=== PATIENT | male | born 1965 | race Caucasian/White ===

== ENCOUNTER → 2017-12-19 16:34 | Outpatient (CLI) | payer BC, SELFPAY ==
[2017-12-19 16:49] LABS: Basophils # 0.1 K/mm3 (0-0.2); Eosinophils # 0.4 K/mm3 (0.0-0.4); Eosinophils % 4.1 % (0.1-12.0); Hematocrit 41.9 % (42.0-52.0); Hemoglobin 13.5 g/dL (14.1-18.0); Lymphocytes # 2.3 K/mm3 (0.7-4.5); Lymphocytes % 23.7 K/mm3 (10-50); Mean Corpuscular HGB Conc 32.2 g/dL (31.8-35.4); Mean Corpuscular Hemoglobin 27.2 pg (27.0-31.2); Mean Corpuscular Volume 84.4 fl (80-94); Mean Platelet Volume 6.7 fl (7.4-10.4); Monocytes # 0.6 K/mm3 (0.1-1.0); Monocytes % 5.7 % (1.7-9.3); Neutrophils # 6.5 K/mm3 (1.8-7.8); Neutrophils % 65.4 % (37.0-80.0); Platelet Count 437 K/mm3 (142-424); Red Blood Count 4.97 M/mm3 (4.60-6.20); White Blood Count 9.9 K/mm3 (4.8-10.8)
[2017-12-19 20:22] LABS: Anion Gap 12.6 mEq/L (5-15); Blood Urea Nitrogen 21 mg/dL (7-18); Calcium 9.3 mg/dL (8.5-10.1); Carbon Dioxide 27 mmol/L (21.0-32.0); Chloride 104 mmol/L (98-107); Creatinine,Serum 1.24 mg/dL (0.70-1.30); Estimated Glomerular Filt Rate 61 ml/min (>60); GFR (African American) 74 ML/MIN (>60); Glucose 84 mg/dL (74-106); Potassium 4.6 mmoL/L (3.5-5.1); Sodium 139 mmol/L (136-145)
== END ==
PROVIDERS: Visit Provider Otolaryngology
DX: Z01.818 Encounter for other preprocedural examination (principal); K13.21 Leukoplakia of oral mucosa, including tongue
CPT/HCPCS: 36415; 80048; 85025

== ENCOUNTER → 2017-12-28 09:26 | Outpatient (CLI) | payer BC, SELFPAY ==
--- NOTE | 2017-12-28 09:38 | XR_ITS ---
XR chest 2V HISTORY: Smoker, hypertension, cough, chest pain ITS.REASON: HTN, SMOKER ORDERING PHYSICIAN: Prashant Andrade MD PATIENT AGE: 52 years COMPARISON: 04/02/2011 FINDINGS: Unremarkable cardiovascular structures. Hyperinflation with attenuation of the peripheral pulmonary vessels consistent with COPD. No lobar consolidation or collapse. Slight increased density is present over both seventh ribs anteriorly probably related to soft tissue attenuation. IMPRESSION: COPD, no change with no acute finding
== END ==
PROVIDERS: PCP Orthopaedic Surgery Orthopaedic Trauma; Visit Provider Otolaryngology
DX: Z01.818 Encounter for other preprocedural examination (principal); K13.21 Leukoplakia of oral mucosa, including tongue
CPT/HCPCS: 71046

== ENCOUNTER → 2018-01-18 13:20 | Outpatient (CLI) | payer BC, SELFPAY ==
[2018-01-18 14:55] VITALS: PULSE 70; PULSE 78
== END ==
PROVIDERS: Family Provider Family Medicine; PCP Family Medicine; Visit Provider Internal Medicine
DX: J44.9 Chronic obstructive pulmonary disease, unspecified (principal); I51.7 Cardiomegaly; Q67.6 Pectus excavatum; R06.02 Shortness of breath; I25.118 Atherosclerotic heart disease of native coronary artery with other forms of angina pectoris; Z72.0 Tobacco use
CPT/HCPCS: 93306; 94060; 94640

== ENCOUNTER → 2018-11-17 10:00 | Outpatient (CLI) | payer BC, SELFPAY ==
--- NOTE | 2018-11-17 10:24 | US_ITS ---
US Kidney CLINICAL INDICATION: ITS.REASON: RENAL INSUFFICIENCY ORDERING PHYSICIAN: Dorota Patton MD PATIENT AGE: 53 years Comparison: None FINDINGS: Kidneys are normal size shape and position. No hydronephrosis. No renal mass or perinephric fluid. IMPRESSION: Negative bilateral renal ultrasound
== END ==
PROVIDERS: PCP Family Medicine; Visit Provider Family Medicine
DX: N28.9 Disorder of kidney and ureter, unspecified (principal)
CPT/HCPCS: 76770

== ENCOUNTER → 2019-02-06 16:36 | Outpatient (CLI) | payer BC, SELFPAY ==
[2019-02-06 16:49] LABS: Basophils % 0.3 % (0.1-2.0); Eosinophils # 0.5 K/mm3 (0.0-0.4); Eosinophils % 3.5 % (0.1-12.0); Hematocrit 40.4 % (42.0-52.0); Hemoglobin 12.6 g/dL (14.1-18.0); Lymphocytes # 2.2 K/mm3 (0.7-4.5); Mean Corpuscular HGB Conc 31.1 g/dL (31.8-35.4); Mean Corpuscular Hemoglobin 26.4 pg (27.0-31.2); Mean Corpuscular Volume 84.9 fl (80-94); Mean Platelet Volume 7.3 fl (7.4-10.4); Monocytes # 0.6 K/mm3 (0.1-1.0); Monocytes % 3.6 % (1.7-9.3); Neutrophils # 12.1 K/mm3 (1.8-7.8); Neutrophils % 78.6 % (37.0-80.0); Platelet Count 573 K/mm3 (142-424); Red Blood Count 4.76 M/mm3 (4.60-6.20); Red Cell Distribution Width 14.8 % (11.5-17.5); White Blood Count 15.4 K/mm3 (4.8-10.8)
[2019-02-06 17:02] LABS: MANUAL DIFFERENTIAL MANUAL DIFFERENTIAL (MANUAL DIFF)
[2019-02-06 20:09] LABS: Eosinophils % 4 % (0-3); Lymphocytes % 13 % (10-50); Monocytes % 5 % (2-9); Neutrophils % 78 % (42-76); Platelet Estimate Slight Increase; RBC Morphology Normal; Total Cells Counted 100
== END ==
PROVIDERS: Visit Provider Family Medicine
DX: D72.825 Bandemia (principal)
CPT/HCPCS: 36415; 85007; 85025

== ENCOUNTER → 2019-12-10 11:02 | Outpatient (CLI) | payer BC, SELFPAY ==
--- NOTE | 2019-12-10 11:12 | FL_ITS ---
PROCEDURE: FL UPPER GI W AIR CLINICAL INDICATION: GERD W/ESOPHAGITIS Patients states any hot food bothers him, since last 3-4 months. COMPARISON: No exams were available for comparison TECHNIQUE: Multiple digital fluoroscopic and spot images were obtained following oral ingestion of effervescent crystals and thick/thin liquid barium contrast. FLUOROSCOPY TIME : 1.47 fluoro time. FINDINGS: There is normal swallowing mechanism and esophageal peristalsis demonstrated. The esophagus appears in normal course and caliber and is well distended on double contrast views. The mucosal pattern is unremarkable. The gastroesophageal junction is normally positioned. No gastroesophageal reflux was detected. The stomach is normal in course with normal mucosal pattern. No evidence of gastric ulceration or other deformity is seen. The duodenal bulb, duodenal loop and upper jejunum are normal. IMPRESSION: Normal upper GI. Dictated by: Jocy Ventura 12/10/2019 12:36 Electronically signed by Jocy Ventura in [place] 12/10/2019 12:36
== END ==
PROVIDERS: PCP Family Medicine; Visit Provider Family Medicine
DX: K21.0 Gastro-esophageal reflux disease with esophagitis (principal)
CPT/HCPCS: 74246

== ENCOUNTER → 2020-12-16 06:57 | Outpatient (CLI) | payer BC, SELFPAY ==
--- NOTE | 2020-12-16 | CA_ITS ---
APPROVED REPORT Exam: Exercise Treadmill Technologist: dori vera, Ht: 5 ft 8 in Wt: 167 lbs BSA: 1.89 m2 HR: 60 bpm BP: 171/73 mmHg Indications: CP Medical History Medications: Asa,,,,, Lipitor,,,,, Diclofenac,,,,, TriaMt/HCTZ,,,,, AmlodiNPINE,,,,, Allergies: NKA Cardiac Risk Factors: HTN, Hyperlipidemia, FHX of CAD, Smoking Stress Test Details Test: Mc HR Resting HR: 68 bpm Max Heart Rate (APMHR): 163.320562 bpm Max HR Achieved: 123 bpm Target HR (85% APMHR): 138.580097 bpm % of APMHR: 75.46 Recovery HR: 111 bpm BP Resting BP: 171.0/73.0 mmHg Max BP: 182.0/70.0 mmHg Recovery BP: 182.0/70.0 mmHg ECG Resting ECG: NSR, ST-T abns inferiorly & laterally Clinical Exercise duration: 8:45 min Highest Stage Achieved: Stage 3: 3.4 mph at 14% grade. Exercise capacity: 10.1 METs Stress ECG Conclusion Patient had increasing chest pain during exercise with SOA. Rare PAC and PVC. 1-2mm of horizontal and downsloping ST depression inferiorly. 1-1.5mm horizontal ST depression anterolaterally. EKG changes positive for ischemia with specificity due to baseline abns. Images reported separately. Test Summary REST . . . . . . . Standing REST . . . . . . . Sitting REST 05:28 0.0 0.0 68 . 171/ 73 . . Stage 1 01:00 10.0 1.7 94 . . . . Stage 1 02:00 10.0 1.7 99 . . . . Stage 1 03:00 10.0 1.7 96 . 158/ 70 . . Stage 2 01:00 12.0 2.5 103 . . . . Stage 2 02:00 12.0 2.5 109 . . . . Stage 2 03:00 12.0 2.5 108 . 178/ 74 . . Stage 3 01:00 14.0 3.4 111 . . . . Stage 3 . . . . . . . Myoview Injected Stage 3 02:00 14.0 3.4 117 . . . . Stage 3 02:45 14.0 3.4 123 . . . Stop exercise at 08:45 RECOVERY 01:00 0.0 0.0 99 . . . . RECOVERY 02:00 0.0 0.0 90 . 182/ 70 . . RECOVERY 03:00 0.0 0.0 83 . 182/ 70 . . RECOVERY 04:00 0.0 0.0 72 . 181/ 76 . . RECOVERY 05:00 0.0 0.0 90 . 181/ 76 . . RECOVERY 06:00 0.0 0.0 78 . 181/ 76 . . RECOVERY 06:52 0.0 0.0 82 . 180/ 60 . . Electronically signed by : Kaushik Leon, 12/16/2020 21:11:06
--- NOTE | 2020-12-16 07:03 | NM_ITS ---
APPROVED REPORT Exam: Nuclear Stress Test Indication: Chest pain, SOB, HTN, Tobacco use, Family history Patient Location: Outpatient Stress Tech: Bessy Nassar [place] Tech:Kaylynn Mancia, ARRT, RT (R)(N) Ht: 5 ft 8 in Wt: 167 lbs HR: 60 bpm BP: 171/73 mmHg BSA: 1.89 m2 BMI: 25.3 History: Chest pain, SOB, HTN, Tobacco use, Family history Procedure: Patient exercised on Mc protocol 8:45 minutes and sec, resting heart rate 60 bpm, resting blood pressure 171/73 mmHg, with exercise maximum heart rate achived was 123 bpm which is 75 % of the maximum predicted heart rate and blood pressure was 182/70 mmHg. Test was stopped due to SOA and chest pain. Patient denied any complaint of chest pain. Patient has Good exercise capacity, achieved 10.1 METs of workload on treadmill, the blood pressure response to exercise was Abnormal. Electrocardiogram Resting electrocardiogram shows sinus rhythm nonspecific ST-T changes, with exercise there is 1.[address] segment depression noted from the baseline EKG. The EKG portion of the exercise Myoview is positive for ischemia. Cardiac Stress and Resting SPECT Images: Cardiac Stress and Resting SPECT images were obtained using technetium 99m Myoview 32.3 mCi stress and 10.06 mCi at rest. Gated SPECT for analysis of segmental wall motion and calculation of the ejection fraction also done, prone images were also obtained. Cardiac stress and resting SPECT images show reversible ischemia involving a moderate to large sized area of anterolateral wall, computer derived ejection fraction is 52% with moderate anterolateral wall hypokinesis, there is transient ischemic dilatation of the left ventricle seen, raising the concerns for presence of multivessel coronary artery disease. Conclusion: 1. The EKG portion of the exercise Myoview is positive for ischemia, patient has good exercise capacity achieved 10.1 METs of workload on treadmill, the blood pressure response to exercise was abnormal, test was stopped due to chest discomfort. 2. Scintigraphic evidence of reversible ischemia involving the anterolateral wall as described above, there is transient ischemic dilatation of the left ventricle seen, raising the concerns for presence of multivessel coronary artery disease. Computer derived ejection fraction is 52% with segmental wall motion abnormality described above, right ventricle is mildly enlarged with normal contractility. 3. Abnormal exercise Myoview study. Electronically signed by : Kaushik Leon, 12/16/2020 21:20:19
--- NOTE | 2020-12-16 08:11 | US_ITS ---
PROCEDURE: US ABDOMEN LIMITED CLINICAL INDICATION: EPIGASTRIC PAIN COMPARISON: US RUQ US RUQ-(ABD LTD)1ORGAN/QUAD/FU from 06/07/2016 FINDINGS: PANCREAS: Unremarkable. No obvious mass or abnormal fluid collection. No ductal dilatation LIVER: No focal liver lesions demonstrated. Homogeneous echogenicity. No intrahepatic biliary ductal dilatation evident. There is appropriate direction of blood flow within a non dilated portal vein RIGHT KIDNEY: Unremarkable. Normal size and echogenicity. No hydronephrosis GALLBLADDER: No shadowing stones are apparent. There is a small polyp along the anterior wall the gallbladder at approximately 3 mm. Gallbladder wall is upper normal from 3-4 mm. IMPRESSION: Small gallbladder polyp with gallbladder wall thickness upper normal at 3 to 4 mm. No shadowing stones or biliary dilatation. Dictated by: Marquis Ham MD 12/16/2020 15:25 Marquis Ham MD in [place] 12/16/2020 15:25
--- NOTE | 2020-12-16 08:33 | HMH.ITSHM ---
Current Home Medications as stated by this patient Arjun Melton or auto claim representative. []LEVOCETIRIZINE CETIRIZINE MONTELUKAST FAMOTIDINE LISINOPRIL METOPROLOL ESOMEPRAZOLE
== END ==
PROVIDERS: PCP Family Medicine; Visit Provider Family Medicine
DX: R07.9 Chest pain, unspecified (principal); R10.13 Epigastric pain
CPT/HCPCS: 76705; 78452; 93017; A9502

== ENCOUNTER → 2021-05-26 14:09 | Outpatient (CLI) | payer BC, SELFPAY ==
--- NOTE | 2021-05-26 14:17 | XR_ITS ---
FINAL REPORT CLINICAL HISTORY: COVID TESTING..cough..fever..sob FINDINGS: SINGLE VIEW CHEST. The heart is normal in size. The mediastinum is unremarkable. The lungs are clear. There is no pneumothorax. IMPRESSION: No acute process. Reviewed, Interpreted and Dictated by Saroj Putnam III, MD Transcribed by Lilo Stover Authenticated by Saroj Putnam III, MD on 05/26/2021 03:44:24 PM [facility]
[2021-05-26 14:33] LABS: Basophils # 0.1 K/mm3 (0-0.2); Basophils % 1.6 % (0.1-2.0); Eosinophils # 0.1 K/mm3 (0.0-0.4); Eosinophils % 1.2 % (0.1-12.0); Hematocrit 35.8 % (42.0-52.0); Hemoglobin 11.3 g/dL (14.1-18.0); Lymphocytes # 1.1 K/mm3 (0.7-4.5); Lymphocytes % 18.8 % (10-50); Mean Corpuscular HGB Conc 31.6 g/dL (31.8-35.4); Mean Corpuscular Hemoglobin 25.7 pg (27.0-31.2); Mean Corpuscular Volume 81.3 fl (80-94); Mean Platelet Volume 7.9 fl (7.4-10.4); Monocytes # 0.8 K/mm3 (0.1-1.0); Monocytes % 13.3 % (1.7-9.3); Neutrophils # 3.8 K/mm3 (1.8-7.8); Neutrophils % 65.1 % (37.0-80.0); Platelet Count 438 K/mm3 (142-424); Red Cell Distribution Width 16.9 % (11.5-17.5); White Blood Count 5.9 K/mm3 (4.8-10.8)
== END ==
PROVIDERS: PCP Family Medicine; Visit Provider Nurse Practitioner
DX: U07.1 COVID-19 (principal)
CPT/HCPCS: 36415; 71045; 85025; C9803; U0003; U0005

== ENCOUNTER 2023-01-14 15:10 | Outpatient (CLI) | payer BC, SELFPAY ==
[2023-01-14 15:18] VITALS: BP 194/90; PULSE 70; RESP 16; TEMP 36.7
[2023-01-14 16:45] VITALS: BP 188/82; PULSE 79; RESP 16
[2023-01-14 16:50] VITALS: BP 188/82; PULSE 79; RESP 18; O2SAT 98
== END 2023-01-14 16:50 | disposition home or self-care (01) ==
LOC: INF 15:11
PROVIDERS: PCP Family Medicine; Visit Provider Physician Assistant
DX: E86.0 Dehydration (principal); K52.9 Noninfective gastroenteritis and colitis, unspecified
CPT/HCPCS: 96360; J2405

== ENCOUNTER → 2023-01-14 15:25 | Outpatient (CLI) | payer BC, SELFPAY ==
[2023-01-14 16:54] LABS: Alanine Aminotransferase 19 U/L (12-78); Albumin Level 3.9 g/dl (3.5-5.0); Albumin/Globulin Ratio 1.3 (1.1-1.8); Alkaline Phosphatase 85 U/L (38-126); Amylase 99 U/L (30-110); Anion Gap 15.9 mEq/L (5-15); Aspartate Amino Transferase 24 U/L (17-59); Bilirubin,Total 0.2 mg/dl (0.2-1.3); Blood Urea Nitrogen 16 mg/dl (9-20); Calcium 9.3 mg/dl (8.4-10.2); Carbon Dioxide 33 mmol/L (22.0-30.0); Chloride 92 mmol/L (98-107); Estimated Glomerular Filt Rate 52 ml/min (>60); GFR (African American) 63 ML/MIN (>60); Glucose 105 mg/dl (74-100); Lipase 119 U/L (23-300); Potassium 3.9 mmoL/L (3.5-5.1); Sodium 137 mmol/L (136-145); Total Protein,Serum 6.9 g/dl (6.3-8.2)
== END ==
PROVIDERS: PCP Physician Assistant; Visit Provider Physician Assistant
DX: K52.9 Noninfective gastroenteritis and colitis, unspecified (principal)
CPT/HCPCS: 80053; 82150; 83690

== ENCOUNTER 2023-06-09 08:54 | Outpatient (RCR) | payer BC, SELFPAY | END 2023-09-07 14:00 | disposition home or self-care (01) | LOC: PT 08:54 | PROVIDERS: Visit Provider Internal Medicine Cardiovascular Disease | DX: I25.10 Atherosclerotic heart disease of native coronary artery without angina pectoris (principal); Z95.5 Presence of coronary angioplasty implant and graft | CPT/HCPCS: 93798 ==

== ENCOUNTER 2023-06-30 14:55 | Inpatient (IN) | payer BC, SELFPAY ==
--- NOTE | 2023-06-30 15:05 | EXP.CARD.CON ---
History of Present Illness History of Present Illness Consult date: 06/30/23 Consult reason: chest pain Chief complaint: chest pain History of present illness: This is a 57-year-old white male with past medical history of coronary artery disease with recent stenting to mid to distal circumflex with crossing of OM in May 2023, remaining mild plaque in mid LAD and mild to moderate disease in RCA, uncontrolled hypertension, hyperlipidemia, former tobacco user and chronic kidney disease presented to cardiology clinic today for a second opinion regarding chest pain. Patient reports he had a left heart cath in May by Dr. Dorsey at [facility] resulting in stenting to mid to distal circumflex. Patient reports he has had continued chest pain since then both with activity and at rest. Patient followed up with Dr. Romero and was prescribed Ranexa without relief of symptoms. Patient decided to get a second opinion from [facility] cardiology today. Patient describes progressive and worsening midsternal chest pain without radiation worse with activity and present at rest most days. Of note patient's systolic blood pressure was 140 in the office. Patient had an echo in May 2023 at [facility] which showed a normal ejection fraction and no significant valve disease. Due to patient experiencing continued progressive and worsening chest pain while on 3 antianginals patient will be admitted for unstable angina and will undergo left heart catheterization for further evaluation. Office EKG shows sinus rhythm with ST-T depression in the inferior and lateral leads with T wave inversion noted. Labs are pending. [facility] Disclaimer: The information contained in this section may have been updated after the patient was seen, as this information can be updated by other users. Medical History COPD (chronic obstructive pulmonary disease) Fatigue SMOOTH (obstructive sleep apnea) Pectus excavatum Right atrial enlargement Social History Smoking Status: Current every day smoker tobacco type: cigarettes packs per day: 1 second hand exposure: Yes alcohol intake: current substance use type: denies use current occupational status: employed Travel in the last 8 weeks: None household members: significant other housing: house current occupation: [employer] current occupational exposures/hazards: No caffeine: No Review of Systems Review of Systems Review of systems:: pertinent systems reviewed and negative unless documented below *Cardiovascular Cardiovascular: Reports chest pain Exam Constitutional Constitutional: no acute distress *Routine Respiratory Exam Respiratory: Present CTA bilaterally and symmetric chest movement *Routine Cardiovascular Exam Cardiovascular: Present RRR, Normal S1 and Normal S2 *Routine Abdominal Exam Abdominal: Present soft and normoactive bowel sounds; Absent tenderness *Routine Extremities Exam Extremities: Present full ROM and normal capillary refill; Absent edema *Routine Skin Exam Skin: Present intact, dry and warm Detailed Neck Exam: Thyroids Thyroid: Absent bruit Meds Home Medications and Allergies Home Medications Medication Instructions Recorded Confirmed Type aspirin 81 mg tablet,delayed 81 mg PO DAILY Heart Health 12/28/17 06/30/23 History release clopidogrel 75 mg tablet 75 mg PO DAILY Platelet Inhibitor 01/02/21 06/30/23 History metoprolol succinate 50 mg 50 mg PO DAILY High Blood Pressure 01/02/21 06/30/23 History tablet,extended release 24 hr atorvastatin 80 mg tablet 80 mg PO HS Cholesterol 06/30/23 06/30/23 History cholecalciferol (vitamin D3) 50 50 mcg PO DAILY Supplement 06/30/23 06/30/23 History mcg (2,000 unit) capsule ferrous sulfate 325 mg (65 mg 325 mg PO DAILY 06/30/23 06/30/23 History iron) tablet,delayed release isosorbide mononitrate 30 mg 30 mg PO DAILY High Blood Pressure 06/30/23 06/30/23 History tablet,extended release 24 hr lisinopril 10 mg tablet 10 mg PO DAILY High Blood Pressure 06/30/23 06/30/23 History nitroglycerin 0.4 mg sublingual 0.4 mg sublingual Q5MINP PRN Chest 06/30/23 06/30/23 History tablet Pain omeprazole 40 mg capsule,delayed 40 mg PO DAILY Acid Reflux 06/30/23 06/30/23 History release pramipexole 0.125 mg tablet 0.125 mg PO DAILY 06/30/23 06/30/23 History ranolazine 500 mg tablet,extended 500 mg PO BID Angina 06/30/23 06/30/23 History release,12 hr New Prescriptions to Start Prescriptions: Allergies Allergy/AdvReac Type Severity Reaction Status Date / Time No Known Allergies Allergy Verified 06/30/23 13:18 Assessment and Plan *Assessment and plan (1) HLD (hyperlipidemia): Status: Chronic Qualifiers: Hyperlipidemia type: other hyperlipidemia Qualified Code(s): E78.4 - Other hyperlipidemia Category: Medical Code(s): E78.5 - Hyperlipidemia, unspecified (2) CAD (coronary artery disease): Status: Chronic Qualifiers: Associated angina: with other forms of angina Coronary Disease-Associated Artery/Lesion type: false pass artery [place] vs. transplanted heart: false pass heart Qualified Code(s): I25.118 - Atherosclerotic heart disease of false pass coronary artery with other forms of angina pectoris Category: Medical Code(s): I25.10 - Atherosclerotic heart disease of false pass coronary artery without angina pectoris (3) HHD (hypertensive heart disease): Status: Chronic Qualifiers: Heart failure presence: without heart failure Qualified Code(s): I11.9 - Hypertensive heart disease without heart failure Category: Medical Code(s): I11.9 - Hypertensive heart disease without heart failure (4) COPD (chronic obstructive pulmonary disease): Status: Chronic Qualifiers: COPD type: emphysema Emphysema type: other Qualified Code(s): J43.8 - Other emphysema Category: Medical Code(s): J44.9 - Chronic obstructive pulmonary disease, unspecified (5) SMOOTH (obstructive sleep apnea): Status: Chronic Category: Medical Code(s): G47.33 - Obstructive sleep apnea (adult) (pediatric) (6) Tobacco user: Status: Chronic Category: Social Hx Code(s): Z72.0 - Tobacco use Plan Unstable angina CCS 3 CAD -Echo06/03/2023: Normal LV size and function, no significant valve disease. Aortic root 3.7 cm. Will repeat limited echo. -[facility] 06/06/2023: Dr. Khalil, 3.0 x 28 mm Synergy MART to mid to distal circumflex with crossing of OM but with REED-3 flow. Remaining mild plaque in mid LAD. Mild to moderate disease of RCA noted. -Recurrent angina despite 3 antianginal medications and DAPT therapy with aspirin and Plavix (intolerant of Brilinta) -EKG today is NSR with ST-T wave depression in the inferior and lateral leads with T wave inversion -Plan for [facility] tomorrow. Discussed risk versus benefits with patient he is agreeable, continue dapt with aspirin and plavix, BB and statin -Dose of Ranexa increased to 1000 mg p.o. twice daily -Nitropaste applied -Heparin drip started HTN -continue metoprolol 50 mg daily. Increase lisinopril to 20mg daily HLD -LDL goal < 55, LDL is pending, on atorvastatin 80mg daily Tobacco use -smoking cessation 12 weeks ago CKD -stage II with creatinine 1.5 and GFR 50 06/30/2023: Will proceed with left heart catheterization tomorrow to further evaluate coronary artery disease. Patient is agreeable to plan. Cardiac meds: Aspirin 81 mg p.o. daily Atorvastatin 80 mg p.o. daily Plavix 75 mg p.o. daily Isosorbide mononitrate 30 mg p.o. daily Lisinopril 20 mg daily Metoprolol succinate 50 mg p.o. daily Omeprazole 40 mg p.o. daily Ranexa 1000 mg p.o. twice daily
[2023-06-30 15:11] VITALS: O2SAT 98
--- NOTE | 2023-06-30 15:19 | CA_ITS ---
APPROVED REPORT EXAM: Limited 2D Echocardiogram Final Inspection Supervisor: Jyoti East RT(R) Ht: 5 ft 8 in Wt: 143lbs BSA: 1.77 BP: 148/70 mmHg Indications: angina, COPD, smoker, recent heart cath and recent echo (06/03/23) at outside facility with stent placed. fatigue post cath. HTN, hyperlipidemia, SMOOTH, CAD. Ordered as limited echo for EF assessment. 2D Dimensions LVEF (Borges's) 63.20 % M: 52 - 72 LV Volume 94.40 mL M: 62 - 150 LV Volume Index 53.853095 mL/m2 M: 34 - 74 EF AP4 63.50 % EF AP2 62.7 % EF BP 63.2 % GL Strain -16.9 % M-Mode Dimensions RVDd 2.73 cm (0.9-2.6) LVDd 4.95 cm (3.5-5.7) LVDs 3.98 cm (3.5-5.7) IVSd 0.75 cm (0.6-1.1) PWd 0.79 cm (0.6-1.1) EF (Teich) 50.10% FS 19.60% EDV (Teich) 115.50 mL ESV (Teich) 69.20 mL LV Diastology E Decel Time 230 (160-240 msec) E/A Ratio 1.1 Mitral Valve MV E Max Regulo. 83.0 (40-130 cm/s) MV A Velocity 77.0 (40-130 cm/s) E/A Ratio 1.08 MV PHT 67.0 ms Other Information Study Quality: Fair Conclusion This is a limited TTE to evaluate for LVEF. Limited windows were obtained. The left ventricle is normal in size. There is normal LV wall thickness. There are no regional wall motion abnormalities noted. LVEF is 60%. The right ventricle is normal in size and function. There is no pericardial effusion present. Electronically signed by : Alivia Hall MD 07/02/2023 19:18:19
[2023-06-30 15:20] VITALS: BP 144/86; PULSE 65; RESP 18; TEMP 36.8; O2SAT 98; BMI 23.1
--- NOTE | 2023-06-30 15:30 | P.CONPHA_ITS ---
[facility] Pharmacy Heparin Dosing Demographic Data Admission date:: 06/30/23 Date: 06/30/23 Time: 15:31 Allergies Allergy/AdvReac Type Severity Reaction Status Date / Time No Known Allergies Allergy Verified 06/30/23 15:57 Height: 1.73 m Weight: 69.4 kg Indication Medication therapy:: Heparin Current Active Problems (Updated 07/01/23 @ 09:06 by ISAÍAS Jacobo) Tobacco user (Chronic) Chronic renal insufficiency, stage II (mild) (Acute) Chest pain (Acute) History of coronary artery stent placement (Acute) CAD (coronary artery disease) (Chronic) HHD (hypertensive heart disease) (Chronic) HLD (hyperlipidemia) (Chronic) Fatigue (Chronic) SMOOTH (obstructive sleep apnea) (Chronic) COPD (chronic obstructive pulmonary disease) (Chronic) CVA?: No Bleeding problem?: No Kidney disease?: No GA?: No Desired PTT range:: 50-75 seconds Monitoring Dose Monitor 1: Date: 06/30/23 Time: 15:35 PTT Result:: 27.8 Infusion Rate:: 850 UNITS/HR Comment:: 4,000 UNIT BOLUS Dose Monitor 2: Date: 06/30/23 Time: 22:30 PTT Result:: 128.4 Infusion Rate:: DECREASE RATE TO 650 UNITS/HR Dose Monitor 3: Date: 07/01/23 Time: 05:00 PTT Result:: 100.5 Infusion Rate:: DECREASE RATE TO 450 UNITS/HR Dose Monitor 4: Date: 07/01/23 Time: 12:00 Comment:: PATIENT WAS TAKEN TO DIRECTOR OF SOFTWARE DEVELOPMENT AND HEPARIN DRIP WAS STOPPED Core Measures Is INR > or = 2 at discharge?: No Most Recent Labs:: N/A Were Heparin and Warfarin started on the same day?: No If not, why?: HEPARIN DRIP STOPPED AFTER CATH
--- NOTE | 2023-06-30 15:33 | HMH.PHAINT1 ---
Pharmacy Intervention Comments: MEDICATION RECONCILIATION COMPLETED ON PATIENT USING EXTERNAL FILL HISTORY FROM PHARMACY AND LIST FROM CARDIOLOGY OFFICE. -ROSITA VASQUEZ, [place]
[2023-06-30 15:43] LABS: Basophils # 0.1 K/mm3 (0-0.2); Basophils % 0.6 % (0.1-2.0); Eosinophils # 0.6 K/mm3 (0.0-0.4); Eosinophils % 7.2 % (0.1-12.0); Hematocrit 35.1 % (42.0-52.0); Hemoglobin 11.3 g/dL (14.1-18.0); Lymphocytes # 2.1 K/mm3 (0.7-4.5); Mean Corpuscular HGB Conc 32.2 g/dL (31.8-35.4); Mean Corpuscular Hemoglobin 25.3 pg (27.0-31.2); Mean Corpuscular Volume 78.6 fl (80-94); Mean Platelet Volume 7.7 fl (7.4-10.4); Monocytes # 0.4 K/mm3 (0.1-1.0); Monocytes % 5.3 % (1.7-9.3); Neutrophils # 4.6 K/mm3 (1.8-7.8); Platelet Count 538 K/mm3 (142-424); Red Blood Count 4.47 M/mm3 (4.60-6.20); Red Cell Distribution Width 16.4 % (11.5-17.5); White Blood Count 7.7 K/mm3 (4.8-10.8)
[2023-06-30 15:58] LABS: Alanine Aminotransferase 15 U/L (12-78); Albumin Level 4.3 g/dl (3.5-5.0); Albumin/Globulin Ratio 1.5 (1.1-1.8); Alkaline Phosphatase 59 U/L (38-126); Anion Gap 13.3 mEq/L (5-15); Aspartate Amino Transferase 23 U/L (17-59); Bilirubin,Total 0.2 mg/dl (0.2-1.3); Blood Urea Nitrogen 10 mg/dl (9-20); Calcium 9.2 mg/dl (8.4-10.2); Carbon Dioxide 29 mmol/L (22.0-30.0); Chloride 102 mmol/L (98-107); Chol/HDL Ratio 4.1 (1-3.5); Cholesterol 151 mg/dl (140-200); Creatinine Clearance Estimated 49 mL/min (50-200); Estimated Glomerular Filt Rate 44 ml/min (>60); GFR (African American) 54 ML/MIN (>60); Globulin 2.8 g/dL (1.3-3.2); Glucose 99 mg/dl (74-100); HDL Cholesterol 37 mg/dl (40-60); Potassium 4.3 mmoL/L (3.5-5.1); Sodium 140 mmol/L (136-145); Total Protein,Serum 7.1 g/dl (6.3-8.2); Triglycerides 227 mg/dl (30-150); VLDL Cholesterol 45 mg/dL (0-40)
[2023-06-30 16:00] VITALS: PULSE 60
[2023-06-30 16:02] LABS: PTT Heparin (inpatient only) 27.8 Seconds (23.6-34.0)
[2023-06-30 16:09] LABS: Direct LDL Cholesterol 73.51 mg/dL (100-129)
--- NOTE | 2023-06-30 16:17 | PC.NURSE ---
Called pharmacy and it's okay to start heparin gtt.
[2023-06-30] MEDS: HEPARIN SODIUM 5,000 UNIT/ML VIAL 4000 UNIT IV (16:26)
[2023-06-30] MEDS: NITROGLYCERIN 1 GM OINTMENT TD (16:26)
[2023-06-30] MEDS: PANTOPRAZOLE 40MG TABLET 40 MG PO (16:26)
[2023-06-30 16:27] LABS: Troponin I < 0.01 ng/ml (0.00-0.034)
[2023-06-30] MEDS: HEPARIN SODIUM,PORCINE/D5W 500 ML 17 UNIT IV (16:51)
[2023-06-30 19:26] LABS: Hemoglobin A1C 5.5 % (4.0-6.0)
[2023-06-30 20:00] VITALS: BP 146/74; PULSE 71; RESP 18; TEMP 36.6; O2SAT 99
[2023-06-30 20:13] VITALS: PULSE 70
[2023-06-30] MEDS: RANOLAZINE 500MG ER TABLET 1000 MG PO (21:32)
[2023-06-30] MEDS: ATORVASTATIN 40MG TABLET 80 MG PO (21:32)
[2023-06-30 23:05] LABS: PTT Heparin (inpatient only) 128.4 Seconds (23.6-34.0)
[2023-06-30] MEDS: HEPARIN SODIUM,PORCINE/D5W 500 ML 13 UNIT IV (23:12)
[2023-07-01] VITALS (24 sets, daily range): BP systolic 104–157; BP diastolic 48–90; PULSE 52–81; RESP 12–20; TEMP 36.4–36.8; O2SAT 94–100; BMI 22.7
[2023-07-01] MEDS: NITROGLYCERIN 1 GM OINTMENT TD ×3 (00:07→22:35)
--- NOTE | 2023-07-01 05:27 | PC.NURSE ---
Patient has had a good night. Patient chest pain has been well controlled. Patient has not complained of chest pain. Patient remains on the heprain drip. Patient has been NPO since midnight. No other issues noted
[2023-07-01 05:46] LABS: PTT Heparin (inpatient only) 100.5 Seconds (23.6-34.0)
[2023-07-01] MEDS: HEPARIN SODIUM,PORCINE/D5W 500 ML 9 UNIT IV (06:00)
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
--- NOTE | 2023-07-01 08:24 | EXP.HP ---
History of Present Illness *Admission Date: 06/30/23 *Reason for visit:: chest pain *History of present illness: This is a 57-year-old white male with past medical history of coronary artery disease with recent stenting to mid to distal circumflex with crossing of OM in May 2023, remaining mild plaque in mid LAD and mild to moderate disease in RCA, uncontrolled hypertension, hyperlipidemia, former tobacco user and chronic kidney disease presented to cardiology clinic today for a second opinion regarding chest pain. Patient reports he had a left heart cath in May by Dr. Dorsey at [facility] resulting in stenting to mid to distal circumflex. Patient reports he has had continued chest pain since then both with activity and at rest. Patient followed up with Dr. Romero and was prescribed Ranexa without relief of symptoms. Patient decided to get a second opinion from [facility] cardiology today. Patient describes progressive and worsening midsternal chest pain without radiation worse with activity and present at rest most days. Of note patient's systolic blood pressure was 140 in the office. Patient had an echo in May 2023 at [facility] which showed a normal ejection fraction and no significant valve disease. Due to patient experiencing continued progressive and worsening chest pain while on 3 antianginals patient will be admitted for unstable angina and will undergo left heart catheterization for further evaluation. Office EKG shows sinus rhythm with ST-T depression in the inferior and lateral leads with T wave inversion noted. Labs are pending. (above as per cardiology) Patient states he had horrible chest pain yesterday. It has eased some today. [facility] Disclaimer: The information contained in this section may have been updated after the patient was seen, as this information can be updated by other users. Medical History CAD (coronary artery disease) Chronic renal insufficiency, stage II (mild) COPD (chronic obstructive pulmonary disease) Fatigue Metatarsal fracture SMOOTH (obstructive sleep apnea) Pectus excavatum Right atrial enlargement Tobacco user Surgical History (Updated 07/01/23 @ 09:05 by ISAÍAS Jacobo) H/O shoulder surgery History of coronary artery stent placement History of neck surgery Hx of knee surgery Family History Family history of myocardial infarction Father Social History (Updated 06/30/23 @ 16:12 by Polina Velázquez RN) Smoking Status: Former smoker tobacco type: cigarettes packs per day: 1 second hand exposure: Yes alcohol intake: current substance use type: denies use current occupational status: employed Travel in the last 8 weeks: None household members: significant other housing: house current occupation: [employer] current occupational exposures/hazards: No caffeine: No Review of Systems Constitutional Constitutional: Reports fatigue, Denies fever(s), Denies headache(s) and Reports weakness Eyes Eyes: Denies blurry vision and Denies diplopia ENT Ears, Nose, Mouth, and Throat: Denies dizziness, Denies headache(s) and Denies sore throat *Cardiovascular Cardiovascular: Reports chest pain with activity and Reports dyspnea *Respiratory Respiratory: Denies cough, Reports dyspnea and Denies wheezing *Gastrointestinal Gastrointestinal: Denies abdominal pain, Denies loose stools, Denies nausea and Denies vomiting *Genitourinary Genitourinary: Denies difficulty urinating and Denies dysuria *Musculoskeletal Musculoskeletal: Denies arthralgias *Neurologic Neurologic: Denies dizziness, Denies headache(s) and Reports weakness Endocrine Endocrine: Reports fatigue Allergic/Immunologic Allergic/Immunologic: Denies wheezing Meds Home Medications and Allergies Home Medications Medication Instructions Recorded Confirmed Type aspirin 81 mg tablet,delayed 81 mg PO DAILY Heart Health 12/28/17 06/30/23 History release clopidogrel 75 mg tablet 75 mg PO DAILY Platelet Inhibitor 01/02/21 06/30/23 History metoprolol succinate 50 mg 50 mg PO DAILY High Blood Pressure 01/02/21 06/30/23 History tablet,extended release 24 hr atorvastatin 80 mg tablet 80 mg PO HS Cholesterol 06/30/23 06/30/23 History cholecalciferol (vitamin D3) 50 50 mcg PO DAILY Supplement 06/30/23 06/30/23 History mcg (2,000 unit) capsule ferrous sulfate 325 mg (65 mg 325 mg PO DAILY 06/30/23 06/30/23 History iron) tablet,delayed release isosorbide mononitrate 30 mg 30 mg PO DAILY High Blood Pressure 06/30/23 06/30/23 History tablet,extended release 24 hr lisinopril 10 mg tablet 10 mg PO DAILY High Blood Pressure 06/30/23 06/30/23 History nitroglycerin 0.4 mg sublingual 0.4 mg sublingual Q5MINP PRN Chest 06/30/23 06/30/23 History tablet Pain omeprazole 40 mg capsule,delayed 40 mg PO DAILY Acid Reflux 06/30/23 06/30/23 History release pramipexole 0.125 mg tablet 0.125 mg PO DAILY 06/30/23 06/30/23 History ranolazine 500 mg tablet,extended 500 mg PO BID Angina 06/30/23 06/30/23 History release,12 hr New Prescriptions to Start Prescriptions: Allergies Allergy/AdvReac Type Severity Reaction Status Date / Time No Known Allergies Allergy Verified 06/30/23 15:57 Exam Data for Last 24 hours Vital signs and Labs for Last 24 Hours: Temp Pulse Resp BP Pulse Ox O2 Del Method 98.3 F 60 20 104/48 L 95 Room Air 07/01/23 04:02 07/01/23 04:30 07/01/23 04:02 07/01/23 04:02 07/01/23 04:02 07/01/23 08:14 Laboratory Results - last 24 hr 06/30/23 15:35: WBC 7.7, RBC 4.47 L, Hgb 11.3 L, Hct 35.1 L, MCV 78.6 L, MCH 25.3 L, MCHC 32.2, RDW 16.4, Plt Count 538 H, MPV 7.7, Neut % (Auto) 60.0, Lymph % (Auto) 27.0, [place] % (Auto) 5.3, Eos % (Auto) 7.2, Baso % (Auto) 0.6, Neut # (Auto) 4.6, Lymph # (Auto) 2.1, [place] # (Auto) 0.4, Eos # (Auto) 0.6 H, Baso # (Auto) 0.1, APTT 27.8, Sodium 140, Potassium 4.3, Chloride 102, Carbon Dioxide 29, Anion Gap 13.3, BUN 10, Creatinine 1.60 H, Estimated Creat Clear 49, Estimated GFR 44 L, Est GFR ( Amer) 54 L, Glucose 99, Hemoglobin A1c 5.5, Calcium 9.2, Total Bilirubin 0.2, AST 23, ALT 15, Alkaline Phosphatase 59, Troponin I < 0.01, Total Protein 7.1, Albumin 4.3, Globulin 2.8, Albumin/Globulin Ratio 1.5, Triglycerides 227 H, Cholesterol 151, LDL Cholesterol Direct 73.51 L, VLDL Cholesterol 45 H, HDL Cholesterol 37 L, Cholesterol/HDL Ratio 4.1 H 06/30/23 22:24: APTT 128.4 H* 07/01/23 05:10: APTT 100.5 H* I & O for Last 24 hours: Intake & Output 06/28/23 06/29/23 06/30/23 07/01/23 11:59 11:59 11:59 11:59 Intake Total 335 / 335 Balance 335 / 335 Weight 150 lb 4.8 oz Constitutional Constitutional: no acute distress *Routine HEENT Exam Head: Present normocephalic and atraumatic Eye: Present EOMI and PERRL ENT: Present mucous membranes moist *Routine Neck Exam Neck: Present supple and full ROM *Routine Respiratory Exam Respiratory: Present CTA bilaterally *Routine Cardiovascular Exam Cardiovascular: Present RRR *Routine Abdominal Exam Abdominal: Present soft and normoactive bowel sounds; Absent tenderness *Routine Rectal Exam Rectal:: deferred *Routine Genitalia Exam Genitalia:: deferred *Routine Extremities Exam Extremities: Absent cyanosis, clubbing or edema *Routine Skin Exam Skin: Present intact; Absent erythema *Routine Neurological Exam Neurological: Present alert and oriented X3 Assessment and Plan *Assessment and plan (1) Chest pain: Status: Acute Category: Medical Code(s): R07.9 - Chest pain, unspecified (2) CAD (coronary artery disease): Status: Chronic Qualifiers: Associated angina: with other forms of angina Coronary Disease-Associated Artery/Lesion type: [place] artery [place] vs. transplanted heart: [place] heart Qualified Code(s): I25.118 - Atherosclerotic heart disease of [place] coronary artery with other forms of angina pectoris Category: Medical Code(s): I25.10 - Atherosclerotic heart disease of [place] coronary artery without angina pectoris (3) HLD (hyperlipidemia): Status: Chronic Qualifiers: Hyperlipidemia type: other hyperlipidemia Qualified Code(s): E78.4 - Other hyperlipidemia Category: Medical Code(s): E78.5 - Hyperlipidemia, unspecified (4) HHD (hypertensive heart disease): Status: Chronic Qualifiers: Heart failure presence: without heart failure Qualified Code(s): I11.9 - Hypertensive heart disease without heart failure Category: Medical Code(s): I11.9 - Hypertensive heart disease without heart failure (5) COPD (chronic obstructive pulmonary disease): Status: Chronic Qualifiers: COPD type: emphysema Emphysema type: other Qualified Code(s): J43.8 - Other emphysema Category: Medical Code(s): J44.9 - Chronic obstructive pulmonary disease, unspecified (6) SMOOTH (obstructive sleep apnea): Status: Chronic Category: Medical Code(s): G47.33 - Obstructive sleep apnea (adult) (pediatric) (7) Tobacco user: Status: Chronic Category: Social Hx Code(s): Z72.0 - Tobacco use (8) History of coronary artery stent placement: Status: Acute Category: Surgical Code(s): Z95.5 - Presence of coronary angioplasty implant and graft (9) Fatigue: Status: Chronic Qualifiers: Fatigue type: chronic, unspecified Qualified Code(s): R53.82 - Chronic fatigue, unspecified Category: Medical Code(s): R53.83 - Other fatigue (10) Chronic renal insufficiency, stage II (mild): Status: Acute Category: Medical Code(s): N18.2 - Chronic kidney disease, stage 2 (mild) Plan Cardiology is going to proceed with a left heart cath this am. Will have to monitor renal function closely. Dr. Mcgee entry - Saw patient, agree with above note.
[2023-07-01] MEDS: ASPIRIN EC 81MG TABLET 81 MG PO (08:26)
[2023-07-01] MEDS: CHOLECALCIFEROL 1,000 UNITS (25MCG) TABLET 50 MCG PO (08:26)
[2023-07-01] MEDS: LISINOPRIL 20MG TABLET 20 MG PO (08:26)
[2023-07-01] MEDS: CLOPIDOGREL 75MG TAB 75 MG PO (08:26)
[2023-07-01] MEDS: ISOSORBIDE MONO 30MG TAB.ER.24H 30 MG PO (08:26)
[2023-07-01] MEDS: PRAMIPEXOLE 0.125MG TABLET 0.125 MG PO (08:26)
[2023-07-01] MEDS: FERROUS SULFATE 325MG TABLET 325 MG PO (08:26)
[2023-07-01] MEDS: RANOLAZINE 500MG ER TABLET 1000 MG PO ×2 (08:27→20:14)
--- NOTE | 2023-07-01 11:07 | EXP.CARD.PN ---
Subjective Subjective Date: 07/01/23 Time: 08:30 Interval history: Doing well this morning, denies chest pain or shortness of breath. Awaiting left heart catheterization. Morning labs reviewed. Exam Data for Last 24 hours Vital signs and Labs for Last 24 Hours: Temp Pulse Resp BP Pulse Ox O2 Del Method 97.8 F 54 L 16 124/70 99 Room Air 07/01/23 08:00 07/01/23 08:00 07/01/23 08:00 07/01/23 08:00 07/01/23 08:00 07/01/23 08:14 Laboratory Results - last 24 hr 06/30/23 15:35: WBC 7.7, RBC 4.47 L, Hgb 11.3 L, Hct 35.1 L, MCV 78.6 L, MCH 25.3 L, MCHC 32.2, RDW 16.4, Plt Count 538 H, MPV 7.7, Neut % (Auto) 60.0, Lymph % (Auto) 27.0, [place] % (Auto) 5.3, Eos % (Auto) 7.2, Baso % (Auto) 0.6, Neut # (Auto) 4.6, Lymph # (Auto) 2.1, [place] # (Auto) 0.4, Eos # (Auto) 0.6 H, Baso # (Auto) 0.1, APTT 27.8, Sodium 140, Potassium 4.3, Chloride 102, Carbon Dioxide 29, Anion Gap 13.3, BUN 10, Creatinine 1.60 H, Estimated Creat Clear 49, Estimated GFR 44 L, Est GFR ( Amer) 54 L, Glucose 99, Hemoglobin A1c 5.5, Calcium 9.2, Total Bilirubin 0.2, AST 23, ALT 15, Alkaline Phosphatase 59, Troponin I < 0.01, Total Protein 7.1, Albumin 4.3, Globulin 2.8, Albumin/Globulin Ratio 1.5, Triglycerides 227 H, Cholesterol 151, LDL Cholesterol Direct 73.51 L, VLDL Cholesterol 45 H, HDL Cholesterol 37 L, Cholesterol/HDL Ratio 4.1 H 06/30/23 22:24: APTT 128.4 H* 07/01/23 05:10: APTT 100.5 H* I & O for Last 24 hours: Intake & Output 06/28/23 06/29/23 06/30/23 07/01/23 23:59 23:59 23:59 23:59 Intake Total 335 / 335 0 / 0 Balance 335 / 335 0 / 0 Weight 153 lb 0.013 oz 150 lb 4.8 oz Constitutional Constitutional: no acute distress *Routine Respiratory Exam Respiratory: Present CTA bilaterally and symmetric chest movement *Routine Cardiovascular Exam Cardiovascular: Present RRR, Normal S1 and Normal S2 *Routine Abdominal Exam Abdominal: Present soft and normoactive bowel sounds; Absent tenderness *Routine Extremities Exam Extremities: Present full ROM and normal capillary refill; Absent edema *Routine Skin Exam Skin: Present intact, dry and warm Detailed Neck Exam: Thyroids Thyroid: Absent bruit Progress Note: A&P Assessment and plan (1) Chest pain: Status: Acute (2) CAD (coronary artery disease): Status: Chronic (3) HLD (hyperlipidemia): Status: Chronic (4) HHD (hypertensive heart disease): Status: Chronic (5) COPD (chronic obstructive pulmonary disease): Status: Chronic (6) SMOOTH (obstructive sleep apnea): Status: Chronic (7) Tobacco user: Status: Chronic (8) History of coronary artery stent placement: Status: Acute (9) Fatigue: Status: Chronic (10) Chronic renal insufficiency, stage II (mild): Status: Acute Assessment and Plan Assessment and Plan for All Diagnoses:: Unstable angina CCS 3 CAD -Echo06/03/2023: Normal LV size and function, no significant valve disease. Aortic root 3.7 cm. Limited echo pending. -[facility] 06/06/2023: Dr. Khalil, 3.0 x 28 mm Synergy MART to mid to distal circumflex with crossing of OM but with REED-3 flow. Remaining mild plaque in mid LAD. Mild to moderate disease of RCA noted. -Recurrent angina despite 3 antianginal medications and DAPT therapy with aspirin and Plavix (intolerant of Brilinta) -EKG today is NSR with ST-T wave depression in the inferior and lateral leads with T wave inversion -Dose of Ranexa increased to 1000 mg p.o. twice daily -Nitropaste applied -Heparin drip started -Plan for [facility] today. Discussed risk versus benefits with patient he is agreeable, continue dapt with aspirin and plavix, BB and statin HTN -continue metoprolol 50 mg daily. Increase lisinopril to 20mg daily HLD -LDL goal < 55, LDL is pending, on atorvastatin 80mg daily Tobacco use -smoking cessation 12 weeks ago CKD -stage II with creatinine 1.5 and GFR 50 07/01/2023 update: Awaiting left heart catheterization for unstable angina.
[2023-07-01] MEDS: diphenhydrAMINE 50MG/ML VIAL 50 MG IV (11:24)
[2023-07-01] MEDS: NITROGLYCERIN 800MCG/8ML SYR (CATH LAB) 800 MCG IA (11:24)
[2023-07-01] MEDS: VERAPAMIL 2.5MG/ML 2ML VIAL 2.5 MG IV (11:24)
[2023-07-01] MEDS: HEPARIN 1,000 UNITS/500ML NS (CATH LAB) 3000 UNIT IV (11:25)
[2023-07-01] MEDS: LIDOCAINE 1% 10ML MDV 20 ML IJ (11:25)
[2023-07-01] MEDS: MIDAZOLAM HCL 1MG/1ML 5ML VIAL 1 MG IV (11:25)
[2023-07-01] MEDS: 0.9 % SODIUM CHLORIDE 500 ML 25 ML IV (11:25)
[2023-07-01] MEDS: FENTANYL 100MCG/2ML VIAL 50 MCG IV (12:03)
[2023-07-01] MEDS: HEPARIN 1,000 UNITS/ML 10ML VIAL (CATH LAB) 10000 UNIT IV (12:09)
[2023-07-01] MEDS: IOPAMIDOL-370 (76%);100ML BOTTLE 130 ML IV (13:03)
[2023-07-01 13:27] LABS: CATHL Activated Clotting Time 242 SEC (74-125)
[2023-07-01 13:28] LABS: CATHL Activated Clotting Time 260 SEC (74-125)
[2023-07-01] MEDS: D5W/0.45% NaCl w/20mEq KCL 1,000 ML 125 ML IV (17:33)
--- NOTE | 2023-07-01 18:17 | PC.NURSE ---
PT SITTING UP IN CHAIR WITH FAMILY. ALERT AND ORIENTED X4. EATING AND DRINKING WELL. CATH DRESSING SITES C/D/I. LUNG SOUNDS CLEAR. ABDOMEN SOFT AND TENDER. NORMAL BOWEL SOUNDS. VITAL SIGNS STABLE. AMBULATES TO THE BATHROOM. WILL CONTINUE TO MONITOR.
[2023-07-01] MEDS: ATORVASTATIN 40MG TABLET 80 MG PO (20:14)
[2023-07-02] VITALS: BP 102/51; PULSE 64; PULSE 67; RESP 16; TEMP 36.6; O2SAT 95
[2023-07-02] MEDS: D5W/0.45% NaCl w/20mEq KCL 1,000 ML 125 ML IV (02:35)
--- NOTE | 2023-07-02 03:30 | PC.NURSE ---
VITAL SIGNS STABLE. AWAKE AT THIS TIME WATCHING TV. DRESSINGS TO R RADIAL AND RIGHT GROIN C/D/I. NSR ON TELE. DENIES CP, SOA, DISCOMFORT.
[2023-07-02 04:00] VITALS: BP 112/52; PULSE 70; RESP 16; TEMP 36.4; O2SAT 98; BMI 22.8
[2023-07-02 07:05] LABS: Basophils % 0.3 % (0.1-2.0); Eosinophils # 0.4 K/mm3 (0.0-0.4); Eosinophils % 4.5 % (0.1-12.0); Hematocrit 31.6 % (42.0-52.0); Hemoglobin 10.2 g/dL (14.1-18.0); Lymphocytes # 1.6 K/mm3 (0.7-4.5); Lymphocytes % 18.6 % (10-50); Mean Corpuscular HGB Conc 32.4 g/dL (31.8-35.4); Mean Corpuscular Hemoglobin 25.8 pg (27.0-31.2); Mean Corpuscular Volume 79.4 fl (80-94); Mean Platelet Volume 8.3 fl (7.4-10.4); Monocytes # 0.5 K/mm3 (0.1-1.0); Monocytes % 5.6 % (1.7-9.3); Neutrophils # 6.1 K/mm3 (1.8-7.8); Neutrophils % 71.1 % (37.0-80.0); Platelet Count 468 K/mm3 (142-424); Red Blood Count 3.98 M/mm3 (4.60-6.20); Red Cell Distribution Width 16.7 % (11.5-17.5); White Blood Count 8.5 K/mm3 (4.8-10.8)
[2023-07-02 07:11] LABS: Chloride 103 mmol/L (98-107)
[2023-07-02 07:12] LABS: Potassium 4.5 mmoL/L (3.5-5.1); Sodium 134 mmol/L (136-145)
[2023-07-02 07:15] LABS: Anion Gap 5.5 mEq/L (5-15); Blood Urea Nitrogen 13 mg/dl (9-20); Calcium 8.4 mg/dl (8.4-10.2); Carbon Dioxide 30 mmol/L (22.0-30.0); Creatinine Clearance Estimated 45 mL/min (50-200); Estimated Glomerular Filt Rate 41 ml/min (>60); GFR (African American) 50 ML/MIN (>60); Glucose 122 mg/dl (74-100)
[2023-07-02 08:00] VITALS: BP 113/61; PULSE 64; PULSE 70; RESP 20; TEMP 36.7; O2SAT 97
[2023-07-02] MEDS: METOPROLOL SUCCINATE XL 50MG TABLET 50 MG PO (08:19)
[2023-07-02] MEDS: CLOPIDOGREL 75MG TAB 75 MG PO (08:19)
[2023-07-02] MEDS: ASPIRIN EC 81MG TABLET 81 MG PO (08:19)
[2023-07-02] MEDS: LISINOPRIL 20MG TABLET 20 MG PO (08:19)
[2023-07-02] MEDS: FERROUS SULFATE 325MG TABLET 325 MG PO (08:20)
[2023-07-02] MEDS: ISOSORBIDE MONO 30MG TAB.ER.24H 30 MG PO (08:20)
[2023-07-02] MEDS: PRAMIPEXOLE 0.125MG TABLET 0.125 MG PO (08:20)
[2023-07-02] MEDS: RANOLAZINE 500MG ER TABLET 1000 MG PO (08:20)
[2023-07-02] MEDS: CHOLECALCIFEROL 1,000 UNITS (25MCG) TABLET 50 MCG PO (08:21)
--- NOTE | 2023-07-02 08:41 | EXP.ACUTE.PN ---
Subjective *Date: 07/02/23 *Time: 08:41 Interval history: Patient feels well this morning, anxious to go home. Had multiple stents placed during left heart cath, including renal artery, see cath report. Medical Exam Vital signs and Labs for Last 24 Hours: Vital Signs Temp Pulse Pulse Resp BP Pulse Ox O2 Del Method 07/02/23 08:00 98.0 F 64 20 113/61 97 Room Air 07/02/23 06:34 Room Air 07/02/23 04:00 97.6 F 70 16 112/52 L 98 Room Air 07/02/23 04:59 Room Air 07/02/23 04:00 70 07/02/23 03:00 Room Air 07/02/23 01:00 Room Air 07/02/23 00:00 67 07/02/23 00:00 97.8 F 64 16 102/51 L 95 Room Air 07/01/23 23:00 Room Air 07/01/23 21:00 Room Air 07/01/23 20:00 97 Room Air 07/01/23 20:00 63 07/01/23 20:00 97.7 F 62 16 131/66 97 Room Air 07/01/23 19:30 97.8 F 66 18 129/62 96 Room Air 07/01/23 18:40 Room Air 07/01/23 18:30 72 19 112/80 99 Room Air 07/01/23 17:30 69 19 108/59 L 99 Room Air 07/01/23 17:25 98.1 F 81 18 130/70 94 L Room Air 07/01/23 16:00 55 L 07/01/23 17:00 Room Air 07/01/23 16:30 60 18 123/76 98 Room Air 07/01/23 15:30 53 L 16 144/79 H 99 Room Air 07/01/23 14:46 Room Air 07/01/23 15:00 54 L 16 152/74 H 99 Room Air 07/01/23 14:30 54 L 18 138/89 100 Room Air 07/01/23 14:00 52 L 18 132/78 98 Room Air 07/01/23 13:00 Room Air 07/01/23 13:30 53 L 18 127/71 97 Room Air 07/01/23 13:15 55 L 16 131/71 97 Room Air 07/01/23 13:00 54 L 20 147/79 H 98 Room Air 07/01/23 12:45 97.7 F 62 16 148/86 H 99 Room Air 07/01/23 12:25 57 L 18 140/83 100 07/01/23 12:30 56 L 19 148/80 H 98 Room Air 07/01/23 12:20 61 18 148/85 H 100 07/01/23 12:22 60 07/01/23 12:15 61 12 157/90 H 100 Room Air 07/01/23 11:00 Room Air Intake and Output 07/01/23 07/02/23 07/02/23 23:59 07:59 15:59 Intake Total 360 / 1386 1026 / 1401 375 / 1401 Output Total 700 / 700 0 / 0 Balance -340 / 686 1026 / 1401 375 / 1401 Intake: Intake, Oral Amount 360 / 600 240 / 615 375 / 615 Intake, Total IV Amount 786 / 786 D5W/0.45% NaCl w/20mEq KCL 1, 786 / 786 000 ml @ 125 mls/hr IV .Q8H [facility] Rx#:[id number] Output: Output, Urine Amount 700 / 700 0 / 0 Other: Number of Voids 1 Number of Unmeasured Voids 1 1 Weight 150 lb 14.4 oz Patient Weight 07/02/23 23:59 Weight 150 lb 14.4 oz Laboratory Results - last 24 hr 07/01/23 12:13: Activated Clotting Time 260 H* 07/01/23 12:45: Activated Clotting Time 242 H* 07/02/23 06:45: WBC 8.5, RBC 3.98 L, Hgb 10.2 L, Hct 31.6 L, MCV 79.4 L, MCH 25.8 L, MCHC 32.4, RDW 16.7, Plt Count 468 H, MPV 8.3, Neut % (Auto) 71.1, Lymph % (Auto) 18.6, [place] % (Auto) 5.6, Eos % (Auto) 4.5, Baso % (Auto) 0.3, Neut # (Auto) 6.1, Lymph # (Auto) 1.6, [place] # (Auto) 0.5, Eos # (Auto) 0.4, Baso # (Auto) 0.0, Sodium 134 L, Potassium 4.5, Chloride 103, Carbon Dioxide 30, Anion Gap 5.5, BUN 13 D, Creatinine 1.70 H, Estimated Creat Clear 45, Estimated GFR 41 L, Est GFR ( Amer) 50 L, Glucose 122 H, Calcium 8.4 I & O for Labs for Last 24 Hours: Intake & Output 06/29/23 06/30/23 07/01/23 07/02/23 23:59 23:59 23:59 23:59 Intake Total 335 / 335 360 / 1386 1401 / 1401 Output Total 700 / 700 0 / 0 Balance 335 / 335 -340 / 686 1401 / 1401 Weight 153 lb 0.013 oz 150 lb 4.8 oz 150 lb 14.4 oz Constitutional: Present no acute distress Respiratory: Present normal respiratory effort Cardiac: Present Reg Rate and Rhythm GI: Present normal bowel sounds; Absent tenderness Extremities: Present normal inspection and full ROM Skin: Present intact; Absent erythema Neuro: Present Grossly Intact and moves all extremities Assessment and Plan *Assessment and plan (1) Chest pain: Status: Acute Category: Medical Code(s): R07.9 - Chest pain, unspecified (2) CAD (coronary artery disease): Status: Chronic Qualifiers: Coronary Disease-Associated Artery/Lesion type: [place] artery [place] vs. transplanted heart: [place] heart Associated angina: with other forms of angina Qualified Code(s): I25.118 - Atherosclerotic heart disease of [place] coronary artery with other forms of angina pectoris Category: Medical Code(s): I25.10 - Atherosclerotic heart disease of [place] coronary artery without angina pectoris (3) HLD (hyperlipidemia): Status: Chronic Qualifiers: Hyperlipidemia type: other hyperlipidemia Qualified Code(s): E78.4 - Other hyperlipidemia Category: Medical Code(s): E78.5 - Hyperlipidemia, unspecified (4) HHD (hypertensive heart disease): Status: Chronic Qualifiers: Heart failure presence: without heart failure Qualified Code(s): I11.9 - Hypertensive heart disease without heart failure Category: Medical Code(s): I11.9 - Hypertensive heart disease without heart failure (5) COPD (chronic obstructive pulmonary disease): Status: Chronic Qualifiers: COPD type: emphysema Emphysema type: other Qualified Code(s): J43.8 - Other emphysema Category: Medical Code(s): J44.9 - Chronic obstructive pulmonary disease, unspecified (6) SMOOTH (obstructive sleep apnea): Status: Chronic Category: Medical Code(s): G47.33 - Obstructive sleep apnea (adult) (pediatric) (7) Tobacco user: Status: Chronic Category: Social Hx Code(s): Z72.0 - Tobacco use (8) History of coronary artery stent placement: Status: Acute Category: Surgical Code(s): Z95.5 - Presence of coronary angioplasty implant and graft (9) Fatigue: Status: Chronic Qualifiers: Fatigue type: chronic, unspecified Qualified Code(s): R53.82 - Chronic fatigue, unspecified Category: Medical Code(s): R53.83 - Other fatigue (10) Stage 3a chronic kidney disease (CKD): Status: Acute Category: Medical Code(s): N18.31 - Chronic kidney disease, stage 3a (11) MARICEL (acute kidney injury): Status: Acute Category: Medical Code(s): N17.9 - Acute kidney failure, unspecified (12) Renal artery stenosis: Status: Acute Category: Medical Code(s): I70.1 - Atherosclerosis of renal artery (13) HTN (hypertension): Status: Acute Category: Medical Code(s): I10 - Essential (primary) hypertension (14) Anemia: Status: Acute Category: Medical Code(s): D64.9 - Anemia, unspecified Plan OK for discharge home today, plan to recheck labs in the next 2 weeks. Office f/u with cardiology and Dr. Patton.
--- NOTE | 2023-07-03 23:14 | EXP.DC.SUM ---
General Admission date:: 06/30/23 Discharge date: 07/02/23 HPI HPI HPI: This is a 57-year-old white male with past medical history of coronary artery disease with recent stenting to mid to distal circumflex with crossing of OM in May 2023, remaining mild plaque in mid LAD and mild to moderate disease in RCA, uncontrolled hypertension, hyperlipidemia, former tobacco user and chronic kidney disease presented to cardiology clinic today for a second opinion regarding chest pain. Patient reports he had a left heart cath in May by Dr. Dorsey at [facility] resulting in stenting to mid to distal circumflex. Patient reports he has had continued chest pain since then both with activity and at rest. Patient followed up with Dr. Romero and was prescribed Ranexa without relief of symptoms. Patient decided to get a second opinion from [facility] cardiology today. Patient describes progressive and worsening midsternal chest pain without radiation worse with activity and present at rest most days. Of note patient's systolic blood pressure was 140 in the office. Patient had an echo in May 2023 at [facility] which showed a normal ejection fraction and no significant valve disease. Due to patient experiencing continued progressive and worsening chest pain while on 3 antianginals patient will be admitted for unstable angina and will undergo left heart catheterization for further evaluation. Office EKG shows sinus rhythm with ST-T depression in the inferior and lateral leads with T wave inversion noted. Labs are pending. (above as per cardiology) Patient states he had horrible chest pain yesterday. It has eased some today. Hospital Course Hospital Course Hospital Course: The patient was admitted and cardiology was going to proceed with a left heart cath the next morning. His dose of Ranexa was increased to 1000 mg twice a day and Nitropaste was applied. A heparin drip was also started. The patient had severe to critical two-vessel coronary artery disease involving the circumflex artery and right coronary artery. 1 stent was placed. There was successful angioplasty of a jailed first obtuse marginal artery. There was successful reconstruction of the proximal mid and distal dominant right coronary severe disease with 2 stents. The patient had a normal ejection fraction and normal left ventricular and systolic pressure. There was also critical left renal artery stenosis and a stent was placed in the left renal artery. The patient was kept overnight for copious IV fluids. He was to be continued on dual antiplatelet therapy. His creatinine was 1.7 on 07/02/2023 and he was stable to be discharged home. Repeat labs will be rechecked in 2 weeks and he will follow-up with both cardiology and Dr. Patton. Exam Data for Last 24 hours Vital signs and Labs for Last 24 Hours: Temp Pulse Resp BP Pulse Ox O2 Del Method 98.0 F 64 20 113/61 97 Room Air 07/02/23 08:00 07/02/23 08:00 07/02/23 08:00 07/02/23 08:00 07/02/23 08:00 07/02/23 09:00 I & O for Last 24 hours: Intake & Output 07/01/23 07/02/23 07/03/23 07/04/23 11:59 11:59 11:59 11:59 Intake Total 335 / 335 1761 / 1761 Output Total 700 / 700 Balance 335 / 335 1061 / 1061 Weight 150 lb 4.8 oz 150 lb 14.4 oz Narrative: Constitutional Constitutional: no acute distress *Routine HEENT Exam Head: Present normocephalic and atraumatic Eye: Present EOMI and PERRL ENT: Present mucous membranes moist *Routine Neck Exam Neck: Present supple and full ROM *Routine Respiratory Exam Respiratory: Present CTA bilaterally *Routine Cardiovascular Exam Cardiovascular: Present RRR *Routine Abdominal Exam Abdominal: Present soft and normoactive bowel sounds; Absent tenderness *Routine Rectal Exam Rectal:: deferred *Routine Genitalia Exam Genitalia:: deferred *Routine Extremities Exam Extremities: Absent cyanosis, clubbing or edema *Routine Skin Exam Skin: Present intact; Absent erythema *Routine Neurological Exam Neurological: Present alert and oriented X3 DS: Diagnosis Discharge Diagnosis (1) Chest pain: Status: Acute Code(s): R07.9 - Chest pain, unspecified (2) CAD (coronary artery disease): Status: Chronic Code(s): I25.10 - Atherosclerotic heart disease of [place] coronary artery without angina pectoris Qualifiers: Coronary Disease-Associated Artery/Lesion type: [place] artery [place] vs. transplanted heart: [place] heart Associated angina: with other forms of angina Qualified Code(s): I25.118 - Atherosclerotic heart disease of [place] coronary artery with other forms of angina pectoris (3) HLD (hyperlipidemia): Status: Chronic Code(s): E78.5 - Hyperlipidemia, unspecified Qualifiers: Hyperlipidemia type: other hyperlipidemia Qualified Code(s): E78.4 - Other hyperlipidemia (4) HHD (hypertensive heart disease): Status: Chronic Code(s): I11.9 - Hypertensive heart disease without heart failure Qualifiers: Heart failure presence: without heart failure Qualified Code(s): I11.9 - Hypertensive heart disease without heart failure (5) COPD (chronic obstructive pulmonary disease): Status: Chronic Code(s): J44.9 - Chronic obstructive pulmonary disease, unspecified Qualifiers: COPD type: emphysema Emphysema type: other Qualified Code(s): J43.8 - Other emphysema (6) SMOOTH (obstructive sleep apnea): Status: Chronic Code(s): G47.33 - Obstructive sleep apnea (adult) (pediatric) (7) Tobacco user: Status: Chronic Code(s): Z72.0 - Tobacco use (8) History of coronary artery stent placement: Status: Acute Code(s): Z95.5 - Presence of coronary angioplasty implant and graft (9) Fatigue: Status: Chronic Code(s): R53.83 - Other fatigue Qualifiers: Fatigue type: chronic, unspecified Qualified Code(s): R53.82 - Chronic fatigue, unspecified (10) Stage 3a chronic kidney disease (CKD): Status: Acute Code(s): N18.31 - Chronic kidney disease, stage 3a (11) MARICEL (acute kidney injury): Status: Acute Code(s): N17.9 - Acute kidney failure, unspecified (12) Renal artery stenosis: Status: Acute Code(s): I70.1 - Atherosclerosis of renal artery (13) HTN (hypertension): Status: Acute Code(s): I10 - Essential (primary) hypertension (14) Anemia: Status: Acute Code(s): D64.9 - Anemia, unspecified Meds Home Medications and Allergies Home Medications Medication Instructions Recorded Confirmed Type aspirin 81 mg tablet,delayed 81 mg PO DAILY Heart Health 12/28/17 06/30/23 History release clopidogrel 75 mg tablet 75 mg PO DAILY Platelet Inhibitor 01/02/21 06/30/23 History metoprolol succinate 50 mg 50 mg PO DAILY High Blood Pressure 01/02/21 06/30/23 History tablet,extended release 24 hr atorvastatin 80 mg tablet 80 mg PO HS Cholesterol 06/30/23 06/30/23 History cholecalciferol (vitamin D3) 50 50 mcg PO DAILY Supplement 06/30/23 06/30/23 History mcg (2,000 unit) capsule ferrous sulfate 325 mg (65 mg 325 mg PO DAILY 06/30/23 06/30/23 History iron) tablet,delayed release isosorbide mononitrate 30 mg 30 mg PO DAILY High Blood Pressure 06/30/23 06/30/23 History tablet,extended release 24 hr lisinopril 10 mg tablet 10 mg PO DAILY High Blood Pressure 06/30/23 06/30/23 History nitroglycerin 0.4 mg sublingual 0.4 mg sublingual Q5MINP PRN Chest 06/30/23 06/30/23 History tablet Pain omeprazole 40 mg capsule,delayed 40 mg PO DAILY Acid Reflux 06/30/23 06/30/23 History release pramipexole 0.125 mg tablet 0.125 mg PO DAILY 06/30/23 06/30/23 History ranolazine 500 mg tablet,extended 500 mg PO BID Angina 06/30/23 06/30/23 History release,12 hr New Prescriptions to Start Prescriptions: Allergies Allergy/AdvReac Type Severity Reaction Status Date / Time No Known Allergies Allergy Verified 06/30/23 15:57 Discharge Plan Disposition Patient Disposition: Home, Self-Care Condition: Fair Discharge Order Discharge Orders: Discharge Order (Routine); Ordered 07/02/23 Ordered By: Shawn Mcgee Follow up Plan Follow up with: Dorota Patton MD [Staff Physician] - 07/14/23 1:15 pm Александр Barillas MD [Staff Physician] - 07/07/23 1:45 pm Prescriptions/Medication Reconciliation: Continued clopidogrel 75 mg tablet 75 mg PO DAILY metoprolol succinate 50 mg tablet extended release 24 hr 50 mg PO DAILY atorvastatin 80 mg tablet 80 mg PO HS isosorbide mononitrate 30 mg tablet extended release 24 hr 30 mg PO DAILY omeprazole 40 mg capsule,delayed release(DR/EC) 40 mg PO DAILY Patient Comments: TAKE 1 CAPSULE BY MOUTH 30 MINUTES BEFORE MORNING MEAL ONCE DAILY lisinopril 10 mg tablet 10 mg PO DAILY Patient Comments: TAKE 1 TABLET BY MOUTH ONCE DAILY pramipexole 0.125 mg tablet 0.125 mg PO DAILY ferrous sulfate 325 mg (65 mg iron) tablet,delayed release (DR/EC) 325 mg PO DAILY Patient Comments: TAKE 1 TABLET BY MOUTH ONCE DAILY FOR 90 DAYS ranolazine 500 mg tablet extended release 12 hr 500 mg PO BID Patient Comments: TAKE 1 TABLET BY MOUTH TWICE DAILY cholecalciferol (vitamin D3) 50 mcg (2,000 unit) capsule 50 mcg PO DAILY aspirin 81 MG tablet,delayed release (DR/EC) 81 mg PO DAILY nitroglycerin 0.4 mg tablet, sublingual 0.4 mg sublingual Q5MINP PRN (Reason: Chest Pain) Other Ambulatory Orders: Basic Metabolic Panel (Routine) Timeframe: 20230707 Facility: [facility] - Location: Laboratory Ordered By: Александр Barillas Complete Blood Count Auto Diff (Routine) Timeframe: [id number] Facility: [facility] - Location: Laboratory Ordered By: Александр Barillas Problem Reconciliation Problems Reviewed?: Yes Patient Discharge Instructions ACTIVITY: Limited activity DIET: continue same diet Patient Instructions: Cardiac Catheterization Providers Primary Care Provider: Afshin Ann Admit Provider: Александр Barillas Attending Provider: Shawn Mcgee
== END 2023-07-02 10:21 | disposition home or self-care (01) | DRG 322 ==
PROVIDERS: Nurse Practitioner; Physician Assistant; Admitting Provider Internal Medicine; PCP Internal Medicine Adolescent Medicine; Visit Provider Family Medicine
PROC: 027136Z Dilation of Coronary Artery, Two Arteries with Three Drug-eluting Intraluminal Devices, Percutaneous Approach (ICD-10-PCS; principal; 2023-07-01 11:00)
DX: I25.110 Atherosclerotic heart disease of native coronary artery with unstable angina pectoris (principal); N17.9 Acute kidney failure, unspecified; Z95.5 Presence of coronary angioplasty implant and graft; E78.5 Hyperlipidemia, unspecified; G47.33 Obstructive sleep apnea (adult) (pediatric); Z87.891 Personal history of nicotine dependence; J43.9 Emphysema, unspecified; N18.31 Chronic kidney disease, stage 3a; I50.9 Heart failure, unspecified; I12.9 Hypertensive chronic kidney disease with stage 1 through stage 4 chronic kidney disease, or unspecified chronic kidney disease; D63.1 Anemia in chronic kidney disease
CPT/HCPCS: 36415; 80048; 80053; 80061; 83036; 84484; 85025; 85347; 85730; 92921; 92928; 92978; 92979; 93308; 93458; 99152; 99153; C1725; C1760; C1769; C1874; C1876; C1887; C1894; C9600; J1644; Q9967

== ENCOUNTER 2023-07-06 11:54 | Outpatient (CLI) | payer BC, SELFPAY ==
[2023-07-06 12:23] LABS: Basophils # 0.1 K/mm3 (0-0.2); Basophils % 0.6 % (0.1-2.0); Eosinophils # 0.5 K/mm3 (0.0-0.4); Eosinophils % 5.8 % (0.1-12.0); Hemoglobin 11.1 g/dL (14.1-18.0); Lymphocytes # 1.9 K/mm3 (0.7-4.5); Lymphocytes % 24.4 % (10-50); Mean Corpuscular HGB Conc 30.9 g/dL (31.8-35.4); Mean Corpuscular Hemoglobin 25.3 pg (27.0-31.2); Mean Corpuscular Volume 81.8 fl (80-94); Mean Platelet Volume 8.2 fl (7.4-10.4); Monocytes # 0.5 K/mm3 (0.1-1.0); Monocytes % 5.7 % (1.7-9.3); Neutrophils % 63.6 % (37.0-80.0); Platelet Count 501 K/mm3 (142-424); Red Cell Distribution Width 16.3 % (11.5-17.5); White Blood Count 7.9 K/mm3 (4.8-10.8)
[2023-07-06 13:24] LABS: Chloride 99 mmol/L (98-107); Potassium 4.3 mmoL/L (3.5-5.1); Sodium 133 mmol/L (136-145)
[2023-07-06 13:27] LABS: Anion Gap 10.3 mEq/L (5-15); Blood Urea Nitrogen 16 mg/dl (9-20); Calcium 9.4 mg/dl (8.4-10.2); Carbon Dioxide 28 mmol/L (22.0-30.0); Estimated Glomerular Filt Rate 36 ml/min (>60); GFR (African American) 44 ML/MIN (>60); Glucose 97 mg/dl (74-100)
[2023-07-11 11:24] LABS: Anion Gap 12.5 mEq/L (5-15); Blood Urea Nitrogen 18 mg/dl (9-20); Calcium 9.5 mg/dl (8.4-10.2); Carbon Dioxide 27 mmol/L (22.0-30.0); Chloride 100 mmol/L (98-107); Estimated Glomerular Filt Rate 36 ml/min (>60); GFR (African American) 44 ML/MIN (>60); Glucose 99 mg/dl (74-100); Phosphorous 4.4 mg/dl (2.5-4.5); Potassium 4.5 mmoL/L (3.5-5.1); Sodium 135 mmol/L (136-145); Uric Acid 5.9 mg/dl (3.5-8.5)
[2023-07-11 11:41] LABS: 25-OH Vitamin D, Total 46.2 ng/mL (30-100)
== END 2023-07-06 23:59 ==
LOC: LAB 11:55
PROVIDERS: Internal Medicine; PCP Family Medicine; Visit Provider Internal Medicine
DX: Z95.5 Presence of coronary angioplasty implant and graft (principal)
CPT/HCPCS: 36415; 80048; 80069; 82306; 84550; 85025

== ENCOUNTER 2023-08-10 10:24 | Outpatient (CLI) | payer BC, SELFPAY ==
[2023-08-10 10:46] LABS: Basophils # 0.1 K/mm3 (0-0.2); Basophils % 1.7 % (0.1-2.0); Eosinophils # 0.6 K/mm3 (0.0-0.4); Eosinophils % 8.2 % (0.1-12.0); Hematocrit 36.1 % (42.0-52.0); Hemoglobin 11.1 g/dL (14.1-18.0); Lymphocytes # 1.6 K/mm3 (0.7-4.5); Lymphocytes % 23.9 % (10-50); Mean Corpuscular HGB Conc 30.9 g/dL (31.8-35.4); Mean Corpuscular Hemoglobin 25.7 pg (27.0-31.2); Mean Corpuscular Volume 83.3 fl (80-94); Mean Platelet Volume 7.9 fl (7.4-10.4); Monocytes # 0.5 K/mm3 (0.1-1.0); Monocytes % 7.4 % (1.7-9.3); Neutrophils % 58.9 % (37.0-80.0); Platelet Count 505 K/mm3 (142-424); Red Blood Count 4.33 M/mm3 (4.60-6.20); Red Cell Distribution Width 15.8 % (11.5-17.5); White Blood Count 6.8 K/mm3 (4.8-10.8)
[2023-08-10 11:05] LABS: Chloride 105 mmol/L (98-107); Potassium 4.2 mmoL/L (3.5-5.1); Sodium 139 mmol/L (136-145)
[2023-08-10 11:08] LABS: Alanine Aminotransferase 18 U/L (12-78); Albumin/Globulin Ratio 1.6 (1.1-1.8); Alkaline Phosphatase 58 U/L (38-126); Anion Gap 7.2 mEq/L (5-15); Aspartate Amino Transferase 27 U/L (17-59); Bilirubin,Total 0.3 mg/dl (0.2-1.3); Blood Urea Nitrogen 10 mg/dl (9-20); Calcium 9.3 mg/dl (8.4-10.2); Carbon Dioxide 31 mmol/L (22.0-30.0); Chol/HDL Ratio 3.4 (1-3.5); Cholesterol 120 mg/dl (140-200); Estimated Glomerular Filt Rate 48 ml/min (>60); GFR (African American) 58 ML/MIN (>60); Globulin 2.5 g/dL (1.3-3.2); Glucose 90 mg/dl (74-100); HDL Cholesterol 35 mg/dl (40-60); Total Protein,Serum 6.5 g/dl (6.3-8.2); Triglycerides 114 mg/dl (30-150); VLDL Cholesterol 23 mg/dL (0-40)
[2023-08-10 11:35] LABS: Troponin I < 0.01 ng/ml (0.00-0.034)
== END 2023-08-10 23:59 ==
LOC: LAB 10:24
PROVIDERS: PCP Physician Assistant; Visit Provider Physician Assistant
DX: I25.10 Atherosclerotic heart disease of native coronary artery without angina pectoris (principal); R07.9 Chest pain, unspecified; Z95.5 Presence of coronary angioplasty implant and graft; Z87.891 Personal history of nicotine dependence
CPT/HCPCS: 36415; 80053; 80061; 84484; 85025

== ENCOUNTER 2023-08-12 11:58 | Day surgery (SDC) | payer BC, SELFPAY ==
[2023-08-12] VITALS (17 sets, daily range): BP systolic 116–163; BP diastolic 69–88; PULSE 58–95; RESP 15–19; TEMP 36.6; O2SAT 98–100; BMI 23.4
--- NOTE | 2023-08-12 07:08 | IR_ITS ---
APPROVED REPORT Patient Location: Outpatient Multicultural Manager: SUKHDEV Dumont RT (R) PROCEDURES Left heart catheterization Left ventriculogram Selective coronary angiogram Bilateral selective renal angiogram INDICATION Known multivessel coronary disease, Renal insufficiency with history renal artery stenting Informed consent was obtained prior to the procedure. COMPLICATIONS NONE Estimated Blood Loss: LESS THAN 10 ML TECHNIQUE One percent lidocaine was used to anesthetize the right groin. The right femoral artery was accessed via the Seldinger technique. A 4-Bengali sheath was placed in the right femoral artery. The JL-4 and JR-4 catheter was also used to perform left heart catheterization left ventriculogram and selective coronary angiogram. The JR4 catheter used to perform bilateral selective renal angiography at the end of the procedure the patient was transferred to the post-op holding area in stable condition for arterial sheath removal.. ANGIOGRAPHIC RESULTS The left main artery Normal The left anterior descending artery He has mild proximal 10% luminal irregularities with mid vessel 10 to 20% luminal irregularities The circumflex artery Is nondominant and has stents in the proximal to mid segment which are widely patent free of in-stent restenosis with excellent proximal distal transitioning. There is a small 1 mm in diameter first obtuse marginal artery which is jailed within the stent with wide patency and REED-3 flow. The right coronary artery Is dominant and has a proximal 10 to 20% stenosis immediately proximal to a widely patent stent which extends from the proximal portion to the distal segment. Distally there is excellent transitioning. The 1 mm RV marginal was jailed within the stent however has REED-3 flow with wide patency and no angiographic obstruction The RODRIGUEZ ventriculogram reveals Normal 60% The left ventricular end-diastolic pressure Less than 10 mmHg Right renal artery widely patent Stent in the left renal artery has minimal in-stent restenosis with wide patency IMPRESSION Widely patent coronary arteries as described above with stent jailing which is not causing angiographic stenosis with both first obtuse marginal artery and RV marginal branches being widely patent with REED-3 flow Normal ejection fraction Normal left ventricular end-diastolic pressure Patent renal arteries as described above PLAN 1. Patient is almost certainly experiencing endothelial dysfunction and requires maximizing antianginal medications with absolute avoidance of all tobacco products 2. There is nothing which requires percutaneous revascularization at this time as all coronary arteries are widely patent with REED-3 flow Electronically signed by : Александр Barillas MD 08/12/2023 13:03:43
[2023-08-12] MEDS: HEPARIN 1,000 UNITS/500ML NS (CATH LAB) 3000 UNIT IV (12:40)
[2023-08-12] MEDS: LIDOCAINE 1% 10ML MDV 20 ML IJ (12:41)
[2023-08-12] MEDS: 0.9 % SODIUM CHLORIDE 500 ML 25 ML IV (12:41)
[2023-08-12] MEDS: diphenhydrAMINE 50MG/ML VIAL 50 MG IV (12:41)
[2023-08-12 12:45] LABS: Basophils # 0.1 K/mm3 (0-0.2); Basophils % 1.5 % (0.1-2.0); Chloride 104 mmol/L (98-107); Eosinophils # 0.6 K/mm3 (0.0-0.4); Eosinophils % 8.9 % (0.1-12.0); Hematocrit 37.3 % (42.0-52.0); Hemoglobin 11.6 g/dL (14.1-18.0); Lymphocytes # 1.9 K/mm3 (0.7-4.5); Lymphocytes % 27.9 % (10-50); Mean Corpuscular Hemoglobin 25.5 pg (27.0-31.2); Mean Platelet Volume 7.8 fl (7.4-10.4); Monocytes # 0.4 K/mm3 (0.1-1.0); Monocytes % 6.2 % (1.7-9.3); Neutrophils # 3.8 K/mm3 (1.8-7.8); Neutrophils % 55.5 % (37.0-80.0); Platelet Count 504 K/mm3 (142-424); Red Blood Count 4.55 M/mm3 (4.60-6.20); White Blood Count 6.8 K/mm3 (4.8-10.8)
[2023-08-12 12:46] LABS: Potassium 4.1 mmoL/L (3.5-5.1); Sodium 139 mmol/L (136-145)
[2023-08-12 12:48] LABS: Blood Urea Nitrogen 13 mg/dl (9-20); Creatinine Clearance Estimated 44 mL/min (50-200); Estimated Glomerular Filt Rate 39 ml/min (>60); GFR (African American) 47 ML/MIN (>60)
[2023-08-12 12:49] LABS: Anion Gap 9.1 mEq/L (5-15); Calcium 9.2 mg/dl (8.4-10.2); Carbon Dioxide 30 mmol/L (22.0-30.0); Glucose 101 mg/dl (74-100)
[2023-08-12] MEDS: MIDAZOLAM HCL 1MG/1ML 5ML VIAL 1 MG IV (12:52)
[2023-08-12] MEDS: FENTANYL 100MCG/2ML VIAL 25 MCG IV (12:52)
[2023-08-12] MEDS: IOPAMIDOL-370 (76%);100ML BOTTLE 50 ML IV (13:39)
== END 2023-08-12 16:17 | disposition home or self-care (01) ==
PROVIDERS: PCP Physician Assistant; Visit Provider Internal Medicine
DX: I70.1 Atherosclerosis of renal artery (principal); Z95.5 Presence of coronary angioplasty implant and graft; I25.110 Atherosclerotic heart disease of native coronary artery with unstable angina pectoris; I12.9 Hypertensive chronic kidney disease with stage 1 through stage 4 chronic kidney disease, or unspecified chronic kidney disease; R53.82 Chronic fatigue, unspecified; G47.33 Obstructive sleep apnea (adult) (pediatric); Q67.6 Pectus excavatum; N18.2 Chronic kidney disease, stage 2 (mild); Z79.899 Other long term (current) drug therapy; Z79.02 Long term (current) use of antithrombotics/antiplatelets; Z95.828 Presence of other vascular implants and grafts; Z87.891 Personal history of nicotine dependence; E78.5 Hyperlipidemia, unspecified
CPT/HCPCS: 36252; 80048; 85025; 93458; 99152; C1725; C1769; J1644; Q9967

== ENCOUNTER 2023-08-18 11:49 | Outpatient (CLI) | payer BC, SELFPAY ==
[2023-08-18 12:15] LABS: Basophils # 0.1 K/mm3 (0-0.2); Basophils % 0.9 % (0.1-2.0); Eosinophils # 0.7 K/mm3 (0.0-0.4); Eosinophils % 7.6 % (0.1-12.0); Hematocrit 34.4 % (42.0-52.0); Hemoglobin 10.7 g/dL (14.1-18.0); Lymphocytes # 1.5 K/mm3 (0.7-4.5); Lymphocytes % 16.8 % (10-50); Mean Corpuscular Volume 83.8 fl (80-94); Mean Platelet Volume 7.1 fl (7.4-10.4); Monocytes # 0.5 K/mm3 (0.1-1.0); Neutrophils % 68.7 % (37.0-80.0); Platelet Count 483 K/mm3 (142-424); Red Blood Count 4.11 M/mm3 (4.60-6.20); Red Cell Distribution Width 15.6 % (11.5-17.5); White Blood Count 8.8 K/mm3 (4.8-10.8)
[2023-08-18 13:01] LABS: Alanine Aminotransferase 15 U/L (12-78); Albumin Level 4.1 g/dl (3.5-5.0); Albumin/Globulin Ratio 1.6 (1.1-1.8); Alkaline Phosphatase 60 U/L (38-126); Anion Gap 10.3 mEq/L (5-15); Aspartate Amino Transferase 23 U/L (17-59); Bilirubin,Total 0.4 mg/dl (0.2-1.3); Blood Urea Nitrogen 15 mg/dl (9-20); Calcium 9.4 mg/dl (8.4-10.2); Carbon Dioxide 29 mmol/L (22.0-30.0); Chloride 100 mmol/L (98-107); Estimated Glomerular Filt Rate 39 ml/min (>60); GFR (African American) 47 ML/MIN (>60); Globulin 2.5 g/dL (1.3-3.2); Glucose 100 mg/dl (74-100); Potassium 4.3 mmoL/L (3.5-5.1); Sodium 135 mmol/L (136-145); Total Protein,Serum 6.6 g/dl (6.3-8.2)
[2023-08-18 13:19] LABS: 25-OH Vitamin D, Total 74.3 ng/mL (30-100)
[2023-08-18 13:50] LABS: Vitamin B12 388 pg/mL (239-931)
[2023-08-18 15:49] LABS: Iron 71 ug/dL (49-181)
== END 2023-08-18 23:59 ==
LOC: LAB 11:50
PROVIDERS: PCP Family Medicine; Visit Provider Physician Assistant
DX: E61.1 Iron deficiency (principal); E53.8 Deficiency of other specified B group vitamins; N18.31 Chronic kidney disease, stage 3a; E55.9 Vitamin D deficiency, unspecified
CPT/HCPCS: 36415; 80053; 82306; 82607; 82728; 83540; 85025

== ENCOUNTER 2024-01-09 15:12 | Outpatient (CLI) | payer BC, SELFPAY ==
[2024-01-09 15:42] LABS: Basophils # 0.1 K/mm3 (0-0.2); Basophils % 1.1 % (0.1-2.0); Eosinophils # 0.6 K/mm3 (0.0-0.4); Eosinophils % 6.8 % (0.1-12.0); Hematocrit 37.2 % (42.0-52.0); Hemoglobin 11.6 g/dL (14.1-18.0); Lymphocytes # 1.8 K/mm3 (0.7-4.5); Lymphocytes % 21.7 % (10-50); Mean Corpuscular HGB Conc 31.2 g/dL (31.8-35.4); Mean Corpuscular Hemoglobin 27.5 pg (27.0-31.2); Mean Corpuscular Volume 88.3 fl (80-94); Monocytes # 0.6 K/mm3 (0.1-1.0); Monocytes % 6.6 % (1.7-9.3); Neutrophils # 5.4 K/mm3 (1.8-7.8); Neutrophils % 63.8 % (37.0-80.0); Platelet Count 477 K/mm3 (142-424); Red Blood Count 4.21 M/mm3 (4.60-6.20); Red Cell Distribution Width 16.1 % (11.5-17.5); White Blood Count 8.5 K/mm3 (4.8-10.8)
[2024-01-09 16:04] LABS: Albumin Level 3.6 g/dl (3.5-5.0); Chloride 101 mmol/L (98-107); Sodium 133 mmol/L (136-145)
[2024-01-09 16:05] LABS: Potassium 3.8 mmoL/L (3.5-5.1)
[2024-01-09 16:07] LABS: Alanine Aminotransferase 9 U/L (12-78); Albumin/Globulin Ratio 1.4 (1.1-1.8); Alkaline Phosphatase 47 U/L (38-126); Anion Gap 6.8 mEq/L (5-15); Aspartate Amino Transferase 15 U/L (17-59); Bilirubin,Total 0.3 mg/dl (0.2-1.3); Blood Urea Nitrogen 17 mg/dl (9-20); Carbon Dioxide 29 mmol/L (22.0-30.0); Estimated Glomerular Filt Rate 31 ml/min (>60); GFR (African American) 37 ML/MIN (>60); Globulin 2.5 g/dL (1.3-3.2); Iron 37 ug/dL (49-181); Total Protein,Serum 6.1 g/dl (6.3-8.2)
[2024-01-09 16:08] LABS: Calcium 8.6 mg/dl (8.4-10.2); Glucose 77 mg/dl (74-100)
[2024-01-09 16:43] LABS: Ferritin 10.1 ng/ml (17.9-464)
== END 2024-01-09 23:59 | disposition home or self-care (01) ==
LOC: LAB 15:13
PROVIDERS: PCP Family Medicine; Visit Provider Physician Assistant
DX: E61.1 Iron deficiency (principal); I10 Essential (primary) hypertension
CPT/HCPCS: 36415; 80053; 82728; 83540; 85025

== ENCOUNTER 2024-01-26 16:07 | Outpatient (CLI) | payer BC, SELFPAY ==
[2024-01-26 16:57] LABS: Basophils # 0.1 K/mm3 (0-0.2); Basophils % 1.8 % (0.1-2.0); Eosinophils # 0.6 K/mm3 (0.0-0.4); Eosinophils % 9.7 % (0.1-12.0); Hematocrit 36.7 % (42.0-52.0); Hemoglobin 11.4 g/dL (14.1-18.0); Lymphocytes # 1.7 K/mm3 (0.7-4.5); Lymphocytes % 30.5 % (10-50); Mean Corpuscular Hemoglobin 27.4 pg (27.0-31.2); Mean Corpuscular Volume 88.4 fl (80-94); Mean Platelet Volume 8.4 fl (7.4-10.4); Monocytes # 0.5 K/mm3 (0.1-1.0); Monocytes % 8.2 % (1.7-9.3); Neutrophils # 2.8 K/mm3 (1.8-7.8); Neutrophils % 49.7 % (37.0-80.0); Platelet Count 469 K/mm3 (142-424); Red Blood Count 4.15 M/mm3 (4.60-6.20); Red Cell Distribution Width 15.2 % (11.5-17.5); White Blood Count 5.7 K/mm3 (4.8-10.8)
[2024-01-26 18:43] LABS: Folate 3.84 ng/mL; Vitamin B12 > 1000 pg/mL (239-931)
[2024-01-26 18:44] LABS: Iron 46 ug/dL (49-181)
[2024-01-26 18:53] LABS: Total Iron Binding Capacity 336 ug/dL (261-462)
[2024-01-26 19:20] LABS: Ferritin 10.5 ng/ml (17.9-464)
== END 2024-01-26 23:59 | disposition home or self-care (01) ==
LOC: LAB 16:10
PROVIDERS: PCP Family Medicine; Visit Provider Internal Medicine Medical Oncology
DX: D64.9 Anemia, unspecified (principal)
CPT/HCPCS: 36415; 82607; 82728; 82746; 83540; 83550; 85025

== ENCOUNTER 2024-02-06 15:10 | Outpatient (CLI) | payer BC, SELFPAY ==
[2024-02-06 15:35] VITALS: BP 135/79; PULSE 66; RESP 18; TEMP 36.7; O2SAT 99
[2024-02-06] MEDS: SODIUM CHLORIDE 0.9% 50ML BAG 50 ML IV (15:35)
[2024-02-06] MEDS: IRON SUCROSE COMPLEX 200 MG in 0.9 % SODIUM CHLORIDE 100 ML 220 MG IV (15:35)
[2024-02-06 16:11] VITALS: BP 129/84; PULSE 72; RESP 18; O2SAT 98
== END 2024-02-06 16:11 | disposition home or self-care (01) ==
LOC: INF 15:11
PROVIDERS: PCP Physician Assistant; Visit Provider Internal Medicine Medical Oncology
DX: D50.9 Iron deficiency anemia, unspecified (principal)
CPT/HCPCS: 96365; J1756

== ENCOUNTER 2024-02-13 15:20 | Outpatient (CLI) | payer BC, SELFPAY ==
[2024-02-13] MEDS: IRON SUCROSE COMPLEX 200 MG in 0.9 % SODIUM CHLORIDE 100 ML 220 MG IV (15:45)
[2024-02-13] MEDS: SODIUM CHLORIDE 0.9% 50ML BAG 50 ML IV (15:45)
[2024-02-13 15:46] VITALS: BP 134/72; PULSE 65; RESP 18; O2SAT 97
[2024-02-13 16:24] VITALS: BP 130/86; PULSE 74; RESP 18; O2SAT 97
== END 2024-02-13 16:24 | disposition home or self-care (01) ==
LOC: INF 15:21
PROVIDERS: PCP Family Medicine; Visit Provider Internal Medicine Medical Oncology
DX: D50.9 Iron deficiency anemia, unspecified (principal)
CPT/HCPCS: 96365; J1756

== ENCOUNTER 2024-02-20 15:07 | Outpatient (CLI) | payer BC, SELFPAY ==
[2024-02-20 15:20] VITALS: BP 138/73; PULSE 63; RESP 16; TEMP 36.7; O2SAT 99
[2024-02-20] MEDS: IRON SUCROSE COMPLEX 200 MG in 0.9 % SODIUM CHLORIDE 100 ML 220 MG IV (15:20)
[2024-02-20] MEDS: SODIUM CHLORIDE 0.9% 50ML BAG 50 ML IV (15:20)
[2024-02-20] MEDS: SODIUM CHLORIDE 0.9% 10ML FLUSH SYRINGE 10 ML IV (15:20)
[2024-02-20 16:00] VITALS: BP 134/69; PULSE 65; RESP 16; TEMP 36.7; O2SAT 100
== END 2024-02-20 16:00 | disposition home or self-care (01) ==
LOC: INF 15:08
PROVIDERS: PCP Family Medicine; Visit Provider Internal Medicine Medical Oncology
DX: D50.9 Iron deficiency anemia, unspecified (principal)
CPT/HCPCS: 96365; J1756

== ENCOUNTER 2024-02-27 15:27 | Outpatient (CLI) | payer BC, SELFPAY ==
[2024-02-27] MEDS: SODIUM CHLORIDE 0.9% 10ML FLUSH SYRINGE 10 ML IV (15:46)
[2024-02-27 15:47] VITALS: BP 142/68; PULSE 64; RESP 16; TEMP 36.6; O2SAT 99
[2024-02-27] MEDS: IRON SUCROSE COMPLEX 200 MG in 0.9 % SODIUM CHLORIDE 100 ML 220 MG IV (15:47)
[2024-02-27] MEDS: SODIUM CHLORIDE 0.9% 50ML BAG 50 ML IV (15:47)
[2024-02-27 16:22] VITALS: BP 158/64; PULSE 62; RESP 16; TEMP 36.6; O2SAT 99
== END 2024-02-27 16:25 | disposition home or self-care (01) ==
LOC: INF 15:28
PROVIDERS: PCP Family Medicine; Visit Provider Internal Medicine Medical Oncology
DX: D50.9 Iron deficiency anemia, unspecified (principal)
CPT/HCPCS: 96365; J1756

== ENCOUNTER 2024-03-05 15:12 | Outpatient (CLI) | payer BC, SELFPAY ==
[2024-03-05] MEDS: SODIUM CHLORIDE 0.9% 50ML BAG 50 ML IV (15:25)
[2024-03-05] MEDS: IRON SUCROSE COMPLEX 200 MG in 0.9 % SODIUM CHLORIDE 100 ML 220 MG IV (15:25)
[2024-03-05 15:59] VITALS: BP 141/72; PULSE 63; RESP 18; TEMP 37.1; O2SAT 97
[2024-03-05 16:02] VITALS: BP 148/78; PULSE 67; RESP 18; TEMP 37.1; O2SAT 99
== END 2024-03-05 16:02 | disposition home or self-care (01) ==
LOC: INF 15:13
PROVIDERS: PCP Family Medicine; Visit Provider Internal Medicine Medical Oncology
DX: D64.9 Anemia, unspecified (principal)
CPT/HCPCS: 96365; J1756

== ENCOUNTER 2024-03-24 15:04 | Emergency (ER) | payer BC, SELFPAY ==
[2024-03-24 16:05] VITALS: BP 178/77; PULSE 84; RESP 18; TEMP 36.7; O2SAT 98; BMI 20.8
--- NOTE | 2024-03-24 16:05 | PC.NURSE ---
LACERATION CLEANED WITH HIBICLENSE AND STERILE WATER AT THIS TIME
--- NOTE | 2024-03-24 18:00 | EXP.UTC ---
Discharge Plan Disposition Patient Disposition: Home, Self-Care Condition: Good Prescriptions Prescriptions: No Action metoprolol succinate 50 mg tablet extended release 24 hr 50 mg PO DAILY Patient Comments: TAKE 1 TABLET BY MOUTH ONCE DAILY clopidogrel 75 mg tablet 75 mg PO DAILY Patient Comments: TAKE 1 TABLET BY MOUTH ONCE DAILY FOR PLATELET INHIBITOR amlodipine 5 mg tablet 5 mg PO DAILY Patient Comments: TAKE 1 TABLET BY MOUTH ONCE DAILY aspirin 81 mg tablet,delayed release (DR/EC) 81 mg PO DAILY Patient Comments: TAKE 1 TABLET BY MOUTH ONCE DAILY pantoprazole 40 mg tablet,delayed release (DR/EC) 40 mg PO DAILY Patient Comments: TAKE 1 TABLET BY MOUTH ONCE DAILY pramipexole 0.125 mg tablet 0.125 mg PO DAILY Patient Comments: TAKE 1 TABLET BY MOUTH ONCE DAILY irbesartan 150 mg tablet 150 mg PO DAILY Patient Comments: TAKE 1 TABLET BY MOUTH ONCE DAILY metoclopramide HCl 10 mg tablet 10 mg PO DAILY Patient Comments: TAKE 1 TABLET BY MOUTH BEFORE MEAL(S) ADMINISTER 30 MINUTES BEFORE MEALS cholecalciferol (vitamin D3) 50 mcg (2,000 unit) capsule 50 mcg PO DAILY Patient Comments: TAKE 1 CAPSULE BY MOUTH ONCE DAILY Referrals Follow up/Referrals: Dorota Patton MD [Primary Care Provider] - See instructions Activity Restrictions/Add. Instructions Additional Instructions/Restrictions: keep area clean and dry. Sutures will need to come out in 12 days. Return to [facility] or go to PCP or removal. Keep site clean and covered. Clinical Impressions Clinical Impression: Laceration of finger of left hand without foreign body without damage to nail Instructions Patient Instructions: DI for Laceration Repair -- Complex Suture Print Language Print Language: Citizen Of [place] Discharge ED Provider: Polina Garcia [facility] [place] General Stated complaint: AO 03/24/24 Laceration right middle finger Mode of Arrival: Ambulatory Source of Information: Patient Limitations: No Limitations Time Seen by Provider: 03/24/24 16:59 Description of Symptoms (Recalled from Triage Doc. by RN): PATIENT C/O LACERATION TO KNUCKLE OF RIGHT MIDDLE FINGER. 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 PATIENT IS UP TO DATE ON TDAP HEENT Symptoms (Recalled from RN notes): No Resp Symptoms (Recalled from RN notes): No Skin Symptoms (Recalled from RN notes): Yes MS Symptoms (Recalled from RN notes): No Functional Status (Recalled from RN notes): WNL History of Present Illness Provider Complaint: PATIENT C/O LACERATION TO KNUCKLE OF RIGHT MIDDLE FINGER. 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 PATIENT IS UP TO DATE ON TDAP Related Data Home Medications ?Medication ?Instructions ?Recorded ?Confirmed amlodipine 5 mg tablet 5 mg PO DAILY 03/24/24 03/24/24 aspirin 81 mg tablet,delayed 81 mg PO DAILY 03/24/24 03/24/24 release cholecalciferol (vitamin D3) 50 50 mcg PO DAILY 03/24/24 03/24/24 mcg (2,000 unit) capsule clopidogrel 75 mg tablet 75 mg PO DAILY 03/24/24 03/24/24 irbesartan 150 mg tablet 150 mg PO DAILY 03/24/24 03/24/24 metoclopramide HCl 10 mg tablet 10 mg PO DAILY 03/24/24 03/24/24 metoprolol succinate 50 mg 50 mg PO DAILY 03/24/24 03/24/24 tablet,extended release 24 hr pantoprazole 40 mg tablet,delayed 40 mg PO DAILY 03/24/24 03/24/24 release pramipexole 0.125 mg tablet 0.125 mg PO DAILY 03/24/24 03/24/24 Allergies Allergy/AdvReac Type Severity Reaction Status Date / Time No Known Allergies Allergy Verified 02/20/24 16:57 Worker's Comp Is this a Worker's Comp case?: No [facility] Disclaimer: The information contained in this section may have been updated after the patient was seen, as this information can be updated by other users. Medical History HTN (hypertension) Renal artery stenosis Chronic renal insufficiency, stage II (mild) Metatarsal fracture Fatigue SMOOTH (obstructive sleep apnea) COPD (chronic obstructive pulmonary disease) Pectus excavatum Right atrial enlargement Tobacco user HLD (hyperlipidemia) CAD (coronary artery disease) Surgical History History of neck surgery History of coronary artery stent placement H/O shoulder surgery Hx of knee surgery Family History Father Family history of myocardial infarction Social History (Updated 03/05/24 @ 15:25 by Betsy Gutierres RN) Smoking Status: Former smoker tobacco type: cigarettes packs per day: 1 second hand exposure: Yes alcohol intake: current alcohol intake frequency: holidays/special occasions only substance use type: denies use current occupational status: employed Travel in the last 8 weeks: None household members: significant other housing: house current occupation: [employer] current occupational exposures/hazards: No caffeine: No ROS Obtained: Yes All systems reviewed & no additional complaints except as documented Constitutional Constitutional: Reports system reviewed and no additional complaints, except as documented Eyes Eyes: Reports system reviewed and no additional complaints, except as documented ENT Ears, Nose, Mouth, and Throat: Reports system reviewed and no additional complaints, except as documented Cardiovascular Cardiovascular: Reports system reviewed and no additional complaints, except as documented Respiratory Respiratory: Reports system reviewed and no additional complaints, except as documented Gastrointestinal Gastrointestingal: Reports system reviewed and no additional complaints, except as documented Genitourinary Male Genitourinary: Reports system reviewed and no additional complaints, except as documented Musculoskeletal Musculoskeletal: Reports system reviewed and no additional complaints, except as documented Integumentary/Breasts Skin/Breast: Reports system reviewed and no additional complaints, except as documented, Reports as per HPI and Reports other Comments: right middle finger laceration Neurologic Neurologic: Reports system reviewed and no additional complaints, except as documented Endocrine Endocrine: Reports system reviewed and no additional complaints, except as documented Hematologic/Lymphatic Henatologic/Lymphatic: Reports system reviewed and no additional complaints, except as documented Allergic/Immunologic Allergic/Immunologic: Reports system reviewed and no additional complaints, except as documented Physical Exam General General appearance: alert and in no apparent distress Head Head exam: atraumatic and normocephalic Eye Eye exam: Present normal appearance ENT ENT exam: Present normal exam and normal oropharynx Neck Neck exam: Present normal inspection Chest Chest inspection: Present normal inspection and symmetric chest wall rise Respiratory Respiratory exam: Present normal lung sounds bilaterally Cardiovascular Cardiovascular exam: Present regular rate and normal rhythm Abdominal Exam Abdominal exam: Present soft Expanded Upper Extremity Exam Right: Shoulder exam: Present normal inspection Arm exam: Present normal inspection Elbow exam: Present normal inspection Forearm/Wrist exam: Present normal inspection Hand exam: Present laceration Hand L/R back image: 1. laceration Vascular exam: Normal capillary refill Back Exam Back exam: Present normal inspection Neurological Exam Neurological exam: Present alert and oriented X3 Psychiatric Psychiatric exam: Present normal affect and normal mood Skin Skin exam: Present warm, dry and other (laceration to right middle finger) Lymphatic Lymphatic Findings: no adenopathy Medical Decision Making Medical Records Screening: Per USPSTF and CDC recommendations, given the prevalence of disease in our region, it is our hospital?s policy to screen for HIV and viral Hepatitis for all patients aged 18 and over and those with ongoing risk factors. Wagner Inquiry Pt receiving controlled substance: No Wagner was queried for this patient: No Vital Signs: 03/24/24 16:05 Temperature 98.0 F Temperature Source Oral Pulse Rate [Left Brachial] 84 Respiratory Rate 18 Blood Pressure [Left Arm] 178/77 H Blood Pressure Mean [Left Arm] 110 Blood Pressure Source [Left Arm] Automatic Cuff Blood Pressure Position [Left Arm] Sitting 02 Sat by Pulse Oximetry 98 Oxygen Delivery Method Room Air Procedures Laceration Laceration 1: Site: finger (middle) Side (If applicable): right Description: flap Depth: simple, single layer Local Anesthetic: lidocaine 2% Pre-repair: irrigated extensively Skin layer closed with: nylon Size (cm): 4-0 Number of sutures: 3 Technique: simple, interrupted
[2024-03-24 18:05] VITALS: BP 178/77; PULSE 84; RESP 18; TEMP 36.7; O2SAT 98
== END 2024-03-24 18:18 | disposition home or self-care (01) ==
PROVIDERS: Emergency Provider Nurse Practitioner Family; PCP Family Medicine
DX: S61.213A Laceration without foreign body of left middle finger without damage to nail, initial encounter (principal); W26.0XXA Contact with knife, initial encounter
CPT/HCPCS: 12001; 99214; G0382

== ENCOUNTER 2024-04-05 11:47 | Outpatient (CLI) | payer BC, SELFPAY ==
--- OUTSIDE RECORDS SUMMARY | 2024-04-05 11:53 | XMS_ITS | Encounter Summary ---
Author Organization [facility] Address [address] [place], [place] [id number] Phone [email or web address] Care Team Providers Care Rad Tech Name Role Phone Noah Wagner Primary Care Provider [phone] Reason for Visit * Reason Comments Immunization Encounter Details Date Type Department Care Team (Late st Contact Info) Description 12/11/2021 2:15 PM EDT Immunization [address] [place] [address] Arlene Pires, RN [address] [place] [address] Need for Tdap vaccination (Primary Dx) Social History Tobacco Use Types Packs/Day Years Used Date Smoking Tobacco: Every Day Smokeless Tobacco: Never Intimate Partner Violence Answer Date R ecorded Insults You Not on file 08/27/2020 Threatens You Not on file 08/27/2020 Screams at You Not on file 08/27/2020 Physically Hurt Not on file 08/27/2020 Intimate Partner Violence Score Not on file 08/27/2020 Depression Answer Date Recorded PHQ Total Score Not on file 05/02/2021 Stress Answer Date Recorded Stress in your Life 0 06/27/2020 Dealing with Stress Not on file 06/27/2020 Sex and Gender Information Value Date Recorded Sex Assigned at Not on file Legal Sex Male 9:26 AM CDT Gender Identity Not on file Sexual Orientation Not on file documented as of this encounter Last Filed Vital Signs Vital Sign Reading Time Taken Comments Blood Pressure 170/83 12/11/2021 2:18 PM EDT Pulse 74 12/11/2021 2:18 PM EDT Temperature 36.4 ??C (97.5 ??F) 12/11/2021 2:18 PM ED T Respiratory Rate 18 12/11/2021 2:18 PM EDT Oxygen Saturation - - Inhaled Oxygen Concentration - - Weight - - Height - - Body Mass Index - - documented in this encounter Progress Notes * Arlene Pires RN - 12/11/2021 2:15 PM EDT Arjun Melton is a 56 y.o. male who [facility] the [facility] for Tdap immunization(s) ordered by ABRAN Galeana. See Immunization activity for required documentation. Post-treatment monitoring done per protocol. Patient observed for adverse reactions for 15 minutes. Adverse reaction(s): None Vitals: 12/11/21 1418 BP: 170/83 Pulse: 74 Resp: 18 Temp: 97.5 ??F TM is on BP medications. Denies any CP, SOB or lightheaded/dizzy. TM reports that he has not taken his medication today. ICD-10-CM ICD-9-CM 1. Need for Tdap vaccination Z23 V06.1 Immunization History Administered Date(s) Administered ??? Tdap 12/11/2021 Arlene Pires RN documented in this encounter Plan of Treatment Not on file documented as of this encounter Visit Diagnoses Diagnosis Need for Tdap vaccination- Primary Need for prophylactic vaccination with combined [id number]-deyenfrhx (DTP) vaccine documented in this encounter Care Teams Rad Tech Relationship Specialty Start Date End Date Noah Wagner. [facility] [address] [place] [address] PCP - General Family Medicine 04/07/20 documented as of this encounter
--- OUTSIDE RECORDS SUMMARY | 2024-04-05 11:53 | XMS_ITS | Encounter Summary ---
Author Organization [facility] Address [address] [place], [place] [id number] Phone [email or web address] Care Team Providers Care Contract Specialist Name Role Phone Noah Wagner Primary Care Provider [phone] Encounter Details Date Type Department Care Team (Late st Contact Info) Description 09/20/[address] [place] [phone] Mary Dwyer RN [address] [place] [address] Social History Tobacco Use Types Packs/Day Years Used Date Smoking Tobacco: Every Day Smokeless Tobacco: Never Intimate Partner Violence Answer Date R ecorded Insults You Not on file 08/27/2020 Threatens You Not on file 08/27/2020 Screams at You Not on file 08/27/2020 Physically Hurt Not on file 08/27/2020 Intimate Partner Violence Score Not on file 08/27/2020 Depression Answer Date Recorded PHQ Total Score 0 09/15/2023 Stress Answer Date Recorded Stress in your Life 0 06/27/2020 Dealing with Stress Not on file 06/27/2020 Sex and Gender Information Value Date Recorded Sex Assigned at Not on file Legal Sex Male 9:26 AM CDT Gender Identity Not on file Sexual Orientation Not on file documented as of this encounter Miscellaneous Notes * Telephone Encounter - Mary Dwyer RN - 09/20/2023 3:25 PM EDT Returned call to wallpaper remover steam to other number [phone]. He has been notified of new work conditioning date d/t medical release date from PCP is 09/27. [facility] Sherman West APRN 10/10 11:30 am. Reviewed where to go for conditioning. Mary Dwyer RN documented in this encounter Plan of Treatment Not on file documented as of this encounter Visit Diagnoses Not on filedocumented in this encounter Care Teams Contract Specialist Relationship Specialty Start Date End Date Noah Wagner[address] [address] PCP - General Family Medicine 04/07/20 documented as of this encounter
--- OUTSIDE RECORDS SUMMARY | 2024-04-05 11:53 | XMS_ITS | Encounter Summary ---
Author Organization [facility] Address [address] [place], [place] [address] Phone [email or web address] [email or web address] Care Team Providers Care Cosmetician Apprentice Name Role Phone Noah Wagner Primary Care Provider [phone] Encounter Details Date Type Department Care Team (Late st Contact Info) Description 06/08/[address] [place] [phone] Mary Dwyer RN [address] [place] [address] Social History Tobacco Use Types [...] Telephone Encounter - Mary Dwyer RN - 06/08/2023 3:30 PM EST Return call from body team member. He was discharged yesterday from Hospital and has been placed on blood thinner and other new meds post stent. He will have a nephrology referral , cardiac rehab. He has release for 06/13/23 and will follow up with Cardiology in 1 month. He has an appt with his PCP in am, 09:30. Told him to call tomorrow after appt . He wanted to talk to Sherman West APRN with an update. Mary Dwyer RN Y POLISHER documented in this encounter Plan of Treatment Not on file documented as of this encounter Visit Diagnoses Not on filedocumented in this encounter Care Teams Cosmetician Apprentice Relationship Specialty Start Date End Date [place] [address] [facility] [place] [address] PCP - General Family Medicine 04/07/20 documented as of this encounter
--- OUTSIDE RECORDS SUMMARY | 2024-04-05 11:53 | XMS_ITS | Encounter Summary ---
Author Organization [facility] Address [address] [place], [place] [id number] Phone [email or web address] [email or web address] Care Team Providers Care Sap Basis Name Role Phone Noah Wagner Primary Care Provider [phone] Encounter Details Date Type Department Care Team (Late st Contact Info) Description 06/13/[address] [place] [phone] Mary Dwyer RN [address] [place] [address] Social History Tobacco Use Types [...] Telephone Encounter - Mary Dwyer RN - 06/13/2023 8:45 AM EST Reviewed with provide that TM called back on afternoon stating his PCP wants him to remainoff work a few weeks d/t healing in arm from heart cath and to start his rehab. He has new medications post stent placement from week prior. No more recurrent chest pain. He will follow up in a few weeks with PCP and review possible release to return to work. He will call to scheduled a RTW appt. Mary Dwyer RN N MERCERIZING MACHINE OPERATOR documented in this encounter Plan of Treatment Not on file documented as of this encounter Visit Diagnoses Not on filedocumented in this encounter Care Teams Sap Basis Relationship Specialty Start Date End Date Noah Wagner [facility] [address] [address] PCP - General Family Medicine 04/07/20 documented as of this encounter
--- OUTSIDE RECORDS SUMMARY | 2024-04-05 11:53 | XMS_ITS | Encounter Summary ---
Author Organization [facility] Address [address] [place], [place] [address] Phone CareEverywhereSuppor [email or web address] Care Team Providers Care Lab Nurse Name Role Phone Noah Wagner Primary Care Provider [phone] Encounter Details Date Type Department Care Team (Late st Contact Info) Description [address] [place] [phone] Mary Dwyer RN [address] [place] [address] Social History Tobacco Use Types [...] Telephone Encounter - Mary Dwyer RN - 2023 9:51 AM EDT Update from staffing on return to previous job location /CC: Yes please have him return to the same area.( Per Celestina Moore). Called TM d/t received notes from PA from [facility] and PCP. His release from PCP is for 09/28/23 and not 09/18. He states LF/STD has him off till 09/27 . He has been r/s to 09/27 , 9am with out onsite Work Conditioning office. Will review with provider. Mary Dwyer RN. documented in this encounter Plan of Treatment Not on file documented as of this encounter Visit Diagnoses Not on filedocumented in this encounter Care Teams Lab Nurse Relationship Specialty Start Date End Date oNah Wagner[address] [address] PCP - General Family Medicine 04/07/20 documented as of this encounter
--- OUTSIDE RECORDS SUMMARY | 2024-04-05 11:53 | XMS_ITS | Encounter Summary ---
Author Organization [facility] Address [address] [place], [place] [phone] Phone [email or web address] [email or web address] Care Team Providers Care Associate Theatre Professor Name Role Phone Noah Wagner Primary Care Provider [phone] Reason for Visit * Reason Comments Heart Issue Encounter Details Date Type Department Care Team (Latest Contact Info) Description 12/23/2023 11:30 AM EDT Clinical Support ALIRE[facility] [address] [place] [address] Charu West, GARCIA [address] [place] [address] Dizziness (Primary Dx) Social History Tobacco Use Types [...] Sign Reading Time Taken Comments Blood Pressure 178/80 12/23/2023 10:43 AM EDT Pulse 63 12/23/2023 10:43 AM EDT Temperature 36.4 ??C (97.5 ??F) 12/23/2023 10:43 AM E DT Respiratory Rate 18 12/23/2023 10:43 AM EDT Oxygen Saturation 100% 12/23/2023 10:43 AM EDT Inhaled Oxygen Concentration - - Weight - - Height - - Body Mass Index - - documented in this encounter Patient Instructions * Patient Instructions* Charu West NP - 12/23/2023 11:30 AM EDT TM not fit for duty. to transport to ER/specialist. F/u once released to RTW. TM has [place]on contact #'s. documented in this encounter Progress Notes * Charu West NP - 12/23/2023 11:00 AM EDT Subjective Arjun Melton is a 58 y.o. male. 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 Onset: Since waking Symptoms: Transported TM back to [facility] 1999 via [place] without stretcher. Notes: TM found seated in break area. TM states heartburn upon waking today. TM states after arriving to work he started feeling slightly off . TM states room wasn't spinning, I just couldn't focus . TM states no current CP or SOA. Elevated BP noted. Neuro check WNL. FSBG 100. TM states recent MIin May with stent placement, x4 in heart and x1 in kidney. Triage nurse: ASC RN This was an emergency call with a disruption in patient care and scheduled clinic appointments. History Reviewed: Tobacco Allergies Meds Problems Med Hx Surg Hx HPI As noted in CC. TM in per EMS/RN with c/o dizziness and feeling off since ~ 8A today. States he felt fine upon arrival to work when he had a sudden onset of symptoms. States he began to feel dizzy and like he couldn't focus. Had a 30 second span of hearing loss which has resolved. States he could see a co-worker moving her lips but he could not hear what she was saying. During this episode hehad no chest pain, palpitations, SOA, h/a, weakness, n/t, nausea or diaphoresis. States he sat downand rested for a bit and felt some better but the symptoms have not totally resolved. He did takea NTG SL and he felt some better after. No other meds taken. He continued with symptoms. GL checkedon him and due to ongoing symptoms EMS was dispatched. PMH: CAD (NSTEMI, stents x4), Stage 3 renal disease, SMOOTH, COPD, hyperlipidemia, smoker. Contacted to discuss treatment plan. TM specialist in [place]. Will contact office for plan.Plan to see specialist or ER if advised. Review of Systems Constitutional: Negative for diaphoresis. HENT: Positive for hearing loss. 30 second hx - now resolved. Eyes: Negative for visual disturbance. Respiratory: Negative for chest tightness and shortness of breath. Cardiovascular: Negative for chest pain and palpitations. Gastrointestinal: Negative for nausea and vomiting. Mild heartburn upon awakening. Not new. Awaiting diagnostics. Skin: Negative for pallor. Neurological: Positive for dizziness. Negative for facial asymmetry, speech difficulty, weakness, numbness and headaches. PHQ-9 Total Score: 0 (12/23/2023 10:45 AM) Objective Vitals: 12/23/23 1043 BP: (!) 178/80 Pulse: 63 Resp: 18 Temp: 97.5 ??F SpO2: 100% Orthostatic Vitals: 12/23/23 1118 12/23/23 1119 12/23/23 1120 Orthostatic BP: 166/69 176/86 168/84 Orthostatic Pulse: 63 62 67 Results for orders placed or performed in visit on 12/23/23 POCT glucose Result Value Ref Range Glucose, POC 100 (A) 65 - 99 mg/dL Glucose (Glucometer), POC IQC Yes, verified internal control performed correctly. Lot Number Expiration Date Physical Exam Vitals and nursing note reviewed. Constitutional: General: He is not in acute distress. Appearance: He is not diaphoretic. HEENT: TM's clear bilat, PERRL @ 4mm, + EOM's. Cardiovascular: Rate and Rhythm: Normal rate and regular rhythm. Pulses: Normal pulses. Heart sounds: Normal heart sounds. Pulmonary: Effort: Pulmonary effort is normal. Breath sounds: Normal breath sounds. Abdominal: Palpations: Abdomen is soft. Skin: General: Skin is warm and dry. Capillary Refill: Capillary refill takes less than 2 seconds. Neurological: General: No focal deficit present. Mental Status: He is alert. Gait: Gait normal. Cerebellar: intact CN's: intact Strength: = bilat UE/LE No drift, facial assymmetry Psychiatric: Mood and Affect: Mood normal. Assessment: ICD-10-CM ICD-9-CM 1. Dizziness R42 780.4 ECG 12 lead POCT glucose Orders Placed This Encounter Procedures POCT glucose ECG 12 lead SB @ 59, no acute changes/ectopy. Patient Instructions TM not fit for duty. to transport to ER/specialist. F/u once released to RTW. TM has Claude contact #'s. documented in this encounter Plan of Treatment Not on file documented as of this encounter Procedures Procedure Name Priority Date/Time Associated Diagnosis Comments ECG 12-LEAD Routine 12/27/2023 9:50 AM EDT Dizziness POCT GLUCOSE Routine 12/23/2023 10:49 AM EDT Dizziness documented in this encounter Results * ECG 12 lead (12/27/2023 9:50 AM EDT) Charu West NP ECG ORDERABLES Final Resul t * (ABNORMAL) POCT glucose (12/23/2023 10:49 AM EDT) Glucose, POC 100(A) 65 - 99 mg/dL Glucose (Glucometer), POC IQC Yes, verified internal control performed correctly. Lot Number Comment:ER1 Expiration Date Comment:ER1 Blood (Blood, Capillary) 12/23/2023 10:49 AM EDT Charu West NP POINT OF CARE TEST ORDERABL ES Final Result documented in this encounter Visit Diagnoses Diagnosis Dizziness- Primary Dizziness and giddiness documented in this encounter Care Teams Associate Theatre Professor Relationship Specialty Start Date End Date Noah Wagner [address] [address] PCP - General Family Medicine 04/07/20 documented as of this encounter
--- OUTSIDE RECORDS SUMMARY | 2024-04-05 11:53 | XMS_ITS | Clinical Summary ---
Author Organization [facility] Address [address] [place], [place] [id number] Phone [email or web address] [email or web address] Care Team Providers Care Blood Bank Technologist Name Role Phone Noah Wagner Primary Care Provider [phone] Allergies No known active allergies Medications desipramine (NOPRAMIN) 10 MG tablet 5 08/25/2018 Active pyridoxine (VITAMIN B-6) 100 MG tablet 5 08/24/2018 Activ e acetaminophen (TYLENOL) 325 MG tablet Take by mouth every 6 (six) hours if needed for mild pain. Active esomeprazole (NexIUM) [address] capsule 01/20/2020 Active metoprolol succinate XL (TOPROL-XL) 50 MG 24 hr tablet Take 50 mg by mouth 1 (one) time each day. 04/09/2020 Active EQ Aspirin Adult Low Dose 81 MG EC tablet 02/25/2021 Active cetirizine (ZyrTEC) 10 MG tablet Take 10 mg by mouth once daily as needed. 09/10/2020 Active clopidogrel (PLAVIX) 75 MG tablet 12/22/2020 Active dilTIAZem CD (CARDIZEM CD) 120 MG 24 hr capsule Take 120 mg by mouth 1 (one) time each day. 04/19/2023 Active ranolazine (RANEXA) 1000 MG 12 hr tablet 09/14/2023 Active atorvastatin (LIPITOR) 80 MG tablet 80 mg. 06/24/2023 Active ferrous sulfate 325 (65 Fe) MG EC tablet 09/14/2023 Active amLODIPine (NORVASC) 5 MG tablet Take 5 mg by mouth 1 (one) time each day. 08/10/2023 Active isosorbide mononitrate (IMDUR) 60 MG 24 hr tablet Take 60 mg by mouth 1 (one) time each day. 08/18/2023 Active isosorbide mononitrate (IMDUR) 30 MG 24 hr tablet Take 30 mg by mouth 1 (one) time each day in the morning. Active irbesartan (AVAPRO) 150 MG tablet 12/22/2023 Active Active Problems Problem Noted Date Diagnosed Date Need for Tdap vaccination 12/11/2021 Alteration in skin integrity in adult 12/11/2021 Encounter for hearing screening without abnormal findings 09/17/2021 Brachial neuritis 05/06/2015 Overview (10/12/2017): Pain in joint, shoulder region 04/18/2015 Overview (10/12/2017): Cervicalgia 04/18/2015 Overview (10/12/2017): Cervical spondylosis without myelopathy 04/18/20 15 Overview (10/12/2017): Other acquired hammer toe 07/01/2008 Overview (10/12/2017): Foreign body in cornea 02/27/2008 Overview (10/12/2017): Superficial injury of cornea 02/26/2008 Overview (10/12/2017): Injury, other and unspecified, finger 11/06/2007 Overview (10/12/2017): Other examination of ears and hearing 10/18/2007 Overview (10/12/2017): Other unspecified back disorder 04/14/2007 Overview (10/12/2017): Tobacco use disorder 04/12/2007 Overview (10/12/2017): Immunizations Name Administration Dates Next Due Tdap (ADACEL BOOSTRIX) ([id number]) 12/11/2021 Social History Tobacco Use Types Packs/Day Years Used Date Smoking Tobacco: Every Day Smokeless Tobacco: Never Tobacco Cessation:Ready to Q uit: Not Asked; Counseling Given: Not Answered Intimate Partner Violence Answer Date R ecorded Insults You Not on file 08/27/2020 Threatens You Not on file 08/27/2020 Screams at You Not on file 08/27/2020 Physically Hurt Not on file 08/27/2020 Intimate Partner Violence Score Not on file 08/27/2020 Depression Answer Date Recorded PHQ Total Score 0 09/15/2023 Stress Answer Date Recorded Stress in your Life Not on file 03/18/2024 Dealing with Stress 3 03/18/2024 Sex and Gender Information Value Date Recorded Sex Assigned at Not on file Legal Sex Male 9:26 AM CDT Gender Identity Not on file Sexual Orientation Not on file Last Filed Vital Signs Vital Sign Reading Time Taken Comments Blood Pressure 102/65 12/26/2023 5:50 AM EDT Pulse 63 12/26/2023 5:50 AM EDT Temperature 36.9 ??C (98.4 ??F) 12/26/2023 5:50 AM ED T Respiratory Rate 18 12/26/2023 5:50 AM EDT Oxygen Saturation 98% 12/26/2023 5:50 AM EDT Inhaled Oxygen Concentration - - Weight 68 kg (150 lb) 09/15/2023 9:43 AM EDT Height 172.7 cm (5' 8 ) 09/15/2023 9:43 AM EDT Body Mass Index 22.81 09/15/2023 9:43 AM EDT Plan of Treatment Health Maintenance Due Date Last Done Comments Dental Cleaning/Exam 1965 HIV Screening 1965 Hepatitis C Screening 1965 Annual Preventive Exam 09/18/1981 Hep B Infection Screening - Surface Antigen 09/18/1981 Colorectal Cancer Screening 09/18/1993 Covid-19 Immunization ( season) 2024 08/20/2020 Influenza Immunization (#1) 2024 10/0 10/2021, 02/25/2021, 03/04/2020, Additional history exists Tetanus (Tdap or Td) Immunization 12/12/2031 12/11/2021, 04/13/2021, 07/25/2019, Additional history exists Pneumococcal: Ped (0 to 5 Yrs) and At-Risk Member (6 to 64 Yrs) Completed 08/12/2022, 07/30/2016 Zoster Immunization Completed 11/01/2022, 3 HIB Immunization Aged Out No longer e ligible based on patient's age to complete this topic HPV Immunization Aged Out No longer e ligible based on patient's age to complete this topic Hepatitis A Immunization Aged Out No longer eligible based on patient's age to complete this topic Hepatitis B Immunization Aged Out No longer eligible based on patient's age to complete this topic Polio Immunization Aged Out No longer eligible based on patient's age to complete this topic Insurance OPT OUT NO COPAY NB Care Teams Blood Bank Technologist Relationship Specialty Start Date End Date [place] Wagner[place] [id number] PCP - General Family Medicine 04/07/20
--- OUTSIDE RECORDS SUMMARY | 2024-04-05 11:53 | XMS_ITS | Encounter Summary ---
Author Organization [facility] Address [address] [place], [place] [address] Phone [email or web address] Care Team Providers Care Automatic Spinning Lathe Setter Name Role Phone Noah Wagner Primary Care Provider [phone] Encounter Details Date Type Department Care Team (Late st Contact Info) Description 10/05/[address] [place] [address] Charu West, GARCIA [address] [place] [address] Social History Tobacco Use Types [...] encounter Miscellaneous Notes * Telephone Encounter - Charu West NP - 10/05/2023 5:42 AM EDT ----- Message from Mary Dwyer sent at 10/03/2023 1:19 PM EDT ----- Regarding: WH question :PRTW direct support staff member called asking about WH activities. He is confused b/c his follow up is after the Holiday next week and he has been told tomorrow is last day of WH per Hardening office. The order is for 1week per chart but I told him when I scheduled his appt I was thinking of ~ 2 weeks after start date of WH 09/27 ( date of MD release). 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 Itold him I would notify [facility] provider and review question. Mary Dwyer RN Call to TM # x2 with no answer/message left. No return call. Call to Bhupinder @ [facility] re: WH. Verbal order to extend WH x1 additional wk (originally 1 week only). Will f/u as scheduled on 10/10 @ 1130A. Bhupinder to notify TM while @ WH. documented in this encounter Plan of Treatment Not on file documented as of this encounter Visit Diagnoses Not on filedocumented in this encounter Care Teams Automatic Spinning Lathe Setter Relationship Specialty Start Date End Date Noah Wagner [place] [address] [place] [place] [address] PCP - General Family Medicine 04/07/20 documented as of this encounter
--- OUTSIDE RECORDS SUMMARY | 2024-04-05 11:53 | XMS_ITS | Encounter Summary ---
Author Organization [facility] Address [address] [place], [place] [address] Phone [email or web address] [email or web address] Care Team Providers Care Drain Cleaner Name Role Phone Noah Wagner Primary Care Provider [phone] Encounter Details Date Type Department Care Team (Late st Contact Info) Description 06/08/[address] [place] [address] Mary Dwyer RN [address] [place] [address] Social History Tobacco Use Types [...] Encounter - Mary Dwyer RN - 06/08/2023 12:35 PM EST Missed call from TM. Recent CP , stent per chart. Left message that if he has been release to call me or [facility] back about scheduling an appt. Mary Dwyer RN RESOURCE NURSE documented in this encounter Plan of Treatment Not on file documented as of this encounter Visit Diagnoses Not on filedocumented in this encounter Care Teams Drain Cleaner Relationship Specialty Start Date End Date Noah Wagner [facility] [address] [address] PCP - General Family Medicine 04/07/20 documented as of this encounter
--- OUTSIDE RECORDS SUMMARY | 2024-04-05 11:53 | XMS_ITS | Encounter Summary ---
Author Organization [facility] Address [address] [place], [place] [address] Phone [email or web address] [email or web address] Care Team Providers Care Water Project Manager Name Role Phone Noah Wagner Primary Care Provider [phone] Reason for Visit * Reason Comments Care Coordination Encounter Details Date Type Department Care Team (Latest Contact Info) Description 06/03/2023 8:30 AM EST Clinical Support [place] [address] [address] [place] [address] Charu West, GARCIA [address] [place] [address] Chest pain, unspecified type (Primary Dx); Hx of heart artery stent Social History Tobacco Use Types Packs/Day Years [...] Sign Reading Time Taken Comments Blood Pressure 151/86 06/03/2023 9:54 AM EST Pulse 87 06/03/2023 9:54 AM EST Temperature - - Respiratory Rate 18 06/03/2023 8:28 AM EST Oxygen Saturation 97% 06/03/2023 9:54 AM EST Inhaled Oxygen Concentration - - Weight - - Height - - Body Mass Index - - documented in this encounter Patient Instructions * Patient Instructions* Charu West NP - 06/03/2023 8:30 AM EST TM transported to [facility] per [facility]. notified per provider. F/u [facility] once released to RTW. RIALS COORDINATOR documented in this encounter Progress Notes * Charu West NP - 06/03/2023 8:30 AM EST Subjective Arjun Melton is a 57 y.o. male. 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 Onset: midnight last night Symptoms: chest pain radiating to left jaw, indigestion, vomit x1, and SOB Transported TM back to [facility] via [place] without stretcher. Notes: Upon arrival to scene, TM was sitting in break room area. TM reports that he has been havingchest pain since midnight last night. TM reports pain at worst is 8/10 and current is 4/10. TM reports that pain is on left side radiating up into jaw. TM reports that he vomited before work and had taken 8 to 9 tums maybe even more to try to get it to go away. Cardiac history with stent placement 5 years ago-TM reports that he had a second blockage that wasn't able to be stented yet due to 65%blockage. Reviewed allergies, daily medications, and medical/surgical history with TM-view chart for further details. Vitals obtained. 4 lead obtained. TM taken back to [facility] 1999 by this RN and EMT for further evaluation. TM assisted to ER bed 1. ECG 12 lead obtained. ALS dispatched. IV start time: 0830. Initiated IV access to antecubital left, condition patent and no redness without problems; 18 gauge IV on 1st attempt. Normal saline at KVO. 3 baby aspirin administered 0835. Nitro at 0845. TM reports almost immediate relief after nitro. Report gave to ALS per Charu West APRN, care transferred to [facility]. Triage nurse: SANDY ZunigaN, RN This was an emergency call with a disruption in patient care and scheduled clinic appointments. History Reviewed: Tobacco Allergies Meds Problems Med Hx Surg Hx HPI 57 yr old male in per EMS/RN with c/o mid-sternal chest pain with radiation to the left jaw and associated SOA, diaphoresis, nausea and vomiting. Denies any n/t or dizziness. Cardiac hx as noted above. Stopped smoking 7 wks ago. TM admits he has been having intermittent pain for ~ 1 yr but only occasional with exertion. One month ago while cutting a load of wood he had significant pain and took his last ntg which helped. For the past week he has been having intermittent pain that would go away.Last night (12A) he began having pain 8/10 @ rest. He did not have a ntg. The symptoms continued through the night ranging from a 4-8/10. He was going to call in to work but could not reach his GL sohe came in. 0830: IV #18 saline lock left AC per RN. 0835: Spoke to , aware of plan. Baby ASA x3 po. Pain 3/10. 0845: Pain up to 5/10. Ntg 1/150 SL. Near immediate relief of pain 0/10. Review of Systems Constitutional: Positive for diaphoresis. Respiratory: Positive for shortness of breath. Cardiovascular: Positive for chest pain. Negative for palpitations. Gastrointestinal: Positive for nausea and vomiting. Skin: Negative for pallor. Neurological: Negative for dizziness, numbness and headaches. Objective Vitals: 06/03/23 0828 06/03/23 0952 06/03/23 0953 06/03/23 0954 BP: 149/81 (!) 158/77 (!) 150/95 (!) 151/86 Pulse: 93 72 91 87 Resp: 18 SpO2: 99% 98% 98% 97% Physical Exam Vitals and nursing note reviewed. Constitutional: General: He is not in acute distress. Appearance: He is not diaphoretic. Cardiovascular: Rate and Rhythm: Normal rate and regular rhythm. Pulses: Normal pulses. Heart sounds: Normal heart sounds. Pulmonary: Effort: Pulmonary effort is normal. Breath sounds: Normal breath sounds. Abdominal: Palpations: Abdomen is soft. Skin: General: Skin is warm and dry. Capillary Refill: Capillary refill takes less than 2 seconds. Neurological: General: No focal deficit present. Mental Status: He is alert. Gait: Gait normal. Psychiatric: Mood and Affect: Mood normal. Assessment: ICD-10-CM ICD-9-CM 1. Chest pain, unspecified type R07.9 786.50 ECG 12 lead 2. Hx of heart artery stent Z95.5 V45.82 Orders Placed This Encounter Procedures ECG 12 lead SR, no acute changes/ectopy. Patient Instructions TM transported to [facility] per [facility]. notified per provider. F/u [facility] once released to RTW. RIALS COORDINATOR documented in this encounter Plan of Treatment Not on file documented as of this encounter Procedures Procedure Name Priority Date/Time Associated Diagnosis Comments ECG 12-LEAD Routine 06/03/2023 9:51 AM EST Chest pain, unspecified type documented in this encounter Results * ECG 12 lead (06/03/2023 9:51 AM EST) Impressions Charu West NP - 06/03/2023 9:51 AM EST SR, no acute changes/ectopy. Charu West NP ECG ORDERABLES Final Resul t documented in this encounter Visit Diagnoses Diagnosis Chest pain, unspecified type- Primary Hx of heart artery stent documented in this encounter Care Teams Water Project Manager Relationship Specialty Start Date End Date Noah Wagner E. [facility] [address] [address] PCP - General Family Medicine 04/07/20 documented as of this encounter
--- OUTSIDE RECORDS SUMMARY | 2024-04-05 11:53 | XMS_ITS | Encounter Summary ---
Author Organization [facility] Address [address] [place], [place] [address] Phone CareEverywhereSuppor [email or web address] Care Team Providers Care Lodge Officer Name Role Phone Noah Wagner Primary Care Provider [phone] Encounter Details Date Type Department Care Team (Latest Contact Info) Description 10/11/2023 11:30 AM EDT Office Visit [place] [address] [facility] [address] [place] [address] Charu West, PROVER [address] [place] [address] Encounter for other administrative examinations (Primary Dx); Hx of heart artery stent; History of stent insertion of renal artery; Chest pain, unspecified type Social History Tobacco Use Types Packs/Day Years [...] Sign Reading Time Taken Comments Blood Pressure 144/76 10/11/2023 11:27 AM EDT Pulse 61 10/11/2023 11:27 AM EDT Temperature - - Respiratory Rate 14 10/11/2023 11:27 AM EDT Oxygen Saturation - - Inhaled Oxygen Concentration - - Weight - - Height - - Body Mass Index - - documented in this encounter Patient Instructions * Patient Instructions* Charu West NP - 10/11/2023 11:30 AM EDT Complete WH this week. RTW, reintro / x 10 days. Cont HEP. Cont with care of specialist. TM to notify Claude of RTW date. F/u [facility] prn. documented in this encounter Progress Notes * Charu West NP - 10/11/2023 11:30 AM EDT Subjective Arjun Melton is a 57 y.o. male who presents for personal return to work. 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 Romero (previous ) Current Pillowcase Sewer : Dr. Barillas ( [facility]). RELEASE: 09/28/23- see chart. ([facility]) PMLOA. WCWH. Today is 7 th day of Work Conditioning /Hardening appts. He feels improvement with exercise and WC/WH activities. He feels improvement as well with ADLs. Reports no chest pain or SOA today. Less lethargic. Occasional dizziness . Next follow up is November with Darell. Triage nurse: Mary Dwyer RN HPI As noted in CC. TM doing ok with WH. Scheduled to complete this week. Does feel he has improved stamina. Not as fatigued and lethargic. No chest pain, palpitations or SOA. Had episode of dizziness felt to be due to BP med. Now taking at HS and has not had any further issues. To see specialist in November. History Reviewed: Tobacco Problems Med Hx Surg Hx Objective Visit Vitals BP (!) 144/76 (Patient Position: Sitting) Pulse 61 Resp 14 Smoking Status Every Day Review of Systems Constitutional: Positive for fatigue but improved. Respiratory: Negative for chest tightness and shortness of breath. Cardiovascular: Negative for chest pain or palpitations. Neurological: Negative for dizziness, weakness and numbness. PHQ-9 Total Score: 0 (09/15/2023 10:01 AM) Physical Exam Vitals and nursing note reviewed. Constitutional: General: He is not in acute distress. Appearance: He is not diaphoretic. Cardiovascular: Rate and Rhythm: Normal rate and regular rhythm. Pulses: Normal pulses. Heart sounds: Normal heart sounds. Pulmonary: Effort: Pulmonary effort is normal. Breath sounds: Normal breath sounds. Musculoskeletal: Right lower leg: No edema. Left lower leg: No edema. Skin: General: Skin is warm and dry. Capillary Refill: Capillary refill takes less than 2 seconds. Neurological: General: No focal deficit present. Mental Status: He is alert. Psychiatric: Mood and Affect: Mood normal. Behavior: Behavior normal. Assessment: ICD-10-CM ICD-9-CM 1. Encounter for other administrative examinations Z02.89 V68.89 2. Hx of heart artery stent Z95.5 V45.82 3. History of stent insertion of renal artery Z98.890 V45.89 4. Chest pain, unspecified type R07.9 786.50 No orders of the defined types were placed in this encounter. Patient Instructions Complete WH this week. RTW, reintro 6/ x 10 days. Cont HEP. Cont with care of specialist. TM to notify Claude of RTW date. F/u [facility] prn. documented in this encounter Plan of Treatment Not on file documented as of this encounter Visit Diagnoses Diagnosis Encounter for other administrative examinations- Primary Hx of heart artery stent History of stent insertion of renal artery Chest pain, unspecified type documented in this encounter Care Teams Lodge Officer Relationship Specialty Start Date End Date Noah Wagner E. [address] [address] PCP - General Family Medicine 04/07/20 documented as of this encounter
--- OUTSIDE RECORDS SUMMARY | 2024-04-05 11:53 | XMS_ITS | Encounter Summary ---
Author Organization [facility] Address [address] [place], [place] [address] Phone [email or web address] [email or web address] Care Team Providers Care Local Sales Associate Name Role Phone Noah Wagner Primary Care Provider [phone] Encounter Details Date Type Department Care Team (Late st Contact Info) Description 10/05/[address] [place] [phone] Mary Dwyer RN [address] [place] [address] Social History Tobacco Use Types [...] Telephone Encounter - Mary Dwyer RN - 10/05/2023 4:33 PM EDT airport operations crew member did get the message about WH extended and he will have tomorrow, Tuesday ( Holiday) andfollow up that day to discuss reintro. He has notified STD/LF. Mary Dwyer RN documented in this encounter Plan of Treatment Not on file documented as of this encounter Visit Diagnoses Not on filedocumented in this encounter Care Teams Local Sales Associate Relationship Specialty Start Date End Date Noah Wagner [address] [address] PCP - General Family Medicine 04/07/20 documented as of this encounter
--- OUTSIDE RECORDS SUMMARY | 2024-04-05 11:53 | XMS_ITS | Encounter Summary ---
Author Organization [facility] Address [address] [place], [place] [id number] Phone CareEverywhereSuppor [email or web address] Care Team Providers Care Workforce Consultant Name Role Phone Noah Wagner Primary Care Provider Encounter Details Date Type Department Care Team (Latest Contact Info) Description 09/15/2023 9:30 AM EDT Office Visit [facility] [facility] [address] [place] [address] Charu West, SHOE CASER [address] [place] [address] Encounter for other administrative examinations (Primary Dx); Hx of heart artery stent; History of stent insertion of renal artery Social History Tobacco Use Types Packs/Day Years [...] Sign Reading Time Taken Comments Blood Pressure 127/72 09/15/2023 9:43 AM EDT Pulse 61 09/15/2023 9:43 AM EDT Temperature 35.9 ??C (96.6 ??F) 09/15/2023 9:43 AM ED T Respiratory Rate - - Oxygen Saturation 99% 09/15/2023 9:43 AM EDT Inhaled Oxygen Concentration - - Weight 68 kg (150 lb) 09/15/2023 9:43 AM EDT Height 172.7 cm (5' 8 ) 09/15/2023 9:43 AM EDT Body Mass Index 22.81 09/15/2023 9:43 AM EDT documented in this encounter Patient Instructions * Patient Instructions* Charu West NP - 09/15/2023 9:30 AM EDT PCP had discussed release for 09/20 if reintro available. Discussion of RTW plan with TM. He will notify his specialist & PCP of WH x1 wk followed by reintro x2 wks. He will obtain a release to RTW from both providers. WH tentatively scheduled for September 20, pending releases. TM to remain in contact with S with plan to proceed. If above plan is followed will recheck TM @ end of for reintro. documented in this encounter Progress Notes * Charu West NP - 09/15/2023 9:30 AM EDT Subjective Arjun Melton is a 57 y.o. male who presents for personal return to work. 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 Romero (previous ) Current Furnace Tender : Dr. Barillas ( [facility]). RELEASE: Pending PMLOA. Off for continue CP and multiple stent placements, cardiac and renal. Reports initially cathwith one stent on Jun 03, at [place]. Repeated cath in Jun ~ 06/27/23 per new painting worker , Dr. Boogie ( at [facility]). 4 to heart and one to Kidney ( Left). Kidney Functional back to normal. Reports 3rd heart cath in mid July d/t continued CP , normal cath. He has been in cardiac rehab until 2 weeks ago, doing treadmill at home. Intermittent chest pain but not like before, has had less fatigue. Using medication , hoping to wean off some meds. No syncope while off work. Had stopped smoking 12 weeks prior to initial LDW, cath. Next follow up with Eran is in November. Triage nurse: Mary Dwyer RN. HPI As noted in CC. TM off work since 06/03. Emergent stent @ [facility]. Ongoing issues. 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 Also had Stage 3 renal disease. Had renal stent. Creatinine much improved. Here to discuss RTW. PCP and painting worker following TM. PCP communicating with Claude. TM states he has discussed RTW with her and she feels if he is allowed a reintro she will release him 09/20. Still has mild intermittent chest pain but feeling much better. Fatigue improving. No SOA or dizziness. No longer smoking. 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 History Reviewed: Allergies Meds Problems Med Hx Surg Hx Objective Visit Vitals BP 127/72 Pulse 61 Temp 96.6 ??F Ht 5' 8 Wt 150 lb SpO2 99% BMI 22.81 kg/m?? Smoking Status Every Day BSA 1.81 m?? Review of Systems Constitutional: Positive for fatigue. Respiratory: Negative for chest tightness and shortness of breath. Cardiovascular: Positive for chest pain. Negative for palpitations. Neurological: Negative for dizziness, weakness and [...] Hx of heart artery stent Z95.5 V45.82 ECG 12 lead Ambulatory referral to Work Conditioning/Hardening 3. History of stent insertion of renal artery Z98.890 V45.89 Ambulatory referral to Work Conditioning/Hardening Orders Placed This Encounter Procedures Ambulatory referral to Work Conditioning/Hardening ECG 12 lead SB, no acute changes or ectopy. Patient Instructions PCP had discussed release for 09/20 if reintro available. Discussion of RTW plan with TM. He will notify his specialist & PCP of WH x1 wk followed by reintro x2 wks. He will obtain a release to RTW from both providers. tentatively scheduled for September 20, pending releases. TM to remain in contact with S with plan to proceed. If above plan is followed will recheck TM @ end of for reintro. documented in this encounter Plan of Treatment Not on file documented as of this encounter Procedures Procedure Name Priority Date/Time Associated Diagnosis Comments ECG 12-LEAD Routine 09/15/2023 11:25 AM EDT Hx of heart artery stent documented in this encounter Results * ECG 12 lead (09/15/2023 11:25 AM EDT) Impressions Charu West NP - 09/15/2023 11:25 AM EDT SB, no acute changes or ectopy. us Charu West NP ECG ORDERABLES Final Resul t documented in this encounter Visit Diagnoses Diagnosis Encounter for other administrative examinations- Primary Hx of heart artery stent History of stent insertion of renal artery documented in this encounter Care Teams Workforce Consultant Relationship Specialty Start Date End Date [address] [address] PCP - General Family Medicine 04/07/20 documented as of this encounter
--- OUTSIDE RECORDS SUMMARY | 2024-04-05 11:53 | XMS_ITS | Encounter Summary ---
Author Organization [facility] Address [address] [place], [place] [address] Phone [email or web address] [email or web address] Care Team Providers Care Data Entry Operator Name Role Phone Noah Wagner Primary Care Provider [phone] Reason for Visit * Reason Comments Skin Issue L ring finger wound Encounter Details Date Type Department Care Team (Latest Contact Info) Description 12/11/2021 1:30 PM EDT Clinical Support [employer] Line Side Nursing Power Train [address] [place] [address] Lauren Macedo, RN [address] [place] [address] Alteration in comfort associated with pain (Primary Dx) Social History Tobacco Use Types [...] Time Taken Comments Blood Pressure 170/83 12/11/2021 1:30 PM EDT Pulse 73 12/11/2021 1:30 PM EDT Temperature 36.4 ??C (97.6 ??F) 12/11/2021 1:30 PM ED T Respiratory Rate 18 12/11/2021 1:30 PM EDT Oxygen Saturation 98% 12/11/2021 1:30 PM EDT Inhaled Oxygen Concentration - - Weight - - Height - - Body Mass Index - - documented in this encounter Progress Notes * Lauren Macedo RN - 12/11/2021 1:30 PM EDT Reason for wellness check request: injury to L ring finger. Skin alteration, skin peeled back at finger nail from injury History: Medications: TM states he takes lisinopril and metoprolol Allergies: reviewed Medical history: reviewed Assessment Patient is Alert and oriented. In no acute distress. Subjective: TM admits discomfort and dull ache. TM denies chest discomfort, dizziness, foreign body sensation, light headedness, loss of sensation,nausea, numbness, shortness of breath, tingling, vomiting and weakness. Objective: Vitals: 12/11/21 1330 BP: 170/83 Pulse: 73 Resp: 18 Temp: 97.6 ??F SpO2: 98% Care Provided: -Wound Care: -Visual inspection. -Cleansing/irrigation with hibiclens and normal saline. -Application of topical ANTON. - Dressing applied: telfa, koban wrap and 3 steri strips.. -Patient tolerated well. -Advised to seek medical or emergency care as needed. -Vitals check. TM taken to [address] for tetanus vaccination and for inspection by Alesha. Dressing and steri strips placed per Nan's orders and vaccination tolerated well. TM educated on dressing, steri strips, and vaccine. Discharge: -Provider consulted: Alesha and advised to cleanse, ice, place steristrips, telfa pad, and koban on L ring finger. -Patient verbalizes they feel able to perform their job duties at 100%. -Patient education: educated on keeping finger clean and dry and wrapping it in koban to keep protected. TM provided supplies to do at home -Follow up as needed. -Follow up Tuesday (12/14/2021) with Nurse Hernandez at [facility]. -[facility] referral to [facility]. -Advised to seek emergency medical attention if needed. Notes: TM tolerated well. -Lauren Macedo, RN documented in this encounter Plan of Treatment Not on file documented as of this encounter Visit Diagnoses Diagnosis Alteration in comfort associated with pain- Primary documented in this encounter Care Teams Data Entry Operator Relationship Specialty Start Date End Date Noah Wagner[address] [address] PCP - General Family Medicine 04/07/20 documented as of this encounter
--- OUTSIDE RECORDS SUMMARY | 2024-04-05 11:53 | XMS_ITS | Encounter Summary ---
Author Organization [facility] Address [address] [place], [place] [address] Phone CareEverywhereSuppor [email or web address] Care Team Providers Care Stone Operator Name Role Phone Noah Wagner Primary Care Provider [phone] Encounter Details Date Type Department Care Team (Late st Contact Info) Description 09/15/[address] [place] [address] Mary Dwyer RN [address] [place] [address] Social History Tobacco Use Types [...] Telephone Encounter - Mary Dwyer RN - 09/15/2023 2:50 PM EDT I spoke to RN at Dr. Barillas office and patient has already requested medical release. Their office will fax note to [facility] once obtained. I sent ISATU to PCP office earlier today for medical notes and release. Will follow up with TM on Tuesday and notify provider next week if releases obtained. Mary Dwyer RN documented in this encounter Plan of Treatment Not on file documented as of this encounter Visit Diagnoses Not on filedocumented in this encounter Care Teams Stone Operator Relationship Specialty Start Date End Date Noah Wagner [address] [address] PCP - General Family Medicine 04/07/20 documented as of this encounter
--- OUTSIDE RECORDS SUMMARY | 2024-04-05 11:54 | XMS_ITS | Encounter Summary ---
Author Organization [facility] Address [address] [place], [place] [address] Phone CareEverywhereSuppor [email or web address] Care Team Providers Care Endoscopy Technican Name Role Phone Unavailable Primary Care Provider Unavailabl e Reason for Visit * Reason Onset Date Comments Med Refill 09/21/2018 Encounter Details Date Type Department Care Team (Late st Contact Info) Description 09/21/[address] [place] [address] Mary Dwyer, RN [address] [place] [address] Social History Tobacco Use Types Packs/Day Years Used Date Smoking Tobacco: Every Day Smokeless Tobacco: Never Sex and Gender Information Value Date Recorded Sex Assigned at Not on file Legal Sex Male 9:26 AM CDT Gender Identity Not on file Sexual Orientation Not on file documented as of this encounter Miscellaneous Notes * Telephone Encounter - Mary Dwyer RN - 09/21/2018 11:23 AM EDT TM requesting refill on Tramadol. Last dose last week per TM. TM wants px filled at [facility]. I told him I would call him if we are not going to refill the px. Mary Dwyer RN documented in this encounter Plan of Treatment Not on file documented as of this encounter Visit Diagnoses Not on filedocumented in this encounter
--- OUTSIDE RECORDS SUMMARY | 2024-04-05 11:54 | XMS_ITS | Encounter Summary ---
Author Organization [facility] Address [address] [place], [place] [address] Phone CareEverywhereSuppor [email or web address] Care Team Providers Care Bilingual Inside Sales Representative Name Role Phone Unavailable Primary Care Provider Unavailabl e Encounter Details Date Type Department Care Team (Late st Contact Info) Description 09/21/[address] [place] [address] Mary Dwyer RN [address] [place] [address] Social History Tobacco Use Types Packs/Day Years Used Date Smoking Tobacco: Every Day Smokeless Tobacco: Never Sex and Gender Information Value Date Recorded Sex Assigned at Not on file Legal Sex Male 9:26 AM CDT Gender Identity Not on file Sexual Orientation Not on file documented as of this encounter Miscellaneous Notes * Telephone Encounter - Mary Dwyer RN - 09/21/2018 9:16 AM EDT left to see if Dr. Perales's office has scheduled an appt to review denial with PA for Specialist. TM was to have an TERESA this week. TM asked to call with an update. Mary Dwyer RN documented in this encounter Plan of Treatment Not on file documented as of this encounter Visit Diagnoses Not on filedocumented in this encounter
--- OUTSIDE RECORDS SUMMARY | 2024-04-05 11:54 | XMS_ITS | Encounter Summary ---
Author Organization [facility] Address [address] [place], [place] [address] Phone CareEverywhereSuppor [email or web address] Care Team Providers Care Executive Vice President And Chief Operating Officer Name Role Phone Unavailable Primary Care Provider Unavailabl e Reason for Visit * Reason Comments Incentive - Biometric Screening Bio Scre ening Encounter Details Date Type Department Care Team (Late st Contact Info) Description 10/17/2018 8:30 AM EDT Biometric [facility] [address] [place] [address] [address] [place] [address] Pepito Quiroz MD [address] [place] [address] Social History Tobacco Use Types [...] Sign Reading Time Taken Comments Blood Pressure 199/84 10/17/2018 9:58 AM EDT Pulse 80 10/17/2018 9:58 AM EDT Temperature - - Respiratory Rate - - Oxygen Saturation - - Inhaled Oxygen Concentration - - Weight 78.5 kg (173 lb) 10/17/2018 9:58 AM EDT Height 172.7 cm (5' 8 ) 10/17/2018 9:58 AM EDT Body Mass Index 26.3 10/17/2018 9:58 AM EDT documented in this encounter Nursing Notes * Luzma Burton MA - 10/17/2018 8:30 AM EDT Campaign Mass Entry Documentation Event Performed by: [facility] Staff Packaging Engineer Completed by: Luzma Burton MA Arjun Melton is a 53 y.o. male who participated in a Incentive-Biometric Screening (Bio Screening) held on 10/17/2018. Height: 5' 8 Weight: 173 lb BP: (!) 199/84 Heart Rate: 80 Waist Circumference: 38 in. Body Fat Mass: 26.3 Visit Results: Results for orders placed or performed in visit on 10/17/18 POCT CardioChek Lipid and Glucose Result Value Ref Range Cholesterol, POC 200 200 mg/dL HDL, POC 39 (A) 50 - 110 mg/dL Triglycerides, POC 457 (A) 150 mg/dL Glucose, POC 120 (A) 65 - 99 mg/dL Non HDL Cholesterol, POC 162 (A) 130 (kimmy) Total Cholesterol/HDL, POC 5.2 (A) 3.6 (kimmy) Cholestech Glucose POC IQC Yes, verified internal control performed correctly. Biometrics Results Reviewed By: [facility] Health Staff documented in this encounter Plan of Treatment Not on file documented as of this encounter Procedures Procedure Name Priority Date/Time Associated Diagnosis Comments POCT CARDIOCHEK LIPID AND GLUCOSE Routine 10/17/2018 documented in this encounter Results * (ABNORMAL) POCT CardioChek Lipid and Glucose (10/17/2018) Cholesterol, POC 200 <=200 mg/dL HDL, POC 39(A) 50 - 110 mg/dL Triglycerides, POC 457(A) <=150 mg/dL Glucose, POC 120(A) 65 - 99 mg/dL Non HDL Cholesterol, POC 162(A) <=130 (kimmy) Total Cholesterol/HD L, POC 5.2(A) <=3.6 (kimmy) Cholestech Lipid LDL IQC Yes, verified internal control performed correctly. Blood (Blood, Capillary) us Pepito Quiroz MD POINT OF CARE TEST ORDERABLE S Final Result documented in this encounter Visit Diagnoses Not on filedocumented in this encounter
--- OUTSIDE RECORDS SUMMARY | 2024-04-05 11:54 | XMS_ITS | Encounter Summary ---
Author Organization [facility] Address [address] [place] [phone] Phone CareEverywhereSuppor Care Team Providers Care Patternmaker Pressure Cast Name Role Phone Unavailable Primary Care Provider Unavailabl e Encounter Details Date Type Department Care Team (Late st Contact Info) Description 06/22/[address] [place] [address] Jyothi Dickerson RN [address] [place] [address] Social History Tobacco Use Types Packs/Day Years Used Date Smoking Tobacco: Every Day Smokeless Tobacco: Never Sex and Gender Information Value Date Recorded Sex Assigned at Not on file Legal Sex Male 9:26 AM CDT Gender Identity Not on file Sexual Orientation Not on file documented as of this encounter Progress Notes * Jyothi Dickerson RN - 06/22/2018 8:44 AM EST Note to file: TM GL indicated they believed he was exceeding his IRs. A line call was requested and asked a) confirm IRs not being exceeded, and 2) what coaching would be beneficial to TM. See line call report in Media attachment. TM is not exceeding IRs and no coaching recommendations as it appears TM is performing his process as he should. See attached line call report. cmck REPAIRER documented in this encounter Plan of Treatment Not on file documented as of this encounter Visit Diagnoses Not on filedocumented in this encounter
--- OUTSIDE RECORDS SUMMARY | 2024-04-05 11:54 | XMS_ITS | Encounter Summary ---
Author Organization [facility] Address [address] [place], [place] [address] Phone CareEverywhereSuppor [email or web address] Care Team Providers Care Sustainability Project Manager Name Role Phone Unavailable Primary Care Provider Unavailabl e Encounter Details Date Type Department Care Team (Late st Contact Info) Description 10/12/[address] [place] [phone] Mary Dwyer RN [address] [place] [address] Social History Tobacco Use Types Packs/Day Years Used Date Smoking Tobacco: Every Day Smokeless Tobacco: Never Sex and Gender Information Value Date Recorded Sex Assigned at Not on file Legal Sex Male 9:26 AM CDT Gender Identity Not on file Sexual Orientation Not on file documented as of this encounter Miscellaneous Notes * Telephone Encounter - Mary Dwyer RN - 10/12/2018 12:50 PM EDT Called in px per V>O.- DR. Murphy. Called to [facility]. Px: Tramadol 50 mg 1 PO Q HS prn for chronic neck pain. # 20 no RF. TM aware that [facility] called in px today. documented in this encounter Plan of Treatment Not on file documented as of this encounter Visit Diagnoses Not on filedocumented in this encounter
--- OUTSIDE RECORDS SUMMARY | 2024-04-05 11:54 | XMS_ITS | Encounter Summary ---
Author Organization [facility] Address [address] [place], [place] [address] Phone CareEverywhereSuppor [email or web address] Care Team Providers Care Automobile Service Writer Name Role Phone Noah Wagner Primary Care Provider [phone] Encounter Details Date Type Department Care Team (Late st Contact Info) Description 03/20/2021 Telephone [address] [place] [address] Alesha Alamo PA [address] [place] [address] Social History Tobacco Use Types Packs/Day Years Used Date Smoking Tobacco: Every Day Smokeless Tobacco: Never Intimate Partner Violence Answer Date R ecorded Insults You Not on file 08/27/2020 Threatens You Not on file 08/27/2020 Screams at You Not on file 08/27/2020 Physically Hurt Not on file 08/27/2020 Intimate Partner Violence Score Not on file 08/27/2020 Depression Answer Date Recorded PHQ-9 Total Score 0 04/28/2020 Stress Answer Date Recorded Stress in your Life 0 06/27/2020 Dealing with Stress Not on file 06/27/2020 Sex and Gender Information Value Date Recorded Sex Assigned at Not on file Legal Sex Male 9:26 AM CDT Gender Identity Not on file Sexual Orientation Not on file documented as of this encounter Miscellaneous Notes * Telephone Encounter - ISAÍAS Holloway - 03/20/2021 1:27 PM EDT Jyothi Dickerson call and requested order WH for TM (Arjun Melton) who will be going 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 Order generated and sent to [facility]. Alesha Alamo PA-C documented in this encounter Plan of Treatment Not on file documented as of this encounter Visit Diagnoses Diagnosis Physical deconditioning- Primary Muscular wasting and disuse atrophy, not elsewhere classified documented in this encounter Care Teams Automobile Service Writer Relationship Specialty Start Date End Date Noah Wagner [address] [address] PCP - General Family Medicine 04/07/20 documented as of this encounter
--- OUTSIDE RECORDS SUMMARY | 2024-04-05 11:54 | XMS_ITS | Encounter Summary ---
Author Organization [facility] Address [address] [place] [address] Phone CareEverywhereSuppor [email or web address] Care Team Providers Care Quality Compliance Coordinator Name Role Phone Unavailable Primary Care Provider Unavailabl e Encounter Details Date Type Department Care Team (Late st Contact Info) Description 09/21/[address] [place] [phone] Mary Dwyer RN [address] [place] [address] Social History Tobacco Use Types Packs/Day Years Used Date Smoking Tobacco: Every Day Smokeless Tobacco: Never Sex and Gender Information Value Date Recorded Sex Assigned at Not on file Legal Sex Male 9:26 AM CDT Gender Identity Not on file Sexual Orientation Not on file documented as of this encounter Miscellaneous Notes * Telephone Encounter - Mary Dwyer RN - 09/21/2018 11:19 AM EDT TM called with update. States he did have a VM from Dr. Perales's office instructing him that if he wants to see the PA he can but they do not have anything else to offer him at this time. Genex letter sent to Their office to review and spoke with [facility]'s special event assistant a few times. TM states he had an TERESA and no recommendations for surgery. No appeal or call from Jason 's office. TM has not been in PT. TM Reports 20-30 % improvement in shoulder with PT but neck pain the same. TM's phone call reviewed with Dr. Murphy and she recommends [facility] f/u 3 weeks. Scheduled for 10/12 and TM aware of apt . He will notify his GL. Mary Dwyer RN documented in this encounter Plan of Treatment Not on file documented as of this encounter Visit Diagnoses Not on filedocumented in this encounter
--- OUTSIDE RECORDS SUMMARY | 2024-04-05 11:54 | XMS_ITS | Encounter Summary ---
Author Organization [facility] Address [address] [place], [place] [id number] Phone CareEverywhereSuppor [email or web address] Care Team Providers Care Jewelry Setter Name Role Phone Noah Wagner Primary Care Provider [phone] Reason for Visit * Reason Comments Eye Exam Encounter Details Date Type Department Care Team (Late st Contact Info) Description 09/17/2020 4:30 PM EDT Office Visit [facility] [address] [place] [address] Librado Rodríguez, MELISSA [address] [place] [address] Myopia of both eyes (Primary Dx) Social History Tobacco Use Types [...] as of this encounter Progress Notes * Librado Rodríguez, MELISSA - 09/17/2020 4:30 PM EDT Subjective: Arjun Melton is a 54 y.o. male. Chief Complaint Eye Exam HPI Personal eye exam; Needs to update personal glasses; Prefers distance only (takes off to read); Might be interested in SV custom reading glasses too Last edited by Librado Rodríguez, OD on 09/17/2020 5:24 PM. (History) -eye fatigue after reading on phone for 10 to 15 minutes; Cannot read for long period of time ROS Negative for: Constitutional, Gastrointestinal, Neurological, Skin, Genitourinary, Musculoskeletal,HENT, Endocrine, Cardiovascular, Eyes, Respiratory, Psychiatric, Allergic/Imm, Heme/Lymph Last edited by Librado Rodríguez, OD on 09/17/2020 4:11 PM. (History) Visual Acuity Visual Acuity (Snellen - Linear) Right Left Dist sc 20/60 20/60 Dist cc 20/20 20/20 Near cc 20/30 20/30 Pupils Pupils Pupils Dark Light APD Right PERRL 6 2 None Left PERRL 6 2 None Extraocular Movement Extraocular Movement Right Left Full, Ortho Full, Ortho Confrontational Visual Pantoja Visual Pantoja Left Right Full Full Tonometry Tonometry (Non-contact air puff, 4:41 PM) Right Left Pressure 16 18 Color Color Right Left Ishihara 8/8 8/8 Wearing Rx Wearing Rx Sphere Cylinder [place] Right -1.75 -1.25 155 Left -1.25 -1.25 035 Keratometry Keratometry (Automated) K1 [place] K2 [place] Mires Right 42.50 151 43.75 061 Normal Left 43.00 030 44.25 120 Normal Manifest Refraction Manifest Refraction Sphere Cylinder [place] Dist VA Add Near VA Right -1.25 -1.00 155 20/20 +2.00 J1 Left -1.25 -1.50 035 20/20 +2.00 J1 Eyeglass Final Rx Eyeglass Final Rx Sphere Cylinder [place] Dist VA Right -1.25 -1.00 155 20/20 Left -1.25 -1.50 035 20/20 Type: SVL - distance Expiration Date: 09/18/2021 Eyeglass Final Rx #2 Sphere Cylinder [place] Dist VA Right +0.75 -1.00 155 20/20 Left +0.75 -1.50 035 20/20 Type: SVL - near Expiration Date: 09/18/2021 Dilation Dilation Declined DFE today Main Ophthalmology Exam External Exam Right Left External Normal Normal Slit Lamp Exam Right Left Lids/Lashes Normal Normal Conjunctiva/Sclera White and quiet White and quiet Cornea Clear Clear Anterior Chamber Deep and quiet Deep and quiet Iris Round and reactive Round and reactive Lens Clear Clear Vitreous Normal Normal Fundus Exam Right Left Disc Normal Normal C/D Ratio 0.3 0.3 Macula Flat and Intact Flat and Intact Vessels Normal Normal Arjun was seen today for eye exam. Diagnoses and all orders for this visit: Myopia of both eyes (Primary) - new glasses prescription - continue to wear distance glasses for driving - SV reading glasses Rx given RTC 1 year or sooner if vision changes Librado Rodríguez OD documented in this encounter Plan of Treatment Not on file documented as of this encounter Visit Diagnoses Diagnosis Myopia of both eyes- Primary documented in this encounter Care Teams Jewelry Setter Relationship Specialty Start Date End Date Noah Wagner [address] [place] [address] PCP - General Family Medicine 04/07/20 documented as of this encounter
--- OUTSIDE RECORDS SUMMARY | 2024-04-05 11:54 | XMS_ITS | Encounter Summary ---
Author Organization [facility] Address [address] [place], [place] [address] Phone CareEverywhereSuppor [email or web address] Care Team Providers Care Mathematics Lecturer Name Role Phone Unavailable Primary Care Provider Unavailabl e Encounter Details Date Type Department Care Team (Late st Contact Info) Description 09/05/[address] [place] [address] Erlinda Alejandro, SENIOR COMMUNICATIONS SPECIALIST [address] [place] [address] Social History Tobacco Use Types Packs/Day Years Used Date Smoking Tobacco: Every Day Smokeless Tobacco: Never Sex and Gender Information Value Date Recorded Sex Assigned at Not on file Legal Sex Male 9:26 AM CDT Gender Identity Not on file Sexual Orientation Not on file documented as of this encounter Miscellaneous Notes * Telephone Encounter - Erlinda Alejandro RN - 09/05/2018 9:22 AM EDT Called in refill for tramadol 50 mg 1 tab QD as needed for chronic pain. Dispense 20 tablets with no refills. Per Dr. Murphy to [facility] pharmacy in [facility]. Erlinda Alejandro RN documented in this encounter Plan of Treatment Not on file documented as of this encounter Visit Diagnoses Not on filedocumented in this encounter
--- OUTSIDE RECORDS SUMMARY | 2024-04-05 11:54 | XMS_ITS | Encounter Summary ---
Author Organization [facility] Address [address] [place] [phone] Phone CareEverywhereSuppor Care Team Providers Care Chemical Detection Expert Name Role Phone Unavailable Primary Care Provider Unavailabl e Encounter Details Date Type Department Care Team (Late st Contact Info) Description 07/31/[address] [place] [address] Mary Dwyer, RN [address] [place] [address] Social History Tobacco Use Types Packs/Day Years Used Date Smoking Tobacco: Every Day Smokeless Tobacco: Never Sex and Gender Information Value Date Recorded Sex Assigned at Not on file Legal Sex Male 9:26 AM CDT Gender Identity Not on file Sexual Orientation Not on file documented as of this encounter Miscellaneous Notes * Telephone Encounter - Mary Dwyer RN - 07/31/2018 2:52 PM EDT TM called stating he has not heard from approval on Epidural. TM has not f/u with Andria Hernandez. TM states you told him to call if he has not heard about approval. TM regular duty / Indef. Restrictions. TM offered to transfer to [facility] and he declined b/c he only has 5 minutes to call. TM told to call Andria Hernandez tomorrow and to let me know what she tells him or if she does not call him back. TM voiced understanding. TM does report increase in pain but not pain scale reviewed. Mary Dwyer RN documented in this encounter Plan of Treatment Not on file documented as of this encounter Visit Diagnoses Not on filedocumented in this encounter
--- OUTSIDE RECORDS SUMMARY | 2024-04-05 11:54 | XMS_ITS | Encounter Summary ---
Author Organization [facility] Address [address] [place] [address] Phone CareEverywhereSuppor [email or web address] Care Team Providers Care Fashion Editor Name Role Phone Unavailable Primary Care Provider Unavailabl e Encounter Details Date Type Department Care Team (Late st Contact Info) Description 09/12/[address] [place] [address] Mary Dwyer, FROYLAN [address] [place] [address] Social History Tobacco Use Types Packs/Day Years Used Date Smoking Tobacco: Every Day Smokeless Tobacco: Never Sex and Gender Information Value Date Recorded Sex Assigned at Not on file Legal Sex Male 9:26 AM CDT Gender Identity Not on file Sexual Orientation Not on file documented as of this encounter Miscellaneous Notes * Telephone Encounter - Mary Dwyer RN - 09/12/2018 5:53 AM EDT Call from TM yesterday, states he has an TERESA scheduled next Tuesday thru Worker Andria De La Paz.He heard from [facility] about getting into see the PA. I left an additional message with [facility]'s donor relations manager, Fior to call me but that TM would prefer to f/u with Dr. Perales. I did fax the Genex letter, pain scale to Diaz's office last week. I will review this information with Dr. Murphy this am to see if TM needs f/u after TERESA time frame. I told TM I would f/u with him this week. Mary Dwyer RN documented in this encounter Plan of Treatment Not on file documented as of this encounter Visit Diagnoses Not on filedocumented in this encounter
--- OUTSIDE RECORDS SUMMARY | 2024-04-05 11:54 | XMS_ITS | Encounter Summary ---
Author Organization [facility] Address [address] [place], [place] [address] Phone CareEverywhereSuppor [email or web address] Care Team Providers Care All Source Intelligence Name Role Phone Noah Wagner Primary Care Provider [phone] Encounter Details Date Type Department Care Team (Late st Contact Info) Description 04/13/2021 Telephone [facility] [address] [place] [address] Martha Zelaya, FROYLAN [address] [place] [address] Social History Tobacco Use Types [...] encounter Miscellaneous Notes * Telephone Encounter - Martha Zelaya RN - 04/13/2021 6:46 AM EST 04/13: TM notified of negative covid-19 results. TM reports continued congestion, RODRIGUEZ, runny nose and cough. TM reports is having trouble receiving calls from covid line. TM gave alternate phone number to try; [phone]. TM scheduled for 6 day post test per Bartolo METZ instructions. BARBARA RN RONMENTAL STUDIES DEPARTMENT CHAIR documented in this encounter Plan of Treatment Not on file documented as of this encounter Visit Diagnoses Not on filedocumented in this encounter Care Teams All Source Intelligence Relationship Specialty Start Date End Date Noah Wagner Formerly named [facility] [address] [address] PCP - General Family Medicine 04/07/20 documented as of this encounter
--- OUTSIDE RECORDS SUMMARY | 2024-04-05 11:54 | XMS_ITS | Encounter Summary ---
Author Organization [facility] Address [address] [place] [address] Phone CareEverywhereSuppor [email or web address] Care Team Providers Care Bulk Cooler Installer Name Role Phone Unavailable Primary Care Provider Unavailabl e Encounter Details Date Type Department Care Team (Late st Contact Info) Description 06/15/[address] [place] [address] Erlinda Alejandro, PUNCH PRESS OPERATOR HELPER [address] [place] [address] Social History Tobacco Use Types Packs/Day Years Used Date Smoking Tobacco: Every Day Smokeless Tobacco: Never Sex and Gender Information Value Date Recorded Sex Assigned at Not on file Legal Sex Male 9:26 AM CDT Gender Identity Not on file Sexual Orientation Not on file documented as of this encounter Miscellaneous Notes * Telephone Encounter - Erlinda Alejandro RN - 06/15/2018 12:39 PM EST TM called to ask about his RX. Called [facility] pharmacy, they state that no more than 7 can be dispensed as ordered d/t policy. Per Dr. Murphy changed order to BID disp. 14 with no refills. Spoke with pharmacist. Attempted to call TM to notify x 2 no success. Called Renea Nicole RN who is going to pass on the message. She will reinforce with TM that he cannot take the medication while working and that he can take BID on weekends, but only at bedtime while working. Erlinda Alejandro RN BATH MIXER documented in this encounter Plan of Treatment Not on file documented as of this encounter Visit Diagnoses Not on filedocumented in this encounter
--- OUTSIDE RECORDS SUMMARY | 2024-04-05 11:54 | XMS_ITS | Encounter Summary ---
Author Organization [facility] Address [address] [place] [address] Phone CareEverywhereSuppor [email or web address] Care Team Providers Care Data Assistant Name Role Phone Unavailable Primary Care Provider Unavailabl e Encounter Details Date Type Department Care Team (Late st Contact Info) Description 09/13/[address] [place] [address] Mary Dwyer RN [address] [place] [address] Social History Tobacco Use Types Packs/Day Years Used Date Smoking Tobacco: Every Day Smokeless Tobacco: Never Sex and Gender Information Value Date Recorded Sex Assigned at Not on file Legal Sex Male 9:26 AM CDT Gender Identity Not on file Sexual Orientation Not on file documented as of this encounter Miscellaneous Notes * Telephone Encounter - Mary Dwyer RN - 09/13/2018 8:17 AM EDT left with TM that I talked with Fela at Dr. Perlaes's office again yesterday. She was statingif TM wanted to proceed with personal insurance for injections he could do that. I did review that TM was doing PT/traction. I reviewed with Dr. Murphy and our office would like to have someone in Diaz's office review Genex denial letter. Office to review this informaiton with Diaz's PA and see if an apt can be scheduled. I left a VM on 's number listed this am to call me when here hears from office and if I hear from Fela I will let TM know. Pending TERESA next week. Mary Dwyer RN documented in this encounter Plan of Treatment Not on file documented as of this encounter Visit Diagnoses Not on filedocumented in this encounter
--- OUTSIDE RECORDS SUMMARY | 2024-04-05 11:54 | XMS_ITS | Encounter Summary ---
Author Organization [facility] Address [address] [place], [place] [id number] Phone CareEverywhereSuppor [email or web address] Care Team Providers Care Patient Accounts Clerk Name Role Phone Unavailable Primary Care Provider Unavailabl e Encounter Details Date Type Department Care Team (Late st Contact Info) Description 09/21/[address] [place] [address] Mary Dwyer, RN [address] [place] [address] Social History Tobacco Use Types Packs/Day Years Used Date Smoking Tobacco: Every Day Smokeless Tobacco: Never Sex and Gender Information Value Date Recorded Sex Assigned at Not on file Legal Sex Male 9:26 AM CDT Gender Identity Not on file Sexual Orientation Not on file documented as of this encounter Miscellaneous Notes * Telephone Encounter - Mary Dwyer RN - 09/21/2018 4:34 PM EDT Called in tramadol 50 mg 1 tablet PO q day prn for chronic pain. #[address] Murphy. Called to Qian villalba at [facility] . VM left with TM that I called it in and to address additional requests at f/u apt in a few weeks. Mary Dwyer RN documented in this encounter Plan of Treatment Not on file documented as of this encounter Visit Diagnoses Not on filedocumented in this encounter
--- OUTSIDE RECORDS SUMMARY | 2024-04-05 11:54 | XMS_ITS | Encounter Summary ---
Author Organization [facility] Address [address] [place], [place] [phone] Phone CareEverywhereSuppor [email or web address] Care Team Providers Care Lace Sewer Name Role Phone Unavailable Primary Care Provider Unavailabl e Encounter Details Date Type Department Care Team (Late st Contact Info) Description 07/18/[address] [place] [address] Erlinda Alejandro, HOOKER OFF [address] [place] [address] Social History Tobacco Use Types Packs/Day Years Used Date Smoking Tobacco: Every Day Smokeless Tobacco: Never Sex and Gender Information Value Date Recorded Sex Assigned at Not on file Legal Sex Male 9:26 AM CDT Gender Identity Not on file Sexual Orientation Not on file documented as of this encounter Miscellaneous Notes * Telephone Encounter - Erlinda Alejandro RN - 07/18/2018 9:07 AM EST Called in refill for tramadol 50 mg 1 tab QD as needed for chronic pain. Dispense 20 tablets with no refills. Per Dr. Murphy to [facility] pharmacy in [facility]. Erlinda Alejandro RN SCIENCE INSTRUCTOR documented in this encounter Plan of Treatment Not on file documented as of this encounter Visit Diagnoses Not on filedocumented in this encounter
--- OUTSIDE RECORDS SUMMARY | 2024-04-05 11:54 | XMS_ITS | Encounter Summary ---
Author Organization [facility] Address [address] [place], [place] [phone] Phone CareEverywhereSuppor [email or web address] Care Team Providers Care Calendering Supervisor Name Role Phone Noah Wagner Primary Care Provider [phone] Reason for Visit * Reason Comments Screening-Infectious Disease Encounter Details Date Type Department Care Team (Late st Contact Info) Description 04/07/2021 12:30 PM EST Telemedicine [facility] [address] [place] [address] Bartolo Marino PA [address] [place] [address] Exposure to severe acute respiratory syndrome coronavirus 2 (SARS-CoV-2) (Primary Dx); Cough; Shortness of breath; Fatigue, unspecified type; Sore throat; Nasal congestion; Nonintractable headache, unspecified chronicity pattern, unspecified headache type; Diarrhea, unspecified type Social History Tobacco Use Types [...] on file documented as of this encounter Patient Instructions * Patient Instructions* ISAÍAS Randhawa - 04/07/2021 12:30 PM EST No work while pending test results, if tested onsite clinic will call you when results received from lab, if tested offsite contact RN line as soon as your results are available, you will need a copyof results to send in. Stay well hydrated, use OTC medications for symptoms as needed. Follow all CDC and local guidelines. Self quarantine at home, while pending test act as though you are covid positive, only leaving home for emergency medical care, wear face covering if you must leave your home to seek care, notify care team that you are pending covid test. To ER as needed for worsening. ERMAN documented in this encounter Progress Notes * ISAÍAS Randhawa - 04/07/2021 12:30 PM EST TELEHEALTH VISIT: Today's visit was conducted via telehealth using audio only (telephone) due to cancellation of non-essential in person visits in response to the CoVid-19 pandemic. TM consented to the telehealth process at onset of visit by responding to the following statements: I understand that telehealth has certain limitations regarding diagnosis and treatment of medical conditions, and I consent to participate in a telehealth visit today. Response:yes I acknowledge that I can receive a copy of the [facility] Notice of Privacy Practices from the [employer] website ([email or web address]) and that my protected health information may only be shared as outlined in that Notice. Response:yes I understand that this Consent for Treatment is valid from today's date until: the provider-patientrelationship is terminated; a new healthcare senior human resources representative is appointed; or I revoke consent. Response: yes Are you currently in the state of [place]? yes Are you in a private space, or a space where you feel comfortable discussing your health care? yes Subjective: Arjun Melton is a 55 y.o. male. Chief Complaint: Chief Complaint Patient presents with ??? Screening-Infectious Disease History Reviewed: The following portions of the patient's chart were reviewed in this encounter and updated as appropriate: Provider screening after covid-19 testing. Exposure to covid-19 positive or presumptive (pending test) individual? Yes, describe: Jaron Lewis04/07/21 Have you tested positive for covid-19? No Received covid-19 vaccine? (if yes include meter/relay technician, date of doses) yes, 1st juan carlosa was in december Received flu vaccine this year? yes Most recent covidSHIELD onsite screening saliva test and result? 04/06/21 and negative Symptoms check below: Cough? Yes, describe: productive, comes and goes SOA or difficulty breathing? Yes Fever or chills? No Fatigue? Yes Body aches? No Sore throat? Yes Congestion or runny nose? Yes, congestion New loss of taste or smell? No Headache? Yes Nausea or vomiting? No Diarrhea? Yes Symptom onset? 04/06/21 Review of Systems See HPI Visit Vitals Smoking Status Current Every Day Smoker Objective: Physical Exam No exam due to telephone only visit. Assessment/Plan: Diagnoses and all orders for this visit: Exposure to severe acute respiratory syndrome coronavirus 2 (SARS-CoV-2) Cough Shortness of breath Fatigue, unspecified type Sore throat Nasal congestion Nonintractable headache, unspecified chronicity pattern, unspecified headache type Diarrhea, unspecified type TM has too many symptoms to be in DATP. Covid-19 test to be performed at [facility] by [facility] following provider telephone visit andscreening. Test to be sent to [facility] lab. If negative, TM will need 6 day post exposure test to be scheduled on 04/13/21. ERMAN documented in this encounter Plan of Treatment Not on file documented as of this encounter Visit Diagnoses Diagnosis Exposure to severe acute respiratory syndrome coronavirus 2 (SARS-CoV-2)- Primary Cough Shortness of breath Fatigue, unspecified type Sore throat Acute pharyngitis Nasal congestion Other diseases of nasal cavity and sinuses Nonintractable headache, unspecified chronicity pattern, unspecified headache type Diarrhea, unspecified type documented in this encounter Care Teams Calendering Supervisor Relationship Specialty Start Date End Date Noah Wagner [address] [place] [address] [facility] [id number] PCP - General Family Medicine 04/07/20 documented as of this encounter
--- OUTSIDE RECORDS SUMMARY | 2024-04-05 11:54 | XMS_ITS | Encounter Summary ---
Author Organization [facility] Address [address] [place], [place] [address] Phone CareEverywhereSuppor [email or web address] Care Team Providers Care Forester Silviculture Name Role Phone Unavailable Primary Care Provider Unavailabl e Encounter Details Date Type Department Care Team (Late st Contact Info) Description 09/07/[address] [place] [address] Mary Dwyer, RN [address] [place] [address] Social History Tobacco Use Types Packs/Day Years Used Date Smoking Tobacco: Every Day Smokeless Tobacco: Never Sex and Gender Information Value Date Recorded Sex Assigned at Not on file Legal Sex Male 9:26 AM CDT Gender Identity Not on file Sexual Orientation Not on file documented as of this encounter Miscellaneous Notes * Telephone Encounter - Mary Dwyer RN - 09/07/2018 3:01 PM EDT left with TM that I did fax the Genex Denial letter to Diaz's fleet assistant/air transportation provider yesterday. No call back today. Awaiting a call back about follow up apt. TM told if questions to call Diaz's office sooner. Mary Dwyer RN documented in this encounter Plan of Treatment Not on file documented as of this encounter Visit Diagnoses Not on filedocumented in this encounter
--- OUTSIDE RECORDS SUMMARY | 2024-04-05 11:54 | XMS_ITS | Encounter Summary ---
Author Organization [facility] Address [address] [place], [place] [address] Phone CareEverywhereSuppor [email or web address] Care Team Providers Care Fuselage Framer Name Role Phone Unavailable Primary Care Provider Unavailabl e Encounter Details Date Type Department Care Team (Late st Contact Info) Description 09/06/[address] [place] [address] Mary Dwyer, RN [address] [place] [address] Social History Tobacco Use Types Packs/Day Years Used Date Smoking Tobacco: Every Day Smokeless Tobacco: Never Sex and Gender Information Value Date Recorded Sex Assigned at Not on file Legal Sex Male 9:26 AM CDT Gender Identity Not on file Sexual Orientation Not on file documented as of this encounter Miscellaneous Notes * Telephone Encounter - Mary Dwyer RN - 09/06/2018 3:00 PM EDT Awaiting apt scheduling per Dr. Perales's office. Faxed Genex denial letter to Fior's attention at Diaz's office today. TM had GL email copy to our office. Dr. Murphy reviewed letter. left with Fior as well. Mary Dwyer rN documented in this encounter Plan of Treatment Not on file documented as of this encounter Visit Diagnoses Not on filedocumented in this encounter
--- OUTSIDE RECORDS SUMMARY | 2024-04-05 11:54 | XMS_ITS | Encounter Summary ---
Author Organization [facility] Address [address] [place], [place] [id number] Phone [email or web address] [email or web address] Care Team Providers Care Motor Runner Name Role Phone Noah Wagner Primary Care Provider [phone] Reason for Visit * Reason Comments Return to Work / Duty Encounter Details Date Type Department Care Team (Latest Contact Info) Description 03/09/2021 12:00 PM EDT Office Visit [place] [address] [facility] [address] [place] [address] Charu West, GARCIA [address] [place] [address] Encounter for other administrative examinations (Primary Dx); Hx of cardiac cath; Hx of heart artery stent Social History [...] Sign Reading Time Taken Comments Blood Pressure 128/82 03/09/2021 12:48 PM EDT Pulse 70 03/09/2021 12:48 PM EDT Temperature 36.4 ??C (97.5 ??F) 03/09/2021 12:48 PM E DT Respiratory Rate 18 03/09/2021 12:48 PM EDT Oxygen Saturation 99% 03/09/2021 12:48 PM EDT Inhaled Oxygen Concentration - - Weight - - Height - - Body Mass Index - - documented in this encounter Patient Instructions * Patient Instructions* Charu West NP - 03/09/2021 12:00 PM EDT RTW, released for 01/10 but in [facility] today with release. Cont care with specialist. TM to request copy of stent card as he did not receive one. F/u [facility] as needed. documented in this encounter Progress Notes * Charu West NP - 03/09/2021 12:00 PM EDT Subjective Arjun Melton is a 55 y.o. male who presents for personal return to work. WD ID: [id number] #: [id number] Employer: [employer] [place]: [id number] Description: PWT Shift: 1st Full-time GL and #: Gloria Maxwell LDW: 12/29/20 DOS: 12/30/20 PROCEDURE: Cardiac Stent SURGEON: Dr Hercules RELEASE: 01/11/21 Have you received the COVID-19 vaccination? Partially vaccinated next injection due: pending PMLOA. TM off work r/t cardiac stent. TM states he was having chest pain which prompted him to see [facility]. TM states stress test done there and results prompted him to be sent to [facility] for stent. TM states does not know where blockage was but states only one stent was placed via cath. TM states he was off work until 01/12/21 and has been working since. TM states he had some minor chest pain post stent which prompted an additional chemical stress test which was negative.TM states he was told likely GI. TM states no issues with working and denies further chest pain. TMstates he feels ready to continue working. Triage nurse: ASC RN HPI As noted in CC. TM doing well. No recent chest pain after the last stress gxt and addition of new med. 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 TM does not have a stent card states he was not provided oneafter his procedure. Denies any dizziness or shortness of air. Doing well at work. History Reviewed: Allergies Meds Problems Med Hx Surg Hx Objective Visit Vitals BP 128/82 Pulse 70 Temp 97.5 ??F Resp 18 SpO2 99% Smoking Status Current Every Day Smoker Review of Systems Constitutional: Negative. Respiratory: Negative for shortness of breath. Cardiovascular: Negative for chest pain. Neurological: Negative for dizziness, numbness and headaches. PHQ-9 Total Score: 0 (04/28/2020 8:22 AM) Physical Exam Vitals and nursing note reviewed. Constitutional: General: He is not in acute distress. Appearance: He is not diaphoretic. Cardiovascular: Rate and Rhythm: Normal rate and regular rhythm. Pulses: Normal pulses. Heart sounds: Normal heart sounds. Pulmonary: Effort: Pulmonary effort is normal. Breath sounds: Normal breath sounds. Skin: General: Skin is warm and dry. Capillary Refill: Capillary refill takes less than 2 seconds. Neurological: General: No focal deficit present. Mental Status: He is alert. Psychiatric: Mood and Affect: Mood normal. Assessment: ICD-10-CM ICD-9-CM 1. Encounter for other administrative examinations Z02.89 V68.89 2. Hx of cardiac cath Z98.890 V45.89 ECG 12 lead 3. Hx of heart artery stent Z95.5 V45.82 ECG 12 lead Orders Placed This Encounter Procedures ??? ECG 12 lead EKG - SR, no acute changes or ectopy. Patient Instructions RTW, released for 01/10 but in [facility] today with release. Cont care with specialist. TM to request copy of stent card as he did not receive one. F/u [facility] as needed. documented in this encounter Plan of Treatment Not on file documented as of this encounter Procedures Procedure Name Priority Date/Time Associated Diagnosis Comments ECG 12-LEAD Routine 03/09/2021 1:17 PM EDT Hx of cardiac cath Hx of heart artery stent documented in this encounter Results * ECG 12 lead (03/09/2021 1:17 PM EDT) Impressions Charu West, GARCIA - 03/09/2021 1:17 PM EDT SR, no acute changes or ectopy. us Charu West NP ECG ORDERABLES Final Resul t documented in this encounter Visit Diagnoses Diagnosis Encounter for other administrative examinations- Primary Hx of cardiac cath Hx of heart artery stent documented in this encounter Care Teams Motor Runner Relationship Specialty Start Date End Date Noah Wagner [address] [facility] [facility] [address] [place] [id number] PCP - General Family Medicine 04/07/20 documented as of this encounter
--- OUTSIDE RECORDS SUMMARY | 2024-04-05 11:54 | XMS_ITS | Encounter Summary ---
Author Organization [facility] Address [address] [place], [place] [address] Phone [email or web address] [email or web address] Care Team Providers Care Physiotherapy Aide Name Role Phone Noah Wagner Primary Care Provider Encounter Details Date Type Department Care Team (Late st Contact Info) Description 04/14/[address] [facility] [address] [place] [address] Martha Zelaya, FROYLAN [address] [place] [address] Social History Tobacco Use Types [...] Telephone Encounter - Martha Zelaya RN - 04/14/2021 11:00 AM EST Images from the original note were not included. Covid Screen Return To Work Arjun Melton Date of : 1965 6 digit Workday ID: [id number] Shift: 1st Shift Date of Call: 04/14/2021 Reason for test/leave status: TM had symptoms and TM had exposure TM result/release status: Negative test results If test results are negative and TM was off work for symptoms only: Due to your negative test result you are no longer eligible for GONZÁLEZ or paid administrative leave. If additional time is requiredoff work, you will need to speak with your herbicide service sales representative regarding coverage of that time. TM verbalized understanding and agreement of GONZÁLEZ Leave closure: Yes TM reports: Symptom free. Has TM had recent exposure to covid positive/presumptive positive? No Has the TM or any members of the household been told to Quarantine by Health Department? No Are there any pending covid tests or symptomatic family members within the household? No Has TM be fever free within the past 24 hours? Yes Disposition: -Nurse level return to work. -Per [facility] policy, GONZÁLEZ leave will end on 04/15 at 5am. Test Reason (Select all that apply): -No test required at this time. Notes: N/A Tm advised to call back with updates, changes or as needed. -Interviewer: Martha Zelaya 04/14/2021 ATOR STARTER documented in this encounter Plan of Treatment Not on file documented as of this encounter Visit Diagnoses Not on filedocumented in this encounter Care Teams Physiotherapy Aide Relationship Specialty Start Date End Date Noah Wagner[address] [address] PCP - General Family Medicine 04/07/20 documented as of this encounter
--- OUTSIDE RECORDS SUMMARY | 2024-04-05 11:54 | XMS_ITS | Encounter Summary ---
Author Organization [facility] Address [address] [place] [address] Phone [email or web address] [email or web address] Care Team Providers Care Refuge Worker Name Role Phone Noah Wagner Primary Care Provider [phone] Reason for Visit * Reason Onset Date Comments Screening-Infectious Disease 06/01/2021 Encounter Details Date Type Department Care Team (Late st Contact Info) Description [facility] [address] [facility] [address] [place] [address] Fior Mejía, FROYLAN Social History Tobacco Use Types Packs/Day Years [...] encounter Miscellaneous Notes * Telephone Encounter - Fior Mejaí RN - 06/01/2021 6:27 PM EST COVID-19 Initial Telephone Screening Documentation for Arjun Melton, date of : 1965, on 06/01/2021. 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 no Do you have any household members who work on site at [employer]? -No Type of mask worn by TM: Disposable Vaccine Status: Has TM been vaccinated?: Yes. TM is partially vaccinated. Information for Testing/contact tracing purposes: Date of : 1965 County of residence: [place] [address] Ethnicity: Race: White Social security number: [phone] 1. Is the TM on site at the time of the call: No. 2. Do you currently have, or have you had in the last 3 days any of the following symptoms? Significant: Shortness of breath Major: Fever greater than 100.4 Minor: Sore throat, Chills, Congestion, Runny nose, Headache, Nausea, Muscle pain/body aches and Fatigue Symptom Onset Date: 05/26/21 Reason for delayed reporting if applicable: TM talked to RN at [employer] and was given the instructions to test tomorrow to RTW. . Have you been seen by an outside provider for these symptoms?: Yes: 05/26/21 3. Have you ever tested positive for covid? -Yes. Date: 05/26/21 4. Last shield test: 05/04/21 5. In the last 14 days have you been in close contact (within 6 feet and for at least 15 minutes) with a confirmed or presumptive COVID-19 case ? This does not include asymptomatic individuals seeking testing. -No known exposure 6. In the last 14 days have you traveled outside of your country, state or province (other than foryour normal work commute and essential activities like travel to pharmacy, grocery shopping, doctor's office, to provide home care for others, etc.) requiring you to self-quarantine on your return asper your country, state or province travel restriction executive orders? - No 7. Do you have any underlying health conditions? - Yes: COPD, HTN Notes from call: TM became sx last week and was supposed to go in to work tomorrow to antigen test and RTW if neg. TM states he is SOA, fatigued, coughing, and has not been out of his house in a week. His is also covid pos. TMs dept is off tomorrow so he wasn't sure if he needed to take PTO ora day off without pay. TM is currently on steroids and abx. TM will continue his quar and NL will follow up with him 06/05. He is aware that if he is unable to RTW 06/06 he will transition to STD TM verbalized understanding and agreement of GONZÁLEZ Leave Expectations: Yes Disposition: -Per [facility] policy, GONZÁLEZ leave will end on 06/05/21 at 1159pm. -Tm advised to call back with updates, changes or as needed. Next step: Return to work appointment Next step date: 06/05/21 Anticipated RTW date: 06/06/21 -Interviewer: Fior Mejía, MSN, RN 06/01/2021 IGN LANGUAGE INSTRUCTOR IGN LANGUAGE INSTRUCTOR documented in this encounter Plan of Treatment Not on file documented as of this encounter Visit Diagnoses Not on filedocumented in this encounter Care Teams Refuge Worker Relationship Specialty Start Date End Date Noah Wagner [address] [place], [place] [phone] PCP - General Family Medicine 04/07/20 documented as of this encounter
--- OUTSIDE RECORDS SUMMARY | 2024-04-05 11:54 | XMS_ITS | Encounter Summary ---
Author Organization [facility] Address [address] [place], [place] [address] Phone [email or web address] [email or web address] Care Team Providers Care Mucking Machine Operator Name Role Phone Noah Wagner Primary Care Provider [phone] Encounter Details Date Type Department Care Team (Late st Contact Info) Description 04/08/2021 Telephone [facility] [address] [place] [address] Renea Kovacs, FROYLAN [address] [place] [address] Social History Tobacco Use Types [...] encounter Miscellaneous Notes * Telephone Encounter - Renea Kovacs RN - 04/08/2021 8:39 AM EST Attempted to call TM with negative test results, no answer, note from provider does state TM needs post exposure testing on 04/13/21. Left VM directing TM to call NL back at [phone]. Renea Kovacs, RN MBLER CRIMPER documented in this encounter Plan of Treatment Not on file documented as of this encounter Visit Diagnoses Not on filedocumented in this encounter Care Teams Mucking Machine Operator Relationship Specialty Start Date End Date Noah Wagner [address] [address] PCP - General Family Medicine 04/07/20 documented as of this encounter
--- OUTSIDE RECORDS SUMMARY | 2024-04-05 11:54 | XMS_ITS | Encounter Summary ---
Author Organization [facility] Address [address] [place] [address] Phone [email or web address] [email or web address] Care Team Providers Care First Helper Name Role Phone Bernard Noah Primary Care Provider [phone] Encounter Details Date Type Department Care Team (Late st Contact Info) Description 04/07/2021 Telephone [facility] [address] [place] [address] Ty Kovacs RN Social History Tobacco Use Types Packs/Day Years [...] encounter Miscellaneous Notes * Telephone Encounter - Ty Kovacs RN - 04/07/2021 9:48 AM EST COVID-19 Initial Telephone Screening Documentation for Arjun Melton, a 55 y.o. male on 04/07/2021. Arjun Melton Date of : 1965 6 digit Workday ID: [id number] Contact number: Is the TM on site at the time of the call: Yes. , TM called from their break room. 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 no Do you have any household members who work on site at [employer]? -No Type of mask worn by TM: Disposable Vaccine Status: Has TM been vaccinated?: Yes. TM is partially vaccinated. Type of vaccine: Moderna. Date of 1st dose of vaccination: December 2020 . Date of 2nd of vaccination: Pending . Information for Testing/contact tracing purposes: Date of : 1965 County of residence: [place] [id number] Ethnicity: Race: White Last 4 digits of social security #: [phone] E-mail address: Do not have one Symptom info: Do you currently have, or have you had in the last 3 days any of the following symptoms? Significant: None Major: None Minor: Headache and Nausea Symptom Onset Date: 04/06/21 Reason for delayed reporting if applicable: TM thought it was allergy related. Have you been seen by an outside provider for these symptoms?: No 1. Have you ever tested positive for covid? -No 2. Last shield test: 04/06/21 and it was negative 3. In the last 14 days have you been in close contact (within 6 feet and for at least 15 minutes) with a confirmed or presumptive COVID-19 case ? This does not include asymptomatic individuals seeking testing. -Work exposure: Name: Jaron Lewis Confirmed or suspected: Confirmed Last date of contact: 04/07/21 Was contact symptomatic at the time? Unsure When did contact develop symptoms? Unsure Date contact was tested: 04/06/21 Total duration of contact: 2 hours Proximity: within 2 feet Was caller wearing face covering? yes Was contact wearing face covering? ys Location: on the line 4. In the last 14 days have you traveled outside of your state or country? - No 5. Do you have any underlying health conditions? - Yes: HTN, Asthma, Allergies (outdoor) Notes from call: TM called to report he has had an exposure to someone who has tested positive for Covid. TM reports he spent on a couple of hours and was within 2 feet of him. TM verbalized understanding and agreement of GONZÁLEZ Leave Expectations: Yes Disposition: -TM scheduled for tele health with provider. -Covid-19 test pending from on site. -Administrative leave. -Advised TM to call the nurse line at [phone] as needed. -TM provided with the nurse line e-mail address and advised to send all appropriate documentation. -[employer] updated to match current status. -TM was sent standardized e-mail from the covid nurse line e-mail address detailing directions and info for all paperwork needed, upcoming testing, and appointments. -Tm advised to call back with updates, changes or as needed. Test reason from this call (Select all that apply): -TM is symptomatic and needs an initial test. -Interviewer: Ty Kovacs RN 04/07/2021, 9:48 AM ITY ENGINEER MEDICAL DEVICE documented in this encounter Plan of Treatment Not on file documented as of this encounter Visit Diagnoses Not on filedocumented in this encounter Care Teams First Helper Relationship Specialty Start Date End Date Noah Wagner [place] [address] [facility] [address] PCP - General Family Medicine 04/07/20 documented as of this encounter
--- OUTSIDE RECORDS SUMMARY | 2024-04-05 11:55 | XMS_ITS | Encounter Summary ---
Author Organization [facility] Address [address] [place] [address] Care Team Providers Care Commercial Loan Reviewer Name Role Phone Noah Wagner MD Primary Care Provider [phone] Reason for Referral * Diagnostic Imaging (Routine) - Closed Specialty Diagnoses / Procedures Referred By Contac t Referred To Contact Radiology Diagnoses Cervical spondylosis with radiculopathy Procedures MRI Cervical Spine Without Contrast Victoriano Perales MD [address] [place] [address] Phone: tel: fax: [facility] [address] [place] [address] Phone: tel: Referral ID Status Reason Start Date Expiration Date Visits Re quested Visits Authorized [id number] Closed 12/04/2019 12/03/2020 1 1 Encounter Details Date Type Department Care Team (Late st Contact Info) Description 12/04/2019 1:20 PM EDT Office Visit [facility]UROS[facility]ERY [address] [id number] Victoriano Perales MD [address] [place] [address] Cervical spondylosis with radiculopathy (Primary Dx); Tobacco abuse Social History Tobacco Use Types Packs/Day Years Used Date Smoking Tobacco: Every Day Cigarettes Smokeless Tobacco: Never Alcohol Use Standard Drinks/Week Comments Yes 0 (1 standard drink = 0.6 oz pur e alcohol) 1xweek Sex and Gender Information Value Date Recorded Sex Assigned at Not on file Legal Sex Male 1:03 PM EDT Gender Identity Not on file Sexual Orientation Not on file documented as of this encounter Last Filed Vital Signs Vital Sign Reading Time Taken Comments Blood Pressure - - Pulse - - Temperature 37 ??C (98.6 ??F) 12/04/2019 1:29 PM EDT Respiratory Rate 15 12/04/2019 1:29 PM EDT Oxygen Saturation - - Inhaled Oxygen Concentration - - Weight 74.4 kg (164 lb) 12/04/2019 1:29 PM EDT Height 172.7 cm (5' 8 ) 12/04/2019 1:29 PM EDT Body Mass Index 24.94 12/04/2019 1:29 PM EDT documented in this encounter Progress Notes * Victoriano Perales MD - 12/04/2019 1:20 PM EDT Patient: Arjun Melton : 1965 Primary Care Provider: Noah Wagner MD Requesting Provider: As above History Chief Complaint: Neck and bilateral shoulder pain. History of Present Illness: Mr. Melton is a 54-year-old gentleman who works at [employer] who is well-known to my service. On 05/22/2009 he underwent ACDF at C5-6. He did well but developed recurrent symptoms and on 09/08/15 he underwent ACDF at C4-5 with removal of old hardware. He was last seen in December of last year with complaints of neck pain extending into the right shoulder region. Those symptoms had begun after some work in May 2018. Symptoms were worse with head turning. Therapy and epidural injections were not helpful. I have recommended ACDF at C3-4 but that was not approved by Worker[employer]. His symptoms persist. He continues to work full-time. His surgery has now been approved as I understand it. He is smoking approximately 1 pack of tobacco daily which is less for him. Review of Systems Constitutional: Negative for activity change, appetite change, chills, diaphoresis, fatigue, fever and unexpected weight change. HENT: Negative for congestion, dental problem, drooling, ear discharge, ear pain, facial swelling, hearing loss, mouth sores, nosebleeds, postnasal drip, rhinorrhea, sinus pressure, sneezing, sore throat, tinnitus, trouble swallowing and voice change. Eyes: Negative for photophobia, pain, discharge, redness, itching and visual disturbance. Respiratory: Negative for apnea, cough, choking, chest tightness, shortness of breath, wheezing andstridor. Cardiovascular: Negative for chest pain, palpitations and leg swelling. Gastrointestinal: Positive for abdominal pain. Negative for abdominal distention, anal bleeding, blood in stool, constipation, diarrhea, nausea, rectal pain and vomiting. Endocrine: Negative for cold intolerance, heat intolerance, polydipsia, polyphagia and polyuria. Genitourinary: Negative for decreased urine volume, difficulty urinating, dysuria, enuresis, flank pain, frequency, genital sores, hematuria and urgency. Musculoskeletal: Positive for arthralgias and neck pain. Negative for back pain, gait problem, joint swelling, myalgias and neck stiffness. Skin: Negative for color change, pallor, rash and wound. Allergic/Immunologic: Negative for environmental allergies, food allergies and immunocompromised state. Neurological: Negative for dizziness, tremors, seizures, syncope, facial asymmetry, speech difficulty, weakness, light-headedness, numbness and headaches. Hematological: Negative for adenopathy. Does not bruise/bleed easily. Psychiatric/Behavioral: Negative for agitation, behavioral problems, confusion, decreased concentration, dysphoric mood, hallucinations, self-injury, sleep disturbance and suicidal ideas. The patientis not nervous/anxious and is not hyperactive. All other systems reviewed and are negative. The patient's past medical history, past surgical history, family history, and social history have been reviewed at length in the electronic medical record. Physical Exam: Temp 98.6 ??F (37 ??C) (Temporal) Resp 15 Ht 172.7 cm (68 ) Wt 74.4 kg (164 lb) BMI 24.94 kg/m?? CONSTITUTIONAL: Patient is well-nourished, pleasant and appears stated age. CV: Heart regular rate and rhythm without murmur, rub, or gallop. PULMONARY: Lungs are clear to ascultation. MUSCULOSKELETAL: Neck tenderness to palpation is not observed. ROM in neck is normal. Well-healed left cervical incision is noted. NEUROLOGICAL: Orientation, memory, attention span, language function, and cognition have been examined and are intact. Strength is intact in the upper and lower extremities to direct testing. Muscle tone is normal throughout. Station and gait are normal. Sensation is intact to light touch testing throughout. Deep tendon reflexes are 1+ and symmetrical. Juan Alberto's Sign is negative bilaterally. No clonus is elicited. Coordination is intact. Medical Decision Making Data Review: His MRI study from May 2018 demonstrates broad-based spurring at C3-4 with significant recess narrowing on each side. Changes related to prior surgeries identified at C4-6. Diagnosis: 1. Cervical spondylosis with radiculopathy. 2. Mechanical neck pain. 3. Tobacco abuse. Treatment Options: I am going to obtain a follow-up MRI of his neck. If things are as previously noted then we will push ahead with ACDF at see 3-4 with possible old hardware removal. I have once again discussed the merits of smoking cessation as it relates to a successful fusion. Diagnosis Plan 1. Cervical spondylosis with radiculopathy MRI Cervical Spine Without Contrast 2. Tobacco abuse Scribed for Victoriano Perales MD by Ana Maria Edwards CMA on 12/04/2019 14:09 I, Dr. Perales, personally performed the services described in the documentation, as scribed in my presence, and it is both accurate and complete. documented in this encounter Plan of Treatment Upcoming Encounters Date Type Department Care Team (Late st Contact Info) Description 04/10/2024 4:00 PM EST Appointment [facility] AT [address] [address] documented as of this encounter Results * MRI Cervical Spine Without Contrast (12/18/2019 10:32 AM EDT) Anatomical Region Laterality Modality Spine, C-spine N/A Magnetic Resonan ce 12/18/2019 10:4 1 AM EDT Impressions 12/18/2019 10:47 AM EDT Status post C4-C6 anterior fusion. Adjacent level cervical spondylosis is evident and most significant at C3-C4 where there is ocxe-cl-odrsxnee spinal canal and moderate to severe bilateral neural foraminal narrowing as above. This report was finalized on 12/18/2019 10:47 AM by Jeremi Hill. Narrative 12/18/2019 10:47 AM EDT EXAMINATION: MRI CERVICAL SPINE WO CONTRAST- INDICATION: Radiculopathy; M47.22-Other spondylosis with radiculopathy, cervical region Technique: Multiplanar multisequence MRI of the cervical spine without contrast COMPARISON: February 23, 2012 FINDINGS: Redemonstrated prior anterior fusion of C4-C6. Otherwise no focal areas of marrow signal abnormality. There is abnormal straightening and minimal reversal of the usual cervical lordosis about the fusion construct. No other significant listhesis. Craniocervical junction is normal. Minimal dens as well as degenerative changes. C2-C3 disc osteophyte complex with minimal bilateral neural foraminal narrowing. C3-C4 disc osteophyte complex and bilateral facet arthropathy with mild spinal canal and moderate to severe bilateral neural foraminal narrowing, somewhat greater on the left. C4-C5 postoperative appearance of patent spinal canal and bilateral neural foramina. C5-C6 postoperative appearance with patent spinal canal. Mild persistent neuroforaminal narrowing on the left. C6-C7 disc osteophyte complex and bilateral facet arthropathy without spinal canal narrowing. Jxhe-eo-khusttfz left and mild right neural foraminal narrowing. C7-T1 normal. The spinal cord is normal in caliber and signal throughout. Procedure Note Jeremi Hill MD - 12/18/2019 EXAMINATION: MRI CERVICAL SPINE WO CONTRAST- INDICATION: Radiculopathy; M47.22-Other spondylosis with radiculopathy, cervical region Technique: Multiplanar multisequence MRI of the cervical spine without contrast COMPARISON: February 23, 2012 FINDINGS: Redemonstrated prior anterior fusion of C4-C6. Otherwise no focal areas of marrow signal abnormality. There is abnormal straightening and minimal reversal of the usual cervical lordosis about the fusion construct. No other significant listhesis. Craniocervical junction is normal. Minimal dens as well as degenerative changes. C2-C3 disc osteophyte complex with minimal bilateral neural foraminal narrowing. C3-C4 disc osteophyte complex and bilateral facet arthropathy with mild spinal canal and moderate to severe bilateral neural foraminal narrowing, somewhat greater on the left. C4-C5 postoperative appearance of patent spinal canal and bilateral neural foramina. C5-C6 postoperative appearance with patent spinal canal. Mild persistent neuroforaminal narrowing on the left. C6-C7 disc osteophyte complex and bilateral facet arthropathy without spinal canal narrowing. Jvjx-mz-jyjgxcrh left and mild right neural foraminal narrowing. C7-T1 normal. The spinal cord is normal in caliber and signal throughout. IMPRESSION: Status post C4-C6 anterior fusion. Adjacent level cervical spondylosis is evident and most significant at C3-C4 where there is ojfs-mk-olwwzvox spinal canal and moderate to severe bilateral neural foraminal narrowing as above. This report was finalized on 12/18/2019 10:47 AM by Jeremi Hill. us Victoriano Perales MD IMG MRI ORDERABLES Final Resu lt documented in this encounter Visit Diagnoses Diagnosis Cervical spondylosis with radiculopathy- Primary Cervical spondylosis with myelopathy Tobacco abuse Tobacco use disorder Cervical spondylosis with radiculopathy Cervical spondylosis with myelopathy documented in this encounter Care Teams Commercial Loan Reviewer Relationship Specialty Start Date End Date Noah Wagner MD [address] [place] [address] PCP - General Family Medicine 11/05/15 documented as of this encounter
--- OUTSIDE RECORDS SUMMARY | 2024-04-05 11:55 | XMS_ITS | Clinical Summary ---
Author Organization [facility] Address [address] [place] [address] Care Team Providers Care Dramatic Reader Name Role Phone Noah Wagner MD Primary Care Provider [phone] Allergies No known active allergies Medications metoprolol succinate XL (TOPROL-XL) 50 MG 24 hr tablet Take 50 mg by mouth Daily. Active lisinopril (PRINIVIL,ZESTR IL) 10 MG tablet Take 10 mg by mouth Daily. 0 Active albuterol sulfate HFA 108 (90 Base) MCG/ACT inhaler 1 Active cetirizine (zyrTEC) 10 MG tablet Take 10 mg by mouth Daily. 1 Active famotidine (PEPCID) 20 MG tablet Take 20 mg by mouth Daily. 1 Active Trelegy Ellipta 100-62.5-25 MCG/INH inhaler Inhale 1 puff Daily. 1 Active triamcinolone (KENALOG) 0.1 % cream APPLY CREAM EXTERNALLY THREE TIMES DAILY 1 Active Active Problems Problem Noted Date Diagnosed Date Current every day smoker 08/24/2018 Tobacco abuse counseling 08/24/2018 Lateral recess stenosis of cervical spine 2018 Insomnia due to medical condition 08/24/2018 Cervical spondylosis without myelopathy 08/21/19 19 History of fusion of cervical spine 08/20/2018 Cervical spondylosis with radiculopathy 10/08/19 16 Displacement of cervical int ervertebral disc without myelopathy 10/08/2015 Family History Relation Name Status Comments Brother 1 Alive Brother 2 Alive Brother 3 Alive Daughter Alive Father Mother Alive Social History Tobacco Use Types Packs/Day Years Used Date Smoking Tobacco: Every Day Cigarettes Smokeless Tobacco: Never Alcohol Use Standard Drinks/Week Comments Yes 0 (1 standard drink = 0.6 oz pur e alcohol) 1xweek Abuse Screen Answer Date Recorded Unsafe at Home or Work/School Not on file Feels Threatened by Someone? Not on file 01/2023 Does Anyone Keep You from Co ntacting Others or Doint Things Outside the Home? Not on file 02/21/2023 Physical Sign of Abuse Present Not on file 1 Housing Stability Answer Date Recorded Current Living Arrangements Not on file 01/2023 Potentially Unsafe Housing Conditions Not on sejal e 02/21/2023 Family and Community Support Answer Rj e Recorded Help with Day-to-Day Activities Not on file 02/21/2023 Lonely or Isolated Not on file 02/21/2023 Employment Answer Date Recorded Do you want help finding or keeping work or a zay b? Not on file 02/21/2023 Disabilities Answer Date Recorded Concentrating, Remembering, or Making Decisions Difficulty Not on file 02/21/2023 Doing Errands Independently Difficulty Not on fi le 02/21/2023 Education Answer Date Recorded Help with school or training? Not on file Preferred Language Not on file 02/21/2023 Sex and Gender Information Value Date Recorded Sex Assigned at Not on file Legal Sex Male 1:03 PM EDT Gender Identity Not on file Sexual Orientation Not on file Last Filed Vital Signs Vital Sign Reading Time Taken Comments Blood Pressure 140/78 09/26/2020 1:28 PM EDT Pulse 74 12/31/2019 10:31 AM EDT Temperature 36.6 ??C (97.8 ??F) 09/26/2020 1:28 PM ED T Respiratory Rate 18 12/31/2019 1:00 PM EDT Oxygen Saturation 97% 12/31/2019 1:00 PM EDT Inhaled Oxygen Concentration - - Weight 75 kg (165 lb 6.4 oz) 09/26/2020 1:28 PM EDT Height 172.7 cm (5' 8 ) 09/26/2020 1:28 PM EDT Body Mass Index 25.15 09/26/2020 1:28 PM EDT Plan of Treatment Upcoming Encounters Date Type Department Care Team (Late st Contact Info) Description 04/10/2024 4:00 PM EST Appointment [facility] [place] [address] Health Maintenance Due Date Last Done Comments COLOGUARD 1965 COLON CANCER SCREENING 5 YEA R SIGMOIDOSCOPY 1965 COLONOSCOPY 1965 COLORECTAL CANCER SCREENING [address] COLONOGRAPHY 1965 FECAL OCCULT BLOOD TEST 1965 FIT Testing (1 year) 1965 Pneumococcal Vaccine 0-64 (1 of 2 - PCV) 09/18/1969 ZOSTER VACCINE (1 of 2) 09/18/2013 ANNUAL PHYSICAL 06/20/2018 HEPATITIS C SCREENING 06/20/2018 INFLUENZA VACCINE 12/15/2023 COVID-19 Vaccine (2 - season) 01/15/202411/2020 TDAP/TD VACCINES (3 - Td or Tdap) 07/24/2029 020, 07/30/2016 Medical Devices Implanted Type Area Cork Pressing Machine Operator Device Identifier Shelf Expiration Date Model / Serial / Lot Implant Implant Description:Fusion cervical Kt Seal Hemos Abs Floseal Matrx Fast/Prep 10ml - [id number] Implanted:Qty : 1 on 12/31/2019 by Victoriano Perales MD at [facility] Implant N/A: Spine Cervical [employer] [id number] / / Bone Lordotic Asr [id number] Fzd - [id number] - [id number] Implanted:Qty : 1 on 12/31/2019 by Victoriano Perales MD at [facility] Implant N/A: Spine Cervical [employer] A [employer] 07/23/2022 [id number] / [id number] / Scrw St Zevo 2thrd S/Tap 3.5x13mm - [id number] Implanted:Qty : 4 on 12/31/2019 by Victoriano Perales MD at [facility] Implant N/A: Spine Cervical [employer] [id number] / / Plt Acp Zevo 1lvl 17mm Ns - [id number] Implanted:Qty : 1 on 12/31/2019 by Victoriano Perales MD at [facility] Implant N/A: Spine Cervical [employer] [id number] / / Insurance WORKERS COMPENSATION Care Teams Dramatic Reader Relationship Specialty Start Date End Date Noah Wagner MD [address] [place] [address] PCP - General Family Medicine 11/05/15
--- OUTSIDE RECORDS SUMMARY | 2024-04-05 11:55 | XMS_ITS | Encounter Summary ---
Author Organization [facility] Address [address] [place] [id number] Care Team Providers Care Chargemaster Analyst Name Role Phone Noah Wagner MD Primary Care Provider Reason for Visit * Reason Onset Date Comments [facility] RECORDS 03/11/2020 Encounter Details Date Type Department Care Team (Late st Contact Info) Description 03/11/2020 Telephone [facility] NEUROSURGERY [address] [address] Victoriano Perales MD [address] [place] [address] [facility]ICAL RECORDS Social History Tobacco Use Types Packs/Day Years [...] encounter Miscellaneous Notes * Telephone Encounter - Jess Merida - 03/11/2020 2:23 PM EDT Faxed note as requested. Yady Merida * Telephone Encounter - Brittni Braga RegSched Rep - 03/11/2020 1:52 PM EDT ARABELLA WITH [employer] CALLED TO FOLLOW UP ON A MEDICAL RECORDS REQUEST THAT WAS SUBMITTED ON 03/07/20 FOR A WORK COMP CLAIM. SHE IS REQUESTING THE OFFICE NOTE FROM 03/04/[address] PERALES. PLEASE ADVISE. THE RECORDS CAN BE FAXED TO [phone] ARABELLA CAN BE REACHED AT: [phone] THANK YOU! documented in this encounter Plan of Treatment Upcoming Encounters Date Type Department Care Team (Late st Contact Info) Description 04/10/2024 4:00 PM EST Appointment [facility] [address] [place] [address] documented as of this encounter Visit Diagnoses Not on filedocumented in this encounter Care Teams Chargemaster Analyst Relationship Specialty Start Date End Date Noah Wagner MD [address] [place] [address] PCP - General Family Medicine 11/05/15 documented as of this encounter
--- OUTSIDE RECORDS SUMMARY | 2024-04-05 11:55 | XMS_ITS | Encounter Summary ---
Author Organization [facility] Address [address] [place] [address] Care Team Providers Care Auto Body Repair Estimator Name Role Phone Noah Wagner MD Primary Care Provider [phone] Encounter Details Date Type Department Care Team (Late st Contact Info) Description 05/21/2020 Documentation [facility] NEUROS[facility]GERY [address] [address] Ania Bliss PA-C [address] [place] [address] Social History Tobacco Use Types Packs/Day Years [...] as of this encounter Progress Notes * Azul Oh MA - 05/21/2020 2:43 PM EST Unable to call in Tramadol per Ania METZ as it has to be E-scribed. Ania METZ notified and asked that patient reach out to his PCP. Patient notified and verbalized understanding. documented in this encounter Plan of Treatment Upcoming Encounters Date Type Department Care Team (Late st Contact Info) Description 04/10/2024 4:00 PM EST Appointment [facility] [address] [place] [address] documented as of this encounter Visit Diagnoses Not on filedocumented in this encounter Care Teams Auto Body Repair Estimator Relationship Specialty Start Date End Date Noah Wagner MD [address] [place] [address] PCP - General Family Medicine 11/05/15 documented as of this encounter
--- OUTSIDE RECORDS SUMMARY | 2024-04-05 11:55 | XMS_ITS | Encounter Summary ---
Author Organization [facility] Address [address] [place] [id number] Care Team Providers Care Stretcher Helper Name Role Phone Noah Wagner MD Primary Care Provider [phone] Reason for Referral * Diagnostic Imaging (Routine) - Closed Specialty Diagnoses / Procedures Referred By Contac t Referred To Contact Radiology Diagnoses Hx of fusion of cervical spine Procedures XR spine cervical 2 or 3 vw Victoriano Perales MD [address] [place] [address] Phone: tel: fax: [facility] [address] [place] [address] Phone: tel: Referral ID Status Reason Start Date Expiration Date Visits Re quested Visits Authorized [id number] Closed 12/20/2018 12/20/2019 1 1 Reason for Visit * Diagnostic Imaging (Routine) - Closed Specialty Diagnoses / Procedures Referred By Contac t Referred To Contact Radiology Diagnoses Hx of fusion of cervical spine Procedures XR spine cervical 2 or 3 vw Victoriano Perales MD [address] [place] [address] Phone: tel: fax: [facility] [address] [place] [address] Phone: tel: Referral ID Status Reason Start Date Expiration Date Visits Re quested Visits Authorized [id number] Closed 12/20/2018 12/20/2019 1 1 Encounter Details Date Type Department Care Team (Late Contact Info) Description 12/20/2018 12:28 PM EDT - 12/20/2018 11:59 PM EDT Hospital Encounter [facility] [address] [place] [address] Victoriano Perales MD [address] [facility] [address] [place] [address] Hx of fusion of cervical spine Discharge Disposition: Home or Self Care Social History Tobacco Use Types Packs/Day Years [...] on file documented as of this encounter Medications at Time of Discharge acetaminophen (TYLENOL) 500 MG tablet Take one tablet by mouth four times a day as needed for mild to moderate breakthrough pain 120 tablet 5 08/24/2018 1 BYSTOLIC 10 MG tablet Take 10 mg by mouth Daily. 3 11/08/2018 0 vitamin B-12 (CYANOCOBALAMIN) 1000 MCG tablet Take 1,000 mcg by mouth Daily. 0 documented as of this encounter Plan of Treatment Upcoming Encounters Date Type Department Care Team (Late Contact Info) Description 04/10/2024 4:00 PM EST Appointment [facility] AT [address] [address] documented as of this encounter Procedures Procedure Name Priority Date/Time Associated Diagnosis Comments XR SPINE CERVICAL 2 OR 3 VW Routine 12/20/2018 12:37 PM EDT Hx of fusion of cervical spine documented in this encounter Results * XR Spine Cervical 2 or 3 View (12/20/2018 12:37 PM EDT) Anatomical Region Laterality Modality Spine, C-spine N/A Radiographic Irina ging 12/21/2018 12:5 6 PM EDT Impressions 12/21/2018 4:58 PM EDT Straightening identified of the normal lordosis of the cervical spine with no evidence of fracture or dislocation. Fusion identified of C4-C6. D: ??12/21/2018 E: ??12/21/2018 This report was finalized on 12/21/2018 4:[address] Kim Arteaga MD. Narrative 12/21/2018 4:58 PM EDT EXAMINATION: XR SPINE CERVICAL 2 OR 3 VW- 12/20/2018 INDICATION: f/u cervical fusion; Z98.1-Arthrodesis status COMPARISON: NONE FINDINGS: AP, lateral views of the cervical spine reveal anterior fusion identified of the C4, C5, and C6 levels. There is no evidence of fracture with straightening of the normal lordosis. The facets are well aligned. No prevertebral soft tissue swelling. The pedicles are intact. ?? Procedure Note Kim Arteaga MD - 12/21/2018 EXAMINATION: XR SPINE CERVICAL 2 OR 3 VW- 12/20/2018 INDICATION: f/u cervical fusion; Z98.1-Arthrodesis status COMPARISON: NONE FINDINGS: AP, lateral views of the cervical spine reveal anterior fusion identified of the C4, C5, and C6 levels. There is no evidence of fracture with straightening of the normal lordosis. The facets are well aligned. No prevertebral soft tissue swelling. The pedicles are intact. IMPRESSION: Straightening identified of the normal lordosis of the cervical spine with no evidence of fracture or dislocation. Fusion identified of C4-C6. E: 12/21/2018 This report was finalized on 12/21/2018 4:[address] Kim Arteaga MD. Victoriano Perales MD IMG DIAGNOSTIC IMAGING ORDERA BLES Final Result documented in this encounter Visit Diagnoses Diagnosis Hx of fusion of cervical spine documented in this encounter Care Teams Stretcher Helper Relationship Specialty Start Date End Date Noah Wagner MD [address] [place] [address] PCP - General Family Medicine 11/05/15 documented as of this encounter
--- OUTSIDE RECORDS SUMMARY | 2024-04-05 11:55 | XMS_ITS | Encounter Summary ---
Author Organization [facility] Address [address] [place] [address] Care Team Providers Care Gunstock Repairer Name Role Phone Noah Wagner MD Primary Care Provider [phone] Reason for Visit * Reason Onset Date Comments OVERMYER - PT ORDER 05/27/2020 Encounter Details Date Type Department Care Team (Late st Contact Info) Description 05/27/2020 Telephone [facility] [address] [address] Ania Bliss, [address] [place] [address] OVERMYER - PT ORDER Social History Tobacco Use Types Packs/Day Years [...] encounter Miscellaneous Notes * Telephone Encounter - Fritz No MA - 05/27/2020 11:21 AM EST PT order faxed. NK * Telephone Encounter - Brittni Braga RegSched Rep - 05/27/2020 10:48 AM EST Caller: EWA CUNHA Relationship: PARTNER Best call back number: [phone] What orders are you requesting (i.e. lab or imaging): PHYSICAL THERAPY In what timeframe would the patient need to come in: DORIAN, HIS LAST APPOINTMENT WITH PHYSICAL THERAPY IS THIS Tuesday Where will you receive your lab/imaging services: [facility] Additional notes: THE ORDER CAN BE FAXED TO [phone] documented in this encounter Plan of Treatment Upcoming Encounters Date Type Department Care Team (Late st Contact Info) Description 04/10/2024 4:00 PM EST Appointment [facility] [address] [place] [address] documented as of this encounter Visit Diagnoses Not on filedocumented in this encounter Care Teams Gunstock Repairer Relationship Specialty Start Date End Date Noah Wagner MD [address] [place] [address] PCP - General Family Medicine 11/05/15 documented as of this encounter
--- OUTSIDE RECORDS SUMMARY | 2024-04-05 11:55 | XMS_ITS | Encounter Summary ---
Author Organization [facility] Address [address] [place] [address] Care Team Providers Care Esl Tutor Name Role Phone Noah Wagner MD Primary Care Provider [phone] Reason for Referral * (Routine) - Closed Specialty Diagnoses / Procedures Referred By Renee t Referred To Contact Radiology Diagnoses S/P cervical spinal fusion Cervical spondylosis with radiculopathy Procedures XR Spine Cervical 2 View Ania Bliss PA-C Phone: tel: fax: Referral ID Status Reason Start Date Expiration Date Visits Re quested Visits Authorized [id number] Closed 05/21/2020 05/21/2021 1 1 Reason for Visit * Reason Comments Follow-up Encounter Details Date Type Department Care Team (Latest Contact Info) Description 05/21/2020 1:45 PM EST Office Visit [facility] [address] [address] Ania Bliss PA-C [address] [place] [address] S/P cervical spinal fusion (Primary Dx); Cervical spondylosis with radiculopathy; Hx of fusion of cervical spine; Tobacco abuse; BMI 25.0-25.9,adult Social History Tobacco Use Types Packs/Day Years [...] Pressure - - Pulse - - Temperature - - Respiratory Rate - - Oxygen Saturation - - Inhaled Oxygen Concentration - - Weight 74.8 kg (165 lb) 05/21/2020 1:46 PM EST Height 172.7 cm (5' 7.99 ) 05/21/2020 1:46 PM ES T Body Mass Index 25.09 05/21/2020 1:46 PM EST documented in this encounter Patient Instructions * Patient Instructions* Ania Bliss PA-C - 05/21/2020 1:45 PM EST Images from the original note were not included. Healthy Eating Following a healthy eating pattern may help you to achieve and maintain a healthy body weight, reduce the risk of chronic disease, and live a long and productive life. It is important to follow a healthy eating pattern at an appropriate calorie level for your body. Your nutritional needs should be met primarily through food by choosing a variety of nutrient-rich foods. What are tips for following this plan? Reading food labels ?? Read labels and choose the following: ? Reduced or low sodium. ? Juices with 100% fruit juice. ? Foods with low saturated fats and high polyunsaturated and monounsaturated fats. ? Foods with whole grains, such as whole wheat, cracked wheat, brown rice, and wild rice. ? Whole grains that are fortified with folic acid. This is recommended for women who are or who want to become . ?? Read labels and avoid the following: ? Foods with a lot of added sugars. These include foods that contain brown sugar, corn sweetener, corn syrup, dextrose, fructose, glucose, high-fructose corn syrup, honey, invert sugar, lactose, maltsyrup, maltose, molasses, raw sugar, sucrose, trehalose, or turbinado sugar. ?? Do not eat more than the following amounts of added sugar per day: ?? 6 teaspoons (25 g) for women. ?? 9 teaspoons (38 g) for men. ? Foods that contain processed or refined starches and grains. ? Refined grain products, such as white flour, degermed cornmeal, white bread, and white rice. Shopping ?? Choose nutrient-rich snacks, such as vegetables, whole fruits, and nuts. Avoid high-calorie and high-sugar snacks, such as potato chips, fruit snacks, and candy. ?? Use oil-based dressings and spreads on foods instead of solid fats such as butter, stick margarine, or cream cheese. ?? Limit pre-made sauces, mixes, and instant products such as flavored rice, instant noodles, andready-made pasta. ?? Try more plant-protein sources, such as tofu, tempeh, black beans, edamame, lentils, nuts, and seeds. ?? Explore eating plans such as the Mediterranean diet or vegetarian diet. Cooking ?? Use oil to saut?? or stir-pichardo foods instead of solid fats such as butter, stick margarine, or lard. ?? Try baking, boiling, grilling, or broiling instead of frying. ?? Remove the fatty part of meats before cooking. ?? Steam vegetables in water or broth. Meal planning ?? At meals, imagine dividing your plate into fourths: ? One-half of your plate is fruits and vegetables. ? One-fourth of your plate is whole grains. ? One-fourth of your plate is protein, especially lean meats, poultry, eggs, tofu, beans, or nuts. ?? Include low-fat dairy as part of your daily diet. Lifestyle ?? Choose healthy options in all settings, including home, work, school, restaurants, or stores. ?? Prepare your food safely: ? Wash your hands after handling raw meats. ? Keep food preparation surfaces clean by regularly washing with hot, soapy water. ? Keep raw meats separate from gfdgu-eg-rgc foods, such as fruits and vegetables. ? mangle roll operator, meat, poultry, and eggs to the recommended internal temperature. ? Store foods at safe temperatures. In general: ?? Keep cold foods at 40??F (4.4??C) or below. ?? Keep hot foods at 140??F (60??C) or above. ?? Keep your freezer at 0??F (-17.8??C) or below. ?? Foods are no longer safe to eat when they have been between the temperatures of 40??-140??F (4.4-60??C) for more than 2 hours. What foods should I eat? Fruits Aim to eat 2 cup-equivalents of fresh, canned (in natural juice), or frozen fruits each day. Examples of 1 cup-equivalent of fruit include 1 small apple, 8 large strawberries, 1 cup canned fruit, ?? cup dried fruit, or 1 cup 100% juice. Vegetables Aim to eat 2??-3 cup-equivalents of fresh and frozen vegetables each day, including different varieties and colors. Examples of 1 cup-equivalent of vegetables include 2 medium carrots, 2 cups raw, leafy greens, 1 cup chopped vegetable (raw or cooked), or 1 medium baked potato. Grains Aim to eat 6 ounce-equivalents of whole grains each day. Examples of 1 ounce- equivalent of grains include 1 slice of bread, 1 cup oihpq-ga-ycq cereal, 3 cups popcorn, or ?? cup cooked rice, pasta, orcereal. Meats and other proteins Aim to eat 5-6 ounce-equivalents of protein each day. Examples of 1 ounce- equivalent of protein include 1 egg, 1/2 cup nuts or seeds, or 1 tablespoon (16 g) peanut butter. A cut of meat or fish that is the size of a deck of cards is about 3-4 ounce-equivalents. ?? Of the protein you eat each week, try to have at least 8 ounces come from seafood. This includessalmon, trout, connolly, and anchovies. Dairy Aim to eat 3 cup-equivalents of fat-free or low-fat dairy each day. Examples of 1 cup-equivalent ofdairy include 1 cup (240 mL) milk, 8 ounces (250 g) yogurt, 1?? ounces (44 g) natural cheese, or 1 cup (240 mL) fortified soy milk. Fats and oils ?? Aim for about 5 teaspoons (21 g) per day. Choose monounsaturated fats, such as canola and olive oils, avocados, peanut butter, and most nuts, or polyunsaturated fats, such as sunflower, corn, and soybean oils, walnuts, pine nuts, sesame seeds, sunflower seeds, and flaxseed. Beverages ?? Aim for six 8-oz glasses of water per day. Limit coffee to three to five 8-oz cups per day. ?? Limit caffeinated beverages that have added calories, such as soda and energy drinks. ?? Limit alcohol intake to no more than 1 drink a day for non women and 2 drinks a day for men. One drink equals 12 oz of beer (355 mL), 5 oz of wine (148 mL), or 1?? oz of hard liquor (44 mL). Seasoning and other foods ?? Avoid adding excess amounts of salt to your foods. Try flavoring foods with herbs and spices instead of salt. ?? Avoid adding sugar to foods. ?? Try using oil-based dressings, sauces, and spreads instead of solid fats. This information is based on general [place] nutrition guidelines. For more information, visit [employer]. Exact amounts may vary based on your nutrition needs. Summary ?? A healthy eating plan may help you to maintain a healthy weight, reduce the risk of chronic diseases, and stay active throughout your life. ?? Plan your meals. Make sure you eat the right portions of a variety of nutrient-rich foods. ?? Try baking, boiling, grilling, or broiling instead of frying. ?? Choose healthy options in all settings, including home, work, school, restaurants, or stores. This information is not intended to replace advice given to you by your health care provider. Make sure you discuss any questions you have with your health care provider. Document Revised: 08/14/2018 Document Reviewed: 08/14/2018 [employer] Patient Education ?? 2020 [employer]. documented in this encounter Progress Notes * Ania Bliss PA-C - 05/21/2020 1:45 PM EST Patient: Arjun Melton : 1965 GENDER: male Primary Care Provider: Noah Wagner MD Requesting Provider: As above History Chief Complaint: neck and right shoulder pain History of Present Illness: Mr. Melton is a 54-year-old gentleman who works at [employer]. He is known to Dr. Perales's service for undergoing ACDF at C5-6 on 05/22/2009. He did well but developed recurrent symptoms. As such, he underwent ACDF at C4-5 with removal of old hardware on 09/08/2015. More recently, he presented with recurrent neck and right shoulder pain. Preoperative studies demonstrated significant spondylosis with nerve root compromise at C3-4. As such, patient presented for ACDF at C3-4 with removal of his old hardware on 12/31/2019. ?? Presently, Mr. Melton is 5 months postop. He notes an 85% improvement in his preoperative complaints overall. He has returned to work full-time, and admits to occasional right shoulder discomfort-that increases in severity with overuse. He started physical therapy, and has attended 4-5 sessions with improvement in his range of motion. His swallowing is better. He takes the occasional tramadol at night to help with sleeping. He has no other complaints at this time. Review of Systems Constitutional: Positive for fatigue. HENT: Negative. Eyes: Negative. Respiratory: Negative. Cardiovascular: Negative. Gastrointestinal: Negative. Endocrine: Negative. Genitourinary: Negative. Musculoskeletal: Positive for arthralgias, myalgias, neck pain and neck stiffness. Skin: Negative. Allergic/Immunologic: Negative. Neurological: Negative. Hematological: Negative. Psychiatric/Behavioral: Positive for sleep disturbance. Past Medical History: Diagnosis Date ??? Arthritis ??? COPD (chronic obstructive pulmonary disease) (CMS/HCC) mild ??? GERD (gastroesophageal reflux disease) ??? Hypertension ??? PONV (postoperative nausea and vomiting) ??? Scarlet fever ??? Wears partial dentures upper Past Surgical History: Procedure Laterality Date ??? ANTERIOR CERVICAL DISCECTOMY 05/22/2009 C5-6 (Diaz) ??? ANTERIOR CERVICAL DISCECTOMY 09/08/2015 C4-5 (Diaz) ??? ANTERIOR CERVICAL DISCECTOMY W/ FUSION N/A 12/31/2019 Procedure: HARDWARE REMOVAL C4-5 , CERVICAL DISCECTOMY ANTERIOR WITH FUSION C3- 4; Surgeon: Victoriano Perales MD; Location: [facility]; Service: Neurosurgery; Laterality: N/A; ??? COLONOSCOPY apprx 15 years ago ??? NECK SURGERY 05/16/2008 ??? SHOULDER SURGERY 05/16/2008 Right Current Outpatient Medications: ??? acetaminophen (TYLENOL) 500 MG tablet, Take one tablet by mouth four times a day as needed for mild to moderate breakthrough pain, Disp: 120 tablet, Rfl: 5 ??? esomeprazole (nexIUM) 40 MG capsule, Take 40 mg by mouth Every Morning Before Breakfast., Disp:, Rfl: ??? lisinopril (PRINIVIL,ZESTRIL) 10 MG tablet, Take 10 mg by mouth Daily., Disp: , Rfl: ??? metoprolol succinate XL (TOPROL-XL) 50 MG 24 hr tablet, Take 50 mg by mouth Daily., Disp: , Rfl: ??? triamterene-hydrochlorothiazide (MAXZIDE-25) 37.5-25 MG per tablet, Take 1 tablet by mouth Daily., Disp: , Rfl: No Known Allergies The patient's review of systems, past medical history, past surgical history, family history, and social history have been reviewed at length in the electronic medical record. Physical Exam: Ht 172.7 cm (67.99 ) Wt 74.8 kg (165 lb) BMI 25.09 kg/m?? CONSTITUTIONAL: - Patient is well-nourished - Pleasant and appears stated age. PSYCHIATRIC: - Normal mood and affect - Behavior is normal. - Thought content is normal HENT: Head: Normocephalic and Atraumatic. Eyes: - Pupils are equal, round, and reactive to light. - EOM are normal. CV: - Regular rate and rhythm on palpable radial pulse - No murmur appreciated PULMONARY: - Speaking in full sentences - No use of accessory muscles - Breathing is non-labored - No wheezing SKIN: - Clean, dry and intact - well healed surgical incision MUSCULOSKELETAL: - Neck/Back tenderness to palpation is not observed. - ROM in neck/back is normal. - Straight leg raise is negative - Oleg's sign is negative NEUROLOGICAL: - A&Ox3 - Attention span, language function, and cognition are intact. - Strength is intact in the upper and lower extremities to direct testing. - Muscle tone is normal throughout. - Station and gait are normal. - Sensation is intact to light touch testing throughout. - Deep tendon reflexes are 1+ and symmetrical. - Marrufo's Sign is negative bilaterally. - Coordination is intact. Patient's Body mass index is 25.09 kg/m??. BMI is above normal parameters. Recommendations include:educational material, exercise counseling and nutrition counseling. Medical Decision Making Data Review: 1. XRAY Cervical Spine (01/22/2020): Demonstrates postsurgical changes consistent with ACDF at C3-4.Construct is maintained in excellent alignment. There is no evidence of hardware failure or compromise. Solid fusion from C4-6 without instrumentation. Diagnosis/Treatment Options: 1. S/P cervical spinal fusion 2. Cervical spondylosis with radiculopathy 3. Hx of fusion of cervical spine 4. Tobacco abuse 5. BMI 25.0-25.9,adult - XR Spine Cervical 2 View Follow up: Mr. Melton is seen today in follow-up 5 months after undergoing an uncomplicated ACDF with allografting and plating at C3-4 with removal of old hardware on 12/31/2019. Patient continues to do well. His severe right shoulder pain has improved. He has returned to his regular activities without interf erence. Unfortunately he continues to smoke less than 1 pack/day. I again counseled on the importance of smoking cessation to ensure optimal fusion progression and surgical outcome. Patient verbalized understanding. He will continue to observe and will be seen back in the office in 4 months with a new x-ray of the cervical spine to assess for fusion progression. Ania Bliss PA-C 05/21/2020 14:16 EST documented in this encounter Plan of Treatment Upcoming Encounters Date Type Department Care Team (Late st Contact Info) Description 04/10/2024 4:00 PM EST Appointment [facility] AT [address] [address] documented as of this encounter Procedures Procedure Name Priority Date/Time Associated Diagnosis Comments XR SPINE CERVICAL 2 VW Routine 09/26/2020 1:00 PM EDT S/P cervical spinal fusion Cervical spondylosis with radiculopathy documented in this encounter Results * XR Spine Cervical 2 View (09/26/2020 1:00 PM EDT) Anatomical Region Laterality Modality Spine, C-spine N/A Radiographic Irina ging 09/26/2020 1:28 PM EDT Impressions 09/29/2020 5:10 PM EDT Stable alignment of C3-C4 ACDF hardware and cervical segments. D: ??09/26/2020 E: ??09/26/2020 This report was finalized on 09/29/2020 5:[address] Huang Avila. Narrative 09/29/2020 5:10 PM EDT EXAMINATION: XR SPINE CERVICAL 2 VW- 09/26/2020 INDICATION: History of cervical fusion; Z98.1-Arthrodesis status; M47.22-Other spondylosis with radiculopathy, cervical region COMPARISON: 01/22/2020 FINDINGS: AP and lateral views of the cervical spine reveal stable alignment of cervical segments and stable appearance of C3-C4 ACDF hardware without evidence of loosening or failure. No periprosthetic fracture or acute findings with degenerative changes throughout the lower cervical segments again noted. No abnormal prevertebral soft tissue swelling or abnormality in the lung apices. Procedure Note Huang Avila DO - 09/29/2020 EXAMINATION: XR SPINE CERVICAL 2 VW- 09/26/2020 INDICATION: History of cervical fusion; Z98.1-Arthrodesis status; M47.22-Other spondylosis with radiculopathy, cervical region COMPARISON: 01/22/2020 FINDINGS: AP and lateral views of the cervical spine reveal stable alignment of cervical segments and stable appearance of C3-C4 ACDF hardware without evidence of loosening or failure. No periprosthetic fracture or acute findings with degenerative changes throughout the lower cervical segments again noted. No abnormal prevertebral soft tissue swelling or abnormality in the lung apices. IMPRESSION: Stable alignment of C3-C4 ACDF hardware and cervical segments. E: 09/26/2020 This report was finalized on 09/29/2020 5:[address] Huang Avila. Ania Bliss PA-C IMG DIAGNOSTIC IMAGING ORD ERABLES Final Result documented in this encounter Visit Diagnoses Diagnosis S/P cervical spinal fusion- Primary Arthrodesis status Cervical spondylosis with radiculopathy Cervical spondylosis with myelopathy Hx of fusion of cervical spine Tobacco abuse Tobacco use disorder BMI 25.0-25.9,adult documented in this encounter Care Teams Esl Tutor Relationship Specialty Start Date End Date Noah Wagner MD [address] [place] [address] PCP - General Family Medicine 11/05/15 documented as of this encounter
--- OUTSIDE RECORDS SUMMARY | 2024-04-05 11:55 | XMS_ITS | Encounter Summary ---
Author Organization [facility] Address [address] [place] [address] Care Team Providers Care Mobile Mechanic Name Role Phone Noah Wagner MD Primary Care Provider [phone] Reason for Referral * Diagnostic Imaging (Routine) - Closed Specialty Diagnoses / Procedures Referred By [facility] Referred To Contact Radiology Diagnoses Cervical spondylosis with radiculopathy Procedures MRI Cervical Spine Without Contrast Victoriano Perales MD [address] [place] [address] Phone: tel: fax: [facility] MRI [address] [place] [address] Phone: tel: Referral ID Status Reason Start Date Expiration Date Visits Re quested Visits Authorized [id number] Closed 12/04/2019 12/03/2020 1 1 Reason for Visit * Diagnostic Imaging (Routine) - Closed Specialty Diagnoses / Procedures [facility] Referred To Contact Radiology Diagnoses Cervical spondylosis with radiculopathy Procedures MRI Cervical Spine Without Contrast Victoriano Perales MD [address] [place] [address] Phone: tel: fax: [facility] MRI [address] [place] [address] Phone: tel: Referral ID Status Reason Start Date Expiration Date Visits Re quested Visits Authorized [id number] Closed 12/04/2019 12/03/2020 1 1 Encounter Details Date Type Department Care Team (Late Contact Info) Description 12/18/2019 9:59 AM EDT - 12/18/2019 11:59 PM EDT Hospital Encounter [facility] MRI [address] [place] [address] Victoriano [facility]erales MD [address] [facility] [address] [place] [id number] Cervical spondylosis with radiculopathy Discharge Disposition: Home or Self Care Social [...] 4:00 PM EST Appointment [facility] CT AT [address] [address] documented as of this encounter Procedures Procedure Name Priority Date/Time Associated Diagnosis Comments MRI CERVICAL SPINE WO CONTRAST Routine 12/18/2019 10:32 AM EDT Cervical spondylosis with radiculopathy documented in this encounter Results * MRI Cervical Spine Without Contrast (12/18/2019 10:32 AM EDT) Anatomical Region Laterality Modality Spine, C-spine N/A Magnetic Resonan ce 12/18/2019 10:4 1 AM EDT Impressions 12/18/2019 10:47 AM EDT Status post C4-C6 anterior fusion. Adjacent level cervical spondylosis is evident and most significant at C3-C4 where there is uizr-jh-iuzaytkr spinal canal and moderate to severe bilateral [...] bilateral facet arthropathy without spinal canal narrowing. Stvp-sl-wizxzglk left and mild right neural foraminal narrowing. [...] bilateral facet arthropathy without spinal canal narrowing. Fkdo-gq-pfhldvdv left and mild right neural foraminal narrowing. C7-T1 normal. The spinal cord is normal in caliber and signal throughout. IMPRESSION: Status post C4-C6 anterior fusion. Adjacent level cervical spondylosis is evident and most significant at C3-C4 where there is gamf-du-qtnazxrc spinal canal and moderate to severe bilateral neural foraminal narrowing as above. This report was finalized on 12/18/2019 10:47 AM by Jeremi Hill. us Victoriano Perales MD IMG MRI ORDERABLES Final Resu lt documented in this encounter Visit Diagnoses Diagnosis Cervical spondylosis with radiculopathy Cervical spondylosis with myelopathy documented in this encounter Care Teams Mobile Mechanic Relationship Specialty Start Date End Date Noah Wagner MD [address] [place] [address] PCP - General Family Medicine 11/05/15 documented as of this encounter
--- OUTSIDE RECORDS SUMMARY | 2024-04-05 11:55 | XMS_ITS | Encounter Summary ---
Author Organization [facility] Address [address] [place] [id number] Care Team Providers Care Tester [employer] Name Role Phone Noah Wagner MD Primary Care Provider [phone] Reason for Referral * Surgical (Routine) - Closed Specialty Diagnoses / Procedures Referred By Renee meza Referred To Contact Diagnoses Cervical spondylosis with radiculopathy Procedures Case Request MO ARTHRODESIS ANT INTERBODY INC DISCECTOMY, CERVICAL BELOW C2 MO ALLOGRAFT FOR SPINE SURGERY ONLY STRUCTURAL MO ANTERIOR INSTRUMENTATION 2-3 VERTEBRAL SEGMENTS Victoriano Perales MD [address] [place] [address] Phone: tel: fax: [address] [address] Phone: tel: Referral ID Status Reason Start Date Expiration Date Visits Re quested Visits Authorized [id number] Closed 12/18/2019 12/17/2020 1 1 Encounter Details Date Type Department Care Team (Late st Contact Info) Description 12/18/2019 Prep for Surgery [facility] ORDERS ONLY [address] [place] [id number] Victoriano Perales MD [address] [place] [address] Cervical spondylosis with radiculopathy (Primary Dx) Social History Tobacco Use Types [...] on file documented as of this encounter H&P Notes * Victoriano Perales MD - 12/18/2019 12:02 PM EDT Patient: Arjun Melotn : 1965 ?? Primary Care Provider: Noah Wagner MD ?? Requesting Provider: As above ? History ?? Chief Complaint: Neck and bilateral shoulder pain. ?? History of Present Illness: Mr. Melton is a 54-year-old gentleman who works at [employer] who is well-known to my service. ??On 05/22/2009 he underwent ACDF at C5-6. ??He did well but developed recurrentsymptoms and on 09/08/15 he underwent ACDF at C4-5 with removal of old hardware. ??He was last seen in December of last year with complaints of neck pain extending into the right shoulder region. ??Those symptoms had??begun after some work in May 2018. ??Symptoms were worse with head turning. ??Therapy and epidural injections were not helpful. ??I have recommended ACDF at C3-4 but that was not approved by Worker's Compensation. ??His symptoms persist. ??He continues to work full-time. ??His surgery has now been approved as I understand it. ??He is now smoking less than 1 pack of tobacco daily. He reports no change in his usual symptoms. ?? Review of Systems Constitutional: Negative for activity [...] chest pain, palpitations and leg swelling. Gastrointestinal: Negative for abdominal distention, abdominal pain, anal bleeding, blood in stool,constipation, diarrhea, nausea, rectal pain and vomiting. Endocrine: Negative for cold intolerance, heat intolerance, polydipsia, polyphagia and polyuria. Genitourinary: Negative for decreased urine volume, difficulty urinating, dysuria, enuresis, flank pain, frequency, genital sores, hematuria and urgency. Musculoskeletal: Positive for myalgias. Negative for arthralgias, back pain, gait problem, joint swelling, neck pain and neck stiffness. Skin: Negative for color [...] All other systems reviewed and are negative. ? The patient's past medical history, past surgical history, family history, and social history have been reviewed at length in the electronic medical record. ?? Past Medical History: Diagnosis Date ??? Hypertension ??? Scarlet fever ??? Seizures ([facility]) Past Surgical History: Procedure Laterality Date ??? ANTERIOR CERVICAL DISCECTOMY 05/22/2009 C5-6 (Diaz) ??? ANTERIOR CERVICAL DISCECTOMY 09/08/2015 C4-5 ([facility]) ??? NECK SURGERY 05/16/2008 ??? SHOULDER SURGERY 05/16/2008 Right No family history on file. Social History Socioeconomic History ??? Marital status: Spouse name: Not on file ??? Number of children: Not on file ??? Years of education: Not on file ??? Highest education level: Not on file Tobacco Use ??? Smoking status: Current Every Day Smoker Packs/day: 1.00 Types: Cigarettes ??? Smokeless tobacco: Never Used Substance and Sexual Activity ??? Alcohol use: Yes Comment: 1xweek ??? Drug use: No No Known Allergies Current Outpatient Medications on File Prior to Visit Medication Sig Dispense Refill ??? acetaminophen (TYLENOL) 500 MG tablet Take one tablet by mouth four times a day as needed for mild to moderate breakthrough pain 120 tablet 5 ??? BYSTOLIC 10 MG tablet Take 10 mg by mouth Daily. 3 ??? vitamin B-12 (CYANOCOBALAMIN) 1000 MCG tablet Take 1,000 mcg by mouth Daily. No current facility-administered medications on file prior to visit. Physical Exam: Temp 97.3 ??F (36.3 ??C) (Infrared) Resp 15 Ht 172.7 cm (68 ) Wt 72.7 kg (160 lb 3.2 oz) BMI 24.36 kg/m?? MUSCULOSKELETAL: Neck tenderness to palpation is not observed. ROM in neck is normal. Well-healed left anterior cervical incision is noted. NEUROLOGICAL: Strength is intact in the upper and lower extremities to direct testing. Muscle tone is normal throughout. Station and gait are normal. Sensation is intact to light touch testing throughout. Deep tendon reflexes are 1+ and symmetrical. Juan Alberto's Sign is negative bilaterally. ?? Medical Decision Making ?? Data Review: His follow-up MRI demonstrates broad-based burring with bilateral recess narrowing at C3-4 above his prior construct at C4-5. ?? Plain films from last year demonstrate residual findings related to his prior Mystique plating at C5-6. Plate and screws are present at C4-5. I believe that his fusion is solid at C5-6 and probably so at C4-5. ?? Diagnosis: Cervical spondylosis with radiculopathy. ?? Treatment Options: I have recommended ACDF with allografting and plating C3-4. It may be necessary to remove the old hardware to accomplish this. The nature of the procedure as well as the potential risks, complications, limitations, and alternatives to the procedure were discussed at length with the patient and the patient has agreed to proceed with surgery. The goal of surgery is to improve his symptoms. It is unlikely to completely eradicate them. He will continue to work on decreasing his smoking. ? Diagnosis Plan 1. Cervical spondylosis with radiculopathy ? documented in this encounter Plan of Treatment Upcoming Encounters Date Type Department Care Team (Late st Contact Info) Description 04/10/2024 4:00 PM EST Appointment [facility] [address] [place] [id number] documented as of this encounter Visit Diagnoses Diagnosis Cervical spondylosis with radiculopathy- Primary Cervical spondylosis with myelopathy documented in this encounter Care Teams Tester [employer] Relationship Specialty Start Date End Date Noah Wagner MD [address] [place] [address] PCP - General Family Medicine 11/05/15 documented as of this encounter
--- OUTSIDE RECORDS SUMMARY | 2024-04-05 11:55 | XMS_ITS | Encounter Summary ---
Author Organization [facility] Address [address] [place] [address] Care Team Providers Care Security Coordinator Name Role Phone Noah Wagner MD Primary Care Provider [phone] Encounter Details Date Type Department Care Team (Late st Contact Info) Description 08/09/2018 Telephone [facility] PAIN MANAGEMENT [address] [phone] Jailene Agrawal RN Social History Tobacco Use Types Packs/Day Years Used Date Smoking Tobacco: Every Day Cigarettes Alcohol Use Standard Drinks/Week Comments Yes 0 (1 standard drink = 0.6 oz pur e alcohol) 1xweek Sex and Gender Information Value Date Recorded Sex Assigned at Not on file Legal Sex Male 1:03 PM EDT Gender Identity Not on file Sexual Orientation Not on file documented as of this encounter Miscellaneous Notes * Telephone Encounter - Jailene Agrawal RN - 08/09/2018 4:16 PM EDT [facility] Report #[id number] MRI Cervical Spine, 06/09/2018: There has been interval surgery. There is no anterior fusion at C4-C5. There is persistent fusion at C5-C6. There is a reversal of the normal lordotic curvature of the cervical spine. No discrete cord signal lesions are evident. There is sinus disease again noted, part icularly within the right maxillary sinus where there may be an air-fluid level present this is incompletely assessed on this study. Disc levels: C2-C3: There is a small disc osteophyte complex formation with moderate articular facet disease. There is mild to moderate narrowing of the foramen. This is similar to the prior study. C3-C4: There is a disc osteophyte complex formation asymmetrically worse on the left. There is effacement of the cord surface and moderate canal stenosis. The neural foramina are moderately narrowed on the right and moderate to severely narrowed on the left. This level is similar to the prior study. There is mildly worsening canal stenosis. C4-C5: There are hypertrophic endplate changes. There is moderate to severe left and moderate rightforaminal narrowing. There is mild canal narrowing. There has been interval surgery at this level. The canal stenosis is improved from the prior study. C5-C6: There are mild hypertrophic changes with abutment upon the ventral cord. There is moderate foraminal narrowing. This level is similar with mildly improved canal patency. C6-C7: There is a small disc osteophyte complex formation. There is mild to moderate left and mild right foraminal narrowing. There is mild canal narrowing. This level similar to the prior study. C7-T1: There is no significant canal or foraminal stenosis. documented in this encounter Plan of Treatment Upcoming Encounters Date Type Department Care Team (Late st Contact Info) Description 04/10/2024 4:00 PM EST Appointment [facility] AT [address] [phone] documented as of this encounter Visit Diagnoses Not on filedocumented in this encounter Care Teams Security Coordinator Relationship Specialty Start Date End Date Noah Wagner MD [address] [place] [address] PCP - General Family Medicine 11/05/15 documented as of this encounter
--- OUTSIDE RECORDS SUMMARY | 2024-04-05 11:55 | XMS_ITS | Encounter Summary ---
Author Organization [facility] Address [address] [place] [address] Care Team Providers Care Business Rules Analyst Name Role Phone Noah Wagner MD Primary Care Provider [phone] Reason for Referral * Physical Therapy (Routine) - Closed Specialty Diagnoses / Procedures Referred By Renee t Referred To Contact Physical Therapy Diagnoses Cervical spondylosis with radiculopathy Shakeel Diego PA-C [facility] [address] [facility] [address] [place] [address] Phone: tel: fax: Referral ID Status Reason Start Date Expiration Date V isits Requested Visits Authorized [id number] Closed Specialty Services Required 11/02/2018 11/02/2019 1 1 Encounter Details Date Type Department Care Team (Latest Contact Info) Description 11/02/2018 8:30 AM EDT Office Visit [facility]IN [facility] [address] [facility] [address] [place] [id number] Shakeel Diego PA-C Cervical spondylosis with radiculopathy (Primary Dx); Lateral recess stenosis of cervical spine; Displacement of cervical intervertebral disc without myelopathy; History of fusion of cervical spine Social History Tobacco Use Types Packs/Day Years [...] Sign Reading Time Taken Comments Blood Pressure 134/80 11/02/2018 8:31 AM EDT Pulse 73 11/02/2018 8:31 AM EDT Temperature 36.5 ??C (97.7 ??F) 11/02/2018 8:31 AM ED T Respiratory Rate - - Oxygen Saturation 98% 11/02/2018 8:31 AM EDT Inhaled Oxygen Concentration - - Weight 76.7 kg (169 lb) 11/02/2018 8:31 AM EDT Height 172.7 cm (5' 8 ) 11/02/2018 8:31 AM EDT Body Mass Index 25.7 11/02/2018 8:31 AM EDT documented in this encounter Progress Notes * Shakeel Diego PA-C - 11/02/2018 8:30 AM EDT Chief Complaint: Neck and left shoulder pain. History of Present Illness: Patient: Mr. Arjun Melton, 53 y.o. male, with a 5-month history of neck pain, which began after a work related incident. Patient was last seen by Dr. Gomez on 08/24/2018 for an initial evaluation. He returns today for re- evaluation and to discuss treatment. Pain description: constant pain with intermittent exacerbation, described as dull sensation. Radiation of pain: The neck pain radiates into the posterior aspect of the left shoulder. Pain intensity today: 5-6/10 Average pain intensity last week: 7/10 Pain intensity ranges from: 4/10 to 8/10 Aggravating factors: Pain increases with driving at work and turning his cervical spine Alleviating factors: Pain decreases with lying flat with a very thin pillow. Associated symptoms: Patient reports numbness and weakness in the left shoulder. Patient denies any new bladder or bowel problems. Patient denies difficulties with his balance or recent falls. Patient reports bilateral occipital headaches lasting 2 hours 2-3 x per week. Review of previous therapies and additional medical records: Arjun Melton has already failed the following measures, including: Conservative measures: oral analgesics, physical therapy, ice and TENs Interventional measures: None Surgical measures: ACDF C5-C6 on 05/22/[address] Perales. ACDF C4-C5 on 09/08/[address] Perales. Arjun Melton underwent neurosurgical consultation with Dr. Victoriano Perales on 07/14/2018, and was found to be a potential surgical candidate for ACDF at C3-C4. Arjun Melton presents with significant comorbidities including insomnia and nicotine addiction, hypertension, engaged in treatment. In terms of current analgesics, Arjun Melton takes: Diclofenac I have reviewed Wagner Report #[id number], consistent to medication reconciliation. Global Pain Scale 08-24 Pain 17 16 Feelings 11 6 Clinical outcomes 12 11 Activities 7 1 GPS Total: 47 34 Review of Diagnostic Studies: MRI Cervical Spine- 06/09/2018: There is anterior fusion at C4-C5. There is fusion at C5-C6. There is a reversal of the normal lordotic curvature of the cervical spine. No discrete cord signal lesions are evident. Disc levels: C2-C3: small disc osteophyte complex formation with moderate articular facet disease. Mild to moderate narrowing of the foramen. C3-C4: disc osteophyte complex formation asymmetrically worse on the left. There is effacement of the cord surface and moderate canal stenosis. The neural foramina are moderately narrowed on the right and moderate to severely narrowed on the left. There is mildly worsening canal stenosis. C4-C5: There are hypertrophic endplate changes. Moderate to severe left and moderate right foraminal narrowing. Mild canal narrowing. The canal stenosis is improved from the prior study. C5-C6: Mild hypertrophic changes with abutment upon the ventral cord. Moderate foraminal narrowing.This level is similar with mildly improved canal patency. C6-C7: Small disc osteophyte complex formation. Mild to moderate left and mild right foraminal narrowing. Mild canal narrowing. C7-T1: No significant canal or foraminal stenosis. 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 Chronic left mid-cervical radiculopathy Review of Systems Musculoskeletal: Positive for myalgias, neck pain and neck stiffness. Allergic/Immunologic: Positive for environmental allergies. Psychiatric/Behavioral: Positive for agitation. All other systems reviewed and are negative. Patient Active Problem List Diagnosis ??? Cervical spondylosis with radiculopathy ??? Displacement of cervical intervertebral disc without myelopathy ??? Cervical spondylosis without myelopathy ??? History of fusion of cervical spine ??? Current every day smoker ??? Tobacco abuse counseling ??? Lateral recess stenosis of cervical spine ??? Insomnia due to medical condition Past Medical History: Diagnosis Date ??? Hypertension ??? Scarlet fever ??? Seizures (CMS/HCC) Past Surgical History: Procedure Laterality Date ??? ANTERIOR CERVICAL DISCECTOMY 05/22/2009 C5-6 ([facility]) ??? ANTERIOR CERVICAL DISCECTOMY 09/08/2015 C4-5 (Diaz) ??? NECK SURGERY 05/16/2008 ??? SHOULDER SURGERY 05/16/2008 Right History reviewed. No pertinent family history. Social History Socioeconomic History ??? Marital status: Spouse name: Not on file ??? Number of children: Not on file ??? Years of education: Not on file ??? Highest education level: Not on file Tobacco Use ??? Smoking status: Current Every Day Smoker Packs/day: 1.00 Types: Cigarettes Substance and Sexual Activity ??? Alcohol use: Yes Comment: 1xweek ??? Drug use: No Current Outpatient Medications: ??? acetaminophen (TYLENOL) 500 MG tablet, Take one tablet by mouth four times a day as needed for mild to moderate breakthrough pain, Disp: 120 tablet, Rfl: 5 ??? desipramine (NOPRAMIN) 10 MG tablet, 1-2 TABLETS AT BEDTIME, Disp: 60 tablet, Rfl: 5 ??? diclofenac (FLECTOR) 1.3 % patch patch, Apply 1 patch topically to the appropriate area as directed 2 (Two) Times a Day., Disp: 60 patch, Rfl: 5 ??? Dietary Management Product (RHEUMATE) capsule, Take 1 capsule twice daily, Disp: 180 capsule, Rfl: 1 ??? nicotine (NICODERM CQ) 14 MG/24HR patch, use 14 mg patch daily for 2 weeks, then use 7 mg patchdaily for 2 weeks, then, discontinue, Disp: 14 patch, Rfl: 0 ??? nicotine (NICODERM CQ) 21 MG/24HR patch, 1 patch daily for 4 weeks, then use 14 mg patch daily for 2 weeks, then use 7 mg patch daily for 2 weeks, then, discontinue, Disp: 28 patch, Rfl: 0 ??? nicotine (NICODERM CQ) 7 MG/24HR patch, use 7 mg patch daily for 2 weeks, then, discontinue, Disp: 14 patch, Rfl: 0 ??? vitamin B-6 (PYRIDOXINE) 100 MG tablet, Take 1 tablet by mouth Daily., Disp: 30 tablet, Rfl: 5 No Known Allergies BP 134/80 (BP Location: Left arm, Patient Position: Sitting) Pulse 73 Temp 97.7 ??F (36.5 ??C) (Temporal) Ht 172.7 cm (68 ) Wt 76.7 kg (169 lb) SpO2 98% BMI 25.70 kg/m?? Physical Exam: Constitutional: Patient is oriented to person, place, and time. Appears well- developed and well-nourished. Head: Normocephalic and atraumatic. Eyes: Conjunctivae and lids are normal. Pupils: Equal, round, and reactive to light. Neck: Trachea normal. Neck supple. No JVD present. Lymphatic: No cervical adenopathy Pulmonary: No increased work of breathing or signs of respiratory distress. Clear to auscultation bilaterally. Musculoskeletal Gait and station: Normal Cervical spine: Passive and active range of motion are limited secondary to pain. Extension, flexion, lateral flexion, rotation of the cervical spine increased and reproduced pain. Cervical facet joint loading maneuvers are positive. Muscles: Presence of active trigger points left levator scapulae and trapezius Shoulders: The range of motion of the glenohumeral joints is full and without pain. Rotator cuff strength is 5/5. Neurological: Patient is alert and oriented to person, place, and time. Speech: speech is normal. Cortical function: Normal mental status. Cranial nerves: Cranial nerves 2-12 intact. Reflex Scores: brachioradialis: 2+ bilaterally biceps: 2+ bilaterally triceps: 2+ bilaterally patellar: 1+ bilaterally Achilles: 1+ bilaterally Motor strength: 5/5 Motor Tone: normal tone. Involuntary movements: none. Right ankle clonus: absent Left ankle clonus: absent Spurling sign is negative. Lhermitte sign is negative. Negative long tract signs. Sensation: No sensory loss. Sensory exam: intact to light touch,??intact pain and temperature sensation,??intact vibration sensation??and??normal proprioception.?? Coordination: Normal finger to nose and heel to gray. Normal balance and??negative Romberg's sign Skin and subcutaneous tissue: Skin is warm and intact. No rash noted. No cyanosis. Psychiatric: Judgment and insight: Normal. Orientation to person, place and time: Normal. Recent and remote memory: Intact. Mood and affect: Normal. ASSESSMENT: 1. Cervical spondylosis with radiculopathy 2. Lateral recess stenosis of cervical spine 3. Displacement of cervical intervertebral disc without myelopathy 4. History of fusion of cervical spine PLAN/MEDICAL DECISION MAKING: I have reviewed all available medical records as well as previous therapies as referenced above, and discussed the patient with Dr. Gomez. 1. Interventional pain management measures: Patient will be scheduled for diagnostic and therapeutic left C3-C4 transforaminal epidural steroid injection. We may repeat another epidural depending on patient's outcome. Patient will follow-up with Dr. Perales thereafter. 2. Pharmacological measures: Reviewed and discussed. A. Take Tylenol 500 mg four times a day as needed for mild to moderate breakthrough pain 3. Long-term rehabilitation efforts: A. Resume a comprehensive physical therapy program for upper body strengthening/posture correction,gait and balance training, neurodynamics, myofascial release, cupping and dry needling B. Contrast therapy: Apply ice-packs for 15-20 minutes, followed by heating pads for 15-20 minutes to affected area 4. The patient has been instructed to contact my office with any questions or difficulties. The patient understands the plan and agrees to proceed accordingly. Patient Care Team: Noah Wagner MD as PCP - General (Family Medicine) Victoriano Perales MD as Consulting Physician (Neurosurgery) Chelsey Murphy MD as Consulting Physician (Internal Medicine) Renea Nicole PA as Physician Head Of Training And Development (Physician Head Of Training And Development) Jarett Gomez MD as Consulting Physician (Pain Medicine) No orders of the defined types were placed in this encounter. No future appointments. Shakeel Diego PA-C EMR Dragon/Binding Cutter disclaimer: Much of this encounter note is an electronic truck sales representative of spoken language to printed text. Electronic truck sales representative of spoken language may permit erroneous, or at times, nonsensical words or phrases to be inadvertently transcribed. Although I have reviewed the note for such errors, some may still exist. documented in this encounter Plan of Treatment Upcoming Encounters Date Type Department Care Team (Late st Contact Info) Description 04/10/2024 4:00 PM EST Appointment [facility] AT [address] [phone] documented as of this encounter Visit Diagnoses Diagnosis Cervical spondylosis with radiculopathy- Primary Cervical spondylosis with myelopathy Lateral recess stenosis of cervical spine Displacement of cervical intervertebral disc without myelopathy History of fusion of cervical spine Arthrodesis status documented in this encounter Care Teams Business Rules Analyst Relationship Specialty Start Date End Date Noah Wagner MD [address] [place] [address] PCP - General Family Medicine 11/05/15 documented as of this encounter
--- OUTSIDE RECORDS SUMMARY | 2024-04-05 11:55 | XMS_ITS | Encounter Summary ---
Author Organization [facility] Address [address] [place] [address] Care Team Providers Care Diaper Machine Tender Name Role Phone Noah Wagner MD Primary Care Provider [phone] Reason for Visit * Auth/Cert Specialty Diagnoses / Procedures Referred By Renee meza Referred To Contact Diagnoses Cervical spondylosis with radiculopathy Cervical spondylosis with radiculopathy [M47.22] Procedures DC ARTHRODESIS ANT INTERBODY INC DISCECTOMY, CERVICAL BELOW C2 DC ALLOGRAFT FOR SPINE SURGERY ONLY STRUCTURAL DC ANTERIOR INSTRUMENTATION 2-3 VERTEBRAL SEGMENTS CERVICAL DISCECTOMY ANTERIOR WITH FUSION C3-4 POSSBLE REMOVE OLD HARDWARE C4-5 Referral ID Status Reason Start Date Expiration Date Visits Re quested Visits Authorized [id number] 1 1 Encounter Details Date Type Department Care Team (Late st Contact Info) Description 12/31/2019 6:04 AM EDT - 12/31/2019 1:44 PM EDT Hospital Encounter [address] [place] [phone] Victoriano Perales MD [address] [place] [id number] Cervical spondylosis with radiculopathy Discharge Disposition: Home [...] Sign Reading Time Taken Comments Blood Pressure 152/82 12/31/2019 1:00 PM EDT Pulse 74 12/31/2019 10:31 AM EDT Temperature 36.6 ??C (97.8 ??F) 12/31/2019 12:40 PM E DT Respiratory Rate 18 12/31/2019 1:00 PM EDT Oxygen Saturation 97% 12/31/2019 1:00 PM EDT Inhaled Oxygen Concentration - - Weight - - Height - - Body Mass Index - - documented in this encounter Discharge Instructions * Attachments The following attachments cannot be sent through Care Everywhere. * Radicular Pain ([place]) documented in this encounter Medications at Time of Discharge metoprolol succinate XL (TOPROL-XL) 50 MG 24 hr tablet Take 50 mg by mouth Daily. acetaminophen (TYLENOL) 500 MG tablet Take one tablet by mouth four times a day as needed for mild to moderate breakthrough pain 120 tablet 5 08/24/2018 09/27/19 21 esomeprazole (nexIUM) 40 MG capsule Take 40 mg by mouth Every Morning Before Breakfast. 09/27/19 21 HYDROcodone-acetam inophen (NORCO) 10-325 MG per tabletIndications: Cervical spondylosis with radiculopathy Take 1 tablet by mouth 3 (Three) Times a Day As Needed for Moderate Pain (Pain). 20 tablet 12/31/2019 10:57 AM EDT 12/31/2019 01/10/20 20 triamterene-hydroc hlorothiazide (MAXZIDE-25) 37.5-25 MG per tablet Take 1 tablet by mouth Daily. 09/27/19 21 documented as of this encounter H&P Notes * Sridevi Omer PA - 12/31/2019 6:51 AM EDT Pre-Op H&P Arjun Melton [phone] [id number] Chief complaint: Right arm numbness to fingers HPI: Patient is a 54 y.o.male who presents with a previous history of ACDF C4-C5, and C5-C6. He recovered well from those surgeries. About 1.5 years ago began with right arm and finger numbness and neck pain which has persisted despite conservative treatment. He denies any recent changes in his presenting symptoms or in his general health. Review of Systems: General ROS: negative for chills, fever or skin lesions; No changes since last office visit. Neg for recent sick exposure Cardiovascular ROS: no chest pain or dyspnea on exertion Respiratory ROS: no cough, shortness of breath, or wheezing Allergies: No Known Allergies Home Meds: No current facility-administered medications on file prior to encounter. Current Outpatient Medications on File Prior to Encounter Medication Sig Dispense Refill ??? acetaminophen (TYLENOL) 500 MG tablet Take one tablet by mouth four times a day as needed for mild to moderate breakthrough pain 120 tablet 5 PMH: Past Medical History: Diagnosis Date ??? Arthritis ??? COPD (chronic obstructive pulmonary disease) (CMS/HCC) mild ??? GERD (gastroesophageal reflux disease) ??? Hypertension ??? PONV (postoperative nausea and vomiting) ??? Scarlet fever ??? Wears partial dentures upper PSH: Past Surgical History: Procedure Laterality Date ??? ANTERIOR CERVICAL DISCECTOMY 05/22/2009 C5-6 (Diaz) ??? ANTERIOR CERVICAL DISCECTOMY 09/08/2015 C4-5 (Diaz) ??? COLONOSCOPY apprx 15 years ago ??? NECK SURGERY 05/16/2008 ??? SHOULDER SURGERY 05/16/2008 Right Immunization History: Influenza: no Pneumococcal: no Tetanus: yes Social History: Tobacco: Social History Tobacco Use Smoking Status Current Every Day Smoker ??? Packs/day: 1.00 ??? Types: Cigarettes Smokeless Tobacco Never Used Alcohol: Social History Substance and Sexual Activity Alcohol Use Yes Comment: 1xweek Vitals: There were no vitals taken for this visit. Physical Exam: General Appearance: Alert, cooperative, no distress, appears stated age Head: Normocephalic, without obvious abnormality, atraumatic Lungs: Clear to auscultation bilaterally, respirations unlabored Heart: Regular rate and rhythm, S1 and S2 normal, no murmur, rub or gallop Abdomen: Soft, nontender. +bowel sounds Breast Exam: deferred Genitalia: deferred Extremities: Extremities normal, atraumatic, no cyanosis or edema Skin: Skin color, texture, turgor normal, no rashes or lesions Neurologic: Grossly intact Results Review LABS: Lab Results Component Value Date WBC 8.96 12/28/2019 HGB 12.3 (L) 12/28/2019 HCT 39.5 12/28/2019 MCV 84.9 12/28/2019 PLT 467 (H) 12/28/2019 K 4.5 12/28/2019 RADIOLOGY: Imaging Results (Last 72 Hours) No results found for the last 72 hours. I reviewed the patient's new clinical results. EKG, CBC, K+ on chart. Covid-neg Cancer Staging (if applicable) Cancer Patient: __ yes _x_no __unknown; If yes, clinical stage T:__ N:__M:__, stage group or __N/A Impression: Cervical spondylosis with radiculopathy Plan: For anterior cervical discectomy and fusion C3-C4, removal of old hardware C4-C5 today ISAÍAS [place] 12/31/2019 06:52 Cosigned by Victoriano Perales MD at 12/31/2019 7:25 AM EDT documented in this encounter Nursing Notes * Yara Duran RN - 12/31/2019 10:49 AM EDT Pt arrived from PACU c/o pain. He was able to walk to bathroom and then to bed. Medicated and is now sleeping between care. Plan is to monitor for 4 hours beginning at 945. documented in this encounter OR Notes * Op Note - Victoriano Perales MD - 12/31/2019 8:06 AM EDT NEUROSURGICAL OPERATIVE NOTE PREOPERATIVE DIAGNOSIS: Cervical spondylosis with radiculopathy POSTOPERATIVE DIAGNOSIS: Same PROCEDURE: 1. Arthrodesis C3-4 2. Anterior cervical discectomy with microdissection at C3-4 3. Zevo anterior plating C3-4 4. Composite allografting C3-4 5. Removal of old hardware C4-5 SURGEON: Victoriano Perales M.D. VISUAL SPECIALIST: Ania Bliss PA-C PAC assisted with: Suctioning Retraction Tying Suturing Closing Application of dressing Skilled neurosurgery PA assistance was necessary to perform this procedure. ANESTHESIA: General ESTIMATED BLOOD LOSS: Minimal SPECIMEN: None DRAINS: None COMPLICATIONS: None CLINICAL NOTE: The patient is a 54-year-old gentleman who has previously undergone ACDF at C5-6 then at a later date at C4-5. He has developed progressive pain in his neck extending into his shoulders, right greater than left. Studies demonstrate significant spondylosis with nerve root compromise at C3-4. As suchhe presents at this time for ACDF at C3-4. It was felt that it would be necessary to remove his oldhardware to gain access and pursue stabilization at the C3-4 level. The nature of the procedure as well as the potential risks, complications, limitations, and alternatives to the procedure were discussed at length with the patient and the patient has agreed to proceed with surgery. TECHNICAL NOTE: The patient was brought to the operating room and placed on the operating room table in the supine position. General endotracheal anesthesia was achieved. His neck was mildly extended with a roll placed transversely under his shoulders. His anterior neck was prepared and draped in the usual fashion. A mildly curved incision was fashioned approximately 1-1/2 finger widths above the prior left-sided incision. This was from the midline leftward. Underlying subcutaneous tissues were undermined. Theplatysma was divided longitudinally. Scar tissue was taken down. Working medially to the belly of the sternocleidomastoid muscle, I was ultimately able to gain access to the spine and the prior platewhich was exposed. I then worked above that. Once again, the disc space was very proximate to the upper end of the plate. The screws and the old plate were backed out, and using a Avila elevator and a mallet, the plate was elevated and removed. The previous screw holes were filled with Floseal and tamponaded. Longus colli muscle was mobilized from the spine at the C3-4 level, self-retaining retractor to provide [id number] exposure. Radiograph confirmed the operative level. The disc at C3-4 was incised and evacuated piecemeal with an array of pituitary rongeurs and curettes. Kerrison punches were utilized to remove endplate osteophytes. The operating microscope was brought into use and discectomy was completed. The posterior longitudinal ligament was taken down with Carmella knife and Karlincurettes. The neural foramina were widely decompressed with Kerrison punches. At completion of the procedure, the thecal sac and nerve roots were well decompressed. An angled microball probe could easily be passed along the nerve roots into the foramina. Endplates were decorticated and a small ledge of bone was left posteriorly on each endplate. A 5 mm lordotic composite allograft was impacted into place. Anterior osteophytes were resected with the drill and then a 17 mm ZEVO plate was affixed to the anterior spine at C3-4 using 13 mm variable angle screws bilaterally at C3 and C4. The locking CAM was engaged. The wound was washed out with a saline solution. Very modest bleeding points were controlled with bipolar cautery. The platysma was reapproximated in an interrupted fashion with 3-0Vicryl suture. The skin was closed in a running subcuticular fashion with 3-0 Vicryl suture. A dermal sealant was applied. Completion fluoroscopy confirmed good positioning of the construct at the C3-4 level. The patient did receive preoperative antibiotics and Decadron. He was subsequently extubated and taken to recovery room in satisfactory condition. Victoriano Perales M.D. documented in this encounter Plan of Treatment Upcoming Encounters Date Type Department Care Team (Late st Contact Info) Description 04/10/2024 4:00 PM EST Appointment [facility] AT [address] [phone] documented as of this encounter Procedures Procedure Name Priority Date/Time Associated Diagnosis Comments FL C ARM DURING SURGERY Routine 12/31/2019 9:32 AM EDT DC ARTHRD ANT INTERBODY DECOMPRESS CERVICAL BELW C2 12/31/2019 7:26 AM EDT Cervical spondylosis with radiculopathy Special Needs FILMS AT [facility] C-ARM+ documented in this encounter Results * FL C Arm During Surgery (12/31/2019 9:32 AM EDT) Anatomical Region Laterality Modality Body, Other N/A Radio Fluoroscop y 12/31/2019 9:59 AM EDT Impressions 12/31/2019 5:04 PM EDT Intraoperative fluoroscopy was utilized during C3-C4 ACDF D: ??12/31/2019 E: ??12/31/2019 ?? This report was finalized on 12/31/2019 5:[address] Huang Avila. Narrative 12/31/2019 5:04 PM EDT EXAMINATION: FL C ARM DURING SURGERY- 12/31/2019 INDICATION: ACDF; M47.22-Other spondylosis with radiculopathy, cervical region TECHNIQUE: Intraoperative fluoroscopy for improved localization and treatment planning COMPARISON: NONE FINDINGS: Intraoperative fluoroscopy with total fluoroscopic time usage 5 seconds and 4 images saved during C3-C4 ACDF. Procedure Note Huang Avila DO - 12/31/2019 EXAMINATION: FL C ARM DURING SURGERY- 12/31/2019 INDICATION: ACDF; M47.22-Other spondylosis with radiculopathy, cervical region TECHNIQUE: Intraoperative fluoroscopy for improved localization and treatment planning COMPARISON: NONE FINDINGS: Intraoperative fluoroscopy with total fluoroscopic time usage 5 seconds and 4 images saved during C3-C4 ACDF. IMPRESSION: Intraoperative fluoroscopy was utilized during C3-C4 ACDF E: 12/31/2019 This report was finalized on 12/31/2019 5:[address] Huang Avila. Victoriano Perales MD IMG FLUOROSCOPY ORDERABLES Fi nal Result documented in this encounter Visit Diagnoses Diagnosis Cervical spondylosis with radiculopathy- Primary Cervical spondylosis with myelopathy Cervical spondylosis with radiculopathy Cervical spondylosis with myelopathy documented in this encounter Admitting Diagnoses Diagnosis Cervical spondylosis with radiculopathy Cervical spondylosis with myelopathy documented in this encounter Administered Medications Inactive Administered Medications - up to 3 most recent administrations Medication Order MAR Action Action Date Dose Rate Site famotidine (PEPCID) tablet 20 mg 20 mg, Oral, Once, On 12/31/19 at 0624, For 1 dose Given 12/31/2019 7:02 AM EDT 20 mg hydrALAZINE (APRESOLINE) injection 5 mg 5 mg, Intravenous, Every 10 Minutes PRN, High Blood Pressure, for systolic blood pressure greater than 160mmHg or diastolic blood pressure greater than 105 mmHg, Starting on Tue12/31/19 at 0948, Up to 20 mg. Caution: Look alike/sound alike drug alert Given 12/31/2019 10:02 AM EDT 5 mg HYDROcodone-acetaminophen (NORCO) 10-325 MG per tablet 1 tablet 1 tablet, Oral, Once As Needed, Moderate Pain, Starting on Tue12/31/19 at 1030, For 1 dose, [JUSTA] Do not exceed 4 grams of acetaminophen in a 24 hr period. If given for pain, use the following pain scale: Mild Pain = Pain Score of 1-3, CPOT 1-2 Moderate Pain = Pain Score of 4-6, CPOT 3-4 Severe Pain = Pain Score of 7-10, CPOT 5-8 Given 12/31/2019 10:38 AM EDT 1 tablet labetalol (NORMODYNE,TRANDATE) injection 5 mg 5 mg, Intravenous, Every 5 Minutes PRN, High Blood Pressure, for systolic blood pressure greater than 180 mmHg or diastolic blood pressure greater than 105 mmHg, Starting on Tue12/31/19 at 0948, Hold for heart rate less than 60. Give by slow IV Push each 20mg (or less) over 2 minutes Given 12/31/2019 10:12 AM EDT 5 mg lactated ringers infusion 9 mL/hr, Intravenous, Continuous, Starting on Tue12/31/19 at 0624, May switch to NS IV at [facility] if renal / if indicated Currently Infusing 12/31/2019 7:43 AM EDT New Bag 12/31/2019 6:45 AM EDT 9 mL/hr 9 mL/hr lidocaine PF 1% (XYLOCAINE) injection 0.5 mL 0.5 mL, Injection, Once As Needed, IV Start, Starting on Tue12/31/19 at 0622, For 1 dose Given 12/31/2019 6:45 AM EDT 0.2 mL Scopolamine (TRANSDERM-SCOP) 1.5 MG/3DAYS patch 1 patch 1 patch, Transdermal, Administer over 24 Hours, Continuous, Starting on Tue12/31/19 at 0735, For 24 hours, {BKC} Medication Applied 12/31/2019 7:40 AM EDT 1 patch Behind Left Ear documented in this encounter Active and Recently Administered Medications Times are shown in EDT. Scheduled Medication Order 12/29/2019 12/30/2019 12/31/2019 ceFAZolin in dextrose (ANCEF) IVPB solution 2 g (COMPLETED) 2 g, Intravenous, Administer over 30 Minutes, Once, On Tue12/31/19 at 0624, For 1 dose, Administer within 1 hour of surgical incision. Redose 4 hours from pre-op dose if procedure ongoing or >1.5 L blood loss. Caution: Look alike/sound alike drug alert, Indications: Surgical Prophylaxis 0755 (Given - Provid er: Afshin Haile CRNA) Dexamethasone Sod Phos-NaCl 10-0.9 MG/50ML-% IVPB solution 10 mg (COMPLETED) 10 mg, Intravenous, 30 min pre-op, Starting on Tue12/31/19 at 0622, For 1 dose, Administer over 5 to 15 minutes. 0755 (Given - Provid er: Afshin Haile CRNA) famotidine (PEPCID) tablet 20 mg (COMPLETED) 20 mg, Oral, Once, On Tue12/31/19 at 0624, For 1 dose 0702 (Given - Provid er: Emerald Horn RN) Continuous Medication Order 12/29/2019 12/30/2019 12/31/2019 lactated ringers infusion 9 mL/hr, Intravenous, Continuous, Starting on Tue12/31/19 at 0624, May switch to NS IV at [facility] if renal / if indicated 0645 (New Bag - Prov ider: Emerald Horn RN)0743 (Currently Infusing - Provider: Afshin Haile CRNA)0830 (Anesthesia Volume Adjustment - Provider: Afshin Haile CRNA)0900 (Anesthesia Volume Adjustment - Provider: Afshin Haile CRNA) Scopolamine (TRANSDERM-SCOP) 1.5 MG/3DAYS patch 1 patch 1 patch, Transdermal, Administer over 24 Hours, Continuous, Starting on Tue12/31/19 at 0735, For 24 hours, {BKC} 0740 (Medication Robby lied - Provider: Emerald Horn RN)1344 (Due: Medication Removed - Provider: Automatic Discharge Provider - Comment: Time automatically adjusted from order being discontinued) PRN Medication Order 12/29/2019 12/30/2019 12/31/2019 floseal injection (CANCELED) As Needed, Starting on Tue12/31/19 at 0824 0824 (Given - Provid er: Victoriano Perales MD) gelatin absorbable 1 each, thrombin 5,000 Units mixture (CANCELED) As Needed, Starting on Tue12/31/19 at 0816 0816 (Given - Provid er: Victoriano Perales MD) hydrALAZINE (APRESOLINE) injection 5 mg (CANCELED) 5 mg, Intravenous, Every 10 Minutes PRN, High Blood Pressure, for systolic blood pressure greater than 160mmHg or diastolic blood pressure greater than 105 mmHg, Starting on Tue12/31/19 at 0948, Up to 20 mg. Caution: Look alike/sound alike drug alert 1002 (Given - Provid er: Ilia Welsh RN) HYDROcodone-acetaminophen (NORCO) 10-325 MG per tablet 1 tablet (COMPLETED) 1 tablet, Oral, Once As Needed, Moderate Pain, Starting on Tue12/31/19 at 1030, For 1 dose, [JUSTA] Do not exceed 4 grams of acetaminophen in a 24 hr period. If given for pain, use the following pain scale: Mild Pain = Pain Score of 1-3, CPOT 1-2 Moderate Pain = Pain Score of 4-6, CPOT 3-4 Severe Pain = Pain Score of 7-10, CPOT 5-8 1038 (Given - Provid er: Yara Duran RN) labetalol (NORMODYNE,TRANDATE) injection 5 mg (CANCELED) 5 mg, Intravenous, Every 5 Minutes PRN, High Blood Pressure, for systolic blood pressure greater than 180 mmHg or diastolic blood pressure greater than 105 mmHg, Starting on Tue12/31/19 at 0948, Hold for heart rate less than 60. Give by slow IV Push each 20mg (or less) over 2 minutes 1012 (Given - Provid er: Ilia Welsh RN) lidocaine PF 1% (XYLOCAINE) injection 0.5 mL (COMPLETED) 0.5 mL, Injection, Once As Needed, IV Start, Starting on Tue12/31/19 at 0622, For 1 dose 0645 (Given - Provid er: Emerald Horn RN) sodium chloride 0.9 % solution (CANCELED) As Needed, Starting on 12/31/19 at 0816 0816 (Given - Provid er: Victoriano Perales MD) documented in this encounter Care Teams Diaper Machine Tender Relationship Specialty Start Date End Date Noah Wagner MD [address] [place] [address] PCP - General Family Medicine 11/05/15 documented as of this encounter
--- OUTSIDE RECORDS SUMMARY | 2024-04-05 11:55 | XMS_ITS | Encounter Summary ---
Author Organization [facility] Address [address] [place] [address] Care Team Providers Care Document Specialist Name Role Phone Noah Wagner MD Primary Care Provider [phone] Reason for Referral * Physical Therapy (Routine) - Closed Specialty Diagnoses / Procedures Referred By Contac t Referred To Contact Physical Therapy Diagnoses S/P cervical spinal fusion Cervical spondylosis with radiculopathy Victoriano Perales MD [address] [address] Phone: tel: fax: [facility] [address] [place] [id number] Phone: tel: fax: Referral ID Status Reason Start Date Expiration Date Visits Requested Visits Authorized [id number] Closed Patient Preference 04/18/2020 04/18/2021 1 1 Encounter Details Date Type Department Care Team (Late st Contact Info) Description 04/18/2020 Telephone [facility] [address] [facility] [address] [place] [address] Ana Maria Edwards, MA Social History Tobacco Use Types Packs/Day Years [...] encounter Miscellaneous Notes * Telephone Encounter - Ana Maria Edwards MA - 04/18/2020 2:31 PM EST Updated PT order signed. documented in this encounter Plan of Treatment Upcoming Encounters Date Type Department Care Team (Late st Contact Info) Description 04/10/2024 4:00 PM EST Appointment [facility] [address] [place] [phone] Scheduled Referrals Name Type Priority Associated Diagnoses Orde r Schedule Ambulatory Referral to Physical Therapy Evaluate and treat; Stretching, ROM, Strengthening Outpatient Referral Routine S/P cervical spinal fusion Cervical spondylosis with radiculopathy Ordered: 04/18/2020 documented as of this encounter Visit Diagnoses Diagnosis S/P cervical spinal fusion- Primary Arthrodesis status Cervical spondylosis with radiculopathy Cervical spondylosis with myelopathy documented in this encounter Care Teams Document Specialist Relationship Specialty Start Date End Date Noah Wagner MD [address] [place] [address] PCP - General Family Medicine 11/05/15 documented as of this encounter
--- OUTSIDE RECORDS SUMMARY | 2024-04-05 11:55 | XMS_ITS | Encounter Summary ---
[facility] Organization [facility] Address [address] [place] [address] Care Team Providers Care Pelota Maker Name Role Phone Noah Wagner MD Primary Care Provider Reason for Visit * (Routine) - Closed Specialty Diagnoses / Procedures Referred By Renee t Referred To Contact Radiology Diagnoses S/P cervical spinal fusion Cervical spondylosis with radiculopathy Procedures XR Spine Cervical 2 View Ania Bliss PA-C Phone: tel: fax: Referral ID Status Reason Start Date Expiration Date Visits Re quested Visits Authorized [id number] Closed 05/21/2020 05/21/2021 1 1 Encounter Details Date Type Department Care Team (Latest Contact Info) Description 09/26/2020 12:53 PM EDT - 09/26/2020 11:59 PM EDT Hospital Encounter [address] [phone] Ania Bliss PA-C [address] [place] [address] Discharge Disposition: Home or Self Care Social [...] this encounter Medications at Time of Discharge albuterol sulfate HFA 108 (90 Base) MCG/ACT inhaler 09/10/2020 cetirizine (zyrTEC) 10 MG tablet Take 10 mg by mouth Daily. 09/10/2020 famotidine (PEPCID) 20 MG tablet Take 20 mg by mouth Daily. 09/10/2020 lisinopril (PRINIVIL,ZESTRI L) 10 MG tablet Take 10 mg by mouth Daily. 01/04/2020 metoprolol succinate XL (TOPROL-XL) 50 MG 24 hr tablet Take 50 mg by mouth Daily. Trelegy Ellipta 100-62.5-25 MCG/INH inhaler Inhale 1 puff Daily. 09/10/2020 triamcinolone (KENALOG) 0.1 % cream APPLY CREAM EXTERNALLY THREE TIMES DAILY 08/20/2020 documented as of this encounter Plan of Treatment Upcoming Encounters Date Type Department Care Team (Late st Contact Info) Description 04/10/2024 4:00 PM EST Appointment [facility] AT [address] [phone] documented as of this encounter [...] in the lung apices. Procedure Note Huang Avila, DO - 09/29/2020 EXAMINATION: XR SPINE CERVICAL [...] on filedocumented in this encounter Care Teams Pelota Maker Relationship Specialty Start Date End Date oNah Wagner MD [address] [place] [address] PCP - General Family Medicine 11/05/15 documented as of this encounter
--- OUTSIDE RECORDS SUMMARY | 2024-04-05 11:55 | XMS_ITS | Encounter Summary ---
Author Organization [facility] Address [address] [place] [id number] Care Team Providers Care Aed Trainer Name Role Phone Noah Wagner MD Primary Care Provider [phone] Reason for Referral * (Routine) - Closed Specialty Diagnoses / Procedures Referred By Contac t Referred To Contact Radiology Diagnoses Cervical spondylosis with radiculopathy Procedures XR spine cervical 2 or 3 vw Victoriano Perales MD [address] [place] [address] Phone: tel: fax: Referral ID Status Reason Start Date Expiration Date Visits Re quested Visits Authorized [id number] Closed 01/09/2020 01/08/2021 1 1 Encounter Details Date Type Department Care Team (Late st Contact Info) Description 01/09/2020 Refill [facility] [address] [place] [id number] Victoriano Perales MD [address] [place] [address] Cervical spondylosis with radiculopathy (Primary Dx) Social [...] as of this encounter Progress Notes * Fritz No MA - 01/10/2020 5:39 PM EDTAddended by: FRITZ NO on: 01/10/2020 05:39 PM Modules accepted: Orders documented in this encounter Miscellaneous Notes * Telephone Encounter - Fritz No MA - 01/11/2020 4:02 PM EDT Rx signed and placed in the mail. * Telephone Encounter - Fritz No MA - 01/10/2020 5:36 PM EDT S/w pt He requests rf on [employer]. Please mail to verified mailing address. Wagner: 12/31/2019 Hydrocodone Bitartrate/Ac 325MG/10MG 1963 20 7 TIEN [facility] 29 1 * Telephone Encounter - Paz Roberts MA - 01/09/2020 2:22 PM EDT Patient left message requesting a refill on medication. He did not mention the name of medication. I attempted to call him back however the phone kept ringing with now ending to leave a message. * Telephone Encounter - Paz Roberts MA - 01/09/2020 12:00 PM EDT Order entered. * Telephone Encounter - Melissa Cali - 01/09/2020 11:34 AM EDT Can someone please place orders for AP and Lateral Cervical Spine X rays for this patients post op follow up? documented in this encounter Plan of Treatment Upcoming Encounters Date Type Department Care Team (Late st Contact Info) Description 04/10/2024 4:00 PM EST Appointment [facility] [place] [address] documented as of this encounter Results * XR Spine Cervical 2 or 3 View (01/22/2020 11:19 AM EDT) Anatomical Region Laterality Modality Spine, C-spine N/A Radiographic Irina ging 01/22/2020 12:1 8 PM EDT Impressions 01/22/2020 12:20 PM EDT Interval extension of previously noted fusion, now including C3-C4 with anterior hardware noted. This report was finalized on 01/22/2020 12:20 PM by Jeremi Hill. Narrative 01/22/2020 12:20 PM EDT EXAMINATION: XR SPINE CERVICAL 2 OR 3 VW- INDICATION: s/p acdf; M47.22-Other spondylosis with radiculopathy, cervical region COMPARISON: 12/20/2018 FINDINGS: Interval removal of previously noted C4-5 anterior fusion construct and placement of anterior plate and screws with interbody cage at C3-C4. Satisfactory fusion of the caudal levels. No evident hardware complication. The imaged lung apices are clear. Procedure Note Jeremi Hill MD - 01/22/2020 EXAMINATION: XR SPINE CERVICAL 2 OR 3 VW- INDICATION: s/p acdf; M47.22-Other spondylosis with radiculopathy, cervical region COMPARISON: 12/20/2018 FINDINGS: Interval removal of previously noted C4-5 anterior fusion construct and placement of anterior plate and screws with interbody cage at C3-C4. Satisfactory fusion of the caudal levels. No evident hardware complication. The imaged lung apices are clear. IMPRESSION: Interval extension of previously noted fusion, now including C3-C4 with anterior hardware noted. This report was finalized on 01/22/2020 12:20 PM by Jeremi Hill. us Victoriano Perales MD IMG DIAGNOSTIC IMAGING ORDERA BLES Final Result documented in this encounter Visit Diagnoses Diagnosis Cervical spondylosis with radiculopathy- Primary Cervical spondylosis with myelopathy Cervical spondylosis with radiculopathy Cervical spondylosis with myelopathy documented in this encounter Care Teams Aed Trainer Relationship Specialty Start Date End Date Noah Wagner MD [address] [place] [address] PCP - General Family Medicine 11/05/15 documented as of this encounter
--- OUTSIDE RECORDS SUMMARY | 2024-04-05 11:55 | XMS_ITS | Encounter Summary ---
Author Organization [facility] Address [address] [place] [id number] Care Team Providers Care Newspaper Inserter Name Role Phone Noah Wagner MD Primary Care Provider [phone] Reason for Visit * Reason Onset Date Comments OVERMYER- CONSULT NOTES/ WORKER COMP 05/27/2020 Encounter Details Date Type Department Care Team (Late st Contact Info) Description 05/27/2020 Telephone [facility] NEUR[facility]ERY [address] [address] Ania Bliss PA-C [address] [place] [address] VINCEMYER- CONSULT NOTES/ WORKER COMP Social History Tobacco Use Types Packs/Day Years [...] * Telephone Encounter - Jess Merida - 05/28/2020 11:14 AM EST Faxed as requested. Jae * Telephone Encounter - Polina Patton - 05/28/2020 10:39 AM EST Routing message to Jess. * Telephone Encounter - Azul Oh MA - 05/27/2020 4:36 PM EST I believe this is for you. TY * Telephone Encounter - Cruz Manning RegSched Rep - 05/27/2020 4:08 PM EST Caller: ARABELLA FROM W/C Relationship: Payer Best call back number: [phone] What form or medical record are you requesting: OFFICE NOTE FROM 05/21 Who is requesting this form or medical record from you: WORKER COMP How would you like to receive the form or medical records (pick-up, mail, fax): FAX If fax, what is the fax number: [phone] Timeframe paperwork needed: SOON POSSIBLE OR TUE (05/30) Additional notes: WORKER COMP CALLED REQUESTING THE FOLLOWING MEDICAL RECORD(S) TO BE FAXED FOR CONTINUATION OF CARE. OFFICE CAN BE CONTACTED WITH AN UPDATE. documented in this encounter Plan of Treatment Upcoming Encounters Date Type Department Care Team ([facility] st Contact Info) Description 04/10/2024 4:00 PM EST Appointment [facility] [address] [place] [address] documented as of this encounter Visit Diagnoses Not on filedocumented in this encounter Care Teams Newspaper Inserter Relationship Specialty Start Date End Date Noah Wagner MD [address] [place] [address] PCP - General Family Medicine 11/05/15 documented as of this encounter
--- OUTSIDE RECORDS SUMMARY | 2024-04-05 11:55 | XMS_ITS | Encounter Summary ---
Author Organization [facility] Address [address] [place] [id number] Care Team Providers Care Pump Servicer Helper Name Role Phone Noah Wagner MD Primary Care Provider Reason for Visit * Reason Onset Date Comments JUSTINA 10/02/2020 Encounter Details Date Type Department Care Team (Late st Contact Info) Description 10/02/2020 Telephone [facility] NEUROS[facility]ERY [address] [facility] [address] [place] [address] Ania Bliss, BOONE [address] [place] [address] JUSTINA Social History Tobacco Use Types Packs/Day Years [...] * Telephone Encounter - Jess Merida - 10/02/2020 3:51 PM EDT Faxed as requested. Jae * Telephone Encounter - Rosemary Patton RegSched Rep - 10/02/2020 3:28 PM EDT ARABELLA Simpson/ [facility] OV 09/26 FAXED TO HER. PLEASE ADVISE [phone] FAX [phone] - ARABELLA documented in this encounter Plan of Treatment Upcoming Encounters Date Type Department Care Team (Late st Contact Info) Description 04/10/2024 4:00 PM EST Appointment [facility] [address] [place] [address] documented as of this encounter Visit Diagnoses Not on filedocumented in this encounter Care Teams Pump Servicer Helper Relationship Specialty Start Date End Date Noah Wagner MD [address] [place] [address] PCP - General Family Medicine 11/05/15 documented as of this encounter
--- OUTSIDE RECORDS SUMMARY | 2024-04-05 11:55 | XMS_ITS | Encounter Summary ---
Author Organization [facility] Address [address] [place] [id number] Care Team Providers Care Field Enumerator Name Role Phone Noah Wagner MD Primary Care Provider [phone] Reason for Referral * (Routine) - Closed Specialty Diagnoses / Procedures Referred By Contac t Referred To Contact Radiology Diagnoses Cervical spondylosis with radiculopathy Procedures XR spine cervical 2 or 3 vw Victoriano Perales MD [address] [place] [address] Phone: tel: fax: Referral ID Status Reason Start Date Expiration Date Visits Re quested Visits Authorized [id number] Closed 01/09/2020 01/08/2021 1 1 Reason for Visit * (Routine) - Closed Specialty Diagnoses / Procedures Referred By Contac t Referred To Contact Radiology Diagnoses Cervical spondylosis with radiculopathy Procedures XR spine cervical 2 or 3 vw Victoriano Perales MD [address] [place] [address] Phone: tel: fax: Referral ID Status Reason Start Date Expiration Date Visits Re quested Visits Authorized [id number] Closed 01/09/2020 01/08/2021 1 1 Encounter Details Date Type Department Care Team (Late st Contact Info) Description 01/22/2020 11:12 AM EDT - 01/22/2020 11:59 PM EDT Hospital Encounter [facility] XRAY [address] [place] [phone] Victoriano Perales MD [address] [facility] [address] [place] [address] Cervical spondylosis with radiculopathy Discharge Disposition: Home [...] this encounter Medications at Time of Discharge lisinopril (PRINIVIL,ZESTRIL) 10 MG tablet Take 10 mg by [...] Needed for Moderate Pain (Pain). 20 tablet 01/11/2020 03/04/20 20 methylPREDNISolone (MEDROL) 4 MG dose pack Take as directed on package instructions. 21 tablet 01/22/2020 03/04/20 20 triamterene-hydroc hlorothiazide (MAXZIDE-25) 37.5-25 MG per tablet Take 1 tablet by mouth Daily. 09/27/19 21 documented as of this encounter Plan of Treatment Upcoming Encounters Date Type Department Care Team (Late st Contact Info) Description 04/10/2024 4:00 PM EST Appointment [facility] AT [address] [address] documented as of this encounter Procedures Procedure Name Priority Date/Time Associated Diagnosis Comments XR SPINE CERVICAL 2 OR 3 VW Routine 01/22/2020 11:19 AM EDT Cervical spondylosis with radiculopathy documented [...] on 01/22/2020 12:20 PM by Jeremi Hill. Victoriano Perales MD IMG DIAGNOSTIC IMAGING ORDERA BLES Final Result documented in this encounter Visit Diagnoses Diagnosis Cervical spondylosis with radiculopathy Cervical spondylosis with myelopathy documented in this encounter Care Teams Field Enumerator Relationship Specialty Start Date End Date Noah Wagner MD [address] [place] [address] PCP - General Family Medicine 11/05/15 documented as of this encounter
--- OUTSIDE RECORDS SUMMARY | 2024-04-05 11:55 | XMS_ITS | Encounter Summary ---
Author Organization [facility] Address [address] [place] [address] Care Team Providers Care Prime Minister Name Role Phone Noah Wagner MD Primary Care Provider [phone] Reason for Visit * Pain Management (Routine) - Closed Specialty Diagnoses / Procedures Referred By Renee t Referred To Contact Pain Medicine Diagnoses Cervical radiculopathy Victoriano Perales MD [address] [place] [address] Phone: tel: fax: Jarett Gomez MD [address] [place] [address] Phone: tel: fax: Referral ID Status Reason Start Date Expiration Date V isits Requested Visits Authorized [id number] Closed Specialty Services Required 07/14/2018 07/14/2019 1 1 Encounter Details Date Type Department Care Team (Late st Contact Info) Description 08/24/2018 8:00 AM EDT Office Visit [facility] [address] [address] Jarett Gomez MD [address] [place] [address] Cervical spondylosis with radiculopathy; Lateral recess stenosis of cervical spine; Displacement of cervical intervertebral disc without myelopathy; History of fusion of cervical spine; Insomnia due to medical condition; Current every day smoker; Tobacco abuse counseling Social History Tobacco Use Types Packs/Day Years [...] Sign Reading Time Taken Comments Blood Pressure 148/88 08/24/2018 8:09 AM EDT Pulse 69 08/24/2018 8:09 AM EDT Temperature 36.6 ??C (97.8 ??F) 08/24/2018 8:09 AM ED T Respiratory Rate 18 08/24/2018 8:09 AM EDT Oxygen Saturation 98% 08/24/2018 8:09 AM EDT Inhaled Oxygen Concentration - - Weight 78.4 kg (172 lb 12.8 oz) 08/24/2018 8:09 AM EDT Height 172.7 cm (5' 8 ) 08/24/2018 8:09 AM EDT Body Mass Index 26.27 08/24/2018 8:09 AM EDT documented in this encounter Progress Notes * Jarett Gomez MD - 08/24/2018 8:00 AM EDT Chief Complaint: Pain in my neck and left shoulder. History of Present Illness: Patient: Mr. Arjun Melton, 52 y.o. male Referring physician: Dr. Victoriano Perales Reason for referral: Consultation for intractable chronic neck pain. Pain history: Patient reports a 3-month history of unrelenting neck pain, which began after a work related incident. Patient has a history of ACDF at C5-C6, on 05/22/[address] Perales, and ACDF C4-C5on 09/08/[address] Perales. Pain has progressed in intensity over the past 3 months. Pain description: constant pain with intermittent exacerbation, described as dull sensation. Radiation of pain: The neck pain radiates into the posterior aspect of the left shoulder. Pain intensity today: 6/10 Average pain intensity last week: 5/10 Pain intensity ranges from: 3/10 to 7/10 Aggravating factors: Pain increases with driving at [...] TENs Interventional measures: None Surgical measures: ACDF C5-C6, 05/22/2009 Dr Perales, ACDF C4-C5 09/08/2015 Dr. Perales Arjun Melton underwent neurosurgical consultation with Dr. Victoriano Perales on 07/14/2018, and was found to be a potential surgical candidate for ACDF at C3-C4. Arjun Melton presents with significant comorbidities including insomnia and nicotine addiction, hypertension, engaged in treatment. In terms of current analgesics, Arjun Melton takes: Diclofenac I have reviewed Wagner Report #[id number] consistent to medication reconciliation. Global Pain Scale 08-24 Pain 17 Feelings 11 Clinical outcomes 12 Activities 7 GPS Total: 47 Review of Diagnostic Studies: MRI Cervical Spine, 06/09/2018: There is anterior fusion at C4-C5. [...] C7-T1: No significant canal or foraminal stenosis. EMG/NCV by Dr. 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 Chronic left mid-cervical radiculopathy Review of Systems Musculoskeletal: Positive for neck pain. All other systems reviewed and are negative. [...] Date ??? ANTERIOR CERVICAL DISCECTOMY 05/22/2009 C5-6 ([place]) ??? ANTERIOR CERVICAL DISCECTOMY 09/08/2015 C4-5 ([place]) [...] Comment: 1xweek ??? Drug use: No No current outpatient medications on file. No Known Allergies BP 148/88 Pulse 69 Temp 97.8 ??F (36.6 ??C) (Temporal) Resp 18 Ht 172.7 cm (68 ) Wt 78.4 kg (172 lb 12.8 oz) SpO2 98% BMI 26.27 kg/m?? Physical Exam: Constitutional: Patient is oriented to person, place, and time. Patient appears well-developed and well-nourished. HEENT: Head: Normocephalic and atraumatic. Eyes: Conjunctivae and lids are normal. Pupils: Equal, round, reactive to light. Neck: Trachea normal. Neck supple. No JVD present. Lymphatic: No cervical adenopathy Pulmonary Respiratory effort: No increased work of breathing or signs of respiratory distress. Auscultation of lungs: Clear to auscultation. Musculoskeletal Gait and station: Gait evaluation demonstrated a normal gait Cervical spine: Passive and active range of [...] nerves: Cranial nerves 2-12 intact. Reflex Scores: Right brachioradialis: 2+ Left brachioradialis: 2+ Right biceps: 2+ Left biceps: 2+ Right triceps: 2+ Left triceps: 2+ Right patellar: 1+ Left patellar: 1+ Right Achilles: 1+ Left Achilles: 1+ Motor strength: 5/5 Motor Tone: normal tone. Involuntary movements: none. Superficial/Primitive Reflexes: primitive reflexes were absent. Right Marrufo: absent Left Marrufo: absent Right ankle clonus: absent Left ankle clonus: absent Spurling sign is negative. Neck tornado test is negative. Lhermitte sign is negative. Negative longtract signs. Sensation: No sensory loss. Sensory exam: [...] 4. History of fusion of cervical spine 5. Insomnia due to medical condition 6. Current every day smoker 7. Tobacco abuse counseling PLAN/MEDICAL DECISION MAKING: I had a lengthy conversation with . Arjun Melton regarding his chronic pain condition and potential therapeutic options including risks, benefits, alternative therapies, to name a few. Patient has a history of ACDF at C5-C6 on 05/22/2009, and ACDF at C4-C5 on 09/08/2015. Patient now describes a 3-month history of unrelenting neck pain that extends into the left shoulder and began after some activity at work on May 25, 2018. X-rays revealed intact hardware at C4-C5. Cervical MRI showed bilateral uncinate overgrowth that narrows the lateral recesses at C3-C4. Previous EMG/NCV from 2016 revealed chronic left mid-cervical radiculopathy. Patient has failed to obtain pain relief with conservative measures, as referenced above. I have reviewed all available patient's medical records as well as previous therapies as referenced above. Therefore, I have proposed the following plan: 1. Pharmacological measures: Reviewed. Discussed. A. Patient takes diclofenac B. Trial with desipramine 10 mg 1-2 tablets at bedtime C. Take Tylenol 500 mg four times a day as needed for mild to moderate breakthrough pain D. Trial with Rheumate one tablet twice daily E. Start pyridoxine 100 mg one tablet by mouth daily F. Trial with Flector patches 2. Interventional pain management measures: Patient will be scheduled for diagnostic and therapeutic left C3-C4 transforaminal epidural steroid injection. We may repeat another epidural depending on patient's outcome. Patient will follow-up with Dr. Perales thereafter. If he continues to struggle with pain, then, Dr. Perales Has discussed the possibility of ACDF at C3-C4. 3. Long-term rehabilitation efforts: A. The patient does not have a history of falls. I did complete a risk assessment for falls. B. Continue a comprehensive physical therapy program for upper body strengthening/posture correction, gait and balance training, neurodynamics, myofascial release, cupping and dry needling C. Contrast therapy: Apply ice-packs for 15-20 minutes, followed by heating pads for 15-20 minutes to affected area D. Patient has been screened for tobacco use: Current tobacco user. Smoking Cessation: I have advised the patient at length regarding the long-term deleterious effects of smoking and have provided the patient lifestyle modification strategies to facilitate smoking cessation. For instance, I have instructed the patient to delay the time that he lights his first cigarette in the morning from 1 hourto 2 hours and to continue pushing back 30-60 minutes, if possible, every day for the rest of the week. We have also discussed pharmacological interventions in addition to participation in support groups, individual counseling, to name a few to facilitate smoking/nicotine cessation. I spent approximately 6 minutes advising the patient. Patient will start nicotine replacement therapy and quit smoking. He will start nicotine patches 21 mg one patch daily for 4 weeks, then Nicotine patches 14 mg one patch daily for 2 weeks, then Nicotine patches 7 mg one patch daily for 2 weeks, then, discontinue . 4. The patient has been instructed to contact my office with any questions or difficulties. The patient understands the plan and agrees to proceed accordingly. Patient Care Team: Noah Wagner MD as PCP - General (Family Medicine) Victoriano Perales MD as Consulting Physician (Neurosurgery) Chelsey Murphy MD as Consulting Physician (Internal Medicine) Renea Nicole PA as Physician Stem Frazer (Physician Stem Frazer) Jarett Gomez MD as Consulting Physician (Pain Medicine) No orders of the defined types were placed in this encounter. No future appointments. Jarett Gomez MD EMR Dragon/Communications Supervisor disclaimer: Much of this encounter note is an electronic manager flight of spoken language to printed text. Electronic manager flight of spoken language may permit erroneous, or at times, nonsensical words or phrases to be inadvertently transcribed. Although I have reviewed the note for such errors, some may still exist. documented in this encounter Plan of Treatment Upcoming Encounters Date Type Department Care Team (Late st Contact Info) Description 04/10/2024 4:00 PM EST Appointment [facility] AT [address] [address] Scheduled Referrals Name Type Priority Associated Diagnoses Orde r Schedule Ambulatory Referral to Pain Management Outpatient Referral Routine Cervical radiculopathy Ordered: 07/14/2018 documented as of this encounter Visit Diagnoses Diagnosis Cervical spondylosis with radiculopathy Cervical spondylosis with myelopathy Lateral recess stenosis of cervical spine Displacement of cervical intervertebral disc without myelopathy History of fusion of cervical spine Arthrodesis status 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
--- OUTSIDE RECORDS SUMMARY | 2024-04-05 11:55 | XMS_ITS | Encounter Summary ---
Author Organization [facility] Address [address] [place] [id number] Care Team Providers Care Air Pollution Control Engineer Name Role Phone Noah Wagner MD Primary Care Provider [phone] Reason for Referral * Surgical (Routine) - Closed Specialty Diagnoses / Procedures Referred By Renee meza Referred To Contact Diagnoses Cervical spondylosis with radiculopathy Procedures Case Request Victoriano Perales MD [address] [place] [address] Phone: tel: fax: Referral ID Status Reason Start Date Expiration Date Visits Re quested Visits Authorized [id number] Closed 12/20/2018 12/20/2019 1 1 Encounter Details Date Type Department Care Team (Late st Contact Info) Description 12/20/2018 Prep for Surgery [facility] ORDERS ONLY [address] [place] [address] Victoriano Perales MD [address] [place] [address] Cervical spondylosis with radiculopathy (Primary Dx) Social [...] H&P Notes * Victoriano Perales MD - 12/20/2018 12:09 PM EDT Patient: Arjun Melton : 1965 ?? Primary Care Provider: Noah Wagner MD ?? Requesting Provider: As above ? History ?? Chief Complaint: Neck and bilateral shoulder pain. ?? History of Present Illness: Mr. Melton is a 53-year-old gentleman who works at [employer] who is well-known to my service. ??On 05/22/2009 he underwent ACDF at C5-6. ??He developed recurrent symptoms andon 09/08/15 he underwent ACDF at C4-5. ??He now describes a 2-3-week history of neck pain that extends in the left trapezius region and less commonly the left shoulder. ??This began after some activity at work on May 25 of this year. ??He has no arm symptoms. ??He is worse with head turning. ??Nothing has really made him feel better except for some steroids that temporarily helped. ??He reports no bowel or bladder dysfunction.?? He has attended more therapy that has included traction and that has not been helpful. Epidural injections also have not been helpful. ?? Review of Systems Constitutional: Negative for activity change, appetite change, chills, diaphoresis, fatigue, fever and unexpected weight change. HENT: Negative for congestion, dental problem, drooling, ear discharge, ear pain, facial swelling, hearing loss, mouth sores, nosebleeds, postnasal drip, rhinorrhea, sinus pressure, sinus pain, sneezing, sore throat, tinnitus, trouble swallowing and [...] Negative for decreased urine volume, difficulty urinating, discharge, dysuria, enuresis, flank pain, frequency, genital sores, hematuria, penile pain, penile swelling, scrotal swelling, testicular pain and urgency. Musculoskeletal: Positive for neck pain and neck stiffness. Negative for arthralgias, back pain, gait problem, joint swelling and myalgias. Skin: Negative for color change, pallor, rash and wound. Allergic/Immunologic: Positive for environmental allergies. Negative for food allergies and immunocompromised state. Neurological: Negative for dizziness, tremors, seizures, syncope, facial asymmetry, speech difficulty, weakness, light-headedness, numbness and headaches. Hematological: Negative for adenopathy. Does not bruise/bleed easily. Psychiatric/Behavioral: Negative for agitation, behavioral problems, confusion, decreased concentration, dysphoric mood, hallucinations, self-injury, sleep disturbance and suicidal ideas. The patientis not nervous/anxious and is not hyperactive. ? The patient's past medical history, past surgical history, family history, and social history have been reviewed at length in the electronic medical record. ?? Past Medical History: Diagnosis Date ??? Hypertension ??? Scarlet fever ??? Seizures ([facility]/HCC) Past Surgical History: Procedure Laterality Date ??? ANTERIOR CERVICAL DISCECTOMY 05/22/2009 C5-6 ([place]) ??? ANTERIOR CERVICAL DISCECTOMY 09/08/2015 C4-5 ([place]) [...] ??? Drug use: No No Known Allergies Physical Exam: Temp 97.6 ??F (36.4 ??C) (Temporal) Ht 172.7 cm (68 ) Wt 75.3 kg (166 lb) BMI 25.24 kg/m?? MUSCULOSKELETAL: Neck tenderness to palpation is not observed. ROM in neck is normal. Well-healed left anterior cervical incisions are noted. NEUROLOGICAL: Strength is intact in the upper and lower extremities to direct testing. Muscle tone is normal throughout. Station and gait are normal. Sensation is intact to light touch testing throughout. ?? Medical Decision Making ?? Data Review: Plain films demonstrate his construct with hardware to be intact at C4-5. ??No hardware is present at C5-6. Cervical MRI demonstrates some bilateral uncinate overgrowth that narrows the recesses at C3-4. ??There is no cord compromise. ?? Diagnosis: Cervical spondylosis with radiculopathy. ?? Treatment Options: Given his ongoing symptoms I recommended ACDF with allografting and plating at C3-4. It may be necessary to remove his old hardware at C4-5. The surgery would be from a left-sided approach. The nature of the procedure as well as the potential risks, complications, limitations, and alternatives to the procedure were discussed at length with the patient and the patient has agreed to proceed with surgery. I have discussed the merits of smoking cessation as it relates to a successful fusion. He is currently smoking about 1/2 pack of tobacco daily. ? Diagnosis Plan 1. Cervical radiculopathy ?? 2. Cervical spondylosis without myelopathy ?? 3. Hx of fusion of cervical spine XR spine cervical 2 or 3 vw ?? documented in this encounter Plan of Treatment Upcoming Encounters Date Type Department Care Team (Late st Contact Info) Description 04/10/2024 4:00 PM EST Appointment [facility] AT [address] [address] documented as of this encounter Visit Diagnoses Diagnosis Cervical spondylosis with radiculopathy- Primary Cervical spondylosis with myelopathy documented in this encounter Care Teams Air Pollution Control Engineer Relationship Specialty Start Date End Date Noah Wagner MD [address] [place] [address] PCP - General Family Medicine 11/05/15 documented as of this encounter
--- OUTSIDE RECORDS SUMMARY | 2024-04-05 11:55 | XMS_ITS | Encounter Summary ---
[facility] Address [address] [place] [id number] Care Team Providers Care Mast Maker Name Role Phone Noah Wagner MD Primary Care Provider [phone] Reason for Visit * Reason Comments Post-op Encounter Details Date Type Department Care Team (Latest Contact Info) Description 01/22/2020 1:00 PM EDT Office Visit [facility] NE[facility] [address] [place] [id number] Ania Bliss, [address] [place] [address] S/P cervical spinal fusion (Primary Dx); Hx of fusion of cervical spine; Cervical spondylosis with radiculopathy; Tobacco abuse Social History Tobacco Use Types [...] Sign Reading Time Taken Comments Blood Pressure 130/78 01/22/2020 12:53 PM EDT Pulse - - Temperature 36.5 ??C (97.7 ??F) 01/22/2020 12:53 PM E DT Respiratory Rate - - Oxygen Saturation - - Inhaled Oxygen Concentration - - Weight 71.8 kg (158 lb 6.4 oz) 01/22/2020 12:53 PM EDT Height 172.7 cm (5' 8 ) 01/22/2020 12:53 PM EDT Body Mass Index 24.08 01/22/2020 12:53 PM EDT documented in this encounter Progress Notes * Ania Bliss PA-C - 01/22/2020 1:00 PM EDT Patient: Arjun Melton : 1965 GENDER: male Primary Care Provider: Noah Wagner MD Requesting Provider: As above History Chief Complaint: neck and right shoulder pain History of Present Illness: Mr. Melton is a 54-year-old gentleman who works at [employer]. He is known to Dr. Perales's service [...] removal of his old hardware on 12/31/2019. Presently, Mr. Melton is 3 weeks postop. He is overall pleased with his current postoperative progress. He notes a 70% improvement in his preoperative complaints. His severe right shoulder pain hasimproved, however he continues to note posterior neck pain that on occasion extends into his left shoulder. In the first 2 weeks after surgery, he suffered from substantial dysphasia - resulting in aunintentional 4-5 pound weight loss. His swallowing is now better. He additionally reports associated hoarseness, however his voice alteration has resolved. He denies anterior neck swelling. He continues his Springer 10 mg 3 times daily with improvement in his discomfort. He has no other complaints atthis time. Review of Systems Constitutional: Negative for activity [...] systems reviewed and are negative. The patient's review of systems, past medical history, past surgical history, family history, and social history have been reviewed at length in the electronic medical record. Physical Exam: BP 130/78 (BP Location: Right arm, Patient Position: Sitting, Cuff Size: Adult) Temp 97.7 ??F (36.5 ??C) Ht 172.7 cm (68 ) Wt 71.8 kg (158 lb 6.4 oz) BMI 24.08 kg/m?? Consitutional: A&Ox3, pleasant, no acute distress Skin: - Well healed surgical incision - No evidence of wound dehiscence - NSOI - Non-TTP Body mass index is 24.08 kg/m??. Patient's Body mass index is 24.08 kg/m??. BMI is within normal parameters. No follow-up required.. Medical Decision Making Data Review: 1. XRAY Cervical Spine (01/22/2020): Demonstrates postsurgical changes consistent with ACDF at C3-4.Construct is maintained in excellent alignment. There is no evidence of hardware failure or compromise. Solid fusion from C4-6 without instrumentation. Diagnosis/Treatment Options: 1. S/P cervical spinal fusion 2. Hx of fusion of cervical spine 3. Cervical spondylosis with radiculopathy 4. Tobacco abuse Follow up: Mr. Melton is seen today in follow-up 3 weeks after undergoing an uncomplicated ACDF with allografting and plating at C3-4 with removal of old hardware on 12/31/2019. Patient is doing very well. Hissevere right shoulder pain has improved. We went over some general do's/don'ts for next several weeks. Patient verbalized understanding. He will continue to observe and will be seen back in the office with Dr. Perales in 5-6 weeks for reassessment. He will remain off work until his follow-up in the office. Ania Bliss PA-C 01/22/2020 13:55 documented in this encounter Plan of Treatment Upcoming Encounters Date Type Department Care Team (Late st Contact Info) Description 04/10/2024 4:00 PM EST Appointment [facility] AT [address] [address] documented as of this encounter Visit Diagnoses Diagnosis S/P cervical spinal fusion- Primary Arthrodesis status Hx of fusion of cervical spine Cervical spondylosis with radiculopathy Cervical spondylosis with myelopathy Tobacco abuse Tobacco use disorder documented in this encounter Care Teams Mast Maker Relationship Specialty Start Date End Date Noah Wagner MD [address] [place] [address] PCP - General Family Medicine 11/05/15 documented as of this encounter
--- OUTSIDE RECORDS SUMMARY | 2024-04-05 11:55 | XMS_ITS | Encounter Summary ---
[facility] Organization [facility] Address [address] [place] [address] Care Team Providers Care Space Physicist Name Role Phone Noah Wagner MD Primary Care Provider [phone] Reason for Visit * Reason Onset Date Comments post procedure f/u call 11/28/2018 Encounter Details Date Type Department Care Team (Late st Contact Info) Description 11/28/2018 Telephone [facility] PAIN MANAGEMENT [address] [address] Paz Roberts CMA post procedure f/u call Social History Tobacco Use Types Packs/Day Years [...] encounter Miscellaneous Notes * Telephone Encounter - Paz Roberts MA - 11/28/2018 12:39 PM EDT W/C-DX/THERA LEFT C3-C4 TRANS TAMARA on 11/27/18. No answer. No option to leave VM. documented in this encounter Plan of Treatment Upcoming Encounters Date Type Department Care Team (Late Contact Info) Description 04/10/2024 4:00 PM EST Appointment [facility] [address] [address] documented as of this encounter Visit Diagnoses Not on filedocumented in this encounter Care Teams Space Physicist Relationship Specialty Start Date End Date Noah Wagner MD [address] [place] [address] PCP - General Family Medicine 11/05/15 documented as of this encounter
--- OUTSIDE RECORDS SUMMARY | 2024-04-05 11:55 | XMS_ITS | Encounter Summary ---
Author Organization [facility] Address [address] [place] [id number] Care Team Providers Care Gas Producer Name Role Phone Noah Wagner MD Primary Care Provider [phone] Reason for Referral * Diagnostic Imaging (Routine) - Closed Specialty Diagnoses / Procedures Referred By Contac t Referred To Contact Radiology Diagnoses Hx of fusion of cervical spine Procedures XR spine cervical 2 or 3 vw Victoriano Perales MD [address] [place] [address] Phone: tel: fax: [facility] XRAY [address] [place] [address] Phone: tel: Referral ID Status Reason Start Date Expiration Date Visits Re quested Visits Authorized [id number] Closed 12/20/2018 12/20/2019 1 1 Reason for Visit * Reason Comments Neck Pain * Consultation (Routine) - Closed Specialty Diagnoses / Procedures Referred By Contac t Referred To Contact Neurosurgery Diagnoses Lateral recess stenosis of cervical spine Displacement of cervical intervertebral disc without myelopathy Shakeel Diego, Victoriano Farias MD [address] [place] [address] Phone: tel: fax: Referral ID Status Reason Start Date Expiration Date V isits Requested Visits Authorized [id number] Closed Specialty Services Required 12/15/2018 12/15/2019 1 1 Encounter Details Date Type Department Care Team (Late st Contact Info) Description 12/20/2018 11:40 AM EDT Office Visit [facility] NEUROS[facility]GERY [address] [facility] [address] [place] [address] Victoriano Perales MD [address] [facility] [address] [place] [address] Cervical radiculopathy (Primary Dx); Cervical spondylosis without myelopathy; Hx of fusion of cervical spine Social History [...] Pressure - - Pulse - - Temperature 36.4 ??C (97.6 ??F) 12/20/2018 11:37 AM E DT Respiratory Rate - - Oxygen Saturation - - Inhaled Oxygen Concentration - - Weight 75.3 kg (166 lb) 12/20/2018 11:37 AM EDT Height 172.7 cm (5' 8 ) 12/20/2018 11:37 AM EDT Body Mass Index 25.24 12/20/2018 11:37 AM EDT documented in this encounter Progress Notes * Victoriano Perales MD - 12/20/2018 11:40 AM EDT Patient: Arjun Melton : 1965 Primary Care Provider: Noah Wagner MD Requesting Provider: As above History Chief Complaint: Neck and bilateral shoulder pain. History of Present Illness: Mr. Melton is a 53-year-old gentleman who works at [employer] who is well-known to my service. ??On [...] helped. ??He reports no bowel or bladder dysfunction. He has attended more therapy that has included traction and that has not been helpful. Epidural injections also have not been helpful. Review of Systems Constitutional: Negative for activity [...] patientis not nervous/anxious and is not hyperactive. The patient's past medical history, past surgical history, family history, and social history have been reviewed at length in the electronic medical record. Physical Exam: Temp 97.6 ??F (36.4 ??C) [...] is intact to light touch testing throughout. Medical Decision Making Data Review: Plain films demonstrate his construct with hardware to be intact at C4-5. ??No hardware is present at C5-6. Cervical MRI demonstrates some bilateral uncinate overgrowth that narrows the recesses at C3-4. ??There is no cord compromise. Diagnosis: Cervical spondylosis with radiculopathy. Treatment Options: Given his ongoing symptoms I [...] smoking about 1/2 pack of tobacco daily. Diagnosis Plan 1. Cervical radiculopathy 2. Cervical spondylosis without myelopathy 3. Hx of fusion of cervical spine XR spine cervical 2 or 3 vw Scribed for Victoriano Perales MD by Airam Curtis CMA on 12/20/2018 at 12:02 PM I, Dr. Perales, personally performed the services described in the documentation, as scribed in my presence, and it is both accurate and complete. documented in this encounter Plan of Treatment Upcoming Encounters Date Type Department Care Team (Late st Contact Info) Description 04/10/2024 4:00 PM EST Appointment [facility] AT [address] [place] [id number] documented as of this encounter Results * [...] in this encounter Visit Diagnoses Diagnosis Cervical radiculopathy- Primary Brachial neuritis or radiculitis nos Cervical spondylosis without myelopathy Hx of fusion of cervical spine Hx of fusion of cervical spine documented in this encounter Care Teams Gas Producer Relationship Specialty Start Date End Date Noah Wagner MD [address] [place] [address] PCP - General Family Medicine 11/05/15 documented as of this encounter
--- OUTSIDE RECORDS SUMMARY | 2024-04-05 11:55 | XMS_ITS | Encounter Summary ---
Author Organization [facility] Address [address] [place] [id number] Care Team Providers Care School Traffic Guard Name Role Phone Noah Wagner MD Primary Care Provider [phone] Reason for Visit * Surgical (Routine) - Canceled Specialty Diagnoses / Procedures Referred By Renee t Referred To Contact Diagnoses Cervical spondylosis with radiculopathy Procedures External Facility Surgical/Procedural Request Jarett Gomez MD [address] [address] Phone: tel: fax: [facility] [address] [place] [address] Phone: tel: fax: Referral ID Status Reason Start Date Expiration Date V isits Requested Visits Authorized [id number] Canceled Other 11/02/2018 11/02/2019 1 1 Encounter Details Date Type Department Care Team (Late st Contact Info) Description 11/27/2018 7:15 AM EDT Outside Facility Service [facility] PAIN MANAGEMENT [address] [address] Jarett Goemz MD [address] [place] [address] Social History Tobacco Use Types Packs/Day Years [...] on file documented as of this encounter Plan of Treatment Upcoming Encounters Date Type Department Care Team (Late st Contact Info) Description 04/10/2024 4:00 PM EST Appointment [facility] [address] [place] [address] documented as of this encounter Visit Diagnoses Not on filedocumented in this encounter Care Teams School Traffic Guard Relationship Specialty Start Date End Date Noah Wagner MD [address] [place] [address] PCP - General Family Medicine 11/05/15 documented as of this encounter
--- OUTSIDE RECORDS SUMMARY | 2024-04-05 11:55 | XMS_ITS | Encounter Summary ---
[facility] Address [address] [place] [address] Care Team Providers Care Insurance Sales Associate Name Role Phone Noah Wagner MD Primary Care Provider [phone] Encounter Details Date Type Department Care Team (Late st Contact Info) Description 08/24/2018 Telephone [facility] PAIN [facility]EMENT [address] [address] Renea Page MA Social History Tobacco Use Types Packs/Day [...] Miscellaneous Notes * Telephone Encounter - Renea Page MA - 08/24/2018 1:33 PM EDT PRIOR AUTHORIZATION REQUEST SUBMITTED FOR FLECTOR PATCHES TO COVER MY MEDS. AUTHORIZATION APPROVED.CASE # [id number] documented in this encounter Plan of Treatment Upcoming Encounters Date Type Department Care Team (Late st Contact Info) Description 04/10/2024 4:00 PM EST Appointment [facility] AT [address] [address] documented as of this encounter Visit Diagnoses Not on filedocumented in this encounter Care Teams Insurance Sales Associate Relationship Specialty Start Date End Date Noah Wagner MD [address] [place] [address] PCP - General Family Medicine 11/05/15 documented as of this encounter
--- OUTSIDE RECORDS SUMMARY | 2024-04-05 11:55 | XMS_ITS | Encounter Summary ---
[facility] Address [address] [place] [address] Care Team Providers Care Engraver Wood Name Role Phone Noah Wagner MD Primary Care Provider [phone] Encounter Details Date Type Department Care Team (Late st Contact Info) Description 12/03/2019 Telephone [facility] NE[facility] [address] [address] Victoriano Perales MD [address] [place] [address] Social History Tobacco Use Types Packs/Day Years [...] Encounter - Ana Maria Edwards MA - 12/04/2019 9:42 AM EDT Spoke with SPK- he will see pt today and order appropriate studies if need be. * Telephone Encounter - Ana Maria Edwards MA - 12/03/2019 3:07 PM EDT Pt has appt with Dr. Perales tomorrow. Work comp finally approved his surgery. He will need a f/u prior. Does pt need any new imaging? MRI of the C spine is 18 months old. * Telephone Encounter - Sarah Ramirez - 12/03/2019 11:00 AM EDT I told the patient the surgery is still pending approval from worker's comp. As soon as we get the auth ltr, we'll call him back to schedule a follow up appt (since he last saw us almost 1yr ago) first and the surgery if it's still ordered at that time. * Telephone Encounter - Azul Oh MA - 12/03/2019 9:26 AM EDT Patient called to say he wants to schedule surgery. documented in this encounter Plan of Treatment Upcoming Encounters Date Type Department Care Team (Late st Contact Info) Description 04/10/2024 4:00 PM EST Appointment [facility] AT [address] [address] documented as of this encounter Visit Diagnoses Not on filedocumented in this encounter Care Teams Engraver Wood Relationship Specialty Start Date End Date Noah Wagner MD [address] [place] [address] PCP - General Family Medicine 11/05/15 documented as of this encounter
--- OUTSIDE RECORDS SUMMARY | 2024-04-05 11:55 | XMS_ITS | Encounter Summary ---
Author Organization [facility] Address [address] [place] [address] Care Team Providers Care Swimming Pool Maintenance Supervisor Name Role Phone Noah Wagner MD Primary Care Provider [phone] Reason for Visit * Auth/Cert Specialty Diagnoses / Procedures Referred By Renee meza Referred To Contact Diagnoses Cervical spondylosis with radiculopathy Cervical spondylosis with radiculopathy [M47.22] Procedures KS ARTHRODESIS ANT INTERBODY INC DISCECTOMY, CERVICAL BELOW C2 KS ALLOGRAFT FOR SPINE SURGERY ONLY STRUCTURAL KS ANTERIOR INSTRUMENTATION 2-3 VERTEBRAL SEGMENTS CERVICAL DISCECTOMY ANTERIOR WITH FUSION C3-4 POSSBLE REMOVE OLD HARDWARE C4-5 Referral ID Status Reason Start Date Expiration Date Visits Re quested Visits Authorized [id number] 1 1 Encounter Details Date Type Department Care Team (Late st Contact Info) Description 12/31/2019 7:46 AM EDT Anesthesia Event [facility] OR [address] [place] [address] Lilo Spain DO [address] [place] [address] Anesthesia Record Procedure Summary Procedure Name Responsible Anesthesiologist Anesthesia Start Time Anesthesia Stop Time HARDWARE REMOVAL C4-5 , CERVICAL DISCECTOMY ANTERIOR WITH FUSION C3-4 (Spine Cervical) Lilo Spain DO 12/31/19 0746 12/31/19 0942 Events Date Time Event Comment 12/31/2019 0734 AN Equip Check 0739 0742 An Start Data 0746 An Start The patient was reevaluated immediately before moderate or deep sedation use and before anesthesia induction. 0751 An Induction 0753 An Intubation 0936 An Extubation 0936 an stop data 0942 Handoff to RN The following has been completed: 1. Identification of Patient, sawyer family member(s) or patient surrogate 2. Identification of the responsible Practitioner (primary service) 3. Discussion of the pertinent/attainable medical history 4. Discussion of the surgical/procedure course (procedure, reason for surgery, procedure performed) 5. Intraoperative anesthetic management and issue/concerns to include things such as airway, hemodynamics, narcotic, sedation level and paralytic management and intravenous fluids/blood products and urine output during the procedure 6. Expectations/Plans for the early post-procedure period to include things such as anticipated course (anticipatory guidance), complications, need for laboratory or ECG and medication administration 7. Opportunity for questions and acknowledgment of understanding of report from the receiving PACU/ICU team 0942 An Stop Meds Name Total lidocaine PF (XYLOCAINE) local injection 1% 50 mg propofol (DIPRIVAN) injection 200 mg Rocuronium 50 mg/5mL 80 mg neostigmine injection 10 mg/10 mL 4 mg glycopyrrolate (ROBINUL) injection 0.4 m g/2 mL 0.4 mg ondansetron 2 mg/mL 4 mg phenylephrine 10 mg/mL 100 mcg fentaNYL citrate (PF) 100 MCG/2ML 50 mcg midazolam 2 MG/2ML 2 mg ceFAZolin in dextrose (ANCEF) IVPB solut ion 2 g 2 g Dexamethasone Sod Phos-NaCl 10-0.9 MG/50 ML-% IVPB solution 10 mg 10 mg phenylephrine (STEPHANIE-SYNEPHRINE) 50 mg in sodium chloride 0.9 % 250 mL infusion 1.31 mg lactated ringers infusion 750 mL * Agents Name O2 Sevoflurane * Blood No blood administrations on file. Lines, Drains, and Airways Type Details Placement Removal Wound Left; neck; Incision 12/31/19 0929 by Peripheral IV Placement Date: 12/14 12/02; Placement Time: 0645; Catheter Size: 18 G; Orientation: Anterior, Left, Proximal; Location: Forearm; Site Prep: Chlorhexidine; Local Anes: Injectable; Inserted by: STEVEN LEWIS RN; Insertion Attempts: 1; Patient Tolerance: Tolerated well; Removal Date: 12/31/19; Removal Time: 1319 12/31/19 0645 by Emerald Horn RN 12/31/19 1319 by Roger, Yara L, RN ETT Placement Date: 12/14 12/02; Placement Time: 752 (created via procedure documentation); Tube Size: 8 mm; Blade Size: 3; Location: Oral; Removal Date: 12/31/19; Removal Time: 93512/31/19 075 by Afshin Haile CRNA 12/31/19 09 by Afshin Haile CRNA documented in this encounter Social History Tobacco Use Types Packs/Day Years [...] on file documented as of this encounter OR Notes * Anesthesia Postprocedure Evaluation - Afsihn Haile CRNA - 12/31/2019 9:42 AM EDT Patient: Arjun Melton Procedure Summary Date: 12/31/19 Room / Location: [facility] OR [address] [place] [address] [facility] Anesthesia Start: 745 Anesthesia Stop: Procedure: C4-5 HARDWARE REMOVAL, CERVICAL DISCECTOMY ANTERIOR WITH FUSION C3-4 (N/A Spine Cervical) Diagnosis: Cervical spondylosis with radiculopathy (Cervical spondylosis with radiculopathy [M47.22]) Surgeon: Victoriano Perales MD Provider: Lilo Spain DO Anesthesia Type: general ASA Status: 2 Anesthesia Type: general Vitals Vitals Value Taken Time BP 149/106 12/31/2019 9:39 AM Temp Pulse 88 12/31/2019 9:41 AM Resp SpO2 99 % 12/31/2019 9:41 AM Vitals shown include unvalidated device data. T 97F RR 14 Post Anesthesia Care and Evaluation Patient location during evaluation: PACU Patient participation: complete - patient participated Level of consciousness: awake and alert Pain score: 0 Pain management: adequate Airway patency: patent Anesthetic complications: No anesthetic complications PONV Status: none Cardiovascular status: hemodynamically stable and acceptable Respiratory status: nonlabored ventilation, acceptable and nasal cannula Hydration status: acceptable * Anesthesia Procedure Notes - Afshin Haile CRNA - 12/31/2019 8:00 AM EDTAssociated Order(s): Airway Airway Urgency: elective Date/Time: 12/31/2019 7:53 AM Airway not difficult General Information and Staff Patient location during procedure: OR MACHINE SHORTHAND TEACHER: Afshin Haile CRNA Indications and Patient Condition Indications for airway management: airway protection Preoxygenated: yes MILS maintained throughout Mask difficulty assessment: 1 - vent by mask Final Airway Details Final airway type: endotracheal airway Successful airway: ETT Cuffed: yes Successful intubation technique: video laryngoscopy Facilitating devices/methods: intubating stylet Endotracheal tube insertion site: oral Blade: Jacqueline Blade size: 3 ETT size (mm): 8.0 Cormack-Lehane Classification: grade I - full view of glottis Placement verified by: chest auscultation and capnometry Measured from: gums ETT/EBT to gums (cm): 22 Number of attempts at approach: 1 Assessment: lips, teeth, and gum same as pre-op and atraumatic intubation Additional Comments Pt intubated in head neutral position * Anesthesia Preprocedure Evaluation - Lilo Spain DO - 12/31/2019 7:19 AM EDT Anesthesia Evaluation Patient summary reviewed and Nursing notes reviewed history of anesthetic complications: PONV NPO Solid Status: > 8 hours NPO Liquid Status: > 2 hours Airway Mallampati: II TM distance: >3 FB Neck ROM: limited Possible difficult intubation Comment: Hx c spine fusions; Extension slightly limited, flexes well; rotates left, but limited right cervical rotation. Dental - normal exam Pulmonary breath sounds clear to auscultation (+) a smoker, COPD, (-) shortness of breath, recent URI, sleep apnea, no home oxygen Cardiovascular Exercise tolerance: good (4-7 METS) ECG reviewed Patient on routine beta josé luis Rhythm: regular Rate: normal (+) hypertension 2 medications or greater, (-) past LA, dysrhythmias, angina, CHF, cardiac stents, DVT ROS comment: 12/28/19-Normal sinus rhythm Normal ECG; ~2018 HTN w/up by cardiology - negative cath and nl echo per pt report. Neuro/Psych (-) seizures, TIA, CVA GI/Hepatic/Renal/Endo (+) GERD (on ppi ) well controlled, (-) hepatitis, liver disease, no renal disease, diabetes, no thyroid disorder Musculoskeletal Abdominal Substance History (+) alcohol use, (-) drug use SLIMER Other arthritis, (-) history of cancer ROS/Med Hx Other: Fusion of C4-C6. Displacement of cervical intervertebral disc without myelopathy,+radiculopathy. Phys Exam Other: Alert & oriented x3. Anesthesia Plan ASA 2 general (Risks and benefits of general anesthesia discussed with patient, questions answered, agreeable to proceed. Video laryngoscopy given hx of C spine fusion. Will provide scop patch given hx of motion sickness/ponv. 2h NPO from gatorade at 0800. ) intravenous induction Anesthetic plan, all risks, benefits, and alternatives have been provided, discussed and informed consent has been obtained with: patient. Use of blood products discussed with patient Consented to blood products. Plan discussed with MACHINE SHORTHAND TEACHER. documented in this encounter Plan of Treatment Upcoming Encounters Date Type Department Care Team (Late st Contact Info) Description 04/10/2024 4:00 PM EST Appointment [facility] [address] [place] [address] documented as of this encounter Procedures Procedure Name Priority Date/Time Associated Diagnosis Comments ANESTHESIA INTUBATION Routine 12/31/2019 8:00 AM EDT documented in this encounter Results * BH AN ETT AIRWAY (12/31/2019 8:00 AM EDT) Narrative Afshin Haile CRNA - 12/31/2019 8:00 AM EDT Afshin Haile CRNA ? 12/31/2019 ??8:02 AM Airway Urgency: elective Date/Time: 12/31/2019 7:53 AM Airway not difficult General Information and Staff Patient location during procedure: OR MACHINE SHORTHAND TEACHER: Afshin Haile CRNA Indications and Patient Condition Indications for airway management: airway protection Preoxygenated: yes MILS maintained throughout Mask difficulty assessment: 1 - vent by mask Final Airway Details Final airway type: endotracheal airway Successful airway: ETT Cuffed: yes Successful intubation technique: video laryngoscopy Facilitating devices/methods: intubating stylet Endotracheal tube insertion site: oral Blade: Jacqueline Blade size: 3 ETT size (mm): 8.0 Cormack-Lehane Classification: grade I - full view of glottis Placement verified by: chest auscultation and capnometry Measured from: gums ETT/EBT to gums (cm): 22 Number of attempts at approach: 1 Assessment: lips, teeth, and gum same as pre-op and atraumatic intubation Additional Comments Pt intubated in head neutral position us Lilo Spain DO ANESTHESIA ORDERABLES Final Re sult documented in this encounter Visit Diagnoses Not on filedocumented in this encounter Administered Medications Inactive Administered Medications - up to 3 most recent administrations Medication Order MAR Action Action Date Dose Rate Site ceFAZolin in dextrose (ANCEF) IVPB solution 2 g 2 g, Intravenous, Administer over 30 Minutes, Once, On Tue12/31/19 at 0624, For 1 dose, Administer within 1 hour of surgical incision. Redose 4 hours from pre-op dose if procedure ongoing or >1.5 L blood loss. Caution: Look alike/sound alike drug alert, Indications: Surgical ProphylaxisIndications:Surgi kimmy Prophylaxis Given 12/31/2019 7:55 AM EDT 2 g Dexamethasone Sod Phos-NaCl 10-0.9 MG/50ML-% IVPB solution 10 mg 10 mg, Intravenous, 30 min pre-op, Starting on Tue12/31/19 at 0622, For 1 dose, Administer over 5 to 15 minutes.Indications:Cervical spondylosis with radiculopathy Given 12/31/2019 7:55 AM EDT 10 mg fentaNYL citrate (PF) (SUBLIMAZE) injection As Needed, Starting on Tue12/31/19 at 0751 Given 12/31/2019 7:51 AM EDT 50 mcg glycopyrrolate (ROBINUL) injection Intravenous, As Needed, Starting on Tue12/31/19 at 0926 Given 12/31/2019 9:26 AM EDT 0.4 mg lactated ringers infusion 9 mL/hr, Intravenous, Continuous, Starting on Tue12/31/19 at 0624, May switch to NS IV at KVO if renal / if indicated Currently Infusing 12/31/2019 7:43 AM EDT New Bag 12/31/2019 6:45 AM EDT 9 mL/hr 9 mL/hr lidocaine PF 1% (XYLOCAINE) injection As Needed, Starting on Tue12/31/19 at 0751 Given 12/31/2019 7:51 AM EDT 50 mg midazolam (VERSED) injection As Needed, Starting on Tue12/31/19 at 0746 Given 12/31/2019 7:46 AM EDT 2 mg neostigmine injection Intravenous, As Needed, Starting on Tue12/31/19 at 0926 Given 12/31/2019 9:26 AM EDT 4 mg ondansetron (ZOFRAN) injection Intravenous, As Needed, Starting on Tue12/31/19 at 0924 Given 12/31/2019 9:24 AM EDT 4 mg phenylephrine (STEPHANIE-SYNEPHRINE) 50 mg in sodium chloride 0.9 % 250 mL infusion Continuous PRN, Starting on Tue12/31/19 at 0830 New Bag 12/31/2019 8:30 AM EDT 0.3 mcg/kg/min 6.67 mL/h r phenylephrine (STEPHANIE-SYNEPHRINE) injection Intravenous, As Needed, Starting on Tue12/31/19 at 0815 Given 12/31/2019 8:15 AM EDT 100 mcg Propofol (DIPRIVAN) injection Intravenous, As Needed, Starting on Tue12/31/19 at 0751 Given 12/31/2019 7:51 AM EDT 200 mg rocuronium (ZEMURON) injection Intravenous, As Needed, Starting on Tue12/31/19 at 0751 Given 12/31/2019 8:44 AM EDT 10 mg Given 12/31/2019 8:15 AM EDT 20 mg Given 12/31/2019 7:51 AM EDT 50 mg documented in this encounter Care Teams Swimming Pool Maintenance Supervisor Relationship Specialty Start Date End Date Noah Wagner MD [address] [place] [address] PCP - General Family Medicine 11/05/15 documented as of this encounter
--- OUTSIDE RECORDS SUMMARY | 2024-04-05 11:55 | XMS_ITS | Encounter Summary ---
Author Organization [facility] Address [address] [place] [address] Care Team Providers Care Printing Roller Handler Name Role Phone Noah Wagner MD Primary Care Provider [phone] Reason for Visit * Reason Comments Neck Pain Encounter Details Date Type Department Care Team (Late st Contact Info) Description 12/18/2019 11:40 AM EDT Office Visit [facility] [address] [id number] Victoriano Perales MD [address] [phone] Cervical spondylosis with radiculopathy (Primary Dx) Social [...] Pressure - - Pulse - - Temperature 36.3 ??C (97.3 ??F) 12/18/2019 11:44 AM E DT Respiratory Rate 15 12/18/2019 11:44 AM EDT Oxygen Saturation - - Inhaled Oxygen Concentration - - Weight 72.7 kg (160 lb 3.2 oz) 12/18/2019 11:44 AM EDT Height 172.7 cm (5' 8 ) 12/18/2019 11:44 AM EDT Body Mass Index 24.36 12/18/2019 11:44 AM EDT documented in this encounter Progress Notes * Victoriano Perales MD - 12/18/2019 11:40 AM EDT Patient: Arjun Melton : 1965 Primary Care Provider: Noah Wagner MD Requesting Provider: As above History Chief Complaint: Neck and bilateral shoulder pain. History of Present Illness: Mr. Melton is a 54-year-old gentleman who works at [employer] who is well-known to my service. On [...] approved as I understand it. He is now smoking less than 1 pack of tobacco daily. He reports no changein his usual symptoms. Review of Systems Constitutional: Negative for activity [...] the electronic medical record. Physical Exam: Temp 97.3 ??F (36.3 ??C) [...] symmetrical. Juan Alberto's Sign is negative bilaterally. Medical Decision Making Data Review: His follow-up MRI demonstrates broad-based burring with bilateral recess narrowing at C3-4 above his prior construct at C4-5. Plain films from last year demonstrate residual findings related to his prior Mystique plating at C5-6. Plate and screws are present at C4-5. I believe that his fusion is solid at C5-6 and probably so at C4-5. Diagnosis: Cervical spondylosis with radiculopathy. Treatment Options: I have recommended ACDF with [...] continue to work on decreasing his smoking. Diagnosis Plan 1. Cervical spondylosis with radiculopathy Scribed for Victoriano Perales MD by Ana Maria Edwards CMA on 12/18/2019 12:01 I, Dr. Perales, personally performed the services described in the documentation, as scribed in my presence, and it is both accurate and complete. documented in this encounter Plan of Treatment Upcoming Encounters Date Type Department Care Team (Late st Contact Info) Description 04/10/2024 4:00 PM EST Appointment [facility] [address] [address] documented as of this encounter Visit Diagnoses Diagnosis Cervical spondylosis with radiculopathy- Primary Cervical spondylosis with myelopathy documented in this encounter Care Teams Printing Roller Handler Relationship Specialty Start Date End Date Noah Wagner MD [address] [place] [address] PCP - General Family Medicine 11/05/15 documented as of this encounter
--- OUTSIDE RECORDS SUMMARY | 2024-04-05 11:55 | XMS_ITS | Encounter Summary ---
Author Organization [facility] Address [address] [id number] Care Team Providers Care Split Leather Mosser Name Role Phone Noah Wagner MD Primary Care Provider [phone] Reason for Visit * Reason Comments Follow-up 4 month Encounter Details Date Type Department Care Team (Latest Contact Info) Description 09/26/2020 1:30 PM EDT Office Visit [facility] [address] [address] Ania Bliss, [address] [place] [address] S/P cervical spinal fusion (Primary Dx); Cervical [...] Pressure 140/78 09/26/2020 1:28 PM EDT Pulse - - Temperature 36.6 ??C (97.8 ??F) 09/26/2020 1:28 PM ED T Respiratory Rate - - Oxygen Saturation - - Inhaled Oxygen Concentration - - Weight 75 kg (165 lb 6.4 oz) 09/26/2020 1:28 PM EDT Height 172.7 cm (5' 8 ) 09/26/2020 1:28 PM EDT Body Mass Index 25.15 09/26/2020 1:28 PM EDT documented in this encounter Patient Instructions * Patient Instructions* Ania Bliss PA-C - 09/26/2020 1:30 PM EDT Images from the original note were not [...] water. ? Keep raw meats separate from qgecn-tb-yju foods, such as fruits and vegetables. ? in home baby sitter, meat, poultry, and eggs to the recommended [...] include 1 slice of bread, 1 cup zrocj-ba-keq cereal, 3 cups popcorn, or ?? cup [...] U.S. nutrition guidelines. For more information, visit Yappnplate.gov. Exact amounts may vary based on your [...] provider. Document Revised: 08/14/2018 Document Reviewed: 08/14/2018 [employer] Patient Education ?? 2020 [employer]. documented in this encounter Progress Notes * Ania Bliss PA-C - 09/26/2020 1:30 PM EDT Patient: Arjun Melton : 1965 GENDER: male Primary Care Provider: Noah Wagner MD Requesting Provider: As above History Chief Complaint: neck and right shoulder pain History of Present Illness: Mr. Melton is a 54-year-old gentleman who works at [employer]. ??He is known to Dr. Perales's??service for undergoing ACDF at C5-6 on 05/22/2009. ??He did well but developed recurrent symptoms. ??As such,??he underwent ACDF at C4-5 with removal of old hardware on 09/08/2015. ??More recently, he presented with recurrent neck and right shoulder pain. ??Preoperative studies demonstrated significant spondylosis with nerve root compromise at C3-4. ??As such, patient presented for ACDF at C3-4 with removal of his old hardware on 12/31/2019. ?? Presently, Mr. Melton is 9 months postop. ??He continues to note an 85% improvement in his preoperative complaints overall. He remains full-time at work, and admits to occasional right shoulder discomfort-that increases in severity with overuse. He continues to smoke < 1/2 ppd, and is not interested in quitting. ??He has no other complaints at this time. Review of Systems Constitutional: Positive for fatigue. Negative for activity change, appetite change, chills, diaphoresis, fever and unexpected weight change. HENT: Negative. Negative for congestion, dental problem, drooling, ear discharge, ear pain, facial swelling, hearing loss, mouth sores, nosebleeds, postnasal drip, rhinorrhea, sinus pressure, sneezing, sore throat, tinnitus, trouble swallowing and voice change. Eyes: Negative. Negative for photophobia, pain, discharge, redness, itching and visual disturbance. Respiratory: Negative. Negative for apnea, cough, choking, chest tightness, shortness of breath, wheezing and stridor. Cardiovascular: Negative. Negative for chest pain, palpitations and leg swelling. Gastrointestinal: Negative. Negative for abdominal distention, abdominal pain, anal bleeding, bloodin stool, constipation, diarrhea, nausea, rectal pain and vomiting. Endocrine: Negative. Negative for cold intolerance, heat intolerance, polydipsia, polyphagia and polyuria. Genitourinary: Negative. Negative for decreased urine volume, difficulty urinating, dysuria, enuresis, flank pain, frequency, genital sores, hematuria and urgency. Musculoskeletal: Positive for arthralgias, myalgias, neck pain and neck stiffness. Negative for back pain, gait problem and joint swelling. Skin: Negative. Negative for color change, pallor, rash and wound. Allergic/Immunologic: Negative. Negative for environmental allergies, food allergies and immunocompromised state. Neurological: Negative. Negative for dizziness, tremors, seizures, syncope, facial asymmetry, speech difficulty, weakness, light-headedness, numbness and headaches. Hematological: Negative. Negative for adenopathy. Does not bruise/bleed easily. Psychiatric/Behavioral: Positive for sleep disturbance. Negative for agitation, behavioral problems, confusion, decreased concentration, dysphoric mood, hallucinations, self-injury and suicidal ideas. The patient is not nervous/anxious and is not hyperactive. Past Medical History: Diagnosis Date ??? Arthritis [...] C3- 4; Surgeon: Victoriano Perales MD; Location: [facility]; Service: Neurosurgery; Laterality: N/A; ??? COLONOSCOPY apprx 15 years ago ??? NECK SURGERY 05/16/2008 ??? SHOULDER SURGERY 05/16/2008 Right Current Outpatient Medications: ??? albuterol sulfate HFA 108 (90 Base) MCG/ACT inhaler, INHALE 2 PUFFS BY MOUTH EVERY 4 HOURS NEEDED MAY USE 2 PUFFS 20 30 MINUTES BEFORE PHYSICAL EXERTION, Disp: , Rfl: ??? cetirizine (zyrTEC) 10 MG tablet, Take 10 mg by mouth Daily., Disp: , Rfl: ??? famotidine (PEPCID) 20 MG tablet, Take 20 mg by mouth Daily., Disp: , Rfl: ??? lisinopril (PRINIVIL,ZESTRIL) 10 MG tablet, Take 10 mg by mouth Daily., Disp: , Rfl: ??? metoprolol succinate XL (TOPROL-XL) 50 MG 24 hr tablet, Take 50 mg by mouth Daily., Disp: , Rfl: ??? Trelegy Ellipta 100-62.5-25 MCG/INH inhaler, Inhale 1 puff Daily., Disp: , Rfl: ??? triamcinolone (KENALOG) 0.1 % cream, APPLY CREAM EXTERNALLY THREE TIMES DAILY, Disp: , Rfl: No Known Allergies The patient's review of systems, past medical history, past surgical history, family history, and social history have been reviewed at length in the electronic medical record. Physical Exam: BP 140/78 (BP Location: Left arm, Patient Position: Sitting, Cuff Size: Adult) Temp 97.8 ??F (36.6 ??C) (Infrared) Ht 172.7 cm (68 ) Wt 75 kg (165 lb 6.4 oz) BMI 25.15 kg/m?? CONSTITUTIONAL:?? - Patient is well-nourished - Pleasant and appears stated age. PSYCHIATRIC: - Normal mood and affect - Behavior is normal. - Thought content is normal HENT: Head:??Normocephalic and Atraumatic. Eyes:?? - Pupils are equal, round, and reactive to light.?? - EOM??are normal. CV:?? - Regular rate and rhythm on palpable radial pulse - No murmur appreciated PULMONARY:?? - Speaking in full sentences - No [...] Deep tendon reflexes are 1+ and symmetrical. ?? - Marrufo's Sign is negative bilaterally. - Coordination is intact. Patient's Body mass index is 25.15 kg/m??. indicating that he is overweight (BMI 25-29.9). Obesity-related health conditions include the following: hypertension and GERD. Obesity is unchanged. BMI gustavo above average; BMI management plan is completed. We discussed portion control and increasing exercise.. Medical Decision Making Data Review: 1. XRAY Cervical Spine (09/26/2020): Independent review of radiographic imaging??demonstrates postsurgical changes consistent with ACDF at C3-4. ??Construct is maintained in excellent alignment. ??There is no evidence of hardware failure or compromise. ??Solid fusion from C4-6 without instrumentation . At C3-4 there is minimal fusion progression. Diagnosis/Treatment Options: 1. S/P cervical spinal fusion 2. Cervical spondylosis with radiculopathy 3. Hx of fusion of cervical spine 4. Tobacco abuse 5. BMI 25.0-25.9,adult Follow up: Mr. Melton is seen today in follow-up 9 months after undergoing an uncomplicated ACDF with [...] will be seen back in the office on an as-needed basis moving forward. Ania Bliss PA-C 09/26/2020 14:49 EDT documented in this encounter Plan of Treatment Upcoming Encounters Date Type Department Care Team (Late st Contact Info) Description 04/10/2024 4:00 PM EST Appointment [facility] AT [address] [address] documented as of this encounter Visit Diagnoses Diagnosis S/P cervical spinal fusion- Primary Arthrodesis status Cervical spondylosis with radiculopathy Cervical spondylosis with myelopathy Hx of fusion of cervical spine Tobacco abuse Tobacco use disorder BMI 25.0-25.9,adult documented in this encounter Care Teams Split Leather Mosser Relationship Specialty Start Date End Date Noah Wagner MD [address] [place] [address] PCP - General Family Medicine 11/05/15 documented as of this encounter
--- OUTSIDE RECORDS SUMMARY | 2024-04-05 11:55 | XMS_ITS | Encounter Summary ---
Author Organization [facility] Address [address] [place] [address] Care Team Providers Care Control Tower Radio Operator Name Role Phone Noah Wagner MD Primary Care Provider [phone] Reason for Visit * Auth/Cert Specialty Diagnoses / Procedures Referred By Renee meza Referred To Contact Diagnoses Cervical spondylosis with radiculopathy Cervical spondylosis with radiculopathy [M47.22] Procedures TX ARTHRODESIS ANT INTERBODY INC DISCECTOMY, CERVICAL BELOW C2 TX ALLOGRAFT FOR SPINE SURGERY ONLY STRUCTURAL TX ANTERIOR INSTRUMENTATION 2-3 VERTEBRAL SEGMENTS CERVICAL DISCECTOMY ANTERIOR WITH FUSION C3-4 POSSBLE REMOVE OLD HARDWARE C4-5 Referral ID Status Reason Start Date Expiration Date Visits Re quested Visits Authorized [id number] 1 1 Encounter Details Date Type Department Care Team (Late st Contact Info) Description 12/31/2019 7:44 AM EDT - 12/31/2019 10:35 AM EDT Surgery [facility] [address] [phone] Victoriano Peralse MD [address] [address] HARDWARE REMOVAL C4-5 , CERVICAL DISCECTOMY ANTERIOR WITH FUSION C3-4 [565[address] (CPT??)] Social History Tobacco Use Types Packs/Day Years [...] Sign Reading Time Taken Comments Blood Pressure 150/82 12/31/2019 10:31 AM EDT Pulse 74 12/31/2019 10:31 AM EDT Temperature 36.7 ??C (98 ??F) 12/31/2019 10:31 AM EDT Respiratory Rate 16 12/31/2019 10:31 AM EDT Oxygen Saturation 95% 12/31/2019 10:31 AM EDT Inhaled Oxygen Concentration - - Weight - - Height - - Body Mass Index - - documented in this encounter Discharge Instructions * Attachments The following attachments cannot be sent through Care Everywhere. * Radicular Pain (Honduran) documented in this encounter Medications at Time [...] 6:51 AM EDT Pre-Op H&P Arjun Melton [id number] Chief complaint: Right arm numbness to [...] old hardware C4-5 SURGEON: Victoriano Perales M.D. MAIL CARRIER TECHNICIAN: Ania Bliss PA-C PAC assisted with: Suctioning [...] the C3-4 level, self-retaining retractor to provide [id number] exposure. Radiograph confirmed the operative level. The [...] Description 04/10/2024 4:00 PM EST Appointment [facility] AT [address] [address] documented as of this encounter Procedures Procedure Name Priority Date/Time Associated Diagnosis Comments FL C ARM DURING SURGERY Routine 12/31/2019 9:32 AM EDT TX ARTHRD ANT INTERBODY DECOMPRESS CERVICAL BELW C2 12/31/2019 7:26 AM EDT Cervical spondylosis with radiculopathy Special Needs FILMS AT [facility] C-ARM+ documented in this encounter Results * [...] spondylosis with radiculopathy Cervical spondylosis with myelopathy Cervical spondylosis with [...] Given 12/31/2019 7:02 AM EDT 20 mg floseal injection As Needed, Starting on Tue12/31/19 at 0824 Given 12/31/2019 8:24 AM EDT 10 mL Neck gelatin absorbable 1 each, thrombin 5,000 Units mixture As Needed, Starting on Tue12/31/19 at 0816 Given 12/31/2019 8:16 AM EDT Neck hydrALAZINE (APRESOLINE) injection 5 mg 5 mg, [...] 0624, May switch to NS IV at [facility] if renal / if indicated Currently [...] AM EDT 1 patch Behind Left Ear sodium chloride 0.9 % solution As Needed, Starting on Tue12/31/19 at 0816 Given 12/31/2019 8:16 AM EDT 1,000 mL Neck documented in this encounter Active and Recently [...] % solution (CANCELED) As Needed, Starting on Tue12/31/19 at 0816 0816 (Given - Provid er: Victoriano Perales MD) documented in this encounter Care Teams Control Tower Radio Operator Relationship Specialty Start Date End Date Noah Wagner MD [address] [place] [address] PCP - General Family Medicine 11/05/15 documented as of this encounter
--- OUTSIDE RECORDS SUMMARY | 2024-04-05 11:55 | XMS_ITS | Encounter Summary ---
Author Organization [facility] Address [address] [place] [address] Care Team Providers Care K 9 Police Officer Name Role Phone Noah Wagner MD Primary Care Provider [phone] Reason for Referral * Consultation (Routine) - Closed Specialty Diagnoses / Procedures Referred By Contac t Referred To Contact Neurosurgery Diagnoses Lateral recess stenosis of cervical spine Displacement of cervical intervertebral disc without myelopathy Shakeel Diego PA-C Kiefer, Steven P, MD [address] [facility] [address] [id number] Phone: tel: fax: Referral ID Status Reason Start Date Expiration Date V isits Requested Visits Authorized [id number] Closed Specialty Services Required 12/15/2018 12/15/2019 1 1 Encounter Details Date Type Department Care Team (Latest Contact Info) Description 12/15/2018 9:00 AM EDT Office Visit [facility] [address] [facility] [address] [place] [address] Shakeel Diego PA-C Cervical spondylosis without myelopathy (Primary Dx); Lateral recess stenosis of cervical [...] Sign Reading Time Taken Comments Blood Pressure 138/84 12/15/2018 9:07 AM EDT Pulse 68 12/15/2018 9:07 AM EDT Temperature 36.5 ??C (97.7 ??F) 12/15/2018 9:07 AM ED T Respiratory Rate 18 12/15/2018 9:07 AM EDT Oxygen Saturation 98% 12/15/2018 9:07 AM EDT Inhaled Oxygen Concentration - - Weight 75.1 kg (165 lb 9.6 oz) 12/15/2018 9:07 A M EDT Height 172.7 cm (5' 8 ) 12/15/2018 9:07 AM EDT Body Mass Index 25.18 12/15/2018 9:07 AM EDT documented in this encounter Progress Notes * Shakeel Diego PA-C - 12/15/2018 9:00 AM EDT Chief Complaint: Neck and left shoulder pain. History of Present Illness: Patient: Mr. Arjun Melton, 53 y.o. male, with a 5-month history of neck pain, which began after a work related incident. He returns today for post- procedure follow-up. Patient was last seen on 11/27/2018 for left C3-C4 transforaminal epidural steroid injection and experienced no relief. Patient did not participate in Physical Therapy, as medically advised. Pain description: constant pain with intermittent exacerbation, described as dull sensation. Radiation of pain: The neck pain radiates into the posterior aspect of the left shoulder. Pain intensity today: 7-8/10 Average pain intensity last week: 7-8/10 Pain intensity ranges from: 6/10 to 9/10 Aggravating factors: Pain increases with driving at [...] physical therapy, ice and TENs Interventional measures: As referenced above. Surgical measures: ACDF C5-C6 on 05/22/[address] Perales. ACDF C4-C5 on 09/08/[address] Perales. Arjun Melton underwent neurosurgical consultation with Dr. Victoriano Perales on 07/14/2018, and was found to be a potential surgical candidate for ACDF at C3-C4. Arjun Melton presents with significant comorbidities including insomnia and nicotine addiction, hypertension, engaged in treatment. In terms of current analgesics, Arjun Melton takes: Tylenol I have reviewed Wagner Report #[id number], consistent to medication reconciliation. Global Pain Scale 08-24 Pain 17 16 20 Feelings 11 6 7 Clinical outcomes 12 11 14 Activities 7 1 2 GPS Total: 47 34 43 Review of Diagnostic Studies: MRI Cervical Spine- [...] Chronic left mid-cervical radiculopathy Review of Systems Constitutional: Positive for fatigue. Musculoskeletal: Positive for myalgias, neck pain and neck stiffness. Allergic/Immunologic: Positive for environmental allergies. Neurological: Positive for numbness. Psychiatric/Behavioral: Positive for sleep disturbance. All other systems reviewed and are negative. [...] ([place]) ??? ANTERIOR CERVICAL DISCECTOMY 09/08/2015 C4-5 ([place]) ??? NECK SURGERY 05/16/2008 ??? SHOULDER SURGERY [...] pain, Disp: 120 tablet, Rfl: 5 ??? BYSTOLIC 10 MG tablet, Take 10 mg by mouth Daily., Disp: , Rfl: 3 ??? vitamin B-12 (CYANOCOBALAMIN) 1000 MCG tablet, Take 1,000 mcg by mouth Daily., Disp: , Rfl: No Known Allergies BP 138/84 Pulse 68 Temp 97.7 ??F (36.5 ??C) (Temporal) Resp 18 Ht 172.7 cm (68 ) Wt 75.1 kg (165 lb 9.6 oz) SpO2 98% BMI 25.18 kg/m?? Physical Exam: Constitutional: Patient is oriented [...] nerves: Cranial nerves 2-12 intact. Reflex Scores: biceps: 2+ bilaterally triceps: 2+ bilaterally patellar: [...] and affect: Normal. ASSESSMENT: 1. Cervical spondylosis without myelopathy 2. Lateral recess stenosis of cervical spine 3. Displacement of cervical intervertebral disc without myelopathy 4. History of fusion of cervical spine PLAN/MEDICAL DECISION MAKING: I have reviewed all available medical records as well as previous therapies as referenced above, and discussed the patient with Dr. Gomez. 1. Interventional pain management measures: None scheduled. Patient will follow- up with Dr. Perales. 2. Pharmacological measures: Reviewed and discussed. A. [...] (Internal Medicine) Renea Nicole PA as Physician Product Safety Compliance Leader (Physician Product Safety Compliance Leader) Jarett Gomez MD as Consulting Physician (Pain Medicine) No orders of the defined types were placed in this encounter. No future appointments. Shakeel Diego PA-C EMR Dragon/Caponizer disclaimer: Much of this encounter note is an electronic salad maker of spoken language to printed text. Electronic salad maker of spoken language may permit erroneous, or at times, nonsensical words or phrases to be inadvertently transcribed. Although I have reviewed the note for such errors, some may still exist. documented in this encounter Plan of Treatment Upcoming Encounters Date Type Department Care Team (Late st Contact Info) Description 04/10/2024 4:00 PM EST [facility]ointment [facility] AT [address] [phone] Scheduled Referrals Name Type Priority Associated Diagnoses Orde r Schedule Ambulatory Referral to Neurosurgery Outpatient Referral Routine Lateral recess stenosis of cervical spine Displacement of cervical intervertebral disc without myelopathy Ordered: 12/15/2018 documented as of this encounter Visit Diagnoses Diagnosis Cervical spondylosis without myelopathy- Primary Lateral recess stenosis of cervical spine Displacement of cervical intervertebral disc without myelopathy History of fusion of cervical spine Arthrodesis status documented in this encounter Care Teams K 9 Police Officer Relationship Specialty Start Date End Date Noah Wagner MD [address] [place] [address] PCP - General Family Medicine 11/05/15 documented as of this encounter
--- OUTSIDE RECORDS SUMMARY | 2024-04-05 11:56 | XMS_ITS | Encounter Summary ---
Author Organization [facility] Address [address] [place] [phone] Care Team Providers Care Counter Clerk Name Role Phone Alesha Alamo Primary Care Provider [phone] Encounter Details Date Type Department Care Team (Late st Contact Info) Description 07/04/2015 8:39 AM EST - 07/04/2015 11:59 PM EST Hospital Encounter [facility] [address] [place] [phone] Victoriano Perales MD [address] [facility] [address] [phone] Discharge Disposition: Home or Self Care Social History Tobacco Use Types Packs/Day Years Used Date Smoking Tobacco: Never Assessed Sex and Gender Information Value Date Recorded Sex Assigned at Not on file Legal Sex Male 1:03 PM EDT Gender Identity Not on file Sexual Orientation Not on file documented as of this encounter Plan of Treatment Upcoming Encounters Date Type Department Care Team (Late st Contact Info) Description 04/10/2024 4:00 PM EST Appointment [facility] AT [address] [phone] documented as of this encounter Procedures Procedure Name Priority Date/Time Associated Diagnosis Comments SCANNED EMG 07/04/2015 documented in this encounter Results * SCANNED EMG (07/04/2015) [facility] NEUROLOGY ORDERABLES Final Re sult documented in this encounter Visit Diagnoses Not on filedocumented in this encounter Care Teams Counter Clerk Relationship Specialty Start Date End Date Alesha Alamo PA [address] [place] [address] PCP - General 07/04/15 07/04/15 documented as of this encounter
--- OUTSIDE RECORDS SUMMARY | 2024-04-05 11:56 | XMS_ITS | Clinical Summary ---
Author Organization [employer] Address [address] [place] [address] Care Team Providers Care Tour Consultant Name Role Phone Carl Patton MD Primary Care Provider [phone] Allergies No known active allergies Medications lisinopriL (PRINIVIL,ZESTRI L) 10 MG tablet Take 1 tablet (10 mg total) by mouth daily. 4 Active famotidine (PEPCID) 40 MG tablet Take 1 tablet (40 mg total) by mouth daily. 3 Active acetaminophen (TYLENOL) 325 MG tablet Take by mouth every 6 (six) hours if needed. Active aspirin 81 MG EC tablet Take 1 tablet (81 mg total) by mouth daily. 3 Active nitroglycerin (NITROSTAT) 0.4 MG SL tablet Put 1 pill under tongue every 5min as needed for chest pain.No more than 3 doses in 15min.Call 911 if pain unrelieved 5min after 1st dose. 25 tablet 4 06/06/19 25 Active ranolazine (RANEXA) 500 MG 12 hr tablet Take 1 tablet (500 mg total) by mouth 2 (two) times daily. 180 tablet 4 Active atorvastatin (LIPITOR) 80 MG tablet Take 1 tablet (80 mg total) by mouth nightly. 90 tablet 3 4 Active clopidogreL (PLAVIX) 75 mg tablet Take 1 tablet (75 mg total) by mouth daily. 90 tablet 3 4 Active metoprolol succinate (TOPROL-XL) 50 MG 24 hr tablet Take 1 tablet (50 mg total) by mouth daily. 90 tablet 3 4 Active isosorbide mononitrate (IMDUR) 30 MG 24 hr tablet Take 1 tablet (30 mg total) by mouth every morning. 90 tablet 3 4 Active Active Problems Problem Noted Date Diagnosed Date NSTEMI (non-ST elevated myocardial infarction) 0 06/03/2023 Encounters Date Type Department Care Team Description 03/22/2024 Outside Orders [facility] Central Scheduling [address] [place] [address] John Douglas MD Chronic kidney disease, unspecified CKD stage (Primary Dx) from Last 3 Months Social History Tobacco Use Types Packs/Day Years Used Date Smoking Tobacco: Former Cigarettes Smokeless Tobacco: Never Tobacco Cessation:Counseling Given: Not Answered Alcohol Use Standard Drinks/Week Comments Not Currently 1 (1 standard drink = 0.6 oz pur e alcohol) PRAPARE - Transportation Answer Date Re corded In the past 12 months, has l ack of transportation kept you from medical appointments or from getting medications? No 06/04/2023 Lack of Transportation (Non-Medical) Not on file 06/04/2023 Housing Stability Vital Sign Answer Rj e Recorded In the last 12 months, was t here a time when you were not able to pay the mortgage or rent on time? No 06/04/2023 In the last 12 months, how many places have you lived? 1 06/04/2023 In the last 12 months, was t here a time when you did not have a steady place to sleep or slept in a senior care (including now)? No 06/04/2023 Utilities Answer Date Recorded In the past 12 months, has t he Scale[employer], gas, oil, or water [employer] threatened to shut off services in your home? No 06/03/2023 Interpersonal Safety Answer Date Record ed How often does anyone, simran sims family and friends, physically hurt you? Never 06/03/2023 How often does anyone, simran sims family and friends, insult or talk down to you? Never 06/03/2023 How often does anyone, simran sims family and friends, threaten you with harm? Never 06/03/2023 How often does anyone, simran sims family and friends, scream or curse at you? Never 06/03/2023 Housing Stability Answer Date Recorded What is your living situation today? I have a [facility] [place] [address] to live 06/03/[address] you li ve. Do you have problems with any of the following? None of the above 06/03/2023 Food Insecurity Answer Date Recorded Within the past 12 months, y ou worried that your food would run out before you got money to buy more. Never true 06/03/2023 Within the past 12 months, t he food you bought just didn't last and you didn't have money to get more. Never true 06/03/2023 Transportation Needs Answer Date Record ed In the past 12 months, has l ack of reliable transportation kept you from medical appointments, meetings, work or from getting things needed for daily living? No 06/03/2023 Financial Resource Strain Answer Date R ecorded How hard is it for you to pa y for the very basics like food, housing, medical care, and heating? Would you say it is: Not hard at all 06/03/2023 Employment Answer Date Recorded Do you want help finding or keeping work or a job? I do not need or want help 06/03/2023 Family and Community Support Answer Rj e Recorded If for any reason you need h elp with day-to-day activities such as bathing, preparing meals, shopping, managing finances, etc., do you get the help you need? I don't need any help 06/03/2023 Feeling Lonely or Isolated 0 06/03 Educational Attainment Answer Date Bert rded Do you speak a language other than [place] at [facility]? No 06/03/2023 Do you want help with school or training? For example, starting or completing job training or getting a high school diploma, GED or equivalent. No 06/03/2023 Physical Activity Answer Date Recorded Number of minutes of exercise per week 420 06/03/2023 Alcohol Use Answer Date Recorded 5 or More Drinks Per Day Past 12 Months 0 03/31/2024 Depression Answer Date Recorded Calculation of above two rows 0 Stress Answer Date Recorded Stress means a situation in which a person feels tense, restless, nervous, or anxious, or is unable to sleep at night because his or her mind is troubled all the time. Do you feel this kind of stress these days? Somewhat 06/03/2023 Disabilities Answer Date Recorded Because of a physical, menta l, or emotional condition, do you have serious difficulty concentrating, remembering, or making decisions? (5 years or older) No 06/03/2023 Because of a physical, menta l, or emotional condition, do you have difficulty doing errands alone such as visiting a doctor's office or shopping? (15 years or older) No 06/03/2023 Substance Use Answer Date Recorded How many times in the past y ear have you used prescription drugs for non-medical reasons? Never 06/03/2023 How many times in the past year have you used il legal drugs? Never 06/03/2023 Sex and Gender Information Value Date Recorded Sex Assigned at Not on file Legal Sex Male 5:20 PM CDT Gender Identity Not on file Sexual Orientation Not on file Last Filed Vital Signs Vital Sign Reading Time Taken Comments Blood Pressure 100/70 06/24/2023 1:24 PM EST Pulse 73 06/24/2023 1:24 PM EST Temperature 36.7 ??C (98.1 ??F) 06/07/2023 1:50 PM ES T Respiratory Rate 17 06/07/2023 1:50 PM EST Oxygen Saturation 89% 06/07/2023 1:50 PM EST Inhaled Oxygen Concentration - - Weight 74.4 kg (164 lb) 06/24/2023 1:24 PM EST Height 172.7 cm (5' 8 ) 06/03/2023 9:51 AM EST Body Mass Index 24.94 06/03/2023 9:51 AM EST Plan of Treatment Health Maintenance Due Date Last Done Comments CT Colonography 1965 Colonoscopy 1965 Colorectal Cancer Screening 1965 FOBT/FIT 1965 Fit-DNA (Cologuard) 1965 Sigmoidoscopy 1965 Depression Screening (12+) 1975 HIV Screening 09/18/1978 Hepatitis C Screening 09/18/1981 COVID-19 VACCINE (2 - 2023-2 5 season) 2024 08/20/2020 Influenza Vaccine (#1) 2024 03/04/2020 Tobacco Cessation Counseling and Screening (12+) 06/24/2024 06/24/2023 Lipid Panel 06/04/2026 06/04/2023, 06/03/2023 DTAP/TDAP/TD VACCINES (5 - T d or Tdap) 12/12/2031 12/11/2021, 04/13/2021, 07/25/2019, Additional history exists Pneumococcal Vaccine: 0-64 Years Completed 08/13/19 23, 07/30/2016 Shingles Vaccine (Zoster) Completed 11/01/2022, Procedures Procedure Name Priority Date/Time Associated Diagnosis Comments LIPID PANEL STAT 06/04/2023 8:35 AM EST from Last 3 Months or Most Recently Relevant to Health Maintenance Results * (ABNORMAL) Lipid panel (06/04/2023 8:35 AM EST) Triglycerides 117 0 - 249 mg/dL 06/04/2023 9:21 AM [facility] Cholesterol 235(H) 0 - 199 mg/dL 06/04/2023 9:21 AM [facility] Comment: 200 to 239 mg/dL = ??Moderate (borderline) >239 mg/dL ? = ??High HDL 55 >=40 mg/dL 06/04/2023 9:21 AM [facility] Comment: >=60 mg/dL = Desirable <40 mg/dL ??= Increased Risk All other components are listed individually or are calculations VLDL 23.4 5 - 40 mg/dL 06/04/2023 9:21 AM [facility] Cholesterol/HDL ratio 4.3(H) 0.0 - 3.2 06/04/2023 9:21 AM [facility] LDl/HDL Ratio 3 0 - 4 06/04/2023 9:21 AM [facility] RISK COMP 4 06/04/2023 9:21 AM [facility] LDL Cholesterol, Calculated 157(H) 0 - 99 mg/dL 06/04/2023 9:21 AM [facility] Blood Venipuncture / Unknown 06/04/2023 8:35 AM EST 06/04/2023 8:53 AM EST Matilde Welch MD LAB BLOOD ORDERABLES Sharyn bhakta Result [facility] [address] [place] [address], [facility] [phone] from Last 3 Months or Most Recently Relevant to Health Maintenance Insurance [place] [id number] BLUE CROSS/BLUE SHIELD Advance Directives For more information, please contact: [phone] * Full Code (Latest Code Status on File) Date Activated Date Inactivated Comments 06/06/2023 12:34 PM 06/07/2023 4:41 PM * Full Code Date Activated Date Inactivated Comments 06/03/2023 10:28 AM 06/06/2023 12:34 PM Care Teams Tour Consultant Relationship Specialty Start Date End Date Carl Patton MD [address] [place] [address] PCP - General Family Medicine 06/03/23
--- OUTSIDE RECORDS SUMMARY | 2024-04-05 11:56 | XMS_ITS | Encounter Summary ---
Author Organization [employer] Address [address] [place] [address] Care Team Providers Care Process Control Supervisor Name Role Phone Carl Patton MD Primary Care Provider [phone] Reason for Visit * Reason Onset Date Comments Consult 07/22/2023 Encounter Details Date Type Department Care Team (Late st Contact Info) Description 07/22/2023 Telephone [facility] Cardiology [address] [facility] [facility] [address] [place] [address] Helena Romero MD [address] [place] [id number] Consult Social History Tobacco Use Types Packs/Day Years Used Date Smoking Tobacco: Former Cigarettes Smokeless Tobacco: Never Alcohol Use Standard Drinks/Week Comments Not Currently [...] place to sleep or slept in a usp (including now)? No 06/04/2023 Utilities Answer Date Recorded In the past 12 months, has t he electric, gas, oil, or water company threatened to shut off services in your [...] Do you speak a language other than [place] at [facility]? No 06/03/2023 Do you want help with school or training? For example, starting or completing job training or getting a high school diploma, GED or equivalent. No 06/03/2023 Physical Activity Answer Date Recorded Number of minutes of exercise per week 420 06/03/2023 Alcohol Use Answer Date Recorded 5 or More Drinks Per Day Past 12 Months 0 06/03/2023 Depression Answer Date Recorded Calculation of above [...] encounter Miscellaneous Notes * Telephone Encounter - Namita Chamorro MA - 07/22/2023 10:56 AM EST lvm for patient to return my call to discuss his ranexa and chest pain. 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
--- OUTSIDE RECORDS SUMMARY | 2024-04-05 11:56 | XMS_ITS | Encounter Summary ---
Author Organization [facility] Address [address] [place] [address] Care Team Providers Care Medical Lab Technician Name Role Phone Unavailable Primary Care Provider Unavailabl e Encounter Details Date Type Department Care Team (Late st Contact Info) Description 05/22/2009 Conversion Encounter [facility] [address] [place] [address] Interface, See Report Social History Tobacco Use Types Packs/Day Years [...] PM EST Appointment [facility] AT [address] [address] documented as of this encounter Procedures Procedure Name Priority Date/Time Associated Diagnosis Comments CONVERTED (HISTORICAL) SURGICAL PATHOLOGY Routine 05/22/2009 7:07 AM EST documented in this encounter Results * Converted Surgical Pathology (05/22/2009 7:07 AM EST) 05/22/2009 7:07 AM EST Narrative [facility] - 05/23/2009 2:02 PM EST [facility] SURGICAL PATHOLOGY REPORT Patient Name: МАРИНА HALL. MR#: [id number] : 1965 Gender: M Ordering Physician: TIEN, ADDIE Copy To: ?? Location: 1S 0101-5 Collected: 05/22/2009 Received: 05/22/2009 Reported: 05/23/2009 Clinical Diagnosis and History The working history is HNP C5-6. Final Diagnosis Intervertebral disc C5-6: Fibrocartilage from intervertebral disc. ALYSSA/sk ?? Amendments: Electronically Signed Out By Carl Rios M.D. Specimen(s) Received: Intervertebral disc Gross Description Received in formalin labeled disc is a 3.0 x 2.5 x 0.3 cm aggregate of orozco/pink fibrocartilaginous soft tissue fragments which are submitted in toto in one cassette. ??HBM/sk Microscopic Description Sections of the intervertebral disc material demonstrate fibrocartilage without inflammation or neoplasia. ??JFJ/sk Procedures/Addenda us See Report Interface PATHOLOGY/CYTOLOGY ORDERABL ES Final Result [facility] [address] [place] [address], documented in this encounter Visit Diagnoses Not on filedocumented in this encounter
--- OUTSIDE RECORDS SUMMARY | 2024-04-05 11:56 | XMS_ITS | Encounter Summary ---
Author Organization [facility] Address [address] [place] [address] Care Team Providers Care Hardware Installation Coordinator Name Role Phone Noah Wagner MD Primary Care Provider [phone] Reason for Referral * Physical Therapy (Routine) - Closed Specialty Diagnoses / Procedures Referred By Contac t Referred To Contact Physical Therapy Diagnoses Cervical radiculopathy Victoriano Perales MD [address] [place] [address] Phone: tel: fax: [facility] [address] [place] [address] Phone: tel: fax: Referral ID Status Reason Start Date Expiration Date V isits Requested Visits Authorized [id number] Closed Specialty Services Required 07/14/2018 07/14/2019 1 1 * Pain Management (Routine) - Closed Specialty Diagnoses / Procedures Referred By Contac t Referred To Contact Pain Medicine Diagnoses Cervical radiculopathy Victoriano Perales MD [address] [place] [address] Phone: tel: fax: Jarett Gomez MD [address] [place] [address] [address] [place] [address] Phone: tel: fax: Referral ID Status Reason Start Date Expiration Date V isits Requested Visits Authorized [id number] Closed Specialty Services Required 07/14/2018 07/14/2019 1 1 Encounter Details Date Type Department Care Team (Late st Contact Info) Description 07/14/2018 1:40 PM EST Office Visit [facility] NE[facility]ERY [address] [facility] [address] [place] [id number] Victoriano Perales MD [address] [address] Cervical radiculopathy (Primary Dx); Cervical spondylosis without [...] - Inhaled Oxygen Concentration - - Weight 77.6 kg (171 lb) 07/14/2018 1:40 PM EST Height 172.7 cm (5' 8 ) 07/14/2018 1:40 PM EST Body Mass Index 26 07/14/2018 1:40 PM EST documented in this encounter Progress Notes * Victoriano Perales MD - 07/14/2018 1:40 PM EST Patient: Arjun Melton : 1965 Primary Care Provider: Noah Wagner MD Requesting Provider: As above History Chief Complaint: Neck and left shoulder pain. History of Present Illness: Mr. Melton is a 52-year-old gentleman who works at [employer] who is well-known to my service. On 05/22/2009 he underwent ACDF at C5-6. He developed recurrent symptoms and on 09/08/15 he underwent ACDF at C4-5. He now describes a 2-3-week history of neck pain that extends in the left trapezius region and less commonly the left shoulder. This began after some activity at work on May 25 of this year. He has no arm symptoms. He is worse with head turning. Nothing has really made him feel better except for some steroids that temporarily helped. He reports no bowel or bladder dysfunction. Therapy has not been helpful. Although I ordered traction the therapist did not pursue that and provided the patient with a somewhat vague rationale. Review of Systems Constitutional: Negative for activity [...] pain, gait problem and joint swelling. Skin: Negative for color change, pallor, rash [...] is not nervous/anxious and is not hyperactive. The patient's past medical history, past surgical history, family history, and social history have been reviewed at length in the electronic medical record. Physical Exam: Ht 172.7 cm (68 ) Wt 77.6 kg (171 lb) BMI 26.00 kg/m?? MUSCULOSKELETAL: Neck tenderness to palpation is not observed. ROM in neck is normal. NEUROLOGICAL: Strength is intact in the upper and lower extremities to direct testing. Muscle tone is normal throughout. Station and gait are normal. Sensation is intact to light touch testing throughout. Medical Decision Making Data Review: Plain films demonstrate his construct with hardware to be intact at C4-5. No hardware is present atC5-6. Cervical MRI demonstrates some bilateral uncinate overgrowth that narrows the recesses at C3-4. There is no cord compromise. Diagnosis: 1. Mechanical neck pain. 2. High cervical radiculopathy due to spondylosis. Treatment Options: I have referred the patient to one of my pain colleagues for a selective epidural injection or two on the left at C3-4. I would also like him to attend physical therapy with a different provider and pursue traction. He will follow- up with me after the above. If he continues to struggle then we may need to consider ACDF at C3-4. Diagnosis Plan 1. Cervical radiculopathy Ambulatory Referral to Pain Management Ambulatory Referral to Physical Therapy Evaluate and treat; Stretching, ROM, Strengthening 2. Cervical spondylosis without myelopathy 3. Hx of fusion of cervical spine Scribed for Victoriano Perales MD by Airam Curtis CMA on 07/14/2018 at 1:59 PM I, Dr. Perales, personally performed the services described in the documentation, as scribed in my presence, and it is both accurate and complete. documented in this encounter Plan of Treatment Upcoming Encounters Date Type Department Care Team (Late st Contact Info) Description 04/10/2024 4:00 PM EST Appointment [facility] AT [address] [address] Scheduled Referrals Name Type Priority Associated Diagnoses Orde r Schedule Ambulatory Referral to Pain Management Outpatient Referral Routine Cervical radiculopathy Ordered: 07/14/2018 documented as of this encounter Visit Diagnoses Diagnosis Cervical radiculopathy- Primary Brachial neuritis or radiculitis nos Cervical spondylosis without myelopathy Hx of fusion of cervical spine documented in this encounter Care Teams Hardware Installation Coordinator Relationship Specialty Start Date End Date Noah Wagner MD [address] [place] [address] PCP - General Family Medicine 11/05/15 documented as of this encounter
--- OUTSIDE RECORDS SUMMARY | 2024-04-05 11:56 | XMS_ITS | Encounter Summary ---
Author Organization [facility] Address [address] [place] [address] Care Team Providers Care Claim Professional Name Role Phone Unavailable Primary Care Provider Unavailabl e Encounter Details Date Type Department Care Team (Late st Contact Info) Description 04/12/2011 Conversion Encounter [facility] [address] [place] [address] Interface, See Report Social History [...] Info) Description 04/10/2024 4:00 PM EST Appointment [facility] AT [address] [address] documented as of this encounter Procedures Procedure Name Priority Date/Time Associated Diagnosis Comments CONVERTED (HISTORICAL) SURGICAL PATHOLOGY Routine 04/12/2011 10:37 AM EST documented in this encounter Results * Converted Surgical Pathology (04/12/2011 10:37 AM EST) 04/12/2011 10:3 7 AM EST [facility] - 04/13/2011 11:32 [place] [address] SURGICAL PATHOLOGY REPORT Patient Name: МАРИНА HALL. MR#: [id number] : 1965 Gender: M Ordering Physician: JOSLYN WASHBURN [facility] Location: [facility] Collected: 04/12/2011 Received: 04/12/2011 Reported: 04/13/2011 Clinical Diagnosis and History The working history is peptic ulcer disease; rule out Helicobacter. Final Diagnosis GASTRIC BIOPSIES: ? Changes compatible with reactive gastropathy; special stain negative for Helicobacter. [facility] Amendments: Electronically Signed Out By Carl Rios M.D. Specimen(s) Received: Gastric Biopsy Gross Description Received in formalin labeled gastric biopsy consists of a 0.3x0.3x0.3 cm orozco/pink soft tissue which is submitted in toto in one cassette. /[facility] Microscopic Description Sections show gastric pit hyperplasia with pits which are elongated and somewhat tortuous.There is no significant active inflammation or intestinal metaplasia.The underlying lamina propria shows an increase in chronic inflammatory cells without nodular aggregates as well as increase in connective tissue elements including small slips of smooth muscle which extend to the surface epithelium. With appropriate control, CFV stain is negative for Helicobacter. [facility] Previous Pertinent History [id number], 03/14/1997. GASTRIC BIOPSIES: Chronic reactive gastritis. CFV stain - Negative for Helicobacter. (JLB) ? Procedures/Addenda us See Report Interface PATHOLOGY/CYTOLOGY ORDERAB[place] [address], documented in this encounter Visit Diagnoses Not on filedocumented in this encounter
--- OUTSIDE RECORDS SUMMARY | 2024-04-05 11:56 | XMS_ITS | Encounter Summary ---
Author Organization [facility] Address [address] [place] [id number] Care Team Providers Care Foot Specialist Name Role Phone Provider, No Known Primary Care Provider [phone] Reason for Visit * Reason Onset Date Comments Med Refill 10/01/2015 Encounter Details Date Type Department Care Team (Late st Contact Info) Description 10/01/2015 Refill [facility] NEUR[facility] [address] [place] [id number] Victoriano Perales MD [address] [facility] [address] [place] [id number] Social History Tobacco Use Types Packs/Day Years Used Date Smoking Tobacco: Never Assessed Sex and Gender Information Value Date Recorded Sex Assigned at Not on file Legal Sex Male 1:03 PM EDT Gender Identity Not on file Sexual Orientation Not on file documented as of this encounter Progress Notes * Vasile Bull PA-C - 10/01/2015 2:09 PM EDTAddended by: VASILE BULL on: 10/01/2015 02:09 PM Modules accepted: Orders documented in this encounter Miscellaneous Notes * Telephone Encounter - Catrina Cramer MA - 10/01/2015 2:56 PM EDT Patient aware, rx mailed per patient. * Telephone Encounter - Vasile Bull PA-C - 10/01/2015 2:09 PM EDT Please call pt and let him know RX ready for bead picker or mail. documented in this encounter Plan of Treatment Upcoming Encounters Date Type Department Care Team (Late st Contact Info) Description 04/10/2024 4:00 PM EST Appointment [facility] [address] [place] [address] documented as of this encounter Visit Diagnoses Not on filedocumented in this encounter Care Teams Foot Specialist Relationship Specialty Start Date End Date Provider, [place] [address] PCP - General 09/01/15 11/04/15 documented as of this encounter
--- OUTSIDE RECORDS SUMMARY | 2024-04-05 11:56 | XMS_ITS | Encounter Summary ---
Author Organization [facility] Address [address] [place] [address] Care Team Providers Care Carton Marker Machine Name Role Phone Noah Wagner MD Primary Care Provider [phone] Reason for Referral * Physical Therapy (Routine) - Closed Specialty Diagnoses / Procedures Referred By Contac t Referred To Contact Physical Therapy Diagnoses Cervical radiculopathy Victoriano Perales MD [address] [place] [address] Phone: tel: fax: [facility] [address] [place] [address] Phone: tel: fax: Referral ID Status Reason Start Date Expiration Date V isits Requested Visits Authorized [id number] Closed Specialty Services Required 06/21/2018 06/21/2019 1 1 Reason for Visit * Reason Comments Neck Pain * Consultation (Routine) - Closed Specialty Diagnoses / Procedures Referred By Contac t Referred To Contact Neurosurgery Diagnoses Cervicalgia Cervical radiculopathy [place] [address] [place] [address] Phone: tel: fax: Victoriano Perales MD [address] [place] [address] Phone: tel: fax: Referral ID Status Reason Start Date Expiration Date Visits Re quested Visits Authorized [id number] Closed 06/14/2018 06/14/2019 1 1 Encounter Details Date Type Department Care Team (Late st Contact Info) Description 06/21/2018 4:00 PM EST Office Visit [facility] NEUR[facility]ERY [address] [facility] [address] [place] [id number] Victoriano Perales MD [address] [place] [address] Cervical radiculopathy (Primary Dx); Cervical spondylosis without [...] - Inhaled Oxygen Concentration - - Weight 75.8 kg (167 lb) 06/21/2018 3:26 PM EST Height 172.7 cm (5' 8 ) 06/21/2018 3:26 PM EST Body Mass Index 25.39 06/21/2018 3:26 PM EST documented in this encounter Progress Notes * Victoriano Perales MD - 06/21/2018 4:00 PM EST Patient: Arjun Melton : 1965 Primary Care Provider: Noah Wagner MD Requesting Provider: As above History Chief Complaint: Neck and left shoulder pain. History of Present Illness: Mr. Melton is a 52-year-old gentleman who works at [employer] who is well-known to my service. On [...] He reports no bowel or bladder dysfunction. Review of Systems Constitutional: Negative for activity [...] sores, hematuria and urgency. Musculoskeletal: Positive for neck pain and neck stiffness. Negative for arthralgias, back pain, gait problem, joint swelling and myalgias. Skin: Negative for color change, pallor, rash and wound. Allergic/Immunologic: Negative for environmental allergies, food allergies and immunocompromised state. Neurological: Positive for numbness and headaches. Negative for dizziness, tremors, seizures, syncope, facial asymmetry, speech difficulty, weakness and light-headedness. Hematological: Negative for adenopathy. Does not bruise/bleed [...] Exam: Ht 172.7 cm (68 ) Wt 75.8 kg (167 lb) BMI 25.39 kg/m?? CONSTITUTIONAL: Patient is well-nourished, pleasant and appears stated age. CV: Heart regular rate and rhythm without murmur, rub, or gallop. PULMONARY: Lungs are clear to ascultation. MUSCULOSKELETAL: Neck tenderness to palpation is not observed. ROM in neck is limited in all directions. There are 2 left-sided anterior cervical incisions that are intact. Ranging the left shoulder is well-tolerated without any significant pain or limitation. NEUROLOGICAL: Orientation, memory, attention span, language function, [...] is intact. Medical Decision Making Data Review: Plain films demonstrate his construct with hardware to be intact at C4-5. No hardware is present atC5-6. Cervical MRI demonstrates some bilateral uncinate overgrowth that narrows the recesses at C3-4. There is no cord compromise. Diagnosis: 1. Mechanical neck pain. 2. Possible high cervical radiculopathy. Treatment Options: I have started the patient on diclofenac and referred him to physical therapy that will include traction. He will follow-up in several weeks. Diagnosis Plan 1. Cervical radiculopathy Ambulatory Referral to Physical Therapy Evaluate and treat 2. Cervical spondylosis without myelopathy 3. Hx of fusion of cervical spine Scribed for Victoriano Perales MD by Ana Maria Edwards CMA on 06/21/2018 3:48 PM I, Dr. Perales, personally performed the services described in the documentation, as scribed in my presence, and it is both accurate and complete. documented in this encounter Plan of Treatment Upcoming Encounters Date Type Department Care Team (Late st Contact Info) Description 04/10/2024 4:00 PM EST Appointment [facility] AT [address] [address] documented as of this encounter Visit Diagnoses Diagnosis Cervical radiculopathy- Primary Brachial neuritis or radiculitis nos Cervical spondylosis without myelopathy Hx of fusion of cervical spine documented in this encounter Care Teams Carton Marker Machine Relationship Specialty Start Date End Date Noah Wagner MD [address] [place] [id number] PCP - General Family Medicine 11/05/15 documented as of this encounter
--- OUTSIDE RECORDS SUMMARY | 2024-04-05 11:56 | XMS_ITS | Encounter Summary ---
Author Organization [employer] Address [facility] [place] [address] Care Team Providers Care Pricing Specialist Name Role Phone Carl Patton MD Primary Care Provider [phone] Reason for Referral * CAT Scan (Routine) - Authorized Specialty Diagnoses / Procedures Referred By Contac t Referred To Contact Radiology Diagnoses Chronic kidney disease, unspecified CKD stage Procedures CTA abdomen & pelvis John Douglas MD [address] [place] [address] Phone: tel: Referral ID Status Reason Start Date Expiration Date V isits Requested Visits Authorized [id number] Authorized 03/22/2024 04/20/2024 1 1 Encounter Details Date Type Department Care Team (Late st Contact Info) Description 03/22/2024 Outside Orders [facility] Central Scheduling [address] [place] [address] John Douglas MD [address] [place] [id number] Chronic kidney disease, unspecified CKD stage (Primary Dx) Social History Tobacco Use Types [...] place to sleep or slept in a fci (including now)? No 06/04/2023 Utilities Answer Date [...] your living situation today? I have a [facility] place to live 06/03/2023 Think about the [...] Do you speak a language other than French at ho me? No 06/03/2023 Do you want help with [...] as of this encounter Plan of Treatment Scheduled Orders Name Type Priority Associated Diagnoses Orde r Schedule CTA abdomen & pelvis Imaging Routine Chronic kidney disease, unspecified CKD stage Expected: 03/22/2024, Expires: 04/21/2025 documented as of this encounter Visit Diagnoses Diagnosis Chronic kidney disease, unspecified CKD stage- Primary documented in this encounter Care Teams Pricing Specialist Relationship Specialty Start Date End Date Carl Patton MD [address] [place] [address] PCP - General Family Medicine 06/03/23 documented as of this encounter
--- OUTSIDE RECORDS SUMMARY | 2024-04-05 11:56 | XMS_ITS | Encounter Summary ---
Author Organization [facility] Address [address] [place] [address] Care Team Providers Care Off Track Betting Manager Name Role Phone Provider, No Known Primary Care Provider [phone] Encounter Details Date Type Department Care Team (Late st Contact Info) Description 10/08/2015 Refill [facility] NEUROSURGERY [address] [place] [address] [place] [id number] John Bull, PAYanetC [address] [place] [address] Cervical spondylosis without myelopathy (Primary Dx) Social History Tobacco Use Types Packs/Day Years Used Date Smoking Tobacco: Every Day Cigarettes Alcohol Use Standard Drinks/Week Comments Yes 0 (1 standard drink = 0.6 oz pur e alcohol) Sex and Gender Information Value Date Recorded Sex Assigned at Not on file Legal Sex Male 1:03 PM EDT Gender Identity Not on file Sexual Orientation Not on file documented as of this encounter Plan of Treatment Upcoming Encounters Date Type Department Care Team (Late st Contact Info) Description 04/10/2024 4:00 PM EST Appointment [facility] [place] [address] [place] [address] documented as of this encounter Visit Diagnoses Diagnosis Cervical spondylosis without myelopathy- Primary documented in this encounter Care Teams Off Track Betting Manager Relationship Specialty Start Date End Date Provider, [place] [address] PCP - General 09/01/15 11/04/15 documented as of this encounter
--- OUTSIDE RECORDS SUMMARY | 2024-04-05 11:56 | XMS_ITS | Encounter Summary ---
Author Organization [facility] Address [address] [place] [id number] Care Team Providers Care Shank Threader Name Role Phone Noah Wagner MD Primary Care Provider [phone] Reason for Referral * Diagnostic Imaging (Routine) - Closed Specialty Diagnoses / Procedures Referred By Contac t Referred To Contact Radiology Diagnoses Displacement of cervical intervertebral disc without myelopathy Procedures XR spine cervical 2 vw John Bull PA-C Phone: tel: fax: [facility] [address] [place] [address] Phone: tel: Referral ID Status Reason Start Date Expiration Date Visits Re quested Visits Authorized [id number] Closed 01/02/2016 06/30/2016 1 1 Reason for Visit * Reason Comments Follow-up Encounter Details Date Type Department Care Team (Latest Contact Info) Description 01/02/2016 3:45 PM EDT Office Visit [facility] NEUROSURGERY [address] [facility] [address] [place] [phone] John Bull PA-C [address] [place] [address] Displacement of cervical intervertebral disc without myelopathy (Primary Dx) Social History Tobacco [...] Sign Reading Time Taken Comments Blood Pressure 130/80 01/02/2016 4:18 PM EDT Pulse - - Temperature 36.8 ??C (98.2 ??F) 01/02/2016 4:18 PM ED T Respiratory Rate - - Oxygen Saturation - - Inhaled Oxygen Concentration - - Weight 70.3 kg (155 lb) 01/02/2016 4:18 PM EDT Height 157.5 cm (5' 2 ) 01/02/2016 4:18 PM EDT Body Mass Index 28.35 01/02/2016 4:18 PM EDT documented in this encounter Progress Notes * John Bull PA-C - 01/07/2016 8:02 AM EDT Patient: Arjun Melton : 1965 Primary Care Provider: Noah Wagner MD Requesting Physician: As above History Chief Complaint: 1. C4-5 disc herniation 2. Cervical spondylosis with left upper extremity radiculopathy History of Present Illness: Mr. Melton is seen in follow-up. He previously has undergone ACDF at C5-6. On 09/08/2015 he underwent ACDF at C4-5. A large majority of his left upper extremity symptoms have resolved. He is been attending work conditioning and his neck and bilateral shoulder pain is dissipating. 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 He is due to start work hardening program next week. He was subsequently return to work in approximately 2 weeks. Review of Systems Musculoskeletal: Positive for neck pain and neck stiffness. Allergic/Immunologic: Positive for environmental allergies. Psychiatric/Behavioral: Positive for sleep disturbance. All other systems reviewed and are negative. Physical Exam: Visit Vitals ??? BP 130/80 ??? Temp 98.2 ??F (36.8 ??C) ??? Ht 62 (157.5 cm) ??? Wt 155 lb (70.3 kg) ??? BMI 28.35 kg/m2 He is alert and oriented ??3. He is in no acute distress. He walks with steady gait. Cervical incision is well-healed. Medical Decision Making Treatment Options: Mr. Melton continues to make improvements with physical therapy. He will discuss the role of a home TENS unit with his therapist. We will no longer continue narcotic-based medications. He may continue with [id number] ibuprofen or Tylenol as needed. He will follow-up in 2 months with plain films of his cervical spine. Diagnosis Plan 1. Displacement of cervical intervertebral disc without myelopathy XR spine cervical 2 vw documented in this encounter Plan of Treatment Upcoming Encounters Date Type Department Care Team (Late st Contact Info) Description 04/10/2024 4:00 PM EST Appointment [facility] AT [address] [address] Scheduled Orders Name Type Priority Associated Diagnoses Orde r Schedule XR spine cervical 2 vw Imaging Routine Displacement of cervical intervertebral disc without myelopathy Ordered: 01/02/2016 documented as of this encounter Visit Diagnoses Diagnosis Displacement of cervical intervertebral disc without myelopathy- Primary documented in this encounter Care Teams Shank Threader Relationship Specialty Start Date End Date Noah Wagner MD [address] [place] [address] PCP - General Family Medicine 11/05/15 documented as of this encounter
--- OUTSIDE RECORDS SUMMARY | 2024-04-05 11:56 | XMS_ITS | Encounter Summary ---
Author Organization [facility] Address [address] [place] [id number] Care Team Providers Care Medical Billing Instructor Name Role Phone Provider, No Known Primary Care Provider Encounter Details Date Type Department Care Team (Late st Contact Info) Description 09/08/2015 7:00 AM EDT - 09/08/2015 1:50 PM EDT Hospital Encounter [facility] [address] [place] [id number] Victoriano Perales MD [address] [facility] [address] [place] [address] Discharge Disposition: Home or Self Care Social History Tobacco Use Types Packs/Day Years Used Date Smoking Tobacco: Never Assessed Sex and Gender Information Value Date Recorded Sex Assigned at Not on file Legal Sex Male 1:03 PM EDT Gender Identity Not on file Sexual Orientation Not on file documented as of this encounter Medications at Time of Discharge Medication Sig Dispense Quantity Refills Last Filled Start D ate End Date cefdinir (OMNICEF) 300 MG capsule 08/25/2015 07/14/2018 ibuprofen (ADVIL,MOTRIN) 800 MG tablet 08/09/2015 06/21/2018 mupirocin (BACTROBAN) 2 % ointment 09/02/2015 07/14/2018 omeprazole (PriLOSEC) 20 MG capsule 09/02/2015 07/14/2018 documented as of this encounter OR Notes * Op Note - Provider, No Known - 09/08/2015 12:00 AM EDT [place] [address] OPERATIVE REPORT PATIENT NAME: ARJUN HALL ROOM NUMBER: [id number] VISIT NUMBER: [id number] DATE OF : 1965 DATE OF OPERATION: 09/08/2015 ADMITTING PHYSICIAN: TIEN Kelly PREOPERATIVE DIAGNOSIS: C4-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 POSTOPERATIVE DIAGNOSIS: C4-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 PROCEDURES PERFORMED: 1. Arthrodesis at C4-C5. 2. Anterior cervical diskectomy with microdissection at C4-C5. 3. Zevo anterior plating at C4-C5. 4. Composite allografting at C4-C5. SURGEON: Victoriano Perales MD HABITAT CONSERVATION PLANNER: John Bull PA-C ANESTHESIA: General endotracheal. ESTIMATED BLOOD LOSS: Minimal. SPECIMEN: Disk to pathology. COMPLICATIONS: None. INDICATIONS FOR PROCEDURE: The patient is a 49-year-old gentleman who a number of years ago underwent ACDF with allografting and plating at the C5-C6 level. More recently, he has experienced severe neck and left upper extremity pain. His studies reveal disk osteophyte complex leftward at C4-C5 that is felt to provide clinical correlation. As such, he presents at this time for ACDF with allografting and plating at C4-C5. The nature of the procedure, as well as the potential risks, complications and limitations were well outlined to the patient and he has agreed to proceed with surgery. DESCRIPTION OF PROCEDURE: The patient was brought to the operating room and placed on the operating table in the supine position. General endotracheal anesthesia was achieved. His neck was mildly extended with a roll placed transversely under his shoulders. His anterior neck was prepared and draped in the usual fashion. The previous incision from the midline leftward was reopened at about the level of the cricothyroid membrane. The underlying subcutaneous tissues were undermined. The platysma was divided longitudinally. A plane medial to the belly of the sternocleidomastoid muscle was pursued to provide exposure to the anterior spine. The disk space was marked with a spinal needle, and a localizing radiograph confirmed this to be the C4-C5 level. The longus coli muscle was mobilized from the anterior spine with cautery. Self-retaining retractor provided [id number] exposure. Distraction screws were utilized. The disk at C4-C5 was incised and evacuated piecemeal with an array of pituitary rongeurs, Carmella curettes and Kerrison punches. After subtotal diskectomy, the operating microscope was brought into use. Endplate spurring and disk were removed. The posterior longitudinal ligament was taken down. The neural foramina were widely decompressed with Kerrison punch. At completion of the decompression, an angled ball probe could easily be passed along both of the nerve roots into the foramina. The endplates were decorticated. A small ledge of bone was left posteriorly on each endplate. A 5 mm lordotic composite allograft was impacted into place. Anterior osteophytes were resected with the drill and a 17 mm Zevo plate was affixed to the anterior spine at C4-C5 using 13 mm variable angle screws bilaterally at C4 and C5. The locking cam was engaged. Positioning of the construct at C4-C5 was accomplished. The wound margins were inspected. Modest bleeding points were controlled with bipolar cautery. The wound was quite dry. After irrigating the wound out, the platysma was reapproximated in an interrupted fashion with 3-0 Vicryl suture. The skin was closed in a running subcuticular fashion with 3-0 Vicryl suture. A dermal sealant was applied. He was extubated and taken to the recovery room in satisfactory condition. He did receive preoperative antibiotics and Decadron. Victoriano Perales MD* AMMON/mateo Voice Rec. ID #[id number] Original Voice Rec. ID #[id number] Doc ID #[id number] Revision Count: 0 cc: Victoriano Perales MD* DO NOT TEXT EDIT THIS LINE :HIDE AND SKIN FLESHING MACHINE OPERATOR:[id number]: Authenticated by VICTORIANO PERALES M.D. On 09/09/2015 06:25:27 AM documented in this encounter Plan of Treatment Upcoming Encounters Date Type Department Care Team (Late st Contact Info) Description 04/10/2024 4:00 PM EST Appointment [facility] [address] [place] [address] documented as of this encounter Procedures Procedure Name Priority Date/Time Associated Diagnosis Comments FL > 1 HOUR Routine 09/08/2015 11:45 AM EDT CONVERTED (HISTORICAL) SURGICAL PATHOLOGY Routine 09/08/2015 10:20 AM EDT FL C ARM DURING SURGERY Routine 09/08/2015 6:13 AM EDT SCANNED EKG 09/08/2015 CBC (NO DIFF) Routine 09/02/2015 8:50 AM EDT MRSA SCREEN Routine 09/02/2015 8:47 AM EDT documented in this encounter Results * FL > 1 hour (09/08/2015 11:45 AM EDT) Anatomical Region Laterality Modality N/A Radiographic Irina ging 09/08/2015 11:4 5 AM EDT Narrative 09/08/2015 2:39 PM EDT EXAMINATION- ??USE OF FLUOROSCOPY AND INTRAOPERATIVE IMAGING DURING CERVICAL DISCECTOMY WITH ANTERIOR FUSION HISTORY- Severe neck pain with instability FINDINGS- ?? 1. 5 seconds of fluoroscopic time was used during this exam. 2. 3 images were obtained during which cervical fusion was performed at C4-C5 with interbody fusion device. The alignment in the AP and lateral projection appears to be quite excellent. D- ??09/08/2015 E- ??09/08/2015 ? Reading Radiologist- BERNARD OBANDO ? Releasing Radiologist- BERNARD OBANDO ? Released Date Time- 09/08/15 1439 ? Paper Sealer- Tammy. Procedure Note Bernard Borges MD - 09/09/2015 EXAMINATION- USE OF FLUOROSCOPY AND INTRAOPERATIVE IMAGING DURING CERVICAL DISCECTOMY WITH ANTERIOR FUSION HISTORY- Severe neck pain with instability FINDINGS- 1. 5 seconds of fluoroscopic time was used during this exam. 2. 3 images were obtained during which cervical fusion was performed at C4-C5 with interbody fusion device. The alignment in the AP and lateral projection appears to be quite excellent. D- 09/08/2015 E- 09/08/2015 Reading Radiologist- BERNARD OBANDO Releasing Radiologist- BERNARD OBANDO Released Date Time- 09/08/15 7009 Paper Sealer- John.MTeodoro. Victoriano Perales MD IMG FLUOROSCOPY ORDERABLES Fi nal Result * Converted Surgical Pathology (09/08/2015 10:20 AM EDT) CONVERTED (HISTORICAL) CASE TYPE Surgical Pathology [facility] CONVERTED (HISTORICAL) ACCESSION NUMBER [id number] [facility] CONVERTED (HISTORICAL) RESULT STATUS FINAL [facility] CONVERTED (HISTORICAL) SPECIMEN DESCRIPTION Intervertebral disc [facility] 09/08/2015 10:2 0 AM EDT 09/08/2015 10:20 AM EDT Narrative [facility] - 09/09/2015 5:54 PM EDT ? [facility] ? [address] [place] [id number] ? SURGICAL PATHOLOGY REPORT ? Patient Name: ARJUN HALL. ? MR#: [id number] ? : 1965 ? Gender: M ? Ordering Physician: VICTORIANO PERALES ? Copy To: ? Location: 1S 0101-4 ? Collected: 09/08/2015 ? Received: 09/08/2015 ? Reported: 09/09/2015 ? Clinical Diagnosis and History ? 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 ? Final Diagnosis ? Intervertebral disc left C4-5: ?Fibrocartilage from intervertebral disc. ? JFJ/mbc ? Amendments: ? Electronically Signed Out By ? Carl Rios, M.D. ? Specimen(s) Received: ? Intervertebral disc ? Gross Description ? Received in formalin labeled disc is a 2.5x2.5x0.5 cm aggregate of orozco ? fibrocartilaginous soft tissue fragments submitted in toto in one cassette. ? HBM/mbc ? Microscopic Description ? Sections of the intervertebral disc material demonstrate fibrocartilage without ? inflammation or neoplasia. ??JFJ/mbc ? Procedures/Addenda ? us Victoriano Perales MD PATHOLOGY/CYTOLOGY ORDERABLES Final Result [facility]
[address] [place] [address], * FL c arm during surgery (09/08/2015 6:13 AM EDT) Anatomical Region Laterality Modality Body, Other N/A Radiographic Irina ging 09/08/2015 6:13 AM EDT Narrative 09/08/2015 2:39 PM EDT EXAMINATION- ??USE OF FLUOROSCOPY AND INTRAOPERATIVE IMAGING DURING CERVICAL DISCECTOMY WITH ANTERIOR FUSION HISTORY- Severe neck pain with instability FINDINGS- ?? 1. 5 seconds of fluoroscopic time was used during this exam. 2. 3 images were obtained during which cervical fusion was performed at C4-C5 with interbody fusion device. The alignment in the AP and lateral projection appears to be quite excellent. D- ??09/08/2015 E- ??09/08/2015 ? Reading RadiologistYanet OBANDO ? Releasing Katharina OBANDO ? Released Date Time- 09/08/151438 ? Paper Sealer- Lev Procedure Note Bernard Borges MD - 09/09/2015 EXAMINATION- USE OF FLUOROSCOPY AND INTRAOPERATIVE IMAGING DURING CERVICAL DISCECTOMY WITH ANTERIOR FUSION HISTORY- Severe neck pain with instability FINDINGS- 1. 5 seconds of fluoroscopic time was used during this exam. 2. 3 images were obtained during which cervical fusion was performed at C4-C5 with interbody fusion device. The alignment in the AP and lateral projection appears to be quite excellent. D- 09/08/2015 E- 09/08/2015 Reading RadiologistYanet OBANDO Releasing Katharina OBANDO Released Date Time- 09/08/151438 Paper SealerYanet [place] Victoriano Perales MD IMG FLUOROSCOPY ORDERABLES Fi nal Result * SCANNED EKG (09/08/2015) [facility] New Onbase ECG ORDERABLES Final Result * (ABNORMAL) CBC (No diff) (09/02/2015 8:50 AM EDT) WBC 5.79 3.50 - 10.80 [facility] RBC 3.81(L) 4.20 - 5.76 [facility] Hemoglobin 10.9(L) 13.1 - 17.5 g/dL [facility] Hematocrit 33.0(L) 38.9 - 50.9 % [facility] MCV 86.6 80.0 - 99.0 fL [facility] MCH 28.6 27.0 - 31.0 pg [facility] MCHC 33.0 32.0 - 36.0 g/dL [facility] RDW-CV 15.1(H) 11.3 - 14.5 % [facility] Platelets 548(H) 150 - 450 [facility] Blood specimen (specimen) 09/02/2015 8:50 AM EDT 09/02/2015 8:59 AM EDT Narrative [facility] - 09/02/2015 9:19 AM EDT Specimen Type : Blood Trino Shea MD LAB BLOOD ORDERABLES Final Re sult [facility]
[address] [place] [address], * MRSA screen (09/02/2015 8:47 AM EDT) Other 09/02/2015 8:47 AM EDT 09/02/2015 9:16 AM EDT Narrative [facility] - 09/04/2015 9:13 AM EDT Specimen Type : Screening Nares Specimen: Screening Nares Collected: 09/02/2015 08:47 EDT Status: Final ?Last Updated: 09/04/2015 09:13 EDT ?Culture Result (Final) ?No Methicillin Resistant Staph Aureus Isolated us Victoriano Perales MD MICROBIOLOGY - GENERAL MARSHAA JOSUE Final Result [facility]
[address] [place] [address], documented in this encounter Visit Diagnoses Not on filedocumented in this encounter Care Teams Medical Billing Instructor Relationship Specialty Start Date End Date Provider, [place] [address] PCP - General 09/01/15 11/04/15 documented as of this encounter
--- OUTSIDE RECORDS SUMMARY | 2024-04-05 11:56 | XMS_ITS | Encounter Summary ---
Author Organization [employer] Address [address] [place] [address] Care Team Providers Care Cook Helper Pastry Name Role Phone Carl Patton MD Primary Care Provider [phone] Reason for Visit * Reason Onset Date Comments questions med 06/22/2023 Encounter Details Date Type Department Care Team (Late st Contact Info) Description 06/22/2023 Telephone [facility] Card[facility] [address] [place] [address] Helena Romero MD [address] [place] [phone] questions med Social History Tobacco Use Types Packs/Day Years [...] place to sleep or slept in a longterm (including now)? No 06/04/2023 Utilities Answer Date [...] Do you speak a language other than [place]ian at [facility]? No 06/03/2023 Do you want help with [...] as of this encounter Miscellaneous Notes * Addendum Note - Mark Anthony Lyman MA - 06/22/2023 3:47 PM ESTAddended by: MARK ANTHONY LYMAN on: 06/22/2023 03:47 PM Modules accepted: Orders ESTRA MUSICIAN * Telephone Encounter - Mark Anthony Lyman MA - 06/22/2023 3:42 PM EST Phone call to patient. I have scheduled him a f/u appt to see Nick on Tuesday. Per Anna patient may switch to plavix 75 mg. Script will be sent. He verbalized understanding. ESTRA MUSICIAN * Telephone Encounter - Andria Berg - 06/22/2023 1:28 PM EST Mr Melton states he returning a missed call ESTRA MUSICIAN * Telephone Encounter - Mark Anthony Lyman MA - 06/22/2023 1:15 PM EST lvm for patient to return my call. ESTRA MUSICIAN * Telephone Encounter - Andria Berg - 06/22/2023 12:54 PM EST States he is having issues from His procedure done 06/06/23 at [facility] States he is having fatigue and chest pain Also states he stopped Brilinta on his own- and was asking about changing to Plavix ESTRA MUSICIAN documented in this encounter Plan of Treatment Not on file documented as of this encounter Visit Diagnoses Not on filedocumented in this encounter Care Teams Cook Helper Pastry Relationship Specialty Start Date End Date Carl Patton MD [address] [place] [address] PCP - General Family Medicine 06/03/23 documented as of this encounter
--- OUTSIDE RECORDS SUMMARY | 2024-04-05 11:56 | XMS_ITS | Encounter Summary ---
Author Organization [employer] [facility] [employer] Address [address] [place] [address] Care Team Providers Care Pipe Tester Name Role Phone Carl Patton MD Primary Care Provider [phone] Encounter Details Date Type Department Care Team (Late st Contact Info) Description 06/24/2023 1:15 PM EST Office Visit [facility] Cardiology [address] [place] [address] [address] [place] [address] [place] [address] [place] [address] [address] [place] [phone] NSTEMI (non-ST elevated myocardial infarction) (HCC) (Primary Dx) Social History Tobacco Use Types [...] place to sleep or slept in a assisted (including now)? No 06/04/2023 Utilities Answer Date [...] Do you speak a language other than Mongolian at [facility]? No 06/03/2023 Do you want help [...] Pulse 73 06/24/2023 1:24 PM EST Temperature - - Respiratory Rate - - Oxygen Saturation - - Inhaled Oxygen Concentration - - Weight 74.4 kg (164 lb) 06/24/2023 1:24 PM EST Height - - Body Mass Index 24.94 06/03/2023 9:51 AM EST documented in this encounter Plan of Treatment Scheduled Orders Name Type Priority Associated Diagnoses Orde r Schedule ECG 12 lead ECG Routine NSTEMI (non-ST elevated myocardial infarction) ([facility]) Ordered: 06/23/2023 documented as of this encounter Visit Diagnoses Diagnosis NSTEMI (non-ST elevated myocardial infarction) (HCC)- Primary Acute myocardial infarction, subendocardial infarction, episode of care unspecified documented in this encounter Care Teams Pipe Tester Relationship Specialty Start Date End Date Carl Patton MD [address] [place] [address] PCP - General Family Medicine 06/03/23 documented as of this encounter
--- OUTSIDE RECORDS SUMMARY | 2024-04-05 11:56 | XMS_ITS | Encounter Summary ---
Author Organization [facility] Address [address] [place] [id number] Care Team Providers Care Blood Bank Laboratory Technologist Name Role Phone Provider, No Known Primary Care Provider [phone] Reason for Referral * Physical Therapy (Routine) - Closed Specialty Diagnoses / Procedures Referred By Contac t Referred To Contact Physical Therapy Diagnoses Cervical spondylosis with radiculopathy Displacement of cervical intervertebral disc without myelopathy John Bull PA-C Phone: tel: fax: [facility] [address] [place] [address] Phone: tel: Referral ID Status Reason Start Date Expiration Date V isits Requested Visits Authorized [id number] Closed Specialty Services Required 10/08/2015 04/05/2016 20 20 Scheduling Instructions 3x/wk for 4 weeks Reason for Visit * Reason Comments Post-op C4-c5 Disc herniatio n and spondylosis with left upper extremity radiculopathy Encounter Details Date Type Department Care Team (Latest Contact Info) Description 10/08/2015 10:00 AM EDT Office Visit [facility] [address] [place] [address] [address] [place] [address] John Bull PA-C [address] [place] [address] Cervical spondylosis with radiculopathy (Primary Dx); Displacement of cervical intervertebral disc without myelopathy Social History Tobacco Use Types Packs/Day Years [...] Sign Reading Time Taken Comments Blood Pressure 122/72 10/08/2015 10:09 AM EDT Pulse - - Temperature 36.9 ??C (98.4 ??F) 10/08/2015 10:09 AM E DT Respiratory Rate - - Oxygen Saturation - - Inhaled Oxygen Concentration - - Weight 66.7 kg (147 lb) 10/08/2015 10:09 AM EDT Height 172.7 cm (5' 8 ) 10/08/2015 10:09 AM EDT Body Mass Index 22.35 10/08/2015 10:09 AM EDT documented in this encounter Progress Notes * John Bull PA-C - 10/08/2015 10:16 AM EDT Patient: Arjun Melton : 1965 Primary Care Provider: No Known Provider History Chief Complaint: C4-5 disc herniation and spondylosis with left upper extremity radiculopathy History of Present Illness: Mr. Melton is seen in follow-up. He is previously undergone ACDF withallografting and plating at C5 6. More recently he has experienced severe neck and left upper extremity pain. Studies have revealed disc osteophyte complex [place] at C4-5. On 09/08/2015, he underwent uncomplicated anterior cervical discectomy with allografting and plating at C4-5. Postoperatively, alarge majority of his left upper extremity symptoms have resolved. He does continue with some posterior neck pain which radiates into his bilateral shoulder blades. He's had difficulty sleeping at night due to discomfort. He's had numbness surrounding his incision up to his jawline. He denies any swallowing difficulties. Review of Systems Constitutional: Positive for chills and fatigue. HENT: Positive for sinus pressure. Respiratory: Positive for apnea and shortness of breath. Musculoskeletal: Positive for back pain, neck pain and neck stiffness. Allergic/Immunologic: Positive for environmental allergies. Neurological: Positive for weakness. Psychiatric/Behavioral: Positive for sleep disturbance. All other systems reviewed and are negative. Physical Exam: He is alert and oriented ??3. He walks with steady gait. Cervical range of motion islargely preserved. Cervical incision is healing nicely without warmth, erythema, or induration. Medical Decision Making Data Review: Plain films of the cervical spine reveal excellent alignment and fixation of his construct from C4 to C5 as well as his previous fusion at C5 6 Treatment Options: Mr. Melton is making improvements. I believe that time a large majority of hissymptoms will continue to dissipate. Given that high demand of his job he will remain off work. In the meantime, he will attend formal physical therapy. I provided him a prescription for Flexeril 10 mg 1 by mouth 3 times a day #45 with no refills. Hopefully this will help with his muscular type spasms in his posterior neck as well as help with his discomfort at night. I've also refilled his Norco10 mg we will continue to step down off his narcotic- based medications for future reference. He will follow up in our office in approximately 3-4 weeks to discuss return to work. Diagnosis Plan 1. Cervical spondylosis with radiculopathy Ambulatory referral to Physical Therapy Evaluate and treat 2. Displacement of cervical intervertebral disc without myelopathy Ambulatory referral to Physical Therapy Evaluate and treat documented in this encounter Plan of Treatment Upcoming Encounters Date Type Department Care Team (Late st Contact Info) Description 04/10/2024 4:00 PM EST Appointment [facility] [address] [place] [address] documented as of this encounter Visit Diagnoses Diagnosis Cervical spondylosis with radiculopathy- Primary Cervical spondylosis with myelopathy Displacement of cervical intervertebral disc without myelopathy documented in this encounter Care Teams Blood Bank Laboratory Technologist Relationship Specialty Start Date End Date Provider, [place] [address] PCP - General 09/01/15 11/04/15 documented as of this encounter
--- OUTSIDE RECORDS SUMMARY | 2024-04-05 11:56 | XMS_ITS | Encounter Summary ---
Author Organization [facility] Address [address] [place] [id number] Care Team Providers Care Technical Operator Name Role Phone Noah Wagner MD Primary Care Provider Encounter Details Date Type Department Care Team (Late st Contact Info) Description 06/24/2015 5:53 AM EST - 06/24/2015 9:55 AM EST Hospital En[facility] [address] [id number] Victoriano Perales MD [address] [place] [address] Discharge Disposition: Home or Self Care Social [...] 4:00 PM EST Appointment [facility] AT [address] [address] documented as of this encounter Procedures Procedure Name Priority Date/Time Associated Diagnosis Comments IR MYELOGRAM CERVICAL SPINE Routine 06/24/2015 6:[address] CERVICAL SPINE W CONTRAST Routine 06/24/2015 1:26 AM EST documented in this encounter Results * IR myelogram cervical spine (06/24/2015 6:28 AM EST) Anatomical Region Laterality Modality Spine X-Ray Angiograph y 06/24/2015 6:28 AM EST Narrative 06/24/2015 5:18 PM EST EXAMINATION- RF MYELOGRAM CERVICAL PNL- INDICATION- NECK PAIN ??neck pain, left arm pain TECHNIQUE- 1 minute and 28 seconds of fluoroscopic time was used for this procedure. Injection of intrathecal contrast was performed by Dr. Victoriano Perales. Please see Dr. Perales's procedure note for further details. With shoulder braces, the patient was secured and the table was tilted head down to facilitate movement of contrast into the cervical spine. Images of the cervical spine were obtained in AP, oblique, and lateral projections. The patient was taken directly to the CT scanner for further imaging. Patient tolerated the procedure well, and no immediate complications occurred. COMPARISON- NONE FINDINGS- There are postoperative changes that are consistent with a fusion of the C5-C6 vertebrae. Was good filling of the thecal sac. No intrathecal mass was identified. There is mild anterior impression on the thecal sac at the C3-C4 level. There is effacement of the nerve root sleeve on the left the C4-C5 level. Please correlate with CT imaging. ? IMPRESSION- 1. Status post C5-C6 fusion 2. Mild anterior impression on the thecal sac at the C3-C4 level 3. Effacement of the nerve root sleeve on the left at the C4-C5 level 4. Please correlate with CT imaging ? Reading Radiologist- ANTIONETTE ARMENTA ? Releasing Radiologist- BERNARD OBANDO ? Released Date Time- 06/24/15 1718 ? Research Mechanic- N.D. Procedure Note Antionette Miranda PA - 06/24/2015 EXAMINATION- RF MYELOGRAM CERVICAL PNL- INDICATION- NECK PAIN neck pain, left arm pain TECHNIQUE- 1 minute and 28 seconds of fluoroscopic time was used for this procedure. Injection of intrathecal contrast was performed by Dr. Victoriano Perales. Please see Dr. Perales's procedure note for further details. With shoulder braces, the patient was secured and the table was tilted head down to facilitate movement of contrast into the cervical spine. Images of the cervical spine were obtained in AP, oblique, and lateral projections. The patient was taken directly to the CT scanner for further imaging. Patient tolerated the procedure well, and no immediate complications occurred. COMPARISON- NONE FINDINGS- There are postoperative changes that are consistent with a fusion of the C5-C6 vertebrae. Was good filling of the thecal sac. No intrathecal mass was identified. There is mild anterior impression on the thecal sac at the C3-C4 level. There is effacement of the nerve root sleeve on the left the C4-C5 level. Please correlate with CT imaging. IMPRESSION- 1. Status post C5-C6 fusion 2. Mild anterior impression on the thecal sac at the C3-C4 level 3. Effacement of the nerve root sleeve on the left at the C4-C5 level 4. Please correlate with CT imaging Reading Radiologist- ANTIONETTE ARMENTA Releasing Radiologist- BERNARD OBANDO Released Date Time- 06/24/15 9461 Research Mechanic- N.D. us Victoriano Perales MD IMG IR ORDERABLES Final Resul t * CT cervical spine w contrast (06/24/2015 1:26 AM EST) Anatomical Region Laterality Modality C-spine N/A Computed Tomogra phy 06/24/2015 1:26 AM EST Narrative 06/24/2015 12:21 PM EST EXAMINATION- CT CERVICAL SPINE W CONTRAST- INDICATION- Cervical herniation, neck pain and left arm pain, followup previous cervical fusion C5-C6, and followup cervical myelogram. Examination performed after cervical myelogram. TECHNIQUE- CT datasets of the cervical spine were performed after cervical myelogram. Images were acquired transaxial, coronal and sagittal as well as angled interspace transaxial datasets. The radiation dose reduction device was turned on for each scan per the ALARA (As Low as Reasonably Achievable) protocol. COMPARISON- None. FINDINGS- 1. The skull base, foramen magnum, C1 and C2 alignment are all within normal limits. The mastoids are clear and the middle ear compartments are unremarkable. 2. The patient has had previous fusion at C5-C6. 3. The dominant finding is a soft disc protrusion and herniation centrally and leftward at C4-C5 extending to the left proximal lateral recess and the uncovertebral recess on the left. This produces a defect on the dural sac centrally and leftward with a small amount of anterior leftward cord compression and cord tilt. 4. No other dominant dural sac defect is seen and no other lateralizing impingement is noted. There is arthropathy and hypertrophy of the uncovertebral recesses. Cervical cord appears to be intact. 5. There is reversal of the cervical lordosis in the mid and upper cervical spine. There is arthropathy and some mild osteophyte formation at the level of fusion at C5-C6. Facets are normally opposed and well aligned. IMPRESSION- 1. Multilevel mild degenerative arthropathy and spurring is noted. This is seen centrally and leftward at C3-C4. 2. The dominant finding, however, is a soft disc protrusion at C4-C5 centrally and leftward producing a dominant defect on the central leftward aspect of the dural sac and compressing the anterior leftward cord producing a mild tilt and displacement of the cord. This soft disc protrusion extends to the leftward uncovertebral recess. 3. There is arthropathy at the previously fused C5-C6 level. There is mild reversal of cervical lordosis. 4. Intramedullary cervical cord lesion is otherwise not identified, however, these are substantial abnormalities, most focally dominant at C4-C5 centrally and leftward. D- ??06/24/2015 E- ??06/24/2015 ? Reading Radiologist- BERNARD OBANDO ? Releasing Radiologist- BERNARD OBANDO ? Released Date Time- 06/24/15 1221 ? Research Mechanic- Kael Procedure Note Bernard Borges MD - 06/24/2015 EXAMINATION- CT CERVICAL SPINE W CONTRAST- INDICATION- Cervical herniation, neck pain and left arm pain, followup previous cervical fusion C5-C6, and followup cervical myelogram. Examination performed after cervical myelogram. TECHNIQUE- CT datasets of the cervical spine were performed after cervical myelogram. Images were acquired transaxial, coronal and sagittal as well as angled interspace transaxial datasets. The radiation dose reduction device was turned on for each scan per the ALARA (As Low as Reasonably Achievable) protocol. COMPARISON- None. FINDINGS- 1. The skull base, foramen magnum, C1 and C2 alignment are all within normal limits. The mastoids are clear and the middle ear compartments are unremarkable. 2. The patient has had previous fusion at C5-C6. 3. The dominant finding is a soft disc protrusion and herniation centrally and leftward at C4-C5 extending to the left proximal lateral recess and the uncovertebral recess on the left. This produces a defect on the dural sac centrally and leftward with a small amount of anterior leftward cord compression and cord tilt. 4. No other dominant dural sac defect is seen and no other lateralizing impingement is noted. There is arthropathy and hypertrophy of the uncovertebral recesses. Cervical cord appears to be intact. 5. There is reversal of the cervical lordosis in the mid and upper cervical spine. There is arthropathy and some mild osteophyte formation at the level of fusion at C5-C6. Facets are normally opposed and well aligned. IMPRESSION- 1. Multilevel mild degenerative arthropathy and spurring is noted. This is seen centrally and leftward at C3-C4. 2. The dominant finding, however, is a soft disc protrusion at C4-C5 centrally and leftward producing a dominant defect on the central leftward aspect of the dural sac and compressing the anterior leftward cord producing a mild tilt and displacement of the cord. This soft disc protrusion extends to the leftward uncovertebral recess. 3. There is arthropathy at the previously fused C5-C6 level. There is mild reversal of cervical lordosis. 4. Intramedullary cervical cord lesion is otherwise not identified, however, these are substantial abnormalities, most focally dominant at C4-C5 centrally and leftward. D- 06/24/2015 E- 06/24/2015 Reading Radiologist- BERNARD OBANDO Releasing Radiologist- BERNARD OBANDO Released Date Time- 06/24/15 1221 Research Mechanic- Kael Victoriano Perales MD IMG CT ORDERABLES Final Resul t documented in this encounter Visit Diagnoses Not on filedocumented in this encounter Care Teams Technical Operator Relationship Specialty Start Date End Date Noah Wagner MD [address] [place] [address] PCP - General 06/24/15 06/25/15 documented as of this encounter
--- OUTSIDE RECORDS SUMMARY | 2024-04-05 11:56 | XMS_ITS | Encounter Summary ---
Author Organization [facility] Address [address] [place] [id number] Care Team Providers Care Cryptographer Name Role Phone Noah Wagner MD Primary Care Provider [phone] Encounter Details Date Type Department Care Team (Late Contact Info) Description 11/05/2015 Refill [facility] [address] [place] [address] John Bull, PAYanetC [address] [id number] Social History Tobacco Use Types Packs/Day Years [...] Info) Description 04/10/2024 4:00 PM EST Appointment [facility] AT [address] [address] documented as of this encounter Visit Diagnoses Not on filedocumented in this encounter Care Teams Cryptographer Relationship Specialty Start Date End Date Noah Wagner MD [address] [place] [address] PCP - General Family Medicine 11/05/15 documented as of this encounter
--- OUTSIDE RECORDS SUMMARY | 2024-04-05 11:56 | XMS_ITS | Encounter Summary ---
Author Organization [facility] Address [address] [place] [id number] Care Team Providers Care Chair Installer Name Role Phone Noah Wagner MD Primary Care Provider [phone] Reason for Referral * Physical Therapy (Routine) - Closed Specialty Diagnoses / Procedures Referred By Contac t Referred To Contact Physical Therapy Diagnoses Displacement of cervical intervertebral disc without myelopathy Cervical spondylosis with radiculopathy John Bull PA-C Phone: tel: fax: LOCATION NOT FOUND IN SYSTEM [facility] [place] [address] Phone: tel: Referral ID Status Reason Start Date Expiration Date V isits Requested Visits Authorized [id number] Closed Specialty Services Required 11/05/2015 05/03/2016 20 20 Reason for Visit * Reason Comments Follow-up Encounter Details Date Type Department Care Team (Latest Contact Info) Description 11/05/2015 11:00 AM EDT Office Visit [facility] [address] [place] [address] John Bull PA-C [address] [place] [address] Displacement of cervical intervertebral disc without myelopathy (Primary Dx); Cervical spondylosis with radiculopathy Social History Tobacco Use Types Packs/Day Years [...] Sign Reading Time Taken Comments Blood Pressure 124/80 11/05/2015 11:06 AM EDT Pulse - - Temperature 36.3 ??C (97.3 ??F) 11/05/2015 11:06 AM E DT Respiratory Rate - - Oxygen Saturation - - Inhaled Oxygen Concentration - - Weight 68.9 kg (152 lb) 11/05/2015 11:06 AM EDT Height 172.7 cm (5' 8 ) 11/05/2015 11:06 AM EDT Body Mass Index 23.11 11/05/2015 11:06 AM EDT documented in this encounter Progress Notes * John Bull PA-C - 11/05/2015 11:13 AM EDT Patient: Arjun Melton : 1965 Primary Care Provider: Noah Wagner MD Requesting Physician: Same History Chief Complaint: 1. C4 5 disc herniation 2. Cervical spondylosis with left upper extremity radiculopathy History of Present Illness: Mr. Melton is seen in follow-up. He has previously undergone ACDF with allografting at C5 6. On 09/08/2015 he underwent uncomplicated anterior cervical discectomy with allografting and plating at C4 5. A large majority of his left upper extremity symptoms have resolved.He continues with posterior neck pain which radiates into his bilateral shoulder blades. He has difficulty sleeping. Flexeril which was previously prescribed has not helped. He has been attending physical therapy and has made improvements. He has noticed that with prolonged activities such as mowing the grass or gardening he has increased symptoms for several days following this. He has run out of his narcotic-based medication and has been using Tylenol. Review of Systems HENT: Positive for trouble swallowing. Respiratory: Positive for apnea. Endocrine: Positive for polydipsia. Musculoskeletal: Positive for myalgias, neck pain and neck stiffness. Allergic/Immunologic: Positive for environmental allergies. Neurological: Positive for weakness. Psychiatric/Behavioral: Positive for sleep disturbance. All other systems reviewed and are negative. Physical Exam: He is alert and oriented ??3. He is in no acute distress. He walks with steady gait.Range of motion cervical spine is largely preserved. Cervical incision is healing nicely without warmth, erythema, or induration. Medical Decision Making Treatment Options: Mr. Melton continues with low-grade symptoms on a daily basis. I would like for him to continue formal physical therapy. He will return to work in approximately 3 weeks without restrictions. He will begin the reentry program at that time. He will follow up Dr. Perales in approximate 6-7 weeks to check on his progress. I provided him a prescription for [place] 7.5 one by mouth 3 times a day when necessary pain #45 with no refills. We will continue to step down on his narcotic-based medications. Diagnosis Plan 1. Displacement of cervical intervertebral disc without myelopathy Ambulatory referral to Physical Therapy Evaluate and treat 2. Cervical spondylosis with radiculopathy Ambulatory referral to Physical Therapy Evaluate and treat documented in this encounter Plan of Treatment Upcoming Encounters Date Type Department Care Team (Late st Contact Info) Description 04/10/2024 4:00 PM EST Appointment [facility] AT [address] [address] documented as of this encounter Visit Diagnoses Diagnosis Displacement of cervical intervertebral disc without myelopathy- Primary Cervical spondylosis with radiculopathy Cervical spondylosis with myelopathy documented in this encounter Care Teams Chair Installer Relationship Specialty Start Date End Date Noah Wagner MD [address] [place] [address] PCP - General Family Medicine 11/05/15 documented as of this encounter
--- OUTSIDE RECORDS SUMMARY | 2024-04-05 11:56 | XMS_ITS | Referral Summary ---
Author Organization [facility] Address [address] [place] [address] Care Team Providers Care Agricultural Equipment Salesperson Name Role Phone Carl Patton MD Primary Care Provider [phone] Encounters Date Type Department Care Team Description 03/22/2024 Outside Orders [facility] Central Scheduling [address] [place] [address] John Douglas MD Chronic kidney disease, unspecified CKD stage (Primary Dx) from Last 3 Months Allergies No known active allergies Medications lisinopriL [...] NSTEMI (non-ST elevated myocardial infarction) 0 06/03/2023 Social History Tobacco Use Types Packs/Day Years [...] place to sleep or slept in a snf (including now)? No 06/04/2023 Utilities Answer Date Recorded In the past 12 months, has t he [employer], gas, oil, or water [employer] threatened to shut off services in your [...] Do you speak a language other than [facility]? No 06/03/2023 Do you want help [...] 06/03/2023 9:51 AM EST Plan of Treatment Not on file Procedures Procedure Name Priority Date/Time Associated Diagnosis Comments LIPID PANEL STAT 06/04/2023 8:35 AM EST from Last 3 Months or Most Recently Relevant to Health Maintenance Results * (ABNORMAL) Lipid panel (06/04/2023 8:35 AM EST) Triglycerides 117 0 - 249 mg/dL 06/04/2023 9:21 AM EST [facility] Cholesterol 235(H) 0 - 199 mg/dL 06/04/2023 9:21 AM EST [facility] Comment: 200 to 239 mg/dL = ??Moderate (borderline) >239 mg/dL ? = ??High HDL 55 >=40 mg/dL 06/04/2023 9:21 AM EST [facility] Comment: >=60 mg/dL = Desirable <40 mg/dL ??= Increased Risk All other components are listed individually or are calculations VLDL 23.4 5 - 40 mg/dL 06/04/2023 9:21 AM EST [facility] Cholesterol/HDL ratio 4.3(H) 0.0 - 3.2 06/04/2023 9:21 AM EST [facility] LDl/HDL Ratio 3 0 - 4 06/04/2023 9:21 AM EST [facility] RISK COMP 4 06/04/2023 9:21 AM [facility] LDL Cholesterol, Calculated 157(H) 0 - 99 mg/dL 06/04/2023 9:21 AM [facility] Blood Venipuncture / Unknown 06/04/2023 8:35 AM EST 06/04/2023 8:53 AM EST Matilde Welch MD LAB BLOOD ORDERABLES Sharyn bhakta Result Performing Organization Address [facility]/State/ZIP Co de Phone Number [facility] [address] [phone] from Last 3 Months or Most Recently Relevant to Health Maintenance Insurance BLUE CROSS/BLUE [employer]IELD Advance Directives For more information, please contact: [phone] * Full Code (Latest Code Status on File) Date Activated Date Inactivated Comments 06/06/2023 12:34 PM 06/07/2023 4:41 PM * Full Code Date Activated Date Inactivated Comments 06/03/2023 10:28 AM 06/06/2023 12:34 PM Care Teams Agricultural Equipment Salesperson Relationship Specialty Start Date End Date Carl Patton MD [address] [place] [address] PCP - General Family Medicine 06/03/23
--- OUTSIDE RECORDS SUMMARY | 2024-04-05 11:57 | XMS_ITS | Encounter Summary ---
Author Organization [facility] Address [address] [place] [address] Care Team Providers Care Certified Nurses Aide Name Role Phone Carl Patton MD Primary Care Provider [phone] Encounter Details Date Type Department Care Team (Late st Contact Info) Description 12/30/2020 Transcribed Document [facility] Family Medicine [facility] [place] [place], [place] [id number] ProviderLucy MD [address] [place] [address] Social History Tobacco Use Types Packs/Day Years Used Date Smoking Tobacco: Never Assessed Sex and Gender Information Value Date Recorded Sex Assigned at Not on file Legal Sex Male 5:20 PM CDT Gender Identity Not on file Sexual Orientation Not on file documented as of this encounter Miscellaneous Notes * Cerner Conversion Note - Lucy ProviderMD - 12/30/2020 9:53 AM CDT Spiritual Care Assessment Entered On: 12/30/2020 12:53 EDT Performed On: 12/30/2020 11:00 EDT by JACK ALFARO General Information Initial Visit : Yes Referred by : Patient Referral Reason Comment : Advance directive Professional Skateboarder Services Provided : Yes Professional Skateboarder Services Provided Comment : Living will Ministry Provided to : Patient, Family/Significant other Yazidi Preference : Other: No JACK ALFARO 12/30/2020 12:50 EDT Spiritual Assessment Spiritual Assessment Comment/Summary Points : Assisted patient in completing and notarizing living will; copy on chart. S.O. present. Spirital Assessment Comment/Summary Report : SPIRITUAL ASSESSMENT COMMENT/SUMMARY No qualifying data available. JACK ALFARO 12/30/2020 12:50 EDT Interventions Advance Directive Information Provided : Yes Emotional Support : Empathic/Engaged listening, Family/Significant other supported, Information provided Spiritual and Yazidi : Spiritual/Yazidi support provided JACK ALFARO 12/30/2020 12:50 EDT Electronically signed by [facility] Conversion Harvest Worker Cerner at 08/31/2022 10:41 PM CDT documented in this encounter Plan of Treatment Not on file documented as of this encounter Visit Diagnoses Not on filedocumented in this encounter Care Teams Certified Nurses Aide Relationship Specialty Start Date End Date Carl Patton MD [address] [place] [address] PCP - General Family Medicine 06/03/23 documented as of this encounter
--- OUTSIDE RECORDS SUMMARY | 2024-04-05 11:57 | XMS_ITS | Encounter Summary ---
Author Organization [facility] Address [address] [place] [address] Care Team Providers Care Warehouse Representative Name Role Phone Noah Wagner MD Primary Care Provider [phone] Reason for Visit * Imaging (Routine) - Closed Specialty Diagnoses / Procedures Referred By Renee meza Referred To Contact Diagnoses Weight loss Procedures VAS US Mesenteric Artery Duplex [facility] [address] [place] [address] Phone: tel: fax: [facility] [address] [address] Phone: tel: fax: Referral ID Status Reason Start Date Expiration Date V isits Requested Visits Authorized [id number] Closed Perform Procedure 01/17/2024 07/18/2025 1 1 Encounter Details Date Type Department Care Team (Latest Contact Info) Description 01/30/2024 10:30 AM EDT - 01/30/2024 11:59 PM EDT Hospital Encounter [facility] [address] [place] [id number] Discharge Disposition: Home or Self Care Social History Tobacco Use Types Packs/Day Years Used Date Smoking Tobacco: Never Assessed Sex and Gender Information Value Date Recorded Sex Assigned at Not on file Legal Sex Male 8:26 PM EDT Gender Identity Not on file Sexual Orientation Not on file documented as of this encounter Plan of Treatment Not on file documented as of this encounter Procedures Procedure Name Priority Date/Time Associated Diagnosis Comments VAS US MESENTERIC ARTERY DUPLEX Routine 01/30/2024 11:07 AM EDT Weight loss documented in this encounter Results * VAS US Mesenteric Artery Duplex (01/30/2024 11:07 AM EDT) Anatomical Region Laterality Modality Vascular Ultrasound Impressions 01/31/2024 4:03 PM EDT Abnormal study. 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 COMMUNICATION: Per this written report. Preliminary report signed by Christina Rhoades RVT on 01/30/2024 11:17 AM By electronically signing this report, I, the attending physician, attest that I have personally reviewed the images/data for the above examination(s) and I agree with the final edited report. Drafted by Christina Rhoades RVT on 01/30/2024 11:14 AM Final report signed by Jair Smith MD on 01/31/2024 4:03 PM Narrative 01/31/2024 4:03 PM EDT CLINICAL INDICATION: Weight loss TECHNIQUE: Non-invasive, real time duplex exam of the mesenteric circulation with Doppler ultrasonic waveform and spectral analysis was performed. COMPARISON: None. FINDINGS: Mesenteric artery duplex demonstrates the following flow velocities: Aorta suprarenal: 48 cm/s SMA origin: 116 cm/s SMA prox: 204 cm/s SMA mid: 152 cm/s SMA distal: 80 cm/s Celiac origin: 269 cm/s Celiac distal: 201 cm/s Splenic artery: 152 cm/s Hepatic artery: 88 cm/s BIPIN: 104 cm/s Procedure Note Jair Smith MD - 01/31/2024 CLINICAL INDICATION: Weight loss TECHNIQUE: Non-invasive, real time duplex exam of the mesenteric circulation withDoppler ultrasonic waveform and spectral analysis was performed. COMPARISON: None. FINDINGS: Mesenteric artery duplex demonstrates the following flow velocities: Aorta suprarenal: 48 cm/s SMA origin: 116 cm/s SMA prox: 204 cm/s SMA mid: 152 cm/s SMA distal: 80 cm/s Celiac origin: 269 cm/s Celiac distal: 201 cm/s Splenic artery: 152 cm/s Hepatic artery: 88 cm/s BIPIN: 104 cm/s IMPRESSION: Abnormal study. Mesenteric arteries are patent with evidence of ahemodynamically significant stenosis identified at the origin of theceliac artery. COMMUNICATION: Per this written report. Preliminary report signed by Christina Rhoades RVT on 01/30/2024 11:17 AM By electronically signing this report, I, the attending physician, attestthat I have personally reviewed the images/data for the aboveexamination(s) and I agree with the final edited report. Drafted by Christina Rhoades RVT on 01/30/2024 11:14 AM Final report signed by Jair Smith MD on 01/31/2024 4:03 PM Pending sale to [facility] CV VASCULAR PROCEDURES Sharyn l Result documented in this encounter Visit Diagnoses Not on filedocumented in this encounter Care Teams Warehouse Representative Relationship Specialty Start Date End Date Noah Wagner MD [address] [place] [address] PCP - General 09/26/20 documented as of this encounter
--- OUTSIDE RECORDS SUMMARY | 2024-04-05 11:57 | XMS_ITS | Encounter Summary ---
Author Organization [employer] Address [address] [place] [address] Care Team Providers Care Water Superintendent Name Role Phone Unavailable Primary Care Provider Unavailabl e Encounter Details Date Type Department Care Team (Late st Contact Info) Description 01/12/2021 Historic Encounter [facility] Radiology [address] [place] [address] Jennifer Rosario MD [address] [facility] [address] [place] [id number] Social History Tobacco Use Types Packs/Day Years [...] Name Priority Date/Time Associated Diagnosis Comments XR CHEST 2 VIEWS STAT 01/12/2021 1:35 PM EDT CBC W/ AUTO DIFF ([facility] DATA CONV) Routine 01/12/2021 12:40 PM EDT AUTOMATED DIFFERENTIAL ([facility] DATA CONV) Routine 01/12/2021 12:40 PM EDT CMP COMPREHENSIVE METABOLIC PANEL ([facility] DATA CONV) Routine 01/12/2021 12:40 PM EDT TROPONIN I ULTRA ([facility] DATA CONV) Routine 01/12/2021 12:40 PM EDT documented in this encounter Results * XR chest 2 views (01/12/2021 1:35 PM EDT) Anatomical Region Laterality Modality Chest X-Ray 01/12/2021 1:35 PM EDT Narrative 01/12/2021 8:05 PM EDT TWO VIEW CHEST ? HISTORY: ??Precordial chest pain radiating to the left arm. COMPARISON: August 27, 2014. FINDINGS: The heart is normal in size. The mediastinum is unremarkable. There is evidence of prior granulomatous disease. The lungs are otherwise clear. There is no pneumothorax. The osseous structures demonstrate no acute abnormality. ? IMPRESSION: ??No acute cardiopulmonary process. Images reviewed, interpreted, and dictated by Dr. Jennifer Rosario. Transcribed by Ade Contreras PA-C. I have personally viewed, interpreted and dictated the examination. I have read and agree with the above final transcribed report. Procedure Note Jennifer Rosario MD - 08/31/2022 TWO VIEW CHEST HISTORY: Precordial chest pain radiating to the left arm. COMPARISON: August 27, 2014. FINDINGS: The heart is normal in size. The mediastinum is unremarkable. There is evidence of prior granulomatous disease. The lungs are otherwise clear. There is no pneumothorax. The osseous structures demonstrate no acute abnormality. IMPRESSION: No acute cardiopulmonary process. Images reviewed, interpreted, and dictated by Dr. Jennifer Rosario. Transcribed by Ade Contreras PA-C. I have personally viewed, interpreted and dictated the examination. I have read and agree with the above final transcribed report. Jennifer Rosario MD IMG DIAGNOSTIC IMAGING ORDERABL ES Final Result * TROPONIN I ULTRA ([facility] DATA CONV) (01/12/2021 12:40 PM EDT) TroponinI Ultra <0.015 0.015 - 0.045 ng/mL 01/12/2021 5:09 PM EDT Comment: Troponin Result (ng/ml) ?* Interpretation 0.015 ? 0.045 ?* ??Normal; less than 99th percentile of normal range >0.045 ? * Abnormal; greater than 99th percentile of normal range. ?? Test precision at 0.045 ng/ml is less than 10% Coefficient of Variation. Biotin supplements can cause clinically significant incorrect lab results. The FDA has seen an increase in the number of adverse events related to biotin interference with lab tests. Blood 01/12/2021 12:4 0 PM EDT 01/12/2021 4:47 PM EDT [facility] Historical Provider LAB BLOOD ORDERABLES Fi nal Result [facility] [address] [place] [address], [facility] [phone] * (ABNORMAL) CMP COMPREHENSIVE METABOLIC PANEL ([facility] DATA CONV) (01/12/2021 12:40 PM EDT) Sodium Level 136 136 - 146 mmol/L 01/12/2021 5:09 PM EDT Potassium Level 4.6 3.5 - 5.1 mmol/L 01/12/2021 5:09 PM EDT Chloride Level 107 102 - 112 mmol/L 01/12/2021 5:09 PM EDT Carbon Dioxide Level 22 21 - 32 mmol/L 01/12/2021 5:09 PM EDT Anion Gap 12 9 - 20 01/12/2021 5:09 PM EDT Calcium Level 8.7 8.4 - 10.1 mg/dL 01/12/2021 5:09 PM EDT Glucose Level 97 74 - 106 mg/dL 01/12/2021 5:09 PM EDT Comment: PPTV has become aware of sulfasalazine and sulfapyridine drug interference in the assays ALT, AST, T4, CKMB, glucose, and ammonia. The probability of misinterpretation of results for the assays is remote and would be limited to scenarios where a patient has taken the drug and had a blood sample drawn before clearance of the drug to a level that does not interfere with laboratory testing. Venipuncture should occur prior to administration of the drug. Blood Urea Nitrogen 33(H) 7 - 22 mg/dL 01/12/2021 5:09 PM EDT Creatinine Level 2.00(H) 0.70 - 1.30 mg/dL 01/12/2021 5:09 PM EDT Bun/Creatinine 16.5 8.0 - 20.0 01/12/2021 5:09 PM EDT Albumin Level 3.7 3.4 - 5.0 Gram/dL 01/12/2021 5:09 PM EDT Protein, Total 7.2 6.4 - 8.2 Gram/dL 01/12/2021 5:09 PM EDT A/G Ratio 1.1 1.1 - 2.5 01/12/2021 5:09 PM EDT Alk Phos 72 27 - 136 Units/Lit er 01/12/2021 5:09 PM EDT ALT 25 16 - 61 Units/Lit er 01/12/2021 5:09 PM EDT Comment: PPTV has become aware of sulfasalazine and sulfapyridine drug interference in the assays ALT, AST, T4, CKMB, glucose, and ammonia. The probability of misinterpretation of results for the assays is remote and would be limited to scenarios where a patient has taken the drug and had a blood sample drawn before clearance of the drug to a level that does not interfere with laboratory testing. Venipuncture should occur prior to administration of the drug. AST 14 5 - 37 Units/Lit er 01/12/2021 5:09 PM EDT Comment: PPTV has become aware of sulfasalazine and sulfapyridine drug interference in the assays ALT, AST, T4, CKMB, glucose, and ammonia. The probability of misinterpretation of results for the assays is remote and would be limited to scenarios where a patient has taken the drug and had a blood sample drawn before clearance of the drug to a level that does not interfere with laboratory testing. Venipuncture should occur prior to administration of the drug. Bilirubin, Total 0.2 0.2 - 1.2 mg/dL 01/12/2021 5:09 PM EDT Comment: Total bilirubin results may be falsely elevated in patients undergoing treatment with eltrombopag (Promacta). Results should be correlated to clinical symptomology and additional laboratory testing including other markers for liver function, e.g., alanine aminotransferase, aspartate aminotransferase, alkaline phosphatase, and/or lactate dehydrogenase. Globulin 3.5 1.5 - 4.5 Gram/dL 01/12/2021 5:09 PM EDT eGFR 42(L) >=60 mL/min/1. 73m2 01/12/2021 5:09 PM EDT Comment: GFR <60 suggests chronic kidney disease, if found over 3 month period. GFR <15 indicates renal failure. eGFR NonAfrican 35(L) >=60 mL/min/1. 73m2 01/12/2021 5:09 PM EDT Comment: GFR <60 suggests chronic kidney disease, if found over 3 month period. GFR <15 indicates renal failure. Blood 01/12/2021 12:4 0 PM EDT 01/12/2021 4:47 PM EDT [facility] Historical Provider LAB BLOOD ORDERABLES Fi nal Result [facility] [address] [place] [address] * (ABNORMAL) CBC W/ AUTO DIFF ([facility] DATA CONV) (01/12/2021 12:40 PM EDT) WBC 18.0(H) 3.6 - 9.5 K/uL 01/12/2021 4:50 PM EDT RBC 4.47 4.20 - 5.70 Million/uL 01/12/2021 4:50 PM EDT Hgb 12.7(L) 13.5 - 17.3 g/dL 01/12/2021 4:50 PM EDT Hct 39.2(L) 40.1 - 51.0 % 01/12/2021 4:50 PM EDT MCV 87.7 79.0 - 94.8 fL 01/12/2021 4:50 PM EDT MCH 28.4 25.6 - 32.2 pg 01/12/2021 4:50 PM EDT MCHC 32.4 32.2 - 36.5 Gram/dL 01/12/2021 4:50 PM EDT RDW 15.0(H) 11.7 - 14.9 % 01/12/2021 4:50 PM EDT Platelet Count 497(H) 163 - 369 K/uL 01/12/2021 4:50 PM EDT MPV 9.4 9.4 - 12.4 fL 01/12/2021 4:50 PM EDT Slide Review No 01/12/2021 4:50 PM EDT Blood 01/12/2021 12:4 0 PM EDT 01/12/2021 4:47 PM EDT [facility] Historical Provider LAB BLOOD ORDERABLES Fi nal Result [facility] [address] [phone] * (ABNORMAL) AUTOMATED DIFFERENTIAL ([facility] DATA CONV) (01/12/2021 12:40 PM EDT) Neut% 73.7(H) 34.0 - 71.0 % 01/12/2021 4:50 PM EDT Lymph% 11.8(L) 19.3 - 53.1 % 01/12/2021 4:50 PM EDT Fillmore% 7.3 3.0 - 9.0 % 01/12/2021 4:50 PM EDT Eos% 2.7 0.0 - 7.0 % 01/12/2021 4:50 PM EDT Baso% 0.7 0.0 - 1.5 % 01/12/2021 4:50 PM EDT IG% 3.80(H) 0.00 - 0.60 % 01/12/2021 4:50 PM EDT Neut# 13.29(H) 1.56 - 6.13 K/uL 01/12/2021 4:50 PM EDT Lymph# 2.13 1.00 - 3.90 x10(3)/uL 01/12/2021 4:50 PM EDT Fillmore# 1.32(H) 0.16 - 1.00 K/uL 01/12/2021 4:50 PM EDT Eos# 0.49 0.00 - 0.80 x10(3)/uL 01/12/2021 4:50 PM EDT Baso# 0.13 0.00 - 0.20 x10(3)/uL 01/12/2021 4:50 PM EDT IG# 0.69(H) 0.00 - 0.05 x10(3)/uL 01/12/2021 4:50 PM EDT Blood 01/12/2021 12:4 0 PM EDT 01/12/2021 4:47 PM EDT Narrative [facility] - 01/12/2021 4:50 PM EDT Added by Discern Expert [facility] Historical Provider LAB BLOOD ORDERABLES Fi nal Result [facility] [address] [place] [address] documented in this encounter Visit Diagnoses Not on filedocumented in this encounter
--- OUTSIDE RECORDS SUMMARY | 2024-04-05 11:57 | XMS_ITS | Encounter Summary ---
Author Organization [employer] Address [address] [place] [address] Care Team Providers Care Mechanical Estimator Name Role Phone Carl Patton MD Primary Care Provider [phone] Encounter Details Date Type Department Care Team (Late st Contact Info) Description 12/30/2020 Transcribed Document [facility] [place] [facility] [address] ProviderLucy MD [address] [place] [address] Social History Tobacco Use Types Packs/Day Years Used Date Smoking Tobacco: Never Assessed Sex and Gender Information Value Date Recorded Sex Assigned at Not on file Legal Sex Male 5:20 PM CDT Gender Identity Not on file Sexual Orientation Not on file documented as of this encounter Miscellaneous Notes * Cerner Conversion Note - Lucy ProviderMD - 12/30/2020 7:09 PM CDT [facility] [place] [address] [place] [address] Visit Date/Time: 12/30/2020 19:09:58 МАРИНА HALL The above patient was seen in the hospital today and needs to be excused from work/school until Return to Work/School Date: 01/05/2021 Electronically signed by Charlene [facility] Conversion Microsoft Exchange Architect Cerner at 08/31/2022 10:41 PM CDT documented in this encounter Plan of Treatment Not on file documented as of this encounter Visit Diagnoses Not on filedocumented in this encounter Care Teams Mechanical Estimator Relationship Specialty Start Date End Date Carl Patton MD [address] [place] [address] PCP - General Family Medicine 06/03/23 documented as of this encounter
--- OUTSIDE RECORDS SUMMARY | 2024-04-05 11:57 | XMS_ITS | Encounter Summary ---
Author Organization [employer] Address [address] [place] [address] Care Team Providers Care Straw Boss Name Role Phone Carl Patton MD Primary Care Provider [phone] Encounter Details Date Type Department Care Team (Late st Contact Info) Description 07/06/2021 Transcribed Document [facility] [place] [place] [facility] [place] [address] ProviderLucy MD [address] [place] [address] Social History Tobacco Use Types Packs/Day Years Used Date Smoking Tobacco: Never Assessed Sex and Gender Information Value Date Recorded Sex Assigned at Not on file Legal Sex Male 5:20 PM CDT Gender Identity Not on file Sexual Orientation Not on file documented as of this encounter Miscellaneous Notes * Cerner Conversion Note - Historical ProviderMD - 07/06/2021 12:08 PM LINING VAMPER Electronically signed by Charlene [facility] Conversion Spotter Driver Cerner at 08/31/2022 10:30 PM CDT documented in this encounter Plan of Treatment Not on file documented as of this encounter Visit Diagnoses Not on filedocumented in this encounter Care Teams Straw Boss Relationship Specialty Start Date End Date Carl Patton MD [address] [place] [address] PCP - General Family Medicine 06/03/23 documented as of this encounter
--- OUTSIDE RECORDS SUMMARY | 2024-04-05 11:57 | XMS_ITS | Encounter Summary ---
Author Organization [employer] Address [address] [facility] [place] [address] Care Team Providers Care Clin Application Specialist Name Role Phone Carl Patton MD Primary Care Provider [phone] Encounter Details Date Type Department Care Team (Latest Contact Info) Description 06/03/2023 Travel Social History Tobacco Use Types Packs/Day Years [...] place to sleep or slept in a prison (including now)? No 06/04/2023 Utilities Answer Date [...] harm? Never 06/03/2023 How often does anyone, inclu levi family and friends, scream or curse at [...] Do you speak a language other than [place]? No 06/03/2023 Do you want help with [...] on filedocumented in this encounter Care Teams Clin Application Specialist Relationship Specialty Start Date End Date Carl Patton MD [address] [place] [address] PCP - General Family Medicine 06/03/23 documented as of this encounter
--- OUTSIDE RECORDS SUMMARY | 2024-04-05 11:57 | XMS_ITS | Encounter Summary ---
Author Organization [employer] Address [address] [place] [address] Care Team Providers Care Course Instructor Name Role Phone Carl Patton MD Primary Care Provider [phone] Encounter Details Date Type Department Care Team (Late st Contact Info) Description 12/30/[address] [facility] [place] [facility] [place] [address] ProviderLucy MD [address] [place] [address] Social History Tobacco Use Types Packs/Day Years Used Date Smoking Tobacco: Never Assessed Sex and Gender Information Value Date Recorded Sex Assigned at Not on file Legal Sex Male 5:20 PM CDT Gender Identity Not on file Sexual Orientation Not on file documented as of this encounter Miscellaneous Notes * [employer]ner Conversion Note - Historical ProviderMD - 12/30/2020 11:00 AM CDT Advance Directive Entered On: 12/30/2020 12:50 EDT Performed On: 12/30/2020 11:00 EDT by JACK ALFARO Advance Directive Patient has Advance Directive *Q : Yes, Advance Directive on file Family/Rep Contact Information : Cat Joyce, Advance Directive Type : Living will Advance Directive Date : 12/30/2020 EDT Copy Advance Directive Verified/on Chart : Yes Date Hospital Obtained Advance Directive : 12/30/2020 EDT Advance Directive Comment : Assisted patient in completing and notarizing living will JACK ALFARO - 12/30/2020 12:48 EDT documented in this encounter Plan of Treatment Not on file documented as of this encounter Visit Diagnoses Not on filedocumented in this encounter Care Teams Course Instructor Relationship Specialty Start Date End Date Carl Patton MD [address] [place] [address] PCP - General Family Medicine 06/03/23 documented as of this encounter
--- OUTSIDE RECORDS SUMMARY | 2024-04-05 11:57 | XMS_ITS | Encounter Summary ---
Author Organization [employer] Address [facility] [address] Care Team Providers Care Fish Farmer Name Role Phone Carl Patton MD Primary Care Provider [phone] Encounter Details Date Type Department Care Team (Late st Contact Info) Description 12/30/2020 Transcribed Document [facility] [place] [facility] [place] [address] ProviderLucy MD [address] [place] [address] Social History Tobacco Use Types Packs/Day Years Used Date Smoking Tobacco: Never Assessed Sex and Gender Information Value Date Recorded Sex Assigned at Not on file Legal Sex Male 5:20 PM CDT Gender Identity Not on file Sexual Orientation Not on file documented as of this encounter Miscellaneous Notes * Cerner Conversion Note - Lucy ProviderMD - 12/30/2020 9:06 AM CDT Pre Procedure Adult Entered On: 12/30/2020 9:12 EDT Performed On: 12/30/2020 9:06 EDT by COLLIN AVERY RN Height and Weight, Clinical Dosing Height Source : Measured Height Entry Format : [place] Height, Feet : 5 ft(Converted to: 152 cm, 60 Inch) Height, Inches : 8 Inch(Converted to: 0 ft 8 Inch, 20.32 cm) Clinical Height : 172.72 cm Weight Source : Standing scale Weight Entry Format : [place] Clinical Dosing Weight : 75 kg Weight, Pounds : 165 lb Weight, Ounces : 0 oz Body Surface Area (BSA) : 1.89 m2 Body Mass Index : 25.1 kg/m2 (HI) [place] Body Weight : 67 kg COLLIN AVERY RN - 12/30/2020 9:06 EDT Health Histories Smoking Status : 10 or more cigarettes (1/2 pack or more)/day in last 30 days Smokeless Tobacco Status : Never Desires Tobacco Cessation Medication : Yes COLLIN AVERY RN - 12/30/2020 9:06 EDT Social History (As Of: 12/30/2020 09:12:55 EDT) Tobacco: Use in Last 12 Months: Cigarettes. Smoking Status Current every day smoker. Years of Use: 38. Packs/Tins Daily: 1. Used Tobacco, but Quit No. (Last Updated: 09/05/2014 07:35:58 EDT by NEERAJ HAYWARD RN) Use in Last 12 Months: Cigarettes. Smoking Status Current every day smoker. Years of Use: 30. Packs/Tins Daily: 1. Used Tobacco, but Quit No. Second Hand Smoke Exposure: No. Tobacco Use/Smoking within Last 30 Days Yes. (Last Updated: 08/15/2015 02:03:46 EDT by Zahra Low RN) 10 or more cigarettes (1/2 pack or more)/day in last 30 days Smoking Status. Years of Use: 45. Packs/Tins Daily: 1. (Last Updated: 12/30/2020 09:07:35 EDT by COLLIN AVERY RN) Alcohol: Alcohol Use History Yes. Date/Time of Last Drink: one - three per week. (Last Updated: 09/05/2014 07:36:20 EDT by NEERAJ HAYWARD RN) Alcohol Use History Yes. Days/Week: 1. # Drinks/Day: 0. Total Drinks/Week: 0. Date/Time of Last Drink: May drink one case of beer a year. Use in Last 12 Months: Yes. Alcohol Use Frequency Not used in over 6 months. (Last Updated: 08/15/2015 02:03:46 EDT by Zahra Low RN) Substance Abuse: Drug Use Hx: No. Use in Last 12 Months: No. (Last Updated: 09/05/2014 07:36:29 EDT by NEERAJ HAYWARD, FROYLAN) Nutrition/Health: Regular, Wants to lose weight: No. (Last Updated: 08/15/2015 02:03:46 EDT by Zahra Low RN) Exercise: Exercise duration: 15. Exercise frequency: Daily. Exercise type: Walking. (Last Updated: 08/15/2015 02:03:46 EDT by Zahra Low RN) Home/Environment: Lives with Significant other. Living situation: Home/Independent. (Last Updated: 08/14/2015 11:46:08 EDT by DAVE AMBROSIO, FROYLAN) Lives with Significant other. Living situation: Home/Independent. Alcohol abuse in household: No. Substance abuse in household: No. Smoker in household: Yes. Injuries/Abuse/Neglect in household: No. Feels unsafe at home: No. Safe place to go: Yes. Agency(s)/Others notified: No. TV/Computer concerns: No. (Last Updated: 08/15/2015 02:03:46 EDT by Zahra Low RN) Employment/School: Employed (Last Updated: 08/14/2015 11:45:59 EDT by DAVE AMBROSIO RN) Employed, Operates hazardous equipment: No. (Last Updated: 08/15/2015 02:03:46 EDT by Zahra Low RN) Infectious Disease History Has the patient ever been tested for COVID-19? : Yes, Patient stated results Negative Date of COVID-19 test known? : Yes Date of COVID-19 Test : 12/26/2020 EDT Does patient have symptoms of COVID-19? : No COVID19 Screening : No Experiencing Infectious Disease Symptoms : No symptoms Physical contact outside [place] in the last 30 days : No Infectious Disease History : Chicken pox/Shingles, Influenza, Measles, Mumps, Scarlet fever Tuberculosis Symptoms : Fatigue COLLIN AVERY RN - 12/30/2020 9:06 EDT COVID19 PreProcedure Screening Is this an Emergent or Add on Procedure? : No Date PreProcedure COVID-19 test known? : Yes Date of PreProcedure COVID-19 : 12/26/2020 EDT Has patient been isolated since the test : Yes Exposed to COVID19 symptoms since test? : No COLLIN AVERY RN - 12/30/2020 9:06 EDT Anesthesia/Transfusion History Family History of Anesthesia Reaction : No prior transfusion(s) Blood Transfusion Acceptable to Patient : Yes Transfusion History : Prior anesthesia without reaction Family History of Anesthesia Reaction : None COLLIN AVERY RN - 12/30/2020 9:06 EDT Functional Assessment Living Situation : Home Patient Lives With : Spouse Current Home Treatments : None COLLIN AVERY RN - 12/30/2020 9:06 EDT [place] Suicide Severity Rating Scale (C-SSRS) CSSRS Past Month Wish to be : No CSSRS Past Month Suicidal Thoughts : No CSSRS Lifetime Suicide Behavior : No Suicide Severity Rating Score : 0 Suicide Severity Rating : No Additional Care Required at this time COLLIN AVERY RN - 12/30/2020 9:06 EDT Psychosocial History Chronic/Terminal Illness w/Freq Visits : No Do You Have a History of the Following? : Patient denies history Currently in Unsafe Situation : No COLLIN AVERY RN - 12/30/2020 9:06 EDT Advance Directive Patient has Advance Directive *Q : No, patient requests information about Advance Directive COLLIN AVERY RN - 12/30/2020 9:52 EDT Teaching/Learning Assessment Barriers To Learning : None evident Individuals Taught : Patient, Significant other Readiness to Learn : Cooperative Readiness to Learn : Demonstration Learning Style Preferences Patient : Demonstration, Verbal explanation Learning Style Preferences Family : Demonstration, Verbal explanation COLLIN AVERY RN - 12/30/2020 9:06 EDT Education Topics, Periop Preadmission Perioperative Education [place] : Verbalizes understanding Infection Control : Verbalizes understanding IV's : Verbalizes understanding NPO Status/Directions : Verbalizes understanding Pain Management : Verbalizes understanding Postoperative Care Preparations : Verbalizes understanding Preprocedure Preparations : Verbalizes understanding Preprocedure Tests/Labs : Verbalizes understanding COLLIN AVERY RN - 12/30/2020 9:06 EDT General Info Legal Guardian : No Support Person/Patient Library Customer Service Clerk : No Want Family/Rep/Phys Notified of Admit : No Emergency Contact #1 : [place] Emergency Contact #1 Emergency Contact #1 Relationship : girlfriend Emergency Contact #2 : x Emergency Contact #2 Phone Number : x Emergency Contact #2 Relationship : x Primary Language : Occitan Preferred Communication Mode : Verbal Communication Barrier : None Arc Cutter Needed : COLLIN Rousseau RN - 12/30/2020 9:06 EDT Sleep Apnea Risk Assmt Hx of Obstructive Sleep Apnea Diagnosis : No Snore Loudly : Yes Tired, Fatigued, or Sleepy During Day : Yes Observed Stopping Breathing During Sleep : No Have/Are Being Treated for Hypertension : Yes BMI Greater Than 35 kg/m2 : No Age over 50 Years Old : Yes Neck Circumference Greater Than 40 cm : No Gender Male : Yes STOP-BANG Sleep Apnea Risk Level Score : 5 COLLIN AVERY RN - 12/30/2020 9:06 EDT Bean Scale Bean Sensory Perception : No impairment Bean Moisture : Rarely moist Bean Activity : Walks frequently Bean Mobility : No limitation Bean Nutrition : Adequate Bean Friction and Shear : No apparent problem Bean Score : 22 COLLIN AVERY RN - 12/30/2020 9:06 EDT Pain Assessment Pain Assessment : Initial assessment Pain Scale Used : 0-10 Scale COLLIN AVERY RN - 12/30/2020 9:06 EDT Fall Risk Scales ABCs Fall Injury Risk Identification : None PALACIO Hx Falls Immediate/Within 3 Months : No Palacio Secondary Diagnosis : No PALACIO Use of Ambulatory Aid : Bed rest/Nurse assist PALACIO IV Therapy or IV Access : Yes Palacio Gait/Transferring : Normal, bedrest, immobile Palacio Mental Status : Oriented to own ability Palacio Fall Risk Score : 20 PALACIO Fall Scale Risk Level : 0-24 Low Risk Joaquin Fall Interventions : Adequate lighting, Assistive devices within reach, Bed in low position, Call device within reach, Fall prevention handout/education per facility policy, Hourly comfort/safety rounds, Non-slip footwear, Personal items within reach, Reinforced to call for assistance before getting out of bed, Room free of clutter/spills, Upper side-rails up, Wheels locked, Wires/Cords secured COLLIN AVERY RN - 12/30/2020 9:06 EDT Valuables and Belongings Valuables and Belongings : Clothing Clothing : Common streetwear Clothing Disposition : Bedside COLLIN AVERY RN - 12/30/2020 9:06 EDT Pain Scale Intensity : 2 COLLIN AVERY RN - 12/30/2020 9:06 EDT Image 4 - Images currently included in the form version of this document have not been included in the text rendition version of the form. documented in this encounter Plan of Treatment Not on file documented as of this encounter Visit Diagnoses Not on filedocumented in this encounter Care Teams Fish Farmer Relationship Specialty Start Date End Date Carl Patton MD [address] [place] [address] PCP - General Family Medicine 06/03/23 documented as of this encounter
--- OUTSIDE RECORDS SUMMARY | 2024-04-05 11:57 | XMS_ITS | Encounter Summary ---
Author Organization [facility] [employer] Address [address] [place] [address] Care Team Providers Care Park Worker Name Role Phone Unavailable Primary Care Provider Unavailabl e Encounter Details Date Type Department Care Team (Late st Contact Info) Description 12/30/2020 Historic Encounter [address] [address] Provider, Jerilyn Historical Social History Tobacco Use Types Packs/Day Years [...] Procedure Name Priority Date/Time Associated Diagnosis Comments CHEM8+ POC Routine 12/30/2020 8:50 AM EDT documented in this encounter Results * (ABNORMAL) Chem8+ POC (12/30/2020 8:50 AM EDT) Sodium POC 140 138 - 146 mmol/L 12/30/2020 12:50 PM EDT [facility] Potassium POC 4.5 3.5 - 4.9 mmol/L 12/30/2020 12:50 PM EDT [facility] Chloride POC 103 98 - 109 mmol/L 12/30/2020 12:50 PM EDT [facility] CO2 POC 26.0 24.0 - 29.0 mmol/L 12/30/2020 12:50 PM EDT [facility] Anion Gap POC 16.0 10.0 - 20.0 mmol/L 12/30/2020 12:50 PM EDT [facility] Ca Ionized POC 1.26 1.12 - 1.32 mmol/L 12/30/2020 12:50 PM EDT [facility] Glucose POC 92 70 - 105 mg/dL 12/30/2020 12:50 PM EDT [facility] BUN POC 15 8 - 26 mg/dL 12/30/2020 12:50 PM EDT [facility] Creatinine POC 2.0(H) 0.6 - 1.3 mg/dL 12/30/2020 12:50 PM EDT [facility] eGFR 42(L) >=60 mL/min/1. 73m2 12/30/2020 8:05 PM EDT [facility] eGFR NonAfrican 35(L) >=60 mL/min/1. 73m2 12/30/2020 8:05 PM EDT [facility] Hemoglobin POC 13.6 12.0 - 17.0 Gram/dL 12/30/2020 12:50 PM EDT [facility] Hematocrit POC 40.0 38.0 - 51.0 % 12/30/2020 12:50 PM EDT [facility] Accounting Teacher [id number] 12/30/2020 12:50 PM EDT [facility] Device SN [id number] 12/30/2020 12:50 PM EDT [facility] Blood 12/30/2020 8:50 AM EDT 12/30/2020 8:05 PM EDT [facility] Historical Provider POINT OF CARE TEST MARC MURPHY Final Result [facility] [address] [phone] documented in this encounter Visit Diagnoses Not on filedocumented in this encounter
--- OUTSIDE RECORDS SUMMARY | 2024-04-05 11:57 | XMS_ITS | Encounter Summary ---
Author Organization [employer] Address [address] [place] [address] Care Team Providers Care Cemetery Vault Installer Name Role Phone Carl Patton MD Primary Care Provider [phone] Encounter Details Date Type Department Care Team (Late st Contact Info) Description 01/18/2021 Transcribed Document [facility] Cardiology [address] [place] [address] [address] [place] [address] [place] [address] [place] [address] [address] [place] [address] Social History Tobacco Use Types Packs/Day Years Used Date Smoking Tobacco: Never Assessed Sex and Gender Information Value Date Recorded Sex Assigned at Not on file Legal Sex Male 5:20 PM CDT Gender Identity Not on file Sexual Orientation Not on file documented as of this encounter Miscellaneous Notes * Cerner Conversion Note - Helena Romero MD - 01/18/2021 1:57 PM EDT DATE OF SERVICE: The patient underwent a stress test, the EKG of which shows at baseline normal sinus rhythm with no significant EKG changes suggestive of ischemia thereafter. The patient remained hemodynamically stable throughout the stress test. The patient's pharmacologic testing was rather unremarkable. NUCLEAR SCAN: There appears to be a within normal myocardial perfusion scan, normal wall motion and wall thickening appreciated. Ejection fraction by gated SPECT 63%. IMPRESSION: 1. Normal study. 2. Ejection fraction 63%. /[id number] Helena Romero MD NMF/AQ / NMF / MODL /[id number] documented in this encounter Plan of Treatment Not on file documented as of this encounter Visit Diagnoses Not on filedocumented in this encounter Care Teams Cemetery Vault Installer Relationship Specialty Start Date End Date Carl Patton MD [address] [place] [address] PCP - General Family Medicine 06/03/23 documented as of this encounter
--- OUTSIDE RECORDS SUMMARY | 2024-04-05 11:57 | XMS_ITS | Encounter Summary ---
Author Organization [facility] [employer] Address [address] [place] [address] Care Team Providers Care Venetian Blind Washer Name Role Phone Unavailable Primary Care Provider Unavailabl e Encounter Details Date Type Department Care Team (Late st Contact Info) Description 12/30/2020 Historic Encounter [address] [address] Provider, [facility] Historical Social History Tobacco Use Types Packs/Day [...] Procedure Name Priority Date/Time Associated Diagnosis Comments ACTIVATED CLOTTING TIME - HIGH RANGE Routine 12/30/2020 3:16 PM EDT documented in this encounter Results * (ABNORMAL) POC ACTIVATED CLOTTING TIME (12/30/2020 3:16 PM EDT) ACT POC 296(H) 74 - 137 Second(s) 12/30/2020 7:16 PM EDT [facility] Discovery Manager [id number] 12/30/2020 7:16 PM EDT [facility] Device SN [id number] 12/30/2020 7:16 PM EDT [facility] Blood 12/30/2020 3:16 PM EDT 12/30/2020 10:42 PM EDT Result [facility] Historical Provider POINT OF CARE TEST MARC MURPHY Final Result [facility] [address] [place] [address], [facility] [phone] documented in this encounter Visit Diagnoses Not on filedocumented in this encounter
--- OUTSIDE RECORDS SUMMARY | 2024-04-05 11:57 | XMS_ITS | Encounter Summary ---
Author Organization [employer] Address [address] [place] [address] Care Team Providers Care Senior Java Data Architect Name Role Phone Carl Patton MD Primary Care Provider [phone] Encounter Details Date Type Department Care Team (Late st Contact Info) Description 01/13/2021 Transcribed Document [facility] [place] [facility] [place] [address] ProviderLucy MD [address] [place] [id number] Social History Tobacco Use Types Packs/Day Years Used Date Smoking Tobacco: Never Assessed Sex and Gender Information Value Date Recorded Sex Assigned at Not on file Legal Sex Male 5:20 PM CDT Gender Identity Not on file Sexual Orientation Not on file documented as of this encounter Miscellaneous Notes * Cerner Conversion Note - Historical ProviderMD - 01/13/2021 8:55 AM CDT CR Chest 2 Vws Ordered: 01/12/2021 Auth (Verified) Reason for Exam: cp 01/12/2021 15:37 01/13/2021 08:55 (MAGGIE ARANGO) No further action required documented in this encounter Plan of Treatment Not on file documented as of this encounter Visit Diagnoses Not on filedocumented in this encounter Care Teams Senior Java Data Architect Relationship Specialty Start Date End Date Carl Patton MD [address] [place] [address] PCP - General Family Medicine 06/03/23 documented as of this encounter
--- OUTSIDE RECORDS SUMMARY | 2024-04-05 11:57 | XMS_ITS | Encounter Summary ---
Author Organization [email or web address] Address [address] [place] [address] Care Team Providers Care Overlock Hemmer Name Role Phone Carl Patton MD Primary Care Provider [phone] Encounter Details Date Type Department Care Team (Late st Contact Info) Description 12/30/2020 Transcribed Document [facility] [place] [facility] [place] [place], [place] [id number] ProviderLucy MD [address] [place] [address] Social History Tobacco Use Types Packs/Day Years Used Date Smoking Tobacco: Never Assessed Sex and Gender Information Value Date Recorded Sex Assigned at Not on file Legal Sex Male 5:20 PM CDT Gender Identity Not on file Sexual Orientation Not on file documented as of this encounter Miscellaneous Notes * Cerner Conversion Note - Lucy ProviderMD - 12/30/2020 7:13 PM CDT Nursing Discharge Summary Entered On: 12/30/2020 19:13 EDT Performed On: 12/30/2020 19:13 EDT by ANTONIO VICTOR, development educator Documentation Discharge Date/Time : 12/30/2020 19:20 EDT Patient Disposition, General : Discharge Discharge To : Home with ambulatory/outpatient follow-up Mode Of Departure, General Discharge : Private vehicle Accompanied By, Discharge : Spouse IV Discontinued : Yes Personal Belongings With Patient : Yes Pt's Own Supply of Medications Returned : No patient supply of medications to return Prescriptions Given to Patient : No Medications Given to Patient : No Discharge Instructions Reviewed With, Opportunity For Questions Given : Patient, Spouse Patient Education Completed : Yes Teaching Method : Explanation, Printed materials Teaching Evaluation : Verbalizes understanding DRANTONIO BLANCA RN - 12/30/2020 19:13 EDT Electronically signed by Charlene, [facility] Conversion Typing Pool Supervisor Cerner at 08/31/2022 10:42 PM CDT documented in this encounter Plan of Treatment Not on file documented as of this encounter Visit Diagnoses Not on filedocumented in this encounter Care Teams Overlock Hemmer Relationship Specialty Start Date End Date Carl Patton MD [address] [place] [address] PCP - General Family Medicine 06/03/23 documented as of this encounter
--- OUTSIDE RECORDS SUMMARY | 2024-04-05 11:57 | XMS_ITS | Encounter Summary ---
Author Organization [employer] Address [address] [place] [address] Care Team Providers Care Linux Programmer Name Role Phone Carl Patton MD Primary Care Provider [phone] Encounter Details Date Type Department Care Team (Late st Contact Info) Description 01/12/2021 Transcribed Document [facility] Family Medicine [facility] [place] [address] ProviderLucy MD [address] [place] [id number] Social History Tobacco Use Types Packs/Day Years Used Date Smoking Tobacco: Never Assessed Sex and Gender Information Value Date Recorded Sex Assigned at Not on file Legal Sex Male 5:20 PM CDT Gender Identity Not on file Sexual Orientation Not on file documented as of this encounter Miscellaneous Notes * Cerner Conversion Note - Lucy ProviderMD - 01/12/2021 11:39 AM CDT ED Triage Entered On: 01/12/2021 11:59 EDT Performed On: 01/12/2021 11:56 EDT by SONDRA BAEZA RN ED Triage Across the Room Chief Complaint : Pt presents with chest pain since , had stent placed on tuesday by Nick. CP woke pt up today. nitro taken at 0530am with relief. SOA on exertion Triage Date/Time : 01/12/2021 11:56 EDT SONDRA BAEZA RN - 01/12/2021 11:56 EDT DCP GENERIC CODE Tracking Acuity : 2 - Emergent Tracking Group : [facility] ED SONDRA BAEZA RN - 01/12/2021 11:56 EDT Mode of Arrival : Ambulatory Transported to ED by : Private vehicle To Room Via : Wheelchair Accompanied By : Unaccompanied ED Vital Signs : Document Height & Weight : Document ED Allergies : Document ED Reason for Visit : Document Tetanus Immunization : Less than 5 years SONDRA BAEZA RN - 01/12/2021 11:56 EDT Infectious Disease History Has the patient ever been tested for COVID-19? : Yes, Patient stated results Negative Date of COVID-19 test known? : No Does patient have symptoms of COVID-19? : No COVID19 Screening : No Experiencing Infectious Disease Symptoms : No symptoms Physical contact outside [place] in the last 30 days : No Infectious Disease History : Chicken pox/Shingles, Influenza, Measles, Mumps, Scarlet fever Tuberculosis Symptoms : None SONDRA BAEZA RN - 01/12/2021 11:56 EDT Vital Signs ED Temperature Source : Oral Temperature Mode : Fahrenheit Temperature, Fahrenheit : 98.0 Deg F ED Pain : Yes Clinical Temperature, C : 36.7 Deg C Oxygen Therapy Mode : Room air Peripheral Pulse Rate : 70 bpm Respiratory Rate : 20 Breaths/Min Systolic Blood Pressure : 160 mmHg (HI) Diastolic Blood Pressure : 77 mmHg Oxygen Saturation : 100 % SONDRA BAEZA RN - 01/12/2021 11:56 EDT Allergy (As Of: 01/12/2021 11:59:15 EDT) Allergies (Active) No Known Allergies Estimated Onset Date: Unspecified ; Created By: ARABELLA JACKSON RN; Reaction Status: Active ; Category: Drug ; Substance: No Known Allergies ; Type: Allergy ; Updated By: ARABELLA JACKSON RN; Reviewed Date: 01/12/2021 11:58 EDT Diagnosis Control ED (As Of: 01/12/2021 11:59:15 EDT) Problems(Active) Allergic rhinitis (SNOMED CT :606494456 ) Name of Problem: Allergic rhinitis ; Recorder: COLLIN AVERY RN; Confirmation: Confirmed ; Classification: Patient Stated ; Code: [id number] ; Contributor System: [employer] ; Last Updated: 12/30/2020 8:57 EDT ; Life Cycle Date: 12/30/2020 ; Life Cycle Status: Active ; Vocabulary: SNOMED CT At risk for sleep apnea (IMO :58076567 ) Name of Problem: At risk for sleep apnea ; Recorder: SYSTEM, SYSTEM; Confirmation: Confirmed ; Classification: Medical ; Code: [id number] ; Last Updated: 12/30/2020 9:12 EDT ; Life Cycle Date: 12/30/2020 ; Life Cycle Status: Active ; Vocabulary: IMO Chest pain (SNOMED CT :26933631 ) Name of Problem: Chest pain ; Recorder: COLLIN AVERY RN; Confirmation: Confirmed ; Classification: Patient Stated ; Code: 23616635 ; Contributor System: PowerChart ; Last Updated: 12/30/2020 9:00 EDT ; Life Cycle Date: 12/30/2020 ; Life Cycle Status: Active ; Vocabulary: SNOMED CT COPD, moderate (SNOMED CT :987709663 ) Name of Problem: COPD, moderate ; Recorder: NEERAJ HAYWARD RN; Confirmation: Confirmed ; Classification: Patient Stated ; Code: 931638592 ; Contributor System: PowerChart ; Last Updated: 09/05/2014 7:33 EDT ; Life Cycle Date: 09/05/2014 ; Life Cycle Status: Active ; Vocabulary: SNOMED CT Fatigue (SNOMED CT :611236561 ) Name of Problem: Fatigue ; Recorder: COLLIN AVERY RN; Confirmation: Confirmed ; Classification: Patient Stated ; Code: 624835016 ; Contributor System: PowerChart ; Last Updated: 12/30/2020 9:01 EDT ; Life Cycle Date: 12/30/2020 ; Life Cycle Status: Active ; Vocabulary: SNOMED CT GERD - Gastro-esophageal reflux disease (SNOMED CT :0536773695 ) Name of Problem: GERD - Gastro-esophageal reflux disease ; Recorder: COLLIN AVERY RN; Confirmation: Confirmed ; Classification: Patient Stated ; Code: 6061805148 ; Contributor System: PowerChart ; Last Updated: 12/30/2020 8:58 EDT ; Life Cycle Date: 12/30/2020 ; Life Cycle Status: Active ; Vocabulary: SNOMED CT HTN (hypertension) (SNOMED CT :7202146530 ) Name of Problem: HTN (hypertension) ; Recorder: FAUSTINO BARNETT MD; Confirmation: Confirmed ; Classification: Medical ; Code: 9691149318 ; Contributor System: PowerChart ; Last Updated: 08/27/2014 11:22 EDT ; Life Cycle Date: 08/27/2014 ; Life Cycle Status: Active ; Responsible Provider: FAUSTINO BARNETT MD; Vocabulary: SNOMED CT Shortness of breath (SNOMED CT :525911365 ) Name of Problem: Shortness of breath ; Recorder: COLLIN AVERY RN; Confirmation: Confirmed ; Classification: Patient Stated ; Code: 214818786 ; Contributor System: [employer] ; Last Updated: 12/30/2020 9:01 EDT ; Life Cycle Date: 12/30/2020 ; Life Cycle Status: Active ; Vocabulary: SNOMED CT Smoker (SNOMED CT :398938663 ) Name of Problem: Smoker ; Recorder: COLLIN AVERY RN; Confirmation: Confirmed ; Classification: Patient Stated ; Code: 055833070 ; Contributor System: [employer] ; Last Updated: 12/30/2020 8:57 EDT ; Life Cycle Date: 12/30/2020 ; Life Cycle Status: Active ; Vocabulary: SNOMED CT Diagnoses(Active) Chest pain Date: 01/12/2021 ; Diagnosis Type: Reason For Visit ; Confirmation: Complaint of ; Clinical Dx: Chest pain ; Classification: Medical ; Clinical Service: Non-Specified ; Code: PNED ; Probability: 0 ; Diagnosis Code: [id number] ED Height and Weight Height Source : Stated Height Entry Format : [place] Height, Feet : 5 ft(Converted to: 152 cm, 60 Inch) Height, Inches : 8 Inch(Converted to: 0 ft 8 Inch, 20.32 cm) Clinical Height : 172.72 cm Weight Source, ED : Critical estimated dosing weight Weight Entry Format : [place] Weight, Pounds : 165 lb Clinical Dosing Weight : 75 kg Body Surface Area (BSA) : 1.89 m2 Body Mass Index : 25.1 kg/m2 (HI) Center Body Weight (IBW) : 67.45 kg SONDRA BAEAZ RN - 01/12/2021 11:56 EDT Pain Assessment Pain Assessment : Initial assessment Pain Scale Used : 0-10 Scale Location : Chest Onset : Constant SONDRA BAEZA RN - 01/12/2021 11:56 EDT Pain Scale Intensity : 6 SONDRA BAEZA RN - 01/12/2021 11:56 EDT Image 4 - Images currently included in the form version of this document have not been included in the text rendition version of the form. Electronically signed by Neto Chang Conversion Certified Pediatric Nurse Practitioner [employer] at 08/31/2022 10:40 PM CDT documented in this encounter Plan of Treatment Not on file documented as of this encounter Visit Diagnoses Not on filedocumented in this encounter Care Teams Linux Programmer Relationship Specialty Start Date End Date Carl Patton MD [address] [place] [address] PCP - General Family Medicine 06/03/23 documented as of this encounter
--- OUTSIDE RECORDS SUMMARY | 2024-04-05 11:57 | XMS_ITS | Encounter Summary ---
Author Organization [facility] Address [address] [place] [address] Care Team Providers Care Wiring Technician Name Role Phone Noah Wagner MD Primary Care Provider [phone] Encounter Details Date Type Department Care Team (Latest Contact Info) Description 01/30/2024 Travel Social History Tobacco Use Types Packs/Day [...] on filedocumented in this encounter Care Teams Wiring Technician Relationship Specialty Start Date End Date Noah Wagner MD [address] [place] [address] PCP - General 09/26/20 documented as of this encounter
--- OUTSIDE RECORDS SUMMARY | 2024-04-05 11:57 | XMS_ITS | Clinical Summary ---
Author Organization [facility] Address [address] [place] [address] Care Team Providers Care Communications Superintendent Name Role Phone Noah Wagner MD Primary Care Provider [phone] Encounters Date Type Department Care Team Description 01/30/2024 10:30 AM EDT - 01/30/2024 11:59 PM EDT Hospital Encounter [facility] [address] [place] [address] Discharge Disposition: Home or Self Care 01/30/2024 Travel from Last 3 Months Social History Tobacco Use Types Packs/Day Years Used Date Smoking Tobacco: Never Assessed Sex and Gender Information Value Date Recorded Sex Assigned at Not on file Legal Sex Male 8:26 PM EDT Gender Identity Not on file Sexual Orientation Not on file Plan of Treatment Health Maintenance Due Date Last Done Comments [facility]-Depression Screening 1965 [facility]-HIV Screening 1965 [facility]-Hepatitis C Screening 1965 [facility]-/Child/Adol SDOH Screenings 1965 [facility]- SDOH Screenings 09/18/1981 [facility]-Adult SDOH Screenings 09/18/1981 CT Colonography 09/18/2008 Colonoscopy 09/18/2008 FIT-DNA 09/18/2008 FIT 09/18/2008 FOBT 09/18/2008 Sigmoidoscopy 09/18/2008 [facility]-Colorectal Cancer Screening 09/18/2008 [id number] Vaccine ( season) 2024 08/20/2020 [facility]-Influenza Vaccine (#1) 01/15/202402/18, 02/25/2021, 03/04/2020, Additional history exists [facility]-DTaP,Tdap,and Td Vaccines (5 - Td or Tdap) 12/12/2031 12/11/2021, 04/13/2021, 07/25/2019, Additional history exists [facility]-RSV Vaccine: 60+ Years or (1 - 1-dose 75+ series) 09/18/2038 [facility]-Zoster Vaccines Completed 11/01/2022, [facility]-HIB Vaccines Aged Out No longer e ligible based on patient's age to complete this topic [facility]-HPV Vaccines Aged Out No longer e ligible based on patient's age to complete this topic [facility]-Hepatitis A Vaccines Aged Out No longer eligible based on patient's age to complete this topic [facility]-IPV Vaccines Aged Out No longer e ligible based on patient's age to complete this topic [facility]-Pneumococcal Vaccine: Pediatrics (0 to 5 Years) and At-Risk Patients (6 to 64 Years) Aged Out No longer eligible based on patient's age to complete this topic [facility]-Rotavirus Vaccines Aged Out No lo nger eligible based on patient's age to complete this topic Procedures Procedure Name Priority Date/Time Associated Diagnosis Comments VAS US MESENTERIC ARTERY DUPLEX Routine 01/30/2024 11:07 AM EDT Weight loss from Last 3 Months Results * VAS US Mesenteric Artery Duplex [...] Jair Smith MD on 01/31/2024 4:03 PM [facility] [place] CV VASCULAR PROCEDURES Sharyn bhakta Result from Last 3 Months Insurance [employer] Care Teams Communications Superintendent Relationship Specialty Start Date End Date Noah Wagner MD [address] [place] [address] PCP - General 09/26/20
--- OUTSIDE RECORDS SUMMARY | 2024-04-05 11:57 | XMS_ITS | Encounter Summary ---
Author Organization [employer] Address [address] [place] [id number] Care Team Providers Care Flight Control Specialist Name Role Phone Stanislaw Martinez MD Primary Care Provider [phone] Encounter Details Date Type Department Care Team (Late st Contact Info) Description 12/30/2020 Transcribed Document [facility] [place] [address] ProviderLucy MD [address] [place] [address] [id number] Social History Tobacco Use Types Packs/Day Years Used Date Smoking Tobacco: Never Assessed Sex and Gender Information Value Date Recorded Sex Assigned at Not on file Legal Sex Male 5:20 PM CDT Gender Identity Not on file Sexual Orientation Not on file documented as of this encounter Miscellaneous Notes * Cerner Conversion Note - Lucy Scott MD - 12/30/2020 7:07 PM CDT [facility] [place] [address] МАРИНА HALL :1965 Visit Time:12/30/2020 Your Visit Summary Your Care Team Admitting Physician - DEBBY ROMERO MD-CAR Attending Physician - DEBBY ROMERO MD-CAR Primary Care Physician - STANISLAW MARTINEZ MD-[facility] Referring Physician - DEBBY ROMERO MD-CAR Your Diagnosis Abnormal result of other cardiovascular function study, Abnormal result of other cardiovascular function study These Are Your Goals No qualifying data available. Discharge Vitals Heart Rate (Monitored) 62 Respiratory Rate 16 Blood Pressure 153/69 What to do next Instructions From Your Care Team NO driving 24 hours. Rest/relax today. Follow radial care instruction sheet. Watch for signs of bleeding/infection. May shower tomorrow. No tub bathing/hot tubs or swimming 5-7 or until site heals. Make appt to see Dr. Romero 2-4 weeks. Discharge Follow Up Instructions: Follow up with Anna Ambriz APRN in 2-4weeks Follow-Up Appointments Follow Up with DEBBY ROMERO MD-CAR When Within 2 to 4 weeks Comments Call for follow up appointment Where: [address] [facility] [address] [place] [id number]- Medications What How Much When Instructions Next Dose acetaminophen (Tylenol) 1,000 Milligram(s) Oral Every 6 Hours as needed for Breakthrough Pain aspirin (aspirin 81 mg oral capsule) Oral Every Day cetirizine (cetirizine 10 mg oral tablet) Oral Every Day cholecalciferol (Vitamin D3 2000 units oral tablet) Oral Every Day clopidogrel (Plavix 75 mg oral tablet) Oral Every Day docusate-senna (docusate-senna 50 mg-8.6 mg oral tablet) 2 Tablet(s) Oral Every Day esomeprazole (esomeprazole 20 mg oral delayed release tablet) Oral Every Morning famotidine (famotidine 20 mg oral tablet) Oral Every Day levocetirizine (Xyzal 5 mg oral tablet) 1 Tablet(s) Oral Every Evening lisinopril (lisinopril 10 mg oral tablet) 1 Tablet(s) Oral Every Day metoprolol (metoprolol succinate 50 mg oral capsule, extended release) Oral Every Day montelukast (montelukast 10 mg oral tablet) Oral Every Day Take your medications faithfully. Do NOT skip medication. Do NOT stop taking medications without the direction of a physician. Carry a list of your medications with you at all times, and take this medication list with you to your first follow up visit. Report any side effects. Avoid herbal remedies unless discussed with your physician. As part of your treatment plan, your physician may have prescribed a limited course of a controlled substance. This medication may be given to help people with moderate or severe pain or for other medical conditions, but there are risks involved with treatment. Common side effects may include nausea, constipation, drowsiness, sweating, itching, dry mouth, and rash. More serious side effects may include cognitive and motor impairment, like problems with thinking, concentrating, alertness, and movement (e.g. slowed reflexes), and driving and operating heavy machinery can be dangerous. It is important for you to talk to your physician if you have these side effects or questions. These controlled substances can produce physical dependence and be habit-forming if taken for an extended period of time, which means that the body has gotten used to them and may experience withdrawal symptoms if they are abruptly stopped. Withdrawal symptoms can include runny nose, sweating, goose bumps, diarrhea, abdominal cramping, rapid heartbeat, difficulty sleeping, and nervousness. Please dispose of unused and medications per your retail pharmacy guidance. Allergies No Known Allergies Immunizations This Visit No Immunizations Found Education Materials Coronary Artery Disease, Male Coronary artery disease (CAD) is a condition in which the arteries that lead to the heart (coronary arteries) become narrow or blocked. The narrowing or blockage can lead to decreased blood flow to the heart. Prolonged reduced blood flow can cause a heart attack (myocardial infarction or PA). This condition may also be called coronary heart disease. Because CAD is the leading cause of in men, it is important to understand what causes this condition and how it is treated. What are the causes? CAD is most often caused by atherosclerosis. This is the buildup of fat and cholesterol (plaque) on the inside of the arteries. Over time, the plaque may narrow or block the artery, reducing blood flow to the heart. Plaque can also become weak and break off within a coronary artery and cause a sudden blockage. Other less common causes of CAD include: ??? A blood clot or a piece of a blood clot or other substance that blocks the flow of blood in a coronary artery (embolism). ??? A tearing of the artery (spontaneous coronary artery dissection). ??? An enlargement of an artery (aneurysm). ??? Inflammation (vasculitis) in the artery wall. What increases the risk? The following factors may make you more likely to develop this condition: ??? Age. Men over age 45 are at a greater risk of CAD. ??? Family history of CAD. ??? Gender. Men often develop CAD earlier in life than women. ??? High blood pressure (hypertension). ??? Diabetes. ??? High cholesterol levels. ??? Tobacco use. ??? Excessive alcohol use. ??? Lack of exercise. ??? A diet high in saturated and trans fats, such as fried food and processed meat. Other possible risk factors include: ??? High stress levels. ??? Depression. ??? Obesity. ??? Sleep apnea. What are the signs or symptoms? Many people do not have any symptoms during the early stages of CAD. As the condition progresses, symptoms may include: ??? Chest pain (angina). The pain can: ? Feel like crushing or squeezing, or like a tightness, pressure, fullness, or heaviness in the chest. ? Last more than a few minutes or can stop and recur. The pain tends to get worse with exercise or stress and to fade with rest. ??? Pain in the arms, neck, jaw, ear, or back. ??? Unexplained heartburn or indigestion. ??? Shortness of breath. ??? Nausea or vomiting. ??? Sudden light-headedness. ??? Sudden cold sweats. ??? Fluttering or fast heartbeat (palpitations). How is this diagnosed? This condition is diagnosed based on: ??? Your family and medical history. ??? A physical exam. ??? Tests, including: ? A test to check the electrical signals in your heart (electrocardiogram). ? Exercise stress test. This looks for signs of blockage when the heart is stressed with exercise, such as running on a treadmill. ? Pharmacologic stress test. This test looks for signs of blockage when the heart is being stressed with a medicine. ? Blood tests. ? Coronary angiogram. This is a procedure to look at the coronary arteries to see if there is any blockage. During this test, a dye is injected into your arteries so they appear on an X-ray. ? Coronary artery CT scan. This CT scan helps detect calcium deposits in your coronary arteries. Calcium deposits are an indicator of CAD. ? A test that uses sound waves to take a picture of your heart (echocardiogram). ? Chest X-ray. How is this treated? This condition may be treated by: ??? Healthy lifestyle changes to reduce risk factors. ??? Medicines such as: ? Antiplatelet medicines and blood-thinning medicines, such as aspirin. These help to prevent blood clots. ? Nitroglycerin. ? Blood pressure medicines. ? Cholesterol-lowering medicine. ??? Coronary angioplasty and stenting. During this procedure, a thin, flexible tube is inserted through a blood vessel and into a blocked artery. A balloon or similar device on the end of the tube is inflated to open up the artery. In some cases, a small, mesh tube (stent) is inserted into the artery to keep it open. ??? Coronary artery bypass surgery. During this surgery, veins or arteries from other parts of the body are used to create a bypass around the blockage and allow blood to reach your heart. Follow these instructions at home: Medicines ??? Take qcjr-yyg-aucbary and prescription medicines only as told by your health care provider. ??? Do not take the following medicines unless your health care provider approves: ? NSAIDs, such as ibuprofen, naproxen, or celecoxib. ? Vitamin supplements that contain vitamin A, vitamin E, or both. Lifestyle ??? Follow an exercise program approved by your health care provider. Aim for 150 minutes of moderate exercise or 75 minutes of vigorous exercise each week. ??? Maintain a healthy weight or lose weight as approved by your health care provider. ??? Learn to manage stress or try to limit your stress. Ask your health care provider for suggestions if you need help. ??? Get screened for depression and seek treatment, if needed. ??? Do not use any products that contain nicotine or tobacco, such as cigarettes, e-cigarettes, and chewing tobacco. If you need help quitting, ask your health care provider. ??? Do not use illegal drugs. Eating and drinking ??? Follow a heart-healthy diet. A dietitian can help educate you about healthy food options and changes. In general, eat plenty of fruits and vegetables, lean meats, and whole grains. ??? Avoid foods high in: ? Sugar. ? Salt (sodium). ? Saturated fat, such as processed or fatty meat. ? Trans fat, such as fried foods. ??? Use healthy cooking methods such as roasting, grilling, broiling, baking, poaching, steaming, or stir-frying. ??? Do not drink alcohol if your health care provider tells you not to drink. ??? If you drink alcohol: ? Limit how much you have to 0???2 drinks per day. ? Be aware of how much alcohol is in your drink. In the [place] one drink equals one 12 oz bottle of beer (355 mL), one 5 oz glass of wine (148 mL), or one 1?? oz glass of hard liquor (44 mL). General instructions ??? Manage any other health conditions, such as hypertension and diabetes. These conditions affect your heart. ??? Your health care provider may ask you to monitor your blood pressure. Ideally, your blood pressure should be below 130/80. ??? Keep all follow-up visits as told by your health care provider. This is important. Get help right away if: ??? You have pain in your chest, neck, ear, arm, jaw, stomach, or back that: ? Lasts more than a few minutes. ? Is recurring. ? Is not relieved by taking medicine under your tongue (sublingual nitroglycerin). ??? You have profuse sweating without cause. ??? You have unexplained: ? Heartburn or indigestion. ? Shortness of breath or difficulty breathing. ? Fluttering or fast heartbeat (palpitations). ? Nausea or vomiting. ? Fatigue. ? Feelings of nervousness or anxiety. ? Weakness. ? Diarrhea. ??? You have sudden light-headedness or dizziness. ??? You faint. ??? You feel like hurting yourself or think about taking your own life. These symptoms may represent a serious problem that is an emergency. Do not wait to see if the symptoms will go away. Get medical help right away. Call your local emergency services (911 in the [place] Do not drive yourself to the hospital. Summary ??? Coronary artery disease (CAD) is a condition in which the arteries that lead to the heart (coronary arteries) become narrow or blocked. The narrowing or blockage can lead to a heart attack. ??? Many people do not have any symptoms during the early stages of CAD. ??? CAD can be treated with lifestyle changes, medicines, surgery, or a combination of these treatments. This information is not intended to replace advice given to you by your health care provider. Make sure you discuss any questions you have with your health care provider. Document Revised: 01/19/2019 Document Reviewed: 01/09/2019 [employer] Patient Education ?? 2020 [employer]. What you need to know about coronavirus disease 2019 (COVID-19) Missing Image - the embedded image is not supported https://www.cdc.gov/coronavirus/2019-ncov/ HYPERLINK https://www.cdc.gov/coronavirus/2019-ncov/cases-in-us.html cases-in-us.html. How does COVID-19 spread? The virus that causes COVID-19 probably emerged from an animal source, but now it seems to be spreading from person to person. It???s important to note that xciwtb-zj-iwddpo spread can happen on a continuum. Some diseases are highly contagious (like measles), while other diseases are less so. At this time, it???s unclear how easily or sustainably the virus that causes COVID-19 is spreading between people. Learn what is known about the spread of newly emerged coronaviruses at HYPERLINK https://www.cdc.gov/coronavirus/2019-ncov/about/transmission.html https://www.cdc.gov/coronavirus/ 2019-ncov/about/ HYPERLINK https://www.cdc.gov/coronavirus/2019-ncov/about/transmission.html transmission.html. What are the symptoms of COVID-19? Patients with COVID-19 have had mild to severe respiratory illness with symptoms of fever cough shortness of breath What are severe complications from this virus? Many patients have pneumonia in both lungs. How can I help protect myself? The best way to prevent infection is to avoid being exposed to the virus that causes COVID-19. There are simple everyday preventive actions to help prevent the spread of respiratory viruses. These include Avoid close contact with people who are sick. Avoid touching your eyes, nose, and mouth with unwashed hands. Wash your hands often with soap and water for at least 20 seconds. Use an alcohol-based hand restaurant management internship that contains at least 60% alcohol if soap and water are not available. If you are sick, to keep from spreading respiratory illness to others, you should Stay home when you are sick. Cover your cough or sneeze with a tissue, then throw the tissue in the trash. Clean and disinfect frequently touched objects and surfaces. What should I do if I recently traveled outside of the [place]? If you were outside the [place] within the past 14 days and feel sick with fever, cough, or difficulty breathing, you should seek medical care. Call the office of your health care provider before you go, and tell them about your travel and your symptoms. They will give you instructions on how to get care without exposing other people to your illness. While sick, avoid contact with people, don???t go out and delay any travel to reduce the possibility of spreading illness to others. Is there a vaccine? There is currently no vaccine to protect against COVID-19. The best way to prevent infection is to avoid being exposed to the virus that causes COVID-19. Is there a treatment? There is no specific antiviral treatment for COVID-19. People with COVID-19 can seek medical care to help relieve symptoms. For more information: HYPERLINK http://www.cdc.gov/COVID19 www.cdc.gov/COVID19 DISCLAIMER: COVID-19 information is rapidly changing and documents will be updated accordingly. July 20, 2019 Moderate Conscious Sedation, Adult, Care After These instructions provide you with information about caring for yourself after your procedure. Your health care provider may also give you more specific instructions. Your treatment has been planned according to current medical practices, but problems sometimes occur. Call your health care provider if you have any problems or questions after your procedure. What can I expect after the procedure? After your procedure, it is common: ??? To feel sleepy for several hours. ??? To feel clumsy and have poor balance for several hours. ??? To have poor judgment for several hours. ??? To vomit if you eat too soon. Follow these instructions at home: For at least 24 hours after the procedure: ??? Do not: ? Participate in activities where you could fall or become injured. ? Drive. ? Use heavy machinery. ? Drink alcohol. ? Take sleeping pills or medicines that cause drowsiness. ? Make important decisions or sign legal documents. ? Take care of children on your own. ??? Rest. Eating and drinking ??? Follow the diet recommended by your health care provider. ??? If you vomit: ? Drink water, juice, or soup when you can drink without vomiting. ? Make sure you have little or no nausea before eating solid foods. General instructions ??? Have a responsible adult stay with you until you are awake and alert. ??? Take wtze-crd-kaxmtut and prescription medicines only as told by your health care provider. ??? If you smoke, do not smoke without supervision. ??? Keep all follow-up visits as told by your health care provider. This is important. Contact a health care provider if: ??? You keep feeling nauseous or you keep vomiting. ??? You feel light-headed. ??? You develop a rash. ??? You have a fever. Get help right away if: ??? You have trouble breathing. This information is not intended to replace advice given to you by your health care provider. Make sure you discuss any questions you have with your health care provider. Document Revised: 04/14/2018 Document Reviewed: 08/21/2016 [employer] Patient Education ?? 2020 [employer]. Transradial Angiogram A transradial angiogram is an imaging test that is used to examine blood vessels. For this test, a long, thin tube (catheter) is inserted into an artery in the wrist (radial artery) and moved into the blood vessels that need to be checked. A dye (contrast dye) is injected into the blood vessels, and then X-rays are taken. The contrast dye makes the blood vessels show up better on X-rays to help your health care provider see any problems. You may have this test to check for problems that can affect blood flow through the blood vessels, such as: ??? A blocked or narrowed blood vessel. ??? A blood clot. ??? Abnormal connections between blood vessels. Tell a health care provider about: ??? Any allergies you have. ??? All medicines you are taking, including vitamins, herbs, eye drops, creams, and vvje-upg-wasfywk medicines. ??? Any problems you or family members have had with anesthetic medicines. ??? Any blood disorders you have. ??? Any surgeries you have had. ??? Any medical conditions you have or have had. ??? Whether you are or may be . What are the risks? Generally, this is a safe procedure. However, problems may occur, including: ??? Infection. ??? Bleeding. ??? Allergic reactions to medicines or dyes. ??? Damage to other structures or organs, such as the blood vessels, lungs, or heart. ??? Blood clots. ??? Blood flow through the radial artery stopping or slowing down. This is rare. What happens before the procedure? Medicines Ask your health care provider about: ??? Changing or stopping your regular medicines. This is especially important if you are taking diabetes medicines or blood thinners. ??? Taking medicines such as aspirin and ibuprofen. These medicines can thin your blood. Do not take these medicines unless your health care provider tells you to take them. ??? Taking nojm-sek-nosobkb medicines, vitamins, herbs, and supplements. Exams and tests ??? You may have a physical exam. ??? You may have tests, including blood tests and X-rays. General instructions ??? Follow instructions from your health care provider about eating or drinking restrictions. ??? Do not use any products that contain nicotine or tobacco for at least 24 hours before the procedure. These products include cigarettes, e-cigarettes, and chewing tobacco. If you need help quitting, ask your health care provider. ??? Ask your health care provider: ? How your procedure site will be marked. ? What steps will be taken to help prevent infection. These may include: ? Washing skin with a germ-killing soap. ? Taking antibiotic medicine. ??? Plan to have someone take you home from the hospital or clinic. ??? If you will be going home right after the procedure, plan to have someone with you for 24 hours. What happens during the procedure? An IV will be inserted into one of your veins. ??? You may be given the following: ? A medicine to help you relax (sedative). ? A medicine that is injected into your wrist to numb the area near the radial artery (local anesthetic). ??? A needle will be inserted into your radial artery in your wrist. ??? A catheter will be inserted into your radial artery. The needle will help guide the catheter into your radial artery and will then be removed. ??? The catheter will be moved through your body to the desired area. An X-ray machine (fluoroscope) will help your health care provider place the catheter in the correct place in your body. ??? Contrast dye will be injected into the catheter and will travel to the blood vessels that are being examined. ??? X-ray images will be taken of how the dye flows through your blood vessels. While the images are being taken, you may be given instructions on breathing, swallowing, moving, or talking. ??? The catheter will be removed from your body. ??? A pressure (compression) wrap will be applied to your wrist to stop bleeding. The procedure may vary among health care providers and hospitals. What happens after the procedure? You will need to keep your wrist still for as long as told by your health care provider. ??? The pressure applied to your wrist will be gradually decreased until the compression wrap is removed. ??? Your blood pressure, heart rate, breathing rate, and blood oxygen level will be monitored until you leave the hospital or clinic. ??? You may continue to get fluids and medicines through an IV. ??? You may have soreness and bruising in your wrist. This is normal. This should get better within about 1 week. ??? Do not drive for 24 hours if you were given a sedative during your procedure. ??? You may have to wear compression stockings. These stockings help to prevent blood clots and lessen swelling in your legs. Summary ??? A transradial angiogram is an imaging test that is used to examine blood vessels and to check for problems that can affect blood flow. ??? For this test, a catheter is inserted into an artery in the wrist (radial artery) and moved into the blood vessels being examined. A dye (contrast dye) is injected into the blood vessels, and then X-rays are taken. ??? Before the procedure, follow instructions from your health care provider about changing or stopping your medicines. ??? Before the procedure, follow instructions from your health care provider about eating or drinking restrictions. ??? If you will be going home right after the procedure, plan to have someone take you home and stay with you for 24 hours. This information is not intended to replace advice given to you by your health care provider. Make sure you discuss any questions you have with your health care provider. Document Revised: 03/26/2019 Document Reviewed: 03/26/2019 [employer] Patient Education ?? 2020 [employer] Radial Site Care This sheet gives you information about how to care for yourself after your procedure. Your health care provider may also give you more specific instructions. If you have problems or questions, contact your health care provider. What can I expect after the procedure? After the procedure, it is common to have: ??? Bruising and tenderness at the catheter insertion area. Follow these instructions at home: Medicines ??? Take ujfr-ueg-ygidbxq and prescription medicines only as told by your health care provider. Insertion site care ??? Follow instructions from your health care provider about how to take care of your insertion site. Make sure you: ? Wash your hands with soap and water before you change your bandage (dressing). If soap and water are not available, use hand restaurant management internship. ? Change your dressing as told by your health care provider. ? Leave stitches (sutures), skin glue, or adhesive strips in place. These skin closures may need to stay in place for 2 weeks or longer. If adhesive strip edges start to loosen and curl up, you may trim the loose edges. Do not remove adhesive strips completely unless your health care provider tells you to do that. ??? Check your insertion site every day for signs of infection. Check for: ? Redness, swelling, or pain. ? Fluid or blood. ? Pus or a bad smell. ? Warmth. ??? Do not take baths, swim, or use a hot tub until your health care provider approves. ??? You may shower 24???48 hours after the procedure, or as directed by your health care provider. ? Remove the dressing and gently wash the site with plain soap and water. ? Pat the area dry with a clean towel. ? Do not rub the site. That could cause bleeding. ??? Do not apply powder or lotion to the site. Activity ??? For 24 hours after the procedure, or as directed by your health care provider: ? Do not flex or bend the affected arm. ? Do not push or pull heavy objects with the affected arm. ? Do not drive yourself home from the hospital or clinic. You may drive 24 hours after the procedure unless your health care provider tells you not to. ? Do not operate machinery or power tools. ??? Do not lift anything that is heavier than 10 lb (4.5 kg), or the limit that you are told, until your health care provider says that it is safe. ??? Ask your health care provider when it is okay to: ? Return to work or school. ? Resume usual physical activities or sports. ? Resume sexual activity. General instructions ??? If the catheter site starts to bleed, raise your arm and put firm pressure on the site. If the bleeding does not stop, get help right away. This is a medical emergency. ??? If you went home on the same day as your procedure, a responsible adult should be with you for the first 24 hours after you arrive home. ??? Keep all follow-up visits as told by your health care provider. This is important. Contact a health care provider if: ??? You have a fever. ??? You have redness, swelling, or yellow drainage around your insertion site. Get help right away if: ??? You have unusual pain at the radial site. ??? The catheter insertion area swells very fast. ??? The insertion area is bleeding, and the bleeding does not stop when you hold steady pressure on the area. ??? Your arm or hand becomes pale, cool, tingly, or numb. These symptoms may represent a serious problem that is an emergency. Do not wait to see if the symptoms will go away. Get medical help right away. Call your local emergency services (911 in the [place] Do not drive yourself to the hospital. Summary ??? After the procedure, it is common to have bruising and tenderness at the site. ??? Follow instructions from your health care provider about how to take care of your radial site wound. Check the wound every day for signs of infection. ??? Do not lift anything that is heavier than 10 lb (4.5 kg), or the limit that you are told, until your health care provider says that it is safe. This information is not intended to replace advice given to you by your health care provider. Make sure you discuss any questions you have with your health care provider. Document Revised: 06/07/2018 Document Reviewed: 06/07/2018 Elsevier Patient Education ?? 2020 [employer] Emergency Awareness and Preventative Care STROKE is an EMERGENCY Every Minute Counts Act FAST and Check for these signs: FACE Does the face look uneven? ARM Does one arm drift down? SPEECH Does their speech sound strange? TIME Call 9-1-1 at any sign of stroke Stroke Risk Factors Atrial Fibrillation (irregular heartbeat) Diabetes Family history of stroke Heart Disease Heavy alcohol use High Blood Pressure High Cholesterol Physical inactivity and obesity Smoking Cigarette Smoking The facts are clear, cigarette smoking will shorten your life. Smoking can cause many illnesses along the way. As a healthcare provider, we recommend that you stop smoking. Assistance with quitting is available by contacting 5-848-LOIYNOW. This is a free resource providing counseling, support, and referral. Or you may contact your personal physician. [place] Suicide Prevention Lifeline: The National Suicide Prevention Lifeline is a national network of local crisis centers that provides free and confidential emotional support to people in suicidal crisis or emotional distress 24 hours a day, 7 days a week. Don't Wait! Stop a Heart Attack Before it Starts What is a heart attack? A heart attack is damage or to a part of the heart from severely decreased or lack of blood flow to the heart. Over time, arteries can become narrow from the buildup of fat and cholesterol, which is called plaque. The plaque can rupture causing a blood clot to form. When the blood clot forms, the artery can become severely narrowed or completely blocked, causing a heart attack. Heart attack is the leading cause of in the [place]. 85% of muscle damage occurs within the first 2 hours. Delay in the recognition of heart attack symptoms increases the chances of . Know the early symptoms of a heart attack: Nausea Feeling of fullness in chest Jaw Pain Pain that travels down one or both arms Fatigue/being tired Anxiety Back Pain Chest pressure, squeezing, or discomfort Shortness of breath Sweating, or a cold sweat Feeling of impending doom There are unusual signs of a heart attack, too! Women, the elderly, and diabetics may present with atypical symptoms: Fainting/dizziness Weakness Confusion Risk Factors for a Heart Attack Some heart disease risk factors, such as age and family history, cannot be changed. Others, like smoking and lack of exercise, can be changed. Smoking High Cholesterol High Blood Pressure Family History Obesity Age Gender (Males are at higher risk) Lack of Exercise Diabetes Diet Stress Excessive Alcohol Intake If you or someone you know is experiencing the signs and symptoms of a heart attack, DON???T DELAY. Call immediately and seek help. If someone collapses, perform CPR! Do not attempt to drive if you are having symptoms of heart attack. Hands-Only CPR Why Hands-Only CPR? Hands-Only CPR has been shown to be as effective as conventional CPR for cardiac arrests that occur outside of a hospital. Survival depends on immediately receiving CPR from someone nearby. How do you perform Hands-Only CPR? There are two easy steps: Call 9-1-1 if you see a teen or adult collapse Push hard and fast in the center of the chest at a beat of 100 beats per minute. Save a life! 4 WAYS TO GET AHEAD OF SEPSIS SEPSIS is a MEDICAL EMERGENCY. Time matters! Infections put you and your family at risk for a life-threatening condition called sepsis. Sepsis is the body's extreme response to an infection. It is life-threatening, and without timely treatment, sepsis can rapidly lead to tissue damage, organ failure, and . Sepsis happens when an infection you already have-in your skin, lungs, urinary tract or somewhere else-triggers a chain reaction throughout your body. 1 PREVENT INFECTIONS Take good care of chronic conditions. Talk to your doctor about getting the recommended vaccines. 2 PRACTICE GOOD HYGIENE Wash your hands frequently. Keep cuts or open sores clean and covered until they are healed. 3 KNOW THE SYMPTOMS Confusion or disorientation Shortness of breath High heart rate Fever, shivering, or feeling very cold Extreme pain or discomfort Clammy or sweaty skin 4 ACT FAST Get medical care IMMEDIATELY if you suspect sepsis or if you have an infection that is not getting better or is getting worse. To learn more about sepsis and how to prevent infections, visit www.cdc.gov/sepsis. Test Results Laboratory or Other Results This Visit (last charted value for your 12/30/2020 visit) Hematology 12/30/2020 8:50 AM Hemoglobin POC: 13.6 Gram/dL -- Normal range between ( 12.0 and 17.0 ) Hematocrit POC: 40.0 % -- Normal range between ( 38.0 and 51.0 ) 12/30/2020 8:44 AM Platelet Count: 432 K/uL -- Normal range between ( 163 and 369 ) General Chemistry 12/30/2020 8:50 AM eGFR : 42 mL/min/1.73m2 eGFR NonAfrican: 35 mL/min/1.73m2 Sodium POC: 140 mmol/L -- Normal range between ( 138 and 146 ) Ca Ioniz POC: 1.26 mmol/L -- Normal range between ( 1.12 and 1.32 ) Potassium POC: 4.5 mmol/L -- Normal range between ( 3.5 and 4.9 ) Creatinine POC: 2.0 mg/dL -- Normal range between ( 0.6 and 1.3 ) BUN POC: 15 mg/dL -- Normal range between ( 8 and 26 ) CO2 POC: 26.0 mmol/L -- Normal range between ( 24.0 and 29.0 ) Chloride POC: 103 mmol/L -- Normal range between ( 98 and 109 ) Glucose POC: 92 mg/dL -- Normal range between ( 70 and 105 ) Anion Gap POC: 16.0 mmol/L -- Normal range between ( 10.0 and 20.0 ) Coagulation 12/30/2020 3:16 PM ACT POC: 296 Second(s) -- Normal range between ( 74 and 137 ) Patient Name:МАРИНА HALL I have received and understand this information and was given the opportunity to ask questions. Patient/Family Nurse Name: Patient/Family Nurse Signature: Relationship to Patient: Clinician/Hospital Family Nurse Signature: Date: Electronically signed by Interface, [facility] Conversion Geophysics Scientist Cerner at 08/31/2022 10:54 PM CDT documented in this encounter Plan of Treatment Not on file documented as of this encounter Visit Diagnoses Not on filedocumented in this encounter Care Teams Flight Control Specialist Relationship Specialty Start Date End Date Stanislaw Martinez MD [address] [place] [address] PCP - General Family Medicine 06/03/23 documented as of this encounter
--- OUTSIDE RECORDS SUMMARY | 2024-04-05 11:57 | XMS_ITS | Encounter Summary ---
Author Organization [employer] Address [address] [place] [id number] Care Team Providers Care Nondestructive Tester Name Role Phone Carl Patton MD Primary Care Provider [phone] Encounter Details Date Type Department Care Team (Late st Contact Info) Description 12/30/2020 Transcribed Document [facility] [place] [address] ProviderLucy MD [address] [place] [id number] Social History Tobacco Use Types Packs/Day Years Used Date Smoking Tobacco: Never Assessed Sex and Gender Information Value Date Recorded Sex Assigned at Not on file Legal Sex Male 5:20 PM CDT Gender Identity Not on file Sexual Orientation Not on file documented as of this encounter Miscellaneous Notes * Cerner Conversion Note - Lucy Scott MD - 12/30/2020 7:05 PM CDT Stroke/Warfarin Instructions Entered On: 12/30/2020 19:06 EDT Performed On: 12/30/2020 19:05 EDT by ANTONIO VICTOR, RN Stroke/Warfarin Instructions Stroke/TIA Discharge Ins : N/A Warfarin Discharge Ins : N/A ANTONIO VICTOR RN - 12/30/2020 19:05 EDT documented in this encounter Plan of Treatment Not on file documented as of this encounter Visit Diagnoses Not on filedocumented in this encounter Care Teams Nondestructive Tester Relationship Specialty Start Date End Date Carl Patton MD [address] [place] [address] PCP - General Family Medicine 06/03/23 documented as of this encounter
--- OUTSIDE RECORDS SUMMARY | 2024-04-05 11:57 | XMS_ITS | Encounter Summary ---
Author Organization [employer] Address [address] [place] [address] Care Team Providers Care Knowledge Architect Name Role Phone Carl Patton MD Primary Care Provider [phone] Reason for Referral * Rehabilitation (Routine) - Closed Specialty Diagnoses / Procedures Referred By Contact Referred To Contact Cardiac Rehabilitation Diagnoses Stented coronary artery Christopher Khalil MD [address] [facility] [address] [place] [address] Phone: tel: fax: [address] [address] Phone: tel: Referral ID Status Reason Start Date Expiration Date V isits Requested Visits Authorized [id number] Closed Specialty Services Required 06/06/2023 12/03/2023 1 1 Reason for Visit * Reason Comments Chest Pain * Auth/Cert (Routine) Specialty Diagnoses / Procedures Referred By Contac t Referred To Contact Diagnoses NSTEMI (non-ST elevated myocardial infarction) (HCC) [place] [id number] Inter[facility] [address] [place] [phone] Phone: tel: fax: [place] [phone] Inter[facility] [address] [place] [phone] Phone: tel: fax: Referral ID Status Reason Start Date Expiration Date Visits Re quested Visits Authorized [id number] 1 1 Encounter Details Date Type Department Care Team (Late st Contact Info) Description 06/03/2023 9:43 AM EST - 06/07/2023 3:41 PM EST Hospital Encounter [facility] 4 Interventional Care Unit 1 [place] [address] Shaina FultonDO 1221 [place], [place] [id number] Samy Kulkarni MD 1401 [facility] [address] [id number] Chaitanya Blum MD [address] [address] Raz Carmichael MD [address] [id number] Stented coronary artery (Primary Dx); NSTEMI (non-ST elevation myocardial infarction) (HCC); NSTEMI (non-ST elevated myocardial infarction) (HCC) Discharge Disposition: Home or Self Care Social [...] place to sleep or slept in a fdc (including now)? No 06/04/2023 Utilities Answer Date [...] your living situation today? I have a [facility] place to live 06/03/2023 Think about the [...] Do you speak a language other than [place] at [facility]? No 06/03/2023 Do you want help with [...] Sign Reading Time Taken Comments Blood Pressure 123/72 06/07/2023 1:50 PM EST Pulse 60 06/07/2023 1:50 PM EST Temperature 36.7 ??C (98.1 ??F) 06/07/2023 1:50 PM ES T Respiratory Rate 17 06/07/2023 1:50 PM EST Oxygen Saturation 89% 06/07/2023 1:50 PM EST Inhaled Oxygen Concentration - - Weight 73.9 kg (163 lb) 06/03/2023 9:51 AM EST Height 172.7 cm (5' 8 ) 06/03/2023 9:51 AM EST Body Mass Index 24.78 06/03/2023 9:51 AM EST documented in this encounter Discharge Summaries * Hossam Zohary, MD - 06/07/2023 3:41 PM EST Images from the original note were not included. DISCHARGE SUMMARY [facility] Patient Name: Arjun Melton : 1965 Date of Admission: 06/03/2023 Date of Discharge: 06/07/2023 3:41 PM Primary Care Physician: Carl Patton MD Consultations: Treatment Team: Consulting Physician: Debby Romero MD Consulting Physician: Glen Guallpa MD Consulting Physician: Shaina uFlton DO Discharge Diagnoses: NSTEMI (non-ST elevated myocardial infarction) (HCC) Reason for Admission: Arjun Melton is a 57 y.o. male presenting with chest pain to the emergency room. 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 He reports that he went to bed last night and in the middle of the night he woke up with some chest discomfort. But it continued to persist and wax and wane. This morning when he woke up he had an episode of nausea and vomited once. The pain did not radiate. For the most part it was in the substernal area. It does not go to the arm or to his upper back. Patient states that he went out to take care of his wooden stove. After he worked on it with some exertional activity the painseemed to increase in intensity. But he still ignored it and he went to work. He works at [employer]. He continued to feel unwell. 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 Patient does not admit any diaphoresis. He has not had any cough. There is no pleuritic component to it. The pain is described at the time of onset was nearly 8 or 9/10. Currently it is at 3/10. ?? He does take an aspirin a day. He has had a previous history of CAD and underwent a stent placementto the LAD in 2020. Patient had been a smoker and used to smoke a pack per day up until 7 weeks ago. He denies any history of alcohol abuse. Because of the persistent symptoms he decided to come intothe emergency room. On arrival here his temperature was 98.6. Pulse rate was 66 and blood pressure was 167 x 81. His white count was 9.6 and hemoglobin was 10.6. Initial troponin was 616. A repeat 1 is at 633. Patient did have an EKG done which revealed a normal sinus rhythm without any acute ST-T wave changes. His chest x-ray did not reveal any evidence of infiltrate. Patient has received a doseof aspirin and he was started also on a heparin drip. Of note he is already on a beta-josé luis with metoprolol. Because he continued to have a low discomfort even after these above measures he was started on a nitroglycerin drip Hospital Course: ??? CAD-??ruled out for myocardial infarction ? MART to LAD 12/2020 ??? HTN- uncontrolled on admission ??? HLD ??? Ongoing tobacco abuse ? = Non-ST relation myocardial infarction Patient presented with chest pain elevated troponin Echocardiogram Is noted below Patient was placed on IV heparin drip Then placed dula antiplatelet therapy Continue aspirin 81 mg p.o. daily, high-intensity statin 80 mg, lisinopril and metoprolol in addition to Plavix ?? = Coronary artery disease with history of coronary artery stent ?? = S/p Coronary Artery stent [address] romero = Essential hypertension Patient is on amlodipine and lisinopril at home ? = Acute kidney injury on top of chronic kidney disease stage III, improving Patient with chronic kidney disease stage 3 ?? = Hyperlipidemia Continue high-intensity atorvastatin 80 mg p.o. at night = Mild acute kidney injury, secondary to prerenal azotemia on top of chronic kidney disease stage-2 Creatinine is 1.7 went down to 1.55 I discussed with nephrology. Patient did not want to wait and he wanted to go home therefore I discussed with the patient and the creatinine and the need to follow-up with PCP and nephrology is hematocrit stable makes adequate urine last creatinine was 1.55 PLAN: 06/07/23 Can be discharged from our standpoint. Discharge on dual antiplatelet therapy. follow-up with Cardiology as an outpatient. DISPOSITION: Home . Stable Studies Performed: Labs: Recent Labs Lab(s) Units 06/07/23 0429 06/06/23 0548 06/05/23 2207 06/05/23 0419 06/04/23 0835 06/04/23 0834 06/03/23 1102 06/03/23 1026 WBC K/??L 10.3* 9.0 10.4* 7.1 -- < > -- -- HGB GM/DL 11.4* 11.7* 11.4* 11.2* -- < > -- -- HCT % 35.8* 37.7* 36.3* 36.7* -- < > -- -- PLT K/CU MM 506* 575* 570* 550* -- < > -- -- PROTIME seconds -- -- -- -- -- -- 11.6 -- INR ?? -- -- -- -- -- -- 1.07 -- MG mg/dL -- -- -- -- 2.0 -- -- 1.9 NA meq/L 135* 137 -- 137 138 -- -- 137 K meq/L 4.0 4.1 -- 3.9 4.4 -- -- 4.0 CL meq/L 106 105 -- 105 103 -- -- 104 CO2 meq/L 26 28 -- 28 31 -- -- 27 BUN mg/dL 20 17 -- 16 13 -- -- 11 CREATININE mg/dL 1.55* 1.58* -- 1.58* 1.70* -- -- 1.39* EGFR mL/min/1.73m2 51* 50* -- 50* 46* -- -- 58* GLUCOSE mg/dL 92 96 -- 88 106 -- -- 100 CALCIUM mg/dL 8.9 9.0 -- 9.2 9.7 -- -- 9.5 ALKPHOS U/L -- -- -- -- -- -- -- 60 BILITOT mg/dL -- -- -- -- -- -- -- 0.4 PROT gm/dL -- -- -- -- -- -- -- 7.0 ALT U/L -- -- -- -- -- -- -- 15* AST U/L -- -- -- -- -- -- -- 13 < > = values in this interval not displayed. Labs: WBC Date Value Ref Range Status 06/07/2023 10.3 (H) 3.6 - 9.5 K/??L Final ?? Hemoglobin Date Value Ref Range Status 06/07/2023 11.4 (L) 13.7 - 17.5 GM/DL Final ?? Platelets Date Value Ref Range Status 06/07/2023 506 (H) 163 - 369 K/CU MM Final ?? Creatinine Date Value Ref Range Status 06/07/2023 1.55 (H) 0.70 - 1.30 mg/dL Final 06/06/2023 1.58 (H) 0.70 - 1.30 mg/dL Final ?? BUN Date Value Ref Range Status 06/07/2023 20 7 - 22 mg/dL Final 06/06/2023 17 7 - 22 mg/dL Final ?? Potassium Date Value Ref Range Status 06/07/2023 4.0 3.5 - 5.1 meq/L Final ?? Sodium Date Value Ref Range Status 06/07/2023 135 (L) 136 - 146 meq/L Final ?? Magnesium Date Value Ref Range Status 06/04/2023 2.0 1.5 - 2.4 mg/dL Final ?? INR Date Value Ref Range Status 06/03/2023 1.07 0.90 - 1.20 Final ? Comment: ? Recommended therapeutic ranges using International Normalized Ratio (INR) are: ?? INR RANGE 2.0 - 3.0 ? Routine oral anticoagulant therapy ?? 2.5 - 3.5 ? Oral anticoagulant therapy for patients with thromboembolic events on standard doses of Coumadin and those with mechanical heart valves. ?? No results found for: CKTOTAL , CKMB , CKMBINDEX No results found for: BNP ?? Imaging: Echo Results (last 7 days) ?? Procedure Component Value Units Date/Time ?? ECHO COMPLETE (DOPPLER / COLOR) W OR WO CONTRAST [[id number]] Collected: 06/03/23 1151 ?? Order Status: Completed Updated: 06/04/23 1335 ?? Narrative: ?? TRANSTHORACIC ECHOCARDIOGRAPHY REPORT Demographics Patient Name: ISABEL Rios : 1965 Medical Record [id number] Age: 57 year(s) Number: Corporate ID Number: [id number] Gender Male Solutions Developer: Fior Olson RDCS Height: 68 inches Referring Physician: SAMY KULKARNI Weight: 163.01 pounds Interpreting DEBBY ROMERO MD BMI: 24.79 kg/m^2 Physician: Date of Service: 06/03/2023 Blood 147/77 mmHg Pressure: Room Number: ER 30 Type of Study: TTE procedure: ECHO COMPLETE (DOPPLER / COLOR) W OR WO CONTRAST. Patient Status: Routine IP Study Location: [facility] Quality: Good visualization Impression: ######################################## Indication: chest pain R07.9 Technically difficult study due to patient body habitus. Optison ultrasound enhancing agent administered for endocardial border definition. Normal sized left ventricle. Normal left ventricular wall thickness. Visually estimated ejection fraction 50% +/- 5%. Normal left ventricular systolic function. Normal left ventricular diastolic function. No hemodynamically significant valvular heart disease. Mildly dilated aortic root. 3.7cm. ######################################## Measurements Summary: LVEDd: 4.38 cm LVESd: 3.22 cm IVSEd: 1.07 cm AO Root:3.73 cm LVPWd: 0.98 cm Contractility Score At rest the following contractility abnormalities were noted: Hypokinesis of the Mid infero-septal, the Apical septal and the Basal infero-septal segments. Contractility of all other segments appeared normal. LV regional wall motion: (0-Not visualized 1-Normal 2-Hypokinesis 3-Akinesis 4-Dyskinesis 5-Aneurysm) Left Ventricle Peak E-wave: 0.94 Peak A-wave: 0.81 m/s E/A ratio: 1.17 m/s Volume umjgtffvi80.56 LV length: 7.76 cm ml Volume cyyegsnc96.62 ml LVOT diameter: 1.87 cm Normal sized left ventricle. Normal left ventricular wall thickness. Visually estimated ejection fraction 50% +/- 5%. Normal left ventricular systolic function. Unable to obtain bullseye average for strain due to irregular heart rhythm. Normal left ventricular diastolic function. No left ventricular masses or thrombi. Right Ventricle Diastolic dimension: 3.5 cm Normal sized right ventricle. Normal TAPSE c/w normal right ventricular function Left Atrium LA dimension: 2.7 cm LA volume:31.69 ml LA/Aorta: 0.72 Normal sized left atrium. Normal left atrial volume index Intact atrial septum. No atrial mass or thrombus. Right Atrium Normal sized right atrium. Intact atrial septum. No atrial mass or thrombus. Mitral Valve Deceleration time: 166.96 msec Thickened mitral valve chordae. Trace mitral regurgitation. No mitral stenosis. No masses or vegetations seen. Aortic Valve LVOT VTI: 23.53 cm Three cusped aortic valve Trace aortic regurgitation. No aortic stenosis. No masses or vegetations seen. Tricuspid Valve Structurally normal tricuspid valve. Trace tricuspid valve regurgitation. No tricuspid stenosis. No masses or vegetations seen. Pulmonic Valve Acceleration time: 101.5 msec Structurally normal pulmonic valve. Trace pulmonary valve regurgitation. No pulmonic stenosis. No masses or vegetations seen. Great Vessels Aorta Aortic Root: 3.73 cm LVOT Diameter: 1.87 cm Visualized aorta is normal. Mildly dilated aortic root. 3.7cm. No evidence of dissection. Normal IVC with appropriate collapse. Pericardium / Pleura No pericardial effusion. XR chest 1 view portable / bedside Narrative: PORTABLE CHEST X-RAY ?? INDICATION: Acute chest pain. ?? FINDINGS: A portable view of the chest was obtained. Comparison is made to a prior exam dated 01/12/2021. The cardiac and mediastinal silhouettes are within normal limits. There is evidence of granulomatous disease. The lungs are otherwise clear. There is no pleural effusion or pneumothorax. Impression: No acute cardiac or pulmonary disease. Procedures Performed: Discharge Medications: Your medication list START taking these medications Instructions Comments Quantity Refills nitroglycerin 0.4 MG SL tablet Commonly known as: NITROSTAT Put 1 pill under tongue every 5min as needed for chest pain.No more than 3 doses in 15min.Call 911 if pain unrelieved 5min after 1st dose. 25 tablet 0 CONTINUE taking these medications Instructions Comments Quantity Refills acetaminophen 325 MG tablet Commonly known as: TYLENOL Take by mouth every 6 (six) hours if needed. 0 aspirin 81 MG EC tablet Take 1 tablet (81 mg total) by mouth daily. 0 famotidine 40 MG tablet Commonly known as: PEPCID Take 1 tablet (40 mg total) by mouth daily. 0 lisinopriL 10 MG tablet Commonly known as: PRINIVIL,ZESTRIL Take 1 tablet (10 mg total) by mouth daily. 0 STOP taking these medications dilTIAZem 120 MG 24 hr capsule Commonly known as: CARDIZEM CD ibuprofen 200 MG tablet Commonly known as: ADVIL,MOTRIN Where to Get Your Medications These medications were sent to [facility] at [address] [facility] [address] [phone] ?? nitroglycerin 0.4 MG SL tablet Physical Exam HENT: Head: Normocephalic and atraumatic. Eyes: Extraocular Movements: Extraocular movements intact. Conjunctiva/sclera: Conjunctivae normal. Cardiovascular: Rate and Rhythm: Normal rate and regular rhythm. Pulses: Normal pulses. Heart sounds: Normal heart sounds. Pulmonary: Effort: Pulmonary effort is normal. Breath sounds: Normal breath sounds. Abdominal: General: Abdomen is flat. Bowel sounds are normal. Palpations: Abdomen is soft. Musculoskeletal: General: Normal range of motion. Cervical back: Normal range of motion and neck supple. Neurological: General: No focal deficit present. Mental Status: He is alert. Psychiatric: Mood and Affect: Mood normal. Behavior: Behavior normal. Thought Content: Thought content normal. Judgment: Judgment normal. Discharge Instructions Discharge Diet: heart healthy diet Discharge Activity: as tolerated Discharge Follow UP: Contact information for follow-up [facility] Specialty: [facility] [place] [address] Next Steps: Follow up DEBBY ROMERO MD Specialty: Interventional Cardiology, Cardiology [address] [facility] [address] [place] [address] Next Steps: Follow up in 1 month(s) Glen Guallpa MD Specialty: Nephrology [address] [facility] [address] [place] [address] Next Steps: Follow up in 1 week(s) Carl Patton MD Specialty: Family Medicine Relationship: PCP - General [address] [place] [address] Next Steps: Follow up Time Spent: 31 minutes documented in this encounter Discharge Instructions * Discharge Instructions* Gloria Bell RN - 06/07/2023 3:07 PM EST EMS INTEGRATION ADVISOR * Attachments The following attachments cannot be sent through Care Everywhere. * DECISION AID - CORONARY ARTERY DISEASE (JORDANIAN) * Heart Attack Zwgj-la-Eyrs ([place]) * Heart Attack - Warning Signs and What to Do (B[place]ivian) * Radial Site Care ([place]ian) * Coronary Angiogram With Stent Care After ([place]ian) * Atorvastatin Tablets ([place]ian) * Nitroglycerin Sublingual Tablets (B[place]ivian) * Ticagrelor Tablets ([place]ian) documented in this encounter Medications at Time of Discharge acetaminophen (TYLENOL) 325 MG tablet Take by mouth every 6 (six) hours if needed. aspirin 81 MG EC tablet Take 1 tablet (81 mg total) by mouth daily. 03/03/2023 famotidine (PEPCID) 40 MG tablet Take 1 tablet (40 mg total) by mouth daily. 04/19/2023 lisinopriL (PRINIVIL,ZESTRIL ) 10 MG tablet Take 1 tablet (10 mg total) by mouth daily. 05/30/2023 nitroglycerin (NITROSTAT) 0.4 MG SL tablet Put 1 pill under tongue every 5min as needed for chest pain.No more than 3 doses in 15min.Call 911 if pain unrelieved 5min after 1st dose. 25 tablet 06/07/2023 5 atorvastatin (LIPITOR) 80 MG tablet Take 1 tablet (80 mg total) by mouth nightly for 30 days. 30 tablet 06/07/2023 4 isosorbide mononitrate (IMDUR) 30 MG 24 hr tablet Take 1 tablet (30 mg total) by mouth every morning. 05/25/2023 4 metoprolol succinate (TOPROL-XL) 50 MG 24 hr tablet Take 1 tablet (50 mg total) by mouth daily. 04/17/2023 4 ticagrelor (BRILINTA) 90 mg Tab tablet Take 1 tablet (90 mg total) by mouth 2 (two) times daily for 60 days. 60 tablet 1 06/07/2023 4 documented as of this encounter Progress Notes * Raz Carmichael MD - 06/07/2023 12:58 PM EST Images from the original note were not included. HOSPITALIST PROGRESS NOTE Patient: Arjun Melton Date: 06/07/2023 Subjective Date of Service: 06/07/2023 Evaluated the patient this morning RN is at the bedside He underwent emergent cardiac cath and had a stent placed He denies chest pain I discussed with the patient his creatinine he is not aware of any prior history Is making urine No dysuria or hematuria Objective Vitals: Temp: [97.9 ??F (36.6 ??C)-98 ??F (36.7 ??C)] 98 ??F (36.7 ??C) Pulse: [57-79] 57 Resp: [18] 18 BP: (142-153)/(62-82) 142/75 Intake/Output: No intake or output data in the 24 hours ending 06/07/23 1258 Physical exam: General: Alert and oriented, no acute distress Neurologic: Awake, alert, and oriented X3, no apparent focal deficits Eye: EOMI, normal conjunctiva HENT: Normocephalic, atraumatic Neck: no carotid bruits, no JVD Lungs: Clear to auscultation, non-labored respiration Heart: Normal rate, regular rhythm, no murmur Abdomen: Soft, non-tender, non-distended, normal bowel sounds Musculoskeletal: Normal range of motion and strength, no tenderness or swelling Skin: Skin is warm, dry, no rashes or lesions Psychiatric: Cooperative, appropriate mood and affect Labs: Recent Labs Lab(s) Units 06/07/23 0429 06/06/23 0548 06/05/23 2207 06/05/23 0419 06/04/23 0835 06/04/23 0834 06/03/23 1102 06/03/23 1026 WBC K/??L 10.3* 9.0 10.4* 7.1 -- < > -- -- HGB GM/DL 11.4* 11.7* 11.4* 11.2* -- < > -- -- HCT % 35.8* 37.7* 36.3* 36.7* -- < > -- -- PLT K/CU MM 506* 575* 570* 550* -- < > -- -- PROTIME seconds -- -- -- -- -- -- 11.6 -- INR -- -- -- -- -- -- 1.07 -- MG mg/dL -- -- -- -- 2.0 -- -- 1.9 NA meq/L 135* 137 -- 137 138 -- -- 137 K meq/L 4.0 4.1 -- 3.9 4.4 -- -- 4.0 CL meq/L 106 105 -- 105 103 -- -- 104 CO2 meq/L 26 28 -- 28 31 -- -- 27 BUN mg/dL 20 17 -- 16 13 -- -- 11 CREATININE mg/dL 1.55* 1.58* -- 1.58* 1.70* -- -- 1.39* EGFR mL/min/1.73m2 51* 50* -- 50* 46* -- -- 58* GLUCOSE mg/dL 92 96 -- 88 106 -- -- 100 CALCIUM mg/dL 8.9 9.0 -- 9.2 9.7 -- -- 9.5 ALKPHOS U/L -- -- -- -- -- -- -- 60 BILITOT mg/dL -- -- -- -- -- -- -- 0.4 PROT gm/dL -- -- -- -- -- -- -- 7.0 ALT U/L -- -- -- -- -- -- -- 15* AST U/L -- -- -- -- -- -- -- 13 < > = values in this interval not displayed. Medications: Scheduled Meds: ??? aspirin 81 mg Oral Daily 81 mg at 06/07/239[address] ??? atorvastatin 80 mg Oral Every Night 80 mg at 06/06/232057 ??? [Held by provider] lisinopriL 10 mg Oral Daily 10 mg at 06/04/23814 ??? metoprolol succinate 50 mg Oral Daily 50 mg at 06/07/23904 ??? pantoprazole 40 mg Oral BID 40 mg at 06/07/23904 ??? ticagrelor 90 mg Oral BID 90 mg at 06/07/23904 Continuous Infusions: ??? nitroglycerin Stopped (06/03/231814) PRN Meds: ??? acetaminophen ??? calcium carbonate ??? hydrALAZINE ??? magnesium hydroxide ??? morphine ??? nitroglycerin ??? ondansetron Or ??? ondansetron PF ??? sodium chloride 0.65% Assessment and Plan = Non-ST relation myocardial infarction Patient presented with chest pain elevated troponin Echocardiogram pending Patient was placed on IV heparin drip Continue aspirin 81 mg p.o. daily, high-dose statin 80 mg, lisinopril and metoprolol in addition toPlavix Cardiology following = Coronary artery disease with history of coronary artery stent = S/p Coronary Artery stent [address] falluji = Essential hypertension Patient is on amlodipine and lisinopril at home = Acute kidney injury on top of chronic kidney disease stage III, improving Patient with chronic kidney disease stage 3 = Hyperlipidemia Continue high-dose atorvastatin 80 mg p.o. at night = DVT and GI prophylaxis is placed on heparin and Protonix during this hospital stay Diet: Orders Placed This Encounter Procedures ??? Heart Healthy Diet Code Status: Current Code Status Full code MEDICAL DECISION MAKING Reviewed the patient CBC and BMP I reviewed lipid profile WBC 10.3 hemoglobin 11.4 hematocrit 35.8 Sodium 135 potassium 4.0 Initial creatinine was 1.70 went down from 0.58 went down to 1.58 then 1.55 I had a lengthy discussion with RN at the bedside I placed a consult to nephrology given the recent cath but there was done after the elevated creatinine at 1.7 at presentation . Cardiac monitoring overnight given the recent stent and also need for nephrology evaluation I discussed with RN at the bedside Discussed during MDR rounding He did have history of coronary artery disease with prior stent he said he had a stent put [place] [address] Sargent Discharge Planning: Barriers to discharge: Elevated creatinine, need for nephrology evaluation Underwent emergent cardiac cath with stent placement Expected (tentative) discharge in 1 day Expected discharge disposition (home, SNF/Rehab, etc): Home Additional discharge needs or delays: None TIME SPENT: 23 minutes Signed: Raz Carmichael MD 06/07/2023 EMS INTEGRATION ADVISOR * Debby Romreo MD - 06/07/2023 11:01 AM EST CARDIOLOGY PROGRESS NOTE Name Arjun Melton, 1965, 57 y.o., male Primary Cardiology: Dr. Romero PCP: Carl Patton MD Admit Date 06/03/2023 Patient Location [phone] Subjective: Doing well s/p PCI Inpatient Medications aspirin, 81 mg, Oral, Daily atorvastatin, 80 mg, Oral, Every Night [Held by provider] lisinopriL, 10 mg, Oral, Daily metoprolol succinate, 50 mg, Oral, Daily pantoprazole, 40 mg, Oral, BID ticagrelor, 90 mg, Oral, BID Allergies Patient has no known allergies. Objective Vital ranges lat 24 hours Temp: [97.9 ??F (36.6 ??C)] 97.9 ??F (36.6 ??C) Pulse: [58-79] 66 Resp: [18] 18 BP: (143-153)/(62-88) 153/66 Intake and Output 24 hours: No intake or output data in the 24 hours ending 06/07/23 1102 Net I&O this admission: Net IO Since Admission: No IO data has been entered for this period [06/07/23 1102] Physical Exam General: ??Alert and oriented, No acute distress. ?? Eye: ??Pupils are equal, round and reactive to light, Vision unchanged. ?? HENT: ??Normocephalic, Oral mucosa is moist. ?? Neck: ??Supple, Non-tender, No carotid bruit, No jugular venous distention. ?? Respiratory: ??Lungs are clear to auscultation, Respirations are non-labored, Symmetrical chest wall expansion. ?? Cardiovascular: ??Normal rate, Regular rhythm, No murmur, Good pulses equal in all extremities. ?? Gastrointestinal: ??Soft, Non-distended, Normal bowel sounds. ?? Musculoskeletal: ??Normal range of motion, Normal strength. ?? Integumentary: ??Warm, Dry, [place]. ?? Neurologic: ??Alert, Oriented. ?? Psychiatric: ??Cooperative, Appropriate mood &??affect.? Labs: WBC Date Value Ref Range Status 06/07/2023 10.3 (H) 3.6 - 9.5 K/??L Final Hemoglobin Date Value Ref Range Status 06/07/2023 11.4 (L) 13.7 - 17.5 GM/DL Final Platelets Date Value Ref Range Status 06/07/2023 506 (H) 163 - 369 K/CU MM Final Creatinine Date Value Ref Range Status 06/07/2023 1.55 (H) 0.70 - 1.30 mg/dL Final 06/06/2023 1.58 (H) 0.70 - 1.30 mg/dL Final BUN Date Value Ref Range Status 06/07/2023 20 7 - 22 mg/dL Final 06/06/2023 17 7 - 22 mg/dL Final Potassium Date Value Ref Range Status 06/07/2023 4.0 3.5 - 5.1 meq/L Final Sodium Date Value Ref Range Status 06/07/2023 135 (L) 136 - 146 meq/L Final Magnesium Date Value Ref Range Status 06/04/2023 2.0 1.5 - 2.4 mg/dL Final INR Date Value Ref Range Status 06/03/2023 1.07 0.90 - 1.20 Final Comment: Recommended therapeutic ranges using International Normalized Ratio (INR) are: INR RANGE 2.0 - 3.0 ? Routine oral anticoagulant therapy 2.5 - 3.5 ? Oral anticoagulant therapy for patients with thromboembolic events on standard doses of Coumadin and those with mechanical heart valves. No results found for: CKTOTAL , CKMB , CKMBINDEX No results found for: BNP Imaging: Echo Results (last 7 days) Procedure Component Value Units Date/Time ECHO COMPLETE (DOPPLER / COLOR) W OR WO CONTRAST [[id number]] Collected: 06/03/23 1151 Order Status: Completed Updated: 06/04/23 1335 Narrative: TRANSTHORACIC ECHOCARDIOGRAPHY REPORT Demographics Patient Name: ISABEL Rios : 1965 Medical Record [id number] Age: 57 year(s) Number: Corporate ID Number: [id number] Gender Male Solutions Developer: Fior Olson [facility] Height: 68 inches Referring Physician: SAMY KULKARNI Weight: 163.01 pounds MD Interpreting DEBBY ROMERO MD BMI: 24.79 kg/m^2 Physician: Date of Service: 06/03/2023 Blood 147/77 mmHg Pressure: Room Number: ER 30 Type of Study: TTE procedure: ECHO COMPLETE (DOPPLER / COLOR) W OR WO CONTRAST. Patient Status: Routine IP [facility] Impression: ######################################## Indication: chest pain R07.9 Technically difficult study due to patient body habitus. Optison ultrasound enhancing agent administered for endocardial border definition. Normal sized left ventricle. Normal left ventricular wall thickness. Visually estimated ejection fraction 50% +/- 5%. Normal left ventricular systolic function. Normal left ventricular diastolic function. No hemodynamically significant valvular heart disease. Mildly dilated aortic root. 3.7cm. ######################################## Measurements Summary: LVEDd: 4.38 cm LVESd: 3.22 cm IVSEd: 1.07 cm AO Root:3.73 cm LVPWd: 0.98 cm Contractility Score At rest the following contractility abnormalities were noted: Hypokinesis of the Mid infero-septal, the Apical septal and the Basal infero-septal segments. Contractility of all other segments appeared normal. LV regional wall motion: (0-Not visualized 1-Normal 2-Hypokinesis 3-Akinesis 4-Dyskinesis 5-Aneurysm) Left Ventricle Peak E-wave: 0.94 Peak A-wave: 0.81 m/s E/A ratio: 1.17 m/s Volume [id number] LV length: 7.76 cm ml Volume [id number] ml LVOT diameter: 1.87 cm Normal sized left ventricle. Normal left ventricular wall thickness. Visually estimated ejection fraction 50% +/- 5%. Normal left ventricular systolic function. Unable to obtain bullseye average for strain due to irregular heart rhythm. Normal left ventricular diastolic function. No left ventricular masses or thrombi. Right Ventricle Diastolic dimension: 3.5 cm Normal sized right ventricle. Normal TAPSE c/w normal right ventricular function Left Atrium LA dimension: 2.7 cm LA volume:31.69 ml LA/Aorta: 0.72 Normal sized left atrium. Normal left atrial volume index Intact atrial septum. No atrial mass or thrombus. Right Atrium Normal sized right atrium. Intact atrial septum. No atrial mass or thrombus. Mitral Valve Deceleration time: 166.96 msec Thickened mitral valve chordae. Trace mitral regurgitation. No mitral stenosis. No masses or vegetations seen. Aortic Valve LVOT VTI: 23.53 cm Three cusped aortic valve Trace aortic regurgitation. No aortic stenosis. No masses or vegetations seen. Tricuspid Valve Structurally normal tricuspid valve. Trace tricuspid valve regurgitation. No tricuspid stenosis. No masses or vegetations seen. Pulmonic Valve Acceleration time: 101.5 msec Structurally normal pulmonic valve. Trace pulmonary valve regurgitation. No pulmonic stenosis. No masses or vegetations seen. Great Vessels Aorta Aortic Root: 3.73 cm LVOT Diameter: 1.87 cm Visualized aorta is normal. Mildly dilated aortic root. 3.7cm. No evidence of dissection. Normal IVC with appropriate collapse. Pericardium / Pleura No pericardial effusion. Assessment and Plan Problem List: Principal Problem: NSTEMI (non-ST elevated myocardial infarction) ([facility]) IMPRESSION: ??? CAD-??ruled out for myocardial infarction ? MART to LAD 12/2020 ??? HTN- uncontrolled on admission ??? HLD ??? Ongoing tobacco abuse PLAN: 06/07/23 Can be discharged from our standpoint. Discharge on dual antiplatelet therapy. Please arrange for the patient to follow-up with me as an outpatient. 06/06/23 The patient developed chest pain before the initiation of his stress test. Despite no EKG changes, and despite injecting him while he is having active chest pain and noticing no significant defect tosuggest myocardial ischemia, the patient continues to have episodes of chest pains since his come back from the nuclear scan. At this juncture I have elected to proceed with a coronary angiography ashis stress test was not completely done and had to be altered and the possibility of three-vessel disease or left main disease cannot be ruled out. He would like to proceed with that and is extremelyanxious at the time of the evaluation. Consent will be provided by him. He remains NPO. For coronary angiography today. 06/05/23?? For stress test in a.m. 06/04/23?? For a stress test on Tuesday. ??Continue with DAPT ?? 06/03/23?? DAPT, IV heparin, IV nitroglycerin in the light of hypertension, we will obtain the list of his medications and resume accordingly. ??Further plans to follow. ??Echocardiography today or first thing tomorrow morning EMS INTEGRATION ADVISOR EMS INTEGRATION ADVISOR * Lilo Berg - 06/06/2023 3:47 PM ESTSummary: cardiac rehab I discussed with Mr. Melton cardiac rehab and sent the referral to [facility]. EMS INTEGRATION ADVISOR * Raz Carmichael MD - 06/06/2023 11:16 AM EST Images from the original note were not included. HOSPITALIST PROGRESS NOTE Patient: Arjun Melton Date: 06/06/2023 Subjective Date of Service: 06/06/2023 I saw and evaluated the patient this morning Patient's is at the bedside Patient's RN and nurse food and beverage assistant manager is at the bedside Patient reported substernal chest pain He is quite anxious not in respiratory distress no palpitations He has history of coronary artery disease with prior stents Objective Vitals: Temp: [97.5 ??F (36.4 ??C)-98.2 ??F (36.8 ??C)] 97.5 ??F (36.4 ??C) Pulse: [54-63] 59 Resp: [16-18] 18 BP: (137-179)/(77-91) 179/91 Intake/Output: No intake or output data in the 24 hours ending 06/06/23 1116 Physical exam: General: Alert and oriented, no acute distress Neurologic: Awake, alert, and oriented X3, no apparent focal deficits Eye: EOMI, normal conjunctiva HENT: Normocephalic, atraumatic Neck: no carotid bruits, no JVD Lungs: Clear to auscultation, non-labored respiration Heart: Normal rate, regular rhythm, no murmur Abdomen: Soft, non-tender, non-distended, normal bowel sounds Musculoskeletal: Normal range of motion and strength, no tenderness or swelling Skin: Skin is warm, dry, no rashes or lesions Psychiatric: Cooperative, appropriate mood and affect Labs: Recent Labs Lab(s) Units 06/06/23 0548 06/05/23 2207 06/05/23 0419 06/04/23 0835 06/04/23 0834 06/03/23 1102 06/03/23 1026 WBC K/??L 9.0 10.4* 7.1 -- < > -- -- HGB GM/DL 11.7* 11.4* 11.2* -- < > -- -- HCT % 37.7* 36.3* 36.7* -- < > -- -- PLT K/CU MM 575* 570* 550* -- < > -- -- PROTIME seconds -- -- -- -- -- 11.6 -- INR -- -- -- -- -- 1.07 -- MG mg/dL -- -- -- 2.0 -- -- 1.9 NA meq/L 137 -- 137 138 -- -- 137 K meq/L 4.1 -- 3.9 4.4 -- -- 4.0 CL meq/L 105 -- 105 103 -- -- 104 CO2 meq/L 28 -- 28 31 -- -- 27 BUN mg/dL 17 -- 16 13 -- -- 11 CREATININE mg/dL 1.58* -- 1.58* 1.70* -- -- 1.39* EGFR mL/min/1.73m2 50* -- 50* 46* -- -- 58* GLUCOSE mg/dL 96 -- 88 106 -- -- 100 CALCIUM mg/dL 9.0 -- 9.2 9.7 -- -- 9.5 ALKPHOS U/L -- -- -- -- -- -- 60 BILITOT mg/dL -- -- -- -- -- -- 0.4 PROT gm/dL -- -- -- -- -- -- 7.0 ALT U/L -- -- -- -- -- -- 15* AST U/L -- -- -- -- -- -- 13 < > = values in this interval not displayed. Medications: Scheduled Meds: ??? aspirin 81 mg Oral Daily 81 mg at 06/05/23 0840 ??? atorvastatin 80 mg Oral Every Night 80 mg at 06/05/232046 ??? famotidine 20 mg Intravenous Once ??? [Held by provider] lisinopriL 10 mg Oral Daily 10 mg at 06/04/23 0815 ??? metoprolol succinate 50 mg Oral Daily 50 mg at 06/05/23 0840 ??? pantoprazole 40 mg Oral BID ??? pantoprazole 40 mg Intravenous Once ??? ticagrelor 90 mg Oral BID 90 mg at 06/05/232046 Continuous Infusions: ??? [Held by provider] heparin 10 Units/kg/hr (06/06/23 0745) ??? nitroglycerin Stopped (06/03/231814) PRN Meds: ??? acetaminophen ??? calcium carbonate ??? heparin Or ??? heparin ??? hydrALAZINE ??? magnesium hydroxide ??? morphine ??? nitroglycerin ??? ondansetron Or ??? ondansetron PF ??? sodium chloride 0.65% Assessment and Plan = Non-ST relation myocardial infarction Patient presented with chest pain elevated troponin Echocardiogram pending Patient was placed on IV heparin drip Continue aspirin 81 mg p.o. daily, high-dose statin 80 mg, lisinopril and metoprolol in addition toPlavix Cardiology following = Coronary artery disease with history of coronary artery stent = S/p Coronary Artery stent 2020 helen romero = Essential hypertension Patient is on amlodipine and lisinopril at home = Acute kidney injury on top of chronic kidney disease stage III, improving Patient with chronic kidney disease stage 3 = Hyperlipidemia Continue high-dose atorvastatin 80 mg p.o. at night = DVT and GI prophylaxis is placed on heparin and Protonix during this hospital stay Diet: Orders Placed This Encounter Procedures ??? NPO diet Code Status: Current Code Status Full code MEDICAL DECISION MAKING I reviewed CBC and BMP for this morning I reviewed lipid profile Sodium 137 potassium 4.1 chloride 105 BUN 17 creatinine 1.58 WBC 9.0 globin 11.7 hematocrit 37.7 platelets 575 Patient has been having chest pain Will continue IV heparin drip Continue IV nitroglycerin drip for chest pain Patient is scheduled for cardiac a stress test Had a lengthy discussion with the patient and his at the bedside regarding current condition further plans He did have history of coronary artery disease with prior stent he said he had a stent put in [address] Sargent Discharge Planning: Barriers to discharge: Ongoing chest pain Continue IV heparin drip Patient is scheduled for cardiac stress test Expected (tentative) discharge in 2-3 days Expected discharge disposition (home, SNF/Rehab, etc): Home Additional discharge needs or delays: None Signed: Raz Carmichael MD 06/06/2023 EMS INTEGRATION ADVISOR EMS INTEGRATION ADVISOR * Debby Romero MD - 06/06/2023 9:53 AM EST CARDIOLOGY PROGRESS NOTE Name Arjun Melton, 1965, 57 y.o., male Primary Cardiology: Dr. Romero PCP: Carl Patton MD Admit Date 06/03/2023 Patient Location [phone] Subjective: Going for stress test today. Inpatient Medications aspirin, 81 mg, Oral, Daily atorvastatin, 80 mg, Oral, Every Night [Held by provider] lisinopriL, 10 mg, Oral, Daily metoprolol succinate, 50 mg, Oral, Daily pantoprazole, 40 mg, Oral, Daily ticagrelor, 90 mg, Oral, BID Allergies Patient has no known allergies. Objective Vital ranges lat 24 hours Temp: [97.7 ??F (36.5 ??C)-98.2 ??F (36.8 ??C)] 98.2 ??F (36.8 ??C) Pulse: [54-63] 63 Resp: [16-18] 18 BP: (137-176)/(77-83) 138/81 Intake and Output 24 hours: No intake or output data in the 24 hours ending 06/06/23952 Net I&O this admission: Net IO Since Admission: No IO data has been entered for this period [06/06/23952] Physical Exam General: ??Alert and oriented, No acute distress. ?? Eye: ??Pupils are equal, round and reactive to light, Vision unchanged. ?? HENT: ??Normocephalic, Oral mucosa is moist. ?? Neck: ??Supple, Non-tender, No carotid bruit, No jugular venous distention. ?? Respiratory: ??Lungs are clear to auscultation, Respirations are non-labored, Symmetrical chest wall expansion. ?? Cardiovascular: ??Normal rate, Regular rhythm, No murmur, Good pulses equal in all extremities. ?? Gastrointestinal: ??Soft, Non-distended, Normal bowel sounds. ?? Musculoskeletal: ??Normal range of motion, Normal strength. ?? Integumentary: ??Warm, Dry, [place]. ?? Neurologic: ??Alert, Oriented. ?? Psychiatric: ??Cooperative, Appropriate mood &??affect.? Labs: WBC Date Value Ref Range Status 06/06/2023 9.0 3.6 - 9.5 K/??L Final Hemoglobin Date Value Ref Range Status 06/06/2023 11.7 (L) 13.7 - 17.5 GM/DL Final Platelets Date Value Ref Range Status 06/06/2023 575 (H) 163 - 369 K/CU MM Final Creatinine Date Value Ref Range Status 06/06/2023 1.58 (H) 0.70 - 1.30 mg/dL Final 06/05/2023 1.58 (H) 0.70 - 1.30 mg/dL Final BUN Date Value Ref Range Status 06/06/2023 17 7 - 22 mg/dL Final 06/05/2023 16 7 - 22 mg/dL Final Potassium Date Value Ref Range Status 06/06/2023 4.1 3.5 - 5.1 meq/L Final Sodium Date Value Ref Range Status 06/06/2023 137 136 - 146 meq/L Final Magnesium Date Value Ref Range Status 06/04/2023 2.0 1.5 - 2.4 mg/dL Final INR Date Value Ref Range Status 06/03/2023 1.07 0.90 - 1.20 Final Comment: Recommended therapeutic ranges using International Normalized Ratio (INR) are: INR RANGE 2.0 - 3.0 ? Routine oral anticoagulant therapy 2.5 - 3.5 ? Oral anticoagulant therapy for patients with thromboembolic events on standard doses of Coumadin and those with mechanical heart valves. No results found for: CKTOTAL , CKMB , CKMBINDEX No results found for: BNP Imaging: Echo Results (last 7 days) Procedure Component Value Units Date/Time ECHO COMPLETE (DOPPLER / COLOR) W OR WO CONTRAST [[id number]] Collected: 06/03/23 1151 Order Status: Completed Updated: 06/04/23 1335 Narrative: TRANSTHORACIC ECHOCARDIOGRAPHY REPORT Demographics Patient Name: ISABEL Rios : 1965 Medical Record [id number] Age: 57 year(s) Number: Corporate ID Number: [id number] Gender Male Solutions Developer: Fior Olson [facility] Height: 68 inches Referring Physician: SAMY KULKARNI Weight: 163.01 pounds Interpreting DEBBY ROMERO MD BMI: 24.79 kg/m^2 Physician: Date of Service: 06/03/2023 Blood 147/77 mmHg Pressure: Room Number: ER 30 Type of Study: TTE procedure: ECHO COMPLETE (DOPPLER / COLOR) W OR WO CONTRAST. Patient Status: Routine IP [facility] Good visualization Impression: ######################################## Indication: chest pain R07.9 Technically difficult study due to patient body habitus. Optison ultrasound enhancing agent administered for endocardial border definition. Normal sized left ventricle. Normal left ventricular wall thickness. Visually estimated ejection fraction 50% +/- 5%. Normal left ventricular systolic function. Normal left ventricular diastolic function. No hemodynamically significant valvular heart disease. Mildly dilated aortic root. 3.7cm. ######################################## Measurements Summary: LVEDd: 4.38 cm LVESd: 3.22 cm IVSEd: 1.07 cm AO Root:3.73 cm LVPWd: 0.98 cm Contractility Score At rest the following contractility abnormalities were noted: Hypokinesis of the Mid infero-septal, the Apical septal and the Basal infero-septal segments. Contractility of all other segments appeared normal. LV regional wall motion: (0-Not visualized 1-Normal 2-Hypokinesis 3-Akinesis 4-Dyskinesis 5-Aneurysm) Left Ventricle Peak E-wave: 0.94 Peak A-wave: 0.81 m/s E/A ratio: 1.17 m/s Volume [id number] LV length: 7.76 cm ml Volume elaipizz72.62 ml LVOT diameter: 1.87 cm Normal sized left ventricle. Normal left ventricular wall thickness. Visually estimated ejection fraction 50% +/- 5%. Normal left ventricular systolic function. Unable to obtain bullseye average for strain due to irregular heart rhythm. Normal left ventricular diastolic function. No left ventricular masses or thrombi. Right Ventricle Diastolic dimension: 3.5 cm Normal sized right ventricle. Normal TAPSE c/w normal right ventricular function Left Atrium LA dimension: 2.7 cm LA volume:31.69 ml LA/Aorta: 0.72 Normal sized left atrium. Normal left atrial volume index Intact atrial septum. No atrial mass or thrombus. Right Atrium Normal sized right atrium. Intact atrial septum. No atrial mass or thrombus. Mitral Valve Deceleration time: 166.96 msec Thickened mitral valve chordae. Trace mitral regurgitation. No mitral stenosis. No masses or vegetations seen. Aortic Valve LVOT VTI: 23.53 cm Three cusped aortic valve Trace aortic regurgitation. No aortic stenosis. No masses or vegetations seen. Tricuspid Valve Structurally normal tricuspid valve. Trace tricuspid valve regurgitation. No tricuspid stenosis. No masses or vegetations seen. Pulmonic Valve Acceleration time: 101.5 msec Structurally normal pulmonic valve. Trace pulmonary valve regurgitation. No pulmonic stenosis. No masses or vegetations seen. Great Vessels Aorta Aortic Root: 3.73 cm LVOT Diameter: 1.87 cm Visualized aorta is normal. Mildly dilated aortic root. 3.7cm. No evidence of dissection. Normal IVC with appropriate collapse. Pericardium / Pleura No pericardial effusion. Assessment and Plan Problem List: Principal Problem: NSTEMI (non-ST elevated myocardial infarction) ([facility]) IMPRESSION: ??? CAD- ruled out for myocardial infarction ? MART to LAD 12/2020 ??? HTN- uncontrolled on admission ??? HLD ??? Ongoing tobacco abuse PLAN: 06/06/23 The patient developed chest pain before the initiation of his stress test. Despite no EKG changes, and despite injecting him while he is having active chest pain and noticing no significant defect tosuggest myocardial ischemia, the patient continues to have episodes of chest pains since his come back from the nuclear scan. At this juncture I have elected to proceed with a coronary angiography ashis stress test was not completely done and had to be altered and the possibility of three-vessel disease or left main disease cannot be ruled out. He would like to proceed with that and is extremelyanxious at the time of the evaluation. Consent will be provided by him. He remains NPO. For coronary angiography today. 06/05/23 For stress test in a.m. 06/04/23?? For a stress test on Tuesday. ??Continue with DAPT ?? 06/03/23?? DAPT, IV heparin, IV nitroglycerin in the light of hypertension, we will obtain the list of his medications and resume accordingly. ??Further plans to follow. ??Echocardiography today or first thing tomorrow morning. EMS INTEGRATION ADVISOR EMS INTEGRATION ADVISOR * Chaitanya Blum MD - 06/05/2023 12:07 PM EST Images from the original note were not included. HOSPITALIST PROGRESS NOTE Patient: Arjun Melton Date: 06/05/2023 Subjective Date of Service: 06/05/2023 Patient seen and examined at bedside this AM. He stated that he had some GERD symptoms earlier this morning Hemodynamically stable No major issues overnight Objective Vitals: Temp: [97.3 ??F (36.3 ??C)-98.1 ??F (36.7 ??C)] 97.3 ??F (36.3 ??C) Pulse: [56-88] 61 Resp: [16] 16 BP: (125-151)/(62-75) 151/71 Intake/Output: No intake or output data in the 24 hours ending 06/05/23 1207 Physical exam: General: Alert and oriented, no acute distress Neurologic: Awake, alert, and oriented X3, no apparent focal deficits Eye: EOMI, normal conjunctiva HENT: Normocephalic, atraumatic Neck: no carotid bruits, no JVD Lungs: Clear to auscultation, non-labored respiration Heart: Normal rate, regular rhythm, no murmur Abdomen: Soft, non-tender, non-distended, normal bowel sounds Musculoskeletal: Normal range of motion and strength, no tenderness or swelling Skin: Skin is warm, dry, no rashes or lesions Psychiatric: Cooperative, appropriate mood and affect Labs: Recent Labs Lab(s) Units 06/05/23 0419 06/04/23 0835 06/04/23 0834 06/03/23 1102 06/03/23 1026 06/03/23 1020 WBC K/??L 7.1 -- 8.4 -- -- 9.6* HGB GM/DL 11.2* -- 11.7* -- -- 10.6* HCT % 36.7* -- 37.8* -- -- 33.6* PLT K/CU MM 550* -- 622* -- -- 595* PROTIME seconds -- -- -- 11.6 -- -- INR -- -- -- 1.07 -- -- MG mg/dL -- 2.0 -- -- 1.9 -- NA meq/L 137 138 -- -- 137 -- K meq/L 3.9 4.4 -- -- 4.0 -- CL meq/L 105 103 -- -- 104 -- CO2 meq/L 28 31 -- -- 27 -- BUN mg/dL 16 13 -- -- 11 -- CREATININE mg/dL 1.58* 1.70* -- -- 1.39* -- EGFR mL/min/1.73m2 50* 46* -- -- 58* -- GLUCOSE mg/dL 88 106 -- -- 100 -- CALCIUM mg/dL 9.2 9.7 -- -- 9.5 -- ALKPHOS U/L -- -- -- -- 60 -- BILITOT mg/dL -- -- -- -- 0.4 -- PROT gm/dL -- -- -- -- 7.0 -- ALT U/L -- -- -- -- 15* -- AST U/L -- -- -- -- 13 -- Medications: Scheduled Meds: ??? aspirin 81 mg Oral Daily 81 mg at 06/05/23 0840 ??? atorvastatin 80 mg Oral Every Night 80 mg at 06/04/23 2019 ??? [Held by provider] lisinopriL 10 mg Oral Daily 10 mg at 06/04/23 0815 ??? metoprolol succinate 50 mg Oral Daily 50 mg at 06/05/23 0840 ??? pantoprazole 40 mg Oral Daily 40 mg at 06/05/23 0840 ??? ticagrelor 90 mg Oral BID 90 mg at 06/05/23 0841 Continuous Infusions: ??? heparin 9 Units/kg/hr (06/05/23 1031) ??? nitroglycerin Stopped (06/03/23 1815) PRN Meds: ??? acetaminophen ??? calcium carbonate ??? heparin Or ??? heparin ??? magnesium hydroxide ??? nitroglycerin ??? ondansetron Or ??? ondansetron PF ??? sodium chloride 0.65% Assessment and Plan Non-ST elevation myocardial infarction Patient presented with chest pain elevated troponin Echocardiogram pending Patient on heparin drip Continue aspirin 81 mg p.o. daily, high-dose statin 80 mg, lisinopril and metoprolol in addition toPlavix Cardiology following Plan for stress test in a.m. Will continue to watch patient on telemetry Cardiac diet for now, keep patient n.p.o. after midnight Uncontrolled hypertension, improving Continue Toprol-XL 50 mg p.o. daily Continue to hold lisinopril 10 mg daily for worsening kidney function IV hydralazine as needed Acute kidney injury on top of chronic kidney disease stage III, improving Creatinine today 1.5 Creatinine jumped from 1.3-1.7 Will continue to hold VIVI inhibitor Watch kidney function closely and avoid nephrotoxic medication Hyperlipidemia Continue high-dose atorvastatin 80 mg p.o. at night DVT and GI prophylaxis Diet: Orders Placed This Encounter Procedures ??? Heart Healthy Diet ??? NPO diet Code Status: Current Code Status Full code Medical Decision Making: CBC and CMP reviewed, showing sodium 137 potassium 3.9 creatinine 1.5 BUN of 16 PTT heparin 130 WBC7.1 hemoglobin 11.2 platelet count 550 AM labs ordered with CBC and CMP High risk and medically complex patient with non-ST elevation myocardial infarction, plan for stress test this coming Tuesday, uncontrolled blood pressure medication, mild acute kidney injury, will hold lisinopril, repeat BMP in a.m. will monitor heparin drip with every 6 PTT and adjust heparin dripdose accordingly, chest x-ray personally reviewed and showed no acute changes Discharge Planning: Barriers to discharge: Stress test in am, may need C, Uncontrolled hypertension, acute kidney injury Expected (tentative) discharge in 2-3 days Expected discharge disposition (home, SNF/Rehab, etc): Home Additional discharge needs or delays: None Signed: Chaitanya Hudson MD 06/05/2023, 12:16 PM EMS INTEGRATION ADVISOR * Debby Romero MD - 06/05/2023 10:12 AM EST CARDIOLOGY PROGRESS NOTE Name Arjun Melton, 1965, 57 y.o., male Primary Cardiology: Dr. Romero PCP: Carl Patton MD Admit Date 06/03/2023 Patient Location [address] [place] [address] Subjective: No complaints today. No chest pains Inpatient Medications aspirin, 81 mg, Oral, Daily atorvastatin, 80 mg, Oral, Every Night [Held by provider] lisinopriL, 10 mg, Oral, Daily metoprolol succinate, 50 mg, Oral, Daily pantoprazole, 40 mg, Oral, Daily ticagrelor, 90 mg, Oral, BID Allergies Patient has no known allergies. Objective Vital ranges lat 24 hours Temp: [97.3 ??F (36.3 ??C)-98.1 ??F (36.7 ??C)] 97.3 ??F (36.3 ??C) Pulse: [56-88] 61 Resp: [16] 16 BP: (125-151)/(62-79) 151/71 Intake and Output 24 hours: No intake or output data in the 24 hours ending 06/05/23 1012 Net I&O this admission: Net IO Since Admission: No IO data has been entered for this period [06/05/23 1012] Physical Exam General: ??Alert and oriented, No acute distress. ?? Eye: ??Pupils are equal, round and reactive to light, Vision unchanged. ?? HENT: ??Normocephalic, Oral mucosa is moist. ?? Neck: ??Supple, Non-tender, No carotid bruit, No jugular venous distention. ?? Respiratory: ??Lungs are clear to auscultation, Respirations are non-labored, Symmetrical chest wall expansion. ?? Cardiovascular: ??Normal rate, Regular rhythm, No murmur, Good pulses equal in all extremities. ?? Gastrointestinal: ??Soft, Non-distended, Normal bowel sounds. ?? Musculoskeletal: ??Normal range of motion, Normal strength. ?? Integumentary: ??Warm, Dry, [place]. ?? Neurologic: ??Alert, Oriented. ?? Psychiatric: ??Cooperative, Appropriate mood &??affect. ? Labs: WBC Date Value Ref Range Status 06/05/2023 7.1 3.6 - 9.5 K/??L Final Hemoglobin Date Value Ref Range Status 06/05/2023 11.2 (L) 13.7 - 17.5 GM/DL Final Platelets Date Value Ref Range Status 06/05/2023 550 (H) 163 - 369 K/CU MM Final Creatinine Date Value Ref Range Status 06/05/2023 1.58 (H) 0.70 - 1.30 mg/dL Final 06/04/2023 1.70 (H) 0.70 - 1.30 mg/dL Final BUN Date Value Ref Range Status 06/05/2023 16 7 - 22 mg/dL Final 06/04/2023 13 7 - 22 mg/dL Final Potassium Date Value Ref Range Status 06/05/2023 3.9 3.5 - 5.1 meq/L Final Sodium Date Value Ref Range Status 06/05/2023 137 136 - 146 meq/L Final Magnesium Date Value Ref Range Status 06/04/2023 2.0 1.5 - 2.4 mg/dL Final INR Date Value Ref Range Status 06/03/2023 1.07 0.90 - 1.20 Final Comment: Recommended therapeutic ranges using International Normalized Ratio (INR) are: INR RANGE 2.0 - 3.0 ? Routine oral anticoagulant therapy 2.5 - 3.5 ? Oral anticoagulant therapy for patients with thromboembolic events on standard doses of Coumadin and those with mechanical heart valves. No results found for: CKTOTAL , CKMB , CKMBINDEX No results found for: BNP Imaging: Echo Results (last 7 days) Procedure Component Value Units Date/Time ECHO COMPLETE (DOPPLER / COLOR) W OR WO CONTRAST [[id number]] Collected: 06/03/23 1151 Order Status: Completed Updated: 06/04/23 1335 Narrative: TRANSTHORACIC ECHOCARDIOGRAPHY REPORT Demographics Patient Name: ISABEL Rios : 1965 Medical Record [id number] Age: 57 year(s) Number: Corporate ID Number: [id number] Gender Male Solutions Developer: Fior Olson [facility] Height: 68 inches Referring Physician: SAMY KULKARNI Weight: 163.01 pounds MD Interpreting DEBBY ROMERO MD BMI: 24.79 kg/m^2 Physician: Date of Service: 06/03/2023 Blood 147/77 mmHg Pressure: Room Number: ER 30 Type of Study: TTE procedure: ECHO COMPLETE (DOPPLER / COLOR) W OR WO CONTRAST. Patient Status: Routine IP [facility] Impression: ######################################## Indication: chest pain R07.9 Technically difficult study due to patient body habitus. Optison ultrasound enhancing agent administered for endocardial border definition. Normal sized left ventricle. Normal left ventricular wall thickness. Visually estimated ejection fraction 50% +/- 5%. Normal left ventricular systolic function. Normal left ventricular diastolic function. No hemodynamically significant valvular heart disease. Mildly dilated aortic root. 3.7cm. ######################################## Measurements Summary: LVEDd: 4.38 cm LVESd: 3.22 cm IVSEd: 1.07 cm AO Root:3.73 cm LVPWd: 0.98 cm Contractility Score At rest the following contractility abnormalities were noted: Hypokinesis of the Mid infero-septal, the Apical septal and the Basal infero-septal segments. Contractility of all other segments appeared normal. LV regional wall motion: (0-Not visualized 1-Normal 2-Hypokinesis 3-Akinesis 4-Dyskinesis 5-Aneurysm) Left Ventricle Peak E-wave: 0.94 Peak A-wave: 0.81 m/s E/A ratio: 1.17 m/s Volume [id number] LV length: 7.76 cm ml Volume owzgooid61.62 ml LVOT diameter: 1.87 cm Normal sized left ventricle. Normal left ventricular wall thickness. Visually estimated ejection fraction 50% +/- 5%. Normal left ventricular systolic function. Unable to obtain bullseye average for strain due to irregular heart rhythm. Normal left ventricular diastolic function. No left ventricular masses or thrombi. Right Ventricle Diastolic dimension: 3.5 cm Normal sized right ventricle. Normal TAPSE c/w normal right ventricular function Left Atrium LA dimension: 2.7 cm LA volume:31.69 ml LA/Aorta: 0.72 Normal sized left atrium. Normal left atrial volume index Intact atrial septum. No atrial mass or thrombus. Right Atrium Normal sized right atrium. Intact atrial septum. No atrial mass or thrombus. Mitral Valve Deceleration time: 166.96 msec Thickened mitral valve chordae. Trace mitral regurgitation. No mitral stenosis. No masses or vegetations seen. Aortic Valve LVOT VTI: 23.53 cm Three cusped aortic valve Trace aortic regurgitation. No aortic stenosis. No masses or vegetations seen. Tricuspid Valve Structurally normal tricuspid valve. Trace tricuspid valve regurgitation. No tricuspid stenosis. No masses or vegetations seen. Pulmonic Valve Acceleration time: 101.5 msec Structurally normal pulmonic valve. Trace pulmonary valve regurgitation. No pulmonic stenosis. No masses or vegetations seen. Great Vessels Aorta Aortic Root: 3.73 cm LVOT Diameter: 1.87 cm Visualized aorta is normal. Mildly dilated aortic root. 3.7cm. No evidence of dissection. Normal IVC with appropriate collapse. Pericardium / Pleura No pericardial effusion. Assessment and Plan Problem List: Principal Problem: NSTEMI (non-ST elevated myocardial infarction) ([facility]) IMPRESSION: ??? CAD- ruled out for myocardial infarction ? MART to LAD 12/2020 ??? HTN- uncontrolled on admission ??? HLD ??? Ongoing tobacco abuse PLAN: 06/06/23 Going for stress test today. We will follow the results and make further recommendations. 06/05/23 For stress test in a.m. 06/04/23 For a stress test on Tuesday. Continue with DAPT 06/03/23?? DAPT, IV heparin, IV nitroglycerin in the light of hypertension, we will obtain the list of his medications and resume accordingly. ??Further plans to follow. ??Echocardiography today or first thing tomorrow morning. EMS INTEGRATION ADVISOR EMS INTEGRATION ADVISOR EMS INTEGRATION ADVISOR * Chaitanya Blum MD - 06/04/2023 12:16 PM EST Images from the original note were not included. HOSPITALIST PROGRESS NOTE Patient: Arjun Melton Date: 06/04/2023 Subjective Date of Service: 06/04/2023 Patient seen and examined at bedside this AM. No acute events overnight. Denies any chest pain this morning Still on heparin drip Denies nausea and vomiting, no fever or chills. Objective Vitals: Temp: [97.7 ??F (36.5 ??C)-98.7 ??F (37.1 ??C)] 97.7 ??F (36.5 ??C) Pulse: [54-68] 57 Resp: [13-18] 13 BP: (120-167)/(71-89) 147/78 Intake/Output: No intake or output data in the 24 hours ending 06/04/23 1216 Physical exam: General: Alert and oriented, no acute distress Neurologic: Awake, alert, and oriented X3, no apparent focal deficits Eye: EOMI, normal conjunctiva HENT: Normocephalic, atraumatic Neck: no carotid bruits, no JVD Lungs: Clear to auscultation, non-labored respiration Heart: Normal rate, regular rhythm, no murmur Abdomen: Soft, non-tender, non-distended, normal bowel sounds Musculoskeletal: Normal range of motion and strength, no tenderness or swelling Skin: Skin is warm, dry, no rashes or lesions Psychiatric: Cooperative, appropriate mood and affect Labs: Recent Labs Lab(s) Units 06/04/23 0835 06/04/23 0834 06/03/23 1102 06/03/23 1026 06/03/23 1020 WBC K/??L -- 8.4 -- -- 9.6* HGB GM/DL -- 11.7* -- -- 10.6* HCT % -- 37.8* -- -- 33.6* PLT K/CU MM -- 622* -- -- 595* PROTIME seconds -- -- 11.6 -- -- INR -- -- 1.07 -- -- MG mg/dL 2.0 -- -- 1.9 -- NA meq/L 138 -- -- 137 -- K meq/L 4.4 -- -- 4.0 -- CL meq/L 103 -- -- 104 -- CO2 meq/L 31 -- -- 27 -- BUN mg/dL 13 -- -- 11 -- CREATININE mg/dL 1.70* -- -- 1.39* -- EGFR mL/min/1.73m2 46* -- -- 58* -- GLUCOSE mg/dL 106 -- -- 100 -- CALCIUM mg/dL 9.7 -- -- 9.5 -- ALKPHOS U/L -- -- -- 60 -- BILITOT mg/dL -- -- -- 0.4 -- PROT gm/dL -- -- -- 7.0 -- ALT U/L -- -- -- 15* -- AST U/L -- -- -- 13 -- Medications: Scheduled Meds: ??? aspirin 81 mg Oral Daily 81 mg at 06/04/23814 ??? atorvastatin 80 mg Oral Every Night 80 mg at 06/03/232009 ??? lisinopriL 10 mg Oral Daily 10 mg at 06/04/23814 ??? metoprolol succinate 50 mg Oral Daily 50 mg at 06/04/23814 ??? pantoprazole 40 mg Oral Daily 40 mg at 06/04/23814 ??? ticagrelor 90 mg Oral BID 90 mg at 06/04/23814 Continuous Infusions: ??? heparin 12 Units/kg/hr (06/04/23 0544) ??? nitroglycerin Stopped (06/03/231814) PRN Meds: ??? acetaminophen ??? heparin Or ??? heparin ??? magnesium hydroxide ??? nitroglycerin ??? ondansetron Or ??? ondansetron PF ??? sodium chloride 0.65% Assessment and Plan Non-ST elevation myocardial infarction Patient presented with chest pain elevated troponin Echocardiogram pending Patient on heparin drip Continue aspirin 81 mg p.o. daily, high-dose statin 80 mg, lisinopril and metoprolol in addition toPlavix Cardiology following Plan for stress test this coming Tuesday Will continue to watch patient on telemetry Cardiac diet Uncontrolled hypertension, improving Continue Toprol-XL 50 mg p.o. daily Hold lisinopril 10 mg daily for worsening kidney function IV hydralazine as needed Acute kidney injury on top of chronic kidney disease stage III Creatinine jumped from 1.3-1.7 Hold VIVI inhibitor Watch kidney function closely and avoid nephrotoxic medication Hyperlipidemia Continue high-dose atorvastatin 80 mg p.o. at night DVT and GI prophylaxis Diet: Orders Placed This Encounter Procedures ??? Heart Healthy Diet Code Status: Current Code Status Full code Medical Decision Making: CBC and CMP reviewed, showing sodium 138 potassium 4.4 creatinine 1.7 magnesium 2.0 WBC 8.4 hemoglobin 11.7 platelets 622 CXR independently reviewed, showing AM labs ordered with CBC and CMP High risk and medically complex patient with non-ST elevation myocardial infarction, plan for stress test this coming Tuesday, uncontrolled blood pressure medication, mild acute kidney injury, will hold lisinopril, repeat BMP in a.m. will monitor heparin drip with every 6 PTT and adjust heparin dripdose accordingly, chest x-ray personally reviewed and showed no acute changes Discharge Planning: Barriers to discharge: Stress test this coming Tuesday, uncontrolled hypertension, acute kidney injury Expected (tentative) discharge in 2-3 days Expected discharge disposition (home, SNF/Rehab, etc): Home Additional discharge needs or delays: None Signed: Chaitanya Hudson MD 06/04/2023, 12:16 PM EMS INTEGRATION ADVISOR * Debby Romero MD - 06/04/2023 9:08 AM EST CARDIOLOGY PROGRESS NOTE Name Arjun Melton, 1965, 57 y.o., male Primary Cardiology: Dr. Romero PCP: Carl Patton MD Admit Date 06/03/2023 Patient Location [address] [place] [address] Subjective: Doing well today. Chest pain-free and ruled out for myocardial infarction Inpatient Medications aspirin, 81 mg, Oral, Daily atorvastatin, 80 mg, Oral, Every Night lisinopriL, 10 mg, Oral, Daily metoprolol succinate, 50 mg, Oral, Daily pantoprazole, 40 mg, Oral, Daily ticagrelor, 90 mg, Oral, BID Allergies Patient has no known allergies. Objective Vital ranges lat 24 hours Temp: [97.7 ??F (36.5 ??C)-98.7 ??F (37.1 ??C)] 98.1 ??F (36.7 ??C) Pulse: [54-68] 56 Resp: [17-20] 17 BP: (120-167)/(71-91) 133/78 Intake and Output 24 hours: No intake or output data in the 24 hours ending 06/04/23907 Net I&O this admission: Net IO Since Admission: No IO data has been entered for this period [06/04/23907] Physical Exam General: Alert and oriented, No acute distress. Eye: Pupils are equal, round and reactive to light, Vision unchanged. HENT: Normocephalic, Oral mucosa is moist. Neck: Supple, Non-tender, No carotid bruit, No jugular venous distention. Respiratory: Lungs are clear to auscultation, Respirations are non-labored, Symmetrical chest wall expansion. Cardiovascular: Normal rate, Regular rhythm, No murmur, Good pulses equal in all extremities. Gastrointestinal: Soft, Non-distended, Normal bowel sounds. Musculoskeletal: Normal range of motion, Normal strength. Integumentary: Warm, Dry, [place]. Neurologic: Alert, Oriented. Psychiatric: Cooperative, Appropriate mood & affect. Labs: WBC Date Value Ref Range Status 06/04/2023 8.4 3.6 - 9.5 K/??L Final Hemoglobin Date Value Ref Range Status 06/04/2023 11.7 (L) 13.7 - 17.5 GM/DL Final Platelets Date Value Ref Range Status 06/04/2023 622 (H) 163 - 369 K/CU MM Final Creatinine Date Value Ref Range Status 06/03/2023 1.39 (H) 0.70 - 1.30 mg/dL Final Creatinine Level Date Value Ref Range Status 01/12/2021 2.00 (H) 0.70 - 1.30 mg/dL Final BUN Date Value Ref Range Status 06/03/2023 11 7 - 22 mg/dL Final Blood Urea Nitrogen Date Value Ref Range Status 01/12/2021 33 (H) 7 - 22 mg/dL Final Potassium Date Value Ref Range Status 06/03/2023 4.0 3.5 - 5.1 meq/L Final Sodium Date Value Ref Range Status 06/03/2023 137 136 - 146 meq/L Final Magnesium Date Value Ref Range Status 06/03/2023 1.9 1.5 - 2.4 mg/dL Final INR Date Value Ref Range Status 06/03/2023 1.07 0.90 - 1.20 Final Comment: Recommended therapeutic ranges using International Normalized Ratio (INR) are: INR RANGE 2.0 - 3.0 ? Routine oral anticoagulant therapy 2.5 - 3.5 ? Oral anticoagulant therapy for patients with thromboembolic events on standard doses of Coumadin and those with mechanical heart valves. No results found for: CKTOTAL , CKMB , CKMBINDEX No results found for: BNP Imaging: Echo Results (last 7 days) Procedure Component Value Units Date/Time ECHO COMPLETE (DOPPLER / COLOR) W OR WO CONTRAST [[id number]] Resulted: 06/03/23 1227 Order Status: Sent Updated: 06/03/23 1228 Assessment and Plan Problem List: Principal Problem: NSTEMI (non-ST elevated myocardial infarction) ([facility]) IMPRESSION: ??? CAD- ruled out for myocardial infarction ? MART to LAD 12/2020 ??? HTN- uncontrolled on admission ??? HLD ??? Ongoing tobacco abuse PLAN: 06/04/23 For a stress test on Tuesday. Continue with DAPT 06/03/23 DAPT, IV heparin, IV nitroglycerin in the light of hypertension, we will obtain the list of his medications and resume accordingly. Further plans to follow. Echocardiography today or first thing tomorrow morning. EMS INTEGRATION ADVISOR EMS INTEGRATION ADVISOR documented in this encounter H&P Notes * Samy Kulkarni MD - 06/03/2023 11:26 AM EST Primary care provider: Wojciech Patton History Of Present Illness Arjun Melton is a 57 y.o. male presenting with chest pain to the emergency room. 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 He reports that he went to bed last night and in the middle of the night he woke up with some chest discomfort. But it continued to persist and wax and wane. This morning when he woke up he had an episode of nausea and vomited once. The pain did not radiate. For the most part it was in the substernal area. It does not go to the arm or to his upper back. Patient states that he went out to take care of his wooden stove. After he worked on it with some exertional activity the painseemed to increase in intensity. But he still ignored it and he went to work. He works at [employer]. He continued to feel unwell. 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 Patient does not admit any diaphoresis. He has not had any cough. There is no pleuritic component to it. The pain is described at the time of onset was nearly 8 or 9/10. Currently it is at 3/10. He does take an aspirin a day. He has had a previous history of CAD and underwent a stent placementto the LAD in 2020. Patient had been a smoker and used to smoke a pack per day up until 7 weeks ago. He denies any history of alcohol abuse. Because of the persistent symptoms he decided to come intothe emergency room. On arrival here his temperature was 98.6. Pulse rate was 66 and blood pressure was 167 x 81. His white count was 9.6 and hemoglobin was 10.6. Initial troponin was 616. A repeat 1 is at 633. Patient did have an EKG done which revealed a normal sinus rhythm without any acute ST-T wave changes. His chest x-ray did not reveal any evidence of infiltrate. Patient has received a doseof aspirin and he was started also on a heparin drip. Of note he is already on a beta-josé luis with metoprolol. Because he continued to have a low discomfort even after these above measures he was started on a nitroglycerin drip. Currently does not have any pain or discomfort. Past Medical History Hypertension CAD with prior stent placement in 2020 Surgical History C4-7 cervical fusion Stent placement to LAD in 2020 Social History He reports that he has quit smoking. His smoking use included cigarettes. He has never used smokeless tobacco. No history on file for alcohol use and drug use. Patient admits to a pack per day of tobacco use for nearly 48 years and quit smoking about 7 weeks ago. Patient is single but has a long-term girlfriend of nearly 34 years. He does have 1 biological daughter. He works for the [employer]. Family History Mother and father disease. Father evidently of CAD when he was in his 70s Allergies Patient has no known allergies. Medications: Patient does not know the doses of his medications but he is supposedly on the following Lisinopril Omeprazole Metoprolol Baby aspirin Isosorbide Review of Systems Review of Systems Constitutional: Negative. HENT: Negative. Eyes: Negative. Respiratory: Positive for chest tightness. Negative for cough. Cardiovascular: Positive for chest pain. Negative for palpitations. Pain is mainly in the substernal area. It does not radiate to the back or to the arms. Worsens with some exertional activity Gastrointestinal: Negative. Endocrine: Negative. Genitourinary: Negative. Musculoskeletal: Negative. Skin: Negative. Allergic/Immunologic: Negative. Neurological: Positive for weakness. Negative for syncope. Hematological: Negative. Psychiatric/Behavioral: Negative. Last Recorded Vitals Blood pressure (!) 167/81, pulse 66, temperature 98.6 ??F (37 ??C), temperature source Oral, resp. rate 18, height 1.727 m (5' 8 ), weight 73.9 kg (163 lb), SpO2 100 %. Physical Exam Vitals reviewed. HENT: Head: Normocephalic. Right Ear: Tympanic membrane normal. Nose: Nose normal. Mouth/Throat: Mouth: Mucous membranes are moist. Eyes: Pupils: Pupils are equal, round, and reactive to light. Cardiovascular: Rate and Rhythm: Normal rate and regular rhythm. Heart sounds: Normal heart sounds. Pulmonary: Breath sounds: Normal breath sounds. Abdominal: General: There is no distension. Palpations: Abdomen is soft. Musculoskeletal: General: No swelling or tenderness. Cervical back: Neck supple. Skin: General: Skin is warm and dry. Neurological: General: No focal deficit present. Mental Status: He is alert and oriented to person, place, and time. Psychiatric: Mood and Affect: Mood normal. Behavior: Behavior normal. Diagnostic Results Admission on 06/03/2023 Component Date Value Ref Range Status ??? WBC 06/03/2023 9.6 (H) 3.6 - 9.5 K/??L Final ??? RBC 06/03/2023 4.32 4.20 - 5.70 M/??L Final ??? Hemoglobin 06/03/2023 10.6 (L) 13.7 - 17.5 GM/DL Final ??? Hematocrit 06/03/2023 33.6 (L) 40.0 - 51.0 % Final ??? MCV 06/03/2023 78 (L) 79 - 95 fL Final ??? MCH 06/03/2023 24.5 (L) 25.6 - 32.2 pg Final ??? MCHC 06/03/2023 31.5 (L) 32.2 - 36.5 GM/DL Final ??? RDW 06/03/2023 16.6 (H) 11.7 - 14.9 % Final ??? Platelets 06/03/2023 595 (H) 163 - 369 K/CU MM Final ??? MPV 06/03/2023 9.1 (L) 9.4 - 12.4 fL Final ??? % Neutros 06/03/2023 73 (H) 34 - 71 % Final ??? % Lymphs 06/03/2023 18 (L) 19 - 53 % Final ??? % Monos 06/03/2023 7 3 - 9 % Final ??? % Eos 06/03/2023 1 0 - 1 % Final ??? % Baso 06/03/2023 1 0 - 2 % Final ??? NRBC Absolute 06/03/2023 0.00 0 - 0.12 K/ul Final ??? # Neutros 06/03/2023 6.98 (H) 1.56 - 6.13 K/??L Final ??? # Lymphs 06/03/2023 1.72 1.00 - 3.50 K/??L Final ??? # Monos 06/03/2023 0.66 0.16 - 1.00 K/??L Final ??? # Eos 06/03/2023 0.12 0.00 - 0.80 K/??L Final ??? # Baso 06/03/2023 0.06 0.00 - 0.20 K/??L Final ??? Immature Granulocytes-Relative 06/03/2023 0.40 0.00 - 0.60 % Final ??? # IG 06/03/2023 0.04 0.00 - 0.05 K/uL Final ??? Sodium 06/03/2023 137 136 - 146 meq/L Final ??? Potassium 06/03/2023 4.0 3.5 - 5.1 meq/L Final ??? Chloride 06/03/2023 104 102 - 112 meq/L Final ??? CO2 06/03/2023 27 21 - 32 meq/L Final ??? Calcium 06/03/2023 9.5 8.4 - 10.1 mg/dL Final ??? Glucose 06/03/2023 100 74 - 106 mg/dL Final ??? BUN 06/03/2023 11 7 - 22 mg/dL Final ??? Creatinine 06/03/2023 1.39 (H) 0.70 - 1.30 mg/dL Final ??? BUN/Creatinine 06/03/2023 8 8 - 20 Final ??? Albumin 06/03/2023 3.6 3.4 - 5.0 g/dL Final ??? Alkaline Phosphatase 06/03/2023 60 27 - 136 U/L Final ??? ALT 06/03/2023 15 (L) 16 - 61 U/L Final ??? AST 06/03/2023 13 5 - 37 U/L Final ??? Total Bilirubin 06/03/2023 0.4 0.2 - 1.2 mg/dL Final ??? Protein, Total 06/03/2023 7.0 6.4 - 8.2 gm/dL Final ??? Anion Gap 06/03/2023 10 9 - 20 Final ??? A/G Ratio 06/03/2023 1.1 1.1 - 2.5 Final ??? Globulin 06/03/2023 3.4 1.5 - 4.5 g/dL Final ??? Osmolality Calc 06/03/2023 273.3 Final ? ? eGFR (mL/min/1.73m2) 06/03/2023 58 (L) >=60 mL/min/1.73m2 Final ??? Magnesium 06/03/2023 1.9 1.5 - 2.4 mg/dL Final ??? Troponin I High Sensitivity (pg/mL) 06/03/2023 616.2 (HH) 3 - 58.8 pg/mL Final ??? ProBNP (pg/mL) 06/03/2023 375 (H) 0 - 125 pg/mL Final ??? VENTRICULAR RATE EKG/MIN 06/03/2023 66 BPM Incomplete ??? ATRIAL RATE (MCT) 06/03/2023 66 BPM Incomplete ??? [place] Interval 06/03/2023 134 ms Incomplete ??? QRS-INTERVAL (MSEC) 06/03/2023 88 ms Incomplete ??? QT Interval 06/03/2023 390 ms Incomplete ??? QTC Interval 06/03/2023 408 ms Incomplete ??? P [place] 06/03/2023 31 degrees Incomplete ??? R AXIS (MCT) 06/03/2023 58 degrees Incomplete ??? T Wave [place] 06/03/2023 45 degrees Incomplete ??? [place] Diagnosis 06/03/2023 Incomplete Value: Age and gender specific ECG analysis Sinus rhythm with Possible premature atrial complexes with aberrant conduction Otherwise normal ECG No previous ECGs available ??? PTT Heparin 06/03/2023 27.2 (L) 45 - 65 seconds Final ??? Protime 06/03/2023 11.6 9.2 - 12.0 seconds Final ??? INR 06/03/2023 1.07 0.90 - 1.20 Final XR chest 1 view portable / bedside Narrative: PORTABLE CHEST X-RAY INDICATION: Acute chest pain. FINDINGS: A portable view of the chest was obtained. Comparison is made to a prior exam dated 01/12/2021. The cardiac and mediastinal silhouettes are within normal limits. There is evidence of granulomatous disease. The lungs are otherwise clear. There is no pleural effusion or pneumothorax. Impression: No acute cardiac or pulmonary disease. Images reviewed, interpreted, and dictated by Jennifer Rosario MD Assessment & Plan NSTEMI Patient is presented with ongoing chest pain and discomfort with a previous history of CAD and stent placement in 2020 Initial troponin at 616 and subsequent 1 at 633. Obtain echocardiogram and lipid panel Patient started on DAPT, metoprolol, Lipitor high-dose, placed on heparin drip and currently on nitroglycerin drip. EKG does not reveal any acute ST elevation Cardiology evaluating the patient for further recommendations Discussed with Dr. Romero. Follow troponin and EKG. Timing of further cardiac intervention will be as per cardiology discretion Hypertension Blood pressure was elevated to 167/81 upon arrival. Likely worsened with underlying pain and discomfort as well. He has been resumed on his metoprolol. He is currently on IV nitroglycerin. Will continue to titrate medication as necessary based on the follow-up blood pressure. Tobacco abuse Patient reports cessation about 7 weeks ago. Need for continued total tobacco cessation discussed. Anemia Mild with hemoglobin of 10.6 and no recent labs to compare with Patient does not admit to any known history of blood loss Obtain iron studies with MCV of 78 Add PPI If his hemoglobin remained stable he will need subsequent outpatient follow-up and workup for the same. CODE STATUS full code Plan of care discussed with patient. His data has been reviewed. Chest x-ray personally reviewed. Discussed with Dr. Romero and for further cardiac intervention as per his direction. Follow troponinand echocardiogram. It is anticipated that patient might spend 2 midnights and so we will place himin inpatient status. Time spent with the evaluation and review of above with management and plan ofcare 50 minutes Electronically signed by: Samy Kulkarni MD, 06/03/2023 at 11:26 AM EMS INTEGRATION ADVISOR documented in this encounter Consult Notes * Debby Romero MD - 06/03/2023 1:09 PM ESTAssociated Order(s): FS_MODEL_IP IP CONSULT TO CARDIOLOGY Cardiology CONSULTATION Name Arjun Blanca Melton, JESUS 1965, 57 y.o., male Primary Cardiology: Dr romero PCP: Carl Patton MD Admit Date 06/03/2023 Patient Location ED-30/ED30 Chief Complaint/ Reason for Consult: Chest pain History of Present Illness 57 y.o. year old male with history of CAD (MART to LAD 2020), HTN and HLD presented to the ER with complaints of chest pain. Pt states he went to bed in normal state of health. Woke up at midnight with severe chest pain and pressure. Did not resolve on it's own and therefore came to ER for evaluation. Pt denies stopping any home medications recently. No longer on DAPT according to home med list. Currently his chest pain has improved dramatically although remains with some mild discomfort which she describes to be around 1/10. Earlier this discomfort was severe 10/10 that woke him up from sleepit was left precordial with some radiation to the neck however over the past 1 hour or so, it has jones bsided and has become less significant. Cardiology consulted for chest pain. Inpatient Medications aspirin, 81 mg, Oral, Daily atorvastatin, 40 mg, Oral, Every Night Current Infusions: ??? heparin 12 Units/kg/hr (06/03/23 1130) Home Medications: Prior to Admission medications Not on File Allergies Patient has no known allergies. Surgical History: Pt has no past surgical history on file. Tobacco History Pt reports that he has quit smoking. His smoking use included cigarettes. He has never used smokeless tobacco. Family History Noncontributory Review of Systems Complete 10 point ROS Normal or Non-contributory except complaints described in HPI or other sections of this note. Objective Vital ranges lat 24 hours Temp: [98.6 ??F (37 ??C)] 98.6 ??F (37 ??C) Pulse: [60-68] 60 Resp: [18-20] 20 BP: (136-167)/(73-91) 161/74 Intake and Output 24 hours: No intake or output data in the 24 hours ending 06/03/23 1310 Net I&O this admission: Net IO Since Admission: No IO data has been entered for this period [06/03/23 1310] Physical Exam General: Alert and oriented, No acute distress. Eye: Pupils are equal, round and reactive to light, Vision unchanged. HENT: Normocephalic, Oral mucosa is moist. Neck: Supple, Non-tender, No carotid bruit, No jugular venous distention. Respiratory: Lungs are clear to auscultation, Respirations are non-labored, Symmetrical chest wall expansion. Cardiovascular: Normal rate, Regular rhythm, No murmur, Good pulses equal in all extremities. Gastrointestinal: Soft, Non-distended, Normal bowel sounds. Musculoskeletal: Normal range of motion, Normal strength. Integumentary: Warm, Dry, [place]. Neurologic: Alert, Oriented. Psychiatric: Cooperative, Appropriate mood & affect. Labs: WBC Date Value Ref Range Status 06/03/2023 9.6 (H) 3.6 - 9.5 K/??L Final Hemoglobin Date Value Ref Range Status 06/03/2023 10.6 (L) 13.7 - 17.5 GM/DL Final Platelets Date Value Ref Range Status 06/03/2023 595 (H) 163 - 369 K/CU MM Final Creatinine Date Value Ref Range Status 06/03/2023 1.39 (H) 0.70 - 1.30 mg/dL Final Creatinine Level Date Value Ref Range Status 01/12/2021 2.00 (H) 0.70 - 1.30 mg/dL Final BUN Date Value Ref Range Status 06/03/2023 11 7 - 22 mg/dL Final Blood Urea Nitrogen Date Value Ref Range Status 01/12/2021 33 (H) 7 - 22 mg/dL Final Potassium Date Value Ref Range Status 06/03/2023 4.0 3.5 - 5.1 meq/L Final Sodium Date Value Ref Range Status 06/03/2023 137 136 - 146 meq/L Final Magnesium Date Value Ref Range Status 06/03/2023 1.9 1.5 - 2.4 mg/dL Final INR Date Value Ref Range Status 06/03/2023 1.07 0.90 - 1.20 Final Comment: Recommended therapeutic ranges using International Normalized Ratio (INR) are: INR RANGE 2.0 - 3.0 ? Routine oral anticoagulant therapy 2.5 - 3.5 ? Oral anticoagulant therapy for patients with thromboembolic events on standard doses of Coumadin and those with mechanical heart valves. No results found for: CKTOTAL , CKMB , CKMBINDEX No results found for: BNP Imaging: Echo Results (last 7 days) Procedure Component Value Units Date/Time ECHO COMPLETE (DOPPLER / COLOR) W OR WO CONTRAST [[id number]] Resulted: 06/03/23 1227 Order Status: Sent Updated: 06/03/23 1228 Assessment and Plan Problem List: Active Problems: There are no active Hospital Problems. IMPRESSION: ??? Acute coronary syndrome o First troponin 616 -second set this pending ??? CAD o MART to LAD 12/2020 ??? HTN- uncontrolled on admission ??? HLD ??? Ongoing tobacco abuse PLAN: 06/03/23 DAPT, IV heparin, IV nitroglycerin in the light of hypertension, we will obtain the list of his medications and resume accordingly. Further plans to follow. Echocardiography today or first thing tomorrow morning. Electronically signed by: SAVANAH ELIZABETH PA-C, 06/03/2023 at 1:10 PM EMS INTEGRATION ADVISOR EMS INTEGRATION ADVISOR documented in this encounter ED Notes * Shaina Fulton DO - 06/03/2023 11:13 AM EST Subjective Chief Complaint: Chest Pain HPI 57-year-old male with history of CAD s/p stent presenting to the emerged from with chest pain. Patient says last night he woke up with retrosternal heavy chest pain that radiates around his chest. Pain has been intermittent since that time and is not exertional. He admits associated fatigue, dyspnea and nausea. Patient says the symptoms felt very similar to heart attack he had several years ago requiring multiple stents. He has not recently followed with a psychologist personnel. He did take nitroglycerin and 3 baby aspirin prior to coming to the ER. His chest pain has currently resolved. Patient History Past Medical History: Diagnosis Date ??? Hypertension History reviewed. No pertinent surgical history. History reviewed. No pertinent family history. Social History Tobacco Use ??? Smoking status: Former Types: Cigarettes ??? Smokeless tobacco: Never Substance Use Topics ??? Alcohol use: Not Currently Alcohol/week: 1.0 standard drink of alcohol Types: 1 Standard drinks or equivalent per week I reviewed the HPI, ROS and PFSH documentation recorded by others in the medical record and supplemented my note as needed. Review of Systems Review of Systems Negative unless stated otherwise in HPI. Physical Exam ED Triage Vitals [06/03/23 0951] Enc Vitals Group BP (!) 167/81 Pulse 66 Resp 18 Temp 98.6 ??F (37 ??C) Temp src Oral SpO2 100 % Weight 73.9 kg (163 lb) Height 1.727 m (5' 8 ) Head Circumference Peak Flow Pain Score Two Pain Loc Pain Edu? Excl. in GC? Physical Exam CONSTITUTIONAL: Awake, alert, comfortable appearing. EYES: Pupils are equally round and reactive to light. There is no evidence of conjunctival pallor. HENT: Mucous membranes moist. Oropharynx unremarkable. CARDIOVASCULAR: Heart is regular, no murmurs. Good peripheral pulses. PULMONARY/CHEST: Lungs are clear to auscultation bilaterally. No wheezing, rales, rhonchi. No signsof respiratory distress. Chest wall nontender. ABDOMINAL: Soft, nontender, nondistended. : No suprapubic tenderness MUSCULOSKELETAL: No deformities. No pedal edema, erythema or asymmetry. NEURO: The patient is AAOx3. There are no focal neurologic deficits. SKIN: Warm, well perfused. No acute rashes. PSYCH: Normal affect. CARDIAC CATH - LEFT HEART CATH W/ POSSIBLE INTERVENTION Final Result NM myocardial perfusion SPECT (at rest) Final Result ECHO COMPLETE (DOPPLER / COLOR) W OR WO CONTRAST Final Result XR chest 1 view portable / bedside Final Result No acute cardiac or pulmonary disease. Images reviewed, interpreted, and dictated by Jennifer Rosario MD Medications ondansetron PF (ZOFRAN) injection 4 mg (4 mg Intravenous Given 06/03/23 1025) HYDROmorphone (DILAUDID) injection 0.5 mg (0.5 mg Intravenous Given 06/03/23 1025) heparin bolus from bag 4,000 Units (4,000 Units Intravenous Bolus from Bag 06/03/23 1128) perflutren protein-a microsphr ([employer] Maintenance) Susp 3 mL (3 mLs Intravenous Given 06/03/23 1238) ticagrelor (BRILINTA) tablet 180 mg (180 mg Oral Given 06/03/23 1328) pantoprazole (PROTONIX) injection 40 mg (40 mg Intravenous Given 06/06/23 1128) famotidine (PF) injection 20 mg (20 mg Intravenous Given 06/06/23 1128) Tc-99m - tetrofosmin (MYOVIEW) 10.7 millicurie (10.7 millicuries Intravenous Given 06/06/23 1140) fentaNYL (SUBLIMAZE) injection (50 mcg Intravenous Given 06/06/23 1416) midazolam (PF) (VERSED) injection (2 mg Intravenous Given 06/06/23 1418) lidocaine (XYLOCAINE) injection 2% (5 mLs Subcutaneous Given 06/06/23 1420) heparin 1,000 Units/mL injection (3,000 Units Intravenous Given 06/06/23 1427) fentaNYL (SUBLIMAZE) injection (50 mcg Intravenous Given 06/06/23 1432) heparin 1,000 Units/mL injection (7,000 Units Intravenous Given 06/06/23 1437) niCARdipine (CARDENE) injection (1.25 mg Intravenous Given 06/06/23 0591) Results for orders placed or performed during the hospital encounter of 06/03/23 SARS-CoV2/Influenza/RSV RT-PCR Specimen: Nasopharyngeal Swab Result Value Ref Range SARS-COV2/RT-PCR Negative Negative Influenza A RT-PCR Negative Negative Influenza B RT-PCR Negative Negative RSV by RT-PCR Negative Negative CBC with Auto Diff Result Value Ref Range WBC 9.6 (H) 3.6 - 9.5 K/??L RBC 4.32 4.20 - 5.70 M/??L Hemoglobin 10.6 (L) 13.7 - 17.5 GM/DL Hematocrit 33.6 (L) 40.0 - 51.0 % MCV 78 (L) 79 - 95 fL MCH 24.5 (L) 25.6 - 32.2 pg MCHC 31.5 (L) 32.2 - 36.5 GM/DL RDW 16.6 (H) 11.7 - 14.9 % Platelets 595 (H) 163 - 369 K/CU MM MPV 9.1 (L) 9.4 - 12.4 fL % Neutros 73 (H) 34 - 71 % % Lymphs 18 (L) 19 - 53 % % Monos 7 3 - 9 % % Eos 1 0 - 1 % % Baso 1 0 - 2 % NRBC Absolute 0.00 0 - 0.12 K/ul # Neutros 6.98 (H) 1.56 - 6.13 K/??L # Lymphs 1.72 1.00 - 3.50 K/??L # Monos 0.66 0.16 - 1.00 K/??L # Eos 0.12 0.00 - 0.80 K/??L # Baso 0.06 0.00 - 0.20 K/??L Immature Granulocytes-Relative 0.40 0.00 - 0.60 % # IG 0.04 0.00 - 0.05 K/uL Comprehensive metabolic panel Result Value Ref Range Sodium 137 136 - 146 meq/L Potassium 4.0 3.5 - 5.1 meq/L Chloride 104 102 - 112 meq/L CO2 27 21 - 32 meq/L Calcium 9.5 8.4 - 10.1 mg/dL Glucose 100 74 - 106 mg/dL BUN 11 7 - 22 mg/dL Creatinine 1.39 (H) 0.70 - 1.30 mg/dL BUN/Creatinine 8 8 - 20 Albumin 3.6 3.4 - 5.0 g/dL Alkaline Phosphatase 60 27 - 136 U/L ALT 15 (L) 16 - 61 U/L AST 13 5 - 37 U/L Total Bilirubin 0.4 0.2 - 1.2 mg/dL Protein, Total 7.0 6.4 - 8.2 gm/dL Anion Gap 10 9 - 20 A/G Ratio 1.1 1.1 - 2.5 Globulin 3.4 1.5 - 4.5 g/dL Osmolality Calc 273.3 eGFR (mL/min/1.73m2) 58 (L) >=60 mL/min/1.73m2 Magnesium Result Value Ref Range Magnesium 1.9 1.5 - 2.4 mg/dL High Sensitivity Troponin I Result Value Ref Range Troponin I High Sensitivity (pg/mL) 616.2 (HH) 3 - 58.8 pg/mL PROBNP Result Value Ref Range ProBNP (pg/mL) 375 (H) 0 - 125 pg/mL PTT Heparin Protocol Result Value Ref Range PTT Heparin 27.2 (L) 45 - 65 seconds Prothrombin time/INR Result Value Ref Range Protime 11.6 9.2 - 12.0 seconds INR 1.07 0.90 - 1.20 High Sensitivity Troponin I Result Value Ref Range Troponin I High Sensitivity (pg/mL) 633.6 (HH) 3 - 58.8 pg/mL Lipid panel Result Value Ref Range Triglycerides 207 0 - 249 mg/dL Cholesterol 206 (H) 0 - 199 mg/dL HDL 42 >=40 mg/dL VLDL 41.4 (H) 5 - 40 mg/dL Cholesterol/HDL ratio 4.9 (H) 0.0 - 3.2 LDl/HDL Ratio 3 0 - 4 RISK COMP 5 LDL Cholesterol, Calculated 123 (H) 0 - 99 mg/dL PTT Heparin Protocol Result Value Ref Range PTT Heparin 53.2 45 - 65 seconds Iron and TIBC Result Value Ref Range Iron 66.0 65.0 - 175.0 ug/dL TIBC 405 250 - 450 ug/dL % Saturation 16 15 - 55 % UIBC 339 Ferritin Result Value Ref Range Ferritin 15.30 (L) 26.00 - 388.00 ng/mL High Sensitivity Troponin I Result Value Ref Range Troponin I High Sensitivity (pg/mL) 420.2 (H) 3 - 58.8 pg/mL PTT Heparin Protocol Result Value Ref Range PTT Heparin 54.1 45 - 65 seconds CBC with automated diff Result Value Ref Range WBC 8.4 3.6 - 9.5 K/??L RBC 4.79 4.20 - 5.70 M/??L Hemoglobin 11.7 (L) 13.7 - 17.5 GM/DL Hematocrit 37.8 (L) 40.0 - 51.0 % MCV 79 79 - 95 fL MCH 24.4 (L) 25.6 - 32.2 pg MCHC 31.0 (L) 32.2 - 36.5 GM/DL RDW 16.9 (H) 11.7 - 14.9 % Platelets 622 (H) 163 - 369 K/CU MM MPV 9.1 (L) 9.4 - 12.4 fL % Neutros 67 34 - 71 % % Lymphs 21 19 - 53 % % Monos 8 3 - 9 % % Eos 4 (H) 0 - 1 % % Baso 1 0 - 2 % NRBC Absolute 0.00 0 - 0.12 K/ul # Neutros 5.61 1.56 - 6.13 K/??L # Lymphs 1.78 1.00 - 3.50 K/??L # Monos 0.66 0.16 - 1.00 K/??L # Eos 0.30 0.00 - 0.80 K/??L # Baso 0.07 0.00 - 0.20 K/??L Immature Granulocytes-Relative 0.20 0.00 - 0.60 % # IG 0.02 0.00 - 0.05 K/uL Basic Metabolic Panel Result Value Ref Range Sodium 138 136 - 146 meq/L Potassium 4.4 3.5 - 5.1 meq/L Chloride 103 102 - 112 meq/L CO2 31 21 - 32 meq/L Anion Gap 8 (L) 9 - 20 BUN 13 7 - 22 mg/dL Creatinine 1.70 (H) 0.70 - 1.30 mg/dL BUN/Creatinine 8 8 - 20 Glucose 106 74 - 106 mg/dL Calcium 9.7 8.4 - 10.1 mg/dL Osmolality Calc 276.2 eGFR (mL/min/1.73m2) 46 (L) >=60 mL/min/1.73m2 Lipid panel Result Value Ref Range Triglycerides 117 0 - 249 mg/dL Cholesterol 235 (H) 0 - 199 mg/dL HDL 55 >=40 mg/dL VLDL 23.4 5 - 40 mg/dL Cholesterol/HDL ratio 4.3 (H) 0.0 - 3.2 LDl/HDL Ratio 3 0 - 4 RISK COMP 4 LDL Cholesterol, Calculated 157 (H) 0 - 99 mg/dL Magnesium Result Value Ref Range Magnesium 2.0 1.5 - 2.4 mg/dL High Sensitivity Troponin I Result Value Ref Range Troponin I High Sensitivity (pg/mL) 233.4 (H) 3 - 58.8 pg/mL PTT Heparin Protocol Result Value Ref Range PTT Heparin 58.9 45 - 65 seconds PTT Heparin Protocol Result Value Ref Range PTT Heparin 126.3 (HH) 45 - 65 seconds Basic Metabolic Panel Result Value Ref Range Sodium 137 136 - 146 meq/L Potassium 3.9 3.5 - 5.1 meq/L Chloride 105 102 - 112 meq/L CO2 28 21 - 32 meq/L Anion Gap 8 (L) 9 - 20 BUN 16 7 - 22 mg/dL Creatinine 1.58 (H) 0.70 - 1.30 mg/dL BUN/Creatinine 10 8 - 20 Glucose 88 74 - 106 mg/dL Calcium 9.2 8.4 - 10.1 mg/dL Osmolality Calc 274.4 eGFR (mL/min/1.73m2) 50 (L) >=60 mL/min/1.73m2 CBC with automated diff Result Value Ref Range WBC 7.1 3.6 - 9.5 K/??L RBC 4.64 4.20 - 5.70 M/??L Hemoglobin 11.2 (L) 13.7 - 17.5 GM/DL Hematocrit 36.7 (L) 40.0 - 51.0 % MCV 79 79 - 95 fL MCH 24.1 (L) 25.6 - 32.2 pg MCHC 30.5 (L) 32.2 - 36.5 GM/DL RDW 17.0 (H) 11.7 - 14.9 % Platelets 550 (H) 163 - 369 K/CU MM MPV 9.5 9.4 - 12.4 fL % Neutros 59 34 - 71 % % Lymphs 25 19 - 53 % % Monos 10 (H) 3 - 9 % % Eos 4 (H) 0 - 1 % % Baso 1 0 - 2 % NRBC Absolute 0.00 0 - 0.12 K/ul # Neutros 4.23 1.56 - 6.13 K/??L # Lymphs 1.79 1.00 - 3.50 K/??L # Monos 0.72 0.16 - 1.00 K/??L # Eos 0.30 0.00 - 0.80 K/??L # Baso 0.05 0.00 - 0.20 K/??L Immature Granulocytes-Relative 0.60 0.00 - 0.60 % # IG 0.04 0.00 - 0.05 K/uL PTT Heparin Protocol Result Value Ref Range PTT Heparin 130.2 (HH) 45 - 65 seconds PTT Heparin Protocol Result Value Ref Range PTT Heparin 47.4 45 - 65 seconds PTT Heparin Protocol Result Value Ref Range PTT Heparin 41.9 (L) 45 - 65 seconds PTT Heparin Protocol Result Value Ref Range PTT Heparin 99.5 (HH) 45 - 65 seconds CBC with automated diff Result Value Ref Range WBC 10.4 (H) 3.6 - 9.5 K/??L RBC 4.65 4.20 - 5.70 M/??L Hemoglobin 11.4 (L) 13.7 - 17.5 GM/DL Hematocrit 36.3 (L) 40.0 - 51.0 % MCV 78 (L) 79 - 95 fL MCH 24.5 (L) 25.6 - 32.2 pg MCHC 31.4 (L) 32.2 - 36.5 GM/DL RDW 17.0 (H) 11.7 - 14.9 % Platelets 570 (H) 163 - 369 K/CU MM MPV 9.4 9.4 - 12.4 fL % Neutros 60 34 - 71 % % Lymphs 25 19 - 53 % % Monos 10 (H) 3 - 9 % % Eos 4 (H) 0 - 1 % % Baso 1 0 - 2 % NRBC Absolute 0.00 0 - 0.12 K/ul # Neutros 6.20 (H) 1.56 - 6.13 K/??L # Lymphs 2.64 1.00 - 3.50 K/??L # Monos 1.02 (H) 0.16 - 1.00 K/??L # Eos 0.45 0.00 - 0.80 K/??L # Baso 0.07 0.00 - 0.20 K/??L Immature Granulocytes-Relative 0.30 0.00 - 0.60 % # IG 0.03 0.00 - 0.05 K/uL Basic Metabolic Panel Result Value Ref Range Sodium 137 136 - 146 meq/L Potassium 4.1 3.5 - 5.1 meq/L Chloride 105 102 - 112 meq/L CO2 28 21 - 32 meq/L Anion Gap 8 (L) 9 - 20 BUN 17 7 - 22 mg/dL Creatinine 1.58 (H) 0.70 - 1.30 mg/dL BUN/Creatinine 11 8 - 20 Glucose 96 74 - 106 mg/dL Calcium 9.0 8.4 - 10.1 mg/dL Osmolality Calc 275.2 eGFR (mL/min/1.73m2) 50 (L) >=60 mL/min/1.73m2 CBC with automated diff Result Value Ref Range WBC 9.0 3.6 - 9.5 K/??L RBC 4.81 4.20 - 5.70 M/??L Hemoglobin 11.7 (L) 13.7 - 17.5 GM/DL Hematocrit 37.7 (L) 40.0 - 51.0 % MCV 78 (L) 79 - 95 fL MCH 24.3 (L) 25.6 - 32.2 pg MCHC 31.0 (L) 32.2 - 36.5 GM/DL RDW 16.6 (H) 11.7 - 14.9 % Platelets 575 (H) 163 - 369 K/CU MM MPV 9.6 9.4 - 12.4 fL % Neutros 67 34 - 71 % % Lymphs 20 19 - 53 % % Monos 9 3 - 9 % % Eos 4 (H) 0 - 1 % % Baso 1 0 - 2 % NRBC Absolute 0.00 0 - 0.12 K/ul # Neutros 6.01 1.56 - 6.13 K/??L # Lymphs 1.76 1.00 - 3.50 K/??L # Monos 0.79 0.16 - 1.00 K/??L # Eos 0.36 0.00 - 0.80 K/??L # Baso 0.06 0.00 - 0.20 K/??L Immature Granulocytes-Relative 0.40 0.00 - 0.60 % # IG 0.04 0.00 - 0.05 K/uL *Note: Due to a large number of results and/or encounters for the requested time period, some results have not been displayed. A complete set of results can be found in Results Review. XR chest 1 view portable / bedside Result Date: 06/03/2023 PORTABLE CHEST X-RAY INDICATION: Acute chest pain. FINDINGS: A portable view of the chest was obtained. Comparison is made to a prior exam dated 01/12/2021. The cardiac and mediastinal silhouettes arewithin normal limits. There is evidence of granulomatous disease. The lungs are otherwise clear. There is no pleural effusion or pneumothorax. No acute cardiac or pulmonary disease. Images reviewed, interpreted, and dictated by Jennifer Rosario MD ED Course as of 06/09/23 0813 TueJun 03, 2023 1054 Troponin I High Sensitivity (pg/mL)(!!): 616.2 Patient reports known 60% stenosis several years ago. Symptoms similar to heart attack several years ago. Ordered heparin infusion for NSTEMI [MA] 1054 EKG was independently reviewed and interpreted by myself. EKG demonstrated sinus rhythm with rate 66. PVC. No acute ST elevation. [MA] 1114 Patient received prehospital ASA [MA] 1114 Consulted cardiology who will follow [MA] 1117 Independently reviewed chest x-ray. No acute cardiopulmonary disease on chest x-ray. No effusion, pneumothorax, consolidation. [MA] ED Course User Index [MA] Shaina Fulton, DO Procedures MDM Patient presented to the emerged permit as stated above. He reported chest pain that felt similar to a heart attack he had several years ago. Vitals were stable and he was nontoxic in appearance. EKGdid not show evidence of STEMI but troponin was elevated in the 600s. Due to patient's significant cardiac history and nature of chest pain I did start heparin infusion and consulted cardiology for NSTEMI. There is no acute ST elevation or indication for STEMI alert. Otherwise lab work was unremarkable. Renal function appears to be consistent with baseline. No significant electrolyte deficiencies. No evidence of infectious process or pneumonia on chest x-ray. Spoke with hospitalist who accepted patient to their care for further treatment. I have personally provided 34 minutes of critical care time exclusive of time spent on separately billable procedures. Time includes review of laboratory data, radiology results, discussion with consultants, and monitoring for potential decompensation. Interventions were performed as documented. Assessment & Plan Clinical Impression Diagnosis Comment Added By Time Added NSTEMI (non-ST elevated myocardial infarction) (HCC) Shaina FultonDO 06/09/2023 7:57 AM Disposition Admit [3] - 06/03/2023 2:46 PM Medication List START taking these medications atorvastatin 80 MG tablet Commonly known as: LIPITOR Take 1 tablet (80 mg total) by mouth nightly for 30 days. nitroglycerin 0.4 MG SL tablet Commonly known as: NITROSTAT Put 1 pill under tongue every 5min as needed for chest pain.No more than 3 doses in 15min.Call 911 if pain unrelieved 5min after 1st dose. ticagrelor 90 mg Tab tablet Commonly known as: BRILINTA Take 1 tablet (90 mg total) by mouth 2 (two) times daily for 60 days. CONTINUE taking these medications acetaminophen 325 MG tablet Commonly known as: TYLENOL aspirin 81 MG EC tablet famotidine 40 MG tablet Commonly known as: PEPCID isosorbide mononitrate 30 MG 24 hr tablet Commonly known as: IMDUR lisinopriL 10 MG tablet Commonly known as: PRINIVIL,ZESTRIL metoprolol succinate 50 MG 24 hr tablet Commonly known as: TOPROL-XL STOP taking these medications dilTIAZem 120 MG 24 hr capsule Commonly known as: DILACOR XR ibuprofen 200 MG tablet Commonly known as: ADVIL,MOTRIN Where to Get Your Medications These medications were sent to [facility] at [facility] [address] [facility] [address] [facility] [address], [facility] [id number] ?? atorvastatin 80 MG tablet ?? nitroglycerin 0.4 MG SL tablet ?? ticagrelor 90 mg Tab tablet Contact information for follow-up [facility] Specialty: [facility] [address] [place] [address] Next Steps: Follow up DEBBY ROMERO MD Specialty: Interventional Cardiology, Cardiology [address] [facility] [address] [place] [address] Next Steps: Follow up in 1 month(s) Glen Guallpa MD Specialty: Nephrology [address] [facility] [address] [place] [address] Next Steps: Follow up in 1 week(s) Carl Patton MD Specialty: Family Medicine Relationship: PCP - General [address] [facility] [address] Next Steps: Follow up Shaina Fulton DO 06/09/23 0813 EMS INTEGRATION ADVISOR * Alida Castro - 06/03/2023 9:47 AM EST Pt arrived to ED via EMS complaining of CP, SOB, and N/V since midnight. Pt given 1 Nitro and 324mgAspirin. EMS INTEGRATION ADVISOR documented in this encounter Miscellaneous Notes * Plan of Care - Annabelle Jimenez RN - 06/06/2023 9:49 PM EST Problem: Pain Goal: Patient's pain/discomfort is manageable Description: Assess and monitor patient's pain using appropriate pain scale. Collaborate with interdisciplinary team and initiate plan and interventions as ordered. Re-assess patient's pain level after pain management intervention. Outcome: Progressing Problem: Safety Goal: Patient will be injury free during hospitalization Description: Assess and monitor vitals signs, neurological status including level of consciousness and orientation. Assess patient's risk for falls and implement fall prevention plan of care and interventions per hospital policy. Ensure arm band on, uncluttered walking paths in room, adequate room lighting, call light and overbed table within reach, bed in low position, wheels locked, side rails up per policy, and non-skid footwear provided. Outcome: Progressing Intervention: Provide and maintain safe environment Recent Flowsheet Documentation Taken 06/06/20231999 by Annabelle Jimenez RN Side Rails/Bed Safety: 06/19 Problem: Potential for Developing a Blood Clot Goal: Tissue perfusion is adequate - venous Description: Assess and monitor skin color and temperature, skin integrity, pulses, capillary refill, edema, pain in extremities, Homans' sign, labs (D- dimer), and diagnostic tests (ultrasound, CT scan, VQ scan). Monitor for signs and symptoms of deep vein thrombosis (swelling of calf/thigh, redness, pain, tenderness). Monitor for signs and symptoms of pulmonary embolism (dyspnea, tachypnea, tachycardia). Collaborate with interdisciplinary team and initiate plans and interventions as needed Outcome: Progressing Problem: Daily Care Goal: Daily care needs are met Description: Assess and monitor ability to perform self care and identify potential discharge needs. Outcome: Progressing Intervention: Assess skin integrity/risk for skin breakdown and implement skin integrity plan of care and interventions per policy Recent Flowsheet Documentation Taken 06/06/2023 2100 by Annabelle Jimenez RN Activity Interventions: Active ROM Sensory Perceptions: 4 Moisture: 4 Activity: 3 Mobility: 4 Nutrition: 3 Friction and Shear: 3 Bean Scale Score: 21 Integumentary (WDL): WDL Problem: Potential for Infection Goal: Remains infection free Description: Assess and monitor vital signs, skin (color, moisture, integrity, turgor), respiratorystatus, urinary and gastrointestinal status, and labs (WBC, cultures). Administer antibiotics and antipyretics as ordered. Ensure aseptic care of all intravenous lines, invasive tubes/drains and wounds. Monitor for signs and symptoms of infection (redness, warmth, discharge, increased body temperature). Wash hands properly before and after each patient care activity. Follow isolation guidelines per hospital protocol/policy. Collaborate with interdisciplinary team and initiate plan and interventions as ordered. Outcome: Progressing Problem: Psychosocial Needs Goal: Demonstrates ability to cope with hospitalization/illness Description: Assess and monitor patients ability to cope with his/her illness. Outcome: Progressing Problem: Anxiety Goal: Anxiety is at manageable level Description: Assess and monitor patient's anxiety level. Monitor for signs and symptoms of anxiety both physical and emotional (heart palpitations, chest pain, shortness of breath, headaches, nausea,feeling jumpy, restlessness, irritable, apprehensive). Collaborate with interdisciplinary team and initiate plan and interventions as ordered. Outcome: Progressing Problem: Inadequate Coping Goal: Demonstrates ability to cope effectively Description: Patient is able to verbalize feelings related to emotional state. Outcome: Progressing Goal: Verbalizes adaptive coping mechanisms Description: Able to verbalize adaptive coping mechanisms such as physical activity, distraction, and deep breathing exercises. Outcome: Progressing Goal: Verbalizes personal strengths Description: Spend time with the patient using empathy and active listening skills. Outcome: Progressing Problem: Progressive Mobility Goal: BMAT Level 4 - With 1-person assistance or mobility aid as needed (walker, cane, crutches): Outcome: Progressing Problem: Discharge Barriers Goal: Patient's discharge needs are met Description: Collaborate with interdisciplinary team and initiate plans and interventions as needed. Outcome: Progressing Problem: Knowledge Deficit Goal: Patient/family/caregiver demonstrates understanding of disease process, treatment plan, medications, and discharge instructions Description: Complete learning assessment and assess knowledge base. Outcome: Progressing Problem: Hemodynamic Status Goal: Patient's vitals signs are stable Description: Assess and monitor patient's heart rate, rhythm, respiratory rate, peripheral pulses, capillary refill, color, body temperature, intake and output, labs and physical activity tolerance. Observe for signs of chest pain (note location, duration, severity, radiation and associated symptoms such as diaphoresis, nausea, indigestion). Monitor for signs and symptoms of heart failure (eg. shortness of breath, edema of feet/ankles/legs, rapid irregular heart rate, coughing, wheezing, white/pink blood tinged sputum, sudden weight gain, chest pain). Collaborate with interdisciplinary team and initiate plan and interventions as ordered. Outcome: Progressing Problem: Activity Intolerance/Impaired Mobility Goal: Mobility/activity is maintained at optimum level for patient Description: Assess and monitor patient barriers to mobility and need for assistive/adaptive devices. Assess patient's emotional response to limitations. Collaborate with interdisciplinary team and initiate plans and interventions as ordered. Outcome: Progressing Problem: Nutrition Goal: Nutritional status is improving Description: Monitor and assess patient for malnutrition (ex- brittle hair, bruises, dry skin, paleskin and conjunctiva, muscle wasting, smooth red tongue, and disorientation). Collaborate with interdisciplinary team and initiate plan and interventions as ordered. Monitor patient's weight and dietary intake as ordered or per policy. Utilize nutrition screening tool and intervene per policy. Determine patient's food preferences and provide high-protein, high- caloric foods as appropriate. Outcome: Progressing Problem: CV: Dysrhythmia Goal: Patient achieves/maintains stable cardiac rhythm Outcome: Progressing Problem: Pain Goal: Patient's pain/discomfort is manageable Description: Assess and monitor patient's pain using appropriate pain scale. Collaborate with interdisciplinary team and initiate plan and interventions as ordered. Re-assess patient's pain level after pain management intervention. Outcome: Progressing Problem: Safety Goal: Patient will be injury free during hospitalization Description: Assess and monitor vitals signs, neurological status including level of consciousness and orientation. Assess patient's risk for falls and implement fall prevention plan of care and interventions per hospital policy. Ensure arm band on, uncluttered walking paths in room, adequate room lighting, call light and overbed table within reach, bed in low position, wheels locked, side rails up per policy, and non-skid footwear provided. Outcome: Progressing Problem: Potential for Developing a Blood Clot Goal: Tissue perfusion is adequate - venous Description: Assess and monitor skin color and temperature, skin integrity, pulses, capillary refill, edema, pain in extremities, Homans' sign, labs (D- dimer), and diagnostic tests (ultrasound, CT scan, VQ scan). Monitor for signs and symptoms of deep vein thrombosis (swelling of calf/thigh, redness, pain, tenderness). Monitor for signs and symptoms of pulmonary embolism (dyspnea, tachypnea, tachycardia). Collaborate with interdisciplinary team and initiate plans and interventions as needed Outcome: Progressing Problem: Daily Care Goal: Daily care needs are met Description: Assess and monitor ability to perform self care and identify potential discharge needs. Outcome: Progressing Problem: Potential for Infection Goal: Remains infection free Description: Assess and monitor vital signs, skin (color, moisture, integrity, turgor), respiratorystatus, urinary and gastrointestinal status, and labs (WBC, cultures). Administer antibiotics and antipyretics as ordered. Ensure aseptic care of all intravenous lines, invasive tubes/drains and wounds. Monitor for signs and symptoms of infection (redness, warmth, discharge, increased body temperature). Wash hands properly before and after each patient care activity. Follow isolation guidelines per hospital protocol/policy. Collaborate with interdisciplinary team and initiate plan and interventions as ordered. Outcome: Progressing Problem: Psychosocial Needs Goal: Demonstrates ability to cope with hospitalization/illness Description: Assess and monitor patients ability to cope with his/her illness. Outcome: Progressing Problem: Anxiety Goal: Anxiety is at manageable level Description: Assess and monitor patient's anxiety level. Monitor for signs and symptoms of anxiety both physical and emotional (heart palpitations, chest pain, shortness of breath, headaches, nausea,feeling jumpy, restlessness, irritable, apprehensive). Collaborate with interdisciplinary team and initiate plan and interventions as ordered. Outcome: Progressing Problem: Inadequate Coping Goal: Demonstrates ability to cope effectively Description: Patient is able to verbalize feelings related to emotional state. Outcome: Progressing Goal: Verbalizes adaptive coping mechanisms Description: Able to verbalize adaptive coping mechanisms such as physical activity, distraction, and deep breathing exercises. Outcome: Progressing Goal: Verbalizes personal strengths Description: Spend time with the patient using empathy and active listening skills. Outcome: Progressing Problem: Progressive Mobility Goal: BMAT Level 4 - With 1-person assistance or mobility aid as needed (walker, cane, crutches): Outcome: Progressing Problem: Discharge Barriers Goal: Patient's discharge needs are met Description: Collaborate with interdisciplinary team and initiate plans and interventions as needed. Outcome: Progressing Problem: Knowledge Deficit Goal: Patient/family/caregiver demonstrates understanding of disease process, treatment plan, medications, and discharge instructions Description: Complete learning assessment and assess knowledge base. Outcome: Progressing Problem: Hemodynamic Status Goal: Patient's vitals signs are stable Description: Assess and monitor patient's heart rate, rhythm, respiratory rate, peripheral pulses, capillary refill, color, body temperature, intake and output, labs and physical activity tolerance. Observe for signs of chest pain (note location, duration, severity, radiation and associated symptoms such as diaphoresis, nausea, indigestion). Monitor for signs and symptoms of heart failure (eg. shortness of breath, edema of feet/ankles/legs, rapid irregular heart rate, coughing, wheezing, white/pink blood tinged sputum, sudden weight gain, chest pain). Collaborate with interdisciplinary team and initiate plan and interventions as ordered. Outcome: Progressing Problem: Activity Intolerance/Impaired Mobility Goal: Mobility/activity is maintained at optimum level for patient Description: Assess and monitor patient barriers to mobility and need for assistive/adaptive devices. Assess patient's emotional response to limitations. Collaborate with interdisciplinary team and initiate plans and interventions as ordered. Outcome: Progressing Problem: Nutrition Goal: Nutritional status is improving Description: Monitor and assess patient for malnutrition (ex- brittle hair, bruises, dry skin, paleskin and conjunctiva, muscle wasting, smooth red tongue, and disorientation). Collaborate with interdisciplinary team and initiate plan and interventions as ordered. Monitor patient's weight and dietary intake as ordered or per policy. Utilize nutrition screening tool and intervene per policy. Determine patient's food preferences and provide high-protein, high- caloric foods as appropriate. Outcome: Progressing Problem: CV: Dysrhythmia Goal: Patient achieves/maintains stable cardiac rhythm Outcome: Progressing EMS INTEGRATION ADVISOR * Plan of Care - Annabelle Jimenez RN - 06/05/2023 9:54 PM EST Problem: Pain Goal: Patient's pain/discomfort is manageable Description: Assess and monitor patient's pain using appropriate pain scale. Collaborate with interdisciplinary team and initiate plan and interventions as ordered. Re-assess patient's pain level after pain management intervention. Outcome: Progressing Problem: Safety Goal: Patient will be injury free during hospitalization Description: Assess and monitor vitals signs, neurological status including level of consciousness and orientation. Assess patient's risk for falls and implement fall prevention plan of care and interventions per hospital policy. Ensure arm band on, uncluttered walking paths in room, adequate room lighting, call light and overbed table within reach, bed in low position, wheels locked, side rails up per policy, and non-skid footwear provided. Outcome: Progressing Problem: Potential for Developing a Blood Clot Goal: Tissue perfusion is adequate - venous Description: Assess and monitor skin color and temperature, skin integrity, pulses, capillary refill, edema, pain in extremities, Homans' sign, labs (D- dimer), and diagnostic tests (ultrasound, CT scan, VQ scan). Monitor for signs and symptoms of deep vein thrombosis (swelling of calf/thigh, redness, pain, tenderness). Monitor for signs and symptoms of pulmonary embolism (dyspnea, tachypnea, tachycardia). Collaborate with interdisciplinary team and initiate plans and interventions as needed Outcome: Progressing Problem: Daily Care Goal: Daily care needs are met Description: Assess and monitor ability to perform self care and identify potential discharge needs. Outcome: Progressing Intervention: Assess skin integrity/risk for skin breakdown and implement skin integrity plan of care and interventions per policy Recent Flowsheet Documentation Taken 06/05/[id number] by Annabelle Jimenez RN Sensory Perceptions: 4 Moisture: 4 Activity: 4 Mobility: 4 Nutrition: 4 Friction and Shear: 3 Bean Scale Score: 23 Integumentary (WDL): WDL Problem: Potential for Infection Goal: Remains infection free Description: Assess and monitor vital signs, skin (color, moisture, integrity, turgor), respiratorystatus, urinary and gastrointestinal status, and labs (WBC, cultures). Administer antibiotics and antipyretics as ordered. Ensure aseptic care of all intravenous lines, invasive tubes/drains and wounds. Monitor for signs and symptoms of infection (redness, warmth, discharge, increased body temperature). Wash hands properly before and after each patient care activity. Follow isolation guidelines per hospital protocol/policy. Collaborate with interdisciplinary team and initiate plan and interventions as ordered. Outcome: Progressing Problem: Psychosocial Needs Goal: Demonstrates ability to cope with hospitalization/illness Description: Assess and monitor patients ability to cope with his/her illness. Outcome: Progressing Problem: Anxiety Goal: Anxiety is at manageable level Description: Assess and monitor patient's anxiety level. Monitor for signs and symptoms of anxiety both physical and emotional (heart palpitations, chest pain, shortness of breath, headaches, nausea,feeling jumpy, restlessness, irritable, apprehensive). Collaborate with interdisciplinary team and initiate plan and interventions as ordered. Outcome: Progressing Problem: Inadequate Coping Goal: Demonstrates ability to cope effectively Description: Patient is able to verbalize feelings related to emotional state. Outcome: Progressing Goal: Verbalizes adaptive coping mechanisms Description: Able to verbalize adaptive coping mechanisms such as physical activity, distraction, and deep breathing exercises. Outcome: Progressing Goal: Verbalizes personal strengths Description: Spend time with the patient using empathy and active listening skills. Outcome: Progressing Problem: Progressive Mobility Goal: BMAT Level 4 - With 1-person assistance or mobility aid as needed (walker, cane, crutches): Outcome: Progressing Problem: Discharge Barriers Goal: Patient's discharge needs are met Description: Collaborate with interdisciplinary team and initiate plans and interventions as needed. Outcome: Progressing Problem: Knowledge Deficit Goal: Patient/family/caregiver demonstrates understanding of disease process, treatment plan, medications, and discharge instructions Description: Complete learning assessment and assess knowledge base. Outcome: Progressing Problem: Hemodynamic Status Goal: Patient's vitals signs are stable Description: Assess and monitor patient's heart rate, rhythm, respiratory rate, peripheral pulses, capillary refill, color, body temperature, intake and output, labs and physical activity tolerance. Observe for signs of chest pain (note location, duration, severity, radiation and associated symptoms such as diaphoresis, nausea, indigestion). Monitor for signs and symptoms of heart failure (eg. shortness of breath, edema of feet/ankles/legs, rapid irregular heart rate, coughing, wheezing, white/pink blood tinged sputum, sudden weight gain, chest pain). Collaborate with interdisciplinary team and initiate plan and interventions as ordered. Outcome: Progressing Problem: Activity Intolerance/Impaired Mobility Goal: Mobility/activity is maintained at optimum level for patient Description: Assess and monitor patient barriers to mobility and need for assistive/adaptive devices. Assess patient's emotional response to limitations. Collaborate with interdisciplinary team and initiate plans and interventions as ordered. Outcome: Progressing Problem: Nutrition Goal: Nutritional status is improving Description: Monitor and assess patient for malnutrition (ex- brittle hair, bruises, dry skin, paleskin and conjunctiva, muscle wasting, smooth red tongue, and disorientation). Collaborate with interdisciplinary team and initiate plan and interventions as ordered. Monitor patient's weight and dietary intake as ordered or per policy. Utilize nutrition screening tool and intervene per policy. Determine patient's food preferences and provide high-protein, high- caloric foods as appropriate. Outcome: Progressing Problem: CV: Dysrhythmia Goal: Patient achieves/maintains stable cardiac rhythm Outcome: Progressing Problem: Pain Goal: Patient's pain/discomfort is manageable Description: Assess and monitor patient's pain using appropriate pain scale. Collaborate with interdisciplinary team and initiate plan and interventions as ordered. Re-assess patient's pain level after pain management intervention. Outcome: Progressing Problem: Safety Goal: Patient will be injury free during hospitalization Description: Assess and monitor vitals signs, neurological status including level of consciousness and orientation. Assess patient's risk for falls and implement fall prevention plan of care and interventions per hospital policy. Ensure arm band on, uncluttered walking paths in room, adequate room lighting, call light and overbed table within reach, bed in low position, wheels locked, side rails up per policy, and non-skid footwear provided. Outcome: Progressing Problem: Potential for Developing a Blood Clot Goal: Tissue perfusion is adequate - venous Description: Assess and monitor skin color and temperature, skin integrity, pulses, capillary refill, edema, pain in extremities, Homans' sign, labs (D- dimer), and diagnostic tests (ultrasound, CT scan, VQ scan). Monitor for signs and symptoms of deep vein thrombosis (swelling of calf/thigh, redness, pain, tenderness). Monitor for signs and symptoms of pulmonary embolism (dyspnea, tachypnea, tachycardia). Collaborate with interdisciplinary team and initiate plans and interventions as needed Outcome: Progressing Problem: Daily Care Goal: Daily care needs are met Description: Assess and monitor ability to perform self care and identify potential discharge needs. Outcome: Progressing Problem: Potential for Infection Goal: Remains infection free Description: Assess and monitor vital signs, skin (color, moisture, integrity, turgor), respiratorystatus, urinary and gastrointestinal status, and labs (WBC, cultures). Administer antibiotics and antipyretics as ordered. Ensure aseptic care of all intravenous lines, invasive tubes/drains and wounds. Monitor for signs and symptoms of infection (redness, warmth, discharge, increased body temperature). Wash hands properly before and after each patient care activity. Follow isolation guidelines per hospital protocol/policy. Collaborate with interdisciplinary team and initiate plan and interventions as ordered. Outcome: Progressing Problem: Psychosocial Needs Goal: Demonstrates ability to cope with hospitalization/illness Description: Assess and monitor patients ability to cope with his/her illness. Outcome: Progressing Problem: Anxiety Goal: Anxiety is at manageable level Description: Assess and monitor patient's anxiety level. Monitor for signs and symptoms of anxiety both physical and emotional (heart palpitations, chest pain, shortness of breath, headaches, nausea,feeling jumpy, restlessness, irritable, apprehensive). Collaborate with interdisciplinary team and initiate plan and interventions as ordered. Outcome: Progressing Problem: Inadequate Coping Goal: Demonstrates ability to cope effectively Description: Patient is able to verbalize feelings related to emotional state. Outcome: Progressing Goal: Verbalizes adaptive coping mechanisms Description: Able to verbalize adaptive coping mechanisms such as physical activity, distraction, and deep breathing exercises. Outcome: Progressing Goal: Verbalizes personal strengths Description: Spend time with the patient using empathy and active listening skills. Outcome: Progressing Problem: Progressive Mobility Goal: BMAT Level 4 - With 1-person assistance or mobility aid as needed (walker, cane, crutches): Outcome: Progressing Problem: Discharge Barriers Goal: Patient's discharge needs are met Description: Collaborate with interdisciplinary team and initiate plans and interventions as needed. Outcome: Progressing Problem: Knowledge Deficit Goal: Patient/family/caregiver demonstrates understanding of disease process, treatment plan, medications, and discharge instructions Description: Complete learning assessment and assess knowledge base. Outcome: Progressing Problem: Hemodynamic Status Goal: Patient's vitals signs are stable Description: Assess and monitor patient's heart rate, rhythm, respiratory rate, peripheral pulses, capillary refill, color, body temperature, intake and output, labs and physical activity tolerance. Observe for signs of chest pain (note location, duration, severity, radiation and associated symptoms such as diaphoresis, nausea, indigestion). Monitor for signs and symptoms of heart failure (eg. shortness of breath, edema of feet/ankles/legs, rapid irregular heart rate, coughing, wheezing, white/pink blood tinged sputum, sudden weight gain, chest pain). Collaborate with interdisciplinary team and initiate plan and interventions as ordered. Outcome: Progressing Problem: Activity Intolerance/Impaired Mobility Goal: Mobility/activity is maintained at optimum level for patient Description: Assess and monitor patient barriers to mobility and need for assistive/adaptive devices. Assess patient's emotional response to limitations. Collaborate with interdisciplinary team and initiate plans and interventions as ordered. Outcome: Progressing Problem: Nutrition Goal: Nutritional status is improving Description: Monitor and assess patient for malnutrition (ex- brittle hair, bruises, dry skin, paleskin and conjunctiva, muscle wasting, smooth red tongue, and disorientation). Collaborate with interdisciplinary team and initiate plan and interventions as ordered. Monitor patient's weight and dietary intake as ordered or per policy. Utilize nutrition screening tool and intervene per policy. Determine patient's food preferences and provide high-protein, high- caloric foods as appropriate. Outcome: Progressing Problem: CV: Dysrhythmia Goal: Patient achieves/maintains stable cardiac rhythm Outcome: Progressing EMS INTEGRATION ADVISOR * Plan of Care - Julio Pham RN - 06/04/2023 2:12 PM EST Problem: Pain Goal: Patient's pain/discomfort is manageable Description: Assess and monitor patient's pain using appropriate pain scale. Collaborate with interdisciplinary team and initiate plan and interventions as ordered. Re-assess patient's pain level after pain management intervention. Outcome: Progressing Problem: Safety Goal: Patient will be injury free during hospitalization Description: Assess and monitor vitals signs, neurological status including level of consciousness and orientation. Assess patient's risk for falls and implement fall prevention plan of care and interventions per hospital policy. Ensure arm band on, uncluttered walking paths in room, adequate room lighting, call light and overbed table within reach, bed in low position, wheels locked, side rails up per policy, and non-skid footwear provided. Outcome: Progressing Problem: Potential for Developing a Blood Clot Goal: Tissue perfusion is adequate - venous Description: Assess and monitor skin color and temperature, skin integrity, pulses, capillary refill, edema, pain in extremities, Homans' sign, labs (D- dimer), and diagnostic tests (ultrasound, CT scan, VQ scan). Monitor for signs and symptoms of deep vein thrombosis (swelling of calf/thigh, redness, pain, tenderness). Monitor for signs and symptoms of pulmonary embolism (dyspnea, tachypnea, tachycardia). Collaborate with interdisciplinary team and initiate plans and interventions as needed Outcome: Progressing Problem: Daily Care Goal: Daily care needs are met Description: Assess and monitor ability to perform self care and identify potential discharge needs. Outcome: Progressing Problem: Potential for Infection Goal: Remains infection free Description: Assess and monitor vital signs, skin (color, moisture, integrity, turgor), respiratorystatus, urinary and gastrointestinal status, and labs (WBC, cultures). Administer antibiotics and antipyretics as ordered. Ensure aseptic care of all intravenous lines, invasive tubes/drains and wounds. Monitor for signs and symptoms of infection (redness, warmth, discharge, increased body temperature). Wash hands properly before and after each patient care activity. Follow isolation guidelines per hospital protocol/policy. Collaborate with interdisciplinary team and initiate plan and interventions as ordered. Outcome: Progressing Problem: Psychosocial Needs Goal: Demonstrates ability to cope with hospitalization/illness Description: Assess and monitor patients ability to cope with his/her illness. Outcome: Progressing Problem: Anxiety Goal: Anxiety is at manageable level Description: Assess and monitor patient's anxiety level. Monitor for signs and symptoms of anxiety both physical and emotional (heart palpitations, chest pain, shortness of breath, headaches, nausea,feeling jumpy, restlessness, irritable, apprehensive). Collaborate with interdisciplinary team and initiate plan and interventions as ordered. Outcome: Progressing Problem: Inadequate Coping Goal: Demonstrates ability to cope effectively Description: Patient is able to verbalize feelings related to emotional state. Outcome: Progressing Goal: Verbalizes adaptive coping mechanisms Description: Able to verbalize adaptive coping mechanisms such as physical activity, distraction, and deep breathing exercises. Outcome: Progressing Goal: Verbalizes personal strengths Description: Spend time with the patient using empathy and active listening skills. Outcome: Progressing Problem: Progressive Mobility Goal: BMAT Level 4 - With 1-person assistance or mobility aid as needed (walker, cane, crutches): Outcome: Progressing Problem: Discharge Barriers Goal: Patient's discharge needs are met Description: Collaborate with interdisciplinary team and initiate plans and interventions as needed. Outcome: Progressing Problem: Knowledge Deficit Goal: Patient/family/caregiver demonstrates understanding of disease process, treatment plan, medications, and discharge instructions Description: Complete learning assessment and assess knowledge base. Outcome: Progressing Problem: Hemodynamic Status Goal: Patient's vitals signs are stable Description: Assess and monitor patient's heart rate, rhythm, respiratory rate, peripheral pulses, capillary refill, color, body temperature, intake and output, labs and physical activity tolerance. Observe for signs of chest pain (note location, duration, severity, radiation and associated symptoms such as diaphoresis, nausea, indigestion). Monitor for signs and symptoms of heart failure (eg. shortness of breath, edema of feet/ankles/legs, rapid irregular heart rate, coughing, wheezing, white/pink blood tinged sputum, sudden weight gain, chest pain). Collaborate with interdisciplinary team and initiate plan and interventions as ordered. Outcome: Progressing Problem: Activity Intolerance/Impaired Mobility Goal: Mobility/activity is maintained at optimum level for patient Description: Assess and monitor patient barriers to mobility and need for assistive/adaptive devices. Assess patient's emotional response to limitations. Collaborate with interdisciplinary team and initiate plans and interventions as ordered. Outcome: Progressing Problem: Nutrition Goal: Nutritional status is improving Description: Monitor and assess patient for malnutrition (ex- brittle hair, bruises, dry skin, paleskin and conjunctiva, muscle wasting, smooth red tongue, and disorientation). Collaborate with interdisciplinary team and initiate plan and interventions as ordered. Monitor patient's weight and dietary intake as ordered or per policy. Utilize nutrition screening tool and intervene per policy. Determine patient's food preferences and provide high-protein, high- caloric foods as appropriate. Outcome: Progressing Problem: CV: Dysrhythmia Goal: Patient achieves/maintains stable cardiac rhythm Outcome: Progressing EMS INTEGRATION ADVISOR * Plan of Iram Canada RN - 06/03/2023 10:55 PM EST Problem: Pain Goal: Patient's pain/discomfort is manageable Description: Assess and monitor patient's pain using appropriate pain scale. Collaborate with interdisciplinary team and initiate plan and interventions as ordered. Re-assess patient's pain level after pain management intervention. Outcome: Progressing Problem: Safety Goal: Patient will be injury free during hospitalization Description: Assess and monitor vitals signs, neurological status including level of consciousness and orientation. Assess patient's risk for falls and implement fall prevention plan of care and interventions per hospital policy. Ensure arm band on, uncluttered walking paths in room, adequate room lighting, call light and overbed table within reach, bed in low position, wheels locked, side rails up per policy, and non-skid footwear provided. Outcome: Progressing Problem: Potential for Developing a Blood Clot Goal: Tissue perfusion is adequate - venous Description: Assess and monitor skin color and temperature, skin integrity, pulses, capillary refill, edema, pain in extremities, Homans' sign, labs (D- dimer), and diagnostic tests (ultrasound, CT scan, VQ scan). Monitor for signs and symptoms of deep vein thrombosis (swelling of calf/thigh, redness, pain, tenderness). Monitor for signs and symptoms of pulmonary embolism (dyspnea, tachypnea, tachycardia). Collaborate with interdisciplinary team and initiate plans and interventions as needed Outcome: Progressing Problem: Daily Care Goal: Daily care needs are met Description: Assess and monitor ability to perform self care and identify potential discharge needs. Outcome: Progressing Problem: Potential for Infection Goal: Remains infection free Description: Assess and monitor vital signs, skin (color, moisture, integrity, turgor), respiratorystatus, urinary and gastrointestinal status, and labs (WBC, cultures). Administer antibiotics and antipyretics as ordered. Ensure aseptic care of all intravenous lines, invasive tubes/drains and wounds. Monitor for signs and symptoms of infection (redness, warmth, discharge, increased body temperature). Wash hands properly before and after each patient care activity. Follow isolation guidelines per hospital protocol/policy. Collaborate with interdisciplinary team and initiate plan and interventions as ordered. Outcome: Progressing Problem: Psychosocial Needs Goal: Demonstrates ability to cope with hospitalization/illness Description: Assess and monitor patients ability to cope with his/her illness. Outcome: Progressing Problem: Anxiety Goal: Anxiety is at manageable level Description: Assess and monitor patient's anxiety level. Monitor for signs and symptoms of anxiety both physical and emotional (heart palpitations, chest pain, shortness of breath, headaches, nausea,feeling jumpy, restlessness, irritable, apprehensive). Collaborate with interdisciplinary team and initiate plan and interventions as ordered. Outcome: Progressing Problem: Inadequate Coping Goal: Demonstrates ability to cope effectively Description: Patient is able to verbalize feelings related to emotional state. Outcome: Progressing Goal: Verbalizes adaptive coping mechanisms Description: Able to verbalize adaptive coping mechanisms such as physical activity, distraction, and deep breathing exercises. Outcome: Progressing Goal: Verbalizes personal strengths Description: Spend time with the patient using empathy and active listening skills. Outcome: Progressing Problem: Progressive Mobility Goal: BMAT Level 4 - With 1-person assistance or mobility aid as needed (walker, cane, crutches): Outcome: Progressing Problem: Discharge Barriers Goal: Patient's discharge needs are met Description: Collaborate with interdisciplinary team and initiate plans and interventions as needed. Outcome: Progressing Problem: Knowledge Deficit Goal: Patient/family/caregiver demonstrates understanding of disease process, treatment plan, medications, and discharge instructions Description: Complete learning assessment and assess knowledge base. Outcome: Progressing Problem: Hemodynamic Status Goal: Patient's vitals signs are stable Description: Assess and monitor patient's heart rate, rhythm, respiratory rate, peripheral pulses, capillary refill, color, body temperature, intake and output, labs and physical activity tolerance. Observe for signs of chest pain (note location, duration, severity, radiation and associated symptoms such as diaphoresis, nausea, indigestion). Monitor for signs and symptoms of heart failure (eg. shortness of breath, edema of feet/ankles/legs, rapid irregular heart rate, coughing, wheezing, white/pink blood tinged sputum, sudden weight gain, chest pain). Collaborate with interdisciplinary team and initiate plan and interventions as ordered. Outcome: Progressing Problem: Activity Intolerance/Impaired Mobility Goal: Mobility/activity is maintained at optimum level for patient Description: Assess and monitor patient barriers to mobility and need for assistive/adaptive devices. Assess patient's emotional response to limitations. Collaborate with interdisciplinary team and initiate plans and interventions as ordered. Outcome: Progressing Problem: Nutrition Goal: Nutritional status is improving Description: Monitor and assess patient for malnutrition (ex- brittle hair, bruises, dry skin, paleskin and conjunctiva, muscle wasting, smooth red tongue, and disorientation). Collaborate with interdisciplinary team and initiate plan and interventions as ordered. Monitor patient's weight and dietary intake as ordered or per policy. Utilize nutrition screening tool and intervene per policy. Determine patient's food preferences and provide high-protein, high- caloric foods as appropriate. Outcome: Progressing Problem: CV: Dysrhythmia Goal: Patient achieves/maintains stable cardiac rhythm Outcome: Progressing EMS INTEGRATION ADVISOR * Plan of Care - Juilo Pham RN - 06/03/2023 6:34 PM EST Problem: Pain Goal: Patient's pain/discomfort is manageable Description: Assess and monitor patient's pain using appropriate pain scale. Collaborate with interdisciplinary team and initiate plan and interventions as ordered. Re-assess patient's pain level after pain management intervention. Outcome: Progressing Problem: Safety Goal: Patient will be injury free during hospitalization Description: Assess and monitor vitals signs, neurological status including level of consciousness and orientation. Assess patient's risk for falls and implement fall prevention plan of care and interventions per hospital policy. Ensure arm band on, uncluttered walking paths in room, adequate room lighting, call light and overbed table within reach, bed in low position, wheels locked, side rails up per policy, and non-skid footwear provided. Outcome: Progressing Problem: Potential for Developing a Blood Clot Goal: Tissue perfusion is adequate - venous Description: Assess and monitor skin color and temperature, skin integrity, pulses, capillary refill, edema, pain in extremities, Homans' sign, labs (D- dimer), and diagnostic tests (ultrasound, CT scan, VQ scan). Monitor for signs and symptoms of deep vein thrombosis (swelling of calf/thigh, redness, pain, tenderness). Monitor for signs and symptoms of pulmonary embolism (dyspnea, tachypnea, tachycardia). Collaborate with interdisciplinary team and initiate plans and interventions as needed Outcome: Progressing Problem: Daily Care Goal: Daily care needs are met Description: Assess and monitor ability to perform self care and identify potential discharge needs. Outcome: Progressing Problem: Potential for Infection Goal: Remains infection free Description: Assess and monitor vital signs, skin (color, moisture, integrity, turgor), respiratorystatus, urinary and gastrointestinal status, and labs (WBC, cultures). Administer antibiotics and antipyretics as ordered. Ensure aseptic care of all intravenous lines, invasive tubes/drains and wounds. Monitor for signs and symptoms of infection (redness, warmth, discharge, increased body temperature). Wash hands properly before and after each patient care activity. Follow isolation guidelines per hospital protocol/policy. Collaborate with interdisciplinary team and initiate plan and interventions as ordered. Outcome: Progressing Problem: Psychosocial Needs Goal: Demonstrates ability to cope with hospitalization/illness Description: Assess and monitor patients ability to cope with his/her illness. Outcome: Progressing Problem: Anxiety Goal: Anxiety is at manageable level Description: Assess and monitor patient's anxiety level. Monitor for signs and symptoms of anxiety both physical and emotional (heart palpitations, chest pain, shortness of breath, headaches, nausea,feeling jumpy, restlessness, irritable, apprehensive). Collaborate with interdisciplinary team and initiate plan and interventions as ordered. Outcome: Progressing Problem: Inadequate Coping Goal: Demonstrates ability to cope effectively Description: Patient is able to verbalize feelings related to emotional state. Outcome: Progressing Goal: Verbalizes adaptive coping mechanisms Description: Able to verbalize adaptive coping mechanisms such as physical activity, distraction, and deep breathing exercises. Outcome: Progressing Goal: Verbalizes personal strengths Description: Spend time with the patient using empathy and active listening skills. Outcome: Progressing Problem: Progressive Mobility Goal: BMAT Level 4 - With 1-person assistance or mobility aid as needed (walker, cane, crutches): Outcome: Progressing Problem: Discharge Barriers Goal: Patient's discharge needs are met Description: Collaborate with interdisciplinary team and initiate plans and interventions as needed. Outcome: Progressing Problem: Knowledge Deficit Goal: Patient/family/caregiver demonstrates understanding of disease process, treatment plan, medications, and discharge instructions Description: Complete learning assessment and assess knowledge base. Outcome: Progressing Problem: Hemodynamic Status Goal: Patient's vitals signs are stable Description: Assess and monitor patient's heart rate, rhythm, respiratory rate, peripheral pulses, capillary refill, color, body temperature, intake and output, labs and physical activity tolerance. Observe for signs of chest pain (note location, duration, severity, radiation and associated symptoms such as diaphoresis, nausea, indigestion). Monitor for signs and symptoms of heart failure (eg. shortness of breath, edema of feet/ankles/legs, rapid irregular heart rate, coughing, wheezing, white/pink blood tinged sputum, sudden weight gain, chest pain). Collaborate with interdisciplinary team and initiate plan and interventions as ordered. Outcome: Progressing Problem: Activity Intolerance/Impaired Mobility Goal: Mobility/activity is maintained at optimum level for patient Description: Assess and monitor patient barriers to mobility and need for assistive/adaptive devices. Assess patient's emotional response to limitations. Collaborate with interdisciplinary team and initiate plans and interventions as ordered. Outcome: Progressing Problem: Nutrition Goal: Nutritional status is improving Description: Monitor and assess patient for malnutrition (ex- brittle hair, bruises, dry skin, paleskin and conjunctiva, muscle wasting, smooth red tongue, and disorientation). Collaborate with interdisciplinary team and initiate plan and interventions as ordered. Monitor patient's weight and dietary intake as ordered or per policy. Utilize nutrition screening tool and intervene per policy. Determine patient's food preferences and provide high-protein, high- caloric foods as appropriate. Outcome: Progressing Problem: CV: Dysrhythmia Goal: Patient achieves/maintains stable cardiac rhythm Outcome: Progressing EMS INTEGRATION ADVISOR documented in this encounter Plan of Treatment Scheduled Referrals Name Type Priority Associated Diagnoses Order Schedule Ambulatory Referral to Cardiac Rehab Outpatient Referral Routine Stented coronary artery Expected: 06/06/2023, Expires: 06/06/2024 documented as of this encounter Procedures Procedure Name Priority Date/Time Associated Diagnosis Comments CBC HEMOGRAM (SJ-BKR) Routine 06/07/2023 4:29 AM EST BASIC METABOLIC PANEL Routine 06/07/2023 4:29 AM EST CARDIAC CATH - LEFT HEART CATH W/ POSSIBLE INTERVENTION Routine 06/06/2023 2:59 PM EST NSTEMI (non-ST elevation myocardial infarction) (HCC) POCT-ACT Routine 06/06/2023 2:45 PM EST NM MYOCARDIAL PERFUSION SPECT (AT REST) Routine 06/06/2023 1:42 PM EST FS_MODEL_IP_ECG 12-LEAD Routine 06/06/2023 11:13 AM EST CBC W/ AUTO DIFF STAT 06/06/2023 5:48 AM EST PTT HEPARIN PROTOCOL Timed 06/06/2023 5:48 AM EST BASIC METABOLIC PANEL Routine 06/06/2023 5:48 AM EST CBC W/ AUTO DIFF STAT 06/05/2023 10:0 7 PM EST PTT HEPARIN PROTOCOL Timed 06/05/2023 10:07 PM EST PTT HEPARIN PROTOCOL Timed 06/05/2023 3:46 PM EST PTT HEPARIN PROTOCOL Timed 06/05/2023 9:48 AM EST PTT HEPARIN PROTOCOL STAT 06/05/2023 6:36 AM EST CBC W/ AUTO DIFF STAT 06/05/2023 4:19 AM EST PTT HEPARIN PROTOCOL Timed 06/05/2023 4:19 AM EST BASIC METABOLIC PANEL Routine 06/05/2023 4:19 AM EST MAGNESIUM STAT 06/04/2023 8:35 AM EST LIPID PANEL STAT 06/04/2023 8:35 AM EST BASIC METABOLIC PANEL STAT 06/04/2023 8:35 AM EST CBC W/ AUTO DIFF STAT 06/04/2023 8:34 AM EST PTT HEPARIN PROTOCOL Timed 06/04/2023 8:34 AM EST HIGH SENSITIVITY TROPONIN I STAT 06/04/2023 8:34 AM EST PTT HEPARIN PROTOCOL Timed 06/04/2023 12:18 AM EST PTT HEPARIN PROTOCOL STAT 06/03/2023 6:22 PM EST HIGH SENSITIVITY TROPONIN I STAT 06/03/2023 6:22 PM EST HIGH SENSITIVITY TROPONIN I STAT 06/03/2023 12:50 PM EST ECHO COMPLETE (DOPPLER / COLOR) W CONTRAST STAT 06/03/2023 12:27 PM EST PTT HEPARIN PROTOCOL STAT 06/03/2023 11:02 AM EST PROTHROMBIN TIME/INR STAT 06/03/2023 11:02 AM EST PROBNP STAT 06/03/2023 10:26 AM EST IRON AND TIBC Add-On 06/03/2023 10:26 AM EST MAGNESIUM STAT 06/03/2023 10:26 AM EST FERRITIN Add-On 06/03/2023 10:26 AM EST LIPID PANEL Add-On 06/03/2023 10:26 AM EST COMPREHENSIVE METABOLIC PANEL STAT 06/03/2023 10:26 AM EST CBC W/ AUTO DIFF STAT 06/03/2023 10:2 0 AM EST SARS-COV2/INFLUENZA/RS V RT-PCR STAT 06/03/2023 10:20 AM EST HIGH SENSITIVITY TROPONIN I STAT 06/03/2023 10:20 AM EST XR CHEST 1 VIEW PORTABLE / BEDSIDE STAT 06/03/2023 10:17 AM EST FS_MODEL_IP_ECG 12-LEAD Routine 06/03/2023 9:54 AM EST EKG-SCANNED 06/03/2023 EKG-SCANNED 06/03/2023 documented in this encounter Results * (ABNORMAL) Basic Metabolic Panel (06/07/2023 4:29 AM EST) Sodium 135(L) 136 - 146 meq/L 06/07/2023 5:11 AM [facility] Potassium 4.0 3.5 - 5.1 meq/L 06/07/2023 5:11 AM [facility] Chloride 106 102 - 112 meq/L 06/07/2023 5:11 AM [facility] CO2 26 21 - 32 meq/L 06/07/2023 5:11 AM [facility] Anion Gap 7(L) 9 - 20 06/07/2023 5:11 AM [facility] BUN 20 7 - 22 mg/dL 06/07/2023 5:11 AM [facility] Creatinine 1.55(H) 0.70 - 1.30 mg/dL 06/07/2023 5:11 AM [facility] BUN/Creatinine 13 8 - 20 06/07/2023 5:11 AM [facility] Glucose 92 74 - 106 mg/dL 06/07/2023 5:11 AM [facility] Calcium 8.9 8.4 - 10.1 mg/dL 06/07/2023 5:11 AM [facility] Osmolality Calc 272.4 5:11 AM [facility] eGFR (mL/min/1.73m2) 51(L) >=60 mL/min/1.7 3m2 06/07/2023 5:11 AM [facility] Comment:eGFR of <60 suggests chronic kidney disease if found over a 3 month period of time. eGFR <15 indicates renal failure. Blood Venipuncture / Unknown 06/07/2023 4:29 AM EST 06/07/2023 4:46 AM EST us Chaitanya Blum MD LAB BLOOD ORDERABLES Final Re sult [facility] [address] [phone] * (ABNORMAL) CBC (Hemogram only) (06/07/2023 4:29 AM EST) WBC 10.3(H) 3.6 - 9.5 K/??L 06/07/2023 5:01 AM [facility] RBC 4.61 4.20 - 5.70 M/??L 06/07/2023 5:01 AM [facility] Hemoglobin 11.4(L) 13.7 - 17.5 GM/DL 06/07/2023 5:01 AM [facility] Hematocrit 35.8(L) 40.0 - 51.0 % 06/07/2023 5:01 AM [facility] MCV 78(L) 79 - 95 fL 06/07/2023 5:01 AM [facility] MCH 24.7(L) 25.6 - 32.2 pg 06/07/2023 5:01 AM [facility] MCHC 31.8(L) 32.2 - 36.5 GM/DL 06/07/2023 5:01 AM [facility] RDW 16.8(H) 11.7 - 14.9 % 06/07/2023 5:01 AM [facility] Platelets 506(H) 163 - 369 K/CU MM 06/07/2023 5:01 AM [facility] MPV 9.2(L) 9.4 - 12.4 fL 06/07/2023 5:01 AM [facility] Blood Venipuncture / Unknown 06/07/2023 4:29 AM EST 06/07/2023 4:44 AM EST us Amarilis Rojas APRN LAB BLOOD ORDERABLES Final Result [facility] [address] [place] [address], [facility] [phone] * CARDIAC CATH - LEFT HEART CATH W/ POSSIBLE INTERVENTION (06/06/2023 2:59 PM EST) Anatomical Region Laterality Modality Heart Other 06/06/2023 2:19 PM EST Narrative 06/06/2023 3:27 PM EST Cardiac Diagnostic + PCI Report Demographics Patient Name ? ISABEL Rios ??Date of ?1965 Patient # ?[id number] ?Accession # ?[id number] ?Medical Record # Physician ?CHRISTOPHER KHALIL ?? Date of Study ?06/06/2023 ?MD Referring ?Interventional Physician ?physician Procedure Procedure Type Diagnostic procedure: LHC/Coronaries w/wo LV gram PCI procedure: Stent - MART, PTCA Conclusions Procedure Description Patient was brought to Cardiac Catheterization Lab. Informed consent was obtained and risk and benefits were discussed with patient. A 6 German sheath was placed in the Right Radial Artery. IA Nitroglycerin and IV Heparin were given. Catheters were advanced retrograde to selectively engage the Right Coronary Artery and Left Coronary Artery system for selective Coronary Angiography and LHC. Left ventricular angiography was not performed. A pullback was performed to assess for gradient. Percutaneous coronary intervention was performed of the middle-distal circumflex. The patient was taking aspirin and ticagrelor prior to the procedure and heparin was given to acheive a therapeutic ACT. The coronary artery was engaged and the lesion was crossed using the guide catheter and wire listed below. Angioplasty was performed using the balloon listed below. Next, the indicated stent was deployed across the lesion at the inflation pressure indicated. Post-dilation was not performed. Angiography showed an good result. There was ostial compromise of a small-moderate OM by the stent but TIMI3 flow maintained. Catheters and the sheath were removed and a radial compression band was applied with good hemostasis. Conscious sedation was administered by me throughout the procedure. See procedure log for specific medications and doses. Procedure Summary NSTEMI due to middle-distal circumflex stenosis and unstable plaque. Successfull MART to middle-distal circumflex. Recommendations Indefinite DAPT. Smoking cessation and other risk factor reduction, recommended. Angiographic Findings Coronary Arteries and Lesion Findings LMCA: Normal. LAD: Mild plaque in the middle segment without significant stenosis. LCx: Middle to distal segment long plaque with haziness and stenosis 70-90%. A small-medium OM emerges from the diseased segment just proximal to the region of most severe stenosis. ??Lesion on Mid CX: Mid subsection.85% stenosis 22 mm length reduced to 0%. ??Pre procedure REED III flow was noted. Post Procedure REED III flow was ??present. The guidewire cross was successful.Good run off was present.The ??lesion was diagnosed as a moderate risk lesion.Culprit lesion. ??Devices used ??- Emerge Balloon MR 2.5x15. 1 inflation(s) to a max pressure of: 10 ??eboni. ??- Synergy XD MR US 3.0x28 Stent. 1 inflation(s) to a max pressure of: ??14 eboni. RCA: Middle segment diffuse plaque with mild stenosis 25-50%. Distal segment pre-existing stent is patent. Procedure Data Procedure Date Date: 06/06/2023Start: 14:19End: 15:04 Entry Locations ??- Retrograde Percutaneous access was performed through the Right Radial ?artery. A 6 Fr sheath was inserted. Hemostasis was successfully obtained ?using Radial Band. Closure Comments: 15 ml''s of air added.. Procedure Medications ??- Fentanyl I.V. 50 mcg. ??- Versed I.V. 2 mg. ??- Heparin I.V. 3000 units. ??- Nitroglycerin . ??- Fentanyl I.V. 50 mcg. ??- Heparin I.V. 7000 units. ??- Cardene I.V. 1.25 mg. Diagnostic Catheters ??- A5FR Radial TIG 4.0 [id number] used for: pressure measurement. Contrast Material ??- [id number] ml Fluoroscopy Time: Total: 5:48 minutes. Fluoroscopy Dose: Total: 393 mGy. Estimated Blood Loss: 5 ml. Medical History Allergies ??- No known allergies. Risk Factors The patient risk factors include:hypertension, last creatinine: 1.5 mg/dl, creatinine clearance: 55.46 ml/min, dyslipidemia and former tobacco use. Hemodynamics Condition: Baseline O2 Consumption: Estimated: 233.75Heart Rate: 69 bpm Pressures (mmHg) +-----+ + !Site !Pressure ?! +-----+ + !LV ?? !102/0 ,3 ?! +-----+ + !LV ?? !102/1 ,2 ?! +-----+ + !AO ?? !97/61 (76) ?! +-----+ + !LV ?? !104/0 ,1 ?! +-----+ + !AO ?? !102/61 (78) ? ! +-----+ + !AO ?? !123/73 (95) ? ! +-----+ + !AO ?? !199/87 (131) ?! +-----+ + Valve Gradients and Areas + +---------+---------+---------+ +---------+ + !Valve ?!Peak ? !Mean ? !Area ? !Index ? !Flow ? !Source ? ! + +---------+---------+---------+ +---------+ + !Aortic ? !7 ?!0 ?! ? ! ?! ? ! ? ! + +---------+---------+---------+ +---------+ + !Aortic ? !7 ?!0 ?! ? ! ?! ? ! ? ! + +---------+---------+---------+ +---------+ + Shunts Oxygen Values O2 Consumption 233.75 Signatures Procedure Note Christopher Khalil MD - 06/06/2023 Cardiac Diagnostic + PCI Report Demographics Patient Name ISABEL Rios Date of Birth1965 Patient # [id number] Medical Record # Physician CHRISTOPHER KHALIL Date of Study06/06/2023 Referring Interventional Physician physician Procedure Procedure Type Diagnostic procedure: LHC/Coronaries w/wo LV gram PCI procedure: Stent - MART, PTCA Conclusions Procedure Description Patient was brought to Cardiac Catheterization Lab. Informed consent was obtained and risk and benefits were discussed with patient. A 6 German sheath was placed in the Right Radial Artery. IA Nitroglycerin and IV Heparin were given. Catheters were advanced retrograde to selectivelyengage the Right Coronary Artery and Left Coronary Artery system for selective Coronary Angiography and LHC. Left ventricular angiography was not performed. A pullback was performed to assess for gradient. Percutaneous coronary intervention was performed of the middle-distal circumflex. The patient was taking aspirin and ticagrelor prior to the procedure and heparin was given to acheive a therapeutic ACT. Thecoronary artery was engaged and the lesion was crossed using the guide catheterand wire listed below. Angioplasty was performed using the balloon listedbelow. Next, the indicated stent was deployed across the lesion at theinflation pressure indicated. Post-dilation was not performed. Angiography showedan good result. There was ostial compromise of a small-moderate OM by thestent but TIMI3 flow maintained. Catheters and the sheath were removed and a radial compression band was applied with good hemostasis. Conscious sedation was administered by me throughout the procedure. See procedure log for specific medications and doses. Procedure Summary NSTEMI due to middle-distal circumflex stenosis and unstable plaque. Successfull MART to middle-distal circumflex. Recommendations Indefinite DAPT. Smoking cessation and other risk factor reduction, recommended. Angiographic Findings Coronary Arteries and Lesion Findings LMCA: Normal. LAD: Mild plaque in the middle segment without significant stenosis. LCx: Middle to distal segment long plaque with haziness and [id number]%. A small-medium OM emerges from the diseased segment just proximal to the region of most severe stenosis. Lesion on Mid CX: Mid subsection.85% stenosis 22 mm length reduced to0%. Pre procedure REED III flow was noted. Post Procedure REED III flowwas present. The guidewire cross was successful.Good run off waspresent.The lesion was diagnosed as a moderate risk lesion.Culprit lesion. Devices used - Emerge Balloon MR 2.5x15. 1 inflation(s) to a max pressure of: 10 eboni. - Synergy XD MR US 3.0x28 Stent. 1 inflation(s) to a max pressure of: 14 eboni. RCA: Middle segment diffuse plaque with mild stenosis 25-50%. Distalsegment pre-existing stent is patent. Procedure Data Procedure Date Date: 06/06/2023Start: 14:19End: 15:04 Entry Locations - Retrograde Percutaneous access was performed through the RightRadial artery. A 6 Fr sheath was inserted. Hemostasis was successfullyobtained using Radial Band. Closure Comments: 15 ml''s of air added.. Procedure Medications - Fentanyl I.V. 50 mcg. - Versed I.V. 2 mg. - Heparin I.V. 3000 units. - Nitroglycerin . - Fentanyl I.V. 50 mcg. - Heparin I.V. 7000 units. - Cardene I.V. 1.25 mg. Diagnostic Catheters - A5FR Radial TIG 4.0 [id number] used for: pressure measurement. Contrast Material - Occcejqym64 ml Fluoroscopy Time: Total: 5:48 minutes. Fluoroscopy Dose: Total: 393 mGy. Estimated Blood Loss: 5 ml. Medical History Allergies - No known allergies. 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 Hemodynamics Condition: Baseline O2 Consumption: Estimated: 233.75Heart Rate: 69 bpm Pressures (mmHg) +-----+ + !Site !Pressure! +-----+ + !LV !102/0 ,3! +-----+ + !LV !102/1 ,2! +-----+ + !AO !97/61 (76)! +-----+ + !LV !104/0 ,1! +-----+ + !AO !102/61 (78)! +-----+ + !AO !123/73 (95)! +-----+ + !AO !199/87 (131)! +-----+ + Valve Gradients and Areas + +---------+---------+---------+ +---------+ + !Valve !Peak !Mean !Area !Index !Flow !Source! + +---------+---------+---------+ +---------+ + !Aortic !7 !0 ! ! ! !! + +---------+---------+---------+ +---------+ + !Aortic !7 !0 ! ! ! !! + +---------+---------+---------+ +---------+ + Shunts Oxygen Values O2 Consumption 233.75 Signatures Christopher Khalil MD CV CARDIAC CATH ORDERABLES Final Result * (ABNORMAL) POC ACTIVATED CLOTTING TIME (06/06/2023 2:45 PM EST) Activated Clotting Time 379(H) 74 - 137 sec 06/06/2023 11:25 PM EST [facility] Collection Officer [id number] 06/06/2023 11:25 PM EST [facility] Blood 06/06/2023 2:45 PM EST 06/06/2023 11:25 PM EST Narrative [facility] - 06/06/2023 11:25 PM EST Collection Officer ID is - [id number] Raz Carmichael MD POINT OF CARE TEST ORDERABLES F inal Result Performing Organization Address City/State/[facility] Co de Phone Number [facility] [address] [phone] * NM myocardial perfusion SPECT (at rest) (06/06/2023 1:42 PM EST) Anatomical Region Laterality Modality Heart Nuclear Medicine Narrative 06/06/2023 3:23 PM EST The patient was intended for a full stress test however developed chest pain just before the initiation of the stress test and therefore I asked the science technicians to inject him to assess myocardial perfusion while the patient is experiencing chest pain. ??Of note, At baseline the patient had normal sinus rhythm, with no EKG changes suggestive of ischemia, or ventricular dysrhythmia noted during his chest pain episode Nuclear scan: There appears to be a within normal myocardial perfusion with no clear reversibility to suggest ischemia however some noticeable motion artifact No ejection fraction was done Impression No clear ischemia on this perfusion scan Anna Ambriz APRN IMG NM ORDERABLES Final Resul t * ECG 12 lead (06/06/2023 11:13 AM EST) Pathologist [facility] VENTRICULAR RATE EKG/MIN 74 BPM GE MUSE ATRIAL RATE (MCT) 74 BPM GE MUSE [place] Interval 152 ms GE MUSE QRS-INTERVAL (MSEC) 86 ms GE MUSE QT Interval 400 ms GE MUSE QTC Interval 444 ms GE MUSE P [place] 76 degrees GE MUSE R AXIS (MCT) 25 degrees GE MUSE T Wave [place] -16 degrees GE MUSE [place] Diagnosis Normal sinus rhythm Nonspecific ST abnormality Abnormal ECG When compared with ECG of 03-JUN-2023 09:54, aberrant conduction is no longer present T wave inversion now evident in Inferior leads Nonspecific T wave abnormality no longer evident in Lateral leads Confirmed by Ailyn ROMERO NEZAR ([id number]), make up editor MARIA D ALCALA ([id number]) on 06/08/2023 10:44:21 AM GE MUSE 06/06/2023 11:1 3 AM EST 06/08/2023 10:44 AM EST Raz Carmichael MD ECG ORDERABLES Final Result GE MUSE * (ABNORMAL) CBC with automated diff (06/06/2023 5:48 AM EST) [facility] WBC 9.0 3.6 - 9.5 K/??L 06/06/2023 6:43 AM EST [facility] RBC 4.81 4.20 - 5.70 M/??L 06/06/2023 6:43 AM EST [facility] Hemoglobin 11.7(L) 13.7 - 17.5 GM/DL 06/06/2023 6:43 AM EST [facility] Hematocrit 37.7(L) 40.0 - 51.0 % 06/06/2023 6:43 AM [facility] MCV 78(L) 79 - 95 fL 06/06/2023 6:43 AM [facility] MCH 24.3(L) 25.6 - 32.2 pg 06/06/2023 6:43 AM [facility] MCHC 31.0(L) 32.2 - 36.5 GM/DL 06/06/2023 6:43 AM [facility] RDW 16.6(H) 11.7 - 14.9 % 06/06/2023 6:43 AM [facility] Platelets 575(H) 163 - 369 K/CU MM 06/06/2023 6:43 AM [facility] MPV 9.6 9.4 - 12.4 fL 06/06/2023 6:43 AM [facility] % Neutros 67 34 - 71 % 06/06/2023 6:43 AM [facility] % Lymphs 20 19 - 53 % 06/06/2023 6:43 AM [facility] % Monos 9 3 - 9 % 06/06/2023 6:43 AM [facility] % Eos 4(H) 0 - 1 % 06/06/2023 6:43 AM [facility] % Baso 1 0 - 2 % 06/06/2023 6:43 AM [facility] NRBC Absolute 0.00 0 - 0.12 K/ul 06/06/2023 6:43 AM [facility] # Neutros 6.01 1.56 - 6.13 K/??L 06/06/2023 6:43 AM [facility] # Lymphs 1.76 1.00 - 3.50 K/??L 06/06/2023 6:43 AM [facility] # Monos 0.79 0.16 - 1.00 K/??L 06/06/2023 6:43 AM [facility] # Eos 0.36 0.00 - 0.80 K/??L 06/06/2023 6:43 AM [facility] # Baso 0.06 0.00 - 0.20 K/??L 06/06/2023 6:43 AM [facility] Immature Granulocytes-Re lative 0.40 0.00 - 0.60 % 06/06/2023 6:43 AM [facility] # IG 0.04 0.00 - 0.05 K/uL 06/06/2023 6:43 AM [facility] Blood Venipuncture / Unknown 06/06/2023 5:48 AM EST 06/06/2023 6:27 AM EST [facility] - 06/06/2023 6:43 AM EST When CBC w/ Auto Diff is ordered the lab will add a Manual Differential as a quality check at no additional charge if: Lymphocytes greater than seventy five percent with normal or increased WBC Monocytes greater than Fifteen percent Basophil greater than four percent Bands >10% or several immature myeloids are seen on scan Blast? Flag noted Atypical Lymph flag noted us Shaina Fulton DO LAB BLOOD ORDERABLES Final Resu lt Performing Organization Address City/State/[facility] Co de Phone Number [facility] [address] [phone] * (ABNORMAL) Basic Metabolic Panel (06/06/2023 5:48 AM EST) Sodium 137 136 - 146 meq/L 06/06/2023 7:09 AM [facility] Potassium 4.1 3.5 - 5.1 meq/L 06/06/2023 7:09 AM [facility] Chloride 105 102 - 112 meq/L 06/06/2023 7:09 AM [facility] CO2 28 21 - 32 meq/L 06/06/2023 7:09 AM [facility] Anion Gap 8(L) 9 - 20 06/06/2023 7:09 AM [facility] BUN 17 7 - 22 mg/dL 06/06/2023 7:09 AM [facility] Creatinine 1.58(H) 0.70 - 1.30 mg/dL 06/06/2023 7:09 AM [facility] BUN/Creatinine 11 8 - 20 06/06/2023 7:09 AM [facility] Glucose 96 74 - 106 mg/dL 06/06/2023 7:09 AM [facility] Calcium 9.0 8.4 - 10.1 mg/dL 06/06/2023 7:09 AM [facility] Osmolality Calc 275.2 7:09 AM [facility] eGFR (mL/min/1.73m2) 50(L) >=60 mL/min/1.7 3m2 06/06/2023 7:09 AM [facility] Comment:eGFR of <60 suggests chronic kidney disease if found over a 3 month period of time. eGFR <15 indicates renal failure. Blood Venipuncture / Unknown 06/06/2023 5:48 AM EST 06/06/2023 6:27 AM EST Chaitanya Blum MD LAB BLOOD ORDERABLES Final Re sult Performing Organization Address [facility]/ZIP Co de Phone Number [facility] [address] [phone] * (ABNORMAL) PTT Heparin Protocol (06/06/2023 5:48 AM EST) PTT Heparin 37.9(L) 45 - 65 seconds 06/06/2023 7:31 AM [facility] Blood Venipuncture / Unknown 06/06/2023 5:48 AM EST 06/06/2023 6:27 AM EST us Christopher Weber PA-C LAB BLOOD ORDERABLES Final Result Performing Organization Address City/[facility]/ZIP Co de Phone Number [facility] [address] [phone] * (ABNORMAL) CBC with automated diff (06/05/2023 10:07 PM EST) WBC 10.4(H) 3.6 - 9.5 K/??L 06/05/2023 10:28 PM [facility] RBC 4.65 4.20 - 5.70 M/??L 06/05/2023 10:28 PM [facility] Hemoglobin 11.4(L) 13.7 - 17.5 GM/DL 06/05/2023 10:28 PM [facility] Hematocrit 36.3(L) 40.0 - 51.0 % 06/05/2023 10:28 PM [facility] MCV 78(L) 79 - 95 fL 06/05/2023 10:28 PM [facility] MCH 24.5(L) 25.6 - 32.2 pg 06/05/2023 10:28 PM [facility] MCHC 31.4(L) 32.2 - 36.5 GM/DL 06/05/2023 10:28 PM [facility] RDW 17.0(H) 11.7 - 14.9 % 06/05/2023 10:28 PM [facility] Platelets 570(H) 163 - 369 K/CU MM 06/05/2023 10:28 PM [facility] MPV 9.4 9.4 - 12.4 fL 06/05/2023 10:28 PM [facility] % Neutros 60 34 - 71 % 06/05/2023 10:28 PM [facility] % Lymphs 25 19 - 53 % 06/05/2023 10:28 PM [facility] % Monos 10(H) 3 - 9 % 06/05/2023 10:28 PM [facility] % Eos 4(H) 0 - 1 % 06/05/2023 10:28 PM [facility] % Baso 1 0 - 2 % 06/05/2023 10:28 PM [facility] NRBC Absolute 0.00 0 - 0.12 K/ul 06/05/2023 10:28 PM [facility] # Neutros 6.20(H) 1.56 - 6.13 K/??L 06/05/2023 10:28 PM [facility] # Lymphs 2.64 1.00 - 3.50 K/??L 06/05/2023 10:28 PM [facility] # Monos 1.02(H) 0.16 - 1.00 K/??L 06/05/2023 10:28 PM EST [facility] # Eos 0.45 0.00 - 0.80 K/??L 06/05/2023 10:28 PM EST [facility] # Baso 0.07 0.00 - 0.20 K/??L 06/05/2023 10:28 PM EST [facility] Immature Granulocytes-Re lative 0.30 0.00 - 0.60 % 06/05/2023 10:28 PM EST [facility] # IG 0.03 0.00 - 0.05 K/uL 06/05/2023 10:28 PM EST [facility] Blood Venipuncture / Unknown 06/05/2023 10:07 PM EST 06/05/2023 10:22 PM EST Narrative [facility] - 06/05/2023 10:28 PM EST When CBC w/ Auto Diff is ordered the lab will add a Manual Differential as a quality check at no additional charge if: Lymphocytes greater than seventy five percent with normal or increased WBC Monocytes greater than Fifteen percent Basophil greater than four percent Bands >10% or several immature myeloids are seen on scan Blast? Flag noted Atypical Lymph flag noted us Shaina Fulton DO LAB BLOOD ORDERABLES Final Resu lt [facility] [address] [phone] * (ABNORMAL) PTT Heparin Protocol (06/05/2023 10:07 PM EST) PTT Heparin 99.5(HH) 45 - 65 seconds 06/05/2023 10:40 PM EST [facility] Blood Venipuncture / Unknown 06/05/2023 10:07 PM EST 06/05/2023 10:22 PM EST us Chaitanya Blum MD LAB BLOOD ORDERABLES Final Re sult Performing Organization Address City/[facility]/ZIP Co de Phone Number [facility] [address] [phone] * (ABNORMAL) PTT Heparin Protocol (06/05/2023 3:46 PM EST) PTT Heparin 41.9(L) 45 - 65 seconds 06/05/2023 4:20 PM EST [facility] Blood Venipuncture / Unknown 06/05/2023 3:46 PM EST 06/05/2023 3:58 PM EST us Chaitanya Blum MD LAB BLOOD ORDERABLES Final Re sult Performing Organization Address City/[facility]/ZIP Co de Phone Number [facility] [address] [phone] * PTT Heparin Protocol (06/05/2023 9:48 AM EST) PTT Heparin 47.4 45 - 65 seconds 06/05/2023 10:20 AM EST [facility] Blood Venipuncture / Unknown 06/05/2023 9:48 AM EST 06/05/2023 10:04 AM EST Chaitanya Blum MD LAB BLOOD ORDERABLES Final Re sult Performing Organization Address [facility] Co de Phone Number [facility] [address] [phone] * (ABNORMAL) PTT Heparin Protocol (06/05/2023 6:36 AM EST) PTT Heparin 130.2(HH) 45 - 65 seconds 06/05/2023 7:34 AM EST [facility] Blood Venipuncture / Unknown 06/05/2023 6:36 AM EST 06/05/2023 6:56 AM EST us Narendra Hu DO LAB BLOOD ORDERABLES Final Res ult Performing Organization Address City/[facility]/ZIP Co de Phone Number [facility] [address] [phone] * (ABNORMAL) CBC with automated diff (06/05/2023 4:19 AM [facility]) WBC 7.1 3.6 - 9.5 K/??L 06/05/2023 5:11 AM [facility] RBC 4.64 4.20 - 5.70 M/??L 06/05/2023 5:11 AM [facility] Hemoglobin 11.2(L) 13.7 - 17.5 GM/DL 06/05/2023 5:11 AM [facility] Hematocrit 36.7(L) 40.0 - 51.0 % 06/05/2023 5:11 AM [facility] MCV 79 79 - 95 fL 06/05/2023 5:11 AM [facility] MCH 24.1(L) 25.6 - 32.2 pg 06/05/2023 5:11 AM [facility] MCHC 30.5(L) 32.2 - 36.5 GM/DL 06/05/2023 5:11 AM [facility] RDW 17.0(H) 11.7 - 14.9 % 06/05/2023 5:11 AM [facility] Platelets 550(H) 163 - 369 K/CU MM 06/05/2023 5:11 AM [facility] MPV 9.5 9.4 - 12.4 fL 06/05/2023 5:11 AM [facility] % Neutros 59 34 - 71 % 06/05/2023 5:11 AM [facility] % Lymphs 25 19 - 53 % 06/05/2023 5:11 AM [facility] % Monos 10(H) 3 - 9 % 06/05/2023 5:11 AM [facility] % Eos 4(H) 0 - 1 % 06/05/2023 5:11 AM [facility] % Baso 1 0 - 2 % 06/05/2023 5:11 AM [facility] NRBC Absolute 0.00 0 - 0.12 K/ul 06/05/2023 5:11 AM [facility] # Neutros 4.23 1.56 - 6.13 K/??L 06/05/2023 5:11 AM EST [facility] # Lymphs 1.79 1.00 - 3.50 K/??L 06/05/2023 5:11 AM EST [facility] # Monos 0.72 0.16 - 1.00 K/??L 06/05/2023 5:11 AM EST [facility] # Eos 0.30 0.00 - 0.80 K/??L 06/05/2023 5:11 AM EST [facility] # Baso 0.05 0.00 - 0.20 K/??L 06/05/2023 5:11 AM [facility] Immature Granulocytes-Re lative 0.60 0.00 - 0.60 % 06/05/2023 5:11 AM [facility] # IG 0.04 0.00 - 0.05 K/uL 06/05/2023 5:11 AM [facility] Blood Venipuncture / Unknown 06/05/2023 4:19 AM EST 06/05/2023 5:00 AM EST Narrative [facility] - 06/05/2023 5:11 AM EST When CBC w/ Auto Diff is ordered the lab will add a Manual Differential as a quality check at no additional charge if: Lymphocytes greater than seventy five percent with normal or increased WBC Monocytes greater than Fifteen percent Basophil greater than four percent Bands >10% or several immature myeloids are seen on scan Blast? Flag noted Atypical Lymph flag noted us Shaina Fulton DO LAB BLOOD ORDERABLES Final Resu lt [facility] [address] [phone] * (ABNORMAL) Basic Metabolic Panel (06/05/2023 4:19 AM EST) Sodium 137 136 - 146 meq/L 06/05/2023 6:48 AM [facility] Potassium 3.9 3.5 - 5.1 meq/L 06/05/2023 6:48 AM [facility] Chloride 105 102 - 112 meq/L 06/05/2023 6:48 AM [facility] CO2 28 21 - 32 meq/L 06/05/2023 6:48 AM [facility] Anion Gap 8(L) 9 - 20 06/05/2023 6:48 AM [facility] BUN 16 7 - 22 mg/dL 06/05/2023 6:48 AM [facility] Creatinine 1.58(H) 0.70 - 1.30 mg/dL 06/05/2023 6:48 AM [facility] BUN/Creatinine 10 8 - 20 06/05/2023 6:48 AM [facility] Glucose 88 74 - 106 mg/dL 06/05/2023 6:48 AM [facility] Calcium 9.2 8.4 - 10.1 mg/dL 06/05/2023 6:48 AM [facility] Osmolality Calc 274.4 6:48 AM [facility] eGFR (mL/min/1.73m2) 50(L) >=60 mL/min/1.7 3m2 06/05/2023 6:48 AM [facility] Comment:eGFR of <60 suggests chronic kidney disease if found over a 3 month period of time. eGFR <15 indicates renal failure. Blood Venipuncture / Unknown 06/05/2023 4:19 AM EST 06/05/2023 6:27 AM EST us Chaitanya Blum MD LAB BLOOD ORDERABLES Final Re sult Performing Organization Address City/State/[facility] Co de Phone Number [facility] [address] [phone] * (ABNORMAL) PTT Heparin Protocol (06/05/2023 4:19 AM EST) PTT Heparin 126.3(HH) 45 - 65 seconds 06/05/2023 5:34 AM [facility] Blood Venipuncture / Unknown 06/05/2023 4:19 AM EST 06/05/2023 5:01 AM EST us Chaitanya Blum MD LAB BLOOD ORDERABLES Final Re sult [facility] [address] [place] [address], [facility] [phone] * Magnesium (06/04/2023 8:35 AM EST) Magnesium 2.0 1.5 - 2.4 mg/dL 06/04/2023 9:21 AM EST [facility] Blood Venipuncture / Unknown 06/04/2023 8:35 AM EST 06/04/2023 8:53 AM EST us Samy Kulkarni MD LAB BLOOD ORDERABLES Sharyn l Result Performing Organization Address [facility]/ZIP Co de Phone Number [facility] [address] [phone] * (ABNORMAL) Lipid panel (06/04/2023 8:35 AM EST) Pathologist [facility] Triglycerides 117 0 - 249 mg/dL 06/04/2023 9:21 AM [facility] Cholesterol 235(H) 0 - 199 mg/dL 06/04/2023 9:21 AM [facility] Comment: 200 to 239 mg/dL = ??Moderate (borderline) >239 mg/dL ? = ??High HDL 53 >=40 mg/dL 06/04/2023 9:21 AM [facility] Comment: >=60 mg/dL = Desirable <40 mg/dL ??= Increased Risk All other components are listed individually or are calculations VLDL 23.4 5 - 40 mg/dL 06/04/2023 9:21 AM [facility] Cholesterol/HDL ratio 4.3(H) 0.0 - 3.2 06/04/2023 9:21 AM [facility] LDl/HDL Ratio 3 0 - 4 06/04/2023 9:21 AM [facility] RISK COMP 4 06/04/2023 9:21 AM [facility] LDL Cholesterol, Calculated 157(H) 0 - 99 mg/dL 06/04/2023 9:21 AM [facility] Blood Venipuncture / Unknown 06/04/2023 8:35 AM EST 06/04/2023 8:53 AM EST us Samy Kulkarni MD LAB BLOOD ORDERABLES Sharyn bhakta Result [facility] [address] [phone] * (ABNORMAL) Basic Metabolic Panel (06/04/2023 8:35 AM EST) Sodium 138 136 - 146 meq/L 06/04/2023 9:21 AM [facility] Potassium 4.4 3.5 - 5.1 meq/L 06/04/2023 9:21 AM [facility] Chloride 103 102 - 112 meq/L 06/04/2023 9:21 AM [facility] CO2 31 21 - 32 meq/L 06/04/2023 9:21 AM [facility] Anion Gap 8(L) 9 - 20 06/04/2023 9:21 AM [facility] BUN 13 7 - 22 mg/dL 06/04/2023 9:21 AM [facility] Creatinine 1.70(H) 0.70 - 1.30 mg/dL 06/04/2023 9:21 AM [facility] BUN/Creatinine 8 8 - 20 06/04/2023 9:21 AM [facility] Glucose 106 74 - 106 mg/dL 06/04/2023 9:21 AM [facility] Calcium 9.7 8.4 - 10.1 mg/dL 06/04/2023 9:21 AM [facility] Osmolality Calc 276.2 9:21 AM [facility] eGFR (mL/min/1.73m2) 46(L) >=60 mL/min/1.7 3m2 06/04/2023 9:21 AM [facility] Comment:eGFR of <60 suggests chronic kidney disease if found over a 3 month period of time. eGFR <15 indicates renal failure. Blood Venipuncture / Unknown 06/04/2023 8:35 AM EST 06/04/2023 8:53 AM EST us Samy Kulkarni MD LAB BLOOD ORDERABLES Sharyn bhakta Result Performing Organization Address [facility] de Phone Number [facility] [address] [phone] * PTT Heparin Protocol (06/04/2023 8:34 AM EST) PTT Heparin 58.9 45 - 65 seconds 06/04/2023 9:07 AM EST [facility] Blood Venipuncture / Unknown 06/04/2023 8:34 AM EST 06/04/2023 8:53 AM EST Samy Kulkarni MD LAB BLOOD ORDERABLES Sharyn l Result Performing Organization Address [facility] Phone Number [facility] [address] [phone] * (ABNORMAL) High Sensitivity Troponin I (06/04/2023 8:34 AM EST) [facility] Troponin I High Sensitivity (pg/mL) 233.4(H) 3 - 58.8 pg/mL 06/04/2023 9:19 AM EST [facility] Comment: Troponin Result (pg/mL) ? *Interpretation 3-58.8 ? *Normal; less than 99th percentile of normal range >58.8 ?*Abnormal; greater than 99th percentile of normal range The Troponin I test methodology changed. Reporting units are now pg/mL instead of the previously used ng/mL: ??Normal reference ranges, critical cutoffs, specimen type, and comments have changed. ??*See the test change alert bulletin* To determine if a patient is experiencing an AMI with Troponin I, High Sensitivity it is important to use the assay in conjunction with patient presentation, clinical suspicion, and a serial-collection protocol. Biotin specimen concentration >300 ng/mL may lead to falsely depressed results for patient samples. ??Do not use this test for renal dysfunction patients (eGFR <60) unless it is confirmed that the patient is not taking Biotin. Blood Venipuncture / Unknown 06/04/2023 8:34 AM EST 06/04/2023 8:53 AM EST us Savanah Elizabeth PA-C LAB BLOOD ORDERABLES Fin al Result Performing Organization Address City/State/[facility] Co de Phone Number [facility] [address] [place] [address] * (ABNORMAL) CBC with automated diff (06/04/2023 8:34 AM EST) WBC 8.4 3.6 - 9.5 K/??L 06/04/2023 9:03 AM [facility] RBC 4.79 4.20 - 5.70 M/??L 06/04/2023 9:03 AM [facility] Hemoglobin 11.7(L) 13.7 - 17.5 GM/DL 06/04/2023 9:03 AM [facility] Hematocrit 37.8(L) 40.0 - 51.0 % 06/04/2023 9:03 AM [facility] MCV 79 79 - 95 fL 06/04/2023 9:03 AM [facility] MCH 24.4(L) 25.6 - 32.2 pg 06/04/2023 9:03 AM [facility] MCHC 31.0(L) 32.2 - 36.5 GM/DL 06/04/2023 9:03 AM [facility] RDW 16.9(H) 11.7 - 14.9 % 06/04/2023 9:03 AM [facility] Platelets 622(H) 163 - 369 K/CU MM 06/04/2023 9:03 AM [facility] MPV 9.1(L) 9.4 - 12.4 fL 06/04/2023 9:03 AM [facility] % Neutros 67 34 - 71 % 06/04/2023 9:03 AM [facility] % Lymphs 21 19 - 53 % 06/04/2023 9:03 AM [facility] % Monos 8 3 - 9 % 06/04/2023 9:03 AM [facility] % Eos 4(H) 0 - 1 % 06/04/2023 9:03 AM [facility] % Baso 1 0 - 2 % 06/04/2023 9:03 AM [facility] NRBC Absolute 0.00 0 - 0.12 K/ul 06/04/2023 9:03 AM [facility] # Neutros 5.61 1.56 - 6.13 K/??L 06/04/2023 9:03 AM [facility] # Lymphs 1.78 1.00 - 3.50 K/??L 06/04/2023 9:03 AM [facility] # Monos 0.66 0.16 - 1.00 K/??L 06/04/2023 9:03 AM [facility] # Eos 0.30 0.00 - 0.80 K/??L 06/04/2023 9:03 AM [facility] # Baso 0.07 0.00 - 0.20 K/??L 06/04/2023 9:03 AM [facility] Immature Granulocytes-Re lative 0.20 0.00 - 0.60 % 06/04/2023 9:03 AM [facility] # IG 0.02 0.00 - 0.05 K/uL 06/04/2023 9:03 AM [facility] Blood Venipuncture / Unknown 06/04/2023 8:34 AM EST 06/04/2023 8:53 AM EST Narrative [facility] - 06/04/2023 9:03 AM EST When CBC w/ Auto Diff is ordered the lab will add a Manual Differential as a quality check at no additional charge if: Lymphocytes greater than seventy five percent with normal or increased WBC Monocytes greater than Fifteen percent Basophil greater than four percent Bands >10% or several immature myeloids are seen on scan Blast? Flag noted Atypical Lymph flag noted Samy Kulkarni MD LAB BLOOD ORDERABLES Sharyn bhakta Result Performing Organization Address City/[facility]/ZIP Co de Phone Number [facility] [address] [phone] * PTT Heparin Protocol (06/04/2023 12:18 AM EST) [facility] PTT Heparin 54.1 45 - 65 seconds 06/04/2023 1:12 AM EST [facility] Blood Venipuncture / Unknown 06/04/2023 12:18 AM EST 06/04/2023 12:43 AM EST Samy Kulkarni MD LAB BLOOD ORDERABLES Sharyn bhakta Result Performing Organization Address [facility] Co de Phone Number [facility] [address] [phone] * (ABNORMAL) High Sensitivity Troponin I (06/03/2023 6:22 PM EST) [facility] Troponin I High Sensitivity (pg/mL) 420.2(H) 3 - 58.8 pg/mL 06/03/2023 7:19 PM EST [facility] Comment: Troponin Result (pg/mL) ? *Interpretation 3-58.8 ? *Normal; less than 99th percentile of normal range >58.8 ?*Abnormal; greater than 99th percentile of normal range The Troponin I test methodology changed. Reporting units are now pg/mL instead of the previously used ng/mL: ??Normal reference ranges, critical cutoffs, specimen type, and comments have changed. ??*See the test change alert bulletin* To determine if a patient is experiencing an AMI with Troponin I, High Sensitivity it is important to use the assay in conjunction with patient presentation, clinical suspicion, and a serial-collection protocol. Biotin specimen concentration >300 ng/mL may lead to falsely depressed results for patient samples. ??Do not use this test for renal dysfunction patients (eGFR <60) unless it is confirmed that the patient is not taking Biotin. Blood Venipuncture / Unknown 06/03/2023 6:22 PM EST 06/03/2023 6:49 PM EST Samy Kulkarni MD LAB BLOOD ORDERABLES Sharyn l Result Performing Organization Address [facility] Co de Phone Number [facility] [address] [place] [address] * PTT Heparin Protocol (06/03/2023 6:22 PM EST) PTT Heparin 53.2 45 - 65 seconds 06/03/2023 7:20 PM EST [facility] Blood Venipuncture / Unknown 06/03/2023 6:22 PM EST 06/03/2023 6:49 PM EST Samy uKlkarni MD LAB BLOOD ORDERABLES Sharyn l Result Performing Organization Address [facility] de Phone Number [facility] [address] [phone] * (ABNORMAL) High Sensitivity Troponin I (06/03/2023 12:50 PM EST) Troponin I High Sensitivity (pg/mL) 633.6(HH) 3 - 58.8 pg/mL 06/03/2023 1:17 PM EST [facility] Comment: Troponin Result (pg/mL) ? *Interpretation 3-58.8 ? *Normal; less than 99th percentile of normal range >58.8 ?*Abnormal; greater than 99th percentile of normal range The Troponin I test methodology changed. Reporting units are now pg/mL instead of the previously used ng/mL: ??Normal reference ranges, critical cutoffs, specimen type, and comments have changed. ??*See the test change alert bulletin* To determine if a patient is experiencing an AMI with Troponin I, High Sensitivity it is important to use the assay in conjunction with patient presentation, clinical suspicion, and a serial-collection protocol. Biotin specimen concentration >300 ng/mL may lead to falsely depressed results for patient samples. ??Do not use this test for renal dysfunction patients (eGFR <60) unless it is confirmed that the patient is not taking Biotin. Blood Venipuncture / Unknown 06/03/2023 12:50 PM EST 06/03/2023 12:54 PM EST us Shaina Fulton DO LAB BLOOD ORDERABLES Final Resu lt [facility] [address] [phone] * ECHO COMPLETE (DOPPLER / COLOR) W CONTRAST (06/03/2023 12:27 PM EST) Anatomical Region Laterality Modality Heart Vascular Ultraso und 06/03/2023 11:5 1 AM EST Narrative 06/04/2023 1:35 PM EST TRANSTHORACIC ECHOCARDIOGRAPHY REPORT Demographics Patient Name: ? ISABEL Rios ?? : ? 1965 Medical Record ?[id number] ? Age: ? 57 year(s) Number: Corporate ID Number: ??[id number] ? Gender ? Male Solutions Developer: ?Fior Olson [facility] Height: ?68 inches Referring Physician: ??SAMY KULKARNI ??Weight: ?163.01 pounds ? MD Interpreting ?DEBBY ROMERO MD ? BMI: ? 24.79 kg/m^2 Physician: Date of Service: ?06/03/2023 ? Blood ?147/77 mmHg ?Pressure: Room Number: ?ER 30 Type of Study: TTE procedure: ECHO COMPLETE (DOPPLER / COLOR) W OR WO CONTRAST. Patient Status: Routine IP Study Location: PortableTechnical Quality: Good visualization Impression: ######################################## Indication: chest pain R07.9 Technically difficult study due to patient body habitus. Optison ultrasound enhancing agent administered for endocardial border definition. Normal sized left ventricle. Normal left ventricular wall thickness. Visually estimated ejection fraction 50% +/- 5%. Normal left ventricular systolic function. Normal left ventricular diastolic function. No hemodynamically significant valvular heart disease. Mildly dilated aortic root. 3.7cm. ######################################## Measurements Summary: LVEDd: 4.38 cm ? LVESd: 3.22 cm ?IVSEd: 1.07 cm AO Root:3.73 cm ?LVPWd: 0.98 cm Contractility Score At rest the following contractility abnormalities were noted: Hypokinesis of the Mid infero-septal, the Apical septal and the Basal infero-septal segments. Contractility of all other segments appeared normal. LV regional wall motion: (0-Not visualized 1-Normal 2-Hypokinesis 3-Akinesis 4-Dyskinesis 5-Aneurysm) Left Ventricle Peak E-wave: 0.94 ?? Peak A-wave: 0.81 m/s ?? E/A ratio: 1.17 m/s ? Volume [id number] ?? LV length: 7.76 cm ml Volume zvnfkvfo07.62 ml LVOT diameter: 1.87 cm Normal sized left ventricle. Normal left ventricular wall thickness. Visually estimated ejection fraction 50% +/- 5%. Normal left ventricular systolic function. Unable to obtain bullseye average for strain due to irregular heart rhythm. Normal left ventricular diastolic function. No left ventricular masses or thrombi. Right Ventricle Diastolic dimension: 3.5 cm Normal sized right ventricle. Normal TAPSE c/w normal right ventricular function Left Atrium LA dimension: 2.7 cm ? LA volume:31.69 ml LA/Aorta: 0.72 Normal sized left atrium. Normal left atrial volume index Intact atrial septum. No atrial mass or thrombus. Right Atrium Normal sized right atrium. Intact atrial septum. No atrial mass or thrombus. Mitral Valve Deceleration time: 166.96 msec Thickened mitral valve chordae. Trace mitral regurgitation. No mitral stenosis. No masses or vegetations seen. Aortic Valve LVOT VTI: 23.53 cm Three cusped aortic valve Trace aortic regurgitation. No aortic stenosis. No masses or vegetations seen. Tricuspid Valve Structurally normal tricuspid valve. Trace tricuspid valve regurgitation. No tricuspid stenosis. No masses or vegetations seen. Pulmonic Valve Acceleration time: 101.5 msec Structurally normal pulmonic valve. Trace pulmonary valve regurgitation. No pulmonic stenosis. No masses or vegetations seen. Great Vessels Aorta Aortic Root: 3.73 cm LVOT Diameter: 1.87 cm Visualized aorta is normal. Mildly dilated aortic root. 3.7cm. No evidence of dissection. Normal IVC with appropriate collapse. Pericardium / Pleura No pericardial effusion. Procedure Note Debby Romero MD - 06/04/2023 TRANSTHORACIC ECHOCARDIOGRAPHY REPORT Demographics Patient Name: ISABEL Rios : 1965 Medical Record [id number] Age: 57 year(s) Number: Corporate ID Number: [id number] Gender Male Solutions Developer: Fior Olson [facility] Height: 68 inches Referring Physician: SAMY KULKARNI Weight: 163.01 pounds Interpreting DEBBY ROMERO MD BMI: 24.79 kg/m^2 Physician: Date of Service: 06/03/2023 Blood 147/77 mmHg Pressure: Room Number: ER 30 Type of Study: TTE procedure: ECHO COMPLETE (DOPPLER / COLOR) W OR WO CONTRAST. Patient Status: Routine IP Study Location: PortableTechnical Quality: Good visualization Impression: ######################################## Indication: chest pain R07.9 Technically difficult study due to patient body habitus. Optison ultrasound enhancing agent administered for endocardial border definition. Normal sized left ventricle. Normal left ventricular wall thickness. Visually estimated ejection fraction 50% +/- 5%. Normal left ventricular systolic function. Normal left ventricular diastolic function. No hemodynamically significant valvular heart disease. Mildly dilated aortic root. 3.7cm. ######################################## Measurements Summary: LVEDd: 4.38 cm LVESd: 3.22 cm IVSEd: 1.07 cm AO Root:3.73 cm LVPWd: 0.98 cm Contractility Score At rest the following contractility abnormalities were noted:Hypokinesis of the Mid infero-septal, the Apical septal and the Basal infero-septal segments. Contractility of all other segments appeared normal. LV regional wall motion: (0-Not visualized 1-Normal 2-Hypokinesis 3-Akinesis 4-Dyskinesis 5-Aneurysm) Left Ventricle Peak E-wave: 0.94 Peak A-wave: 0.81 m/s E/A ratio: 1.17 m/s Volume akqsruypq46.56 LV length: 7.76 cm ml Volume vhujdjcq97.62 ml LVOT diameter: 1.87 cm Normal sized left ventricle. Normal left ventricular wall thickness. Visually estimated ejection fraction 50% +/- 5%. Normal left ventricular systolic function. Unable to obtain bullseye average for strain due to irregular heart rhythm. Normal left ventricular diastolic function. No left ventricular masses or thrombi. Right Ventricle Diastolic dimension: 3.5 cm Normal sized right ventricle. Normal TAPSE c/w normal right ventricular function Left Atrium LA dimension: 2.7 cm LA volume:31.69 ml LA/Aorta: 0.72 Normal sized left atrium. Normal left atrial volume index Intact atrial septum. No atrial mass or thrombus. Right Atrium Normal sized right atrium. Intact atrial septum. No atrial mass or thrombus. Mitral Valve Deceleration time: 166.96 msec Thickened mitral valve chordae. Trace mitral regurgitation. No mitral stenosis. No masses or vegetations seen. Aortic Valve LVOT VTI: 23.53 cm Three cusped aortic valve Trace aortic regurgitation. No aortic stenosis. No masses or vegetations seen. Tricuspid Valve Structurally normal tricuspid valve. Trace tricuspid valve regurgitation. No tricuspid stenosis. No masses or vegetations seen. Pulmonic Valve Acceleration time: 101.5 msec Structurally normal pulmonic valve. Trace pulmonary valve regurgitation. No pulmonic stenosis. No masses or vegetations seen. Great Vessels Aorta Aortic Root: 3.73 cm LVOT Diameter: 1.87 cm Visualized aorta is normal. Mildly dilated aortic root. 3.7cm. No evidence of dissection. Normal IVC with appropriate collapse. Pericardium / Pleura No pericardial effusion. us Samy Kulkarni MD CV ECHO ORDERABLES Final Result * (ABNORMAL) PTT Heparin Protocol (06/03/2023 11:02 AM EST) PTT Heparin 27.2(L) 45 - 65 seconds 06/03/2023 11:21 AM EST [facility] Blood Venipuncture / Unknown 06/03/2023 11:02 AM EST 06/03/2023 11:05 AM EST us Shaina Fulton DO LAB BLOOD ORDERABLES Final Resu lt [facility] [address] [place], [place] [address] [phone] * Prothrombin time/INR (06/03/2023 11:02 AM EST) Protime 11.6 9.2 - 12.0 seconds 06/03/2023 11:21 AM [facility] INR 1.07 0.90 - 1.20 06/03/2023 11:21 AM [facility] Comment: Recommended therapeutic ranges using International Normalized Ratio (INR) are: INR RANGE 2.0 - 3.0 ? Routine oral anticoagulant therapy 2.5 - 3.5 ? Oral anticoagulant therapy for patients with thromboembolic events on standard doses of Coumadin and those with mechanical heart valves. Blood Venipuncture / Unknown 06/03/2023 11:02 AM EST 06/03/2023 11:05 AM EST us Shaina Fulton DO LAB BLOOD ORDERABLES Final Resu lt Performing Organization Address [facility]/ZIP Co de Phone Number [facility] [address] [phone] * (ABNORMAL) Ferritin (06/03/2023 10:26 AM EST) Ferritin 15.30(L) 26.00 - 388.00 ng/mL 06/03/2023 3:06 PM [facility] Blood Venipuncture / Unknown 06/03/2023 10:26 AM EST 06/03/2023 10:28 AM EST us Samy Kulkarni MD LAB BLOOD ORDERABLES Sharyn l Result Performing Organization Address City/[facility] Co de Phone Number [facility] [address] [phone] * Iron and TIBC (06/03/2023 10:26 AM EST) Iron 66.0 65.0 - 175.0 ug/dL 06/03/2023 3:06 PM [facility] TIBC 405 250 - 450 ug/dL 06/03/2023 3:06 PM [facility] % Saturation 16 15 - 55 % 06/03/2023 3:06 PM [facility] UIBC 339 06/03/2023 3:06 PM [facility] Blood Venipuncture / Unknown 06/03/2023 10:26 AM EST 06/03/2023 10:28 AM EST us Samy Kulkarni MD LAB BLOOD ORDERABLES Sharyn bhakta Result [facility] [address] [phone] * (ABNORMAL) Lipid panel (06/03/2023 10:26 AM EST) Triglycerides 207 0 - 249 mg/dL 06/03/2023 1:43 PM [facility] Cholesterol 206(H) 0 - 199 mg/dL 06/03/2023 1:43 PM [facility] Comment: 200 to 239 mg/dL = ??Moderate (borderline) >239 mg/dL ? = ??High HDL 42 >=40 mg/dL 06/03/2023 1:43 PM [facility] Comment: >=60 mg/dL = Desirable <40 mg/dL ??= Increased Risk All other components are listed individually or are calculations VLDL 41.4(H) 5 - 40 mg/dL 06/03/2023 1:43 PM [facility] Cholesterol/HDL ratio 4.9(H) 0.0 - 3.2 06/03/2023 1:43 PM [facility] LDl/HDL Ratio 3 0 - 4 06/03/2023 1:43 PM [facility] RISK COMP 5 06/03/2023 1:43 PM [facility] LDL Cholesterol, Calculated 123(H) 0 - 99 mg/dL 06/03/2023 1:43 PM [facility] Blood Venipuncture / Unknown 06/03/2023 10:26 AM EST 06/03/2023 10:28 AM EST us Savanah Elizabeth PA-C LAB BLOOD ORDERABLES Fin al Result [facility] [address] [phone] * (ABNORMAL) PROBNP (06/03/2023 10:26 AM EST) Pathologist [facility] ProBNP (pg/mL) 375(H) 0 - 125 pg/mL 06/03/2023 10:57 AM EST [facility] Blood Venipuncture / Unknown 06/03/2023 10:26 AM EST 06/03/2023 10:[address] [facility] BLOOD ORDERABLES Final Resu lt Performing Organization Address City/[facility]/ZIP Co de Phone Number [facility] [address] [phone] * Magnesium (06/03/2023 10:26 AM EST) [facility] Magnesium 1.9 1.5 - 2.4 mg/dL 06/03/2023 10:57 AM EST [facility] Blood Venipuncture / Unknown 06/03/2023 10:26 AM EST 06/03/2023 10:28 AM EST [facility] LAB BLOOD ORDERABLES Final Resu lt [facility] [address] [phone] * (ABNORMAL) Comprehensive metabolic panel (06/03/2023 10:26 AM EST) [facility] Sodium 137 136 - 146 meq/L 06/03/2023 10:57 AM [facility] Potassium 4.0 3.5 - 5.1 meq/L 06/03/2023 10:57 AM [facility] Chloride 104 102 - 112 meq/L 06/03/2023 10:57 AM [facility] CO2 27 21 - 32 meq/L 06/03/2023 10:57 AM [facility] Calcium 9.5 8.4 - 10.1 mg/dL 06/03/2023 10:57 AM [facility] Glucose 100 74 - 106 mg/dL 06/03/2023 10:57 AM [facility] BUN 11 7 - 22 mg/dL 06/03/2023 10:57 AM [facility] Creatinine 1.39(H) 0.70 - 1.30 mg/dL 06/03/2023 10:57 AM [facility] BUN/Creatinine 8 8 - 20 06/03/2023 10:57 AM [facility] Albumin 3.6 3.4 - 5.0 g/dL 06/03/2023 10:57 AM [facility] Alkaline Phosphatase 60 27 - 136 U/L 06/03/2023 10:57 AM [facility] ALT 15(L) 16 - 61 U/L 06/03/2023 10:57 AM [facility] AST 13 5 - 37 U/L 06/03/2023 10:57 AM [facility] Total Bilirubin 0.4 0.2 - 1.2 mg/dL 06/03/2023 10:57 AM [facility] Protein, Total 7.0 6.4 - 8.2 gm/dL 06/03/2023 10:57 AM [facility] Anion Gap 10 9 - 20 06/03/2023 10:57 AM [facility] A/G Ratio 1.1 1.1 - 2.5 06/03/2023 10:57 AM [facility] Globulin 3.4 1.5 - 4.5 g/dL 06/03/2023 10:57 AM [facility] Osmolality Calc 273.3 10:57 AM [facility] eGFR (mL/min/1.73m2) 58(L) >=60 mL/min/1.7 3m2 06/03/2023 10:57 AM [facility] Comment:ESTIMATED GFR IS NOT ACCURATE CREATININE CLEARANCE IN PREDICTING GLOMERULAR FILTRATION RATE. ESTIMATED GFR IS NOT APPLICABLE FOR DIALYSIS PATIENTS. Blood Venipuncture / Unknown 06/03/2023 10:26 AM EST 06/03/2023 10:28 AM EST Shaina Donaldo DO LAB BLOOD ORDERABLES Final Resu lt [facility] [address] [place] [address], [facility] [phone] * SARS-CoV2/Influenza/RSV RT-PCR (06/03/2023 10:20 AM EST) SARS-COV2/RT-P CR Negative Negative DEVICE [id number] 06/03/2023 11:32 AM EST [facility] Influenza A RT-PCR Negative Negative DEVICE [id number] 06/03/2023 11:32 AM EST [facility] Influenza B RT-PCR Negative Negative DEVICE [id number] 06/03/2023 11:32 AM EST [facility] RSV by RT-PCR Negative Negative DEVICE [id number] 06/03/2023 11:32 AM EST [facility] Nasopharyngeal NASOPHARYNGEAL SWAB / Unknown 06/03/2023 10:20 AM EST 06/03/2023 10:24 AM EST [facility] - 06/03/2023 11:32 AM EST The presence of SARS-CoV-2/FLU/RSV viral nucleic acids cannot rule out co- infections or disease caused by other viral or bacterial pathogens. ??As with any molecular test, mutations within the target regions of the Xpert Xpress SARS-CoV-2/Flu/RSV test could affect primer and/or probe binding resulting in failure to detect the presence of virus or the virus being detected less predictably. ??False negative results may occur if the virus is present at levels below the analytical limit of detection in this specimen. This Xpert Xpress SARS-CoV-2/Flu/RSV test is a rapid, real-time RT-PCR test intended for the qualitative detection of nucleic acid from Xpert Xpress SARS-CoV-2/Flu/RSV in a nasopharyngeal swab specimen collected from individuals suspected of Xpert Xpress SARS-CoV-2/Flu/RSV by their healthcare provider. ??Results from [facility] Xpert Xpress SARS-CoV-2/Flu/RSV test should be correlated with the clinical history, epidemiological data, and other data available to the clinician evaluating the patient. ??Viral nucleic acid may persist in vivo, independent of virus viability. ??Detection of analyte target(s) does not imply that the corresponding virus(es) are infectious or are the causative agents for clinical symptoms. This test has not been Food and Drug Administration (FDA) cleared or approved and has been authorized by FDA under an Emergency Use Authorization (EUA). ??This EUA will be effective until the declaration that circumstances exist justifying the authorization of the emergency use of in vitro diagnostic tests for detection and/or diagnosis of COVID-19 is terminated under Section 564(b)(2) of the Act or the EUA is revoked under Section 564(g) of the Act. Fact Sheet for Healthcare Providers: https://www.[employer]/Documents/Xpert%20Xpress%20SARS%20CoV-2/Fact%20Sheets/30 2-390 2%90MCKL-BMR-3%20HEALTHCARE%20PROVIDERS%20FACT%20SHEET.pdf Fact Sheet for Healthcare Patients: https://www.[employer]/Documents/Xpert%20Xpress%20SARS%20Cov-2/Fact%20Sheets/30 2-380 1%70LUHE-MUQ-4%20PATIENT%20FACT%20SHEET.pdf Shaina Fulton DO MICROBIOLOGY - GENERAL ORDERABL ES Final Result Performing Organization Address [facility]/State/[facility] Co de Phone Number [facility] [address] [phone] * (ABNORMAL) High Sensitivity Troponin I (06/03/2023 10:20 AM EST) Troponin I High Sensitivity (pg/mL) 616.2(HH) 3 - 58.8 pg/mL 06/03/2023 10:54 AM EST [facility] Comment: Troponin Result (pg/mL) ? *Interpretation 3-58.8 ? *Normal; less than 99th percentile of normal range >58.8 ?*Abnormal; greater than 99th percentile of normal range The Troponin I test methodology changed. Reporting units are now pg/mL instead of the previously used ng/mL: ??Normal reference ranges, critical cutoffs, specimen type, and comments have changed. ??*See the test change alert bulletin* To determine if a patient is experiencing an AMI with Troponin I, High Sensitivity it is important to use the assay in conjunction with patient presentation, clinical suspicion, and a serial-collection protocol. Biotin specimen concentration >300 ng/mL may lead to falsely depressed results for patient samples. ??Do not use this test for renal dysfunction patients (eGFR <60) unless it is confirmed that the patient is not taking Biotin. Blood Venipuncture / Unknown 06/03/2023 10:20 AM EST 06/03/2023 10:24 AM EST Shaina Fulton DO LAB BLOOD ORDERABLES Final Resu lt Performing Organization Address [facility]/State/[facility] Co de Phone Number [facility] [address] [phone] * (ABNORMAL) CBC with Auto Diff (06/03/2023 10:20 AM EST) WBC 9.6(H) 3.6 - 9.5 K/??L 06/03/2023 10:27 AM EST [facility] RBC 4.32 4.20 - 5.70 M/??L 06/03/2023 10:27 AM [facility] Hemoglobin 10.6(L) 13.7 - 17.5 GM/DL 06/03/2023 10:27 AM [facility] Hematocrit 33.6(L) 40.0 - 51.0 % 06/03/2023 10:27 AM [facility] MCV 78(L) 79 - 95 fL 06/03/2023 10:27 AM [facility] MCH 24.5(L) 25.6 - 32.2 pg 06/03/2023 10:27 AM [facility] MCHC 31.5(L) 32.2 - 36.5 GM/DL 06/03/2023 10:27 AM [facility] RDW 16.6(H) 11.7 - 14.9 % 06/03/2023 10:27 AM [facility] Platelets 595(H) 163 - 369 K/CU MM 06/03/2023 10:27 AM [facility] MPV 9.1(L) 9.4 - 12.4 fL 06/03/2023 10:27 AM [facility] % Neutros 73(H) 34 - 71 % 06/03/2023 10:27 AM [facility] % Lymphs 18(L) 19 - 53 % 06/03/2023 10:27 AM [facility] % Monos 7 3 - 9 % 06/03/2023 10:27 AM [facility] % Eos 1 0 - 1 % 06/03/2023 10:27 AM [facility] % Baso 1 0 - 2 % 06/03/2023 10:27 AM [facility] NRBC Absolute 0.00 0 - 0.12 K/ul 06/03/2023 10:27 AM [facility] # Neutros 6.98(H) 1.56 - 6.13 K/??L 06/03/2023 10:27 AM [facility] # Lymphs 1.72 1.00 - 3.50 K/??L 06/03/2023 10:27 AM [facility] # Monos 0.66 0.16 - 1.00 K/??L 06/03/2023 10:27 AM [facility] # Eos 0.12 0.00 - 0.80 K/??L 06/03/2023 10:27 AM [facility] # Baso 0.06 0.00 - 0.20 K/??L 06/03/2023 10:27 AM [facility] Immature Granulocytes-Re lative 0.40 0.00 - 0.60 % 06/03/2023 10:27 AM [facility] # IG 0.04 0.00 - 0.05 K/uL 06/03/2023 10:27 AM EST [facility] Blood Venipuncture / Unknown 06/03/2023 10:20 AM EST 06/03/2023 10:24 AM EST Narrative [facility] - 06/03/2023 10:27 AM EST When CBC w/ Auto Diff is ordered the lab will add a Manual Differential as a quality check at no additional charge if: Lymphocytes greater than seventy five percent with normal or increased WBC Monocytes greater than Fifteen percent Basophil greater than four percent Bands >10% or several immature myeloids are seen on scan Blast? Flag noted Atypical Lymph flag noted us Shainaetta Fulton DO LAB BLOOD ORDERABLES Final Resu lt [facility] [address] [phone] * XR chest 1 view portable / bedside (06/03/2023 10:17 AM EST) Anatomical Region Laterality Modality X-Ray 06/03/2023 10:3 5 AM EST Impressions 06/03/2023 10:36 AM EST No acute cardiac or pulmonary disease. Images reviewed, interpreted, and dictated by Jennifer Rosario MD Narrative 06/03/2023 10:36 AM EST PORTABLE CHEST X-RAY INDICATION: ??Acute chest pain. FINDINGS: ??A portable view of the chest was obtained. ??Comparison is made to a prior exam dated 01/12/2021. ?? The cardiac and mediastinal silhouettes are within normal limits. There is evidence of granulomatous disease. The lungs are otherwise clear. ??There is no pleural effusion or pneumothorax. ?? Procedure Note Jennifer Rosario MD - 06/03/2023 PORTABLE CHEST X-RAY INDICATION: Acute chest pain. FINDINGS: A portable view of the chest was obtained. Comparison is made to a prior exam dated 01/12/2021. The cardiac and mediastinal silhouettes are within normal limits. There is evidence of granulomatous disease. The lungs are otherwise clear. There is no pleural effusion or pneumothorax. IMPRESSION: No acute cardiac or pulmonary disease. Images reviewed, interpreted, and dictated by Jennifer Rosario MD Shaina Fulton DO IMG DIAGNOSTIC IMAGING ORDERABL ES Final Result * ECG 12 lead (06/03/2023 9:54 AM EST) VENTRICULAR RATE EKG/MIN 66 BPM GE MUSE ATRIAL RATE (MCT) 66 BPM GE MUSE [place] Interval 134 ms GE MUSE QRS-INTERVAL (MSEC) 88 ms GE MUSE QT Interval 390 ms GE MUSE QTC Interval 408 ms GE MUSE P [place] 31 degrees GE MUSE R AXIS (MCT) 58 degrees GE MUSE T Wave [place] 45 degrees GE MUSE [place] Diagnosis Age and gender specific ECG analysis Sinus rhythm with Possible premature atrial complexes with aberrant conduction Otherwise normal ECG No previous ECGs available Confirmed by Tomeka WING, MED ([id number]), make up editor Naomy Main ([id number]) on 06/03/2023 3:43:32 PM GE MUSE 06/03/2023 9:54 AM EST 06/03/2023 3:43 PM EST Shaina Fulton DO ECG ORDERABLES Final Result GE MUSE * EKG-SCANNED (06/03/2023) Narrative 06/03/2023 Ordered by an unspecified provider. us Default Scanning Provider SCAN ORDERS Final Result * EKG-SCANNED (06/03/2023) Narrative 06/03/2023 Ordered by an unspecified provider. us Default Scanning Provider SCAN ORDERS Final Result documented in this encounter Visit Diagnoses Diagnosis NSTEMI (non-ST elevated myocardial infarction) (HCC)- Primary Acute myocardial infarction, subendocardial infarction, episode of care unspecified NSTEMI (non-ST elevation myocardial infarction) (HCC) Acute myocardial infarction, subendocardial infarction, episode of care unspecified Stented coronary artery Postsurgical percutaneous transluminal coronary angioplasty status NSTEMI (non-ST elevated myocardial infarction) (HCC) Acute myocardial infarction, subendocardial infarction, episode of care unspecified documented in this encounter Admitting Diagnoses Diagnosis NSTEMI (non-ST elevated myocardial infarction) (HCC) Acute myocardial infarction, subendocardial infarction, episode of care unspecified documented in this encounter Administered Medications Inactive Administered Medications - up to 3 most recent administrations Medication Order MAR Action Action Date Dose Rate Site acetaminophen (TYLENOL) tablet 1,000 mg 1,000 mg Every 6 hours PRN, oral, fever, Starting on Tue06/03/23 at 1128, Recommended maximum dose of acetaminophen is 4000 mg from all sources in 24 hours Given 06/04/2023 3:25 PM EST 1,000 mg aspirin EC tablet 81 mg 81 mg Daily, oral, First dose on Tue06/03/23 at 1135, * DO NOT CRUSH THIS DOSAGE FORM * Given 06/07/2023 9:05 AM EST 81 mg Given 06/06/2023 1:54 PM EST 81 mg Given 06/05/2023 8:40 AM EST 81 mg atorvastatin (LIPITOR) tablet 80 mg 80 mg Every Night, oral, First dose (after last modification) on Tue06/03/23 at 2100 Given 06/06/2023 8:58 PM EST 80 mg Given 06/05/2023 8:47 PM EST 80 mg Given 06/04/2023 8:19 PM EST 80 mg calcium carbonate (TUMS) chewable tablet 500 mg (elemental calcium 200 mg) 500 mg 3 times daily PRN (1 tablet), oral, indigestion, heartburn, Starting on Tue06/05/23 at 0642, Each tablet contains 500 mg of calcium carbonate which equals 200 mg of elemental calcium. cloNIDine HCL (CATAPRES) tablet 0.1 mg 0.1 mg Every 4 hours PRN, oral, HTN for SBP > 155, Starting on Tue06/07/23 at 1326, Hold if SBP < 100 mmHg, DBP < 50 mmHg, or HR < 50 bpm, or patient is on pressor. famotidine (PF) injection 20 mg 20 mg Once, intravenous, On Tue06/06/23 at 1200, For 1 dose, Pharmacist to renally dose if CrCl is less than 50 mL/min or on CRRT. Given 06/06/2023 11:28 AM EST 20 mg fentaNYL (SUBLIMAZE) injection IMG once as needed, intravenous, Starting on Tue06/06/23 at 1416, For 1 dose, Intra-op Given 06/06/2023 2:16 PM EST 50 mcg fentaNYL (SUBLIMAZE) injection IMG once as needed, intravenous, Starting on Tue06/06/23 at 1432, For 1 dose, Intra-op Given 06/06/2023 2:32 PM EST 50 mcg heparin 1,000 Units/mL injection IMG once as needed, intravenous, Starting on Tue06/06/23 at 1427, For 1 dose, Intra-op Given 06/06/2023 2:27 PM EST 3,000 Units heparin 1,000 Units/mL injection IMG once as needed, intravenous, Starting on Tue06/06/23 at 1437, For 1 dose, Intra-op Given 06/06/2023 2:37 PM EST 7,000 Units heparin bolus from bag 2,500 Units 2,500 Units Every 6 hours PRN, intravenous, aPTT 30-44, Starting on Tue06/03/23 at 1654, PRN Bolus Bolus from Bag 06/06/2023 7:47 AM EST 2,500 Units Bolus from Bag 06/05/2023 4:29 PM EST 2,500 Units heparin bolus from bag 4,000 Units 4,000 Units Once, intravenous, On Tue06/03/23 at 1100, For 1 dose, Initial bolus Bolus from Bag 06/03/2023 11:28 AM EST 4,000 Units heparin infusion 25,000 units in sodium chloride 0.45% (NS) 250 mL (100 units/mL) 2-24 Units/kg/hr ? 73.9 kg Titrated (1.478-17.736 mL/hr, rounded to 1.5-17.7 mL/hr), intravenous, Starting on Tue06/03/23 at 1100, On hold since Tue06/06/2023 at 0812 until manually unheld New Bag 06/06/2023 7:45 AM EST 10 Units/kg/hr 7.4 mL/hr Restarted 06/05/2023 11:54 PM EST 8 Units/kg/hr 5.9 mL/hr New Bag 06/05/2023 4:27 PM EST 11 Units/kg/hr 8.1 mL/hr hydrALAZINE (APRESOLINE) injection 10 mg 10 mg Every 6 hours PRN, intravenous, hypertension (sbp greater than 160), Starting on Tue06/05/23 at 1805, Hold if SBP < 100 mmHg, DBP < 50 mmHg, or patient is on pressor. Given 06/06/2023 3: 54 PM EST 10 mg Given 06/06/2023 11:07 AM EST 10 mg hydrALAZINE (APRESOLINE) injection 10 mg 10 mg Every 3 hours PRN, intravenous, HTN for SBP > 155, Starting on Tue06/07/23 at 1326, Hold if SBP < 100 mmHg, DBP < 50 mmHg, or patient is on pressor. HYDROmorphone (DILAUDID) injection 0.5 mg 0.5 mg Once, intravenous, On Tue06/03/23 at 1010, For 1 dose Given 06/03/2023 10:25 AM EST 0.5 mg isosorbide mononitrate (IMDUR) 24 hr tablet 30 mg 30 mg Daily, oral, First dose on Tue06/07/23 at 1400, DO NOT CRUSH THIS DOSAGE FORM Given 06/07/2023 1:55 PM EST 30 mg lidocaine (XYLOCAINE) injection 2% IMG once as needed, subcutaneous, Starting on Tue06/06/23 at 1420, For 1 dose, Intra-op Given 06/06/2023 2:20 PM EST 5 mLs R ight Arm lisinopriL (PRINIVIL,ZESTRIL) tablet 10 mg 10 mg Daily, oral, First dose on Tue06/03/23 at 1320, Antihypertensive - Check BP - Check Pulse, On hold since 06/04/2023 at 1222 until manually unheld Given 06/04/2023 8:15 AM EST 10 mg Given 06/03/2023 1:28 PM EST 10 mg magnesium hydroxide (MILK OF MAGNESIA) suspension 30 mL 30 mL Daily as needed, oral, constipation, Starting on Tue06/03/23 at 1128, 1st line for treatment of constipation - give scheduled if no bowel movement in past 24 hours. metoprolol succinate (TOPROL-XL) 24 hr tablet 50 mg 50 mg Daily, oral, First dose on Tue06/03/23 at 1320, Hold for systolic BP < 90 mmHg or for HR < 50 BPM Do Not Crush or Chew (Tablet may be split) Given 06/07/2023 9:05 AM EST 50 mg Given 06/06/2023 3:27 PM EST 50 mg Given 06/05/2023 8:40 AM EST 50 mg midazolam (PF) (VERSED) injection IMG once as needed, intravenous, Starting on Tue06/06/23 at 1418, For 1 dose, Intra-op Given 06/06/2023 2:18 PM EST 2 mg morphine injection 2 mg 2 mg Every 4 hours PRN, intravenous, severe pain (7-10), chest pain, Starting on Tue06/06/23 at 1016 Given 06/06/2023 10:27 AM EST 2 mg niCARdipine (CARDENE) injection IMG once as needed, Starting on Tue06/06/23 at 1456, For 1 dose, Intra-op Given 06/06/2023 2:56 PM EST 1.25 mg nitroglycerin (NITROSTAT) SL tablet 0.4 mg 0.4 mg Every 5 min PRN, sublingual, chest pain, Starting on Tue06/03/23 at 1133, One tablet every 5 minutes for maximum of 3 doses in 15 minutes; Contact physician after the first dose. * DO NOT CRUSH THIS DOSAGE FORM * Given 06/06/2023 1:39 PM EST 0.4 mg Given 06/06/2023 11:08 AM EST 0.4 mg nitroglycerin infusion 0.1 mg/mL in D5W 250 mL 0-200 mcg/min Titrated (0-120 mL/hr), intravenous, Starting on Tue06/03/23 at 1320 Rate/Dose Change 06/03/2023 5:30 PM EST 5 mcg/min 3 mL/hr Rate/Dose Change 06/03/2023 2:01 PM EST 10 mcg/min 6 mL/hr New Bag 06/03/2023 1:36 PM EST 5 mcg/min 3 mL/hr ondansetron (ZOFRAN-ODT) disintegrating tablet 4 mg 4 mg Every 8 hours PRN, oral, nausea, vomiting, Starting on Tue06/03/23 at 1128, 1st line. If inadequate response within 60 minutes, proceed to next-line agent for same PRN reason or contact provider if no further options ordered. ondansetron PF (ZOFRAN) injection 4 mg 4 mg Once, intravenous, On Tue06/03/23 at 1010, For 1 dose, For IV push, give over 2 - 5 minutes. Given 06/03/2023 10:25 AM EST 4 mg ondansetron PF (ZOFRAN) injection 4 mg 4 mg Every 8 hours PRN, intravenous, nausea, vomiting, Starting on Tue06/03/23 at 1128, Give IV if patient is unable to take orally. 1st line If inadequate response within 60 minutes, proceed to next-line agent for same PRN reason or contact provider if no further options ordered. For IV push, give over 2 - 5 minutes. pantoprazole (PROTONIX) DR tablet 40 mg 40 mg Daily, oral, First dose on Tue06/03/23 at 1440, * DO NOT CRUSH THIS DOSAGE FORM * Given 06/04/2023 8:15 AM EST 4 0 mg Given 06/03/2023 3:37 PM EST 40 mg pantoprazole (PROTONIX) DR tablet 40 mg 40 mg Daily, oral, First dose (after last modification) on Tue06/05/23 at 0700, * DO NOT CRUSH THIS DOSAGE FORM * Given 06/05/2023 8:40 AM EST 40 mg pantoprazole (PROTONIX) DR tablet 40 mg 40 mg 2 times daily, oral, First dose (after last modification) on Tue06/06/23 at 2100, * DO NOT CRUSH THIS DOSAGE FORM * Given 06/07/2023 9:05 AM EST 40 mg Given 06/06/2023 8:58 PM EST 40 mg Given 06/06/2023 3:27 PM EST 40 mg pantoprazole (PROTONIX) injection 40 mg 40 mg Once, intravenous, On Tue06/06/23 at 1200, For 1 dose, * DILUTE IN 10 ML NS AND GIVE IV SLOWLY OVER 3 MINUTES * Given 06/06/2023 11:28 AM EST 40 mg perflutren protein-a microsphr (OPTISON) Susp 3 mL 3 mL Once, intravenous, On Tue06/03/23 at 1240, For 1 dose Given 06/03/2023 12:38 PM EST 3 mLs sodium chloride (OCEAN) nasal spray 0.65% 1 spray As needed, each nostril, irritation, Starting on Tue06/03/23 at 2020 sodium chloride 0.9% (NS) infusion 3 mL/kg/hr ? 73.9 kg Continuous (221.7 mL/hr), intravenous, Starting on Tue06/06/23 at 1400, Pre-op New Bag 06/06/2023 3:34 PM EST 3 mL/kg/hr 221.7 mL/hr sodium chloride 0.9% (NS) infusion 1,000 mL Continuous, intravenous, at 100 mL/hr, Starting on Tue06/06/23 at 1630, For 5 hours, Phase II/On Unit New Bag 06/06/2023 4:58 PM EST 1,000 mLs 100 mL/hr Tc-99m - tetrofosmin (MYOVIEW) 10.7 millicurie 10.7 millicurie Once, intravenous, On Tue06/06/23 at 1230, For 1 dose Given 06/06/2023 11:40 AM EST 10.7 millicuries ticagrelor (BRILINTA) tablet 180 mg 180 mg Once, oral, On Tue06/03/23 at 1320, For 1 dose Given 06/03/2023 1:28 PM EST 180 mg ticagrelor (BRILINTA) tablet 90 mg 90 mg 2 times daily, oral, First dose on Tue06/03/23 at 2100 Given 06/07/2023 9:05 AM EST 90 mg Given 06/06/2023 8:58 PM EST 90 mg Given 06/06/2023 1:54 PM EST 90 mg documented in this encounter Active and Recently Administered Medications Times are shown in EST. Scheduled Medication Order 06/05/2023 06/06/2023 06/07/2023 aspirin EC tablet 81 mg 81 mg Daily, oral, First dose on Tue06/03/23 at 1135, * DO NOT CRUSH THIS DOSAGE FORM * 0840 (Given - Provider: Catrina Wilkins RN) 1354 (Given - Provider: Gloria Bell, FROYLAN) 0905 (Given - Provider: Gloria Bell, FROYLAN) atorvastatin (LIPITOR) tablet 80 mg 80 mg Every Night, oral, First dose (after last modification) on Tue06/03/23 at 2100 2046 (Given - Provider: Annabelle Jimenez, FROYLAN) 2057 (Given - Provider: Annabelle Jimenez, RN) famotidine (PF) injection 20 mg (COMPLETED) 20 mg Once, intravenous, On Tue06/06/23 at 1200, For 1 dose, Pharmacist to renally dose if CrCl is less than 50 mL/min or on CRRT. 1128 (Given - Provider: Fabrizio Arnold RN) isosorbide mononitrate (IMDUR) 24 hr tablet 30 mg 30 mg Daily, oral, First dose on Tue06/07/23 at 1400, DO NOT CRUSH THIS DOSAGE FORM 1355 (Given - Provider: Gloria Bell, FROYLAN) lisinopriL (PRINIVIL,ZESTRIL) tablet 10 mg 10 mg Daily, oral, First dose on Tue06/03/23 at 1320, Antihypertensive - Check BP - Check Pulse, On hold since 06/04/2023 at 1222 until manually unheld 0900 (Automatically Held - Provider: Chaitanya Blum MD) 0900 (Automatically Held - Provider: Chaitanya Blum MD) 0900 (Automatically Held - Provider: Chaitanya Blum MD)1611 (Unheld by provider - Provider: Automatic Discharge Provider) metoprolol succinate (TOPROL-XL) 24 hr tablet 50 mg 50 mg Daily, oral, First dose on Tue06/03/23 at 1320, Hold for systolic BP < 90 mmHg or for HR < 50 BPM Do Not Crush or Chew (Tablet may be split) 0840 (Given - Provider: Catrina Wilkins RN) 1527 (Given - Provider: Fabrizio Arnold RN) 0905 (Given - Provider: Gloria Bell RN) pantoprazole (PROTONIX) DR tablet 40 mg (CANCELED) 40 mg Daily, oral, First dose (after last modification) on Tue06/05/23 at 0700, * DO NOT CRUSH THIS DOSAGE FORM * 0840 (Given - Provider: Catrina Wilkins RN) 0900 (Due) pantoprazole (PROTONIX) DR tablet 40 mg 40 mg 2 times daily, oral, First dose (after last modification) on Tue06/06/23 at 2100, * DO NOT CRUSH THIS DOSAGE FORM * 1527 (Given - Provider: Fabrizio Arnold RN)2058 (Given - Provider: Annabelle Jimenez RN) 0905 (Given - Provider: Gloria Bell, FROYLAN) pantoprazole (PROTONIX) injection 40 mg (COMPLETED) 40 mg Once, intravenous, On Tue06/06/23 at 1200, For 1 dose, * DILUTE IN 10 ML NS AND GIVE IV SLOWLY OVER 3 MINUTES * 1128 (Given - Provider: Fabrizio Arnold, FROYLAN) Tc-99m - tetrofosmin (MYOVIEW) 10.7 millicurie (COMPLETED) 10.7 millicurie Once, intravenous, On Tue06/06/23 at 1230, For 1 dose 1140 (Given - Provider: Mary Alice Escobedo) ticagrelor (BRILINTA) tablet 90 mg 90 mg 2 times daily, oral, First dose on Tue06/03/23 at 2100 0841 (Given - Provider: Catrina Wilkins, RN)2047 (Given - Provider: Annabelle Jimenez, RN) 1354 (Given - Provider: Gloria Bell, RN)2058 (Given - Provider: Annabelle Jimenez, RN) 0905 (Given - Provider: Gloria Bell, RN) Continuous Medication Order 06/05/2023 06/06/2023 06/07/2023 heparin infusion 25,000 units in sodium chloride 0.45% (NS) 250 mL (100 units/mL) (CANCELED) 2-24 Units/kg/hr ? 73.9 kg Titrated (1.478-17.736 mL/hr, rounded to 1.5-17.7 mL/hr), intravenous, Starting on Tue06/03/23 at 1100, On hold since Tue06/06/2023 at 0812 until manually unheld 0749 (Stopped - Provider: Sebastian Gomez RN)1031 (Rate/Dose Change - Provider: Catrina Wilkins RN)1512 (New Bag - Provider: Catrina Wilkins RN)1627 (New Bag - Provider: Catrina Wilkins, RN)2243 (Stopped - Provider: Annabelle Jimenez, RN)2354 (Restarted - Provider: Annabelle Jimenez, RN) 0745 (New Bag - Provider: Fabrizio Arnold, RN)0812 (Held by provider - Provider: Raz Carmichael MD)1510 (Unheld by provider - Provider: Amarilis Rojas APRN) nitroglycerin infusion 0.1 mg/mL in D5W 250 mL 0-200 mcg/min Titrated (0-120 mL/hr), intravenous, Starting on Tue06/03/23 at 1320 sodium chloride 0.9% (NS) infusion (CANCELED) 3 mL/kg/hr ? 73.9 kg Continuous (221.7 mL/hr), intravenous, Starting on Tue06/06/23 at 1400, Pre-op 1534 (New Bag - Provider: Fabrizio Arnold, RN) sodium chloride 0.9% (NS) infusion (CANCELED) 1,000 mL Continuous, intravenous, at 100 mL/hr, Starting on Tue06/06/23 at 1630, For 5 hours, Phase II/On Unit 1658 (New Bag - Provider: Fabrizio Arnold, RN) PRN Medication Order 06/05/2023 06/06/2023 06/07/2023 acetaminophen (TYLENOL) tablet 1,000 mg 1,000 mg Every 6 hours PRN, oral, fever, Starting on Tue06/03/23 at 1128, Recommended maximum dose of acetaminophen is 4000 mg from all sources in 24 hours calcium carbonate (TUMS) chewable tablet 500 mg (elemental calcium 200 mg) 500 mg 3 times daily PRN (1 tablet), oral, indigestion, heartburn, Starting on Tue06/05/23 at 0642, Each tablet contains 500 mg of calcium carbonate which equals 200 mg of elemental calcium. cloNIDine HCL (CATAPRES) tablet 0.1 mg 0.1 mg Every 4 hours PRN, oral, HTN for SBP > 155, Starting on Tue06/07/23 at 1326, Hold if SBP < 100 mmHg, DBP < 50 mmHg, or HR < 50 bpm, or patient is on pressor. fentaNYL (SUBLIMAZE) injection (COMPLETED) IMG once as needed, intravenous, Starting on Tue06/06/23 at 1416, For 1 dose, Intra-op 1416 (Given - Provider: Aury Little, FROYLAN) fentaNYL (SUBLIMAZE) injection (COMPLETED) IMG once as needed, intravenous, Starting on Tue06/06/23 at 1432, For 1 dose, Intra-op 1432 (Given - Provider: Aury Little, FROYLAN) heparin 1,000 Units/mL injection (COMPLETED) IMG once as needed, intravenous, Starting on Tue06/06/23 at 1427, For 1 dose, Intra-op 1427 (Given - Provider: Aury Little RN) heparin 1,000 Units/mL injection (COMPLETED) IMG once as needed, intravenous, Starting on Tue06/06/23 at 1437, For 1 dose, Intra-op 1437 (Given - Provider: Aury Little RN) heparin bolus from bag 2,500 Units (CANCELED)(Linked Group 1) 2,500 Units Every 6 hours PRN, intravenous, aPTT 30-44, Starting on Tue06/03/23 at 1654, PRN Bolus 1629 (Bolus from Bag - Provider: Catrina Wilkins RN) 0747 (Bolus from Bag - Provider: Fabrizio Arnold, FROYLAN) hydrALAZINE (APRESOLINE) injection 10 mg (CANCELED) 10 mg Every 6 hours PRN, intravenous, hypertension (sbp greater than 160), Starting on Tue06/05/23 at 1805, Hold if SBP < 100 mmHg, DBP < 50 mmHg, or patient is on pressor. 1107 (Given - Provider: Fabrizio Arnold RN)1554 (Given - Provider: Fabrizio Arnold RN) hydrALAZINE (APRESOLINE) injection 10 mg 10 mg Every 3 hours PRN, intravenous, HTN for SBP > 155, Starting on Tue06/07/23 at 1326, Hold if SBP < 100 mmHg, DBP < 50 mmHg, or patient is on pressor. lidocaine (XYLOCAINE) injection 2% (COMPLETED) IMG once as needed, subcutaneous, Starting on Tue06/06/23 at 1420, For 1 dose, Intra-op 1420 (Given - Provider: Christopher Khalil MD) magnesium hydroxide (MILK OF MAGNESIA) suspension 30 mL 30 mL Daily as needed, oral, constipation, Starting on Tue06/03/23 at 1128, 1st line for treatment of constipation - give scheduled if no bowel movement in past 24 hours. midazolam (PF) (VERSED) injection (COMPLETED) IMG once as needed, intravenous, Starting on Tue06/06/23 at 1418, For 1 dose, Intra-op 1418 (Given - Provider: Aury Little RN) morphine injection 2 mg 2 mg Every 4 hours PRN, intravenous, severe pain (7-10), chest pain, Starting on Tue06/06/23 at 1016 1027 (Given - Provider: Fabrizio Arnold RN) niCARdipine (CARDENE) injection (COMPLETED) IMG once as needed, Starting on Tue06/06/23 at 1456, For 1 dose, Intra-op 1456 (Given - Provider: Aury Little, FROYLNA) nitroglycerin (NITROSTAT) SL tablet 0.4 mg 0.4 mg Every 5 min PRN, sublingual, chest pain, Starting on Tue06/03/23 at 1133, One tablet every 5 minutes for maximum of 3 doses in 15 minutes; Contact physician after the first dose. * DO NOT CRUSH THIS DOSAGE FORM * 1108 (Given - Provider: Fabrizio Arnold, RN)1339 (Given - Provider: Gloria Bell RN) ondansetron (ZOFRAN-ODT) disintegrating tablet 4 mg(Linked Group 2) 4 mg Every 8 hours PRN, oral, nausea, vomiting, Starting on Tue06/03/23 at 1128, 1st line. If inadequate response within 60 minutes, proceed to next-line agent for same PRN reason or contact provider if no further options ordered. ondansetron PF (ZOFRAN) injection 4 mg(Linked Group 2) 4 mg Every 8 hours PRN, intravenous, nausea, vomiting, Starting on Tue06/03/23 at 1128, Give IV if patient is unable to take orally. 1st line If inadequate response within 60 minutes, proceed to next-line agent for same PRN reason or contact provider if no further options ordered. For IV push, give over 2 - 5 minutes. sodium chloride (OCEAN) nasal spray 0.65% 1 spray As needed, each nostril, irritation, Starting on Tue06/03/23 at 2020 Linked Groups Order Group 1: heparin bolus from bag 4,435 Units (CANCELED) 4,435 Units Every 6 hours PRN (rounded from 4,434 Units = 60 Units/kg ? 73.9 kg), intravenous, aPTT LESS than 30, Starting on Tue06/03/23 at 1654, PRN Bolus Or heparin bolus from bag 2,500 Units (CANCELED)Jump to med 2,500 Units Every 6 hours PRN, intravenous, aPTT 30-44, Starting on Tue06/03/23 at 1654, PRN Bolus Group 2: ondansetron (ZOFRAN-ODT) disintegrating tablet 4 mgJump to med 4 mg Every 8 hours PRN, oral, nausea, vomiting, Starting on Tue06/03/23 at 1128, 1st line. If inadequate response within 60 minutes, proceed to next-line agent for same PRN reason or contact provider if no further options ordered. Or ondansetron PF (ZOFRAN) injection 4 mgJump to med 4 mg Every 8 hours PRN, intravenous, nausea, vomiting, Starting on Tue06/03/23 at 1128, Give IV if patient is unable to take orally. 1st line If inadequate response within 60 minutes, proceed to next-line agent for same PRN reason or contact provider if no further options ordered. For IV push, give over 2 - 5 minutes. documented in this encounter Care Teams Knowledge Architect Relationship Specialty Start Date End Date Carl Patton MD [address] [place] [address] PCP - General Family Medicine 06/03/23 documented as of this encounter
--- OUTSIDE RECORDS SUMMARY | 2024-04-05 11:57 | XMS_ITS | Encounter Summary ---
Author Organization [facility] Address [address] [place] [address] Care Team Providers Care Aircraft Restorer Name Role Phone Stanislaw Martinez MD Primary Care Provider [phone] Encounter Details Date Type Department Care Team (Late st Contact Info) Description 07/06/2021 Transcribed Document [facility] [place] [address] [place] [address] ProviderLucy MD [address] [place] [address] Social History Tobacco Use Types Packs/Day Years Used Date Smoking Tobacco: Never Assessed Sex and Gender Information Value Date Recorded Sex Assigned at Not on file Legal Sex Male 5:20 PM CDT Gender Identity Not on file Sexual Orientation Not on file documented as of this encounter Miscellaneous Notes * Cerner Conversion Note - Lucy Scott MD - 07/06/2021 12:08 PM 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 [address] [place] [id number] PERSON INFORMATION Name ISABEL МАРИНА C Age 55 Years 1965 Sex Male Language Azeri PCP STANISLAW MARTINEZ MD-[facility] Marital Status Single Med Service Emergency Medicine Acct# Arrival 01/12/2021 11:39:00 Visit Reason Chest pain; CP SINCE TUESDAY Acuity 2 - Emergent LOS 000 06:23 Depart Date: 01/12/21 06:02 PM Address: [address] [place] [address] [address] [place] [id number] Comment: PROVIDER INFORMATION DIAGNOSIS PHYS DOC NOTES VITALS INFORMATION Vital Sign Triage Latest Temp Source Oral Oral Temp Mode Fahrenheit Fahrenheit Temp Fahrenheit 98.0 Deg F 98.0 Deg F Temp Celsius 02 Sat 100 % 100 % Respiratory Rate 20 Breaths/Min 20 Breaths/Min Peripheral Pulse Rate 70 bpm 70 bpm Apical Heart Rate Blood Pressure 160 mmHg / 77 mmHg 160 mmHg / 77 mmHg Comment: MEDICAL INFORMATION Allergy Info: No Known Allergies Medications: Comment: DISCHARGE INFORMATION Discharge Disposition: OP Self Care or Home Discharge Location: PATIENT EDUCATION INFORMATION Instructions: Tendinitis Follow up: With: Address: When: STANISLAW MARTINEZ [address] [facility] [address] [place] [address] Business (1) Within 2 to 3 days Comment: documented in this encounter Plan of Treatment Not on file documented as of this encounter Visit Diagnoses Not on filedocumented in this encounter Care Teams Aircraft Restorer Relationship Specialty Start Date End Date Stanislaw Martinez MD [address] [place] [address] PCP - General Family Medicine 06/03/23 documented as of this encounter
[2024-04-05 12:43] LABS: Basophils # 0.1 K/mm3 (0-0.2); Basophils % 1.8 % (0.1-2.0); Eosinophils # 0.3 K/mm3 (0.0-0.4); Eosinophils % 6.2 % (0.1-12.0); Hematocrit 41.6 % (42.0-52.0); Hemoglobin 13.4 g/dL (14.1-18.0); Lymphocytes # 1.9 K/mm3 (0.7-4.5); Lymphocytes % 34.2 % (10-50); Mean Corpuscular HGB Conc 32.3 g/dL (31.8-35.4); Mean Corpuscular Hemoglobin 27.8 pg (27.0-31.2); Mean Platelet Volume 7.2 fl (7.4-10.4); Monocytes # 0.3 K/mm3 (0.1-1.0); Monocytes % 5.6 % (1.7-9.3); Neutrophils # 2.9 K/mm3 (1.8-7.8); Neutrophils % 52.3 % (37.0-80.0); Platelet Count 391 K/mm3 (142-424); Red Blood Count 4.84 M/mm3 (4.60-6.20); White Blood Count 5.5 K/mm3 (4.8-10.8)
[2024-04-05 13:18] LABS: Iron 92 ug/dL (49-181)
[2024-04-05 13:28] LABS: Total Iron Binding Capacity 257 ug/dL (261-462)
[2024-04-05 13:54] LABS: Ferritin 100 ng/ml (17.9-464)
[2024-04-05 15:38] LABS: Vitamin B12 745 pg/mL (239-931)
[2024-04-05 15:55] LABS: Folate 3.63 ng/mL
== END 2024-04-05 23:59 | disposition home or self-care (01) ==
LOC: LAB 11:52
PROVIDERS: PCP Family Medicine; Visit Provider Internal Medicine Medical Oncology
DX: D64.9 Anemia, unspecified (principal)
CPT/HCPCS: 36415; 82607; 82728; 82746; 83540; 83550; 85025

== ENCOUNTER 2024-04-19 16:17 | Outpatient (CLI) | payer BC, SELFPAY ==
--- OUTSIDE RECORDS SUMMARY | 2024-04-19 16:20 | XMS_ITS | Encounter Summary ---
Author Organization [facility] Address [address] [place], [place] [address] Phone CareEverywhereSuppor [email or web address] Care Team Providers Care Field Service Technician Name Role Phone Noah Wagner Primary Care Provider [phone] Encounter Details Date Type Department Care Team (Late st Contact Info) Description [address] [place] [phone] Mary Dwyer RN [address] [place] [address] Social History Tobacco Use Types [...] on filedocumented in this encounter Care Teams Field Service Technician Relationship Specialty Start Date End Date Noah Wagner[address] [address] PCP - General Family Medicine 04/07/20 documented as of this encounter
--- OUTSIDE RECORDS SUMMARY | 2024-04-19 16:20 | XMS_ITS | Encounter Summary ---
Author Organization [facility] Address [address] [place], [place] [address] Phone CareEverywhereSuppor [email or web address] Care Team Providers Care Tipple Tender Name Role Phone Noah Wagner Primary Care Provider [phone] Encounter Details Date Type Department Care Team (Late st Contact Info) Description 09/15/[address] [place] [phone] Mary Dwyer RN [address] [place] [address] Social History Tobacco Use Types [...] on filedocumented in this encounter Care Teams Tipple Tender Relationship Specialty Start Date End Date Noah Wagner [address] [address] PCP - General Family Medicine 04/07/20 documented as of this encounter
--- OUTSIDE RECORDS SUMMARY | 2024-04-19 16:20 | XMS_ITS | Encounter Summary ---
Author Organization [facility] Address [address] [place], [place] [address] Phone CareEverywhereSuppor [email or web address] Care Team Providers Care Stallion Manager Name Role Phone Noah Wagner Primary Care Provider [phone] Encounter Details Date Type Department Care Team (Late st Contact Info) Description 06/08/[address] [place] [address] Mary Dwyer RN [address] [place] [address] Social History Tobacco Use Types [...] 06/08/2023 3:30 PM EST Return call from support team member. He was discharged yesterday from [...] APRN with an update. Mary Dwyer RN ORK PLANNER documented in this encounter Plan of Treatment Not on file documented as of this encounter Visit Diagnoses Not on filedocumented in this encounter Care Teams Stallion Manager Relationship Specialty Start Date End Date [place] [address] [facility] [place] [address] PCP - General Family Medicine 04/07/20 documented as of this encounter
--- OUTSIDE RECORDS SUMMARY | 2024-04-19 16:20 | XMS_ITS | Encounter Summary ---
Author Organization [facility] Address [address] [place], [place] [address] Phone CareEverywhereSuppor [email or web address] Care Team Providers Care Rug Setter Velvet Name Role Phone Noah Wagner Primary Care Provider [phone] Reason for Visit * Reason Comments Return to Work / Duty Encounter Details Date Type Department Care Team (Latest Contact Info) Description 12/26/2023 6:30 AM EDT Clinical Support ALIRE[facility] [place] [address] [facility] [address] [place] [address] Srinivasan Bonilla, RN [address] [place] [address] Return to work evaluation (Primary Dx) Social History Tobacco Use Types [...] this encounter Patient Instructions * Patient Instructions* Srinivasan Bonilla RN - 12/26/2023 6:30 AM EDT RTW Regular duty per release note RTC PRN Continue care with PCP documented in this encounter Progress Notes * Srinivasan Bonilla RN - 12/26/2023 6:30 AM EDT Arjun Melton is a 58 y.o. male who presents for personal return to work. WD ID: [id number] Employer: [employer]: [id number] Description: PWT Shift: 1st Full-time GL and #: Srinivasan Patton LDW: 12/23/23 RELEASE: 12/26/23 PMLOA. TM states he had F/U with PCP after ERUN. TM states PCP believes r/t HTN. TM states he started new BP med per PCP. TM states tolerating well. TM states checking at home and staying WNL. TM states no current symptoms at this time. TM states he feels ready to RTW. Visit Vitals BP 102/65 Pulse 63 Temp 98.4 ??F Resp 18 SpO2 98% Smoking Status Every Day PHQ-9 Total Score: 0 (12/26/2023 5:50 AM) ICD-10-CM ICD-9-CM 1. Return to work evaluation Z76.89 V72.85 Patient Instructions RTW Regular duty per release note RTC PRN Continue care with PCP Srinivasna Bonilla RN documented in this encounter Plan of Treatment Not on file documented as of this encounter Visit Diagnoses Diagnosis Return to work evaluation- Primary Other specified examination documented in this encounter Care Teams Rug Setter Velvet Relationship Specialty Start Date End Date Noah Wagner [address] [address] PCP - General Family Medicine 04/07/20 documented as of this encounter
--- OUTSIDE RECORDS SUMMARY | 2024-04-19 16:20 | XMS_ITS | Encounter Summary ---
Author Organization [facility] Address [address] [place], [place] [id number] Phone CareEverywhereSuppor [email or web address] Care Team Providers Care Welfare Eligibility Interviewer Name Role Phone Noah Wagner Primary Care Provider [phone] Reason for Visit * Reason Comments Heart Issue Encounter Details Date Type Department Care Team (Latest Contact Info) Description 12/23/2023 11:30 AM EDT Clinical Support ALIREZA [facility] [address] [place] [address] Charu West, GARCIA [address] [place] [address] Dizziness (Primary Dx) Social History [...] Claude contact #'s. documented in this encounter Progress Notes * Charu West NP - 12/23/2023 11:00 AM EDT Subjective Arjun Melton is a 58 y.o. male. WD ID: [id number] Employer: [employer]: [id number] Description: PWT Shift: 1st Full-time GL and #: Srinivasan Abdi Responded to tones dropped for LH and dizzy in 800. Onset: Since waking Symptoms: Transported TM back to [facility] 1999 via [place] without stretcher. Notes: [...] giddiness documented in this encounter Care Teams Welfare Eligibility Interviewer Relationship Specialty Start Date End Date Noah Wagner [address] [address] PCP - General Family Medicine 04/07/20 documented as of this encounter
--- OUTSIDE RECORDS SUMMARY | 2024-04-19 16:20 | XMS_ITS | Encounter Summary ---
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 He has notified STD/LF. Mary Dwyer RN documented in this encounter Plan of Treatment Not on file documented as of this encounter Visit Diagnoses Not on filedocumented in this encounter Care Teams Shipyard Painting Supervisor Relationship Specialty Start Date End Date Noah Wagner [address] [address] PCP - General Family Medicine 04/07/20 documented as of this encounter
--- OUTSIDE RECORDS SUMMARY | 2024-04-19 16:20 | XMS_ITS | Clinical Summary ---
Author Organization [facility] Address [address] [place], [place] [phone] Phone CareEverywhereSuppor [email or web address] Care Team Providers Care Water Trainer Name Role Phone Noah Wagner Primary Care Provider Allergies No known active allergies Medications desipramine [...] OPT OUT NO COPAY NB Care Teams Water Trainer Relationship Specialty Start Date End Date [place] [id number] PCP - General Family Medicine 04/07/20
--- OUTSIDE RECORDS SUMMARY | 2024-04-19 16:20 | XMS_ITS | Encounter Summary ---
Author Organization [facility] Address [address] [place], [place] [address] Phone CareEverywhereSuppor [email or web address] Care Team Providers Care Shipping/Receiving Clerk Name Role Phone Noah Wagner Primary Care Provider [phone] Encounter Details Date Type Department Care Team (Latest Contact Info) Description 10/11/2023 11:30 AM EDT Office Visit [place] [address] [facility] [address] [place] [address] Charu West, BUTTONHOLE FACER [address] [place] [address] Encounter for other administrative examinations [...] for personal return to work. WD ID: [id number] Employer: [employer]: [id number] Description: PWT Shift: 1st Full-time GL and #: Srinivasan Patton LDW: 06/03/23 06/03/23 PROCEDURE: 06/03/23 , Cardiac stent placement , : Production Cost Estimator : Dr. Romero (previous ) Current Production Cost Estimator : Dr. Barillas ( [facility]). RELEASE: 09/28/23- see chart. (Family Care [...] type documented in this encounter Care Teams Shipping/Receiving Clerk Relationship Specialty Start Date End Date Noah Wagner E. [address] [address] PCP - General Family Medicine 04/07/20 documented as of this encounter
--- OUTSIDE RECORDS SUMMARY | 2024-04-19 16:20 | XMS_ITS | Encounter Summary ---
Author Organization [facility] Address [address] [place], [place] [address] Phone CareEverywhereSuppor [email or web address] Care Team Providers Care Floor Coverings Salesperson Name Role Phone Noah Wagner Primary Care Provider [phone] Encounter Details Date Type Department Care Team (Late st Contact Info) Description 10/05/[address] [place] [address] Charu West, GARCIA [address] [place] [address] Social History Tobacco Use Types [...] PM EDT ----- Regarding: WH question :PRTW membership coordinator called asking about WH activities. He is [...] No return call. Call to Bhupinder @ [facility] re: WH. Verbal order to extend WH x1 additional wk (originally 1 week only). Will f/u as scheduled on 10/10 @ 1130A. Bhupinder to notify TM while @ WH. documented in this encounter Plan of Treatment Not on file documented as of this encounter Visit Diagnoses Not on filedocumented in this encounter Care Teams Floor Coverings Salesperson Relationship Specialty Start Date End Date Noah Wagner [place] [address] [place] [address] PCP - General Family Medicine 04/07/20 documented as of this encounter
--- OUTSIDE RECORDS SUMMARY | 2024-04-19 16:20 | XMS_ITS | Encounter Summary ---
Author Organization [facility] Address [address] [place], [place] [address] Phone CareEverywhereSuppor [email or web address] Care Team Providers Care Test Developer Name Role Phone Noah Wagner Primary Care Provider [phone] Encounter Details Date Type Department Care Team (Late st Contact Info) Description 06/13/[address] [place] [address] Mary Dwyer RN [address] [place] [address] Social History Tobacco Use Types [...] scheduled a RTW appt. Mary Dwyer RN A CONSULTANT OUTSIDE SALES documented in this encounter Plan of Treatment Not on file documented as of this encounter Visit Diagnoses Not on filedocumented in this encounter Care Teams Test Developer Relationship Specialty Start Date End Date Noah Wagner [facility] [address] [address] PCP - General Family Medicine 04/07/20 documented as of this encounter
--- OUTSIDE RECORDS SUMMARY | 2024-04-19 16:20 | XMS_ITS | Encounter Summary ---
Author Organization [facility] Address [address] [place], [place] [address] Phone CareEverywhereSuppor [email or web address] Care Team Providers Care Security Vehicle Patrol Officer Name Role Phone Noah Wagner Primary Care Provider [phone] Encounter Details Date Type Department Care Team (Latest Contact Info) Description 09/15/2023 9:30 AM EDT Office Visit [place] [address] [facility] [address] [place] [address] Charu West, HOME CARE CHAPLAIN [address] [place] [address] Encounter for other administrative examinations [...] for personal return to work. WD ID: [id number] Employer: [email or web address]: [id number] Description: PWT Shift: 1st Full-time GL and #: Srinivasan Abdi LDW: 06/03/23 06/03/23 PROCEDURE: 06/03/23 , Cardiac stent placement , : Dashboard Developer : Dr. Romero (previous ) Current Dashboard Developer : Dr. Barillas ( [facility]). RELEASE: Pending PMLOA. Off for continue CP and multiple stent placements, cardiac and renal. Reports initially cathwith one stent on Jun 03, at [place]. Repeated cath in Jun ~ 06/27/23 per new molecular biology professor , Dr. Boogie ( at [facility]). 4 to heart and one to Kidney [...] off work since 06/03. Emergent stent @ [facility]. Ongoing issues. To [facility].New molecular biology professor. 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 Also had Stage 3 renal disease. Had renal stent. Creatinine much improved. Here to discuss RTW. PCP and molecular biology professor following TM. PCP communicating with Claude. TM states he has discussed RTW with her and she feels if he is allowed a reintro she will release him 09/20. Still has mild intermittent chest pain but feeling much better. Fatigue improving. No SOA or dizziness. No longer smoking. 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 History Reviewed: Allergies Meds Problems Med Hx [...] artery documented in this encounter Care Teams Security Vehicle Patrol Officer Relationship Specialty Start Date End Date Noah [address] [address] PCP - General Family Medicine 04/07/20 documented as of this encounter
--- OUTSIDE RECORDS SUMMARY | 2024-04-19 16:20 | XMS_ITS | Encounter Summary ---
Author Organization [facility] Address [address] [place], [place] [address] Phone CareEverywhereSuppor [email or web address] Care Team Providers Care Life Science Technician Name Role Phone Noah Wagner Primary Care Provider [phone] Encounter Details Date Type Department Care Team (Late st Contact Info) Description 06/08/[address] [place] [address] Mary Dwyer RN [address] [place] [address] Social History Tobacco Use Types [...] about scheduling an appt. Mary Dwyer RN OR PROJECT ARCHITECT documented in this encounter Plan of Treatment Not on file documented as of this encounter Visit Diagnoses Not on filedocumented in this encounter Care Teams Life Science Technician Relationship Specialty Start Date End Date Noah Wagner [facility] [address] [address] PCP - General Family Medicine 04/07/20 documented as of this encounter
--- OUTSIDE RECORDS SUMMARY | 2024-04-19 16:20 | XMS_ITS | Encounter Summary ---
Author Organization [facility] Address [address] [place], [place] [address] Phone CareEverywhereSuppor [email or web address] Care Team Providers Care Television Repairer Name Role Phone Noah Wagner Primary Care Provider [phone] Encounter Details Date Type Department Care Team (Late st Contact Info) Description 09/20/[address] [place] [address] Mary Dwyer RN [address] [place] [address] Social History Tobacco Use Types [...] 09/20/2023 3:25 PM EDT Returned call to bridge/structure inspection team leader to other number [phone]. He has been notified of new work conditioning date d/t medical release date from PCP is 09/27. [facility] with Sherman West APRN 10/10 11:30 am. Reviewed where to go for conditioning. Mary Dwyer RN documented in this encounter Plan of Treatment Not on file documented as of this encounter Visit Diagnoses Not on filedocumented in this encounter Care Teams Television Repairer Relationship Specialty Start Date End Date Noah Wagner[address] [address] PCP - General Family Medicine 04/07/20 documented as of this encounter
--- OUTSIDE RECORDS SUMMARY | 2024-04-19 16:21 | XMS_ITS | Encounter Summary ---
Author Organization [facility] Address [address] [place], [place] [id number] Phone CareEverywhereSuppor [email or web address] Care Team Providers Care Textile Cutting Machine Operator Name Role Phone Unavailable Primary Care Provider Unavailabl e Encounter Details Date Type Department Care Team (Late st Contact Info) Description 10/12/[address] [place] [address] Mary Dwyer RN [address] [place] [address] Social History Tobacco Use Types [...] px per V>O.- DR. Murphy. Called to [facility] in [facility]. Px: Tramadol 50 mg 1 PO Q HS prn for chronic neck pain. # 20 no RF. TM aware that [facility] called in px today. documented in this encounter Plan of Treatment Not on file documented as of this encounter Visit Diagnoses Not on filedocumented in this encounter
--- OUTSIDE RECORDS SUMMARY | 2024-04-19 16:21 | XMS_ITS | Encounter Summary ---
Author Organization [facility] Address [address] [place], [place] [id number] Phone CareEverywhereSuppor [email or web address] Care Team Providers Care Client Manager Name Role Phone Noah Wagner Primary Care Provider [phone] Encounter Details Date Type Department Care Team (Late st Contact Info) Description 04/14/2021 Telephone [facility] [address] [place] [address] Martha Zelaya, FROYLAN [address] [place] [address] Social History Tobacco Use Types [...] of : 1965 6 digit Workday ID: [id number] Shift: 1st Shift Date of Call: 04/14/2021 [...] you will need to speak with your product representative regarding coverage of that time. TM [...] Disposition: -Nurse level return to work. -Per [facility] policy, GONZÁLEZ leave will end on 04/15 at 5am. Test Reason (Select all that apply): -No test required at this time. Notes: N/A Tm advised to call back with updates, changes or as needed. -Interviewer: Marhta Zelaya 04/14/2021 [employer] documented in this encounter Plan of Treatment Not on file documented as of this encounter Visit Diagnoses Not on filedocumented in this encounter Care Teams Client Manager Relationship Specialty Start Date End Date Noah Wagner[address] [address] PCP - General Family Medicine 04/07/20 documented as of this encounter
--- OUTSIDE RECORDS SUMMARY | 2024-04-19 16:21 | XMS_ITS | Encounter Summary ---
Author Organization [facility] Address [address] [place] [address] Phone CareEverywhereSuppor [email or web address] Care Team Providers Care Peanut Butter Maker Name Role Phone Unavailable Primary Care Provider Unavailabl e Encounter Details Date Type Department Care Team (Late st Contact Info) Description 09/13/[address] [place] [address] Mary Dwyer RN [address] [place] [address] Social History Tobacco Use Types Packs/Day Years Used Date Smoking Tobacco: Every Day Smokeless Tobacco: Never Sex and Gender Information Value Date Recorded Sex Assigned at Not on file Legal Sex Male 9:26 AM CDT Gender Identity Not on file Sexual Orientation Not on file documented as of this encounter Miscellaneous Notes * Telephone Encounter - Mary Dwyre RN - 09/13/2018 8:17 AM EDT left with TM that I talked with Fela at Dr. Perales's office again yesterday. She was statingif TM [...]
--- OUTSIDE RECORDS SUMMARY | 2024-04-19 16:21 | XMS_ITS | Encounter Summary ---
Author Organization [facility] Address [address] [place] [address] Phone CareEverywhereSuppor [email or web address] Care Team Providers Care Elect Equip Maint Eng Name Role Phone Noah Wagner Primary Care Provider [phone] Reason for Visit * Reason Onset Date Comments Screening-Infectious Disease 06/01/2021 Encounter Details Date Type Department Care Team (Late st Contact Info) Description [facility] [address] [facility] [address] [place] [address] Fior Mejía, FROYLAN Social History [...] Miscellaneous Notes * Telephone Encounter - Fior Mejía RN - 06/01/2021 6:27 PM EST COVID-19 Initial Telephone Screening Documentation for Arjun Melton, date of : 1965, on 06/01/2021. 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 no Do you have any household members who work on site at [employer]? -No Type of mask worn by TM: Disposable Vaccine Status: Has TM been vaccinated?: Yes. TM is partially vaccinated. Information for Testing/contact tracing purposes: Date of : 1965 County of residence: [place] [address] Ethnicity: Race: White Social security number: [phone] [...] if applicable: TM talked to RN at [employer] [facility] [employer] and was given the instructions to test [...] of GONZÁLEZ Leave Expectations: Yes Disposition: -Per [facility] policy, GONZÁLEZ leave will end on 06/05/21 at 1159pm. -Tm advised to call back with updates, changes or as needed. Next step: Return to work appointment Next step date: 06/05/21 Anticipated RTW date: 06/06/21 -Interviewer: Fior Mejía, MSN, RN 06/01/2021 SIVE WATER JET CUTTER OPERATOR SIVE WATER JET CUTTER OPERATOR documented in this encounter Plan of Treatment Not on file documented as of this encounter Visit Diagnoses Not on filedocumented in this encounter Care Teams Elect Equip Maint Eng Relationship Specialty Start Date End Date Noah Wagner [address] [place], [place] [phone] PCP - General Family Medicine 04/07/20 documented as of this encounter
--- OUTSIDE RECORDS SUMMARY | 2024-04-19 16:21 | XMS_ITS | Encounter Summary ---
Author Organization [facility] Address [address] [place], [place] [id number] Phone CareEverywhereSuppor [email or web address] Care Team Providers Care Coach Operator Name Role Phone Unavailable Primary Care Provider Unavailabl e Encounter Details Date Type Department Care Team (Late st Contact Info) Description 09/21/[address] [place] [address] Mary Dwyer RN [address] [place] [address] Social History Tobacco Use Types [...]
--- OUTSIDE RECORDS SUMMARY | 2024-04-19 16:21 | XMS_ITS | Encounter Summary ---
Author Organization [facility] Address [address] [place] [address] Phone CareEverywhereSuppor [email or web address] Care Team Providers Care Boiler House Inspector Name Role Phone Bernard Noah Primary Care Provider [phone] Encounter Details Date Type Department Care Team (Late st Contact Info) Description 04/07/2021 Telephone [facility] [address] [place] [address] Ty Kovacs RN Social History Tobacco [...] of : 1965 6 digit Workday ID: [id number] Contact number: Is the TM on site at the time of the call: Yes. , TM called from their break room. 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 no Do you have any household members who work on site at [employer]? -No Type of mask worn by TM: Disposable Vaccine Status: Has TM been vaccinated?: Yes. TM is partially vaccinated. Type of vaccine: Moderna. Date of 1st dose of vaccination: December 2020 . Date of 2nd of vaccination: Pending . Information for Testing/contact tracing purposes: Date of : 1965 County of residence: [place] [id number] Ethnicity: Race: White Last 4 digits of [...] TM to call the nurse line at [phone] as needed. -TM provided with the nurse [...] -Interviewer: Ty Kovacs RN 04/07/2021, 9:48 AM ROENTEROLOGY NURSE documented in this encounter Plan of Treatment Not on file documented as of this encounter Visit Diagnoses Not on filedocumented in this encounter Care Teams Boiler House Inspector Relationship Specialty Start Date End Date Noah Wagner [place] [address] [facility] [address] PCP - General Family Medicine 04/07/20 documented as of this encounter
--- OUTSIDE RECORDS SUMMARY | 2024-04-19 16:21 | XMS_ITS | Encounter Summary ---
Author Organization [facility] Address [address] [place] [address] Care Team Providers Care Verification Lead Name Role Phone Noah Wagner MD Primary Care Provider [phone] Reason for Visit * (Routine) - Closed Specialty Diagnoses / Procedures Referred By Renee meza Referred To Contact Radiology Diagnoses S/P cervical spinal fusion Cervical spondylosis with radiculopathy Procedures XR Spine Cervical 2 View Ania Bliss PA-C Phone: tel: fax: Referral ID Status Reason Start Date Expiration Date Visits Re quested Visits Authorized [id number] Closed 05/21/2020 05/21/2021 1 1 Encounter Details Date Type Department Care Team (Latest Contact Info) Description 09/26/2020 12:53 PM EDT - 09/26/2020 11:59 PM EDT Hospital Encounter [address] [phone] Ania Bliss PA-C [address] [place] [address] Discharge Disposition: Home or Self Care Social [...] 09/29/2020 5:[address] Huang Avila. us Ania Bliss PA-C IMG DIAGNOSTIC IMAGING ORD ERABLES Final Result documented in this encounter Visit Diagnoses Not on filedocumented in this encounter Care Teams Verification Lead Relationship Specialty Start Date End Date Noah Wagnre MD [address] [place] [address] PCP - General Family Medicine 11/05/15 documented as of this encounter
--- OUTSIDE RECORDS SUMMARY | 2024-04-19 16:21 | XMS_ITS | Encounter Summary ---
Author Organization [facility] Address [address] [place] [id number] Care Team Providers Care Nursing Home Administrator Name Role Phone Noah Wagner MD Primary Care Provider [phone] Encounter Details Date Type Department Care Team (Latest Contact Info) Description 04/10/2024 Travel Social History Tobacco Use Types Packs/Day [...] on filedocumented in this encounter Care Teams Nursing Home Administrator Relationship Specialty Start Date End Date Noah Wagner MD [address] [place] [address] PCP - General Family Medicine 11/05/15 documented as of this encounter
--- OUTSIDE RECORDS SUMMARY | 2024-04-19 16:21 | XMS_ITS | Encounter Summary ---
Author Organization [facility] Address [address] [place], [place] [id number] Phone CareEverywhereSuppor [email or web address] Care Team Providers Care Small Lot Operator Name Role Phone Noah Wagner Primary Care Provider [phone] Reason for Visit * Reason Comments Screening-Infectious Disease Encounter Details Date Type Department Care Team (Late st Contact Info) Description 04/07/2021 12:30 PM EST Telemedicine [facility] [address] [place] [address] Bartolo Marino PA [address] [place] [address] Exposure to severe acute respiratory [...] test. To ER as needed for worsening. ONAL COMPUTER NETWORK ENGINEER documented in this encounter Progress Notes * [...] I can receive a copy of the [facility] Reocar Notice of Privacy Practices from the [employer] website ([email or web address]) and that my protected health information may only be shared as outlined in that Notice. Response:yes I understand that this Consent for Treatment is valid from today's date until: the provider-patientrelationship is terminated; a new healthcare circulation representative is appointed; or I revoke consent. Response: yes Are you currently in the state of [place]? yes Are you in a private space, [...] No Received covid-19 vaccine? (if yes include camera engineer, date of doses) yes, 1st juan carlosa [...] DATP. Covid-19 test to be performed at [facility] emergency department testing site by [facility] following provider telephone visit andscreening. Test to be sent to [facility] lab. If negative, TM will need 6 day post exposure test to be scheduled on 04/13/21. ONAL COMPUTER NETWORK ENGINEER documented in this encounter Plan of Treatment [...] type documented in this encounter Care Teams Small Lot Operator Relationship Specialty Start Date End Date Noah Wagner [address] [place] [address] [facility] [id number] PCP - General Family Medicine 04/07/20 documented as of this encounter
--- OUTSIDE RECORDS SUMMARY | 2024-04-19 16:21 | XMS_ITS | Encounter Summary ---
Author Organization [facility] Address [address] [place] [address] Phone CareEverywhereSuppor [email or web address] Care Team Providers Care Research & Analytics Manager Name Role Phone Unavailable Primary Care Provider Unavailabl e Encounter Details Date Type Department Care Team (Late st Contact Info) Description 09/21/[address] [place] [address] Mary Dwyer RN [address] [place] [address] Social History Tobacco Use Types [...] office to review and spoke with Diaz's student assistant a few times. TM states he [...]
--- OUTSIDE RECORDS SUMMARY | 2024-04-19 16:21 | XMS_ITS | Encounter Summary ---
Author Organization [facility] Address [address] [place] [address] Care Team Providers Care Corrugated Fastener Driver Name Role Phone Noah Wagner MD Primary Care Provider [phone] Encounter Details Date Type Department Care Team (Late st Contact Info) Description 05/21/2020 Documentation [facility] [address] [facility] [address] [place] [address] Ania Bliss PA-C [address] [place] [address] Social History Tobacco Use Types Packs/Day Years [...] on filedocumented in this encounter Care Teams Corrugated Fastener Driver Relationship Specialty Start Date End Date Noah Wagner MD [address] [place] [address] PCP - General Family Medicine 11/05/15 documented as of this encounter
--- OUTSIDE RECORDS SUMMARY | 2024-04-19 16:21 | XMS_ITS | Encounter Summary ---
Author Organization [facility] Address [address] [place], [place] [phone] Phone CareEverywhereSuppor [email or web address] Care Team Providers Care Orthodontic Laboratory Technician Name Role Phone Unavailable Primary Care Provider Unavailabl e Reason for Visit * Reason Onset Date Comments Med Refill 09/21/2018 Encounter Details Date Type Department Care Team (Late st Contact Info) Description 09/21/[address] [place] [address] Mary Dwyer, RN [address] [place] [address] Social History Tobacco Use Types [...] per TM. TM wants px filled at [facility] [place]. I told him I would call him if we are not going to refill the px. Mary Dwyer RN documented in this encounter Plan of Treatment Not on file documented as of this encounter Visit Diagnoses Not on filedocumented in this encounter
--- OUTSIDE RECORDS SUMMARY | 2024-04-19 16:21 | XMS_ITS | Encounter Summary ---
Author Organization [facility] Address [address] [place] [address] Care Team Providers Care Director Software Quality Assurance Name Role Phone Noah Wagner MD Primary Care Provider [phone] Reason for Visit * Reason Comments Follow-up 4 month Encounter Details Date Type Department Care Team (Latest Contact Info) Description 09/26/2020 1:30 PM EDT Office Visit [facility] [address] [place] [address] Ania Bliss, BOONE [address] [place] [address] S/P cervical spinal fusion (Primary Dx); Cervical [...] water. ? Keep raw meats separate from [id number]-[id number]-tzm foods, such as fruits and vegetables. ? receptionist scheduler, meat, poultry, and eggs to the recommended [...] include 1 slice of bread, 1 cup knywc-bc-dys cereal, 3 cups popcorn, or ?? cup [...] U.S. nutrition guidelines. For more information, visit Mappyfriends.gov. Exact amounts may vary based on your [...] provider. Document Revised: 08/14/2018 Document Reviewed: 08/14/2018 [employer] Patient Education ?? 2020 [employer]. documented in this encounter Progress Notes * Ania Bliss PA-C - 09/26/2020 1:30 PM EDT Patient: Arjun Melton : 1965 GENDER: male Primary Care Provider: Noah Wagner MD Requesting Provider: As above History Chief Complaint: neck and right shoulder pain History of Present Illness: Mr. Melton is a 54-year-old gentleman who works at [employer]. ??He is known to Dr. Perales's??service for [...] C3- 4; Surgeon: Victoriano Perales MD; Location: [facility]; Service: Neurosurgery; Laterality: N/A; ??? COLONOSCOPY apprx [...] 25.0-25.9,adult documented in this encounter Care Teams Director Software Quality Assurance Relationship Specialty Start Date End Date Noah Wagner MD [address] [place] [address] PCP - General Family Medicine 11/05/15 documented as of this encounter
--- OUTSIDE RECORDS SUMMARY | 2024-04-19 16:21 | XMS_ITS | Encounter Summary ---
Author Organization [facility] Address [address] [place], [place] [phone] Phone CareEverywhereSuppor [email or web address] Care Team Providers Care Religion Department Chair Name Role Phone Noah Wagner Primary Care Provider [phone] Encounter Details Date Type Department Care Team (Late st Contact Info) Description 04/08/2021 Telephone [facility] [address] [place] [address] Renea Kovacs, FROYLAN [address] [place] [address] Social History Tobacco Use Types [...] directing TM to call NL back at [phone]. Renea Kovacs, RN DREN TEACHER documented in this encounter Plan of Treatment Not on file documented as of this encounter Visit Diagnoses Not on filedocumented in this encounter Care Teams Religion Department Chair Relationship Specialty Start Date End Date Noah Wagner [address] [address] PCP - General Family Medicine 04/07/20 documented as of this encounter
--- OUTSIDE RECORDS SUMMARY | 2024-04-19 16:21 | XMS_ITS | Encounter Summary ---
Author Organization [facility] Address [address] [place], [place] [address] Phone CareEverywhereSuppor [email or web address] Care Team Providers Care Superintendent Maintenance Airports Name Role Phone Unavailable Primary Care Provider Unavailabl e Encounter Details Date Type Department Care Team (Late st Contact Info) Description 09/06/[address] [place] [address] Mary Dwyer, RN [address] [place] [address] Social History Tobacco Use Types [...]
--- OUTSIDE RECORDS SUMMARY | 2024-04-19 16:21 | XMS_ITS | Encounter Summary ---
Author Organization [facility] Address [address] [place] [address] Care Team Providers Care Wire Coating Operator Metal Name Role Phone Noah Wagner MD Primary Care Provider [phone] Reason for Referral * MRI/CAT/PET Scan (Routine) - Authorized Specialty Diagnoses / Procedures Referred By Contac t Referred To Contact Radiology Diagnoses Mesenteric artery syndrome (superior) Procedures CT Angiogram Abdomen Pelvis With & Without Contrast Jonh Douglas MD [address] [place] [address] Phone: tel: fax: Referral ID Status Reason Start Date Expiration Date V isits Requested Visits Authorized [id number] Authorized 04/03/2024 05/02/2024 1 14 Reason for Visit * MRI/CAT/PET Scan (Routine) - Authorized Specialty Diagnoses / Procedures Referred By Contac t Referred To Contact Radiology Diagnoses Mesenteric artery syndrome (superior) Procedures CT Angiogram Abdomen Pelvis With & Without Contrast John Douglas MD [address] [place] [address] Phone: tel: fax: Referral ID Status Reason Start Date Expiration Date V isits Requested Visits Authorized [id number] Authorized 04/03/2024 05/02/2024 1 14 Encounter Details Date Type Department Care Team (Latest Contact Info) Description 04/10/2024 3:06 PM EST - 04/10/2024 11:59 PM EST Hospital Encounter [facility] AT [address] [address] John Douglas MD [address] [place] [address] Mesenteric artery syndrome (superior) Discharge Disposition: Home or Self Care Social [...] Procedure Name Priority Date/Time Associated Diagnosis Comments CT ANGIOGRAM ABDOMEN PELVIS Routine 04/10/2024 3:51 PM EST Mesenteric artery syndrome (superior) POCT CREATININE Routine 04/10/2024 3:36 PM EST documented in this encounter Results * CT Angiogram Abdomen Pelvis (04/10/2024 3:51 PM EST) Anatomical Region Laterality Modality Abdomen, Vascular, Pelvis N/A Comput ed Tomography 04/13/2024 1:44 PM EST Impressions 04/13/2024 1:59 PM EST Impression: 1.No significant mesenteric arterial stenosis identified. 2.There is a left renal artery stent present, with mild to moderate in-stent restenosis in the distal portion. 3.Additional vascular and nonvascular findings as given above. 4.There is a 1.9 cm low-density nodule in the right adrenal which is probably an adenoma. 5.Additional findings as given above. 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 Comparison: None available. Technique: CTA of the abdomen and pelvis was performed after the uneventful intravenous administration of Isovue nonionic. Reconstructed coronal and sagittal images were also obtained. In addition, a 3-D volume rendered image was created for interpretation. Automated exposure control and iterative reconstruction methods were used. Findings: Vascular: Celiac trunk and SMA are widely patent. Partial replaced right hepatic variant incidentally noted. The BIPIN is patent without stenosis. The right renal artery is patent without stenosis. There is a stent present in the left renal artery, with mild to moderate in-stent restenosis in the distal portion. The abdominal aorta is nonaneurysmal. There is atheromatous plaquing noted. No significant aortoiliac stenosis identified. Visualized proximal femoral segments are free of significant stenosis. Nonvascular: Large calcified granuloma in the left lung base. There are calcified granulomatous changes in the spleen. The pancreas, left adrenal have a grossly normal appearance. There is a 1.9 cm low-density nodule in the right adrenal which may be due to an adenoma. The liver and gallbladder are grossly unremarkable. The kidneys have a grossly normal appearance. Prostate is enlarged. Urinary bladder is mildly thick-walled, which may be due to muscular hypertrophy from bladder outlet obstruction or cystitis. Correlate clinically. No adenopathy identified in the abdomen or pelvis. There is circumferential thickening of the distal esophagus which is nonspecific. There is no evidence of bowel obstruction, free air or free fluid. No evidence of duodenal obstruction as it crosses between the SMA and aorta. No significant left renal vein narrowing as it crosses between the SMA and aorta. Appendix is not identified. Small metallic density noted in the cecum. No pericolonic inflammatory change identified. There is degenerative change in the spine, worst at L2-3. No aggressive osseous lesions are identified. 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 Comparison: None available. Technique: CTA of the abdomen and pelvis was performed after theuneventful intravenous administration of Isovue nonionic. Reconstructedcoronal and sagittal images were also obtained. In addition, a 3-D volumerendered image was created for interpretation. Automated exposure control and iterative reconstructionmethods were used. Findings: Vascular: Celiac trunk and SMA are widely patent. Partial replaced right hepaticvariant incidentally noted. The BIPIN is patent without stenosis. The rightrenal artery is patent without stenosis. There is a stent present in theleft renal artery, with mild to moderate in-stent restenosis in the distal portion. The abdominal aorta isnonaneurysmal. There is atheromatous plaquing noted. No significantaortoiliac stenosis identified. Visualized proximal femoral segments arefree of significant stenosis. Nonvascular: Large calcified granuloma in the left lung base. There are calcifiedgranulomatous changes in the spleen. The pancreas, left adrenal have agrossly normal appearance. There is a 1.9 cm low-density nodule in theright adrenal which may be due to an adenoma. The liver and gallbladder are grossly unremarkable. The kidneyshave a grossly normal appearance. Prostate is enlarged. Urinary bladder ismildly thick-walled, which may be due to muscular hypertrophy from bladderoutlet obstruction or cystitis. Correlate clinically. No adenopathy identified in the abdomen or pelvis. There is circumferential thickening of the distal esophagus which isnonspecific. There is no evidence of bowel obstruction, free air or freefluid. No evidence of duodenal obstruction as it crosses between the SMAand aorta. No significant left renal vein narrowing as it crosses between the SMA and aorta. Appendix is not identified. Small metallic density noted in the cecum. Nopericolonic inflammatory change identified. There is degenerative change in the spine, worst at L2-3. No aggressiveosseous lesions are identified. IMPRESSION: Impression: 1.No significant mesenteric arterial stenosis identified. 2.There is a left renal artery stent present, with mild to moderatein-stent restenosis in the distal portion. 3.Additional vascular and nonvascular findings as given above. 4.There is a 1.9 cm low-density nodule in the right adrenal which isprobably an adenoma. 5.Additional findings as given above. Electronically Signed: Bernabe Santana MD 04/13/2024 1:59 PM EST Workstation ID: [id number] John Douglas MD IMG CT ORDERABLES Final Result * (ABNORMAL) POC Creatinine (04/10/2024 3:36 PM EST) Creatinine 1.40(H) 0.60 - 1.30 mg/dL 04/10/2024 4:06 PM EST [facility] Comment:Serial Number: [id number] 7Operator: [id number] Blood 04/10/2024 3:36 PM EST 04/10/2024 4:06 PM EST John Douglas MD POINT OF CARE TEST ORDERABLES Fi nal Result [facility]
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
--- OUTSIDE RECORDS SUMMARY | 2024-04-19 16:21 | XMS_ITS | Encounter Summary ---
Author Organization [facility] Address [address] [id number] Care Team Providers Care Customer Engagement Representative Name Role Phone Noah Wagner MD Primary Care Provider [phone] Reason for Visit * Reason Onset Date Comments JUSTINA 10/02/2020 Encounter Details Date Type Department Care Team (Late st Contact Info) Description 10/02/2020 Telephone [facility]UROS[facility]ERY [address] [address] Ania Bliss, BOONE [address] [place] [address] JUSTINA Social History Tobacco Use Types Packs/Day [...] PM EDT ARABELLA Simpson/ TANYA W/C FOR [facility] WOULD LIKE TO HAVE THE LAST OV 09/26 FAXED TO HER. PLEASE ADVISE [phone] FAX [phone] - ARABELLA documented in this encounter Plan of Treatment Not on file documented as of this encounter Visit Diagnoses Not on filedocumented in this encounter Care Teams Customer Engagement Representative Relationship Specialty Start Date End Date Noah Wagner MD [address] [place] [address] PCP - General Family Medicine 11/05/15 documented as of this encounter
--- OUTSIDE RECORDS SUMMARY | 2024-04-19 16:21 | XMS_ITS | Encounter Summary ---
Author Organization [facility] Address [address] [place] [id number] Care Team Providers Care Test And Research Reactor Operator Name Role Phone Noah Wagner MD Primary Care Provider [phone] Reason for Visit * Reason Onset Date Comments OVERMYER - PT ORDER 05/27/2020 Encounter Details Date Type Department Care Team (Late st Contact Info) Description 05/27/2020 Telephone [facility] [address] [address] Ania Bliss, BOONE [address] [place] [address] OVERMYER - PT ORDER Social History Tobacco [...] CUNHA Relationship: PARTNER Best call back number: [phone] What orders are you requesting (i.e. lab or imaging): PHYSICAL THERAPY In what timeframe would the patient need to come in: DORIAN, HIS LAST APPOINTMENT WITH PHYSICAL THERAPY IS THIS Tuesday Where will you receive your lab/imaging services: [facility] Additional notes: THE ORDER CAN BE FAXED TO [phone] documented in this encounter Plan of Treatment Not on file documented as of this encounter Visit Diagnoses Not on filedocumented in this encounter Care Teams Test And Research Reactor Operator Relationship Specialty Start Date End Date Noah Wagner MD [address] [place] [address] PCP - General Family Medicine 11/05/15 documented as of this encounter
--- OUTSIDE RECORDS SUMMARY | 2024-04-19 16:21 | XMS_ITS | Encounter Summary ---
Author Organization [facility] Address [address] [place], [place] [id number] Phone [email or web address] [email or web address] Care Team Providers Care Business Solutions Director Name Role Phone Unavailable Primary Care Provider Unavailabl e Encounter Details Date Type Department Care Team (Late st Contact Info) Description 09/07/[address] [place] [address] Mary Dwyer, RN [address] [place] [address] Social History Tobacco Use Types [...] fax the Genex Denial letter to Diaz's dental assistant/proprietary trader yesterday. No call back today. Awaiting a call back about follow up apt. TM told if questions to call Diaz's office sooner. Mary Dwyer RN documented in this encounter Plan of Treatment Not on file documented as of this encounter Visit Diagnoses Not on filedocumented in this encounter
--- OUTSIDE RECORDS SUMMARY | 2024-04-19 16:21 | XMS_ITS | Encounter Summary ---
Author Organization [facility] Address [address] [place] [address] Care Team Providers Care Host Coordinator Name Role Phone Noah Wagner MD Primary Care Provider [phone] Reason for Referral * (Routine) - Closed Specialty Diagnoses / Procedures Referred By Renee t Referred To Contact Radiology Diagnoses S/P cervical spinal fusion Cervical spondylosis with radiculopathy Procedures XR Spine Cervical 2 View Ania Bliss PA-C Phone: tel: fax: Referral ID Status Reason Start Date Expiration Date Visits Re quested Visits Authorized [id number] Closed 05/21/2020 05/21/2021 1 1 Reason for Visit * Reason Comments Follow-up Encounter Details Date Type Department Care Team (Latest Contact Info) Description 05/21/2020 1:45 PM EST Office Visit [facility] [address] [place] [address] Ania Bliss PA-C [address] [place] [address] S/P cervical spinal fusion (Primary Dx); Cervical [...] encounter Patient Instructions * Patient Instructions* Ania lBiss PA-C - 05/21/2020 1:45 PM EST Images [...] water. ? Keep raw meats separate from kaxvu-cz-lix foods, such as fruits and vegetables. ? yolk spray drier, meat, poultry, and eggs to the recommended [...] include 1 slice of bread, 1 cup kvpyc-hp-tjg cereal, 3 cups popcorn, or ?? cup [...] U.S. nutrition guidelines. For more information, visit choosemyplate.gov. Exact amounts may vary based on your [...] provider. Document Revised: 08/14/2018 Document Reviewed: 08/14/2018 [employer] Patient Education ?? 2020 [employer]. documented in this encounter Progress Notes * Ania Bliss PA-C - 05/21/2020 1:45 PM EST Patient: Arjun Melton : 1965 GENDER: male Primary Care Provider: Noah Wagner MD Requesting Provider: As above History Chief Complaint: neck and right shoulder pain History of Present Illness: Mr. Melton is a 54-year-old gentleman who works at [employer]. He is known to Dr. Perales's service [...] C3- 4; Surgeon: Victoriano Perales MD; Location: [facility]; Service: Neurosurgery; Laterality: N/A; ??? COLONOSCOPY [...] 25.0-25.9,adult documented in this encounter Care Teams Host Coordinator Relationship Specialty Start Date End Date Noah Wagner MD [address] [place] [address] PCP - General Family Medicine 11/05/15 documented as of this encounter
--- OUTSIDE RECORDS SUMMARY | 2024-04-19 16:21 | XMS_ITS | Encounter Summary ---
Author Organization [facility] Address [address] [place] [address] Phone [email or web address] [email or web address] Care Team Providers Care Volunteer Services Coordinator Name Role Phone Unavailable Primary Care Provider Unavailabl e Encounter Details Date Type Department Care Team (Late st Contact Info) Description 07/31/[address] [place] [address] Mary Dwyer, RN [address] [place] [address] Social History Tobacco Use Types [...] Indef. Restrictions. TM offered to transfer to [facility] and he declined b/c he only has [...]
--- OUTSIDE RECORDS SUMMARY | 2024-04-19 16:21 | XMS_ITS | Encounter Summary ---
Author Organization [facility] Address [address] [place], [place] [address] Phone [email or web address] [email or web address] Care Team Providers Care Wire Photo Operator News Name Role Phone Noah Wagner Primary Care Provider [phone] Reason for Visit * Reason Comments Eye Exam Encounter Details Date Type Department Care Team (Late st Contact Info) Description 09/17/2020 4:30 PM EDT Office Visit [facility] [address] [place] [address] Librado Rodríguez, MELISSA [address] [place] [address] Myopia of both eyes (Primary [...] 8/8 Wearing Rx Wearing Rx Sphere Cylinder Alpha Right -1.75 -1.25 155 Left -1.25 -1.25 035 Keratometry Keratometry (Automated) K1 Alpha K2 Alpha Mires Right 42.50 151 43.75 061 Normal Left 43.00 030 44.25 120 Normal Manifest Refraction Manifest Refraction Sphere Cylinder Alpha Dist VA Add Near VA Right -1.25 -1.00 155 20/20 +2.00 J1 Left -1.25 -1.50 035 20/20 +2.00 J1 Eyeglass Final Rx Eyeglass Final Rx Sphere Cylinder Alpha Dist VA Right -1.25 -1.00 155 20/20 Left -1.25 -1.50 035 20/20 Type: SVL - distance Expiration Date: 09/18/2021 Eyeglass Final Rx #2 Sphere Cylinder Alpha Dist VA Right +0.75 -1.00 155 20/20 [...] Primary documented in this encounter Care Teams Wire Photo Operator News Relationship Specialty Start Date End Date Noah Wagner [address] [place] [address] PCP - General Family Medicine 04/07/20 documented as of this encounter
--- OUTSIDE RECORDS SUMMARY | 2024-04-19 16:21 | XMS_ITS | Encounter Summary ---
Author Organization [facility] Address [address] [place], [place] [phone] Phone [email or web address] [email or web address] Care Team Providers Care Horse Race Timer Name Role Phone Unavailable Primary Care Provider Unavailabl e Reason for Visit * Reason Comments Incentive - Biometric Screening Bio Scre ening Encounter Details Date Type Department Care Team (Late st Contact Info) Description 10/17/2018 8:30 AM EDT Biometric [facility] [address] [place] [address] [address] [place] [address] Pepito Quiroz MD [address] [place] [address] Social History Tobacco Use Types [...] Campaign Mass Entry Documentation Event Performed by: [facility] Staff Director Search Marketing Strategies Completed by: Luzma Burton MA Arjun Melton [...] control performed correctly. Biometrics Results Reviewed By: [facility] Staff documented in this encounter Plan [...]
--- OUTSIDE RECORDS SUMMARY | 2024-04-19 16:21 | XMS_ITS | Encounter Summary ---
Author Organization [facility] Address [address] [place], [place] [address] Phone [email or web address] [email or web address] Care Team Providers Care Configuration Management Specialist Name Role Phone Noah Wagner Primary Care Provider [phone] Reason for Visit * Reason Comments Return to Work / Duty Encounter Details Date Type Department Care Team (Latest Contact Info) Description 03/09/2021 12:00 PM EDT Office Visit [place] [address] [address] [place] [address] Charu West, GARCIA [address] [place] [address] Encounter for other administrative examinations [...] for personal return to work. WD ID: [id number] #: [id number] Employer: [employer]: [id number] Description: PWT Shift: 1st Full-time GL and #: Gloria Maxwell LDW: 12/29/20 DOS: 12/30/20 PROCEDURE: Cardiac Stent SURGEON: Dr Hercules RELEASE: 01/11/21 Have you received the COVID-19 vaccination? Partially vaccinated next injection due: pending PMLOA. TM off work r/t cardiac stent. TM states he was having chest pain which prompted him to see [facility]. TM states stress test done there and results prompted him to be sent to [facility] for stent. TM states does not know [...] stent documented in this encounter Care Teams Configuration Management Specialist Relationship Specialty Start Date End Date Noah Wagner [address] [address] [id number] PCP - General Family Medicine 04/07/20 documented as of this encounter
--- OUTSIDE RECORDS SUMMARY | 2024-04-19 16:21 | XMS_ITS | Clinical Summary ---
Author Organization [facility] Address [address] [place] [address] Care Team Providers Care Community Coordinator Name Role Phone Noah Wagner MD Primary Care Provider Allergies No known active allergies Medications metoprolol [...] cervical int ervertebral disc without myelopathy 10/08/2015 Encounters Date Type Department Care Team Description 04/10/2024 3:06 PM EST - 04/10/2024 11:59 PM EST Hospital Encounter [facility] [place] [address] John Douglas MD Mesenteric artery syndrome (superior) Discharge Disposition: Home or Self Care 04/10/2024 Travel from Last 3 Months Family History Relation Name Status Comments Brother [...] 09/26/2020 1:28 PM EDT Plan of Treatment Health Maintenance Due Date Last Done Comments COLOGUARD 1965 COLON CANCER SCREENING 5 YEA R SIGMOIDOSCOPY 1965 COLONOSCOPY 1965 COLORECTAL CANCER SCREENING 1965 CT COLONOGRAPHY 1965 FECAL OCCULT BLOOD TEST 1965 FIT Testing (1 year) 1965 Pneumococcal Vaccine 0-64 (1 of 2 - PCV) 09/18/1969 ANNUAL PHYSICAL 06/20/2018 HEPATITIS C SCREENING 06/20/2018 INFLUENZA VACCINE 11/14/2023 02/18/2022, , 03/04/2020, Additional history exists COVID-19 Vaccine (2 - 2023-2 5 season) 2024 08/20/2020 TDAP/TD VACCINES (5 - Td or Tdap) 12/12/2031 12/11/2021, 04/13/2021, 07/25/2019, Additional history exists ZOSTER VACCINE Completed 11/01/2022, 08/12/2022 Medical Devices Implanted Type Area Program Counselor Device Identifier Shelf Expiration Date Model / Serial / Lot Implant Implant Description:Fusion cervical Kt Seal Hemos Abs Floseal Matrx Fast/Prep 10ml - [id number] Implanted:Qty : 1 on 12/31/2019 by Victoriano Perales MD at [facility] Implant N/A: Spine Cervical [employer] [id number] / / Bone Lordotic Asr [id number] Fzd - [id number] - [id number] Implanted:Qty : 1 on 12/31/2019 by Victoriano Perales MD at [facility] Implant N/A: Spine Cervical [employer] 07/23/2022 [id number] / [id number] / Scrw St Zevo 2thrd S/Tap 3.5x13mm - [id number] Implanted:Qty : 4 on 12/31/2019 by Victoriano Perales MD at [facility] Implant N/A: Spine Cervical [employer] [id number] / / Plt Acp Zevo 1lvl 17mm Ns - [id number] Implanted:Qty : 1 on 12/31/2019 by Victoriano Perales MD at [facility] Implant N/A: Spine Cervical [employer] [id number] / / Procedures Procedure Name Priority Date/Time Associated Diagnosis Comments CT ANGIOGRAM ABDOMEN PELVIS Routine 04/10/2024 3:51 PM EST Mesenteric artery syndrome (superior) POCT CREATININE Routine 04/10/2024 3:36 PM EST from Last 3 Months Results * CT Angiogram Abdomen Pelvis (04/10/2024 [...] MD 04/13/2024 1:59 PM EST Workstation ID: [id number] Narrative 04/13/2024 1:[address] ANGIOGRAM ABDOMEN [...] MD 04/13/2024 1:59 PM EST Workstation ID: [id number] John Douglas MD IMG CT ORDERABLES Final Result * (ABNORMAL) POC Creatinine (04/10/2024 3:36 PM EST) Creatinine 1.40(H) 0.60 - 1.30 mg/dL 04/10/2024 4:06 PM EST [facility] Comment:Serial Number: [id number] 7Operator: [id number] Blood 04/10/2024 3:36 PM EST 04/10/2024 4:06 PM EST John Douglas MD POINT OF CARE TEST ORDERABLES Fi nal Result [facility]
[address] [place] [address], from Last 3 Months Insurance ([place]) [address] PPO [facility] COMPENSATION Member Subscriber Plan / Payer (Ef fective 2008-Present) Name:MeltonArjun webster Relation to Subscriber:Self Name:MeltonArjun webster Payer ID:[id number] Group ID:Not on file Type:Not on file Address: [address] [place] [id number] Care Teams Community Coordinator Relationship Specialty Start Date End Date Noah Wagner MD [address] [place] [address] PCP - General Family Medicine 11/05/15
--- OUTSIDE RECORDS SUMMARY | 2024-04-19 16:21 | XMS_ITS | Encounter Summary ---
Author Organization [facility] Address [address] [place] [address] Phone [email or web address] [email or web address] Care Team Providers Care Asp Net C Developer Name Role Phone Unavailable Primary Care Provider Unavailabl e Encounter Details Date Type Department Care Team (Late st Contact Info) Description 06/22/[address] [place] [address] Jyothi Dickerson RN [address] [place] [address] Social History Tobacco Use Types [...] should. See attached line call report. cmck AL SURGEON documented in this encounter Plan of Treatment Not on file documented as of this encounter Visit Diagnoses Not on filedocumented in this encounter
--- OUTSIDE RECORDS SUMMARY | 2024-04-19 16:21 | XMS_ITS | Encounter Summary ---
Author Organization [facility] Address [address] [place], [place] [id number] Phone [email or web address] [email or web address] Care Team Providers Care Case Maker Name Role Phone Noah Wagner Primary Care Provider [phone] Encounter Details Date Type Department Care Team (Late st Contact Info) Description 04/13/[address] [facility] [address] [place] [address] Martha Zelaya, FROYLAN [address] [place] [address] Social History Tobacco Use Types [...] TM gave alternate phone number to try; [phone]. TM scheduled for 6 day post test per Bartolo METZ instructions. BARBARA RN NSED INSURANCE SALES AGENT documented in this encounter Plan of Treatment Not on file documented as of this encounter Visit Diagnoses Not on filedocumented in this encounter Care Teams Case Maker Relationship Specialty Start Date End Date Noah Wagner [facility] [address] [address] PCP - General Family Medicine 04/07/20 documented as of this encounter
--- OUTSIDE RECORDS SUMMARY | 2024-04-19 16:21 | XMS_ITS | Encounter Summary ---
Author Organization [facility] Address [address] [place] [address] Phone [email or web address] [email or web address] Care Team Providers Care Costume Mistress Name Role Phone Unavailable Primary Care Provider Unavailabl e Encounter Details Date Type Department Care Team (Late st Contact Info) Description 06/15/[address] [place] [address] Erlinda Alejandro, COLLECTION SUPERVISOR [address] [place] [address] Social History Tobacco Use Types [...] called to ask about his RX. [facility], they state that no more than [...] at bedtime while working. Erlinda Alejandro RN RMATION SYSTEMS SECURITY MANAGER documented in this encounter Plan of Treatment Not on file documented as of this encounter Visit Diagnoses Not on filedocumented in this encounter
--- OUTSIDE RECORDS SUMMARY | 2024-04-19 16:21 | XMS_ITS | Encounter Summary ---
Author Organization [facility] Address [address] [place], [place] [address] Phone [email or web address] [email or web address] Care Team Providers Care Signal Operator Name Role Phone Noah Wagner Primary Care Provider [phone] Encounter Details Date Type Department Care Team (Late st Contact Info) Description 03/20/2021 Telephone AL[address] [place] [address] Alesha Alamo PA [address] [place] [address] Social History Tobacco Use Types [...] line 100%. Order generated and sent to [facility]. Alesha Alamo PA-C documented in this encounter Plan of Treatment Not on file documented as of this encounter Visit Diagnoses Diagnosis Physical deconditioning- Primary Muscular wasting and disuse atrophy, not elsewhere classified documented in this encounter Care Teams Signal Operator Relationship Specialty Start Date End Date Noah Wagner [address] [address] PCP - General Family Medicine 04/07/20 documented as of this encounter
--- OUTSIDE RECORDS SUMMARY | 2024-04-19 16:21 | XMS_ITS | Encounter Summary ---
Author Organization [facility] Address [address] [place], [place] [id number] Phone [email or web address] [email or web address] Care Team Providers Care Physician General Practice Name Role Phone Unavailable Primary Care Provider Unavailabl e Encounter Details Date Type Department Care Team (Late st Contact Info) Description 09/21/[address] [place] [address] Mary Dwyer, RN [address]1 [place] [address] Social History Tobacco Use Types [...] Dr. Murphy. Called to Qian villalba at [facility] . VM left with TM that I called it in and to address additional requests at f/u apt in a few weeks. Mary Dwyer RN documented in this encounter Plan of Treatment Not on file documented as of this encounter Visit Diagnoses Not on filedocumented in this encounter
--- OUTSIDE RECORDS SUMMARY | 2024-04-19 16:21 | XMS_ITS | Encounter Summary ---
Author Organization [facility] Address [address] [place], [place] [address] Phone [email or web address] [email or web address] Care Team Providers Care Legislative Correspondent Name Role Phone Unavailable Primary Care Provider Unavailabl e Encounter Details Date Type Department Care Team (Late st Contact Info) Description 09/05/[address] [place] [address] Erlinda Alejandro, WOMEN'S STUDIES LECTURER [address] [place] [address] Social History Tobacco Use Types [...] with no refills. Per Dr. Murphy to [facility] pharmacy in [facility]. Erlinda Alejandro RN documented in this encounter Plan of Treatment Not on file documented as of this encounter Visit Diagnoses Not on filedocumented in this encounter
--- OUTSIDE RECORDS SUMMARY | 2024-04-19 16:21 | XMS_ITS | Encounter Summary ---
Author Organization [facility] Address [address] [place], [place] [address] Phone [email or web address] [email or web address] Care Team Providers Care Major Account Representative Name Role Phone Noah Wagner Primary Care Provider [phone] Reason for Visit * Reason Comments Immunization Encounter Details Date Type Department Care Team (Late st Contact Info) Description 12/11/2021 2:15 PM EDT Immunization [address] [place] [address] Arlene Pires, RN [address] [place] [address] Need for Tdap vaccination (Primary [...] 56 y.o. male who presents to the [facility] 12/11/21 for Tdap immunization(s) ordered by [...] Primary Need for prophylactic vaccination with combined zegzmdlbku-sozcoqy-szdsgultm (DTP) vaccine documented in this encounter Care Teams Major Account Representative Relationship Specialty Start Date End Date Noah Wagner. [facility] [address] [address] PCP - General Family Medicine 04/07/20 documented as of this encounter
--- OUTSIDE RECORDS SUMMARY | 2024-04-19 16:21 | XMS_ITS | Encounter Summary ---
Author Organization [facility] Address [address] [id number] Care Team Providers Care Head Scorer Name Role Phone Noah Wagner MD Primary Care Provider [phone] Reason for Visit * Reason Onset Date Comments OVERMYER- CONSULT NOTES/ WORKER COMP 05/27/2020 Encounter Details Date Type Department Care Team (Late st Contact Info) Description 05/27/2020 Telephone [facility] NEUROS[facility]ERY [address] [address] Ania Bliss PA-C [address] [place] [address] OVERMYER- CONSULT NOTES/ WORKER COMP Social History Tobacco [...] for you. TY * Telephone Encounter - rCuz Manning RegSched Rep - 05/27/2020 4:08 PM EST Caller: ARABELLA FROM W/C Relationship: Payer Best call back number: [phone] What form or medical record are you requesting: OFFICE NOTE FROM 05/21 Who is requesting this form or medical record from you: WORKER COMP How would you like to receive the form or medical records (pick-up, mail, fax): FAX If fax, what is the fax number: [phone] Timeframe paperwork needed: SOON POSSIBLE OR FRI (05/30) Additional notes: WORKER COMP CALLED REQUESTING THE FOLLOWING MEDICAL RECORD(S) TO BE FAXED FOR CONTINUATION OF CARE. OFFICE CAN BE CONTACTED WITH AN UPDATE. documented in this encounter Plan of Treatment Not on file documented as of this encounter Visit Diagnoses Not on filedocumented in this encounter Care Teams Head Scorer Relationship Specialty Start Date End Date Noah Wagner MD [address] [place] [address] PCP - General Family Medicine 11/05/15 documented as of this encounter
--- OUTSIDE RECORDS SUMMARY | 2024-04-19 16:21 | XMS_ITS | Encounter Summary ---
Author Organization [facility] Address [address] [place], [place] [address] Phone [email or web address] [email or web address] Care Team Providers Care Dining Car Server Name Role Phone Noah Wagner Primary Care Provider [phone] Reason for Visit * Reason Comments Care Coordination Encounter Details Date Type Department Care Team (Latest Contact Info) Description 06/03/2023 8:30 AM EST Clinical Support [facility] [address] [address] [address] [place] [address] Charu West, GARCIA [address] [place] [address] Chest pain, unspecified type (Primary [...] 06/03/2023 8:30 AM EST TM transported to [facility] per [facility]. notified per provider. F/u IHS once released to RTW. DROGENATION SUPERVISOR documented in this encounter Progress Notes * Charu West NP - 06/03/2023 8:30 AM EST Subjective Arjun Melton is a 57 y.o. male. WD ID: [id number] Employer: [employer] [id number] Description: PWT Shift: 1st Full-time GL and #: Srinivasan Patton Responded to tones dropped for chest pain in 800. Onset: midnight last night Symptoms: chest pain radiating to left jaw, indigestion, vomit x1, and SOB Transported TM back to [facility] 1999 via [place] without stretcher. Notes: Upon [...] 4 lead obtained. TM taken back to [facility] 1999 by this RN and EMT for [...] per Charu West APRN, care transferred to [facility]. Triage nurse: SANDY ZunigaN, RN This [...] acute changes/ectopy. Patient Instructions TM transported to [facility] per [facility]. notified per provider. F/u IHS once released to RTW. DROGENATION SUPERVISOR documented in this encounter Plan of Treatment [...] stent documented in this encounter Care Teams Dining Car Server Relationship Specialty Start Date End Date Noah Wagner [facility] [address] [address] PCP - General Family Medicine 04/07/20 documented as of this encounter
--- OUTSIDE RECORDS SUMMARY | 2024-04-19 16:21 | XMS_ITS | Encounter Summary ---
Author Organization [facility] Address [address] [place], [place] [address] Phone [email or web address] [email or web address] Care Team Providers Care Supervising Bailiff Name Role Phone Unavailable Primary Care Provider Unavailabl e Encounter Details Date Type Department Care Team (Late st Contact Info) Description 07/18/[address] [place] [address] Erlinda Alejandro, PHARMACY CUSTOMER CARE SPECIALIST [address] [place] [address] Social History Tobacco Use Types [...] with no refills. Per Dr. Murphy to [facility] pharmacy in [facility]. Erlinda Alejandro RN TRONIC SYSTEM ENGINEER documented in this encounter Plan of Treatment Not on file documented as of this encounter Visit Diagnoses Not on filedocumented in this encounter
--- OUTSIDE RECORDS SUMMARY | 2024-04-19 16:21 | XMS_ITS | Encounter Summary ---
Author Organization [facility] Address [address] [place] [address] Phone CareEverywhereSuppor [email or web address] Care Team Providers Care Clam Shucking Machine Tender Name Role Phone Unavailable Primary Care Provider Unavailabl e Encounter Details Date Type Department Care Team (Late st Contact Info) Description 09/12/[address] [place] [address] Mary Dwyer, FROYLAN [address] [place] [address] Social History Tobacco Use Types [...] I left an additional message with Diaz's recruiting scheduler, Fior to call me but that TM [...]
--- OUTSIDE RECORDS SUMMARY | 2024-04-19 16:21 | XMS_ITS | Encounter Summary ---
Author Organization [facility] Address [address] [place], [place] [address] Phone [email or web address] [email or web address] Care Team Providers Care Talent Development Director Name Role Phone Noah Wagner Primary Care Provider [phone] Reason for Visit * Reason Comments Skin Issue L ring finger wound Encounter Details Date Type Department Care Team (Latest Contact Info) Description 12/11/2021 1:30 PM EDT Clinical Support [employer] Line Side Nursing Power Train [address] [place] [address] Lauren Macedo, RN [address] [place] [address] Alteration in comfort associated with [...] Primary documented in this encounter Care Teams Talent Development Director Relationship Specialty Start Date End Date Noah Wagner[address] [address] PCP - General Family Medicine 04/07/20 documented as of this encounter
--- OUTSIDE RECORDS SUMMARY | 2024-04-19 16:22 | XMS_ITS | Encounter Summary ---
Author Organization [facility] Address [address] [place] [address] Care Team Providers Care Assistant Spa Director Name Role Phone Noah Wagner MD Primary Care Provider [phone] Reason for Visit * Reason Onset Date Comments post procedure f/u call 11/28/2018 Encounter Details Date Type Department Care Team (Late st Contact Info) Description 11/28/2018 Telephone [facility]NA[facility]EMENT [address] [address] Paz Roberts CMA post procedure [...] on filedocumented in this encounter Care Teams Assistant Spa Director Relationship Specialty Start Date End Date Noah Wagner MD [address] [place] [address] PCP - General Family Medicine 11/05/15 documented as of this encounter
--- OUTSIDE RECORDS SUMMARY | 2024-04-19 16:22 | XMS_ITS | Encounter Summary ---
Author Organization [facility] Address [address] [place] [address] Care Team Providers Care Linux System Engineer Name Role Phone Noah Wagner MD Primary Care Provider [phone] Reason for Referral * (Routine) - Closed Specialty Diagnoses / Procedures Referred By Contac t Referred To Contact Radiology Diagnoses Cervical spondylosis with radiculopathy Procedures XR spine cervical 2 or 3 vw Victoriano Perales MD [address] [place] [address] Phone: tel: fax: Referral ID Status Reason Start Date Expiration Date Visits Re quested Visits Authorized [id number] Closed 01/09/2020 01/08/2021 1 1 Encounter Details Date Type Department Care Team (Late st Contact Info) Description 01/09/2020 Refill [facility] NEUROS[facility]ERY [address] [place] [phone] Victoriano Perales MD [address] [place] [address] Cervical spondylosis with radiculopathy (Primary Dx) Social [...] EDT S/w pt He requests rf on Expanite. Please mail to verified mailing address. Wagner: 12/31/2019 Hydrocodone Bitartrate/Ac 325MG/10MG 1965 20 7 [facility] 29 1 * Telephone Encounter - [...] on file documented as of this encounter Results * [...] myelopathy documented in this encounter Care Teams Linux System Engineer Relationship Specialty Start Date End Date Noah Wagner MD [facility] [address] [place], [place] [address] PCP - General Family Medicine 11/05/15 documented as of this encounter
--- OUTSIDE RECORDS SUMMARY | 2024-04-19 16:22 | XMS_ITS | Encounter Summary ---
Author Organization [facility] Address [address] [place] [address] Care Team Providers Care Pbx Wire Chief Name Role Phone Noah Wagner MD Primary Care Provider [phone] Encounter Details Date Type Department Care Team (Late st Contact Info) Description 12/03/2019 Telephone [facility] NEUROSURGERY [address] [address] Victoriano Perales MD [address] [place] [address] Social History Tobacco Use Types Packs/Day Years [...] on filedocumented in this encounter Care Teams Pbx Wire Chief Relationship Specialty Start Date End Date Noah Wagner MD [address] [place] [address] PCP - General Family Medicine 11/05/15 documented as of this encounter
--- OUTSIDE RECORDS SUMMARY | 2024-04-19 16:22 | XMS_ITS | Encounter Summary ---
Author Organization [facility] Address [address] [place] [id number] Care Team Providers Care Irrigator Gravity Flow Name Role Phone Noah Wagner MD Primary Care Provider [phone] Reason for Referral * Diagnostic Imaging (Routine) - Closed Specialty Diagnoses / Procedures Referred By Sanyaac t Referred To Contact Radiology Diagnoses Displacement of cervical intervertebral disc without myelopathy Procedures XR spine cervical 2 vw John Bull PA-C Phone: tel: fax: [address] [address] Phone: tel: Referral ID Status Reason Start Date Expiration Date Visits Re quested Visits Authorized [id number] Closed 01/02/2016 06/30/2016 1 1 Reason for Visit * Reason Comments Follow-up Encounter Details Date Type Department Care Team (Latest Contact Info) Description 01/02/2016 3:45 PM EDT Office Visit [facility] NEUROS[facility]GERY 1760 [facility] 301 [place] [phone] John Bull PA-C [address] [place] [address] Displacement of cervical intervertebral disc without myelopathy [...] continue narcotic-based medications. He may continue with phuv-fly-bkvomtj ibuprofen or Tylenol as needed. He will [...] Primary documented in this encounter Care Teams Irrigator Gravity Flow Relationship Specialty Start Date End Date Noah Wagner MD [address] [place] [address] PCP - General Family Medicine 11/05/15 documented as of this encounter
--- OUTSIDE RECORDS SUMMARY | 2024-04-19 16:22 | XMS_ITS | Encounter Summary ---
Author Organization [facility] Address [address] [place] [address] Care Team Providers Care J2Ee Developer Name Role Phone Noah Wagner MD Primary Care Provider [phone] Reason for Visit * Reason Comments Neck Pain Encounter Details Date Type Department Care Team (Late st Contact Info) Description 12/18/2019 11:40 AM EDT Office Visit [facility] NEUROSUR[facility]ERY [address] [place] [phone] Victoriano Perales MD 1760 [facility] [address] [place] [phone] Cervical spondylosis with radiculopathy (Primary Dx) Social [...] is a 54-year-old gentleman who works at [employer] who is well-known to my service. On [...] myelopathy documented in this encounter Care Teams J2Ee Developer Relationship Specialty Start Date End Date Noah Wagner MD [address] [place] [address] PCP - General Family Medicine 11/05/15 documented as of this encounter
--- OUTSIDE RECORDS SUMMARY | 2024-04-19 16:22 | XMS_ITS | Encounter Summary ---
Author Organization [facility] Address [address] [phone] Care Team Providers Care Music Journalist Name Role Phone Noah Wagner MD Primary Care Provider [phone] Reason for Referral * Diagnostic Imaging (Routine) - Closed Specialty Diagnoses / Procedures Referred By Contac t Referred To Contact Radiology Diagnoses Hx of fusion of cervical spine Procedures XR spine cervical 2 or 3 vw Victoriano Perales MD [address] [place] [address] Phone: tel: fax: [facility] XRAY [address] [place] [address] Phone: tel: Referral ID Status Reason Start Date Expiration Date Visits Re quested Visits Authorized [id number] Closed 12/20/2018 12/20/2019 1 1 Reason for Visit * Reason Comments Neck Pain * Consultation (Routine) - Closed Specialty Diagnoses / Procedures Referred By Contac t Referred To Contact Neurosurgery Diagnoses 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] is a 53-year-old gentleman who works at [employer] who is well-known to my service. ??On [...] spine documented in this encounter Care Teams Music Journalist Relationship Specialty Start Date End Date Noah Wagner MD [address] [place] [address] PCP - General Family Medicine 11/05/15 documented as of this encounter
--- OUTSIDE RECORDS SUMMARY | 2024-04-19 16:22 | XMS_ITS | Encounter Summary ---
Author Organization [facility] Address [address] [place] [address] Care Team Providers Care Silo Erector Name Role Phone Noah Wagner MD Primary Care Provider [phone] Reason for Visit * Auth/Cert Specialty Diagnoses / Procedures Referred By Renee meza Referred To Contact Diagnoses Cervical spondylosis with radiculopathy Cervical spondylosis with radiculopathy [M47.22] Procedures NC ARTHRODESIS ANT INTERBODY INC DISCECTOMY, CERVICAL BELOW C2 NC ALLOGRAFT FOR SPINE SURGERY ONLY STRUCTURAL NC ANTERIOR INSTRUMENTATION 2-3 VERTEBRAL SEGMENTS CERVICAL DISCECTOMY ANTERIOR WITH FUSION C3-4 POSSBLE REMOVE OLD HARDWARE C4-5 Referral ID Status Reason Start Date Expiration Date Visits Re quested Visits Authorized [id number] 1 1 Encounter Details Date Type Department Care Team (Late st Contact Info) Description 12/31/2019 7:44 AM EDT - 12/31/2019 10:35 AM EDT Surgery [facility] OR [address] [place] [address] Victoriano Perales MD [address] [address] HARDWARE REMOVAL C4-5 , CERVICAL DISCECTOMY ANTERIOR WITH FUSION C3-4 [66853 (CPT??)] Social History Tobacco Use Types Packs/Day [...] sent through Care Everywhere. * Radicular Pain (Icelandic) documented in this encounter Medications at Time [...] 6:51 AM EDT Pre-Op H&P Arjun Melton [id number] Chief complaint: Right arm numbness to [...] (Diaz) ??? ANTERIOR CERVICAL DISCECTOMY 09/08/2015 C4-5 ([place]) ??? COLONOSCOPY apprx 15 years ago ??? [...] old hardware C4-5 SURGEON: Victoriano Perales M.D. [facility]ICU NURSE: Ania Bliss PA-C PAC assisted with: Suctioning [...] the C3-4 level, self-retaining retractor to provide ykru-lz-lehk exposure. Radiograph confirmed the operative level. The [...] DURING SURGERY Routine 12/31/2019 9:32 AM EDT NC ARTHRD ANT INTERBODY DECOMPRESS CERVICAL BELW C2 12/31/2019 7:26 AM EDT Cervical spondylosis with radiculopathy Special Needs FILMS AT [facility] C-ARM+ documented in this encounter [...] 20 mg 20 mg, Oral, Once, On Tue12/31/19 at 0624, For 1 dose Given 12/31/2019 [...] 0624, May switch to NS IV at [facility] if renal / if indicated Currently [...] on Tue12/31/19 at 0735, For 24 hours, {BK} 0740 (Medication Robby lied - Provider: Emerald [...] MD) documented in this encounter Care Teams Silo Erector Relationship Specialty Start Date End Date Noah Wagner MD [address] [place] [address] PCP - General Family Medicine 11/05/15 documented as of this encounter
--- OUTSIDE RECORDS SUMMARY | 2024-04-19 16:22 | XMS_ITS | Encounter Summary ---
Author Organization [facility] Address [address] [id number] Care Team Providers Care Glass Blowing Lathe Operator Name Role Phone Noah Wagner MD Primary Care Provider Reason for Visit * Reason Comments Post-op Encounter Details Date Type Department Care Team (Latest Contact Info) Description 01/22/2020 1:00 PM EDT Office Visit [facility] NEUROSURGERY [address] [place] [phone] Ania Bliss, BOONE [address] [place] [address] S/P cervical spinal fusion (Primary Dx); Hx [...] is a 54-year-old gentleman who works at [employer]. He is known to Dr. Perales's service [...] denies anterior neck swelling. He continues his [place] 10 mg 3 times daily with improvement [...] disorder documented in this encounter Care Teams Glass Blowing Lathe Operator Relationship Specialty Start Date End Date Noah Wagner MD [address] [place] [address] PCP - General Family Medicine 11/05/15 documented as of this encounter
--- OUTSIDE RECORDS SUMMARY | 2024-04-19 16:22 | XMS_ITS | Encounter Summary ---
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 documented in this encounter Plan of Treatment Not on file documented as of this encounter Visit Diagnoses Not on filedocumented in this encounter Care Teams Juvenile Court Liaison Relationship Specialty Start Date End Date Provider, [place] [address] PCP - General 09/01/15 11/04/15 documented as of this encounter
--- OUTSIDE RECORDS SUMMARY | 2024-04-19 16:22 | XMS_ITS | Encounter Summary ---
Author Organization [facility] Address [address] [place] [address] Care Team Providers Care Antenna Engineer Name Role Phone Noah Wagner MD Primary Care Provider [phone] Encounter Details Date Type Department Care Team (Late st Contact Info) Description 09/05/2018 Telephone [facility] NEUROSUR[facility]ERY [address] [phone] Victoriano Perales MD [address] [place] [phone] Social History Tobacco Use Types Packs/Day Years [...] encounter Miscellaneous Notes * Telephone Encounter - Azul Oh MA - 09/12/2018 1:47 PM EDT Patient notified via' v/m. * Telephone Encounter - Ania Bliss PA-C - 09/12/2018 11:38 AM EDT There are no other options. - he has been on anti-inflammatories, and undergone therapy with cervical traction without benefit. - next step are injections. You can review the denial with WC - however our options are not going to change * Telephone Encounter - Fior Shukla. - 09/12/2018 10:33 AM EDT Pt has been doing PT with traction but it isn't helping with his symptoms. Dr. Murphy at the [facility] would like for the patient to review the denial letter and the reasons for denial with someone in the office and have other suggestions given before sending him to get the injections under her medical insurance. Pt is also going to be scheduled, per W/C, for an ETRESA. Please advise. * Telephone Encounter - Azul Oh MA - 09/06/2018 11:56 AM EDT Patient notified via' voice mail. He is to call back if he has any questions. * Telephone Encounter - Ania Bliss PA-C - 09/05/2018 5:01 PM EDT Is he undergoing the physical therapy with cervical traction that samira also recommended? - if WC denied he can always pay under his regular insurance. He needs to have tried therapy or injection prior to FU and he can always be seen by apro or myself * Telephone Encounter - Azul Oh MA - 09/05/2018 4:06 PM EDT See Fior's note. * Telephone Encounter - Fior Shukla - 09/05/2018 11:24 AM EDT Mary called in to let us know that the injections Dr. Perales suggested have been denied by W/C. They would like to get another appointment with Dr. Perales to go over his options. Please advise if we should proceed with that. documented in this encounter Plan of Treatment Not on file documented as of this encounter Visit Diagnoses Not on filedocumented in this encounter Care Teams Antenna Engineer Relationship Specialty Start Date End Date Noah Wagner MD [address] [place] [address] PCP - General Family Medicine 11/05/15 documented as of this encounter
--- OUTSIDE RECORDS SUMMARY | 2024-04-19 16:22 | XMS_ITS | Encounter Summary ---
Author Organization [facility] Address [address] [place] [id number] Care Team Providers Care Monotype Operator Name Role Phone Noah Wagner MD Primary Care Provider [phone] Reason for Visit * Reason Onset Date Comments [facility] 03/11/2020 Encounter Details Date Type Department Care Team (Late st Contact Info) Description 03/11/2020 Telephone [facility] NEUR[facility]ERY [address] [address] Victoriano Perales MD [address] [address] [facility] Social History Tobacco [...] Rep - 03/11/2020 1:52 PM EDT ARABELLA VASQUEZ CALLED TO FOLLOW UP ON A MEDICAL RECORDS REQUEST THAT WAS SUBMITTED ON 03/07/20 FOR A WORK COMP CLAIM. SHE IS REQUESTING THE OFFICE NOTE FROM 03/04/[address] PERALES. PLEASE ADVISE. THE RECORDS CAN BE FAXED TO [phone] ARABELLA CAN BE REACHED AT: [phone] THANK YOU! documented in this encounter Plan of Treatment Not on file documented as of this encounter Visit Diagnoses Not on filedocumented in this encounter Care Teams Monotype Operator Relationship Specialty Start Date End Date Noah Wagner MD [address] [place] [address] PCP - General Family Medicine 11/05/15 documented as of this encounter
--- OUTSIDE RECORDS SUMMARY | 2024-04-19 16:22 | XMS_ITS | Encounter Summary ---
Author Organization [facility] Address [address] [place] [address] Care Team Providers Care Medical Research Tech Name Role Phone Noah Wagner MD Primary Care Provider [phone] Reason for Referral * Physical Therapy (Routine) - Closed Specialty Diagnoses / Procedures Referred By Renee t Referred To Contact Physical Therapy Diagnoses Cervical radiculopathy Victoriano Perales MD [address] [place] [address] Phone: tel: fax: [facility] [address] [place] [address] Phone: tel: fax: Referral ID Status Reason Start Date Expiration Date V isits Requested Visits Authorized [id number] Closed Specialty Services Required 06/21/2018 06/21/2019 1 1 Reason for Visit * Reason Comments Neck Pain * Consultation (Routine) - Closed Specialty Diagnoses / Procedures Referred By Contac t Referred To Contact Neurosurgery Diagnoses Cervicalgia Cervical radiculopathy [place] [address] [place] [address] Phone: tel: fax: Victoriano Perales MD [address] [place] [address] Phone: tel: fax: Referral ID Status Reason Start Date Expiration Date Visits Re quested Visits Authorized [id number] Closed 06/14/2018 06/14/2019 1 1 Encounter Details Date Type Department Care Team (Late st Contact Info) Description 06/21/2018 4:00 PM EST Office Visit [facility] NEUROSURGERY [address]60 [facility] [address] [place] [phone] Victoriano Perales MD [address] [address] Cervical radiculopathy (Primary Dx); Cervical spondylosis without [...] is a 52-year-old gentleman who works at [employer] who is well-known to my service. On [...] spine documented in this encounter Care Teams Medical Research Tech Relationship Specialty Start Date End Date Noah Wagner MD [address] [place] [phone] PCP - General Family Medicine 11/05/15 documented as of this encounter
--- OUTSIDE RECORDS SUMMARY | 2024-04-19 16:22 | XMS_ITS | Encounter Summary ---
Author Organization [facility] Address [address] [place] [address] Care Team Providers Care Topology Professor Name Role Phone Noah Wagner MD Primary Care Provider [phone] Reason for Referral * Surgical (Routine) - Closed Specialty Diagnoses / Procedures Referred By Renee meza Referred To Contact Diagnoses Cervical spondylosis with radiculopathy Procedures Case Request Victoriano Perales MD [address] [address] Phone: tel: fax: Referral ID Status Reason Start Date Expiration Date Visits Re quested Visits Authorized [id number] Closed 12/20/2018 12/20/2019 1 1 Encounter Details Date Type Department Care Team (Late st Contact Info) Description 12/20/2018 Prep for Surgery [facility] ORDERS ONLY [address] [place] [address] Victoriano Perales MD [address] [place] [address] Cervical spondylosis with radiculopathy (Primary Dx) Social [...] is a 53-year-old gentleman who works at [employer] who is well-known to my service. ??On [...] ([place]) ??? ANTERIOR CERVICAL DISCECTOMY 09/08/2015 C4-5 ([place]) ??? NECK SURGERY 05/16/2008 ??? SHOULDER SURGERY [...] myelopathy documented in this encounter Care Teams Topology Professor Relationship Specialty Start Date End Date Noah Wagner MD [address] [place] [address] PCP - General Family Medicine 11/05/15 documented as of this encounter
--- OUTSIDE RECORDS SUMMARY | 2024-04-19 16:22 | XMS_ITS | Encounter Summary ---
Author Organization [facility] Address [address] [place] [address] Care Team Providers Care Director Food And Beverage Name Role Phone Noah Wagner MD Primary Care Provider [phone] Reason for Referral * Diagnostic Imaging (Routine) - Closed Specialty Diagnoses / Procedures [facility] Referred To Contact Radiology Diagnoses Cervical spondylosis with radiculopathy Procedures MRI Cervical Spine Without Contrast Victoriano Perales MD [address] [place] [address] Phone: tel: fax: [facility] MRI [address] [place] [address] Phone: tel: Referral ID Status Reason Start Date Expiration Date Visits Re quested Visits Authorized [id number] Closed 12/04/2019 12/03/2020 1 1 Reason for Visit * Diagnostic Imaging (Routine) - Closed Specialty Diagnoses / Procedures [facility] Referred To Contact Radiology Diagnoses Cervical spondylosis with radiculopathy Procedures MRI Cervical Spine Without Contrast Victoriano Perales MD [address] [place] [address] Phone: tel: fax: [facility] MRI [address] [place] [address] Phone: tel: Referral ID Status Reason Start Date Expiration Date Visits Re quested Visits Authorized [id number] Closed 12/04/2019 12/03/2020 1 1 Encounter Details Date Type Department Care Team (Late st Contact Info) Description 12/18/2019 9:59 AM EDT - 12/18/2019 11:59 PM EDT Hospital Encounter [facility] MRI [address] [place] [phone] Victoriano Perales MD [address] [facility] [address] [place] [phone] Cervical spondylosis with radiculopathy Discharge Disposition: Home [...] most significant at C3-C4 where there is bpjn-hi-fcosooxa spinal canal and moderate to severe bilateral [...] bilateral facet arthropathy without spinal canal narrowing. Obaq-pl-tpnevdmm left and mild right neural foraminal narrowing. [...] bilateral facet arthropathy without spinal canal narrowing. Tlhj-yu-gvlqfivo left and mild right neural foraminal narrowing. C7-T1 normal. The spinal cord is normal in caliber and signal throughout. IMPRESSION: Status post C4-C6 anterior fusion. Adjacent level cervical spondylosis is evident and most significant at C3-C4 where there is vnai-ly-loarlpfm spinal canal and moderate to severe bilateral neural foraminal narrowing as above. This report was finalized on 12/18/2019 10:47 AM by Jeremi Hill. us Victoriano Perales MD IMG MRI ORDERABLES Final Resu lt documented in this encounter Visit Diagnoses Diagnosis Cervical spondylosis with radiculopathy Cervical spondylosis with myelopathy documented in this encounter Care Teams Director Food And Beverage Relationship Specialty Start Date End Date Noah Wagner MD [address] [place] [address] PCP - General Family Medicine 11/05/15 documented as of this encounter
--- OUTSIDE RECORDS SUMMARY | 2024-04-19 16:22 | XMS_ITS | Encounter Summary ---
Author Organization [facility] Address [address] [place] [address] Care Team Providers Care Fence Post Driver Name Role Phone Noah Wagner MD Primary Care Provider [phone] Reason for Referral * Physical Therapy (Routine) - Closed Specialty Diagnoses / Procedures Referred By Contac t Referred To Contact Physical Therapy Diagnoses S/P cervical spinal fusion Victoriano Perales MD [address] [place] [address] Phone: tel: fax: [facility] [address] [place] [address] Phone: tel: fax: Referral ID Status Reason Start Date Expiration Date V isits Requested Visits Authorized [id number] Closed Specialty Services Required 03/04/2020 03/04/2021 1 1 Reason for Visit * Reason Comments Post-op Encounter Details Date Type Department Care Team (Late st Contact Info) Description 03/04/2020 11:20 AM EDT Office Visit [facility] NEUROSURGERY [address] [phone] Victoriano Perales MD [address] [place] [address] S/P cervical spinal fusion (Primary Dx); Cervical spondylosis with radiculopathy Social [...] Pressure - - Pulse - - Temperature 36.2 ??C (97.1 ??F) 03/04/2020 11:28 AM E DT Respiratory Rate - - Oxygen Saturation - - Inhaled Oxygen Concentration - - Weight 72.1 kg (159 lb) 03/04/2020 11:28 AM EDT Height 172.7 cm (5' 8 ) 03/04/2020 11:28 AM EDT Body Mass Index 24.18 03/04/2020 11:28 AM EDT documented in this encounter Progress Notes * Victoriano Perales MD - 03/04/2020 11:20 AM EDT Patient: Arjun Melton : 1965 Primary Care Provider: Noah Wagner MD Requesting Provider: As above History Chief Complaint: Neck and right shoulder pain. History of Present Illness: Mr. Melton is a 54-year-old gentleman who works at [employer]. He is known to Dr. Perales's service [...] removal of his old hardware on 12/31/2019. His right shoulder pain is absent. He still has pain in his neck and in his trapezius regions. He has some stiffness. Swallowing problems continue to improve. Review of Systems Constitutional: Negative for activity change, appetite change, chills, diaphoresis, fatigue, fever and unexpected weight change. HENT: Positive for trouble swallowing. Negative for congestion, dental problem, drooling, ear discharge, ear pain, facial swelling, hearing loss, mouth sores, nosebleeds, postnasal drip, rhinorrhea, sinus pressure, sinus pain, sneezing, sore throat, tinnitus and voice change. Eyes: Negative for photophobia, [...] testicular pain and urgency. Musculoskeletal: Positive for arthralgias, myalgias, [...] the electronic medical record. Physical Exam: Temp 97.1 ??F (36.2 ??C) Ht 172.7 cm (68 ) Wt 72.1 kg (159 lb) BMI 24.18 kg/m?? Range of motion his neck is mildly limited in all directions. His incision looks great. His voice is normal. Strength and tone are normal in his upper extremities. Medical Decision Making Diagnosis: Cervical spondylosis with radiculopathy status post ACDF C3-4 with removal of old hardware. Treatment Options: Overall Mr. Melton is doing better. He will pursue physical therapy for the next several weeks and then I have cleared him to return to work without restriction. 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 He will follow-up in our clinic in approximately 2.5 months. Diagnosis Plan 1. S/P cervical spinal fusion Ambulatory Referral to Physical Therapy Evaluate and treat; Stretching, ROM, Strengthening 2. Cervical spondylosis with radiculopathy I, Dr. Perales, personally performed the services described in the documentation, as scribed in my presence, and it is both accurate and complete. documented in this encounter Plan of Treatment Not on file documented as of this encounter Visit Diagnoses Diagnosis S/P cervical spinal fusion- Primary Arthrodesis status Cervical spondylosis with radiculopathy Cervical spondylosis with myelopathy documented in this encounter Care Teams Fence Post Driver Relationship Specialty Start Date End Date Noah Wagner MD [address] [place] [address] PCP - General Family Medicine 11/05/15 documented as of this encounter
--- OUTSIDE RECORDS SUMMARY | 2024-04-19 16:22 | XMS_ITS | Encounter Summary ---
Author Organization [facility] Address [address] [place] [phone] Care Team Providers Care Developer Automatic Name Role Phone Noah Wagner MD Primary Care Provider [phone] Encounter Details Date Type Department Care Team (Late st Contact Info) Description 11/05/2015 Refill [facility] [address] [facility] [address] [place] [address] John Bull, PA-C [address] [place] [address] Social History Tobacco Use Types Packs/Day Years [...] on filedocumented in this encounter Care Teams Developer Automatic Relationship Specialty Start Date End Date oNah Wagner MD [address] [place] [address] PCP - General Family Medicine 11/05/15 documented as of this encounter
--- OUTSIDE RECORDS SUMMARY | 2024-04-19 16:22 | XMS_ITS | Encounter Summary ---
Author Organization [facility] Address [address] [place] [address] Care Team Providers Care Willow Worker Name Role Phone Noah Wagner MD Primary Care Provider [phone] Reason for Visit * Auth/Cert Specialty Diagnoses / Procedures Referred By Renee meza Referred To Contact Diagnoses Cervical spondylosis with radiculopathy Cervical spondylosis with radiculopathy [M47.22] Procedures NH ARTHRODESIS ANT INTERBODY INC DISCECTOMY, CERVICAL BELOW C2 NH ALLOGRAFT FOR SPINE SURGERY ONLY STRUCTURAL NH ANTERIOR INSTRUMENTATION 2-3 VERTEBRAL SEGMENTS CERVICAL DISCECTOMY ANTERIOR WITH FUSION C3-4 POSSBLE REMOVE OLD HARDWARE C4-5 Referral ID Status Reason Start Date Expiration Date Visits Re quested Visits Authorized [id number] 1 1 Encounter Details Date Type Department Care Team (Late st Contact Info) Description 12/31/2019 7:46 AM EDT Anesthesia [place] [facility] [place] [address] [place] [phone] Lilo Spain DO [address] [place] [address] Anesthesia Record Procedure Summary Procedure Name Responsible [...] by Emerald Horn RN 12/31/19 1319 by Yara Duran RN ETT Placement Date: 12/14 12/02; Placement [...] OR Notes * Anesthesia Postprocedure Evaluation - Afshin Haile CRNA - 12/31/2019 9:42 AM EDT Patient: Arjun Melton Procedure Summary Date: 12/31/19 Room / Location: [facility] OR [address] [place] [address] [facility] OR Anesthesia Start: 745 Anesthesia Stop: [...] and Staff Patient location during procedure: OR OPTICAL ADVISOR: Afshin Haile CRNA Indications and Patient Condition [...] hypertension 2 medications or greater, (-) past CT, dysrhythmias, angina, CHF, cardiac stents, DVT ROS comment: 12/28/19-Normal sinus rhythm Normal ECG; ~2017 HTN w/up by cardiology - negative cath and nl echo per pt report. Neuro/Psych (-) seizures, TIA, CVA GI/Hepatic/Renal/Endo (+) GERD (on ppi ) well controlled, (-) hepatitis, liver disease, no renal disease, diabetes, no thyroid disorder Musculoskeletal Abdominal Substance History (+) alcohol use, (-) drug use [employer] Other arthritis, (-) history of cancer ROS/Med [...] Consented to blood products. Plan discussed with OPTICAL ADVISOR. documented in this encounter Plan of Treatment [...] and Staff Patient location during procedure: [place] OPTICAL ADVISOR: Afshin Haile CRNA Indications and Patient Condition [...] 0624, May switch to NS IV at O if renal / if indicated Currently Infusing [...] mg documented in this encounter Care Teams Willow Worker Relationship Specialty Start Date End Date Noah Wagner MD [address] [place] [address] PCP - General Family Medicine 11/05/15 documented as of this encounter
--- OUTSIDE RECORDS SUMMARY | 2024-04-19 16:22 | XMS_ITS | Encounter Summary ---
Author Organization [facility] Address [address] [place] [phone] Care Team Providers Care Medical Transport Specialist Name Role Phone Noah Wagner MD Primary Care Provider [phone] Reason for Referral * (Routine) - Closed Specialty Diagnoses / Procedures Referred By Contac t Referred To Contact Radiology Diagnoses Cervical spondylosis with radiculopathy Procedures XR spine cervical 2 or 3 vw Victoriano Perales MD [address] [place] [address] Phone: tel: fax: Referral ID Status Reason Start Date Expiration Date Visits Re quested Visits Authorized [id number] Closed 01/09/2020 01/08/2021 1 1 Reason for Visit * (Routine) - Closed Specialty Diagnoses / Procedures Referred By Contac t Referred To Contact Radiology Diagnoses Cervical spondylosis with radiculopathy Procedures XR spine cervical 2 or 3 vw Victoriano Perales MD [address] [place] [address] Phone: tel: fax: Referral ID Status Reason Start Date Expiration Date Visits Re quested Visits Authorized [id number] Closed 01/09/2020 01/08/2021 1 1 Encounter Details Date Type Department Care Team (Late st Contact Info) Description 01/22/2020 11:12 AM EDT - 01/22/2020 11:59 PM EDT Hospital Encounter [facility] XRAY [address] [place] [phone] Victoriano Perales MD [address] [facility] [address] [place] [address] Cervical spondylosis with radiculopathy Discharge Disposition: Home [...] myelopathy documented in this encounter Care Teams Medical Transport Specialist Relationship Specialty Start Date End Date Noah Wagner MD [address] [place] [address] PCP - General Family Medicine 11/05/15 documented as of this encounter
--- OUTSIDE RECORDS SUMMARY | 2024-04-19 16:22 | XMS_ITS | Encounter Summary ---
Author Organization [facility] Address [address] [place] [address] Care Team Providers Care Supervisor Bleach Plant Name Role Phone Noah aWgner MD Primary Care Provider [phone] Reason for Referral * Physical Therapy (Routine) - Closed Specialty Diagnoses / Procedures Referred By Contac t Referred To Contact Physical Therapy Diagnoses S/P cervical spinal fusion Cervical spondylosis with radiculopathy Victoriano Perales MD [address] [place] [address] Phone: tel: fax: [facility] [address] [place] [address] Phone: tel: fax: Referral ID Status Reason Start Date Expiration Date Visits Requested Visits Authorized [id number] Closed Patient Preference 04/18/2020 04/18/2021 1 1 Encounter Details Date Type Department Care Team (Late st Contact Info) Description 04/18/[address] [facility] NEUROSURGERY [address] [address] Ana Maria Edwards, [place] Social History [...] myelopathy documented in this encounter Care Teams Supervisor Bleach Plant Relationship Specialty Start Date End Date Noah Wagner MD [address] [place] [address] PCP - General Family Medicine 11/05/15 documented as of this encounter
--- OUTSIDE RECORDS SUMMARY | 2024-04-19 16:22 | XMS_ITS | Encounter Summary ---
Author Organization [facility] Address [address] [place] [id number] Care Team Providers Care Brickmason Apprentice Name Role Phone Noah Wagner MD Primary Care Provider [phone] Reason for Referral * Surgical (Routine) - Closed Specialty Diagnoses / Procedures Referred By Renee meza Referred To Contact Diagnoses Cervical spondylosis with radiculopathy Procedures Case Request NC ARTHRODESIS ANT INTERBODY INC DISCECTOMY, CERVICAL BELOW C2 NC ALLOGRAFT FOR SPINE SURGERY ONLY STRUCTURAL NC ANTERIOR INSTRUMENTATION 2-3 VERTEBRAL SEGMENTS Victoriano Perales MD [address] [place] [address] Phone: tel: fax: [address] [address] Phone: tel: Referral ID Status Reason Start Date Expiration Date Visits Re quested Visits Authorized [id number] Closed 12/18/2019 12/17/2020 1 1 Encounter Details Date Type Department Care Team (Late st Contact Info) Description 12/18/2019 Prep for Surgery [facility] ORDERS ONLY [address] [place], [place] [address] Victoriano Perales MD [address] [place] [address] Cervical spondylosis with radiculopathy (Primary Dx) Social [...] - 12/18/2019 12:02 PM EDT Patient: Arjun Melton : 1965 ?? Primary Care Provider: Noah Wagner MD ?? Requesting Provider: As above ? History ?? Chief Complaint: Neck and bilateral shoulder pain. ?? History of Present Illness: Mr. Melton is a 54-year-old gentleman who works at [employer] who is well-known to my service. ??On [...] ??? Hypertension ??? Scarlet fever ??? Seizures ([facility]) Past Surgical History: Procedure Laterality Date ??? ANTERIOR CERVICAL DISCECTOMY 05/22/2009 C5-6 ([place]) ??? ANTERIOR CERVICAL DISCECTOMY 09/08/2015 C4-5 ([place]) ??? NECK SURGERY 05/16/2008 ??? SHOULDER SURGERY [...] myelopathy documented in this encounter Care Teams Brickmason Apprentice Relationship Specialty Start Date End Date Noah Wagner MD [address] [place] [address] PCP - General Family Medicine 11/05/15 documented as of this encounter
--- OUTSIDE RECORDS SUMMARY | 2024-04-19 16:22 | XMS_ITS | Encounter Summary ---
Author Organization [facility] Address [address] [place] [address] Care Team Providers Care Asbestos Coverer Name Role Phone Provider, No Known Primary Care Provider [phone] Reason for Referral * Physical Therapy (Routine) - Closed Specialty Diagnoses / Procedures Referred By Contnohemi t Referred To Contact Physical Therapy Diagnoses Cervical spondylosis with radiculopathy Displacement of cervical intervertebral disc without myelopathy John Bull PA-C Phone: tel: fax: [facility] [address] [place] [address] Phone: tel: Referral ID Status Reason Start Date Expiration Date V isits Requested Visits Authorized [id number] Closed Specialty Services Required 10/08/2015 04/05/2016 20 20 Scheduling Instructions 3x/wk for 4 weeks Reason for Visit * Reason Comments Post-op C4-c5 Disc herniatio n and spondylosis with left upper extremity radiculopathy Encounter Details Date Type Department Care Team (Latest Contact Info) Description 10/08/2015 10:00 AM EDT Office Visit [facility] [address] [place] [address] [address] [place] [address] John Bull PA-C [address] [place] [address] Cervical spondylosis with radiculopathy (Primary Dx); Displacement [...] myelopathy documented in this encounter Care Teams Asbestos Coverer Relationship Specialty Start Date End Date Provider, [place] [address] PCP - General 09/01/15 11/04/15 documented as of this encounter
--- OUTSIDE RECORDS SUMMARY | 2024-04-19 16:22 | XMS_ITS | Encounter Summary ---
Author Organization [facility] Address [address] [place] [address] Care Team Providers Care Application Development Director Name Role Phone Noah Wagner MD Primary Care Provider [phone] Encounter Details Date Type Department Care Team (Late st Contact Info) Description 08/24/2018 Telephone [facility]IN [facility] [address] [address] Renea Page MA Social History [...] TO COVER MY MEDS. AUTHORIZATION APPROVED.CASE # [id number] documented in this encounter Plan of Treatment Not on file documented as of this encounter Visit Diagnoses Not on filedocumented in this encounter Care Teams Application Development Director Relationship Specialty Start Date End Date Noah Wagner MD [address] [place] [address] PCP - General Family Medicine 11/05/15 documented as of this encounter
--- OUTSIDE RECORDS SUMMARY | 2024-04-19 16:22 | XMS_ITS | Encounter Summary ---
Author Organization [facility] Address [address] [place] [address] Care Team Providers Care Solvent Station Attendant Name Role Phone Noah Wagner MD Primary Care Provider [phone] Reason for Visit * Surgical (Routine) - Canceled Specialty Diagnoses / Procedures Referred By Renee meza Referred To Contact Diagnoses Cervical spondylosis with radiculopathy Procedures External Facility Surgical/Procedural Request Jarett Gomez MD [address] [address] Phone: tel: fax: [facility] [address] [place] [address] Phone: tel: fax: Referral ID Status Reason Start Date Expiration Date V isits Requested Visits Authorized [id number] Canceled Other 11/02/2018 11/02/2019 1 1 Encounter Details Date Type Department Care Team (Late st Contact Info) Description 11/27/2018 7:15 AM EDT Outside Facility Service [facility] PAIN MANAGEMENT [address] [address] Jarett Gomez MD [address] [place] [address] Social History Tobacco Use Types Packs/Day Years [...] on filedocumented in this encounter Care Teams Solvent Station Attendant Relationship Specialty Start Date End Date Noah Wagner MD [address] [place] [address] PCP - General Family Medicine 11/05/15 documented as of this encounter
--- OUTSIDE RECORDS SUMMARY | 2024-04-19 16:22 | XMS_ITS | Encounter Summary ---
Author Organization [facility] Address [address] [place] [address] Care Team Providers Care Network Operations Specialist Name Role Phone Noah Wagner MD Primary Care Provider [phone] Reason for Referral * Physical Therapy (Routine) - Closed Specialty Diagnoses / Procedures Referred By Contac t Referred To Contact Physical Therapy Diagnoses Displacement of cervical intervertebral disc without myelopathy Cervical spondylosis with radiculopathy John Bull PA-C Phone: tel: fax: LOCATION NOT FOUND IN SYSTEM [facility] [place] [address] Phone: tel: Referral ID Status Reason Start Date Expiration Date V isits Requested Visits Authorized [id number] Closed Specialty Services Required 11/05/2015 05/03/2016 20 20 Reason for Visit * Reason Comments Follow-up Encounter Details Date Type Department Care Team (Latest Contact Info) Description 11/05/2015 11:00 AM EDT Office Visit [facility] [address] [facility] [address] [place] [address] John Bull PA-C [address] [place] [address] Displacement of cervical intervertebral disc without myelopathy [...] progress. I provided him a prescription for [place] 7.5 one by mouth 3 times a [...] myelopathy documented in this encounter Care Teams Network Operations Specialist Relationship Specialty Start Date End Date Noah Wagner MD [address] [place] [address] PCP - General Family Medicine 11/05/15 documented as of this encounter
--- OUTSIDE RECORDS SUMMARY | 2024-04-19 16:22 | XMS_ITS | Encounter Summary ---
Author Organization [facility] Address [address] [place] [address] Care Team Providers Care Assault Amphibious Vehicle Crewman Name Role Phone Provider, No Known Primary Care Provider [phone] Encounter Details Date Type Department Care Team (Late st Contact Info) Description 10/08/2015 Refill [facility]UR[facility]ERY [address] [place] [address] [place] [phone] John Bull, PA-C [address] [place] [address] Cervical spondylosis without myelopathy (Primary Dx) Social [...] Primary documented in this encounter Care Teams Assault Amphibious Vehicle Crewman Relationship Specialty Start Date End Date Provider, [place] [address] PCP - General 09/01/15 11/04/15 documented as of this encounter
--- OUTSIDE RECORDS SUMMARY | 2024-04-19 16:22 | XMS_ITS | Encounter Summary ---
Author Organization [facility] Address [address] [place] [address] Care Team Providers Care C Wpf Developer Name Role Phone Noah Wagner MD Primary Care Provider Reason for Referral * Physical Therapy (Routine) - Closed Specialty Diagnoses / Procedures Referred By Renee meza Referred To Contact Physical Therapy Diagnoses Cervical spondylosis with radiculopathy Shakeel Diego PA-C [facility] [address] [facility] [address] [place] [address] Phone: tel: fax: Referral ID Status Reason Start Date Expiration Date V isits Requested Visits Authorized [id number] Closed Specialty Services Required 11/02/2018 11/02/2019 1 1 Encounter Details Date Type Department Care Team (Latest Contact Info) Description 11/02/2018 8:30 AM EDT Office Visit [facility] PAIN [facility]GEMENT [address] [facility] [address] [place] [phone] Shakeel Diego PA-C Cervical spondylosis with radiculopathy [...] in treatment. In terms of current analgesics, Ajrun Melton takes: Diclofenac I have reviewed Wagner Report #[id number], consistent to medication reconciliation. Global Pain Scale [...] Date ??? ANTERIOR CERVICAL DISCECTOMY 05/22/2009 C5-6 ([place]) ??? ANTERIOR CERVICAL DISCECTOMY 09/08/2015 C4-5 ([place]) ??? NECK SURGERY 05/16/2008 ??? SHOULDER SURGERY [...] (Internal Medicine) Renea Nicole PA as Physician Spectral Scientist (Physician Spectral Scientist) Jarett Gomez MD as Consulting Physician (Pain Medicine) No orders of the defined types were placed in this encounter. No future appointments. Shakeel Diego PA-C EMR Dragon/Respiratory Equipment Assistant disclaimer: Much of this encounter note is an electronic window caser of spoken language to printed text. Electronic window caser of spoken language may permit erroneous, or [...] status documented in this encounter Care Teams C Wpf Developer Relationship Specialty Start Date End Date Noah Wagner MD [address] [place] [address] PCP - General Family Medicine 11/05/15 documented as of this encounter
--- OUTSIDE RECORDS SUMMARY | 2024-04-19 16:22 | XMS_ITS | Encounter Summary ---
Author Organization [facility] Address [address] [place] [address] Care Team Providers Care X Ray Equipment Mechanic Name Role Phone Noah Wagner MD Primary Care Provider [phone] Reason for Referral * Physical Therapy (Routine) - Closed Specialty Diagnoses / Procedures Referred By Contac t Referred To Contact Physical Therapy Diagnoses Cervical radiculopathy Victoriano Perales MD [address] [place] [address] Phone: tel: fax: [facility] [address] [place] [address] Phone: tel: fax: Referral ID Status Reason Start Date Expiration Date V isits Requested Visits Authorized [id number] Closed Specialty Services Required 07/14/2018 07/14/2019 1 1 * Pain Management (Routine) - Closed Specialty Diagnoses / Procedures Referred By Contac t Referred To Contact Pain Medicine Diagnoses Cervical radiculopathy Victoriano Perales MD [address] [place] [address] Phone: tel: fax: Jarett Gomez MD [address] [place] [address] Phone: tel: fax: Referral ID Status Reason Start Date Expiration Date V isits Requested Visits Authorized [id number] Closed Specialty Services Required 07/14/2018 07/14/2019 1 1 Encounter Details Date Type Department Care Team (Late st Contact Info) Description 07/14/2018 1:40 PM EST Office Visit [facility]UR[facility] [address] [facility] [address] [place] [phone] Victoriano Perales MD [address] [facility] [address] [place] [address] Cervical radiculopathy (Primary Dx); Cervical spondylosis without [...] is a 52-year-old gentleman who works at [email or web address] who is well-known to my service. On [...] spine documented in this encounter Care Teams X Ray Equipment Mechanic Relationship Specialty Start Date End Date Noah Wagner MD [address] [place] [address] PCP - General Family Medicine 11/05/15 documented as of this encounter
--- OUTSIDE RECORDS SUMMARY | 2024-04-19 16:22 | XMS_ITS | Encounter Summary ---
Author Organization [facility] Address [address] [place] [address] Care Team Providers Care Routeman Name Role Phone Noah Wagner MD Primary Care Provider [phone] Reason for Visit * Pain Management (Routine) - Closed Specialty Diagnoses / Procedures Referred By Renee t Referred To Contact Pain Medicine Diagnoses Cervical radiculopathy Victoriano Perales MD [address] [place] [address] Phone: tel: fax: Jarett Gomez MD [address] [place] [address] Phone: tel: fax: Referral ID Status Reason Start Date Expiration Date V isits Requested Visits Authorized [id number] Closed Specialty Services Required 07/14/2018 07/14/2019 1 1 Encounter Details Date Type Department Care Team (Late st Contact Info) Description 08/24/2018 8:00 AM EDT Office Visit [facility] PAIN MANAGEMENT [address] [address] Jarett Gomez MD [address] [place] [address] Cervical spondylosis with radiculopathy; Lateral recess stenosis [...] takes: Diclofenac I have reviewed Wagner Report #[id number] consistent to medication reconciliation. Global Pain Scale [...] ([place]) ??? ANTERIOR CERVICAL DISCECTOMY 09/08/2015 C4-5 ([place]) ??? NECK SURGERY 05/16/2008 ??? SHOULDER SURGERY [...] (Internal Medicine) Renea Nicole PA as Physician Geographic Information Scientist (Physician Geographic Information Scientist) Jarett Gomez MD as Consulting Physician (Pain Medicine) No orders of the defined types were placed in this encounter. No future appointments. Jarett Gomez MD EMR Dragon/Shot Peen Operator disclaimer: Much of this encounter note is an electronic pastry wrapper of spoken language to printed text. Electronic pastry wrapper of spoken language may permit erroneous, or [...] counseling documented in this encounter Care Teams Routeman Relationship Specialty Start Date End Date Noah Wagner MD [address] [place] [address] PCP - General Family Medicine 11/05/15 documented as of this encounter
--- OUTSIDE RECORDS SUMMARY | 2024-04-19 16:22 | XMS_ITS | Encounter Summary ---
Author Organization [facility] Address [address] [place] [id number] Care Team Providers Care Account Financial Manager Name Role Phone Noah Wagner MD Primary Care Provider [phone] Reason for Referral * Diagnostic Imaging (Routine) - Closed Specialty Diagnoses / Procedures Referred By Contac t Referred To Contact Radiology Diagnoses Cervical spondylosis with radiculopathy Procedures MRI Cervical Spine Without Contrast Victoriano Perales MD [address] [place] [address] Phone: tel: fax: [facility] [address] [place] [address] Phone: tel: Referral ID Status Reason Start Date Expiration Date Visits Re quested Visits Authorized [id number] Closed 12/04/2019 12/03/2020 1 1 Encounter Details Date Type Department Care Team (Late st Contact Info) Description 12/04/2019 1:20 PM EDT Office Visit [facility] NEUR[facility] [address] [phone] Victoriano Perales MD [address] [place] [address] Cervical spondylosis with radiculopathy (Primary Dx); Tobacco [...] is a 54-year-old gentleman who works at [employer] who is well-known to my service. On [...] most significant at C3-C4 where there is rfzs-tg-ydybdxcd spinal canal and moderate to severe bilateral [...] bilateral facet arthropathy without spinal canal narrowing. Ndtj-zp-iokvfiil left and mild right neural foraminal narrowing. [...] bilateral facet arthropathy without spinal canal narrowing. Kfjq-kc-ssfhelpk left and mild right neural foraminal narrowing. C7-T1 normal. The spinal cord is normal in caliber and signal throughout. IMPRESSION: Status post C4-C6 anterior fusion. Adjacent level cervical spondylosis is evident and most significant at C3-C4 where there is logz-fz-eazhfmsy spinal canal and moderate to severe bilateral [...] myelopathy documented in this encounter Care Teams Account Financial Manager Relationship Specialty Start Date End Date Noah Wagner MD [address] [place] [address] PCP - General Family Medicine 11/05/15 documented as of this encounter
--- OUTSIDE RECORDS SUMMARY | 2024-04-19 16:22 | XMS_ITS | Encounter Summary ---
Author Organization [facility] Address [address] [place] [address] Care Team Providers Care Fur Joiner Name Role Phone Noah Wagner MD Primary Care Provider Encounter Details Date Type Department Care Team (Late st Contact Info) Description 08/09/2018 Telephone [facility] [address] [address] Jailene Agrawal RN Social History [...] Agrawal RN - 08/09/2018 4:16 PM EDT [facility] Report #[id number] MRI Cervical Spine, 06/09/2018: There has been [...] on filedocumented in this encounter Care Teams Fur Joiner Relationship Specialty Start Date End Date Noah Wagner MD [address] [place] [address] PCP - General Family Medicine 11/05/15 documented as of this encounter
--- OUTSIDE RECORDS SUMMARY | 2024-04-19 16:22 | XMS_ITS | Encounter Summary ---
Author Organization [facility] Address [address] [place] [address] Care Team Providers Care Open Tenter Operator Name Role Phone Noah Wagner MD Primary Care Provider [phone] Reason for Referral * Consultation (Routine) - Closed Specialty Diagnoses / Procedures Referred By Contac t Referred To Contact Neurosurgery Diagnoses Lateral recess stenosis of cervical spine Displacement of cervical intervertebral disc without myelopathy Shakeel Diego PA-C Kiefer, Steven P, MD [address] [address] Phone: tel: fax: Referral ID Status Reason Start Date Expiration Date V isits Requested Visits Authorized [id number] Closed Specialty Services Required 12/15/2018 12/15/2019 1 1 Encounter Details Date Type Department Care Team (Latest Contact Info) Description 12/15/2018 9:00 AM EDT Office Visit [facility]IN [facility]GEMENT [address] [facility] [address] [place] [address] Shakeel Diego PA-C Cervical spondylosis without myelopathy [...] History of Present Illness: Patient: Mr. Arjun eMlton, 53 y.o. male, with a 5-month history [...] takes: Tylenol I have reviewed Wagner Report #[id number], consistent to medication reconciliation. Global Pain Scale [...] (Internal Medicine) Renea Nicole PA as Physician Fraud Analyst (Physician Fraud Analyst) Jarett Gomez MD as Consulting Physician (Pain Medicine) No orders of the defined types were placed in this encounter. No future appointments. Shakeel Diego PA-C EMR Dragon/Delivery Of Shopping News disclaimer: Much of this encounter note is an electronic women's studies professor of spoken language to printed text. Electronic women's studies professor of spoken language may permit erroneous, or [...] status documented in this encounter Care Teams Open Tenter Operator Relationship Specialty Start Date End Date Noah Wagner MD [address] [place] [address] PCP - General Family Medicine 11/05/15 documented as of this encounter
--- OUTSIDE RECORDS SUMMARY | 2024-04-19 16:22 | XMS_ITS | Encounter Summary ---
Author Organization [facility] Address [address] [place] [address] Care Team Providers Care Wet Machine Tender Name Role Phone Noah Wagner MD Primary Care Provider [phone] Reason for Visit * Auth/Cert Specialty Diagnoses [...] Expiration Date Visits Re quested Visits Authorized [id number] 1 1 Encounter Details Date Type Department Care Team (Late st Contact Info) Description 12/31/2019 6:04 AM EDT - 12/31/2019 1:44 PM EDT Hospital Encounter [address] [place] [address] Victoriano Perales MD [address] [place] [address] Cervical spondylosis with radiculopathy Discharge Disposition: Home [...] 6:51 AM EDT Pre-Op H&P Arjun Melton [id number] Chief complaint: Right arm numbness to [...] old hardware C4-5 SURGEON: Victoriano Perales M.D. ARMORED CAR GUARD AND DRIVER: Ania Bliss PA-C PAC assisted with: Suctioning [...] the C3-4 level, self-retaining retractor to provide vrtm-bj-ikfl exposure. Radiograph confirmed the operative level. The [...] spondylosis with radiculopathy Special Needs FILMS AT [facility] C-ARM+ documented in this encounter [...] 0624, May switch to NS IV at [facility] if renal / if indicated Currently Infusing [...] MD) documented in this encounter Care Teams Wet Machine Tender Relationship Specialty Start Date End Date Wagner, Noah C, MD [address] [place] [address] PCP - General Family Medicine 11/05/15 documented as of this encounter
--- OUTSIDE RECORDS SUMMARY | 2024-04-19 16:22 | XMS_ITS | Encounter Summary ---
Author Organization [facility] Address [address] [place] [address] Care Team Providers Care Rope Laying Machine Operator Name Role Phone Noah Wagner MD Primary Care Provider [phone] Reason for Referral * Diagnostic Imaging (Routine) - Closed Specialty Diagnoses / Procedures Referred By Contac t Referred To Contact Radiology Diagnoses Hx of fusion of cervical spine Procedures XR spine cervical 2 or 3 vw Victoriano Perales MD [address] [place] [address] Phone: tel: fax: [facility] [address] [place] [address] Phone: tel: Referral ID Status Reason Start Date Expiration Date Visits Re quested Visits Authorized [id number] Closed 12/20/2018 12/20/2019 1 1 Reason for Visit * Diagnostic Imaging (Routine) - Closed Specialty Diagnoses / Procedures Referred By Contac t Referred To Contact Radiology Diagnoses Hx of fusion of cervical spine Procedures XR spine cervical 2 or 3 vw Victoriano Perales MD [address] [place] [address] Phone: tel: fax: [facility] [address] [place] [address] Phone: tel: Referral ID Status Reason Start Date Expiration Date Visits Re quested Visits Authorized [id number] Closed 12/20/2018 12/20/2019 1 1 Encounter Details Date Type Department Care Team (Late st Contact Info) Description 12/20/2018 12:28 PM EDT - 12/20/2018 11:59 PM EDT Hospital Encounter [facility] [address] [place] [address] Victoriano Perales MD [address] [facility] [address] [place] [address] Hx of fusion of cervical spine Discharge [...] EXAMINATION: XR SPINE CERVICAL 2 OR 3 - 12/20/2018 INDICATION: f/u cervical fusion; Z98.1-Arthrodesis status [...] EXAMINATION: XR SPINE CERVICAL 2 OR 3 - 12/20/2018 INDICATION: f/u cervical fusion; Z98.1-Arthrodesis status [...] spine documented in this encounter Care Teams Rope Laying Machine Operator Relationship Specialty Start Date End Date Noah Wagner MD [address] [place] [address] PCP - General Family Medicine 11/05/15 documented as of this encounter
--- OUTSIDE RECORDS SUMMARY | 2024-04-19 16:23 | XMS_ITS | Encounter Summary ---
Author Organization [facility] Address [address] [place] [address] Care Team Providers Care Animal Herder Name Role Phone Unavailable Primary Care Provider Unavailabl e Encounter Details Date Type Department Care Team (Late st Contact Info) Description 05/22/2009 Conversion En[place] [facility] [place] [address] [place] [address] Interface, See Report Social History [...] 7:07 AM EST) 05/22/2009 7:07 AM EST [facility] LAB[facility]ATORY - 05/23/2009 2:02 PM EST [facility] SURGICAL PATHOLOGY REPORT Patient Name: МАРИНА HALL. MR#: [id number] : 1965 Gender: M Ordering Physician: ADDIE CHAUHAN Copy To: ?? Location: 0101-5 Collected: 05/22/2009 Received: 05/22/2009 Reported: 05/23/2009 [...] are submitted in toto in one cassette. ??AJM/sk Microscopic Description Sections of the intervertebral disc material demonstrate fibrocartilage without inflammation or neoplasia. ??ALYSSA/sk Procedures/Addenda us See Report Interface PATHOLOGY/CYTOLOGY ORDERABL ES Final Result [facility] [address] [place] [address], documented in this encounter Visit Diagnoses Not on filedocumented in this encounter
--- OUTSIDE RECORDS SUMMARY | 2024-04-19 16:23 | XMS_ITS | Encounter Summary ---
Author Organization [facility] Address [address] [place] [address] Care Team Providers Care Air Conditioning Manager Name Role Phone Unavailable Primary Care Provider Unavailabl e Encounter Details Date Type Department Care Team (Late st Contact Info) Description 04/12/2011 Conversion Encounter [facility] HISTORICAL CONV [address] [place] [address] Interface, See Report Social History [...] AM EST) 04/12/2011 10:3 7 AM EST [facility] LABORATORY - 04/13/2011 11:32 [place] [address] SURGICAL PATHOLOGY REPORT Patient Name: МАРИНА HALL. MR#: [id number] : 1965 Gender: M Ordering Physician: JOSLYN WASHBURN Copy To: [facility] Endoscopy Location: [facility] Collected: 04/12/2011 Received: 04/12/2011 Reported: 04/13/2011 Clinical Diagnosis and History The working history is peptic ulcer disease; rule out Helicobacter. Final Diagnosis GASTRIC BIOPSIES: ? Changes compatible with reactive gastropathy; special stain negative for Helicobacter. [facility] [place] Amendments: Electronically Signed Out By Carl Rios M.D. Specimen(s) Received: Gastric Biopsy Gross Description Received in formalin labeled gastric biopsy consists of a 0.3x0.3x0.3 cm orozco/pink soft tissue which is submitted in toto in one cassette. /[facility] [place] Microscopic Description Sections show gastric pit hyperplasia [...] control, CFV stain is negative for Helicobacter. [facility] [place] Previous Pertinent History [id number], 03/14/1997. GASTRIC BIOPSIES: Chronic reactive gastritis. CFV stain - Negative for Helicobacter. ([facility]) ? Procedures/Addenda us See Report Interface PATHOLOGY/CYTOLOGY ORDERABL ES Final Result [facility] [address] [place] [address], documented in this encounter Visit Diagnoses Not on filedocumented in this encounter
--- OUTSIDE RECORDS SUMMARY | 2024-04-19 16:23 | XMS_ITS | Encounter Summary ---
Author Organization [employer] Address [address] [place] [address] Care Team Providers Care Can Patcher Name Role Phone Carl Patton MD Primary Care Provider [phone] Reason for Referral * Rehabilitation (Routine) - Closed Specialty Diagnoses / Procedures Referred By Contact Referred To Contact Cardiac Rehabilitation Diagnoses Stented coronary artery Christopher Khalil MD [address] [facility] [address] [place] [address] Phone: tel: fax: [place] [phone] [place] [facility] [address] [address] Phone: tel: Referral ID Status Reason Start Date Expiration Date V isits Requested Visits Authorized [id number] Closed Specialty Services Required 06/06/2023 12/03/2023 1 1 Reason for Visit * Reason Comments Chest Pain * Auth/Cert (Routine) Specialty Diagnoses / Procedures Referred By Contac t Referred To Contact Diagnoses NSTEMI (non-ST elevated myocardial infarction) (HCC) [place] [address] [address] [place] [phone] Phone: tel: fax: [place] [address] Inter[address] [place] [phone] Phone: tel: fax: Referral ID Status Reason Start Date Expiration Date Visits Re quested Visits Authorized [id number] 1 1 Encounter Details Date Type Department Care Team (Late st Contact Info) Description 06/03/2023 9:43 AM EST - 06/07/2023 3:41 PM EST Hospital Encounter [facility] 4 Interventional Care Unit 1 [place] [address] Shaina FultonDO [address] [place], [place] [id number] Samy Kulkarni MD [address] [facility] [address] [phone] Chaitanya Blum MD [address] [address] Raz Carmichael MD [address] [id number] Stented coronary artery (Primary Dx); NSTEMI (non-ST [...] place to sleep or slept in a nursing home (including now)? No 06/04/2023 Utilities Answer Date [...] your living situation today? I have a [facility] place to live 06/03/2023 Think about [...] Do you speak a language other than Italian at [facility]? No 06/03/2023 Do you want help with [...] original note were not included. DISCHARGE SUMMARY [facility] Patient Name: Arjun Melton : 1965 Date of Admission: 06/03/2023 Date of Discharge: 06/07/2023 3:41 PM Primary Care Physician: Carl Patton MD Consultations: Treatment Team: Consulting Physician: Debby Romero MD Consulting Physician: Glen Guallpa MD Consulting Physician: Shaina Fulton DO Discharge Diagnoses: NSTEMI (non-ST elevated myocardial [...] he went to work. He works at [employer]. He continued to feel unwell. 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 Order Status: Completed Updated: 06/04/23 1335 ?? Narrative: ?? TRANSTHORACIC ECHOCARDIOGRAPHY REPORT Demographics Patient Name: ISABEL Rios : 1965 Medical Record [id number] Age: 57 year(s) Number: Corporate ID Number: [id number] Gender Male Community Development Planner: Fior Olson RDCS Height: 68 inches Referring Physician: SAMY KULKARNI Weight: 163.01 pounds Interpreting DEBBY ROMERO MD BMI: 24.79 kg/m^2 Physician: Date of Service: 06/03/2023 Blood 147/77 mmHg Pressure: Room Number: ER 30 Type of Study: TTE procedure: ECHO COMPLETE (DOPPLER / COLOR) W OR WO CONTRAST. Patient Status: Routine IP Study Location: [facility] Quality: Good visualization Impression: ######################################## Indication: [...] 0.81 m/s E/A ratio: 1.17 m/s Volume pavwkmflk97.56 LV length: 7.76 cm ml Volume wuxphixb17.62 ml LVOT diameter: 1.87 cm Normal sized [...] Your Medications These [facility] at [address] [facility] [address] [phone] ?? nitroglycerin 0.4 MG SL tablet Physical [...] Discharge Follow UP: Contact information for follow-up [facility] Specialty: Acute Care Hospital [facility] [place] [address] [place] [address] Next Steps: Follow up DEBBY ROMERO MD Specialty: Interventional Cardiology, Cardiology [address] [facility] [address] [place] [address] Next Steps: Follow up in 1 month(s) Glen Guallpa MD Specialty: Nephrology [address] [facility] [address] [place] [address] Next Steps: Follow up in 1 week(s) Carl Patton MD Specialty: Family Medicine Relationship: PCP - General [address] [place] [address] Next Steps: Follow up Time Spent: 31 minutes documented in this encounter Discharge Instructions * Discharge Instructions* Gloria Bell RN - 06/07/2023 3:07 PM EST KMASON HELPER * Attachments The following attachments cannot be sent through Care Everywhere. * DECISION AID - CORONARY ARTERY DISEASE (KHMER) * Heart Attack Dong-nj-Femq (Italian) * Heart Attack - Warning Signs and What to Do (Italian) * Radial Site Care (Italian) * Coronary Angiogram With Stent Care After (Italian) * Atorvastatin Tablets (Italian) * Nitroglycerin Sublingual Tablets (Italian) * Ticagrelor Tablets (Italian) documented in this encounter Medications at Time [...] 23 minutes Signed: Raz Carmichael MD 06/07/2023 KMASON HELPER * Debby Romero MD - 06/07/2023 11:01 AM EST CARDIOLOGY [...] motion, Normal strength. ?? Integumentary: ??Warm, Dry, [place]. ?? Neurologic: ??Alert, Oriented. ?? Psychiatric: ??Cooperative, [...] (DOPPLER / COLOR) W OR WO CONTRAST [[id number]] Collected: 06/03/23 1151 Order Status: Completed Updated: 06/04/23 1335 Narrative: TRANSTHORACIC ECHOCARDIOGRAPHY REPORT Demographics Patient Name: ISABEL Rios : 1965 Medical Record [id number] Age: 57 year(s) Number: Corporate ID Number: [id number] Gender Male Community Development Planner: Fior Olson [facility] Height: 68 inches Referring Physician: SAMY KLUKARNI Weight: 163.01 pounds MD Interpreting DEBBY ROMERO MD BMI: 24.79 kg/m^2 Physician: Date of Service: 06/03/2023 Blood 147/77 mmHg Pressure: Room Number: ER 30 Type of Study: TTE procedure: ECHO COMPLETE (DOPPLER / COLOR) W OR WO CONTRAST. Patient Status: Routine [facility] Impression: ######################################## Indication: chest [...] 0.81 m/s E/A ratio: 1.17 m/s Volume .56 LV length: 7.76 cm ml Volume vvemmkzn40.62 ml LVOT diameter: 1.87 cm Normal sized [...] Principal Problem: NSTEMI (non-ST elevated myocardial infarction) ([facility]) IMPRESSION: ??? CAD-??ruled out for myocardial infarction [...] ??Echocardiography today or first thing tomorrow morning KMASON HELPER KMASON HELPER * Lilo Berg - 06/06/2023 3:47 PM ESTSummary: cardiac rehab I discussed with Mr. Melton cardiac rehab and sent the referral to [facility]. KMASON HELPER * Raz Carmichael MD - 06/06/2023 11:16 AM EST Images from the original note were not included. HOSPITALIST PROGRESS NOTE Patient: Arjun Melton Date: 06/06/2023 Subjective Date of Service: 06/06/2023 I saw and evaluated the patient this morning Patient's is at the bedside Patient's RN and nurse client portfolio manager is at the bedside Patient reported [...] delays: None Signed: Raz Carmichael MD 06/06/2023 KMASON HELPER KMASON HELPER * Debby Romero MD - 06/06/2023 9:53 [...] motion, Normal strength. ?? Integumentary: ??Warm, Dry, [place]. ?? Neurologic: ??Alert, Oriented. ?? Psychiatric: ??Cooperative, [...] (DOPPLER / COLOR) W OR WO CONTRAST [[id number]] Collected: 06/03/23 1151 Order Status: Completed Updated: 06/04/23 1335 Narrative: TRANSTHORACIC ECHOCARDIOGRAPHY REPORT Demographics Patient Name: ISABEL Rios : 1965 Medical Record [id number] Age: 57 year(s) Number: Corporate ID Number: [id number] Gender Male Community Development Planner: Fior Olson [facility] Height: 68 inches Referring Physician: SAMY KULKARNI Weight: 163.01 pounds Interpreting DEBBY ROMERO MD BMI: 24.79 kg/m^2 Physician: Date of Service: 06/03/2023 Blood 147/77 mmHg Pressure: Room Number: ER 30 Type of Study: TTE procedure: ECHO COMPLETE (DOPPLER / COLOR) W OR WO CONTRAST. Patient Status: Routine [facility]: Good visualization Impression: ######################################## Indication: chest [...] 0.81 m/s E/A ratio: 1.17 m/s Volume xiyfteiir06.56 LV length: 7.76 cm ml Volume nkaogqvg83.62 ml LVOT diameter: 1.87 cm Normal sized [...] Principal Problem: NSTEMI (non-ST elevated myocardial infarction) ([facility]) IMPRESSION: ??? CAD- ruled out for myocardial [...] ??Echocardiography today or first thing tomorrow morning. KMASON HELPER KMASON HELPER * Chaitanya Blum MD - 06/05/2023 12:07 [...] Signed: Chaitanya Hudson MD 06/05/2023, 12:16 PM KMASON HELPER * Debby Romero MD - 06/05/2023 10:12 AM EST CARDIOLOGY PROGRESS NOTE Name Arjun Melton, 1965, 57 y.o., male Primary Cardiology: Dr. Romero PCP: Carl Patton MD Admit Date 06/03/2023 [address] [place] [address] Subjective: No complaints today. No chest pains [...] motion, Normal strength. ?? Integumentary: ??Warm, Dry, [place]. ?? Neurologic: ??Alert, Oriented. ?? Psychiatric: ??Cooperative, [...] (DOPPLER / COLOR) W OR WO CONTRAST [[id number]] Collected: 06/03/23 1151 Order Status: Completed Updated: 06/04/23 1335 Narrative: TRANSTHORACIC ECHOCARDIOGRAPHY REPORT Demographics Patient Name: ISABEL Rios : 1965 Medical Record [id number] Age: 57 year(s) Number: Corporate ID Number: [id number] Gender Male Community Development Planner: Fior Olson [facility] Height: 68 inches Referring Physician: SAMY KULKARNI Weight: 163.01 pounds MD Interpreting DEBBY ROMERO MD BMI: 24.79 kg/m^2 Physician: Date of Service: 06/03/2023 Blood 147/77 mmHg Pressure: Room Number: ER 30 Type of Study: TTE procedure: ECHO COMPLETE (DOPPLER / COLOR) W OR WO CONTRAST. Patient Status: Routine [facility] Impression: ######################################## Indication: chest [...] 0.81 m/s E/A ratio: 1.17 m/s Volume .56 LV length: 7.76 cm ml Volume whtypczz96.62 ml LVOT diameter: 1.87 cm Normal sized [...] Principal Problem: NSTEMI (non-ST elevated myocardial infarction) ([facility]) IMPRESSION: ??? CAD- ruled out for myocardial [...] ??Echocardiography today or first thing tomorrow morning. KMASON HELPER KMASON HELPER KMASON HELPER * Chaitanya Blum MD - 06/04/2023 12:16 [...] Signed: Chaitanya Hudson MD 06/04/2023, 12:16 PM KMASON HELPER * Debby Romero MD - 06/04/2023 9:08 AM EST CARDIOLOGY PROGRESS NOTE Name Arjun Melton, 1965, 57 y.o., male Primary Cardiology: Dr. Romero PCP: Carl Patton MD Admit Date 06/03/2023 Patient Location [address] [place] [address] Subjective: Doing well today. Chest pain-free and [...] of motion, Normal strength. Integumentary: Warm, Dry, [place]. Neurologic: Alert, Oriented. Psychiatric: Cooperative, Appropriate mood [...] (DOPPLER / COLOR) W OR WO CONTRAST [[id number]] Resulted: 06/03/23 1227 Order Status: Sent Updated: [...] Echocardiography today or first thing tomorrow morning. KMASON HELPER KMASON HELPER documented in this encounter H&P Notes * [...] he went to work. He works at [employer]. He continued to feel unwell. 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 He works for the [employer]. Family History Mother and father disease. [...] RATE (MCT) 06/03/2023 66 BPM Incomplete ??? ME Interval 06/03/2023 134 ms Incomplete ??? QRS-INTERVAL (MSEC) 06/03/2023 88 ms Incomplete ??? QT Interval 06/03/2023 390 ms Incomplete ??? QTC Interval 06/03/2023 408 ms Incomplete ??? P Vilas 06/03/2023 31 degrees Incomplete ??? R AXIS (MCT) 06/03/2023 58 degrees Incomplete ??? T Wave Vil[place] 06/03/2023 45 degrees Incomplete ??? Chandler Diagnosis 06/03/2023 Incomplete Value: Age and gender [...] Samy Kulkarni MD, 06/03/2023 at 11:26 AM KMASON HELPER documented in this encounter Consult Notes * Debby Rmoero MD - 06/03/2023 1:09 PM ESTAssociated Order(s): [...] of motion, Normal strength. Integumentary: Warm, Dry, [place]. Neurologic: Alert, Oriented. Psychiatric: Cooperative, Appropriate mood [...] (DOPPLER / COLOR) W OR WO CONTRAST [[id number]] Resulted: 06/03/23 1227 Order Status: Sent Updated: [...] SAVANAH ELIZABETH PA-C, 06/03/2023 at 1:10 PM KMASON HELPER KMASON HELPER documented in this encounter ED Notes * [...] He has not recently followed with a steam drier operator. He did take nitroglycerin and 3 baby [...] from Bag 06/03/23 1128) perflutren protein-a microsphr (im3D) Susp 3 mL (3 mLs Intravenous Given [...] (CARDENE) injection (1.25 mg Intravenous Given 06/06/23 1135) Results for orders placed or performed during [...] Your Medications These medications [facility] to [facility] at [facility] [address] [facility] [address] [facility] [address], [facility] [address] ?? atorvastatin 80 MG tablet ?? nitroglycerin 0.4 MG SL tablet ?? ticagrelor 90 mg Tab tablet Contact information for follow-up [facility] Specialty: [facility] [address] [place] [address] Next Steps: Follow up DEBBY ROMERO MD Specialty: Interventional Cardiology, Cardiology [address] [facility] [address] [place] [address] Next Steps: Follow up in 1 month(s) Glen Guallpa MD Specialty: Nephrology [address] [facility] [address] [place] [address] Next Steps: Follow up in 1 week(s) Carl Patton MD Specialty: Family Medicine Relationship: PCP - General [address] [facility] [place] [address] Next Steps: Follow up Shaina [place] DO 06/09/23 0813 KMASON HELPER * Alida Castro - 06/03/2023 9:47 AM EST Pt arrived to ED via EMS complaining of CP, SOB, and N/V since midnight. Pt given 1 Nitro and 324mgAspirin. KMASON HELPER documented in this encounter Miscellaneous Notes * [...] Patient achieves/maintains stable cardiac rhythm Outcome: Progressing KMASON HELPER * Plan of Care - Annabelle Jimenez [...] Patient achieves/maintains stable cardiac rhythm Outcome: Progressing KMASON HELPER * Plan of Care - Julio Pham [...] Patient achieves/maintains stable cardiac rhythm Outcome: Progressing KMASON HELPER * Plan of Iram [place] RN - [...] Patient achieves/maintains stable cardiac rhythm Outcome: Progressing KMASON HELPER * Plan of Care - Julio Pham RN - 06/03/2023 6:34 PM EST [...] Patient achieves/maintains stable cardiac rhythm Outcome: Progressing KMASON HELPER documented in this encounter Plan of Treatment [...] 136 - 146 meq/L 06/07/2023 5:11 AM [facility] Potassium 4.0 3.5 - 5.1 meq/L 06/07/2023 5:11 AM [facility] Chloride 106 102 - 112 meq/L 06/07/2023 5:11 AM [facility] CO2 26 21 - 32 meq/L 06/07/2023 5:11 AM [facility] Anion Gap 7(L) 9 - 20 06/07/2023 5:11 AM [facility] BUN 20 7 - 22 mg/dL 06/07/2023 5:11 AM [facility] Creatinine 1.55(H) 0.70 - 1.30 mg/dL 06/07/2023 5:11 AM [facility] BUN/Creatinine 13 8 - 20 06/07/2023 5:11 AM [facility] Glucose 92 74 - 106 mg/dL 06/07/2023 5:11 AM [facility] Calcium 8.9 8.4 - 10.1 mg/dL 06/07/2023 5:11 AM [facility] Osmolality Calc 272.4 5:11 AM [facility] eGFR (mL/min/1.73m2) 51(L) >=60 mL/min/1.7 3m2 06/07/2023 5:11 AM [facility] Comment:eGFR of <60 suggests chronic kidney disease if found over a 3 month period of time. eGFR <15 indicates renal failure. Blood Venipuncture / Unknown 06/07/2023 4:29 AM EST 06/07/2023 4:46 AM EST us Chaitanya Blum MD LAB BLOOD ORDERABLES Final Re sult [facility] [address] [phone] * (ABNORMAL) CBC (Hemogram only) (06/07/2023 4:29 AM EST) WBC 10.3(H) 3.6 - 9.5 K/??L 06/07/2023 5:01 AM [facility] RBC 4.61 4.20 - 5.70 M/??L 06/07/2023 5:01 AM [facility] Hemoglobin 11.4(L) 13.7 - 17.5 GM/DL 06/07/2023 5:01 AM [facility] Hematocrit 35.8(L) 40.0 - 51.0 % 06/07/2023 5:01 AM [facility] MCV 78(L) 79 - 95 fL 06/07/2023 5:01 AM [facility] MCH 24.7(L) 25.6 - 32.2 pg 06/07/2023 5:01 AM [facility] MCHC 31.8(L) 32.2 - 36.5 GM/DL 06/07/2023 5:01 AM [facility] RDW 16.8(H) 11.7 - 14.9 % 06/07/2023 5:01 AM [facility] Platelets 506(H) 163 - 369 K/CU MM 06/07/2023 5:01 AM [facility] MPV 9.2(L) 9.4 - 12.4 fL 06/07/2023 5:01 AM [facility] Blood Venipuncture / Unknown 06/07/2023 4:29 AM EST 06/07/2023 4:44 AM EST us Amarilis Rojas APRN LAB BLOOD ORDERABLES Final Result [facility] [address] [place] [address], [facility] [phone] * CARDIAC CATH - LEFT HEART CATH W/ POSSIBLE INTERVENTION (06/06/2023 2:59 PM EST) Anatomical Region Laterality Modality Heart Other 06/06/2023 2:19 PM EST Narrative 06/06/2023 3:27 PM EST Cardiac Diagnostic + PCI Report Demographics Patient Name ? ISABEL Rios ??Date of ?1965 Patient # ?[id number] ?Accession # ?[id number] ?Medical Record # Physician ?CHRISTOPHER KHALIL ?? Date of Study ?06/06/2023 ?MD Referring ?Interventional Physician ?physician Procedure Procedure Type Diagnostic procedure: LHC/Coronaries w/wo LV gram PCI procedure: Stent - MART, PTCA Conclusions Procedure Description Patient was brought to Cardiac Catheterization Lab. Informed consent was obtained and risk and benefits were discussed with patient. A 6 Luxembourger sheath was placed in the Right Radial [...] Diagnostic Catheters ??- A5FR Radial TIG 4.0 [id number] used for: pressure measurement. Contrast Material ??- Rycjwfttm90 ml Fluoroscopy Time: Total: 5:48 minutes. Fluoroscopy [...] ISABEL Rios Date of Birth1965 Patient # [id number] Medical Record # Physician CHRISTOPHER KHALIL Date of Study06/06/2023 Referring Interventional Physician physician Procedure Procedure Type Diagnostic procedure: LHC/Coronaries w/wo LV gram PCI procedure: Stent - MART, PTCA Conclusions Procedure Description Patient was brought to Cardiac Catheterization Lab. Informed consent was obtained and risk and benefits were discussed with patient. A 6 Luxembourger sheath was placed in the Right Radial [...] distal segment long plaque with haziness and bsecrfmd60-85%. A small-medium OM emerges from the diseased [...] Diagnostic Catheters - A5FR Radial TIG 4.0 [id number] used for: pressure measurement. Contrast Material - Ydpsozaxo47 ml Fluoroscopy Time: Total: 5:48 minutes. Fluoroscopy [...] - 137 sec 06/06/2023 11:25 PM EST [facility] Navigation Officer [id number] 06/06/2023 11:25 PM EST [facility] Blood 06/06/2023 2:45 PM EST 06/06/2023 11:25 PM EST Narrative [facility] - 06/06/2023 11:25 PM EST Navigation Officer ID is - [id number] Raz Carmichael MD POINT OF CARE TEST ORDERABLES F inal Result Performing Organization Address City/State/[facility] Co de Phone Number [facility] [address] [phone] * NM myocardial perfusion SPECT (at rest) (06/06/2023 1:42 PM EST) Anatomical Region Laterality Modality Heart Nuclear Medicine Narrative 06/06/2023 3:23 PM EST The patient was intended for a full stress test however developed chest pain just before the initiation of the stress test and therefore I asked the hvac residential service technician to inject him to assess myocardial perfusion [...] 12 lead (06/06/2023 11:13 AM EST) Pathologist [facility] VENTRICULAR RATE EKG/MIN 74 BPM GE MUSE ATRIAL RATE (MCT) 74 BPM GE MUSE ME Interval 152 ms GE MUSE QRS-INTERVAL (MSEC) 86 ms GE MUSE QT Interval 400 ms GE MUSE QTC Interval 444 ms GE MUSE P Vilas 76 degrees GE MUSE R AXIS (MCT) 25 degrees GE MUSE T Wave Vilas -16 degrees GE MUSE Chandler Diagnosis Normal sinus rhythm Nonspecific ST abnormality Abnormal ECG When compared with ECG of 03-JUN-2023 09:54, aberrant conduction is no longer present T wave inversion now evident in Inferior leads Nonspecific T wave abnormality no longer evident in Lateral leads Confirmed by Ailyn ROMERO NEZAR (3), editorial specialist MARIA D ALCALA (37) on 06/08/2023 10:44:21 AM GE MUSE 06/06/2023 11:1 3 AM EST 06/08/2023 10:44 AM EST Raz Carmichael MD ECG ORDERABLES Final Result GE MUSE * (ABNORMAL) CBC with automated diff (06/06/2023 5:48 AM EST) [facility] WBC 9.0 3.6 - 9.5 K/??L 06/06/2023 6:43 AM EST [facility] RBC 4.81 4.20 - 5.70 M/??L 06/06/2023 6:43 AM EST [facility] Hemoglobin 11.7(L) 13.7 - 17.5 GM/DL 06/06/2023 6:43 AM EST [facility] Hematocrit 37.7(L) 40.0 - 51.0 % 06/06/2023 6:43 AM [facility] MCV 78(L) 79 - 95 fL 06/06/2023 6:43 AM [facility] MCH 24.3(L) 25.6 - 32.2 pg 06/06/2023 6:43 AM [facility] MCHC 31.0(L) 32.2 - 36.5 GM/DL 06/06/2023 6:43 AM [facility] RDW 16.6(H) 11.7 - 14.9 % 06/06/2023 6:43 AM [facility] Platelets 575(H) 163 - 369 K/CU MM 06/06/2023 6:43 AM [facility] MPV 9.6 9.4 - 12.4 fL 06/06/2023 6:43 AM [facility] % Neutros 67 34 - 71 % 06/06/2023 6:43 AM [facility] % Lymphs 20 19 - 53 % 06/06/2023 6:43 AM [facility] % Monos 9 3 - 9 % 06/06/2023 6:43 AM [facility] % Eos 4(H) 0 - 1 % 06/06/2023 6:43 AM [facility] % Baso 1 0 - 2 % 06/06/2023 6:43 AM [facility] NRBC Absolute 0.00 0 - 0.12 K/ul 06/06/2023 6:43 AM [facility] # Neutros 6.01 1.56 - 6.13 K/??L 06/06/2023 6:43 AM [facility] # Lymphs 1.76 1.00 - 3.50 K/??L 06/06/2023 6:43 AM [facility] # Monos 0.79 0.16 - 1.00 K/??L 06/06/2023 6:43 AM [facility] # Eos 0.36 0.00 - 0.80 K/??L 06/06/2023 6:43 AM [facility] # Baso 0.06 0.00 - 0.20 K/??L 06/06/2023 6:43 AM [facility] Immature Granulocytes-Re lative 0.40 0.00 - 0.60 % 06/06/2023 6:43 AM [facility] # IG 0.04 0.00 - 0.05 K/uL 06/06/2023 6:43 AM [facility] Blood Venipuncture / Unknown 06/06/2023 5:48 AM EST 06/06/2023 6:27 AM EST [facility] - 06/06/2023 6:43 AM EST When [...] ORDERABLES Final Resu lt Performing Organization Address City/State/[facility] Co de Phone Number [facility] [address] [phone] * (ABNORMAL) Basic Metabolic Panel (06/06/2023 5:48 AM EST) Sodium 137 136 - 146 meq/L 06/06/2023 7:09 AM [facility] Potassium 4.1 3.5 - 5.1 meq/L 06/06/2023 7:09 AM [facility] Chloride 105 102 - 112 meq/L 06/06/2023 7:09 AM [facility] [facility] CO2 28 21 - 32 meq/L 06/06/2023 7:09 AM [facility] Anion Gap 8(L) 9 - 20 06/06/2023 7:09 AM [facility] BUN 17 7 - 22 mg/dL 06/06/2023 7:09 AM [facility] Creatinine 1.58(H) 0.70 - 1.30 mg/dL 06/06/2023 7:09 AM [facility] BUN/Creatinine 11 8 - 20 06/06/2023 7:09 AM [facility] Glucose 96 74 - 106 mg/dL 06/06/2023 7:09 AM [facility] Calcium 9.0 8.4 - 10.1 mg/dL 06/06/2023 7:09 AM [facility] Osmolality Calc 275.2 7:09 AM [facility] eGFR (mL/min/1.73m2) 50(L) >=60 mL/min/1.7 3m2 06/06/2023 7:09 AM [facility] Comment:eGFR of <60 suggests chronic kidney disease if found over a 3 month period of time. eGFR <15 indicates renal failure. Blood Venipuncture / Unknown 06/06/2023 5:48 AM EST 06/06/2023 6:27 AM EST Chaitanya Blum MD LAB BLOOD ORDERABLES Final Re sult Performing Organization Address [facility]/ZIP Co de Phone Number [facility] [address] [phone] * (ABNORMAL) PTT Heparin Protocol (06/06/2023 5:48 AM EST) PTT Heparin 37.9(L) 45 - 65 seconds 06/06/2023 7:31 AM [facility] Blood Venipuncture / Unknown 06/06/2023 5:48 AM EST 06/06/2023 6:27 AM EST us Christopher Weber PA-C LAB BLOOD ORDERABLES Final Result Performing Organization Address City/[facility]/ZIP Co de Phone Number [facility] [address] [phone] * (ABNORMAL) CBC with automated diff (06/05/2023 10:07 PM EST) WBC 10.4(H) 3.6 - 9.5 K/??L 06/05/2023 10:28 PM [facility] RBC 4.65 4.20 - 5.70 M/??L 06/05/2023 10:28 PM [facility] Hemoglobin 11.4(L) 13.7 - 17.5 GM/DL 06/05/2023 10:28 PM [facility] Hematocrit 36.3(L) 40.0 - 51.0 % 06/05/2023 10:28 PM [facility] MCV 78(L) 79 - 95 fL 06/05/2023 10:28 PM [facility] MCH 24.5(L) 25.6 - 32.2 pg 06/05/2023 10:28 PM [facility] MCHC 31.4(L) 32.2 - 36.5 GM/DL 06/05/2023 10:28 PM [facility] RDW 17.0(H) 11.7 - 14.9 % 06/05/2023 10:28 PM [facility] Platelets 570(H) 163 - 369 K/CU MM 06/05/2023 10:28 PM [facility] MPV 9.4 9.4 - 12.4 fL 06/05/2023 10:28 PM [facility] % Neutros 60 34 - 71 % 06/05/2023 10:28 PM [facility] % Lymphs 25 19 - 53 % 06/05/2023 10:28 PM [facility] % Monos 10(H) 3 - 9 % 06/05/2023 10:28 PM [facility] % Eos 4(H) 0 - 1 % 06/05/2023 10:28 PM [facility] % Baso 1 0 - 2 % 06/05/2023 10:28 PM [facility] NRBC Absolute 0.00 0 - 0.12 K/ul 06/05/2023 10:28 PM [facility] # Neutros 6.20(H) 1.56 - 6.13 K/??L 06/05/2023 10:28 PM [facility] # Lymphs 2.64 1.00 - 3.50 K/??L 06/05/2023 10:28 PM [facility] # Monos 1.02(H) 0.16 - 1.00 K/??L 06/05/2023 10:28 PM EST [facility] # Eos 0.45 0.00 - 0.80 K/??L 06/05/2023 10:28 PM EST [facility] # Baso 0.07 0.00 - 0.20 K/??L 06/05/2023 10:28 PM EST [facility] Immature Granulocytes-Re lative 0.30 0.00 - 0.60 % 06/05/2023 10:28 PM EST [facility] # IG 0.03 0.00 - 0.05 K/uL 06/05/2023 10:28 PM EST [facility] Blood Venipuncture / Unknown 06/05/2023 10:07 PM EST 06/05/2023 10:22 PM EST Narrative [facility] - 06/05/2023 10:28 PM EST When [...] DO LAB BLOOD ORDERABLES Final Resu lt [facility] [address] [phone] * (ABNORMAL) PTT Heparin Protocol (06/05/2023 10:07 PM EST) PTT Heparin 99.5(HH) 45 - 65 seconds 06/05/2023 10:40 PM EST [facility] Blood Venipuncture / Unknown 06/05/2023 10:07 PM EST 06/05/2023 10:22 PM EST us Chaitanya Blum MD LAB BLOOD ORDERABLES Final Re sult Performing Organization Address City/[facility]/ZIP Co de Phone Number [facility] [address] [phone] * (ABNORMAL) PTT Heparin Protocol (06/05/2023 3:46 PM EST) PTT Heparin 41.9(L) 45 - 65 seconds 06/05/2023 4:20 PM EST [facility] Blood Venipuncture / Unknown 06/05/2023 3:46 PM EST 06/05/2023 3:58 PM EST us Chaitanya Blum MD LAB BLOOD ORDERABLES Final Re sult Performing Organization Address City/[facility]/ZIP Co de Phone Number [facility] [address] [phone] * PTT Heparin Protocol (06/05/2023 9:48 AM EST) PTT Heparin 47.4 45 - 65 seconds 06/05/2023 10:20 AM EST [facility] Blood Venipuncture / Unknown 06/05/2023 9:48 AM EST 06/05/2023 10:04 AM EST Chaitanya Blum MD LAB BLOOD ORDERABLES Final Re sult Performing Organization Address [facility] Co de Phone Number [facility] [address] [phone] * (ABNORMAL) PTT Heparin Protocol (06/05/2023 6:36 AM EST) PTT Heparin 130.2(HH) 45 - 65 seconds 06/05/2023 7:34 AM EST [facility] Blood Venipuncture / Unknown 06/05/2023 6:36 AM EST 06/05/2023 6:56 AM EST us Narendra Hu DO LAB BLOOD ORDERABLES Final Res ult Performing Organization Address City/[facility]/ZIP Co de Phone Number [facility] [address] [phone] * (ABNORMAL) CBC with automated diff (06/05/2023 4:19 AM [facility]) WBC 7.1 3.6 - 9.5 K/??L 06/05/2023 5:11 AM [facility] RBC 4.64 4.20 - 5.70 M/??L 06/05/2023 5:11 AM [facility] Hemoglobin 11.2(L) 13.7 - 17.5 GM/DL 06/05/2023 5:11 AM [facility] Hematocrit 36.7(L) 40.0 - 51.0 % 06/05/2023 5:11 AM [facility] MCV 79 79 - 95 fL 06/05/2023 5:11 AM [facility] MCH 24.1(L) 25.6 - 32.2 pg 06/05/2023 5:11 AM [facility] MCHC 30.5(L) 32.2 - 36.5 GM/DL 06/05/2023 5:11 AM [facility] RDW 17.0(H) 11.7 - 14.9 % 06/05/2023 5:11 AM [facility] Platelets 550(H) 163 - 369 K/CU MM 06/05/2023 5:11 AM [facility] MPV 9.5 9.4 - 12.4 fL 06/05/2023 5:11 AM [facility] % Neutros 59 34 - 71 % 06/05/2023 5:11 AM [facility] % Lymphs 25 19 - 53 % 06/05/2023 5:11 AM [facility] % Monos 10(H) 3 - 9 % 06/05/2023 5:11 AM [facility] % Eos 4(H) 0 - 1 % 06/05/2023 5:11 AM [facility] % Baso 1 0 - 2 % 06/05/2023 5:11 AM [facility] NRBC Absolute 0.00 0 - 0.12 K/ul 06/05/2023 5:11 AM [facility] # Neutros 4.23 1.56 - 6.13 K/??L 06/05/2023 5:11 AM EST [facility] # Lymphs 1.79 1.00 - 3.50 K/??L 06/05/2023 5:11 AM EST [facility] # Monos 0.72 0.16 - 1.00 K/??L 06/05/2023 5:11 AM EST [facility] # Eos 0.30 0.00 - 0.80 K/??L 06/05/2023 5:11 AM EST [facility] # Baso 0.05 0.00 - 0.20 K/??L 06/05/2023 5:11 AM [facility] Immature Granulocytes-Re lative 0.60 0.00 - 0.60 % 06/05/2023 5:11 AM [facility] # IG 0.04 0.00 - 0.05 K/uL 06/05/2023 5:11 AM [facility] Blood Venipuncture / Unknown 06/05/2023 4:19 AM EST 06/05/2023 5:00 AM EST Narrative [facility] - 06/05/2023 5:11 AM EST When [...] DO LAB BLOOD ORDERABLES Final Resu lt [facility] [address] [phone] * (ABNORMAL) Basic Metabolic Panel (06/05/2023 4:19 AM EST) Sodium 137 136 - 146 meq/L 06/05/2023 6:48 AM [facility] Potassium 3.9 3.5 - 5.1 meq/L 06/05/2023 6:48 AM [facility] Chloride 105 102 - 112 meq/L 06/05/2023 6:48 AM [facility] CO2 28 21 - 32 meq/L 06/05/2023 6:48 AM [facility] Anion Gap 8(L) 9 - 20 06/05/2023 6:48 AM [facility] BUN 16 7 - 22 mg/dL 06/05/2023 6:48 AM [facility] Creatinine 1.58(H) 0.70 - 1.30 mg/dL 06/05/2023 6:48 AM [facility] BUN/Creatinine 10 8 - 20 06/05/2023 6:48 AM [facility] Glucose 88 74 - 106 mg/dL 06/05/2023 6:48 AM [facility] Calcium 9.2 8.4 - 10.1 mg/dL 06/05/2023 6:48 AM [facility] Osmolality Calc 274.4 6:48 AM [facility] eGFR (mL/min/1.73m2) 50(L) >=60 mL/min/1.7 3m2 06/05/2023 6:48 AM [facility] Comment:eGFR of <60 suggests chronic kidney disease if found over a 3 month period of time. eGFR <15 indicates renal failure. Blood Venipuncture / Unknown 06/05/2023 4:19 AM EST 06/05/2023 6:27 AM EST us Chaitanya Blum MD LAB BLOOD ORDERABLES Final Re sult Performing Organization Address City/State/[facility] Co de Phone Number [facility] [address] [phone] * (ABNORMAL) PTT Heparin Protocol (06/05/2023 4:19 AM EST) PTT Heparin 126.3(HH) 45 - 65 seconds 06/05/2023 5:34 AM [facility] Blood Venipuncture / Unknown 06/05/2023 4:19 AM EST 06/05/2023 5:01 AM EST us Chaitanya Blum MD LAB BLOOD ORDERABLES Final Re sult [facility] [address] [place] [address], [facility] [phone] * Magnesium (06/04/2023 8:35 AM EST) Magnesium 2.0 1.5 - 2.4 mg/dL 06/04/2023 9:21 AM EST [facility] Blood Venipuncture / Unknown 06/04/2023 8:35 AM EST 06/04/2023 8:53 AM EST us Samy Kulkarni MD LAB BLOOD ORDERABLES Sharyn l Result Performing Organization Address [facility]/ZIP Co de Phone Number [facility] [address] [phone] * (ABNORMAL) Lipid panel (06/04/2023 8:35 AM EST) Pathologist [facility] Triglycerides 117 0 - 249 mg/dL 06/04/2023 9:21 AM [facility] Cholesterol 235(H) 0 - 199 mg/dL 06/04/2023 9:21 AM [facility] Comment: 200 to 239 mg/dL = ??Moderate (borderline) >239 mg/dL ? = ??High HDL 55 >=40 mg/dL 06/04/2023 9:21 AM [facility] Comment: >=60 mg/dL = Desirable <40 mg/dL ??= Increased Risk All other components are listed individually or are calculations VLDL 23.4 5 - 40 mg/dL 06/04/2023 9:21 AM [facility] Cholesterol/HDL ratio 4.3(H) 0.0 - 3.2 06/04/2023 9:21 AM [facility] LDl/HDL Ratio 3 0 - 4 06/04/2023 9:21 AM [facility] RISK COMP 4 06/04/2023 9:21 AM [facility] LDL Cholesterol, Calculated 157(H) 0 - 99 mg/dL 06/04/2023 9:21 AM [facility] Blood Venipuncture / Unknown 06/04/2023 8:35 AM EST 06/04/2023 8:53 AM EST us Samy Kulkarni MD LAB BLOOD ORDERABLES Sharyn bhakta Result [facility] [address] [phone] * (ABNORMAL) Basic Metabolic Panel (06/04/2023 8:35 AM EST) Sodium 138 136 - 146 meq/L 06/04/2023 9:21 AM [facility] Potassium 4.4 3.5 - 5.1 meq/L 06/04/2023 9:21 AM [facility] Chloride 103 102 - 112 meq/L 06/04/2023 9:21 AM [facility] CO2 31 21 - 32 meq/L 06/04/2023 9:21 AM [facility] Anion Gap 8(L) 9 - 20 06/04/2023 9:21 AM [facility] BUN 13 7 - 22 mg/dL 06/04/2023 9:21 AM [facility] Creatinine 1.70(H) 0.70 - 1.30 mg/dL 06/04/2023 9:21 AM [facility] BUN/Creatinine 8 8 - 20 06/04/2023 9:21 AM [facility] Glucose 106 74 - 106 mg/dL 06/04/2023 9:21 AM [facility] Calcium 9.7 8.4 - 10.1 mg/dL 06/04/2023 9:21 AM [facility] Osmolality Calc 276.2 9:21 AM [facility] eGFR (mL/min/1.73m2) 46(L) >=60 mL/min/1.7 3m2 06/04/2023 9:21 AM [facility] Comment:eGFR of <60 suggests chronic kidney disease if found over a 3 month period of time. eGFR <15 indicates renal failure. Blood Venipuncture / Unknown 06/04/2023 8:35 AM EST 06/04/2023 8:53 AM EST us Samy Kulkarni MD LAB BLOOD ORDERABLES Sharyn bhakta Result Performing Organization Address [facility] de Phone Number [facility] [address] [phone] * PTT Heparin Protocol (06/04/2023 8:34 AM EST) PTT Heparin 58.9 45 - 65 seconds 06/04/2023 9:07 AM EST [facility] Blood Venipuncture / Unknown 06/04/2023 8:34 AM EST 06/04/2023 8:53 AM EST Samy Kulkarni MD LAB BLOOD ORDERABLES Sharyn l Result Performing Organization Address [facility] Phone Number [facility] [address] [phone] * (ABNORMAL) High Sensitivity Troponin I (06/04/2023 8:34 AM EST) [facility] Troponin I High Sensitivity (pg/mL) 233.4(H) 3 - 58.8 pg/mL 06/04/2023 9:19 AM EST [facility] Comment: Troponin Result (pg/mL) ? *Interpretation [...] ORDERABLES Fin al Result Performing Organization Address City/State/[facility] Co de Phone Number [facility] [address] [place] [address] * (ABNORMAL) CBC with automated diff (06/04/2023 8:34 AM EST) WBC 8.4 3.6 - 9.5 K/??L 06/04/2023 9:03 AM [facility] RBC 4.79 4.20 - 5.70 M/??L 06/04/2023 9:03 AM [facility] Hemoglobin 11.7(L) 13.7 - 17.5 GM/DL 06/04/2023 9:03 AM [facility] Hematocrit 37.8(L) 40.0 - 51.0 % 06/04/2023 9:03 AM [facility] MCV 79 79 - 95 fL 06/04/2023 9:03 AM [facility] MCH 24.4(L) 25.6 - 32.2 pg 06/04/2023 9:03 AM [facility] MCHC 31.0(L) 32.2 - 36.5 GM/DL 06/04/2023 9:03 AM [facility] RDW 16.9(H) 11.7 - 14.9 % 06/04/2023 9:03 AM [facility] Platelets 622(H) 163 - 369 K/CU MM 06/04/2023 9:03 AM [facility] MPV 9.1(L) 9.4 - 12.4 fL 06/04/2023 9:03 AM [facility] % Neutros 67 34 - 71 % 06/04/2023 9:03 AM [facility] % Lymphs 21 19 - 53 % 06/04/2023 9:03 AM [facility] % Monos 8 3 - 9 % 06/04/2023 9:03 AM [facility] % Eos 4(H) 0 - 1 % 06/04/2023 9:03 AM [facility] % Baso 1 0 - 2 % 06/04/2023 9:03 AM [facility] NRBC Absolute 0.00 0 - 0.12 K/ul 06/04/2023 9:03 AM [facility] # Neutros 5.61 1.56 - 6.13 K/??L 06/04/2023 9:03 AM [facility] # Lymphs 1.78 1.00 - 3.50 K/??L 06/04/2023 9:03 AM [facility] # Monos 0.66 0.16 - 1.00 K/??L 06/04/2023 9:03 AM [facility] # Eos 0.30 0.00 - 0.80 K/??L 06/04/2023 9:03 AM [facility] # Baso 0.07 0.00 - 0.20 K/??L 06/04/2023 9:03 AM [facility] Immature Granulocytes-Re lative 0.20 0.00 - 0.60 % 06/04/2023 9:03 AM [facility] # IG 0.02 0.00 - 0.05 K/uL 06/04/2023 9:03 AM [facility] Blood Venipuncture / Unknown 06/04/2023 8:34 AM EST 06/04/2023 8:53 AM EST Narrative [facility] - 06/04/2023 9:03 AM EST When [...] ORDERABLES Sharyn bhakta Result Performing Organization Address City/[facility]/ZIP Co de Phone Number [facility] [address] [phone] * PTT Heparin Protocol (06/04/2023 12:18 AM EST) [facility] PTT Heparin 54.1 45 - 65 seconds 06/04/2023 1:12 AM EST [facility] Blood Venipuncture / Unknown 06/04/2023 12:18 AM EST 06/04/2023 12:43 AM EST Samy Kulkarni MD LAB BLOOD ORDERABLES Sharyn bhakta Result Performing Organization Address [facility] Co de Phone Number [facility] [address] [phone] * (ABNORMAL) High Sensitivity Troponin I (06/03/2023 6:22 PM EST) [facility] Troponin I High Sensitivity (pg/mL) 420.2(H) 3 - 58.8 pg/mL 06/03/2023 7:19 PM EST [facility] Comment: Troponin Result (pg/mL) ? *Interpretation [...] ORDERABLES Sharyn l Result Performing Organization Address [facility] Co de Phone Number [facility] [address] [place] [address] * PTT Heparin Protocol (06/03/2023 6:22 PM EST) PTT Heparin 53.2 45 - 65 seconds 06/03/2023 7:20 PM EST [facility] Blood Venipuncture / Unknown 06/03/2023 6:22 PM EST 06/03/2023 6:49 PM EST Samy Kulkarni MD LAB BLOOD ORDERABLES Sharyn l Result Performing Organization Address [facility] de Phone Number [facility] [address] [phone] * (ABNORMAL) High Sensitivity Troponin I (06/03/2023 12:50 PM EST) Troponin I High Sensitivity (pg/mL) 633.6(HH) 3 - 58.8 pg/mL 06/03/2023 1:17 PM EST [facility] Comment: Troponin Result (pg/mL) ? *Interpretation [...] DO LAB BLOOD ORDERABLES Final Resu lt [facility] [address] [phone] * ECHO COMPLETE (DOPPLER / COLOR) W CONTRAST (06/03/2023 12:27 PM EST) Anatomical Region Laterality Modality Heart Vascular Ultraso und 06/03/2023 11:5 1 AM EST Narrative 06/04/2023 1:35 PM EST TRANSTHORACIC ECHOCARDIOGRAPHY REPORT Demographics Patient Name: ? ISABEL Rios ?? : ? 1965 Medical Record ?[id number] ? Age: ? 57 year(s) Number: Corporate ID Number: ??[id number] ? Gender ? Male Community Development Planner: ?Fior Olson [facility] Height: ?68 inches Referring Physician: [...] ?? E/A ratio: 1.17 m/s ? Volume [id number] ?? LV length: 7.76 cm ml Volume hcyqscvi51.62 ml LVOT diameter: 1.87 cm Normal sized [...] Name: ISABEL Rios : 1965 Medical Record [id number] Age: 57 year(s) Number: Corporate ID Number: [id number] Gender Male Community Development Planner: Fior Olson [facility] Height: 68 inches Referring Physician: [...] 0.81 m/s E/A ratio: 1.17 m/s Volume [id number] LV length: 7.76 cm ml Volume dfenbxzq05.62 ml LVOT diameter: 1.87 cm Normal sized [...] - 65 seconds 06/03/2023 11:21 AM EST [facility] Blood Venipuncture / Unknown 06/03/2023 11:02 AM EST 06/03/2023 11:05 AM EST us Shaina Fulton DO LAB BLOOD ORDERABLES Final Resu lt [facility] [address] [place], [place] [id number] [phone] * Prothrombin time/INR (06/03/2023 11:02 AM EST) Protime 11.6 9.2 - 12.0 seconds 06/03/2023 11:21 AM [facility] INR 1.07 0.90 - 1.20 06/03/2023 11:21 AM [facility] Comment: Recommended therapeutic ranges using International [...] ORDERABLES Final Resu lt Performing Organization Address [facility]/ZIP Co de Phone Number [facility] [address] [phone] * (ABNORMAL) Ferritin (06/03/2023 10:26 AM EST) Ferritin 15.30(L) 26.00 - 388.00 ng/mL 06/03/2023 3:06 PM [facility] Blood Venipuncture / Unknown 06/03/2023 10:26 AM EST 06/03/2023 10:28 AM EST us Samy Kulkarni MD LAB BLOOD ORDERABLES Sharyn l Result Performing Organization Address City/[facility] Co de Phone Number [facility] [address] [phone] * Iron and TIBC (06/03/2023 10:26 AM EST) Iron 66.0 65.0 - 175.0 ug/dL 06/03/2023 3:06 PM [facility] TIBC 405 250 - 450 ug/dL 06/03/2023 3:06 PM [facility] % Saturation 16 15 - 55 % 06/03/2023 3:06 PM [facility] UIBC 339 06/03/2023 3:06 PM [facility] Blood Venipuncture / Unknown 06/03/2023 10:26 AM EST 06/03/2023 10:28 AM EST us Samy Kulkarni MD LAB BLOOD ORDERABLES Sharyn bhakta Result [facility] [address] [phone] * (ABNORMAL) Lipid panel (06/03/2023 10:26 AM EST) Triglycerides 207 0 - 249 mg/dL 06/03/2023 1:43 PM [facility] Cholesterol 206(H) 0 - 199 mg/dL 06/03/2023 1:43 PM [facility] Comment: 200 to 239 mg/dL = ??Moderate (borderline) >239 mg/dL ? = ??High HDL 42 >=40 mg/dL 06/03/2023 1:43 PM [facility] Comment: >=60 mg/dL = Desirable <40 mg/dL ??= Increased Risk All other components are listed individually or are calculations VLDL 41.4(H) 5 - 40 mg/dL 06/03/2023 1:43 PM [facility] Cholesterol/HDL ratio 4.9(H) 0.0 - 3.2 06/03/2023 1:43 PM [facility] LDl/HDL Ratio 3 0 - 4 06/03/2023 1:43 PM [facility] RISK COMP 5 06/03/2023 1:43 PM [facility] [facility] LDL Cholesterol, Calculated 123(H) 0 - 99 mg/dL 06/03/2023 1:43 PM [facility] Blood Venipuncture / Unknown 06/03/2023 10:26 AM EST 06/03/2023 10:28 AM EST us Savanah Elizabeth PA-C LAB BLOOD ORDERABLES Fin al Result [facility] [address] [phone] * (ABNORMAL) PROBNP (06/03/2023 10:26 AM EST) Pathologist [facility] ProBNP (pg/mL) 375(H) 0 - 125 pg/mL 06/03/2023 10:57 AM EST [facility] Blood Venipuncture / Unknown 06/03/2023 10:26 AM EST 06/03/2023 10:28 AM EST [facility] BLOOD ORDERABLES Final Resu lt Performing Organization Address City/[facility]/ZIP Co de Phone Number [facility] [address] [phone] * Magnesium (06/03/2023 10:26 AM EST) [facility] Magnesium 1.9 1.5 - 2.4 mg/dL 06/03/2023 10:57 AM EST [facility] Blood Venipuncture / Unknown 06/03/2023 10:26 AM EST 06/03/2023 10:28 AM EST [facility] LAB BLOOD ORDERABLES Final Resu lt [facility] [address] [phone] * (ABNORMAL) Comprehensive metabolic panel (06/03/2023 10:26 AM EST) [facility] Sodium 137 136 - 146 meq/L 06/03/2023 10:57 AM [facility] Potassium 4.0 3.5 - 5.1 meq/L 06/03/2023 10:57 AM [facility] Chloride 104 102 - 112 meq/L 06/03/2023 10:57 AM [facility] CO2 27 21 - 32 meq/L 06/03/2023 10:57 AM [facility] Calcium 9.5 8.4 - 10.1 mg/dL 06/03/2023 10:57 AM [facility] Glucose 100 74 - 106 mg/dL 06/03/2023 10:57 AM [facility] BUN 11 7 - 22 mg/dL 06/03/2023 10:57 AM [facility] Creatinine 1.39(H) 0.70 - 1.30 mg/dL 06/03/2023 10:57 AM [facility] BUN/Creatinine 8 8 - 20 06/03/2023 10:57 AM [facility] Albumin 3.6 3.4 - 5.0 g/dL 06/03/2023 10:57 AM [facility] Alkaline Phosphatase 60 27 - 136 U/L 06/03/2023 10:57 AM [facility] ALT 15(L) 16 - 61 U/L 06/03/2023 10:57 AM [facility] AST 13 5 - 37 U/L 06/03/2023 10:57 AM [facility] Total Bilirubin 0.4 0.2 - 1.2 mg/dL 06/03/2023 10:57 AM [facility] Protein, Total 7.0 6.4 - 8.2 gm/dL 06/03/2023 10:57 AM [facility] Anion Gap 10 9 - 20 06/03/2023 10:57 AM [facility] A/G Ratio 1.1 1.1 - 2.5 06/03/2023 10:57 AM [facility] Globulin 3.4 1.5 - 4.5 g/dL 06/03/2023 10:57 AM [facility] Osmolality Calc 273.3 10:57 AM [facility] eGFR (mL/min/1.73m2) 58(L) >=60 mL/min/1.7 3m2 06/03/2023 10:57 AM [facility] Comment:ESTIMATED GFR IS NOT ACCURATE CREATININE CLEARANCE IN PREDICTING GLOMERULAR FILTRATION RATE. ESTIMATED GFR IS NOT APPLICABLE FOR DIALYSIS PATIENTS. Blood Venipuncture / Unknown 06/03/2023 10:26 AM EST 06/03/2023 10:28 AM EST Shaina Donaldo DO LAB BLOOD ORDERABLES Final Resu lt [facility] 1 [place] [address], [facility] [phone] * SARS-CoV2/Influenza/RSV RT-PCR (06/03/2023 10:20 AM EST) SARS-COV2/RT-P CR Negative Negative DEVICE ID9 06/03/2023 11:32 AM EST [facility] Influenza A RT-PCR Negative Negative DEVICE ID9 06/03/2023 11:32 AM EST [facility] Influenza B RT-PCR Negative Negative DEVICE ID9 06/03/2023 11:32 AM EST [facility] RSV by RT-PCR Negative Negative DEVICE ID9 06/03/2023 11:32 AM EST [facility] Nasopharyngeal NASOPHARYNGEAL SWAB / Unknown 06/03/2023 10:20 AM EST 06/03/2023 10:24 AM EST [place] [facility] - 06/03/2023 11:32 AM EST The [...] SARS-CoV-2/Flu/RSV by their healthcare provider. ??Results from [facility] Xpert Xpress SARS-CoV-2/Flu/RSV test should be [...] the Act. Fact Sheet for Healthcare Providers: https://www.[employer]/Documents/Xpert%20Xpress%20SARS%20CoV-2/Fact%20Sheets/30 2-390 2%44RGPC-ZWV-7%20HEALTHCARE%20PROVIDERS%20FACT%20SHEET.pdf Fact Sheet for Healthcare Patients: https://www.MyWer[employer]/Documents/Xpert%20Xpress%20SARS%20Cov-2/Fact%20Sheets/30 2-380 1%10GNTH-TIS-8%20PATIENT%20FACT%20SHEET.pdf Shaina Fulton DO MICROBIOLOGY - GENERAL ORDERABL ES Final Result Performing Organization Address [facility]/State/[facility] Co de Phone Number [facility] [address] [phone] * (ABNORMAL) High Sensitivity Troponin I (06/03/2023 10:20 AM EST) Troponin I High Sensitivity (pg/mL) 616.2(HH) 3 - 58.8 pg/mL 06/03/2023 10:54 AM EST [facility] Comment: Troponin Result (pg/mL) ? *Interpretation [...] ORDERABLES Final Resu lt Performing Organization Address [facility]/State/[facility] Co de Phone Number [facility] [address] [phone] * (ABNORMAL) CBC with Auto Diff (06/03/2023 10:20 AM EST) WBC 9.6(H) 3.6 - 9.5 K/??L 06/03/2023 10:27 AM EST [facility] RBC 4.32 4.20 - 5.70 M/??L 06/03/2023 10:27 AM [facility] Hemoglobin 10.6(L) 13.7 - 17.5 GM/DL 06/03/2023 10:27 AM [facility] Hematocrit 33.6(L) 40.0 - 51.0 % 06/03/2023 10:27 AM [facility] MCV 78(L) 79 - 95 fL 06/03/2023 10:27 AM [facility] MCH 24.5(L) 25.6 - 32.2 pg 06/03/2023 10:27 AM [facility] MCHC 31.5(L) 32.2 - 36.5 GM/DL 06/03/2023 10:27 AM [facility] RDW 16.6(H) 11.7 - 14.9 % 06/03/2023 10:27 AM [facility] Platelets 595(H) 163 - 369 K/CU MM 06/03/2023 10:27 AM [facility] MPV 9.1(L) 9.4 - 12.4 fL 06/03/2023 10:27 AM [facility] % Neutros 73(H) 34 - 71 % 06/03/2023 10:27 AM [facility] % Lymphs 18(L) 19 - 53 % 06/03/2023 10:27 AM [facility] % Monos 7 3 - 9 % 06/03/2023 10:27 AM [facility] % Eos 1 0 - 1 % 06/03/2023 10:27 AM [facility] % Baso 1 0 - 2 % 06/03/2023 10:27 AM [facility] NRBC Absolute 0.00 0 - 0.12 K/ul 06/03/2023 10:27 AM [facility] # Neutros 6.98(H) 1.56 - 6.13 K/??L 06/03/2023 10:27 AM [facility] # Lymphs 1.72 1.00 - 3.50 K/??L 06/03/2023 10:27 AM [facility] # Monos 0.66 0.16 - 1.00 K/??L 06/03/2023 10:27 AM [facility] # Eos 0.12 0.00 - 0.80 K/??L 06/03/2023 10:27 AM [facility] # Baso 0.06 0.00 - 0.20 K/??L 06/03/2023 10:27 AM [facility] Immature Granulocytes-Re lative 0.40 0.00 - 0.60 % 06/03/2023 10:27 AM [facility] # IG 0.04 0.00 - 0.05 K/uL 06/03/2023 10:27 AM EST [facility] Blood Venipuncture / Unknown 06/03/2023 10:20 AM EST 06/03/2023 10:24 AM EST Narrative [facility] - 06/03/2023 10:27 AM EST When [...] DO LAB BLOOD ORDERABLES Final Resu lt [facility] [address] [phone] * XR chest 1 view portable / [...] ATRIAL RATE (MCT) 66 BPM GE MUSE ME Interval 134 ms GE MUSE QRS-INTERVAL (MSEC) 88 ms GE MUSE QT Interval 390 ms GE MUSE QTC Interval 408 ms GE MUSE P Vil[place] 31 degrees GE MUSE R AXIS (MCT) 58 degrees GE MUSE T Wave [place] 45 degrees GE MUSE [place] Diagnosis Age and gender specific ECG analysis Sinus rhythm with Possible premature atrial complexes with aberrant conduction Otherwise normal ECG No previous ECGs available Confirmed by Tomeka WING, MED ([id number]), editorial specialist Naomy Main ([id number]) on 06/03/2023 3:43:32 PM GE MUSE 06/03/2023 [...] Intra-op 1456 (Given - Provider: Aury Little, FROYLAN) nitroglycerin (NITROSTAT) SL tablet 0.4 mg 0.4 [...] minutes. documented in this encounter Care Teams Can Patcher Relationship Specialty Start Date End Date Carl Patton MD [address] [place] [address] PCP - General Family Medicine 06/03/23 documented as of this encounter
--- OUTSIDE RECORDS SUMMARY | 2024-04-19 16:23 | XMS_ITS | Encounter Summary ---
Author Organization [facility] Address [address] [place] [address] Care Team Providers Care Court Of Appeals Judge Name Role Phone Alesha Alamo Primary Care Provider [phone] Encounter Details Date Type Department Care Team (Late st Contact Info) Description 07/04/2015 8:39 AM EST - 07/04/2015 11:59 PM EST Hospital Encounter [facility] DEPART[facility] [address] [place] [id number] Victoriano Perales MD [address] [facility] [address] [place] [address] Discharge Disposition: Home or Self Care Social [...] on filedocumented in this encounter Care Teams Court Of Appeals Judge Relationship Specialty Start Date End Date Alesha Alamo PA [address] [place] [address] PCP - General 07/04/15 07/04/15 documented as of this encounter
--- OUTSIDE RECORDS SUMMARY | 2024-04-19 16:23 | XMS_ITS | Referral Summary ---
Author Organization [employer] Address [address] [place] [address] Care Team Providers Care Assessment Clinician Name Role Phone Carl Patton MD Primary Care Provider [phone] Encounters Date Type Department Care Team Description 03/22/2024 Outside Orders [facility] Central Scheduling 1 [place] [address] John Douglas MD Chronic kidney [...] the past 12 months, has t he [employer], gas, oil, or water [employer] threatened to shut off services in your [...] Do you speak a language other than Citizen Of [place] at [facility]? No 06/03/2023 Do you want help [...] - 249 mg/dL 06/04/2023 9:21 AM EST [facility] Cholesterol 235(H) 0 - 199 mg/dL 06/04/2023 9:21 AM EST [facility] Comment: 200 to 239 mg/dL = ??Moderate (borderline) >239 mg/dL ? = ??High HDL 55 >=40 mg/dL 06/04/2023 9:21 AM EST [facility] Comment: >=60 mg/dL = Desirable <40 mg/dL ??= Increased Risk All other components are listed individually or are calculations VLDL 23.4 5 - 40 mg/dL 06/04/2023 9:21 AM EST [facility] Cholesterol/HDL ratio 4.3(H) 0.0 - 3.2 06/04/2023 9:21 AM EST [facility] LDl/HDL Ratio 3 0 - 4 06/04/2023 9:21 AM EST [facility] RISK COMP 4 06/04/2023 9:21 AM [facility] LDL Cholesterol, Calculated 157(H) 0 - 99 mg/dL 06/04/2023 9:21 AM [facility] Blood Venipuncture / Unknown 06/04/2023 8:35 AM EST 06/04/2023 8:53 AM EST Matilde Welch MD LAB BLOOD ORDERABLES Sharyn bhakta Result Performing Organization Address [facility]/State/ZIP Co de Phone Number [facility] [address] [phone] from Last 3 Months or Most Recently Relevant to Health Maintenance Insurance BLUE CROSS/BLUE SHIELD Advance Directives For more information, please contact: [phone] * Full Code (Latest Code Status on File) Date Activated Date Inactivated Comments 06/06/2023 12:34 PM 06/07/2023 4:41 PM * Full Code Date Activated Date Inactivated Comments 06/03/2023 10:28 AM 06/06/2023 12:34 PM Care Teams Assessment Clinician Relationship Specialty Start Date End Date Carl Patton MD [address] [place] [address] PCP - General Family Medicine 06/03/23
--- OUTSIDE RECORDS SUMMARY | 2024-04-19 16:23 | XMS_ITS | Clinical Summary ---
Author Organization [employer] Address [address] [place] [address] Care Team Providers Care City Maintenance Manager Name Role Phone Carl Patton MD Primary Care Provider [phone] Allergies No known active allergies Medications lisinopriL [...] Department Care Team Description 03/22/2024 Outside Orders [facility] Central Scheduling 1 [place] [address] John Douglas MD Chronic kidney [...] the past 12 months, has t he [employer], gas, oil, or water [employer] threatened to shut off services in your [...] Do you speak a language other than Jamaican at [facility]? No 06/03/2023 Do you want [...] MD LAB BLOOD ORDERABLES Sharyn bhakta Result [facility] 1 [place] [address], [facility] [phone] from Last 3 Months or Most Recently Relevant to Health Maintenance Insurance [address] [place] [id number] BLUE CROSS/[employer]IELD Advance Directives For more information, please contact: [phone] * Full Code (Latest Code Status on File) Date Activated Date Inactivated Comments 06/06/2023 12:34 PM 06/07/2023 4:41 PM * Full Code Date Activated Date Inactivated Comments 06/03/2023 10:28 AM 06/06/2023 12:34 PM Care Teams City Maintenance Manager Relationship Specialty Start Date End Date Carl Patton MD [address] [place] [address] PCP - General Family Medicine 06/03/23
--- OUTSIDE RECORDS SUMMARY | 2024-04-19 16:23 | XMS_ITS | Encounter Summary ---
Author Organization [employer] Address [address] [facility] [facility] [place] [address] Care Team Providers Care Legal Arbitrator Name Role Phone Carl Patton MD Primary Care Provider [phone] Reason for Referral * CAT Scan (Routine) - Authorized Specialty Diagnoses / Procedures Referred By Contac t Referred To Contact Radiology Diagnoses Chronic kidney disease, unspecified CKD stage Procedures CTA abdomen & pelvis John Douglas MD 1 [place] [address] Phone: tel: Referral ID Status Reason Start Date Expiration Date V isits Requested Visits Authorized [id number] Authorized 03/22/2024 04/20/2024 1 1 Encounter Details Date Type Department Care Team (Late st Contact Info) Description 03/22/2024 Outside Orders [facility] Central Scheduling 1 [place] [address] John Douglas MD 1 [place] [id number] Chronic kidney disease, unspecified CKD stage (Primary [...] place to sleep or slept in a alf (including now)? No 06/04/2023 Utilities Answer Date [...] your living situation today? I have a [facility] place to live 06/03/2023 Think about [...] Do you speak a language other than [place] at [place]? No 06/03/2023 Do you [...] Primary documented in this encounter Care Teams Legal Arbitrator Relationship Specialty Start Date End Date Carl Patton MD [address] [place] [address] PCP - General Family Medicine 06/03/23 documented as of this encounter
--- OUTSIDE RECORDS SUMMARY | 2024-04-19 16:23 | XMS_ITS | Encounter Summary ---
Author Organization [facility] Address [address] [place] [id number] Care Team Providers Care Steam Box Hand Name Role Phone Provider, No Known Primary Care Provider [phone] Encounter Details Date Type Department Care Team (Late st Contact Info) Description 09/08/2015 7:00 AM EDT - 09/08/2015 1:50 PM EDT Hospital Encounter [facility] [address] [place] [address] Victoriano Perales MD [address] [address] Discharge Disposition: Home or Self Care Social [...] No Known - 09/08/2015 12:00 AM EDT [place] [address] OPERATIVE REPORT PATIENT NAME: ARJUN HALL ROOM NUMBER: [id number] VISIT NUMBER: [id number] DATE OF : 1965 DATE OF OPERATION: [...] allografting at C4-C5. SURGEON: Victoriano Perales MD RESOURCE TEACHER: John Bull PA-C ANESTHESIA: General endotracheal. ESTIMATED [...] anterior spine with cautery. Self-retaining retractor provided [id number] exposure. Distraction screws were utilized. The disk [...] Victoriano Perales MD* AMMON/mateo Voice Rec. ID #[id number] Original Voice Rec. ID #[id number] Doc ID #[id number] Revision Count: 0 cc: Victoriano Perales MD* DO NOT TEXT EDIT THIS LINE :PRODUCT SUPPORT TECHNICIAN:[id number]: Authenticated by VICTORIANO PERALES M.D. On 09/09/2015 [...] ? Released Date Time- 09/08/15 1439 ? Core Cleaner- SaloMDieudonne Procedure Note Bernard Borges MD - 09/09/2015 [...] Radiologist- BERNARD OBANDO Released Date Time- 09/08/15 1439 Core Cleaner- Lev us Victoriano Perales MD IMG FLUOROSCOPY ORDERABLES Fi nal Result * Converted Surgical Pathology (09/08/2015 10:20 AM EDT) CONVERTED (HISTORICAL) CASE TYPE Surgical Pathology [facility] CONVERTED (HISTORICAL) ACCESSION NUMBER [id number] [facility] CONVERTED (HISTORICAL) RESULT STATUS FINAL [facility] CONVERTED (HISTORICAL) SPECIMEN DESCRIPTION Intervertebral disc [facility] 09/08/2015 10:2 0 AM EDT 09/08/2015 10:20 AM EDT Narrative [facility] - 09/09/2015 5:54 PM EDT ? [facility] ? [address] [place] [address] ? SURGICAL PATHOLOGY REPORT ? Patient Name: HALL, ARJUN C. ? MR#: [id number] ? : 1965 ? Gender: M ? Ordering Physician: VICTORIANO PERALES ? Copy To: ? Location: 0101-4 ? Collected: 09/08/2015 ? Received: 09/08/2015 ? Reported: 09/09/2015 ? Clinical Diagnosis and History ? 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 ? Final Diagnosis ? Intervertebral disc left C4-5: ?Fibrocartilage from intervertebral disc. ? JFJ/mbc ? Amendments: ? Electronically Signed Out By ? Carl Rios M.D. ? Specimen(s) Received: ? Intervertebral disc [...] Victoriano Perales MD PATHOLOGY/CYTOLOGY ORDERABLES Final Result [facility]
[address] [place] [id number], * FL c arm during surgery (09/08/2015 [...] OBANDO ? Released Date Time- 09/08/151438 ? Core Cleaner- Lev Procedure Note Bernard Borges MD - [...] OBANDO Releasing Katharina OBANDO Released Date Time- 09/08/15 1792 Core Cleaner- Lev us Victoriano Perales MD IMG FLUOROSCOPY ORDERABLES Fi nal Result * SCANNED EKG (09/08/2015) [facility] Onbase ECG ORDERABLES Final Result * (ABNORMAL) CBC (No diff) (09/02/2015 8:50 AM EDT) WBC 5.79 3.50 - 10.80 K/[facility] RBC 3.81(L) 4.20 - 5.76 M/[facility] Hemoglobin 10.9(L) 13.1 - 17.5 g/dL [facility] Hematocrit 33.0(L) 38.9 - 50.9 % [facility] MCV 86.6 80.0 - 99.0 fL [facility] MCH 28.6 27.0 - 31.0 pg [facility] MCHC 33.0 32.0 - 36.0 g/dL [facility] RDW-CV 15.1(H) 11.3 - 14.5 % [facility] Platelets 548(H) 150 - 450 K/[facility] Blood specimen (specimen) 09/02/2015 8:50 AM EDT 09/02/2015 8:59 AM EDT [facility] - 09/02/2015 9:19 AM EDT Specimen Type : Blood Trino Shea MD LAB BLOOD ORDERABLES Final Re sult [facility]
[address] [place] [address], * MRSA screen (09/02/2015 8:47 AM EDT) Other 09/02/2015 8:47 AM EDT 09/02/2015 9:16 AM EDT [facility] - 09/04/2015 9:13 AM EDT Specimen Type : Screening Nares Specimen: Screening Nares Collected: 09/02/2015 08:47 EDT Status: Final ?Last Updated: 09/04/2015 09:13 EDT ?Culture Result (Final) ?No Methicillin Resistant Staph Aureus Isolated us Victoriano Perales MD MICROBIOLOGY - GENERAL ORDERA BLES Final Result [facility]
[address] [place] [address], documented in this encounter Visit Diagnoses Not on filedocumented in this encounter Care Teams Steam Box Hand Relationship Specialty Start Date End Date Provider, No Known [place] [id number] PCP - General 09/01/15 11/04/15 documented as of this encounter
--- OUTSIDE RECORDS SUMMARY | 2024-04-19 16:23 | XMS_ITS | Encounter Summary ---
Author Organization [employer] Address [address] [place] [address] Care Team Providers Care Addiction Nurse Name Role Phone Carl Patton MD Primary Care Provider [phone] Reason for Visit * Reason Onset Date Comments questions med 06/22/2023 Encounter Details Date Type Department Care Team (Late st Contact Info) Description 06/22/2023 Telephone [facility] Cardiology [address] [place] [address] [place] Romero MD [address] [place] [phone] questions med Social History Tobacco Use Types [...] Do you speak a language other than Lao at [place]? No 06/03/2023 Do you want help with [...] on: 06/22/2023 03:47 PM Modules accepted: Orders TECHNICIAN * Telephone Encounter - Mark Anthony Lyman MA - 06/22/2023 3:42 PM EST Phone call to patient. I have scheduled him a f/u appt to see Nick on Tuesday. Per Anna patient may switch to plavix 75 mg. Script will be sent. He verbalized understanding. TECHNICIAN * Telephone Encounter - Andria Berg - 06/22/2023 1:28 PM EST Mr Melton states he returning a missed call TECHNICIAN * Telephone Encounter - Mark Anthony Lyman MA - 06/22/2023 1:15 PM EST lvm for patient to return my call. TECHNICIAN * Telephone Encounter - Andria Berg - 06/22/2023 12:54 PM EST States he is having issues from His procedure done 06/06/23 at [facility] States he is having fatigue and chest pain Also states he stopped Brilinta on his own- and was asking about changing to Plavix TECHNICIAN documented in this encounter Plan of Treatment Not on file documented as of this encounter Visit Diagnoses Not on filedocumented in this encounter Care Teams Addiction Nurse Relationship Specialty Start Date End Date Carl Patton MD [address] [place] [address] PCP - General Family Medicine 06/03/23 documented as of this encounter
--- OUTSIDE RECORDS SUMMARY | 2024-04-19 16:23 | XMS_ITS | Encounter Summary ---
Author Organization [employer] Address [address] [place] [address] Care Team Providers Care Clinical Trial Manager Name Role Phone Carl Patton MD Primary Care Provider [phone] Reason for Visit * Reason Onset Date Comments Consult 07/22/2023 Encounter Details Date Type Department Care Team (Late st Contact Info) Description 07/22/2023 Telephone [facility] Cardiology [address] [facility] [address] [place] [address] [place] Romero MD [address] [facility] [address] [place] [id number] Consult Social History Tobacco Use Types Packs/Day [...] place to sleep or slept in a half-way (including now)? No 06/04/2023 Utilities Answer Date [...] Do you speak a language other than [place] Islander at [facility]? No 06/03/2023 Do you want [...] to discuss his ranexa and chest pain. RMATION SECURITY ENGINEER documented in this encounter Plan of Treatment Not on file documented as of this encounter Visit Diagnoses Not on filedocumented in this encounter Care Teams Clinical Trial Manager Relationship Specialty Start Date End Date Carl Patton MD [address] [place] [address] PCP - General Family Medicine 06/03/23 documented as of this encounter
--- OUTSIDE RECORDS SUMMARY | 2024-04-19 16:23 | XMS_ITS | Encounter Summary ---
Author Organization [facility] Address [address] [place] [address] Care Team Providers Care Composition Siding Worker Name Role Phone Noah Wagner MD Primary Care Provider [phone] Encounter Details Date Type Department Care Team (Late st Contact Info) Description 06/24/2015 5:53 AM EST - 06/24/2015 9:55 AM EST Hospital Encounter [place] [address] ICU [address] [place] [address] Victoriano Perales MD [address] [place] [address] Discharge Disposition: Home or Self Care Social [...] ? Released Date Time- 06/24/15 1718 ? Automation Machine Operator- N.D. Procedure Note Antionette Miranda PA - [...] Radiologist- BERNARD OBANDO Released Date Time- 06/24/15 7496 Automation Machine Operator- N.D. Victoriano Perales MD [facility] IR ORDERABLES Final Resul t * CT [...] ? Released Date Time- 06/24/15 1221 ? Automation Machine Operator- Kael Procedure Note Bernard Borges MD - [...] D- 06/24/2015 E- 06/24/2015 Reading Radiologist- BERNARD OBNADO Releasing Radiologist- BERNARD OBANDO Released Date Time- 06/24/15 1221 Automation Machine Operator- Karan. us Victoriano Perales MD IMG CT ORDERABLES Final Resul t documented in this encounter Visit Diagnoses Not on filedocumented in this encounter Care Teams Composition Siding Worker Relationship Specialty Start Date End Date Noah Wagner MD [address] [place] [address] PCP - General 06/24/15 06/25/15 documented as of this encounter
--- OUTSIDE RECORDS SUMMARY | 2024-04-19 16:23 | XMS_ITS | Encounter Summary ---
Author Organization [employer] [facility] [employer] Address [address] [place] [address] Care Team Providers Care Athletic Director Name Role Phone Carl Patton MD Primary Care Provider [phone] Encounter Details Date Type Department Care Team (Late st Contact Info) Description 06/24/2023 1:15 PM EST Office Visit [facility] Cardiology [address] [place] [address] [address] [place] [address] [place] [address] [place] [address] [address] [place] [id number] NSTEMI (non-ST elevated myocardial infarction) (HCC) (Primary [...] place to sleep or slept in a [place] [facility] facility (including now)? No 06/04/2023 Utilities Answer Date [...] speak a language other than Citizen [place] at [facility]? No 06/03/2023 Do you want help [...] ECG Routine NSTEMI (non-ST elevated myocardial infarction) ([facility]) Ordered: 06/23/2023 documented as of this encounter Visit Diagnoses Diagnosis NSTEMI (non-ST elevated myocardial infarction) (HCC)- Primary Acute myocardial infarction, subendocardial infarction, episode of care unspecified documented in this encounter Care Teams Athletic Director Relationship Specialty Start Date End Date Carl Patton MD [address] [place] [address] PCP - General Family Medicine 06/03/23 documented as of this encounter
--- OUTSIDE RECORDS SUMMARY | 2024-04-19 16:24 | XMS_ITS | Encounter Summary ---
Author Organization [employer] Address [address] [place] [address] Care Team Providers Care Public Health Policy Analyst Name Role Phone Stanislaw Martinez MD Primary Care Provider [phone] Encounter Details Date Type Department Care Team (Late st Contact Info) Description 12/30/2020 Transcribed Document [facility] Family Medicine [facility] [place] [address] ProviderLucy MD [address] [place] [address] Social History Tobacco Use Types Packs/Day Years Used Date Smoking Tobacco: Never Assessed Sex and Gender Information Value Date Recorded Sex Assigned at Not on file Legal Sex Male 5:20 PM CDT Gender Identity Not on file Sexual Orientation Not on file documented as of this encounter Miscellaneous Notes * Cerner Conversion Note - Lucy Scott MD - 12/30/2020 7:[address] [facility] [place] [address] МАРИНА HALL :1965 Visit Time:12/30/2020 Your Visit Summary Your Care Team Admitting Physician - DEBBY ROMERO MD-CAR Attending Physician - DEBBY ROMERO MD-CAR Primary Care Physician - STANISLAW MARTINEZ MD-[facility] Referring Physician - DEBBY ROMERO MD-CAR Your [...] in 2-4weeks Follow-Up Appointments Follow Up with DEBYB ROEMRO MD-CAR When Within 2 to 4 weeks Comments Call for follow up appointment Where: [address] [facility] [address] [place] [id number]- Medications What How Much When Instructions Next [...] cause a heart attack (myocardial infarction or RI). This condition may also be called coronary [...] these instructions at home: Medicines ??? Take srul-rya-lhonmgs and prescription medicines only as told by [...] provider. Document Revised: 01/19/2019 Document Reviewed: 01/09/2019 eInstruction by [employer] Patient Education ?? 2020 [employer]. What you need to know about coronavirus disease 2019 (COVID-19) Missing Image - the embedded image is not supported https://www.cdc.gov/coronavirus/2019-ncov/ HYPERLINK https://www.cdc.gov/coronavirus/2019-ncov/cases-in-us.html cases-in-us.html. How does COVID-19 spread? The virus that causes COVID-19 probably emerged from an animal source, but now it seems to be spreading from person to person. It???s important to note that shyhpr-pa-ssjtnx spread can happen on a continuum. Some [...] least 20 seconds. Use an alcohol-based hand oven roaster that contains at least 60% alcohol if [...] you are awake and alert. ??? Take hmvx-bab-ltzepda and prescription medicines only as told by [...] provider. Document Revised: 04/14/2018 Document Reviewed: 08/21/2016 eInstruction by [employer] Patient Education ?? 2020 [employer]. Transradial Angiogram A transradial angiogram is an [...] including vitamins, herbs, eye drops, creams, and umnz-mpd-ahecqxc medicines. ??? Any problems you or family [...] tells you to take them. ??? Taking krqu-cqv-otpcmqd medicines, vitamins, herbs, and supplements. Exams and [...] provider. Document Revised: 03/26/2019 Document Reviewed: 03/26/2019 [employer] Patient Education ?? 2020 eInstruction by [employer]. Radial Site Care This sheet gives [...] these instructions at home: Medicines ??? Take shct-twe-zgmbect and prescription medicines only as told by your health care provider. Insertion site care ??? Follow instructions from your health care provider about how to take care of your insertion site. Make sure you: ? Wash your hands with soap and water before you change your bandage (dressing). If soap and water are not available, use hand oven roaster. ? Change your dressing as told by [...] Reviewed: 06/07/2018 Elsevier Patient Education ?? 2020 [employer] Inc. Emergency Awareness and Preventative Care STROKE [...] Assistance with quitting is available by contacting 2-589-UYEKNOW. This is a free resource providing counseling, support, and referral. Or you may contact your personal physician. REGISTRAT-MAPI Suicide Prevention Lifeline: The National Suicide Prevention [...] given the opportunity to ask questions. Patient/Family Centered Specialist Name: Patient/Family Centered Specialist Signature: Relationship to Patient: Clinician/Hospital Family Centered Specialist Signature: Date: Electronically signed by Interface, [facility] Conversion Electronic Sensing Equipment Assembler Cerner at 08/31/2022 10:54 PM CDT documented in this encounter Plan of Treatment Not on file documented as of this encounter Visit Diagnoses Not on filedocumented in this encounter Care Teams Public Health Policy Analyst Relationship Specialty Start Date End Date Stanislaw Martinez MD [address] [place] [address] PCP - General Family Medicine 06/03/23 documented as of this encounter
--- OUTSIDE RECORDS SUMMARY | 2024-04-19 16:24 | XMS_ITS | Encounter Summary ---
Author Organization [employer] [facility] [employer] Address [address] [place] [address] Care Team Providers Care Museum Informatics Specialist Name Role Phone Carl Patton MD Primary Care Provider [phone] Encounter Details Date Type Department Care Team (Late st Contact Info) Description 12/30/2020 Transcribed Document [facility] Family Medicine [facility] [place], [place] [id number] ProviderLucy MD [address] [place] [address] Social History Tobacco Use Types Packs/Day Years [...] Patient Referral Reason Comment : Advance directive Irrigation District Manager Services Provided : Yes Irrigation District Manager Services Provided Comment : Living will Ministry Provided to : Patient, Family/Significant other Scientologist Preference : Other: No JACK ALFARO 12/30/2020 [...] Family/Significant other supported, Information provided Spiritual and Scientologist : Spiritual/Scientologist support provided JACK ALFARO 12/30/2020 12:50 EDT Electronically signed by Charlene [facility] Conversion Paper Tube Machine Operator Cerner at 08/31/2022 10:41 PM CDT documented in this encounter Plan of Treatment Not on file documented as of this encounter Visit Diagnoses Not on filedocumented in this encounter Care Teams Museum Informatics Specialist Relationship Specialty Start Date End Date Carl Patton MD [address] [place] [address] PCP - General Family Medicine 06/03/23 documented as of this encounter
--- OUTSIDE RECORDS SUMMARY | 2024-04-19 16:24 | XMS_ITS | Encounter Summary ---
Author Organization [employer] Address [address] [place] [address] Care Team Providers Care Residential Director Name Role Phone Stanislaw Martinez MD Primary Care Provider [phone] Encounter Details Date Type Department Care Team (Late st Contact Info) Description 07/06/2021 Transcribed Document [facility] [place] [address] ProviderLucy MD [address] [place] [address] Social History Tobacco Use Types Packs/Day Years Used Date Smoking Tobacco: Never Assessed Sex and Gender Information Value Date Recorded Sex Assigned at Not on file Legal Sex Male 5:20 PM CDT Gender Identity Not on file Sexual Orientation Not on file documented as of this encounter Miscellaneous Notes * Cerner Conversion Note - Lucy Scott MD - 07/06/2021 12:08 PM CRISIS WORKER [address] [place] [address] PERSON INFORMATION Name МАРИНА HALL Age 55 Years 1965 Sex Male Language Yemeni PCP STANISLAW MARTINEZ MD-[facility] Marital Status Single Med Service Emergency Medicine Acct# Arrival 01/12/2021 11:39:00 Visit Reason Chest pain; CP SINCE TUESDAY Acuity 2 - Emergent LOS 000 06:23 Depart Date: 01/12/21 06:02 PM Address: [address] [place] [address] [address] [place] [address] Comment: PROVIDER INFORMATION DIAGNOSIS PHYS DOC NOTES [...] When: STANISLAW MARTINEZ [address] [facility] [address] [place] [address] Business (1) Within 2 to 3 days Comment: Electronically signed by Srinivas Chang Conversion Inspector Of Weights And Measures Cerner at 08/31/2022 10:41 PM CDT documented in this encounter Plan of Treatment Not on file documented as of this encounter Visit Diagnoses Not on filedocumented in this encounter Care Teams Residential Director Relationship Specialty Start Date End Date Stanislaw Martinez MD [address] [place] [address] PCP - General Family Medicine 06/03/23 documented as of this encounter
--- OUTSIDE RECORDS SUMMARY | 2024-04-19 16:24 | XMS_ITS | Encounter Summary ---
Author Organization [facility] Address [address] [place] [address] Care Team Providers Care Drivability Technician Name Role Phone Noah Wagner MD Primary Care Provider [phone] Reason for Visit * Imaging (Routine) - Closed Specialty Diagnoses / Procedures Referred By Renee meza Referred To Contact Diagnoses Weight loss Procedures VAS US Mesenteric Artery Duplex [facility] [address] [place] [address] Phone: tel: fax: [facility] [address] [address] Phone: tel: fax: Referral ID Status Reason Start Date Expiration Date V isits Requested Visits Authorized [id number] Closed Perform Procedure 01/17/2024 07/18/2025 1 1 Encounter Details Date Type Department Care Team (Latest Contact Info) Description 01/30/2024 10:30 AM EDT - 01/30/2024 11:59 PM EDT Hospital Encounter [facility] [address] [place] [address] Discharge Disposition: Home or Self Care Social [...] Jair Smith MD on 01/31/2024 4:03 PM [facility] Saroj Chenopp CV VASCULAR PROCEDURES Sharyn l Result documented in this encounter Visit Diagnoses Not on filedocumented in this encounter Care Teams Drivability Technician Relationship Specialty Start Date End Date Noah Wagner MD [address] [place] [address] PCP - General 09/26/20 documented as of this encounter
--- OUTSIDE RECORDS SUMMARY | 2024-04-19 16:24 | XMS_ITS | Encounter Summary ---
Author Organization [employer] [facility] [employer] Address [facility] [place] [address] Care Team Providers Care Cotton Picking Machine Operator Name Role Phone Carl Patton MD Primary Care Provider [phone] Encounter Details Date Type Department Care Team (Late st Contact Info) Description 01/18/2021 Transcribed Document [facility] Cardiology [address] [facility] [address] [place] [address] [place] [address] [place] [address] [address] [place] [address] Social History Tobacco Use Types Packs/Day Years [...] 1. Normal study. 2. Ejection fraction 63%. /[id number] Helena Romero MD NMF/AQ / NMF / MODL /[id number] documented in this encounter Plan of Treatment Not on file documented as of this encounter Visit Diagnoses Not on filedocumented in this encounter Care Teams Cotton Picking Machine Operator Relationship Specialty Start Date End Date Carl Patton MD [address] [place] [address] PCP - General Family Medicine 06/03/23 documented as of this encounter
--- OUTSIDE RECORDS SUMMARY | 2024-04-19 16:24 | XMS_ITS | Encounter Summary ---
Author Organization [facility] Address [address] [place] [address] Care Team Providers Care Valve Mechanic Name Role Phone Noah Wagner MD Primary Care Provider [phone] Encounter Details Date Type Department Care Team [...] on filedocumented in this encounter Care Teams Valve Mechanic Relationship Specialty Start Date End Date Noah Wagner MD [address] [place] [address] PCP - General 09/26/20 documented as of this encounter
--- OUTSIDE RECORDS SUMMARY | 2024-04-19 16:24 | XMS_ITS | Encounter Summary ---
Author Organization [employer] Address [address] [place] [address] Care Team Providers Care Sawdust Drier Name Role Phone Carl Patton MD Primary Care Provider [phone] Encounter Details Date Type Department Care Team [...] place to sleep or slept in a residential (including now)? No 06/04/2023 Utilities Answer Date [...] speak a language other than Lao at [facility]? No 06/03/2023 Do you want help [...] on filedocumented in this encounter Care Teams Sawdust Drier Relationship Specialty Start Date End Date Carl Patton MD [address] [place] [address] PCP - General Family Medicine 06/03/23 documented as of this encounter
--- OUTSIDE RECORDS SUMMARY | 2024-04-19 16:24 | XMS_ITS | Encounter Summary ---
Author Organization [employer] [facility] [employer] Address [address] [place] [address] Care Team Providers Care Access Lead Name Role Phone Carl Patton MD Primary Care Provider [phone] Encounter Details Date Type Department Care Team (Late st Contact Info) Description 12/30/2020 Transcribed Document [facility] Family Medicine [facility] [place] [address] ProviderLucy MD [address] [place] [address] Social History Tobacco Use Types Packs/Day Years [...] on filedocumented in this encounter Care Teams Access Lead Relationship Specialty Start Date End Date Carl Patton MD [address] [place] [address] PCP - General Family Medicine 06/03/23 documented as of this encounter
--- OUTSIDE RECORDS SUMMARY | 2024-04-19 16:24 | XMS_ITS | Encounter Summary ---
Author Organization [facility] Address [facility] [place] [place] [address] Care Team Providers Care Corporate Travel Consultant Name Role Phone Unavailable Primary Care Provider Unavailabl e Encounter Details Date Type Department Care Team (Late st Contact Info) Description 12/30/2020 Historic Encounter [facility] [address] [place] [address] Provider, [facility] Historical Social History Tobacco Use Types Packs/Day [...] Procedure Name Priority Date/Time Associated Diagnosis Comments PLATELET COUNT Routine 12/30/2020 8:44 AM EDT documented in this encounter Results * (ABNORMAL) Platelet count (12/30/2020 8:44 AM EDT) Platelet Count 432(H) 163 - 369 K/uL 12/30/2020 12:57 PM EDT Blood 12/30/2020 8:44 AM EDT 12/30/2020 12:51 PM EDT [facility] Historical Provider LAB BLOOD ORDERABLES Fi nal Result [facility] [address] [phone] documented in this encounter Visit Diagnoses Not on filedocumented in this encounter
--- OUTSIDE RECORDS SUMMARY | 2024-04-19 16:24 | XMS_ITS | Encounter Summary ---
Author Organization [employer] Address [address] [place] [address] Care Team Providers Care Milling Machine Operator Gear Name Role Phone Carl Patton MD Primary Care Provider [phone] Encounter Details Date Type Department Care Team (Late st Contact Info) Description 01/13/2021 Transcribed Document [facility] [place] [address] ProviderLucy MD [address] [place] [address] Social History Tobacco Use Types Packs/Day Years [...] on filedocumented in this encounter Care Teams Milling Machine Operator Gear Relationship Specialty Start Date End Date Carl Patton MD [address] [place] [address] PCP - General Family Medicine 06/03/23 documented as of this encounter
--- OUTSIDE RECORDS SUMMARY | 2024-04-19 16:24 | XMS_ITS | Encounter Summary ---
Author Organization [employer] Address [address] [place] [address] Care Team Providers Care Shaker Flatwork Name Role Phone Carl Patton MD Primary Care Provider [phone] Encounter Details Date Type Department Care Team (Late st Contact Info) Description 01/12/2021 Transcribed Document [facility] [place], [place] [id number] ProviderLucy MD [address] [place] [address] Social History Tobacco Use Types Packs/Day Years [...] : 2 - Emergent Tracking Group : [facility] ED SONDRA BAEZA RN - 01/12/2021 11:56 [...] 11:59:15 EDT) Problems(Active) Allergic rhinitis (SNOMED CT :415133847 ) Name of Problem: Allergic rhinitis ; Recorder: COLLIN AVERY RN; Confirmation: Confirmed ; Classification: Patient Stated ; Code: 101740762 ; Contributor System: Sensopia ; Last Updated: 12/30/2020 8:57 EDT ; Life Cycle Date: 12/30/2020 ; Life Cycle Status: Active ; Vocabulary: SNOMED CT At risk for sleep apnea (IMO :92509885 ) Name of Problem: At risk for sleep apnea ; Recorder: SYSTEM, SYSTEM; Confirmation: Confirmed ; Classification: Medical ; Code: 40885990 ; Last Updated: 12/30/2020 9:12 EDT ; Life Cycle Date: 12/30/2020 ; Life Cycle Status: Active ; Vocabulary: IMO Chest pain (SNOMED CT :56808760 ) Name of Problem: Chest pain ; Recorder: COLLIN AVERY RN; Confirmation: Confirmed ; Classification: Patient Stated ; Code: 35013172 ; Contributor System: PowerChart ; Last Updated: 12/30/2020 9:00 EDT ; Life Cycle Date: 12/30/2020 ; Life Cycle Status: Active ; Vocabulary: SNOMED CT COPD, moderate (SNOMED CT :261959403 ) Name of Problem: COPD, moderate ; Recorder: NEERAJ HAYWARD RN; Confirmation: Confirmed ; Classification: Patient Stated ; Code: 545601690 ; Contributor System: PowerChart ; Last Updated: 09/05/2014 7:33 EDT ; Life Cycle Date: 09/05/2014 ; Life Cycle Status: Active ; Vocabulary: SNOMED CT Fatigue (SNOMED CT :809608048 ) Name of Problem: Fatigue ; Recorder: COLLIN AVERY RN; Confirmation: Confirmed ; Classification: Patient Stated ; Code: 298324582 ; Contributor System: PowerChart ; Last Updated: 12/30/2020 9:01 EDT ; Life Cycle Date: 12/30/2020 ; Life Cycle Status: Active ; Vocabulary: SNOMED CT GERD - Gastro-esophageal reflux disease (SNOMED CT :7836018848 ) Name of Problem: GERD - Gastro-esophageal reflux disease ; Recorder: COLLIN AVERY RN; Confirmation: Confirmed ; Classification: Patient Stated ; Code: 1036784057 ; Contributor System: PowerChart ; Last Updated: 12/30/2020 8:58 EDT ; Life Cycle Date: 12/30/2020 ; Life Cycle Status: Active ; Vocabulary: SNOMED CT HTN (hypertension) (SNOMED CT :5752576454 ) Name of Problem: HTN (hypertension) ; Recorder: FAUSTINO BARNETT MD; Confirmation: Confirmed ; Classification: Medical ; Code: 6656280994 ; Contributor System: PowerChart ; Last Updated: 08/27/2014 11:22 EDT ; Life Cycle Date: 08/27/2014 ; Life Cycle Status: Active ; Responsible Provider: FAUSTINO BARNETT MD; Vocabulary: SNOMED CT Shortness of breath (SNOMED CT :110057114 ) Name of Problem: Shortness of breath ; Recorder: COLLIN AVERY RN; Confirmation: Confirmed ; Classification: Patient Stated ; Code: 521083875 ; Contributor System: Sensopia ; Last Updated: 12/30/2020 9:01 EDT ; Life Cycle Date: 12/30/2020 ; Life Cycle Status: Active ; Vocabulary: SNOMED CT Smoker (SNOMED CT :815136267 ) Name of Problem: Smoker ; Recorder: COLLIN AVERY RN; Confirmation: Confirmed ; Classification: Patient Stated ; Code: 412372481 ; Contributor System: Sensopia ; Last Updated: 12/30/2020 8:57 EDT ; Life Cycle Date: 12/30/2020 ; Life Cycle Status: Active ; Vocabulary: SNOMED CT Diagnoses(Active) Chest pain Date: 01/12/2021 ; Diagnosis Type: Reason For Visit ; Confirmation: Complaint of ; Clinical Dx: Chest pain ; Classification: Medical ; Clinical Service: Non-Specified ; Code: PNED ; Probability: 0 ; Diagnosis Code: [id number] ED Height and Weight Height Source : Stated Height Entry Format : [place] Height, Feet : 5 ft(Converted to: 152 cm, 60 Inch) Height, Inches : 8 Inch(Converted to: 0 ft 8 Inch, 20.32 cm) Clinical Height : 172.72 cm Weight Source, ED : Critical estimated dosing weight Weight Entry Format : [place] Weight, Pounds : 165 lb Clinical Dosing Weight : 75 kg Body Surface Area (BSA) : 1.89 m2 Body Mass Index : 25.1 kg/m2 (HI) Dexter Body Weight (IBW) : 67.45 kg SONDRA BAEZA RN - 01/12/2021 11:56 EDT Pain Assessment [...] form. Electronically signed by Neto Chang Conversion Enlisted Aircrew/Aerial Observer/Gunner Cerner at 08/31/2022 10:40 PM CDT documented in this encounter Plan of Treatment Not on file documented as of this encounter Visit Diagnoses Not on filedocumented in this encounter Care Teams Shaker Flatwork Relationship Specialty Start Date End Date Carl Patton MD [address] [place] [address] PCP - General Family Medicine 06/03/23 documented as of this encounter
--- OUTSIDE RECORDS SUMMARY | 2024-04-19 16:24 | XMS_ITS | Encounter Summary ---
Author Organization [employer] Address [address] [place] [address] Care Team Providers Care Block Engraver Name Role Phone Carl Patton MD Primary Care Provider [phone] Encounter Details Date Type Department Care Team (Late st Contact Info) Description 12/30/2020 Transcribed Document [facility] [facility] [place] [address] ProviderLucy MD [address] [place] [address] Social History Tobacco Use Types Packs/Day Years [...] will JACK ALFARO - 12/30/2020 12:48 EDT Electronically signed by Neto Chang Conversion Mobile Lounge Driver Or Operator Cerner at 08/31/2022 10:43 PM CDT documented in this encounter Plan of Treatment Not on file documented as of this encounter Visit Diagnoses Not on filedocumented in this encounter Care Teams Block Engraver Relationship Specialty Start Date End Date Carl Patton MD [address] [place] [address] PCP - General Family Medicine 06/03/23 documented as of this encounter
--- OUTSIDE RECORDS SUMMARY | 2024-04-19 16:24 | XMS_ITS | Encounter Summary ---
Author Organization [facility] Address [address] [facility] [place] [address] Care Team Providers Care Automotive Parts Counter Person Name Role Phone Unavailable Primary Care Provider Unavailabl e Encounter Details Date Type Department Care Team (Late st Contact Info) Description 12/30/2020 Historic Encounter [address] [address] Provider, [facility] Historical Social History Tobacco Use Types [...] - 137 Second(s) 12/30/2020 7:16 PM EDT [facility] System Developer Associate Manager [id number] 12/30/2020 7:16 PM EDT [facility] Device SN [id number] 12/30/2020 7:16 PM EDT [facility] Blood 12/30/2020 3:16 PM EDT 12/30/2020 10:42 PM EDT Result [facility] Historical Provider POINT OF CARE TEST MARC MURPHY Final Result [facility] [address] [place] [address], [place] [phone] documented in this encounter Visit Diagnoses Not on filedocumented in this encounter
--- OUTSIDE RECORDS SUMMARY | 2024-04-19 16:24 | XMS_ITS | Encounter Summary ---
Author Organization [facility] [employer] Address [address] [place] [address] Care Team Providers Care Manager Application Name Role Phone Unavailable Primary Care Provider Unavailabl e Encounter Details Date Type Department Care Team (Late st Contact Info) Description 12/30/2020 Historic Encounter [address] [address] Provider, Jerilyn Historical Social History [...] - 146 mmol/L 12/30/2020 12:50 PM EDT [facility] Potassium POC 4.5 3.5 - 4.9 mmol/L 12/30/2020 12:50 PM EDT [facility] Chloride POC 103 98 - 109 mmol/L 12/30/2020 12:50 PM EDT [facility] CO2 POC 26.0 24.0 - 29.0 mmol/L 12/30/2020 12:50 PM EDT [facility] Anion Gap POC 16.0 10.0 - 20.0 mmol/L 12/30/2020 12:50 PM EDT [facility] Ca Ionized POC 1.26 1.12 - 1.32 mmol/L 12/30/2020 12:50 PM EDT [facility] Glucose POC 92 70 - 105 mg/dL 12/30/2020 12:50 PM EDT [facility] BUN POC 15 8 - 26 mg/dL 12/30/2020 12:50 PM EDT [facility] Creatinine POC 2.0(H) 0.6 - 1.3 mg/dL 12/30/2020 12:50 PM EDT [facility] eGFR 42(L) >=60 mL/min/1. 73m2 12/30/2020 8:05 PM EDT [facility] eGFR NonAfrican 35(L) >=60 mL/min/1. 73m2 12/30/2020 8:05 PM EDT [facility] Hemoglobin POC 13.6 12.0 - 17.0 Gram/dL 12/30/2020 12:50 PM EDT [facility] Hematocrit POC 40.0 38.0 - 51.0 % 12/30/2020 12:50 PM EDT [facility] Medical Examiner [id number] 12/30/2020 12:50 PM EDT [facility] Device SN [id number] 12/30/2020 12:50 PM EDT [facility] Blood 12/30/2020 8:50 AM EDT 12/30/2020 8:[address] [facility] Historical Provider POINT OF CARE TEST MARC MURPHY Final Result [facility] [address] [phone] documented in this encounter Visit Diagnoses Not on filedocumented in this encounter
--- OUTSIDE RECORDS SUMMARY | 2024-04-19 16:24 | XMS_ITS | Encounter Summary ---
Author Organization [employer] Address [address] [place] [address] Care Team Providers Care Cardiac Exercise Physiologist Name Role Phone Unavailable Primary Care Provider Unavailabl e Encounter Details Date Type Department Care Team (Late st Contact Info) Description 01/12/2021 Historic Encounter [facility] [address] [place] [address] Jennifer Rosario MD [address] [facility] [place] [address] [place] [id number] Social History Tobacco Use Types Packs/Day Years [...] 1:35 PM EDT CBC W/ AUTO DIFF ([facility]) Routine 01/12/2021 12:40 PM EDT AUTOMATED DIFFERENTIAL ([facility]) Routine 01/12/2021 12:40 PM EDT CMP COMPREHENSIVE METABOLIC PANEL ([facility]) Routine 01/12/2021 12:40 PM EDT TROPONIN I ULTRA ([facility]) Routine 01/12/2021 12:40 PM [...] ES Final Result * TROPONIN I ULTRA ([facility]) (01/12/2021 12:40 PM EDT) [...] 0 PM EDT 01/12/2021 4:47 PM EDT [facility] Historical Provider LAB BLOOD ORDERABLES Fi nal Result [facility] 1 [place] [address], [facility] [phone] * (ABNORMAL) CMP COMPREHENSIVE METABOLIC PANEL ([facility] DATA CONV) (01/12/2021 12:40 PM EDT) [...] 106 mg/dL 01/12/2021 5:09 PM EDT Comment: [employer] has become aware of sulfasalazine and sulfapyridine [...] Units/Lit er 01/12/2021 5:09 PM EDT Comment: [employer] has become aware of sulfasalazine and sulfapyridine [...] Units/Lit er 01/12/2021 5:09 PM EDT Comment: [employer] has become aware of sulfasalazine and sulfapyridine [...] 0 PM EDT 01/12/2021 4:47 PM EDT [facility] Historical Provider LAB BLOOD ORDERABLES Fi nal Result [facility] [address] [place] [address] * (ABNORMAL) CBC W/ AUTO DIFF ([facility] DATA CONV) (01/12/2021 12:40 PM EDT) [...] 0 PM EDT 01/12/2021 4:47 PM EDT [facility] Historical Provider LAB BLOOD ORDERABLES Fi nal Result [facility] [address] [phone] * (ABNORMAL) AUTOMATED DIFFERENTIAL ([facility] DATA CONV) (01/12/2021 12:40 PM EDT) Neut% 73.7(H) 34.0 - 71.0 % 01/12/2021 4:50 PM EDT Lymph% 11.8(L) 19.3 - 53.1 % 01/12/2021 4:50 PM EDT Harney% 7.3 3.0 - 9.0 % 01/12/2021 4:50 PM EDT Eos% 2.7 0.0 - 7.0 % 01/12/2021 4:50 PM EDT Baso% 0.7 0.0 - 1.5 % 01/12/2021 4:50 PM EDT IG% 3.80(H) 0.00 - 0.60 % 01/12/2021 4:50 PM EDT Neut# 13.29(H) 1.56 - 6.13 K/uL 01/12/2021 4:50 PM EDT Lymph# 2.13 1.00 - 3.90 x10(3)/uL 01/12/2021 4:50 PM EDT Harney# 1.32(H) 0.16 - 1.00 K/uL 01/12/2021 4:50 PM EDT Eos# 0.49 0.00 - 0.80 x10(3)/uL 01/12/2021 4:50 PM EDT Baso# 0.13 0.00 - 0.20 x10(3)/uL 01/12/2021 4:50 PM EDT IG# 0.69(H) 0.00 - 0.05 x10(3)/uL 01/12/2021 4:50 PM EDT Blood 01/12/2021 12:4 0 PM EDT 01/12/2021 4:47 PM EDT Narrative [facility] - 01/12/2021 4:50 PM EDT Added by Discern Expert [facility] Historical Provider LAB BLOOD ORDERABLES Fi nal Result [facility] [address] [place] [address] documented in this encounter Visit Diagnoses Not on filedocumented in this encounter
--- OUTSIDE RECORDS SUMMARY | 2024-04-19 16:24 | XMS_ITS | Clinical Summary ---
Author Organization [facility] Address [address] [place] [address] Care Team Providers Care [place] Leverman Name Role Phone Noah Wagner MD Primary Care Provider [phone] Encounters Date Type Department Care Team Description 01/30/2024 10:30 AM EDT - 01/30/2024 11:59 PM EDT Hospital Encounter [facility] [address] [place] [address] Discharge Disposition: Home or Self Care 01/30/2024 [...] [facility]-HIV Screening 1963 [facility]-Hepatitis C Screening 1963 [facility]-Infant/Child/Adol SDOH Screenings 1965 [facility]- SDOH Screenings 09/18/1981 [facility]-Adult SDOH Screenings 09/18/1981 CT Colonography 09/18/2008 Colonoscopy 09/18/2008 FIT-DNA 09/18/2008 FIT 09/18/2008 FOBT 09/18/2008 Sigmoidoscopy 09/18/2008 [facility]-Colorectal Cancer Screening 09/18/2008 [id number] Vaccine ( season) 2024 08/20/2020 [facility]-Influenza Vaccine [...] Last 3 Months Insurance KAREN Care Teams [place] Relationship Specialty Start Date End Date Noah Wagner MD [address] [place] [address] PCP - General 09/26/20
--- OUTSIDE RECORDS SUMMARY | 2024-04-19 16:24 | XMS_ITS | Encounter Summary ---
Author Organization [facility] [employer] Address [address] [place] [address] Care Team Providers Care Commissary Worker Name Role Phone Carl Patton MD Primary Care Provider [phone] Encounter Details Date Type Department Care Team (Late st Contact Info) Description 12/30/2020 Transcribed Document [facility] [place] [place] [facility] [place] [address] ProviderLucy MD [address] [place] [id number] Social History Tobacco Use Types Packs/Day Years Used Date Smoking Tobacco: Never Assessed Sex and Gender Information Value Date Recorded Sex Assigned at Not on file Legal Sex Male 5:20 PM CDT Gender Identity Not on file Sexual Orientation Not on file documented as of this encounter Miscellaneous Notes * Cerner Conversion Note - Lucy ProviderMD - 12/30/2020 7:09 PM CDT [facility] [place] [address] [place] [address] Visit Date/Time: 12/30/2020 19:09:58 МАРИНА HALL The above patient was seen in the hospital today and needs to be excused from work/school until Return to Work/School Date: 01/05/2021 Electronically signed by Charlene [facility] Conversion Teamcenter Solution Architect Cerner at 08/31/2022 10:41 PM CDT documented in this encounter Plan of Treatment Not on file documented as of this encounter Visit Diagnoses Not on filedocumented in this encounter Care Teams Commissary Worker Relationship Specialty Start Date End Date Carl Patton MD [address] [place] [address] PCP - General Family Medicine 06/03/23 documented as of this encounter
--- OUTSIDE RECORDS SUMMARY | 2024-04-19 16:24 | XMS_ITS | Encounter Summary ---
Author Organization [employer] Address [address] [place] [address] Care Team Providers Care Outdoor Education Teacher Name Role Phone Carl Patton MD Primary Care Provider [phone] Encounter Details Date Type Department Care Team (Late st Contact Info) Description 12/30/2020 Transcribed Document [facility] [place] [facility] [place], [place] [id number] ProviderLucy MD [address] [place] [address] Social History Tobacco Use Types Packs/Day Years Used Date Smoking Tobacco: Never Assessed Sex and Gender Information Value Date Recorded Sex Assigned at Not on file Legal Sex Male 5:20 PM CDT Gender Identity Not on file Sexual Orientation Not on file documented as of this encounter Miscellaneous Notes * Cerner Conversion Note - Lucy Scott MD - 12/30/2020 7:13 PM CDT Nursing Discharge Summary Entered On: 12/30/2020 19:13 EDT Performed On: 12/30/2020 19:13 EDT by ANTONIO VICTOR, cardiothoracic surgeon Documentation Discharge Date/Time : 12/30/2020 19:20 EDT [...] 12/30/2020 19:13 EDT Electronically signed by Charlene, [facility] Conversion Field Foreman Cerner at 08/31/2022 10:42 PM CDT documented in this encounter Plan of Treatment Not on file documented as of this encounter Visit Diagnoses Not on filedocumented in this encounter Care Teams Outdoor Education Teacher Relationship Specialty Start Date End Date Carl Patton MD [address] [place] [address] PCP - General Family Medicine 06/03/23 documented as of this encounter
--- OUTSIDE RECORDS SUMMARY | 2024-04-19 16:24 | XMS_ITS | Encounter Summary ---
Author Organization [facility] [employer] Address [address] [place] [address] Care Team Providers Care Fruit Tester Name Role Phone Carl Patton MD Primary Care Provider [phone] Encounter Details Date Type Department Care Team (Late st Contact Info) Description 07/06/2021 Transcribed Document [facility] Family [place] [facility] [place] [address] ProviderLucy MD [address] [place] [address] Social History Tobacco Use Types Packs/Day Years Used Date Smoking Tobacco: Never Assessed Sex and Gender Information Value Date Recorded Sex Assigned at Not on file Legal Sex Male 5:20 PM CDT Gender Identity Not on file Sexual Orientation Not on file documented as of this encounter Miscellaneous Notes * Cerner Conversion Note - Historical ProviderMD - 07/06/2021 12:08 PM CORE FINISHER Electronically signed by Charlene [facility] Conversion Crusher And Binder Operator Cerner at 08/31/2022 10:30 PM CDT documented in this encounter Plan of Treatment Not on file documented as of this encounter Visit Diagnoses Not on filedocumented in this encounter Care Teams Fruit Tester Relationship Specialty Start Date End Date Carl Patton MD [address] [place] [address] PCP - General Family Medicine 06/03/23 documented as of this encounter
--- OUTSIDE RECORDS SUMMARY | 2024-04-19 16:24 | XMS_ITS | Encounter Summary ---
Author Organization [employer] Address [facility] [place] [address] Care Team Providers Care Ride Mechanic Name Role Phone Carl Patton MD Primary Care Provider [phone] Encounter Details Date Type Department Care Team (Late st Contact Info) Description 12/30/2020 Transcribed Document [facility] [place] [facility] [address] ProviderLucy MD [address] [place] [id number] Social History Tobacco Use Types Packs/Day Years [...] Source : Measured Height Entry Format : [place] Height, Feet : 5 ft(Converted to: 152 cm, 60 Inch) Height, Inches : 8 Inch(Converted to: 0 ft 8 Inch, 20.32 cm) Clinical Height : 172.72 cm Weight Source : Standing scale Weight Entry Format : [place] Clinical Dosing Weight : 75 kg Weight, Pounds : 165 lb Weight, Ounces : 0 oz Body Surface Area (BSA) : 1.89 m2 Body Mass Index : 25.1 kg/m2 (HI) [place] Body Weight : 67 kg COLLIN AVERY [...] COLLIN AVERY RN - 12/30/2020 9:06 EDT [place] Suicide Severity Rating Scale (C-SSRS) CSSRS Past [...] Info Legal Guardian : No Support Person/Patient Clay Artist : No Want Family/Rep/Phys Notified of Admit : No Emergency Contact #1 : [place] Emergency Contact #1 Emergency Contact #1 Relationship : girlfriend Emergency Contact #2 : x Emergency Contact #2 Phone Number : x Emergency Contact #2 Relationship : x Primary Language : Marshallese Preferred Communication Mode : Verbal Communication Barrier : None Aba Tutor Needed : COLLIN Rousseau RN - 12/30/2020 [...] Sleep Apnea Risk Level Score : 5 COLLNI AVERY RN - 12/30/2020 9:06 EDT [place] [...] Scale Risk Level : 0-24 Low Risk Russell Fall Interventions : Adequate lighting, Assistive devices [...] on filedocumented in this encounter Care Teams Ride Mechanic Relationship Specialty Start Date End Date Carl Patton MD [address] [place] [address] PCP - General Family Medicine 06/03/23 documented as of this encounter
[2024-04-20 16:13] LABS: H. pylori Breath Test Negative (Negative)
[2024-04-24 03:36] LABS: F001-IgE Egg White <0.10 kU/L (Class 0); F002-IgE Milk <0.10 kU/L (Class 0); F003-IgE Codfish <0.10 kU/L (Class 0); F004-IgE Wheat <0.10 kU/L (Class 0); F010-IgE Sesame Seed <0.10 kU/L (Class 0); F013-IgE Peanut <0.10 kU/L (Class 0); F014-IgE Soybean <0.10 kU/L (Class 0); F024-IgE Shrimp <0.10 kU/L (Class 0); F256-IgE Walnut <0.10 kU/L (Class 0); F338-IgE Scallop <0.10 kU/L (Class 0)
== END 2024-04-19 23:59 | disposition home or self-care (01) ==
LOC: LAB 16:19
PROVIDERS: PCP Physician Assistant; Visit Provider Physician Assistant
DX: R11.2 Nausea with vomiting, unspecified (principal)
CPT/HCPCS: 36415; 83013; 86003; 86008

== ENCOUNTER 2024-06-07 13:18 | Day surgery (SDC) | payer BC, SELFPAY ==
--- NOTE | 2024-06-04 14:33 | SUR.PREOP ---
06/04/24- pre op call made and voicemail left
[2024-06-05 13:19] VITALS: BMI 21.1
[2024-06-07 13:38] VITALS: BP 141/72; PULSE 57; RESP 18; TEMP 36.6; O2SAT 98
[2024-06-07] MEDS: LACTATED RINGERS 1000ML 1,000 ML 50 ML IV (13:48)
--- NOTE | 2024-06-07 13:58 | P.PNANES_ITS ---
[facility] Disclaimer: The information contained in this section may have been updated after the patient was seen, as this information can be updated by other users. Medical History HTN (hypertension) Renal artery stenosis Chronic renal insufficiency, stage II (mild) Metatarsal fracture Fatigue SMOOTH (obstructive sleep apnea) COPD (chronic obstructive pulmonary disease) Pectus excavatum Right atrial enlargement Tobacco user HLD (hyperlipidemia) CAD (coronary artery disease) Surgical History History of neck surgery History of coronary artery stent placement H/O shoulder surgery Hx of knee surgery Family History Father Family history of myocardial infarction Social History (Updated 06/07/24 @ 13:45 by Lauren Jimenez RN) Smoking Status: Current every day smoker tobacco type: cigarettes packs per day: 1 second hand exposure: Yes alcohol intake: never substance use type: denies use current occupational status: employed Travel in the last 8 weeks: None household members: significant other housing: house current occupation: [employer] current occupational exposures/hazards: No caffeine: Yes Have you lived/traveled outside US in past 30 days?: No Contact w/someone who lives/traveled outside US past 30 days?: No Exposure to someone with infectious disease in past 14 days?: No Do you have a fever (greater than 100.4 F or 38 C)?: No Have you tested positive for COVID-19: Yes Exposed to someone with COVID-19 in past 14 days?: No Do you have a sore throat?: No Do you have a cough?: No Do you have any weakness?: No Are you experiencing any nausea/vomitting?: No Do you have any diarrhea?: No Are you experiencing any unusual bleeding?: No Do you have any muscle aches/pain?: No Do you have any abdominal pain?: No Are you experiencing loss of taste or smell?: No [facility] Anesthesia Checklist Patient Identification Patient Identification: Arm Band and Family Structural Data Admitted From: Home Planned Operative Procedure/s: EGD Consent for Planned Operative Procedure(s) Verified: Yes Verified Documents: Surgical Consent and History and Physical NPO Status Verified Time NPO: 00:00 Additional verifications Patient : No Anesthesia Reactions: No Hx Blood Transfusions: No Blood Transfusion Reaction: No Cephalosporin Allergy: No Previous Colonoscopy: No Airway Assessment Mallampati Score:: Class II C-Spine Mobility Assessed: Yes TMJ Mobility Assessed: Yes Dentition: Good Dentition Neurological Assessment Level of Consciousness: Awake, Alert, Appropriate and Follows Commands Hx Seizures: No Numbness or tingling in extremities: No Anesthesia Plan Anesthesia Risk discussed: Yes ASA Class: III Anesthesia Type: MAC Preoperative Comments Pre-Operative Comments: stents X5 since 2024. Stent in left kidney. Partial upper plate.
--- NOTE | 2024-06-07 14:53 | EXP.HP ---
History of Present Illness *Admission Date: 06/07/24 *Reason for visit:: Dysphagia/globus with retrosternal chest pressure and abnormal CAT scan *History of present illness: Mr. Melton is a 58-year-old gentleman who is here for diagnostic upper endoscopy. He has had throat burning, nausea, retrosternal chest pressure, dysphagia and globus sensation. The examination is deemed medically necessary for diagnostic upper endoscopy. The patient has been seen, interviewed and examined prior to the procedure by both myself and the anesthesia provider. [facility] Disclaimer: The information contained in this section may have been updated after the patient was seen, as this information can be updated by other users. Medical History HTN (hypertension) Renal artery stenosis Chronic renal insufficiency, stage II (mild) Metatarsal fracture Fatigue SMOOTH (obstructive sleep apnea) COPD (chronic obstructive pulmonary disease) Pectus excavatum Right atrial enlargement Tobacco user HLD (hyperlipidemia) CAD (coronary artery disease) Surgical History History of neck surgery History of coronary artery stent placement H/O shoulder surgery Hx of knee surgery Family History Father Family history of myocardial infarction Social History (Updated 06/07/24 @ 13:45 by Lauren Jimenez RN) Smoking Status: Current every day smoker tobacco type: cigarettes packs per day: 1 second hand exposure: Yes alcohol intake: never substance use type: denies use current occupational status: employed Travel in the last 8 weeks: None household members: significant other housing: house current occupation: [employer] current occupational exposures/hazards: No caffeine: Yes Have you lived/traveled outside US in past 30 days?: No Contact w/someone who lives/traveled outside US past 30 days?: No Exposure to someone with infectious disease in past 14 days?: No Do you have a fever (greater than 100.4 F or 38 C)?: No Have you tested positive for COVID-19: Yes Exposed to someone with COVID-19 in past 14 days?: No Do you have a sore throat?: No Do you have a cough?: No Do you have any weakness?: No Are you experiencing any nausea/vomitting?: No Do you have any diarrhea?: No Are you experiencing any unusual bleeding?: No Do you have any muscle aches/pain?: No Do you have any abdominal pain?: No Are you experiencing loss of taste or smell?: No Other Medical History Have you received the Flu Vaccine for this season: No Have you received the Pneumonia Vaccine: Yes Review of Systems Review of Systems Review of systems (narrative): Negative *Cardiovascular Comments: Negative *Gastrointestinal Comments: Negative *Genitourinary Comments: Negative *Musculoskeletal Comments: Negative *Neurologic Comments: Negative Meds Home Medications and Allergies Home Medications ?Medication ?Instructions ?Recorded ?Confirmed ?Type amlodipine 5 mg tablet 5 mg PO DAILY 03/24/24 06/05/24 History clopidogrel 75 mg tablet 75 mg PO DAILY 03/24/24 06/05/24 History metoprolol succinate 50 mg 50 mg PO DAILY 03/24/24 06/05/24 History tablet,extended release 24 hr pantoprazole 40 mg tablet,delayed 40 mg PO DAILY 03/24/24 06/05/24 History release nitroglycerin 0.4 mg sublingual 0.4 mg sublingual BID 05/02/24 06/07/24 History tablet vonoprazan 20 mg tablet (Voquezna) 20 mg PO DAILY 12 weeks #84 tabs 05/11/24 06/07/24 Rx irbesartan 150 mg tablet 150 mg PO DAILY #90 tabs 05/24/24 06/05/24 Rx New Prescriptions to Start Prescriptions: Allergies Allergy/AdvReac Type Severity Reaction Status Date / Time No Known Allergies Allergy Verified 06/07/24 13:35 Exam Data for Last 24 hours Vital signs and Labs for Last 24 Hours: Temp Pulse Resp BP Pulse Ox O2 Del Method 97.9 F 57 L 18 141/72 H 98 Room Air 06/07/24 13:38 06/07/24 13:38 06/07/24 13:38 06/07/24 13:38 06/07/24 13:38 06/07/24 13:38 I & O for Last 24 hours: Intake & Output 06/04/24 06/05/24 06/06/24 06/07/24 23:59 23:59 23:59 23:59 Weight 139 lb *Routine HEENT Exam Head: Present normocephalic Eye: Present EOMI and PERRL ENT: Present mucous membranes moist *Routine Neck Exam Neck: Present supple *Routine Respiratory Exam Respiratory: Present CTA bilaterally *Routine Cardiovascular Exam Cardiovascular: Present RRR *Routine Abdominal Exam Abdominal: Present soft and normoactive bowel sounds; Absent tenderness *Routine Rectal Exam Rectal:: deferred *Routine Genitalia Exam Genitalia:: deferred *Routine Extremities Exam Extremities: Absent cyanosis, clubbing or edema *Routine Skin Exam Skin: Present warm; Absent rash *Routine Neurological Exam Neurological: Present alert and oriented X3 Assessment and Plan *Assessment and plan (1) Dysphagia: Status: Acute Category: Medical Code(s): R13.10 - Dysphagia, unspecified (2) Globus sensation: Status: Acute Category: Medical Code(s): R09.A2 - Foreign body sensation, throat (3) Early satiety: Status: Acute Category: Medical Code(s): R68.81 - Early satiety (4) Non-cardiac chest pain: Status: Acute Category: Medical Code(s): R07.89 - Other chest pain Plan A/P: 1. Dysphagia with globus sensation, chest pressure (noncardiac) and weight loss with early satiety is the preprocedural diagnosis. The patient will be anesthetized/sedated using MAC sedation. The patient has been seen and examined. Cardiac and lung assessment prior to the examination is stable. Proceed with planned EGD
--- NOTE | 2024-06-07 14:56 | HMH.PROCNOTE ---
[facility] Procedure Note Date: 06/07/24 Time: 15:21 Procedure Note:: Upper Endoscopy Procedure Report: Esophagogastroduodenoscopy with cold biopsies and TTS balloon dilation Endoscopost: Prateek Vinson II, MD Referring Physician: Wojciech Patton MD Date of Procedure: June 07, 2024 Equipment: Olympus GIF 190 standard upper endoscope Sedation: MAC sedation Indications: Mr. Melton is a 58-year-old gentleman who is here for diagnostic upper endoscopy. He has had gastroenterology care recently in [place] and came to me in the office for second opinion. The patient had a acute KS in May 2023. He has had the onset of burning in the throat with nausea, retrosternal chest pressure, dysphagia/difficulty swallowing and globus sensation. He has lost weight. He has early satiety. He often feels the need to belch but cannot. He reports nausea. The patient was seen by GI in [place] (Fuad Ty MD) and underwent ware endoscopy. His upper endoscopy showed some chronic gastritis but no other findings. His colonoscopy was normal. 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 He was sent to vascular surgery?John Douglas and states that he had CT angiography at [facility]. The CAT scan showed wide patency of the celiac trunk and SMA. The BIPIN was also widely patent. There was some restenosis of the stented left renal artery. There was also circumferential thickening of the distal esophagus. He did have a phone conversation with Dr. Douglas who told him that he had no stenosis of the celiac artery. All of the findings on angiography did not support celiac artery compression syndrome often due to compression by the median arcuate ligament(MALS). The patient is miserable. He does have marked fullness and states that he can only eat about 5 bites before he is completely full. He has lost a moderate amount of weight. Procedure: Prior to the procedure, a history and physical exam was performed, and patient's medications and allergies were reviewed. The risks, benefits and alternatives of the sedation and procedure were discussed with the patient. All questions were answered and informed consent was obtained. The patient was brought to the procedure room. Patient identification and proposed procedure were verified by the physician and the nurse. The patient was placed in a left lateral decubitus position and the scope was passed under direct vision. Throughout the procedure, the patient's blood pressure, pulse, and oxygen saturations were monitored continuously. The upper GI endoscopy was accomplished without difficulty. The patient tolerated the procedure well. Findings: The scope was passed directly into the upper esophagus and advanced to the third portion of the duodenum. The post bulbar duodenum and duodenal bulb were normal with normal mucosa and conniventes. The scope was withdrawn through a normal duodenal bulb and pylorus into the stomach. There was prepyloric nodule edema with regenerative mucosa in this region suggestive of a prior erosion or prior prepyloric ulcer with healing. There was some chronic gastritis and biopsies were obtained from the lesser curvature and body of the stomach. With observation, there was blanching of segments of the proximal gastric mucosa suggestive of a vascular perfusion defect. Upon retroflexion, there was no hiatal hernia. The scope was then withdrawn into the esophagus. There was no evidence of any reflux esophagitis. There was some very focal whitish plaque in the distal esophagus and biopsies were taken to rule out Arianne. There were also very strong tertiary contractions and evidence of moderate to marked esophageal dysmotility. The entire esophagus was dilated to 18 mm with a TTS hydrostatic balloon. The remainder of the esophageal mucosa was normal. Impression: 1. Nonerosive GERD with moderate to marked esophageal dysmotility 2. Blanching of gastric mucosa along proximal greater curvature and posterior wall of stomach suggestive of vascular perfusion defect 3. Chronic gastritis Plan: I will discuss the findings with the patient and family. I do still feel there could be a vascular perfusion abnormality with arterial perfusion based upon the prior Doppler ultrasound and blanching of the gastric mucosa. I still feel that he should follow-up with Dr. John Douglas or vascular surgery in regard to this especially with his wasting, nausea and symptoms that could be related to gastric or mesenteric angina. I will follow-up the biopsies.
[2024-06-07 14:59] VITALS: O2SAT 100
[2024-06-07 15:21] VITALS: BP 122/62; PULSE 68; RESP 18; TEMP 36.3; O2SAT 96
[2024-06-07 15:31] VITALS: BP 107/54; PULSE 63; RESP 18; O2SAT 96
[2024-06-07 15:41] VITALS: BP 131/51; PULSE 67; RESP 18; O2SAT 97
[2024-06-07 15:51] VITALS: BP 152/72; PULSE 68; RESP 18; O2SAT 96
== END 2024-06-07 16:05 | disposition home or self-care (01) ==
PROVIDERS: PCP Family Medicine; Visit Provider Internal Medicine Gastroenterology
PROC: 0DJ08ZZ Inspection of Upper Intestinal Tract, Via Natural or Artificial Opening Endoscopic (ICD-10-PCS; CPT 43239; principal; 2024-06-07 15:00)
DX: R13.10 Dysphagia, unspecified (principal); R09.A2 Foreign body sensation, throat; R68.81 Early satiety; R07.89 Other chest pain; R63.4 Abnormal weight loss; K21.9 Gastro-esophageal reflux disease without esophagitis; K22.4 Dyskinesia of esophagus; K29.70 Gastritis, unspecified, without bleeding
CPT/HCPCS: 43239; 43249; C1726; J7120

== ENCOUNTER 2024-08-13 15:41 | Outpatient (CLI) | payer BC, SELFPAY ==
[2024-08-13 16:19] LABS: Basophils # 0.1 K/mm3 (0-0.2); Basophils % 1.1 % (0.1-2.0); Eosinophils # 0.5 K/mm3 (0.0-0.4); Eosinophils % 5.3 % (0.1-12.0); Hemoglobin 12.4 g/dL (14.1-18.0); Lymphocytes # 2.1 K/mm3 (0.7-4.5); Lymphocytes % 23.4 % (10-50); Mean Corpuscular HGB Conc 32.6 g/dL (31.8-35.4); Mean Corpuscular Hemoglobin 28.2 pg (27.0-31.2); Mean Corpuscular Volume 86.4 fl (80-94); Mean Platelet Volume 9.7 fl (7.4-10.4); Monocytes # 0.9 K/mm3 (0.1-1.0); Monocytes % 10.3 % (1.7-9.3); Neutrophils # 5.4 K/mm3 (1.8-7.8); Neutrophils % 59.9 % (37.0-80.0); Platelet Count 368 K/mm3 (142-424); Red Cell Distribution Width 14.3 % (11.5-17.5); White Blood Count 9.1 K/mm3 (4.8-10.8)
[2024-08-13 17:01] LABS: Albumin Level 4.2 g/dl (3.5-5.0); Chloride 99 mmol/L (98-107); Potassium 4.4 mmoL/L (3.5-5.1); Sodium 135 mmol/L (136-145)
[2024-08-13 17:04] LABS: Alanine Aminotransferase 17 U/L (12-78); Alkaline Phosphatase 58 U/L (38-126); Anion Gap 11.4 mEq/L (5-15); Aspartate Amino Transferase 23 U/L (17-59); Bilirubin,Direct 0.1 mg/dl (0.0-0.4); Bilirubin,Indirect 0.2 mg/dL (0.0-0.9); Bilirubin,Total 0.3 mg/dl (0.2-1.3); Bilirubin,Unconjugated 0.2 mg/dL (0.0-1.1); Blood Urea Nitrogen 14 mg/dl (9-20); Calcium 9.3 mg/dl (8.4-10.2); Carbon Dioxide 29 mmol/L (22.0-30.0); Cholesterol 196 mg/dl (140-200); Estimated Glomerular Filt Rate 52 ml/min (>60); GFR (African American) 63 ML/MIN (>60); Glucose 86 mg/dl (74-100); Total Protein,Serum 6.3 g/dl (6.3-8.2); Triglycerides 304 mg/dl (30-150); VLDL Cholesterol 61 mg/dL (0-40)
[2024-08-13 17:05] LABS: Chol/HDL Ratio 6.3 (1-3.5); HDL Cholesterol 31 mg/dl (40-60)
[2024-08-13 17:16] LABS: Direct LDL Cholesterol 104.05 mg/dL (100-129)
== END 2024-08-13 23:59 | disposition home or self-care (01) ==
LOC: LAB 15:42
PROVIDERS: PCP Family Medicine; Visit Provider Nurse Practitioner
DX: I25.118 Atherosclerotic heart disease of native coronary artery with other forms of angina pectoris (principal); I10 Essential (primary) hypertension; E78.49 Other hyperlipidemia
CPT/HCPCS: 36415; 80048; 80061; 80076; 85025

== ENCOUNTER 2024-09-10 10:55 | Outpatient (CLI) | payer BC, SELFPAY ==
--- NOTE | 2024-09-10 10:58 | FL_ITS ---
FINAL REPORT CLINICAL HISTORY: OROPHARYNGEAL DYSPHAGIA 34.11mgy 5:09 fluoro time FINDINGS: MODIFIED BARIUM SWALLOW History: Dysphagia. FINDINGS: Fluoroscopy was provided for the speech pathologist to evaluate the swallowing mechanism. The patient was given several different consistencies of barium while the swallow was visualized fluoroscopically. The report of the speech pathologist should be consulted prior to making dietary decisions. Fluoro time: 5 minutes 9 seconds Radiation exposure in Reference air Kerma: 34.11 mGy. IMPRESSION: Modified barium swallow under fluoroscopic guidance. Please see the report of the speech pathologist for more detail. Reviewed, Interpreted and Dictated by John Hayes MD Transcribed by ISAÍAS Cedeno Authenticated and . [facility]
[2024-09-10] MEDS: BARIUM SULFATE(E-Z-AC);750ML BOTTLE 750 ML PO (11:40)
--- NOTE | 2024-09-10 15:46 | HMH.SLMBS2 ---
Speech & Language Evaluation Speech/Lang Modified Barium Swallow Start: 09/10/24 15:30 Freq: once Status: Complete Protocol: Document 09/10/24 15:30 [facility] (Rec: 09/10/24 15:46 [facility] laptop) MINER HELPER Evaluation Information MINER HELPER Evaluation Information Date of Evaluation: 09/10/24 Time of Evaluation: 11:00 Evaluation Type Initial Certification Reason for Referral oropharyngeal dysphagia per MD order Does Patient Qualify for Service No Qualify/Failure Comment Based on clinical observations made throughout instrumental assessment and pt interview, further skilled speech therapy services are not warranted at this time d/t adequate mastication and manipulation of bolus and safe/efficient oropharyngeal swallow. Pt would benefit from ENT consult d/t burning sensation in throat and consistent globus sensation. MBS Recommendations Plan Pt/Guardian verbally ack understanding Yes of dx/prognosis/goals Diet Dietary Recommendations Regular,Thin Liquids SL Swallow Guidelines Alt bite w/sip thru meal, Standard Aspiration Prec.,Eat at slow rate,Reflux precautions Treatment/Strategies Strategy/Precaution Recommended Sitting Upright (90 deg), Double Swallow,Small Bites and Sips,Alternate Liquids/Solids Referral/Other Recommended Referrals ENT Consult Comment Pt would benefit from ENT consult d/t burning sensation in throat and globus sensation . Pt has been seen by GI and was found to have GERD. MINER HELPER Patient History Section MINER HELPER Patient History Primary Medical History Pt stated PMHx included CAD, and has had heart surgery for stent placement. Pt also stated he has had neck surgery . No upper respiratory infections or pneumonias recently. Pt stated he has seasonal allergies. Pt was seen by GI and was found to have GERD. Does Patient have Reflux or GERD? Yes Does Patient Experience Coughing or No Choking Episodes? Does Patient Avoid Certain Food Textures Yes /Consistencies? Food Textures/Consistencies Comment Pt avoids hot temperatures Does Patient Utilize Compensatory No Strategies During Meals? Has Patient Experienced Significant Yes Weight Loss? Does Pt have Hx of Recurrent Pneumonias No or Respiratory Infections? Has Patient Noticed Change in Vocal No Quality? Mod Barium Swallow Study Patient Orientation Patient Orientation Person,Place,Time,Situation Oral Expression Ability No Impairment Ability to Follow Directions Excellent Is Patient able to Perform Volitional Yes Throat Clear? Is Patient able to Perform Volitional Yes Cough? Is Patient able to Manage Secretions Yes Independently? Mod Barium Swallow Set Up Radiologist Saroj Putnam Patient Presentation: Awake,Alert,Appropriate, Follows Commands Bolus Consistencies Trialed: Thin Liquids,Pudding,Puree, Mechanical Soft,Regular,Mixed, Pill (Barium Tablet) MBSS Observations Consistency & Strategy Trial Regular Penetration/Aspiration Scale 1 PAS Amount Neither Pharyngeal Residual 0-9% Mechanical Soft Penetration/Aspiration Scale 1 PAS Amount Neither Pharyngeal Residual 0-9% Puree Penetration/Aspiration Scale 1 PAS Amount Neither Pharyngeal Residual 0-9% Pudding Penetration/Aspiration Scale 1 PAS Amount Neither Pharyngeal Residual 0-9% Thin Penetration/Aspiration Scale 1 PAS Amount Neither Pharyngeal Residual 0-9% Mod Barium Swallow Impressions Oral Phase Summary & Impressions Oral Phase: Impression No Impairment (WFL) Oral Phase: Labial Closure No Impairment (WFL) Oral Phase: Bolus Formation Pooling L/R No Impairment (WFL) Oral Phase: Bolus Formation Under Tongue No Impairment (WFL) Oral Phase: Bolus Formation Scattered No Impairment (WFL) Loss Oral Phase: Mastication Rotary Chew No Impairment (WFL) Oral Phase: Mastication Munching No Impairment (WFL) Oral Phase: Mastication Lateralization No Impairment (WFL) Oral Phase: Lingual Movement No Impairment (WFL) Oral Phase: Residue Clearing No Impairment (WFL) Oral Phase: Summary No impairment of oral phase of swallow. Pharyngeal Phase Summary & Impressions Pharyngeal Phase: Impression Minimal Impairment Pharyngeal Phase: A/P Lingual Propulsion Minimal Impairment Spills Pharyngeal Phase: Swallow Response Delay No Impairment (WFL) Pharyngeal Phase: Base of Tongue No Impairment (WFL) Pharyngeal Phase: Epiglottic Coverage No Impairment (WFL) Pharyngeal Phase: Laryngeal Elevation No Impairment (WFL) Pharyngeal Phase: Vallecular Retention Minimal Impairment Clearing Pharyngeal Phase: Pharyngeal Wall Minimal Impairment Residue Clearing Pharyngeal Phase: Piriform Sinus Minimal Impairment Retention Pharyngeal Phase: Summary Minimal impairment of pharyngeal phase of swallow. No aspiration/penetration observed on any consistency throughout study. Pt was observed to have x1 A/P lingual propulsion spill during mixed consistency, which safely cleared into esophagus. Pt was observed to have minimal diffuse oropharynx residue during mechanical soft and regular trials, which was cleared with double swallow. Aspiration Aspiration? No Silent Aspiration? No MINER HELPER MBSS Goals Education Instructions provided MINER HELPER discussed clinical observations made throughout instrumental assessment, diet recommendations, and compensatory strategies/ aspiration precautions with pt who expressed understanding . Patient/Caregiver Able to Recall Able to recall/restate Information Reinforcement needed No PHYSICIAN CERTIFICATION: I certify the specified therapy services for Arjun Melton are required, authorized, and reviewed every 30 days.
== END 2024-09-10 23:59 | disposition home or self-care (01) ==
LOC: RAD 10:56
PROVIDERS: PCP Family Medicine; Visit Provider Family Medicine
DX: R13.12 Dysphagia, oropharyngeal phase (principal)
CPT/HCPCS: 74230; 92611

== ENCOUNTER 2024-10-16 15:11 | Emergency (ER) | payer BC, SELFPAY ==
--- NOTE | 2024-10-16 15:12 | ED_ITS ---
<Statement entered by Elodia Silva MD - 10/16/24 18:05> I was consulted by the MINA, and we discussed the complexity of the problems being addressed. I approved the treatment and management plan for this patient's care in the emergency department, thus performing a substantive portion of the medical decision making. Elodia Silva MD, SEAN, FACEP Discharge Plan Disposition Patient Disposition: Home, Self-Care Condition: Good Prescriptions Prescriptions: New sulfamethoxazole-trimethoprim [Bactrim DS] 800-160 mg tablet 1 tab PO BID 5 Days Qty: 10 0RF tamsulosin 0.4 mg capsule 0.4 mg PO HS Qty: 30 0RF No Action nitroglycerin 0.4 mg tablet, sublingual 0.4 mg sublingual Q5-15M PRN Patient Comments: DISSOLVE ONE TABLET UNDER THE TONGUE EVERY 5 MINUTES NEEDED FOR CHEST PAIN. DO NOT EXCEED A TOTAL OF 3 DOSES IN 15 MINUTES Rx Instructions: DISSOLVE ONE TABLET UNDER THE TONGUE EVERY 5 MINUTES NEEDED FOR CHEST PAIN. DO NOT EXCEED A TOTAL OF 3 DOSES IN 15 MINUTES sucralfate 1 gram tablet 1 g PO ONCE chlordiazepoxide-clidinium 5-2.5 mg capsule 1 cap PO ONCE irbesartan 150 mg tablet 150 mg PO DAILY Qty: 90 1RF Patient Comments: TAKE 1 TABLET BY MOUTH ONCE DAILY clopidogrel 75 mg tablet See Rx Instructions .ROUTE .COMPLEX Qty: 90 3RF Dose Instruction: TAKE 1 TABLET BY MOUTH ONCE DAILY FOR PLATELET INHIBITOR Rx Instructions: TAKE 1 TABLET BY MOUTH ONCE DAILY FOR PLATELET INHIBITOR pantoprazole 40 mg tablet,delayed release (DR/EC) See Rx Instructions .ROUTE .COMPLEX Qty: 90 1RF Dose Instruction: Take 1 tablet by mouth once daily Rx Instructions: Take 1 tablet by mouth once daily metoprolol succinate 50 mg tablet extended release 24 hr 50 mg PO DAILY Patient Comments: TAKE 1 TABLET BY MOUTH ONCE DAILY amlodipine 5 mg tablet 5 mg PO DAILY Patient Comments: TAKE 1 TABLET BY MOUTH ONCE DAILY Referrals Follow up/Referrals: Dorota Patton MD [Primary Care Provider, Medical] - See instructions Carl Hood MD [Staff Physician, Urology] - See instructions Activity Restrictions/Add. Instructions Additional Instructions/Restrictions: I have sent in an antibiotic to your pharmacy. Please take it till its gone. Please follow-up with your PCP this week for recheck. I have also referred you to urology for prostate. I have added a new medication to help with your urinary frequency. He take it once a day at bedtime. If you have any persistent new or worsening signs or symptoms follow-up with Dr. Patton or return to the ER as needed. Clinical Impressions Clinical Impression: Acute right flank pain, Cystitis Instructions Patient Instructions: DI for Urinary Tract Infection (UTI), DI for Urinary Tract Infection in Children Print Language Print Language: Upper Sorbian Discharge ED Provider: Elodia Silva General Adult HPI General Chief complaint: Urogenital-Male Stated complaint: Possible Kidney Stone Time Seen by Provider: 10/16/24 15:12 History of Present Illness HPI narrative: Patient presents for evaluation of acute right flank pain pain. Patient states that he was at work when he suddenly began developing right flank pain. It has persisted since then constant with no aggravating or relieving factors. He reports no hematuria but reports he is having increasing urinary frequency. He denies any fever chills hemoptysis hematochezia melena nausea vomit diarrhea history of trauma history of back pain history of previous kidney stones. Related Data Home Medications ?Medication ?Instructions ?Recorded ?Confirmed amlodipine 5 mg tablet 5 mg PO DAILY 03/24/2408/13 metoprolol succinate 50 mg 50 mg PO DAILY 03/24/24 tablet,extended release 24 hr chlordiazepoxide-clidinium 5 1 cap PO ONCE 08/13/24 mg-2.5 mg capsule nitroglycerin 0.4 mg sublingual 0.4 mg sublingual Q5-1 5M PRN 08/13/24 08/13/24 tablet sucralfate 1 gram tablet 1 g PO ONCE 08/13/24 5 Previous Rx's ?Medication ?Instructions ?Recorded irbesartan 150 mg tablet 150 mg PO DAILY #90 tabs 02/07 clopidogrel 75 mg tablet See Rx Instructions .Route 0 07/04/24 .COMPLEX #90 tabs pantoprazole 40 mg tablet,delayed See Rx Instructions .Route 09/24/24 release .COMPLEX #90 tabs sulfamethoxazole 800 1 tab PO BID 5 days #10 tabs 10/16/24 mg-trimethoprim 160 mg tablet (Bactrim DS) tamsulosin 0.4 mg capsule 0.4 mg PO HS #30 caps Allergies Allergy/AdvReac Type Severity Reaction Status Date / Time No Known Allergies Allergy Verified 08/13/24 15:24 [facility] Disclaimer: The information contained in this section may have been updated after the patient was seen, as this information can be updated by other users. Medical History HTN (hypertension) Renal artery stenosis Chronic renal insufficiency, stage II (mild) Metatarsal fracture Fatigue SMOOTH (obstructive sleep apnea) COPD (chronic obstructive pulmonary disease) Pectus excavatum Right atrial enlargement Tobacco user HLD (hyperlipidemia) CAD (coronary artery disease) Surgical History History of neck surgery History of coronary artery stent placement H/O shoulder surgery Hx of knee surgery Family History Father Family history of myocardial infarction Social History Smoking Status: Current every day smoker tobacco type: cigarettes packs per day: 1 second hand exposure: Yes alcohol intake: never substance use type: denies use current occupational status: employed Travel in the last 8 weeks?: None household members: significant other housing: house current occupation: [employer] current occupational exposures/hazards: No caffeine: Yes Have you lived/traveled outside [place] in past 30 days?: No Contact w/someone who lives/traveled outside US past 30 days?: No Exposure to someone with infectious disease in past 14 days?: No Do you have a fever (greater than 100.4 F or 38 C)?: No Have you tested positive for COVID-19?: No Exposed to someone with COVID-19 in past 14 days?: No Do you have a sore throat?: No Do you have a cough?: No Do you have any weakness?: No Do you have any diarrhea?: No Are you experiencing any unusual bleeding?: No Do you have any muscle aches/pain?: No Do you have any abdominal pain?: No Are you experiencing loss of taste or smell?: No Other Medical History Have you received the Flu Vaccine for this season: No Have you received the Pneumonia Vaccine: Yes ROS Obtained: Yes Systems reviewed as appropriate & no additional complaints except as documented Physical Exam General General appearance: alert and in no apparent distress Respiratory Respiratory exam: Present normal lung sounds bilaterally Cardiovascular Cardiovascular exam: Present regular rate Neurological Exam Neurological exam: Present alert and oriented X3 Medical Decision Making Medical Records Medical records reviewed: Yes I reviewed the patient's medical records. Screening: Per USPSTF and CDC recommendations, given the prevalence of disease in our region, it is our hospital?s policy to screen for HIV and viral Hepatitis for all patients aged 18 and over and those with ongoing risk factors. [place] Inquiry Pt receiving controlled substance: No Vital Signs: 10/16/24 15:28 10/16/24 16:12 Temperature 98.4 F Temperature Source Oral Pulse Rate 89 Pulse Rate [Right Radial] 90 Respiratory Rate 16 18 Blood Pressure 145/68 H Blood Pressure [Right Arm] 143/74 H Blood Pressure Mean [Right Arm] 97 Blood Pressure Source [Right Arm] Automatic Cuff Blood Pressure Position [Right Arm] Sitting 02 Sat by Pulse Oximetry 98 98 Oxygen Delivery Method Room Air Room Air Lab Data Lab results reviewed: Yes I reviewed the patient's lab results. Lab Results 10/16/24 15:17: Urine Color Yellow, Urine Appearance Clear, Urine pH 6.0, Ur Specific [place] <= 1.005, Urine Protein Negative, Urine Glucose (UA) Negative, Urine Ketones Negative, Urine Blood Negative, Urine Nitrate Negative, Urine Bilirubin Negative, Urine Urobilinogen 0.2, Ur Leukocyte Esterase 2+ A, Urine RBC None, Urine WBC 5-10, Ur Squamous Epith Cells 3-5, Urine Bacteria Trace 10/16/24 15:25: WBC 9.1, RBC 4.97, Hgb 13.7 L, Hct 41.5 L, MCV 83.5, MCH 27.6, MCHC 33.0, RDW 13.2, Plt Count 361, MPV 9.8, Neut % (Auto) 69.0, Lymph % (Auto) 18.9, Kemper % (Auto) 6.6, Eos % (Auto) 4.1, Baso % (Auto) 1.1, Neut # (Auto) 6.3, Lymph # (Auto) 1.7, Kemper # (Auto) 0.6, Eos # (Auto) 0.4, Baso # (Auto) 0.1, S odium 134 L, Potassium 3.8, Chloride 102, Carbon Dioxide 24, Anion Gap 11.8, BUN 18, Creatinine 1.90 H, Estimated Creat Clear 37, Estimated GFR 36 L, Est GFR ( Amer) 44 L, Glucose 99, Calcium 8.9, Total Bilirubin 0.2, AST 19, ALT 10 L, Alkaline Phosphatase 59, Total Protein 6.9, Albumin 4.2, Globulin 2.7, Albumin/Globulin Ratio 1.6, PSA Screen 1.4, Procalcitonin 0.075, HCV Ab RODOLFO w/Rflx PCR Qn Negative, HIV Ag/Ab Combo Qual Negative 10/16/24 15:25 10/16/24 15:25 Orders (Tests/Meds): ED MEDICATIONS Generic Name Dose Route Start Last Admin Trade Name Freq PRN Reason Stop Dose Admin Trimethoprim/Sulfamethoxazole 1 each 10/16/24 17:09 10/16/24 17:13 Sulfa/Trimethoprim 1 Tablet PO 10/16/24 17:10 1 each ONCE ONE Administration Discontinued Medications Generic Name Dose Route Start Last Admin Trade Name Freq PRN Reason Stop Dose Admin Acetaminophen 1,000 mg 10/16/24 15:25 10/16/24 15:33 Acetaminophen 500mg Tab PO 10/16/24 15:26 1,000 mg ONCE ONE Administration Sodium Chloride 1,000 mls @ 999 mls/hr 10/16/24 15:25 10/16/24 15:33 Sod Chlor 0.9% 1000ml Bag IV 10/16/24 16:25 999 mls/hr .Q1H1M ONE Administration Iopamidol 75 ml 10/16/24 15:55 10/16/24 15:56 Iopamidol-370 (76%);100ml Bottle IV 10/16/24 15:56 75 ml ONCE ONE Administration Ketorolac Tromethamine 15 mg 10/16/24 15:25 10/16/24 15:33 Ketorolac 30mg/Ml Vial IV 10/16/24 15:26 15 mg ONCE ONE Administration Ondansetron HCl 4 mg 10/16/24 15:25 10/16/24 15:33 Ondansetron 4mg/2ml Vial IV 10/16/24 15:26 4 mg ONCE ONE Administration Sodium Chloride 10 ml 10/16/24 15:55 10/16/24 15:56 Sodium Chloride 0.9% 10ml Syr (Rad Only) IV 10/16/24 15:56 10 ml ONCE ONE Administration Tamsulosin HCl 0.4 mg 10/16/24 15:26 10/16/24 15:33 Tamsulosin 0.4mg Capsule PO 10/16/24 15:27 0.4 mg ONCE ONE Administration ORDERS Category Date Time Status CT abdomen pelvis w con Stat Cat Scan 10/16/24 15:25 Completed CBC w/Auto Diff [Complete Blood Count Auto Diff] Stat Lab 10/16/24 15:25 Completed CMP [Comprehensive Metabolic Panel] Stat Lab 10/16/24 15:25 Completed HIV Combo Stat Lab 10/16/24 15:25 Completed Hepatitis C Ab Qual. W/ RFX Stat Lab 10/16/24 15:25 Completed PSA-Screen [Prostate Specific Ag Screen] Stat Lab 10/16/24 15:25 Completed Procalcitonin Stat Lab 10/16/24 15:25 Completed UA [Urinalysis and Microscopic] Stat Lab 10/16/24 15:17 Completed Urine Culture Stat Micro 10/16/24 15:17 Received Medical Decision Narrative: In summary patient is a 59-year-old male who presents to the emergency department for evaluation of acute right flank pain. Patient is hemodynamically stable upon arrival, afebrile. Physical exam is remarkable for no reproducible flank pain on palpation however he has CVA tenderness to percussion on the right negative on the left. Abdomen soft nontender no rebound or guarding no rigidity normal bowel sounds.. Differential diagnosis includes ureterolithiasis versus kidney stone versus discogenic back pain possibly etc. Initial workup will be conducted with hematologic labs urinalysis CT scan abdomen pelvis with contrast. Initial interventions include crystalloid bolus Toradol Tylenol Zofran. Initial workup reviewed by me and his hematologic labs significant for white count of 9.1 hemoglobin hematocrit 13.7 and 41.5 respectively sodium 134 creatinine of 1.9 GFR of 36 ALT of 10 and the remainder of his hematologic labs are nonactionable. Urinalysis is negative for blood protein nitrites and 2+ leukocyte Estrace and microscopic exam shows no red blood cells 5-10 white cells 3-5 squamous epithelial cells trace bacteria. My informal interpretation of his CT scan abdomen pelvis shows no evidence of stone or acute abdominal process however there is long segment colonic wall thickening the patient has no history of diarrhea, he does have a thickened bladder wall and enlarged prostate with calcifications but no hydronephrosis. Please see final read for formal radiology interpretation.. Upon repeat evaluation patient reported improvement after initial intervention. Given this patient is appropriate for discharge with prescription for Bactrim with first dose given here, prescription for tamsulosin referral to urology for further workup of BPH and bladder outlet obstruction and recommended to follow back up with his PCP within 48 hours for his increased creatinine. If he has any persistent new or worsening signs or symptoms patient to follow-up sooner with his PCP return to the ER as needed. Critical Care Critical Care Time Critical Care Time: No
--- OUTSIDE RECORDS SUMMARY | 2024-10-16 15:17 | XMS_ITS | Data Portability ---
Author Organization [facility] TERESA Ventura Address [address] [place] [address] Assessment No assessment recorded. Plan of Treatment Reminders Order Date Submit Date Provider Last Modified By Organization Details Last Modified Time Details Appointments None record ed. Lab None record ed. Referral None record ed. Procedures None record ed. Surgeries None record ed. Imaging None record ed. Medication Orders None record ed. Patient TargetsNo targets recorded. Patient InstructionsNo instructions recorded. Reason for Referral None Reported. Medical Equipment None Reported. Vitals None Recorded Social History None recorded. Functional Status None recorded. Mental Status None recorded. Family History Nothing Reported. Medical History No medical history recorded. Past Encounters Encounter ID Performer Location Encounter Start Date Encounter Closed Date Diagnosis/Indication Diagnosis SNOMED-CT Code Diagnosis ICD10 Code Diagnosis Note [id number] ОЛЕГ RODRIGUEZ [facility] [address] [place] [id number] 09/20/2018 11:04:24 09/20/2018 16:26:54 Health Concerns Section Related Observation LastModified by Organization Detai ls LastModified Time None Recorded Concern Status LastModified by Organization Details LastModified Time None Recorded Advance Directives Directive None Recorded Payers Insurance Date Sequence Insurance Name Policy Number Policy Spencer Covered Member ID Spencer Member ID Guarantor Name 06/10/2023 1 [place] [id number] Arjun Melton [id number] Arjun Melton 09/20/2018 [facility] [employer] (BA) Arjun Melton [id number] Arjun Melton
--- NOTE | 2024-10-16 15:25 | CT_ITS ---
FINAL REPORT TECHNIQUE: Thin section axial images are obtained through the abdomen and pelvis after intravenous contrast. Reconstruction images were obtained from the axial data. Exam was performed using dose reduction techniques. This study was performed with techniques to keep radiation doses as low as reasonably achievable (ALARA). Individualized dose reduction techniques using automated exposure control or adjustment of mA and/or kV according to the patient's size were employed. CLINICAL HISTORY: Acute right flank pain COMPARISON: None FINDINGS: LUNG BASES: Lung bases are clear. Heart size is normal. LIVER: Homogeneous. No focal lesion. GALLBLADDER/BILIARY SYSTEM: Gallbladder is present. No gallstones. No biliary dilatation. SPLEEN: Unremarkable. PANCREAS: Unremarkable. ADRENALS: There is a right adrenal nodule, measuring 18 mm in size. The left adrenal gland is unremarkable. KIDNEYS/URETERS/BLADDER: No hydronephrosis, renal mass, or renal stone. There is wall thickening of the bladder, that may represent cystitis. GI TRACT: There is wall thickening of the distal esophagus, and esophagitis is not excluded. No small bowel obstruction or dilatation. Normal appendix. There is long segment colonic wall thickening, that may represent mild colitis. PELVIC ORGANS: The prostate is normal for age. LYMPH NODES/RETROPERITONEUM/MESENTERY: No lymphadenopathy. No abdominal aortic aneurysm. ABDOMINAL WALL: The abdominal wall is intact. FREE FLUID: No ascites. BONES: No acute osseous abnormality. IMPRESSION: There is long segment colonic wall thickening, that may represent mild colitis, would correlate with history of diarrhea. There is wall thickening of the distal esophagus, and esophagitis is not excluded. There is wall thickening of the bladder, that may represent cystitis. Reviewed, Interpreted and Dictated by Jennifer Rosario MD Transcribed by Lesa Espinoza Authenticated and [facility]
[2024-10-16 15:26] VITALS: BMI 21.2
[2024-10-16 15:28] VITALS: BP 143/74; PULSE 90; RESP 16; TEMP 36.9; O2SAT 98; BMI 21.2
[2024-10-16 15:31] LABS: Microscopic, Urine URINE MICROSCOPIC (MICROSCOPIC)
[2024-10-16 15:32] LABS: Appearance,Urine CLEAR (Clear); Bilirubin,Urine Negative (Negative); Blood, Urine Negative (Negative); Color,Urine YELLOW (Yellow); Glucose,Urine (UA) Negative (Negative); Ketones,Urine Negative (Negative); Leukocyte Esterase,Urine 2+ (Negative); Nitrate,Urine Negative (Negative); Protein,Urine Negative (Negative); Specific Gravity, Urine <= 1.005 (1.005-1.030); Urobilinogen,Urine 0.2 EU/dl (0.2)
[2024-10-16] MEDS: TAMSULOSIN 0.4MG CAPSULE 0.4 MG PO (15:33)
[2024-10-16] MEDS: ACETAMINOPHEN 500MG TAB 1000 MG PO (15:33)
[2024-10-16] MEDS: KETOROLAC 30MG/ML VIAL 15 MG IV (15:33)
[2024-10-16] MEDS: 0.9 % SODIUM CHLORIDE 1000ML 1,000 ML 999 ML IV (15:33)
[2024-10-16] MEDS: ONDANSETRON 4MG/2ML VIAL 4 MG IV (15:33)
[2024-10-16 15:34] LABS: Basophils # 0.1 K/mm3 (0-0.2); Basophils % 1.1 % (0.1-2.0); Eosinophils # 0.4 Kmm3 (0.0-0.4); Eosinophils % 4.1 % (0.1-12.0); Hematocrit 41.5 % (42.0-52.0); Hemoglobin 13.7 g/dL (14.1-18.0); Immature Granulocytes # 0.03 10^3uL; Immature Granulocytes % 0.3 %; Lymphocytes # 1.7 K/mm3 (0.7-4.5); Lymphocytes % 18.9 % (10-50); Mean Corpuscular Hemoglobin 27.6 pg (27.0-31.2); Mean Corpuscular Volume 83.5 fl (80-94); Mean Platelet Volume 9.8 fl (7.4-10.4); Monocytes # 0.6 K/mm3 (0.1-1.0); Monocytes % 6.6 % (1.7-9.3); Neutrophils # 6.3 K/mm3 (1.8-7.8); Nucleated Red Blood Cells # 0 10^3/uL; Nucleated Red Blood Cells % 0 %; Platelet Count 361 K/mm3 (142-424); Red Blood Count 4.97 M/mm3 (4.60-6.20); Red Cell Distribution Width 13.2 % (11.5-17.5); White Blood Count 9.1 K/mm3 (4.8-10.8)
[2024-10-16 15:40] LABS: Albumin Level 4.2 g/dl (3.5-5.0); Chloride 102 mmol/L (98-107); Potassium 3.8 mmoL/L (3.5-5.1); Sodium 134 mmol/L (136-145)
[2024-10-16 15:42] LABS: Bacteria,Urine Trace /lpf
[2024-10-16 15:43] LABS: Alanine Aminotransferase 10 U/L (12-78); Albumin/Globulin Ratio 1.6 (1.1-1.8); Alkaline Phosphatase 59 U/L (38-126); Anion Gap 11.8 mEq/L (5-15); Aspartate Amino Transferase 19 U/L (17-59); Bilirubin,Total 0.2 mg/dl (0.2-1.3); Blood Urea Nitrogen 18 mg/dl (9-20); Carbon Dioxide 24 mmol/L (22.0-30.0); Creatinine Clearance Estimated 37 mL/min (50-200); Estimated Glomerular Filt Rate 36 ml/min (>60); GFR (African American) 44 ML/MIN (>60); Globulin 2.7 g/dL (1.3-3.2); Total Protein,Serum 6.9 g/dl (6.3-8.2)
[2024-10-16 15:44] LABS: Calcium 8.9 mg/dl (8.4-10.2); Glucose 99 mg/dl (74-100)
[2024-10-16] MEDS: IOPAMIDOL-370 (76%);100ML BOTTLE 75 ML IV (15:56)
[2024-10-16] MEDS: SODIUM CHLORIDE 0.9% 10ML SYR (RAD ONLY) 10 ML IV (15:56)
[2024-10-16 16:05] LABS: Procalcitonin 0.075 ng/mL (0.0-2.0)
[2024-10-16 16:12] VITALS: BP 145/68; PULSE 89; RESP 18; O2SAT 98
[2024-10-16 16:47] LABS: Prostate Specific Ag Screen 1.4 ng/ml (0.0-4.0)
[2024-10-16 17:01] LABS: HIV Combo NEGATIVE (Negative)
[2024-10-16 17:09] LABS: Hepatitis C Ab Qual. W/ RFX NEGATIVE (Negative)
[2024-10-16] MEDS: SULFA/TRIMETHOPRIM 1 TABLET 1 EACH PO (17:13)
[2024-10-16 17:14] VITALS: BP 145/68; PULSE 89; RESP 18; TEMP 36.9; O2SAT 98
== END 2024-10-16 17:27 | disposition home or self-care (01) ==
PROVIDERS: Physician Assistant; Emergency Provider Student in an Organized Health Care Education/Training Program; PCP Family Medicine
DX: R10.11 Right upper quadrant pain (principal); N30.00 Acute cystitis without hematuria; I10 Essential (primary) hypertension; K21.9 Gastro-esophageal reflux disease without esophagitis; E78.5 Hyperlipidemia, unspecified; G47.33 Obstructive sleep apnea (adult) (pediatric); F17.210 Nicotine dependence, cigarettes, uncomplicated
CPT/HCPCS: 74177; 80053; 80074; 81001; 84145; 85025; 87086; 87389; 96361; 96374; 96375; 99285; G0103; J1885; J2405; J7030; Q9967

== ENCOUNTER 2024-11-02 09:31 | Outpatient (CLI) | payer BC, SELFPAY ==
[2024-11-02 15:22] LABS: Coronavirus 19, PCR Not Detected (NotDetected); Human Rhinovirus Not Detected (NotDetected); Influenza A, PCR Not Detected (NotDetected); Influenza B, PCR Not Detected (NotDetected); Respiratory Syncytial Virus Not Detected (NotDetected)
--- OUTSIDE RECORDS SUMMARY | 2024-11-05 09:45 | XMS_ITS | Clinical Summary ---
Author Organization [facility] Address [address] [place], [place] [address] Phone CareEverywhereSuppor Care Team Providers Care Germination Worker Name Role Phone Noah Wagner Primary Care Provider [phone] Allergies No known active allergies Medications desipramine [...] OPT OUT NO COPAY NB Care Teams Germination Worker Relationship Specialty Start Date End Date Noah Wagner[address] [address] PCP - General Family Medicine 04/07/20
--- OUTSIDE RECORDS SUMMARY | 2024-11-05 09:46 | XMS_ITS | Clinical Summary ---
Author Organization Healthcare Address [address] [place] [address] Care Team Providers Care City Carrier Assistant Name Role Phone Noah Wagner MD Primary Care Provider [phone] Social History Tobacco Use Types Packs/Day Years Used Date Smoking Tobacco: Never Assessed Sex and Gender Information Value Date Recorded Sex Assigned at Not on file Legal Sex Male 8:26 PM EDT Gender Identity Not on file Sexual Orientation Not on file Plan of Treatment Upcoming Encounters Date Type Department Care Team (Late st Contact Info) Description 12/04/2024 9:50 AM EDT Consult [facility] [address] [place] [address] Bhupinder Ardon MD [address] [place] [address] Health Maintenance Due Date Last Done Comments [facility]-Depression Screening 1963 [facility]-HIV Screening 1963 [facility]-Hepatitis C Screening 1965 [facility]-Infant/Child/Adol SDOH Screenings 1965 [facility]- SDOH Screenings 09/18/1981 [facility]-Adult SDOH Screenings 09/18/1981 CT Colonography 09/18/2008 Colonoscopy 09/18/2008 FIT-DNA 09/18/2008 FIT 09/18/2008 FOBT 09/18/2008 Sigmoidoscopy 09/18/2008 [facility]-Colorectal Cancer Screening 09/18/2008 [id number] Vaccine ( season) 2024 08/20/2020 [facility]-Influenza Vaccine [...] complete this topic Insurance [employer] Care Teams City Carrier Assistant Relationship Specialty Start Date End Date Noah Wagner MD [address] [place] [address] [address] [place] [address] PCP - General 09/26/20
== END 2024-11-02 23:59 | disposition home or self-care (01) ==
LOC: LAB.DROPOF 11-05 09:31
PROVIDERS: Visit Provider Nurse Practitioner Family
DX: R05.9 Cough, unspecified (principal)
CPT/HCPCS: 87631

== ENCOUNTER 2024-11-05 04:43 | Inpatient (IN) | payer BC, SELFPAY ==
--- OUTSIDE RECORDS SUMMARY | 2024-07-30 11:15 | XMS_ITS ---
Author Organization [facility] Address [address] [facility] [address] [facility] [address] [place] [id number] Care Team Providers Care Ceo Ziff Davis Name Role Phone Elodia Patton Primary Care Provider Allergies Allergen (clinical drug ingredient) Drug/Non Drug Allergy documented on EMR Reaction Allergy Type Onset Date Status hydroxyzine hydrOXYzine Unknown Drug Allergy Act alok Results Component Value Reference Range Notes CBC Fingerstick (in house) Reviewed date:07/31/2024 10:05:54 AM Interpretation: Performing Lab: Notes/Report: wbc 6.7 3.5 - 10 lym 28.2% 15 - 50 mid 7.8% 2 - 15 gran 64.0% 35 - 80 rbc 4.82 3.5 - 5.5 hgb 13.7 11.5 - 16.5 hct 40.7 35 - 55 mcv 84.4 75 - 100 mch 28.4 25 - 35 mchc 33.7 31 - 38 plat 369 100 - 400 P-Alpha Gal, Galactose-Alpha -1,3-Galactose (Alpha-Gal) IgE Reviewed date:08/08/2024 05:14:55 PM Interpretation:Normal Performing Lab: Notes/Report: Test performed by [facility] [address] [place], [place] [address] [place] , [place] [address] Marcus Gunderson MD, Assayer Helper CLIA: [id number] Allergen, Food, Alpha Galactose (Alpha-Gal) IgE <0.1 <0.10-0.34 kU/L Allergy Footnotes Reviewed date:08/08/2024 05:14:55 PM Interpretation:Normal Performing Lab: Notes/Report: Test performed by [facility] [address] [place], [place] [address] [place] , [place] [address] Marcus Gunderson MD, Assayer Helper CLIA: [id number] Allergy Footnotes SEE COMMENT Reference Ranges and Clinical Implications of Specific IgE Class 0 <0.10 kU/L No significant level detected Class 1 0.10-0.34 kU/L Clinical relevance undetermined Class 2 0.35-0.69 kU/L Low level, ongoing sensitization Class 3 0.70-3.49 kU/L Moderate level, stronger ongoing sensitization Class 4 3.50-17.49 kU/L High level of sensitization Class 5 17.50-49.99 kU/L Very high level of sensitization Class 6 >=50.00 kU/L Very high level of sensitization REASON FOR VISIT acid reflux Medications Medication SIG (Take, Route, Frequency, Duration) Notes Start Date End Date Status Isosorbide Mononitrate ER 60 MG 1 tablet in the morning Orally Once a day Not-Taking Plavix 75 MG 1 tablet Orally Once a day for 30 day(s) Active amLODIPine Besylate 5 MG 1 tablet Orally Once a day for 90 days Active Metoprolol Succinate ER 50 MG 1/2 tab Active Sucralfate 1 GM 2 Orally Twice a day for 30 days 07/30/2024 Active Iberogast - as directed Orally Active Irbesartan 150 MG 1 tablet Orally Once a day for 30 day(s) Active Nitroglycerin 0.4 MG 1 tab(s) sublingual ly every 5 minutes Active Voquezna 20 MG 1 tablet Orally Once a day for 30 day(s) Active Align - as directed Orally A ctive Librax 5-2.5 MG 1 capsule before cortney ls Orally Three times a day for 30 days 07/30/2024 Active Problems Problem Type SNOMED Code ICD Code Onset Dates Problem Status W/U Status Risk Notes Problem Dysphagia (62325259) Dysphagia (R13.10) Active confirmed Problem Dyspepsia (099894320) Dyspepsia (K30) Active confirmed Vital Signs Blood pressure systolic 142 mm Hg 07/31/19 25 Blood pressure diastolic 70 mm Hg 025 Heart Rate 65 /min 07/30/2024 Height 68.75 in 07/30/2024 Weight 137.2 lbs 07/30/2024 BMI 20.41 kg/m2 07/30/2024 Encounters Encounter Location Date Provider Diagnosis [facility] [address] [place], [place] [id number] 07/30/2024 Elodia Patton Weight loss R63.4 ; Dysphagia R13.10 and Dyspepsia K30 Assessments Encounter Date Diagnosis (ICD Code) Assessment Notes Treatment Notes Treatment Clinical Notes Section Notes 07/30/2024 Weight loss (ICD-10 - R63.4) 07/30/2024 Dysphagia (ICD-10 - R13.10) 07/30/2024 Dyspepsia (ICD-10 - K30) Plan Of Treatment Medication Medication Name Sig Start Date Stop Date Notes Sucralfate 1 GM 2 Orally Twice a day for 30 days 5 Librax 5-2.5 MG 1 capsule before cortney ls Orally Three times a day for 30 days 07/30/2024 Next Appt Details Follow Up: 3 Weeks, Reason: Progress Notes * МАРИНА HALLDOB: [birth year] (59 yo M)Acc No.[id number]:07/30/2024 Progress Notes Patient: МАРИНА WALKER Provider: Elodia Patton M.D. :1965 A ge:58 Y S ex:Male Date:07/30/2024 Address:[address] [place] [address] [id number] Subjective: * Chief Complaints: * 1 . Acid reflux. * HPI: G astroenterology: The pt states he started last night with acid reflux and vomiting. Pt states he threw up about 2 am and again when he got up. Pt states he has not been able to eat very much. 58 year old male presents with c/o Abdominal Pain. c/o Acid Reflux. c/o Nausea. c/o Vomiting. Denies : Diarrhea. D enies : Fever. D enies : Blood in Stool. D enies : melena. Past history reviewed regarding the persistant rash. Recent GI history reviewed. He does not give a history of meat intolerance, but I would like to r/o AlphaGal. * ROS: D ERMATOLOGY: no R ceci. n o H ria. G ASTROENTEROLOGY: no N ausea. n o V omiting. n o D iarrhea.? U ROLOGY: no D ifficulty urinating. n o B lood in urine. * Medical History: M I 06/03/2023. * Surgical History: C 4-C5 Neck Fusion 2016, Neck- [facility] 12/31/2019. * Hospitalization/Major Diagno stic Procedure: M I 06/03/2023. * Family History: F ather: , diagnosed with Heart Disease. M other: alive, diagnosed with Hypertension. P aternal Grand Father: . P aternal Grand Mother: . M aternal Grand Father: , diagnosed with Stroke. M aternal Grand Mother: . 2 brother(s) , 1 sister(s) - healthy. 1 daughter(s) - healthy. . * Social History: C URRENT TOBACCO USE: Yes . M arital Status: Single. * Medications: T aking Voquezna 20 MG Tablet 1 tablet Orally Once a day , Taking Align - Capsule as directed Orally , Taking Iberogast - Capsule as directed Orally , Taking Irbesartan 150 MG Tablet 1 tablet Orally Once a day , Taking Plavix 75 MG Tablet 1 tablet Orally Once a day , Taking amLODIPine Besylate 5 MG Tablet 1 tablet Orally Once a day , Taking Metoprolol Succinate ER 50 MG Tablet Extended Release 24 Hour 1/2 tab , Taking Nitroglycerin 0.4 MG Tablet Sublingual 1 tab(s) sublingually every 5 minutes , Not-Taking Isosorbide Mononitrate ER 60 MG Tablet Extended Release 24 Hour 1 tablet in the morning Orally Once a day , Medication List reviewed and reconciled with the patient * Allergies: h ydrOXYzine: Side Effects. Objective: * Vitals: W t:137.2, Temp:98.2, BP:142/70, HR:65, Nurse:KAROLINA, Ht: 68.75, BMI:20.41. * Examination: G eneral Examination: General Appearance: N AD. HEENT: u nremarkable. Oral cavity: n o lesions, mucosa moist and WNL, no erythema. Neck: s upple, no lymphadenopathy. Chest: n ormal shape and expansion. Heart: R SR. Lungs: c lear to auscultation. Abdomen: s oft , nontender , no organomegaly or masses, surgical scar , hyperactive BS. Neurologic Exam: I ntact, gait normal. Skin: n ormal, no rash. Peripheral pulses: n ormal (2+) bilaterally. Extremities: n o leg edema. Assessment: * Assessment: 1. W eight loss - R63.4 (Primary) 2 . D ysphagia - R13.10 3 . D yspepsia - K30 Plan: * Treatment: Value Reference Range w bc 6.7 3.5 - 10 * l ym 28.2% 15 - 50 * m id 7.8% 2 - 15 * g ran 64.0% 35 - 80 * r bc 4.82 3.5 - 5.5 * h gb 13.7 11.5 - 16.5 * h ct 40.7 35 - 55 * m cv 84.4 75 - 100 * m ch 28.4 25 - 35 * m chc 33.7 31 - 38 * p lat 369 100 - 400 * Maryana Castro 07/30/2024 4:1 6:15 PM > 1+ Provider reviewed results while patient in office. 2.?Dysphagia?LAB: P-Alpha Gal, Fxuuebsbc-Apgbk-7,3-Galactose (Alpha-Gal) IgE (Collection Date & Time - 07/30/2024 03:10 PM)?Normal* Value Reference Range G mzuwixsf-Tmxnh-4,3-Galactose (Alpha-Gal) IgE <0.1 <0.10-0.34 - kU/L * Maryana Castro 08/08/2024 5:1 4:16 PM >Patient informed of normal results. ?LAB: CBC Fingerstick (in house) (Collection Date & Time - 07/30/2024)* Value Reference Range w bc 6.7 3.5 - 10 * l ym 28.2% 15 - 50 * m id 7.8% 2 - 15 * g ran 64.0% 35 - 80 * r bc 4.82 3.5 - 5.5 * h gb 13.7 11.5 - 16.5 * h ct 40.7 35 - 55 * m cv 84.4 75 - 100 * m ch 28.4 25 - 35 * m chc 33.7 31 - 38 * p lat 369 100 - 400 * Maryana Castro 07/30/2024 4:1 6:15 PM > 1+ Provider reviewed results while patient in office. 3.?Dyspepsia? Start Sucralfate Tablet, 1 GM, 2, Orally, Twice a day, 30 days, 120, Refills 2;?Start Librax Capsule, 5-2.5 MG, 1 capsule before meals, Orally, Three times a day, 30 days, 90 Capsule, Refills 2. ?LAB: P-Alpha Gal, Gnuuvdzvz-Ocmha-4,3-Galactose (Alpha-Gal) IgE (Collection Date & Time - 07/30/2024 03:10 PM)?Normal* Value Reference Range G jqrvoedo-Ifgio-7,3-Galactose (Alpha-Gal) IgE <0.1 <0.10-0.34 - kU/L * Maryana Castro 08/08/2024 5:1 4:16 PM >Patient informed of normal results. ?LAB: CBC Fingerstick (in house) (Collection Date & Time - 07/30/2024)* Value Reference Range w bc 6.7 3.5 - 10 * l ym 28.2% 15 - 50 * m id 7.8% 2 - 15 * g ran 64.0% 35 - 80 * r bc 4.82 3.5 - 5.5 * h gb 13.7 11.5 - 16.5 * h ct 40.7 35 - 55 * m cv 84.4 75 - 100 * m ch 28.4 25 - 35 * m chc 33.7 31 - 38 * p lat 369 100 - 400 * Maryana Castro 07/30/2024 4:1 6:15 PM > 1+ Provider reviewed results while patient in office. * Labs: * L ab: Allergy Footnotes (Collection Date & Time - 07/30/2024 03:10 PM) N ormal Value Reference Range A llergy Footnotes SEE COMMENT - * [facility], support 08/02/2024 03:30:07 : This order was created by the Interface. Maryana Castro 08/08/2024 5:14:16 PM >Patient informed of normal results. * Procedure Codes: 3 6416 CAPILLARY BLOOD DRAW, [address] CBC WITH AUTO DIFF, 3077F SYST BP = 140 MM HG6 IT, 3078F DIAST BP < 80 MM HG * Follow Up: 3 Weeks * Billing Information: * Visit Code: 81683 Office Visit, Est Pt., Level 4. * Procedure Codes: 88611 CAPILLARY BLOOD DRAW. 30844 CBC WITH AUTO DIFF. 3077F SYST BP = 140 MM HG6 IT. 3078F DIAST BP < 80 MM HG. * Electronic signature of Elodia Patton MD on 11/05/2024 at 04:51 AM EDT Sign off status: Pending * Provider: Elodia Patton M.D. Date: 0 07/30/2024 Generated for [employer] ng/Lucie/eTransmitting on: 0 11/05/2024 04:51 AM EDT History and Physical Notes * HPI (History of Present Illness) Category Sub-Category Detail Notes Category Not es Gastroenterology Fever Past histor y reviewed regarding the persistant rash. Recent GI history reviewed. He does not give a history of meat intolerance, but I would like to r/o AlphaGal. Vomiting Abdominal Pain Diarrhea Blood in Stool Nausea Acid Reflux melena Examination Category Sub-Category Detail Notes Category Not es General Examination HEENT: unremarkable Heart: RSR Lungs: clear to auscultatio n Abdomen: soft , nontender , n o organomegaly or masses, surgical scar , hyperactive BS Extremities: no leg edema General Appearance: NAD Skin: normal, no rash Neurologic Exam: Intact, gait normal Neck: supple, no lymphaden opathy Oral cavity: no lesions, mucosa m oist and WNL, no erythema Peripheral pulses: normal (2+) bilatera lly Chest: normal shape and exp ansion
--- OUTSIDE RECORDS SUMMARY | 2024-08-20 11:15 | XMS_ITS ---
Author Organization [facility] Address [facility]0 [facility] [address] [place] [phone] Care Team Providers Care Quarryman Name Role Phone Elodia Patton Primary Care [...] meals Orally three times a day as needed for 30 days 08/20/2024 Active Isosorbide Mononitrate ER 60 MG 1 tablet in the morning Orally Once a day Not-Taking amLODIPine Besylate 5 MG 1 tablet Orally Once a day for 90 days Active Librax 5-2.5 MG 1 capsule before cortney ls Orally Three times a day for 30 days 07/30/2024 Active Sucralfate 1 GM 2 Orally Twice a day for 30 days 07/30/2024 Active Iberogast - as directed Orally Not-Taking Nitroglycerin 0.4 MG 1 tab(s) sublingual ly every 5 minutes Active Metoprolol Succinate ER 50 MG 1/2 tab Active Plavix 75 MG 1 tablet Orally Once a day for 30 day(s) Active Irbesartan 150 MG 1 tablet Orally Once a day for 30 day(s) Active Align - as directed Orally N ot-Taking Voquezna 20 MG 1 tablet Orally Once a day for 30 day(s) Not-Taking Pantoprazole Sodium 40 MG 1 tablet Orall y Once a day Active Problems Problem Type SNOMED Code ICD Code Onset Dates Problem Status W/U Status Risk Notes Problem [id number] Oropharyngeal dysphagia (R13.12) Active confirmed Vital Signs Blood pressure systolic 140 mm Hg 08/21/19 25 Blood pressure diastolic 70 mm Hg 025 Heart Rate 66 /min 08/20/2024 Height 68.75 in 08/20/2024 Weight 140.4 lbs 08/20/2024 BMI 20.88 kg/m2 08/20/2024 Encounters Encounter Location Date Provider Diagnosis [facility] [address] [facility] 36 [facility] [address] [place] [address], [place] [phone] 08/20/2024 Elodia Patton Oropharyngeal dyspha selwyn R13.12 [...] meals Orally three times a day as needed for 30 days 08/20/2024 Next Appt Details Follow Up: 4 Weeks, Reason: Progress Notes * МАРИНА HALLDOB: [birth year] (59 yo M)Acc No.[id number]:08/20/2024 Progress Notes Patient: МАРИНА WALKER Provider: Elodia Patton M.D. :1965 A ge:58 Y S ex:Male Date:08/20/2024 Address:[address] [place] [address] [place] [id number] Subjective: * Chief Complaints: * 1 . 3 Week Follow Up. * HPI: G astroenterology: The patient is here for a follow up on Acid reflux and Dysphagia. Pt states he is doing about the same. Pt states will sometimes vomiting and it is nothing but bile. Pt states sometimes it feels like his food gets stuck and he can't swaloow it down and other times it goes [...] C 4-C5 Neck Fusion 2015, [facility]- [facility] [employer] 12/31/2019. * Hospitalization/Major Diagno stic Procedure: M [...] ysuria - R30.0 ? 3 . B DE 20.0-20.9, adult - Z68.20 Plan: * Treatment: [...] aggie Neg * G kush Neg * OnealSrideviTiff 08/20/2024 4:51:58 PM > * Procedure Codes: 8 1002 Urinalysis, no micro, 3077F SYST BP = 140 MM HG6 IT, 3078F DIAST BP < 80 MM HG * Follow Up: 4 Weeks * Billing Information: * Visit Code: 73360 Office Visit, Est Pt., Level 3. * Procedure Codes: 87555 Urinalysis, no micro. 3077F SYST BP = 140 MM HG6 IT. 3078F DIAST BP < 80 MM HG. * Electronic signature of Elodia Patton MD on 11/05/2024 at 04:52 AM EDT Sign off status: Pending * Provider: Elodia Patton M.D. Date: 0 08/20/2024 Generated for Lorai ng/Fatorrig/eTransmitting on: 0 11/05/2024 04:52 AM EDT History and Physical Notes * [...]
--- OUTSIDE RECORDS SUMMARY | 2024-10-25 06:00 | XMS_ITS ---
Author Organization [facility] Address [address] [facility] [address] [facility] [address] [place] [id number] Care Team Providers Care Sports Athletic Trainer Name Role Phone Elodia Patton Primary Care Provider Shawn Mcgee Unavailable [phone] Allergies Allergen (clinical drug ingredient) Drug/Non Drug [...] Interpretation:191 Performing Lab: Notes/Report: Test performed by [facility] [address] [place] [address] , [address], [place] [address] Marcus Gunderson MD, Cardiac Cath Lab Manager CLIA: [id number] Amylase 191 28-100 U/L P-Comprehensive Metabolic Pa quita (CMP) Reviewed date:10/26/2024 10:54:13 AM Interpretation:Na 132, Chl 93, Creat 1.72, Parmjit 10.8, eGFR 45 Performing Lab: Notes/Report: Test performed by [facility] [address] [place] [address] Natanael Connors, [address], [place] [address] Marcus Gunderson MD, Cardiac Cath Lab Manager CLIA: [id number] Sodium 132 135-145 mmol/L Potassium 4.6 3.5-5.3 [...] 0.3 <0.2-1.2 mg/dL A/G Ratio 2.0 1.1-2.5 P-W-Zvyvroze Protein (CRP) Reviewed date:10/26/2024 10:54:13 AM Interpretation:Normal Performing Lab: Notes/Report: Test performed by [facility] [address] [place] [address] , [place] [address] Marcus Gunderson MD, Cardiac Cath Lab Manager CLIA: [id number] C-Reactive Protein (CRP) 0.26 <0.50 mg/dL P-Sed Rate (ESR) Reviewed date:10/26/2024 10:54:13 AM Interpretation:Normal Performing Lab: Notes/Report: Test performed by [facility] [address] [place] [address] , [facility] [address], [place] [address] Marcus Gunderson MD, Cardiac Cath Lab Manager CLIA: [id number] Erythrocyte Sedimentation Rate (ESR), Automated 5 <21 mm/hr P-Lipase Reviewed date:10/26/2024 10:54:13 AM Interpretation:154.1 Performing Lab: Notes/Report: Test performed by [facility] [address] [place] [address] , [address], [place] [address] Marcus Gunderson MD, Cardiac Cath Lab Manager CLIA: [id number] Lipase 154.1 13.0-60.0 u/L P-TSH reflex to FT4 Reviewed date:10/26/2024 10:54:13 AM Interpretation:Normal Performing Lab: Notes/Report: Test performed by [facility] [facility], [facility] [address] [place] [address] , [address], [place] [address] Marcus Gunderson MD, Cardiac Cath Lab Manager CLIA: [id number] TSH reflex to FT4 1.88 0.43-5.25 mU/L REASON FOR VISIT B/P low and weak and dizzy Medications Medication SIG (Take, Route, Frequency, Duration) Notes Start Date End Date Status Plavix 75 MG 1 tablet Orally Once a day for 30 day(s) Active Metoprolol Succinate ER 50 MG 1/2 tab Not-Taking Pantoprazole Sodium 40 MG 1 tablet Orall y Once a day Not-Taking dexAMETHasone 2 MG 1 tablet Orally twic e a day for 5 days 10/25/2024 Active Irbesartan 150 MG 1 tablet Orally Once a day for 30 day(s) Active Pramipexole Dihydrochloride 0.125 MG 1 tablet Orally Once a day for 90 days 10/25/2024 Active Iberogast - as directed Orally Not-Taking Isosorbide Mononitrate ER 60 MG 1 tablet in the morning Orally Once a day Not-Taking Dymista 137-50 MCG/ACT 1 spray in each nostril Nasally Twice a day for 30 days 10/25/2024 Active Align - as directed Orally N ot-Taking Librax 5-2.5 MG 1 capsule before cortney ls Orally Three times a day for 30 days 07/30/2024 Not-Taking amLODIPine Besylate 5 MG 1 tablet Orally Once a day for 90 days Not-Taking Sucralfate 1 GM 2 Orally Twice a day for 30 days 07/30/2024 Not-Taking Metoclopramide HCl 5 MG 1 tablet before meals Orally three times a day as needed for 30 days 08/20/2024 Not-Taking Voquezna 20 MG 1 tablet Orally Once a day for 30 day(s) Not-Taking Nitroglycerin 0.4 MG 1 tab(s) sublingual ly every 5 minutes Active Problems Problem Type SNOMED Code ICD Code Onset Dates Problem Status W/U Status Risk Notes Problem 75784706 Chronic rhinitis (J31.0) Active confirmed Vital Signs Blood pressure systolic 112 mm Hg 10/26/19 25 Blood pressure diastolic 68 mm Hg 025 Heart Rate 97 /min 10/25/2024 Height 68.75 in 10/25/2024 Weight 133 lbs 10/25/2024 BMI 19.78 kg/m2 10/25/2024 Encounters Encounter Location Date Provider Diagnosis Yolanda [address] [facility] [address] [place] [phone] 10/25/2024 Shawn Mcgee Chronic rhinitis J31 .0 [...] MG 1 tablet Orally twic e a day for 5 days 10/25/2024 Pramipexole Dihydrochloride 0.125 MG 1 tablet Orally Once a day for 90 days 10/25/2024 Dymista 137-50 MCG/ACT 1 spray in each n ostril Nasally Twice a day for 30 days 10/25/2024 Next Appt Details Follow Up: 5 Weeks, Reason: Progress Notes * МАРИНА HALLDOB: [birth year] (59 yo M)Acc No.[id number]:10/25/2024 Progress Notes Patient: МАРИНА WALKER Provider: Ekaterina Mcgee M.D. :1965 A ge:59 Y S ex:Male Date:10/25/2024 Address:[address] [place] [address] [id number] Pcp:Elodia Patton Subjective: * Chief Complaints: * [...] C 4-C5 Neck Fusion 2015, Neck- [employer] 12/31/2019. * Hospitalization/Major Diagno stic Procedure: M [...] G eneral Examination: General Appearance: N AD. Oral cavity: n o lesions, mucosa moist and WNL, no erythema. Heart: R SR. Lungs: c lear to auscultation. Peripheral pulses: n ormal (2+) bilaterally. Extremities: [...] EDT > See phone encounter 3.?Weight loss?LAB: X-K-Khfpzdii Protein (CRP) (Collection Date & Time - [...] HG * Follow Up: 5 Weeks * Billing Information: * Visit Code: 04157 Office Visit, Est Pt., Level 4. * Procedure Codes: 51080 CBC WITH AUTO DIFF. G8783 BP SCR PRFRM RCMDD DEFIND SCR INTVL. G8752 MOST RECENT SYSTOLIC BP < 140MM HG. G8754 MOST RECENT DIASTOLIC BP < 90MM HG. * Electronic signature of Nika Mcgee MD on 11/05/2024 at 04:51 AM EDT Sign off status: Pending * Provider: Ekaterina Mcgee M.D. Date: 10/25/2024 Generated for Jacinto mendieta/Lucie/Johanny on: 0 11/05/2024 04:51 AM EDT History [...]
[2024-11-05] VITALS (27 sets, daily range): BP systolic 118–182; BP diastolic 57–91; PULSE 60–110; RESP 13–18; TEMP 36.6–36.9; O2SAT 93–100; BMI 20.2
--- NOTE | 2024-11-05 04:42 | ECG_ITS ---
APPROVED REPORT Exam: Resting ECG HR:111 bpm ECG Measurements Heart Rate 111 AXES MO 158 P 87 QRSd 89 QRS 80 QT 307 T 74 QTc 373 Conclusion SINUS TACHYCARDIA RIGHT ATRIAL ENLARGEMENT [0.3mV P-WAVE] POSSIBLE LEFT ATRIAL ENLARGEMENT [-0.1mV P-WAVE IN V1/V2] ANTEROSEPTAL MYOCARDIAL INFARCTION , OF INDETERMINATE AGE [40+ ms Q WAVE IN V1-V4] ABNORMAL ECG UNCONFIRMED REPORT Electronically signed by : SHRUTHI MONROE, 11/06/2024 06:34:58
--- NOTE | 2024-11-05 04:44 | HMH.EDGENADL ---
Discharge Plan Disposition Chief Complaint: Chest Pain Prescriptions Prescriptions: No Action nitroglycerin 0.4 mg tablet, sublingual 0.4 mg sublingual Q5-15M PRN Patient Comments: DISSOLVE ONE TABLET UNDER THE TONGUE EVERY 5 MINUTES NEEDED FOR CHEST PAIN. DO NOT EXCEED A TOTAL OF 3 DOSES IN 15 MINUTES Rx Instructions: DISSOLVE ONE TABLET UNDER THE TONGUE EVERY 5 MINUTES NEEDED FOR CHEST PAIN. DO NOT EXCEED A TOTAL OF 3 DOSES IN 15 MINUTES sucralfate 1 gram tablet 1 g PO ONCE chlordiazepoxide-clidinium 5-2.5 mg capsule 1 cap PO ONCE ondansetron 8 mg tablet,disintegrating 8 mg PO Q12H PRN (Reason: nausea and vomiting) Qty: 7 0RF irbesartan 150 mg tablet 150 mg PO DAILY Qty: 90 1RF Patient Comments: TAKE 1 TABLET BY MOUTH ONCE DAILY clopidogrel 75 mg tablet See Rx Instructions .ROUTE .COMPLEX Qty: 90 3RF Dose Instruction: TAKE 1 TABLET BY MOUTH ONCE DAILY FOR PLATELET INHIBITOR Rx Instructions: TAKE 1 TABLET BY MOUTH ONCE DAILY FOR PLATELET INHIBITOR pantoprazole 40 mg tablet,delayed release (DR/EC) See Rx Instructions .ROUTE .COMPLEX Qty: 90 1RF Dose Instruction: Take 1 tablet by mouth once daily Rx Instructions: Take 1 tablet by mouth once daily metoprolol succinate 50 mg tablet extended release 24 hr 50 mg PO DAILY Patient Comments: TAKE 1 TABLET BY MOUTH ONCE DAILY amlodipine 5 mg tablet 5 mg PO DAILY Patient Comments: TAKE 1 TABLET BY MOUTH ONCE DAILY sulfamethoxazole-trimethoprim [Bactrim DS] 800-160 mg tablet 1 tab PO BID 5 Days Qty: 10 0RF tamsulosin 0.4 mg capsule 0.4 mg PO HS Qty: 30 0RF Referrals Follow up/Referrals: Provider,Referral, [Primary Care Provider, Medical] - See instructions Clinical Impressions Clinical Impression: Syncope, Dehydration, Hypomagnesemia, Chest pain Print Language Print Language: Bulgarian Discharge ED Provider: Jari Omer General Adult HPI <Tate Solis MD - Last Filed: 11/05/24 06:47> General Chief complaint: Chest Pain Stated complaint: chest pain Time Seen by Provider: 11/05/24 04:44 History of Present Illness HPI narrative: 59-year-old male with a of coronary artery disease, hypertension, chronic kidney disease, COPD presents for chest pain. He reports he has been feeling generally weak and bad over the last few days. He started having chest pain and shortness of breath yesterday. This morning when he woke up he was not feeling well. He was in the shower and apparently passed out. His significant other heard a crash and came into the bathroom and found him. Family thinks that he passed out because he has not been eating or drinking much. He has been having issues for months, has seen a GI doctor, has had multiple endoscopies, has seen a vascular surgeon, but they have never been able to follow-up with a satisfactory explanation for his symptoms. Related Data Home Medications ?Medication ?Instructions ?Recorded ?Confirmed amlodipine 5 mg tablet 5 mg PO DAILY 03/24/24 11/02/24 metoprolol succinate 50 mg 50 mg PO DAILY 03/24/24 11/02/24 tablet,extended release 24 hr chlordiazepoxide-clidinium 5 1 cap PO ONCE 08/13/24 11/02/24 mg-2.5 mg capsule nitroglycerin 0.4 mg sublingual 0.4 mg sublingual Q5-15M PRN 08/13/24 11/02/24 tablet sucralfate 1 gram tablet 1 g PO ONCE 08/13/24 11/02/24 Previous Rx's ?Medication ?Instructions ?Recorded irbesartan 150 mg tablet 150 mg PO DAILY #90 tabs 05/24/24 clopidogrel 75 mg tablet See Rx Instructions .Route 07/04/24 .COMPLEX #90 tabs pantoprazole 40 mg tablet,delayed See Rx Instructions .Route 09/24/24 release .COMPLEX #90 tabs sulfamethoxazole 800 1 tab PO BID 5 days #10 tabs 10/16/24 mg-trimethoprim 160 mg tablet (Bactrim DS) tamsulosin 0.4 mg capsule 0.4 mg PO HS #30 caps 10/16/24 ondansetron 8 mg disintegrating 8 mg PO Q12H PRN nausea and 11/02/24 tablet vomiting #7 tabs Allergies Allergy/AdvReac Type Severity Reaction Status Date / Time No Known Allergies Allergy Verified 11/02/24 10:44 [facility] <Tate Solis MD - Last Filed: 11/05/24 06:47> [facility] Disclaimer: The information contained in this section may have been updated after the patient was seen, as this information can be updated by other users. Medical History HTN (hypertension) Renal artery stenosis Chronic renal insufficiency, stage II (mild) Metatarsal fracture Fatigue SMOOTH (obstructive sleep apnea) COPD (chronic obstructive pulmonary disease) Pectus excavatum Right atrial enlargement Tobacco user HLD (hyperlipidemia) CAD (coronary artery disease) Surgical History History of neck surgery History of coronary artery stent placement H/O shoulder surgery Hx of knee surgery Family History Father Family history of myocardial infarction Social History Smoking Status: Current every day smoker tobacco type: cigarettes packs per day: 1 second hand exposure: Yes alcohol intake: never substance use type: denies use current occupational status: employed Travel in the last 8 weeks?: None household members: significant other housing: house current occupation: [employer] current occupational exposures/hazards: No caffeine: Yes Have you lived/traveled outside US in past 30 days?: No Contact w/someone who lives/traveled outside US past 30 days?: No Exposure to someone with infectious disease in past 14 days?: No Do you have a fever (greater than 100.4 F or 38 C)?: No Have you tested positive for COVID-19?: No Exposed to someone with COVID-19 in past 14 days?: No Do you have a sore throat?: No Do you have a cough?: No Do you have any weakness?: No Do you have any diarrhea?: No Are you experiencing any unusual bleeding?: No Do you have any muscle aches/pain?: No Do you have any abdominal pain?: No Are you experiencing loss of taste or smell?: No Other Medical History Have you received the Flu Vaccine for this season: No Have you received the Pneumonia Vaccine: Yes <Tate Solis MD - Last Filed: 11/05/24 06:47> ROS Obtained: Yes All systems reviewed & no additional complaints except as documented Physical Exam <Tate Solis MD - Last Filed: 11/05/24 06:47> General General appearance: alert and in no apparent distress Head Head exam: atraumatic and normocephalic Eye Eye exam: Present normal appearance, PERRL and EOMI ENT ENT exam: Present normal oropharynx and normal external ear exam Neck Neck exam: Present normal inspection and full ROM Chest Chest inspection: Present normal inspection and symmetric chest wall rise; Absent tenderness Respiratory Respiratory exam: Present normal lung sounds bilaterally; Absent respiratory distress Cardiovascular Cardiovascular exam: Present regular rate and normal rhythm Abdominal Exam Abdominal exam: Present soft; Absent distention, tenderness or guarding Extremities Exam Extremities exam: Present normal inspection; Absent edema or joint swelling Back Exam Back exam: Present normal inspection; Absent tenderness Neurological Exam Neurological exam: Present alert and oriented X3; Absent motor sensory deficit Psychiatric Psychiatric exam: Present normal affect and normal mood Skin Skin exam: Present warm, dry and normal color Lymphatic Lymphatic Findings: no adenopathy Medical Decision Making <Tate Solis MD - Last Filed: 11/05/24 06:47> Medical Records Medical records reviewed: Yes I reviewed the patient's medical records. Screening: Per USPSTF and CDC recommendations, given the prevalence of disease in our region, it is our hospital?s policy to screen for HIV and viral Hepatitis for all patients aged 18 and over and those with ongoing risk factors. Wagner Inquiry Pt receiving controlled substance: No Wagner was queried for this patient: No Vital Signs: 11/05/24 04:45 Temperature 98.5 F Temperature Source Oral Pulse Rate [Radial] 110 H Respiratory Rate 18 Blood Pressure [Right Arm] 122/91 H Blood Pressure Mean [Right Arm] 101 Blood Pressure Position [Right Arm] Sitting 02 Sat by Pulse Oximetry 100 Oxygen Delivery Method Room Air Lab Data Lab results reviewed: Yes I reviewed the patient's lab results. Lab Results 11/05/24 04:45: WBC 11.0 H, RBC 4.36 L, Hgb 12.2 L, Hct 36.9 L, MCV 84.6, MCH 28.0, MCHC 33.1, RDW 13.1, Plt Count 538 H, MPV 9.0, Neut % (Auto) 62.3, Lymph % (Auto) 22.9, Cabell % (Auto) 8.3, Eos % (Auto) 4.1, Baso % (Auto) 0.8, Neut # (Auto) 6.9, Lymph # (Auto) 2.5, Cabell # (Auto) 0.9, Eos # (Auto) 0.5 H, Baso # (Auto) 0.1, D-Dimer 0.45, Sodium 128 L, Potassium 4.5, Chloride 94 L, Carbon Dioxide 31 H, Anion Gap 7.5, BUN 45 H, Creatinine 1.30 H, Estimated Creat Clear 51, Estimated GFR 56 L, Est GFR ( Amer) 68, Glucose 137 H, Calcium 11.8 H, Magnesium 1.4 L, Total Bilirubin 0.5, AST 17, ALT 13, Alkaline Phosphatase 48, Troponin I < 0.01 11/05/24 04:45: Troponin I < 0.01, Total Protein 6.5, Albumin 3.9, Globulin 2.6, Albumin/Globulin Ratio 1.5, Lipase 109 11/05/24 04:45 11/05/24 04:45 Orders (Tests/Meds): ED MEDICATIONS Generic Name Dose Route Start Last Admin Trade Name Freq PRN Reason Stop Dose Admin Sodium Chloride 1,000 mls @ 999 mls/hr 11/05/24 06:30 11/05/24 06:36 Sod Chlor 0.9% 1000ml Bag IV 11/05/24 07:30 999 mls/hr .Q1H1M LASHON Administration Nitroglycerin 0.4 mg 11/05/24 04:46 Nitroglycerin 0.4mg Sl Tablet SL 11/06/24 04:46 Q5MINP PRN Chest Pain Discontinued Medications Generic Name Dose Route Start Last Admin Trade Name Freq PRN Reason Stop Dose Admin Acetaminophen 1,000 mg 11/05/24 04:48 11/05/24 04:50 Acetaminophen 500mg Tab PO 11/05/24 04:49 1,000 mg ONCE ONE Administration Aspirin 324 mg 11/05/24 04:46 11/05/24 04:49 Aspirin 81mg Chewable Tablet PO 11/05/24 04:47 324 mg ONCE ONE Administration Belladonna Alkaloids 60 ml 11/05/24 04:48 11/05/24 04:50 Belladonna Alkaloids 60 Ml Ml PO 11/05/24 04:49 60 ml ONCE ONE Administration Sodium Chloride 1,000 mls @ 999 mls/hr 11/05/24 05:45 11/05/24 05:36 Sod Chlor 0.9% 1000ml Bag IV 11/05/24 06:45 999 mls/hr .Q1H1M LASHON Administration Magnesium Sulfate 2 gm in 50 mls @ 150 mls/hr 11/05/24 06:29 11/05/24 06:37 Magnesium Sulfate 2gm/50ml Premix IV 11/05/24 06:48 150 mls/hr ONCE ONE Administration Magnesium Sulfate 2 gm in 50 mls @ 150 mls/hr 11/05/24 06:30 11/05/24 06:37 Magnesium Sulfate 2gm/50ml Premix IV 11/05/24 06:49 150 mls/hr ONCE ONE Administration Ondansetron HCl 4 mg 11/05/24 04:46 11/05/24 04:49 Ondansetron 4mg/2ml Vial IV 11/05/24 04:47 4 mg ONCE ONE Administration ORDERS Category Date Time Status XR chest portable Stat Exams 11/05/24 04:46 Completed Complete Blood Count Auto Diff Stat Lab 11/05/24 04:45 Completed Comprehensive Metabolic Panel Stat Lab 11/05/24 04:45 Completed D-Dimer Stat Lab 11/05/24 04:45 Completed Lipase Stat Lab 11/05/24 04:45 Completed Magnesium Stat Lab 11/05/24 04:45 Completed Troponin I Q3H Lab 11/05/24 04:45 Completed Troponin I Q3H Lab 11/05/24 08:00 Ordered Troponin I Stat Lab 11/05/24 04:45 Completed ECG Data Tracing #1: I reviewed this ECG and interpreted as documented below: Sinus tachycardia, rate of 111, no significant ST elevation, no T wave abnormalities. ECG initial impression date: 11/05/24 ECG initial impression time: 04:42 HEART Score History (anamnesis): Moderately suspicious ECG: Normal Age: >65 years Risk factors: Atherosclerosis history Troponin: </= normal limit HEART Score: 5 Medical Decision Narrative: 59-year-old male with history of pretension artery disease ED chronic kidney presents after feeling bad for couple of days, chest pain since yesterday, syncopal episode this morning in the shower. History was obtained via interactive discussion with patient. On arrival, patient is [afebrile, hemodynamically stable, satting appropriately, alert, oriented x4, GCS 15], moving all extremities spontaneously. Full physical exam performed and significant for no significant physical exam abnormalities. Differential includes but is not limited to ACS, PE, dehydration, electrolyte derangement, arrhythmia, vasovagal syncope. Patient was given aspirin, Tylenol, GI cocktail, Zofran for symptomatic management and correction of underlying abnormalities. Workup initiated including CBC CMP troponin lipase mag EKG chest x-ray D-dimer.. On re-evaluation, patient [remains afebrile, HD stable.] Laboratory workup independently interpreted by me and significant for mild hyponatremia, 128 down from baseline of 134. Hypomagnesemia with mag of 1.4. Negative initial troponin. BUN elevated from baseline. Imaging independently interpreted by me and significant for the lungs bilaterally without focal opacity. See radiology read for full review of final results. Given patient history, exam and workup, patient's presentation most likely represents vasovagal syncope secondary to dehydration. Patient was given total of 2 L of NS and 4 g of IV mag. At this time period of time physician pending second troponin, repeat BMP and decision regarding disposition.. <Jair Omer MD - Last Filed: 11/05/24 07:26> Vital Signs: 11/05/24 04:45 Temperature 98.5 F Temperature Source Oral Pulse Rate [Radial] 110 H Respiratory Rate 18 Blood Pressure [Right Arm] 122/91 H Blood Pressure Mean [Right Arm] 101 Blood Pressure Position [Right Arm] Sitting 02 Sat by Pulse Oximetry 100 Oxygen Delivery Method Room Air Lab Data Lab Results 11/05/24 04:45: WBC 11.0 H, RBC 4.36 L, Hgb 12.2 L, Hct 36.9 L, MCV 84.6, MCH 28.0, MCHC 33.1, RDW 13.1, Plt Count 538 H, MPV 9.0, Neut % (Auto) 62.3, Lymph % (Auto) 22.9, Cabell % (Auto) 8.3, Eos % (Auto) 4.1, Baso % (Auto) 0.8, Neut # (Auto) 6.9, Lymph # (Auto) 2.5, [place]ell # (Auto) 0.9, Eos # (Auto) 0.5 H, Baso # (Auto) 0.1, D-Dimer 0.45, Sodium 128 L, Potassium 4.5, Chloride 94 L, Carbon Dioxide 31 H, Anion Gap 7.5, BUN 45 H, Creatinine 1.30 H, Estimated Creat Clear 51, Estimated GFR 56 L, Est GFR ( Amer) 68, Glucose 137 H, Calcium 11.8 H, Magnesium 1.4 L, Total Bilirubin 0.5, AST 17, ALT 13, Alkaline Phosphatase 48, Troponin I < 0.01 11/05/24 04:45: Troponin I < 0.01, Total Protein 6.5, Albumin 3.9, Globulin 2.6, Albumin/Globulin Ratio 1.5, Lipase 109 Orders (Tests/Meds): ED MEDICATIONS Generic Name Dose Route Start Last Admin Trade Name Freq PRN Reason Stop Dose Admin Sodium Chloride 1,000 mls @ 999 mls/hr 11/05/24 06:30 11/05/24 06:36 Sod Chlor 0.9% 1000ml Bag IV 11/05/24 07:30 999 mls/hr .Q1H1M LASHON Administration Nitroglycerin 0.4 mg 11/05/24 04:46 Nitroglycerin 0.4mg Sl Tablet SL 11/06/24 04:46 Q5MINP PRN Chest Pain Discontinued Medications Generic Name Dose Route Start Last Admin Trade Name Freq PRN Reason Stop Dose Admin Acetaminophen 1,000 mg 11/05/24 04:48 11/05/24 04:50 Acetaminophen 500mg Tab PO 11/05/24 04:49 1,000 mg ONCE ONE Administration Aspirin 324 mg 11/05/24 04:46 11/05/24 04:49 Aspirin 81mg Chewable Tablet PO 11/05/24 04:47 324 mg ONCE ONE Administration Belladonna Alkaloids 60 ml 11/05/24 04:48 11/05/24 04:50 Belladonna Alkaloids 60 Ml Ml PO 11/05/24 04:49 60 ml ONCE ONE Administration Sodium Chloride 1,000 mls @ 999 mls/hr 11/05/24 05:45 11/05/24 05:36 Sod Chlor 0.9% 1000ml Bag IV 11/05/24 06:45 999 mls/hr .Q1H1M LASHON Administration Magnesium Sulfate 2 gm in 50 mls @ 150 mls/hr 11/05/24 06:29 11/05/24 06:37 Magnesium Sulfate 2gm/50ml Premix IV 11/05/24 06:48 150 mls/hr ONCE ONE Administration Magnesium Sulfate 2 gm in 50 mls @ 150 mls/hr 11/05/24 06:30 11/05/24 06:37 Magnesium Sulfate 2gm/50ml Premix IV 11/05/24 06:49 150 mls/hr ONCE ONE Administration Ondansetron HCl 4 mg 11/05/24 04:46 11/05/24 04:49 Ondansetron 4mg/2ml Vial IV 11/05/24 04:47 4 mg ONCE ONE Administration ORDERS Category Date Time Status XR chest portable Stat Exams 11/05/24 04:46 Completed Complete Blood Count Auto Diff Stat Lab 11/05/24 04:45 Completed Comprehensive Metabolic Panel Stat Lab 11/05/24 04:45 Completed D-Dimer Stat Lab 11/05/24 04:45 Completed Lipase Stat Lab 11/05/24 04:45 Completed Magnesium Stat Lab 11/05/24 04:45 Completed Troponin I Q3H Lab 11/05/24 04:45 Completed Troponin I Q3H Lab 11/05/24 08:00 Ordered Troponin I Stat Lab 11/05/24 04:45 Completed HEART Score HEART Score: 5 Medical Decision Narrative: 59-year-old male with history of pretension artery disease ED chronic kidney presents after feeling bad for couple of days, chest pain since yesterday, syncopal episode this morning in the shower. History was obtained via interactive discussion with patient. On arrival, patient is afebrile, hemodynamically stable, satting appropriately, alert, oriented x4, GCS 15, moving all extremities spontaneously. Full physical exam performed and significant for no significant physical exam abnormalities. Differential includes but is not limited to ACS, PE, dehydration, electrolyte derangement, arrhythmia, vasovagal syncope. Patient was given aspirin, Tylenol, GI cocktail, Zofran for symptomatic management and correction of underlying abnormalities. Workup initiated including CBC CMP troponin lipase mag EKG chest x-ray D-dimer.. On re-evaluation, patient remains afebrile, HD stable. Laboratory workup independently interpreted by me and significant for mild hyponatremia, 128 down from baseline of 134. Hypomagnesemia with mag of 1.4. Negative initial troponin. BUN elevated from baseline. Imaging independently interpreted by me and significant for the lungs bilaterally without focal opacity. See radiology read for full review of final results. Given patient history, exam and workup, patient's presentation most likely represents vasovagal syncope secondary to dehydration. Patient was given total of 2 L of NS and 4 g of IV mag. At this time period of time physician pending second troponin, repeat BMP and decision regarding disposition.. I, Jair Kan took over this patient around 7 AM and on my assessment is still symptomatic with intermittent chest pain, lightheadedness and is tachycardic to the low 100s. Discussed with patient at bedside about possibly admitted for hyper syncope and discussed with hospital medicine service and patient was ultimately admitted to their team for further management. Patient had multiple electrolyte abnormalities Procedures <Tate Solis MD - Last Filed: 11/05/24 06:47> Risk/Benefits of Procedure(s) Were Explained: Yes Critical Care <Tate Solis MD - Last Filed: 11/05/24 06:47> Critical Care Time Critical Care Time: No
--- NOTE | 2024-11-05 04:46 | XR_ITS ---
PROCEDURE INFORMATION: Exam: XR Chest Exam date and time: 11/05/2024 5:04 AM Age: 59 years old Clinical indication: Sternal or substernal pain; Additional info: Chest pain TECHNIQUE: Imaging protocol: Radiologic exam of the chest. Views: 1 view. COMPARISON: CR XR CHEST PORTABLE 05/26/2021 2:26 PM FINDINGS: Lungs: No lobar consolidation. One or 2 pulmonary granulomata. Pleural spaces: No pleural thickening or intrapleural air. Heart/Mediastinum: Cardiac silhouette not enlarged. Interval right coronary stents. Vasculature: Aortic tortuosity. Bones/joints: Bones unremarkable. IMPRESSION: No acute cardiopulmonary radiographic findings.
[2024-11-05] MEDS: ASPIRIN 81MG CHEWABLE TABLET 324 MG PO (04:49)
[2024-11-05] MEDS: ONDANSETRON 4MG/2ML VIAL 4 MG IV (04:49)
[2024-11-05] MEDS: ACETAMINOPHEN 500MG TAB 1000 MG PO (04:50)
[2024-11-05] MEDS: BELLADONNA ALKALOIDS 60 ML ML PO (04:50)
--- OUTSIDE RECORDS SUMMARY | 2024-11-05 04:51 | XMS_ITS | Encounter Summary ---
Author Organization [employer] Address [address] [place] [id number] Care Team Providers Care Patient Admitting Representative Name Role Phone Stanislaw Martinez MD Primary Care Provider [phone] Encounter Details Date Type Department Care Team (Late st Contact Info) Description 12/30/[address] [facility] [place] [address] ProviderLucy MD [address] [place] [id number] Social History Tobacco Use Types Packs/Day Years Used Date Smoking Tobacco: Never Assessed Sex and Gender Information Value Date Recorded Sex Assigned at Not on file Legal Sex Male 5:20 PM CDT Gender Identity Not on file Sexual Orientation Not on file documented as of this encounter Miscellaneous Notes * Cerner Conversion Note - Lucy Scott MD - 12/30/2020 7:07 PM CDT [facility] [place] [address] МАРИНА HALL :1965 Visit Time:12/30/2020 Your Visit Summary Your Care Team Admitting Physician - DEBBY ROMERO MD-CAR Attending Physician - DEBBY ROMERO MD-CAR Primary Care Physician - STANISLAW MARTINEZ MD-[facility] Referring Physician - DEBBY ROMERO [...] Call for follow up appointment Where: [address] [facility] [address] [place] [id number]- Medications What How Much When Instructions Next [...] cause a heart attack (myocardial infarction or DE). This condition may also be called coronary [...] these instructions at home: Medicines ??? Take sofw-ali-svbfvqb and prescription medicines only as told by [...] provider. Document Revised: 01/19/2019 Document Reviewed: 01/09/2019 [employer] Patient Education ?? 2020 [employer]. What you need to know about coronavirus disease 2019 (COVID-19) Missing Image - the embedded image is not supported https://www.cdc.gov/coronavirus/2019-ncov/ HYPERLINK https://www.cdc.gov/coronavirus/2019-ncov/cases-in-us.html cases-in-us.html. How does COVID-19 spread? The virus that causes COVID-19 probably emerged from an animal source, but now it seems to be spreading from person to person. It???s important to note that eiyimr-ew-osccnx spread can happen on a continuum. Some [...] least 20 seconds. Use an alcohol-based hand packaging manager that contains at least 60% alcohol if [...] you are awake and alert. ??? Take fcpb-idn-kgcxslb and prescription medicines only as told by [...] provider. Document Revised: 04/14/2018 Document Reviewed: 08/21/2016 [employer] Patient Education ?? 2020 [employer]. Transradial Angiogram A transradial angiogram is an [...] including vitamins, herbs, eye drops, creams, and oxfk-wuv-ondnwwb medicines. ??? Any problems you or family [...] tells you to take them. ??? Taking idti-eoo-gvcugnq medicines, vitamins, herbs, and supplements. Exams and [...] provider. Document Revised: 03/26/2019 Document Reviewed: 03/26/2019 [employer] Patient Education ?? 2020 [employer] Radial Site Care This sheet gives [...] these instructions at home: Medicines ??? Take guoh-oqi-xjsnxio and prescription medicines only as told by your health care provider. Insertion site care ??? Follow instructions from your health care provider about how to take care of your insertion site. Make sure you: ? Wash your hands with soap and water before you change your bandage (dressing). If soap and water are not available, use hand packaging manager. ? Change your dressing as told by [...] Reviewed: 06/07/2018 [employer] Patient Education ?? 2020 [employer] Emergency Awareness and Preventative Care STROKE [...] Assistance with quitting is available by contacting 0-677-AJMWNOW. This is a free resource providing counseling, support, and referral. Or you may contact your personal physician. Signicat Suicide Prevention Lifeline: The National Suicide Prevention [...] was given the opportunity to ask questions. Patient/Guard Rail Installer Name: Patient/Guard Rail Installer Signature: Relationship to Patient: Clinician/Hospital Guard Rail Installer Signature: Date: Electronically signed by Interface, [facility] Conversion Hand Inserter Operator Cerner at 08/31/2022 10:54 PM CDT documented in this encounter Plan of Treatment Not on file documented as of this encounter Visit Diagnoses Not on filedocumented in this encounter Care Teams Patient Admitting Representative Relationship Specialty Start Date End Date Stanislaw Martinez MD [address] [place] [address] PCP - General Family Medicine 06/03/23 documented as of this encounter
--- OUTSIDE RECORDS SUMMARY | 2024-11-05 04:51 | XMS_ITS | Encounter Summary ---
Author Organization [employer] Address [address] [place] [address] Care Team Providers Care Hospital Scientist Name Role Phone Carl Patton MD Primary Care Provider [phone] [phone] Encounter Details Date Type Department Care Team (Late st Contact Info) Description 12/30/2020 Transcribed Document [facility] Family Medicine [facility] [place], [place] [id number] ProviderLucy MD [address] [place] [address] Social History Tobacco Use Types Packs/Day Years [...] Patient Referral Reason Comment : Advance directive Scalper Operator Services Provided : Yes Scalper Operator Services Provided Comment : Living will Ministry Provided to : Patient, Family/Significant other Latter-Day Preference : Other: No JACK ALFARO 12/30/2020 [...] Family/Significant other supported, Information provided Spiritual and Latter-Day : Spiritual/Latter-Day support provided JACK ALFARO 12/30/2020 12:50 EDT Electronically signed by Charlene [facility] Conversion Spring Fitter Helper Cerner at 08/31/2022 10:41 PM CDT documented in this encounter Plan of Treatment Not on file documented as of this encounter Visit Diagnoses Not on filedocumented in this encounter Care Teams Hospital Scientist Relationship Specialty Start Date End Date Carl Patton MD [address] [place] [address] PCP - General Family Medicine 06/03/23 documented as of this encounter
--- OUTSIDE RECORDS SUMMARY | 2024-11-05 04:51 | XMS_ITS | Encounter Summary ---
Author Organization [employer] Address [address] [place] [address] Care Team Providers Care Senior Bi Architect Name Role Phone Carl Patton MD Primary Care Provider [phone] [phone] Encounter Details Date Type Department Care Team (Late st Contact Info) Description 12/30/2020 Transcribed Document [facility] Family [place] [address] ProviderLucy MD [address] [place] [address] Social History Tobacco Use Types Packs/Day Years [...] filedocumented in this encounter Care Teams Senior Bi Architect Relationship Specialty Start Date End Date Carl Patton MD [address] [place] [address] PCP - General Family Medicine 06/03/23 documented as of this encounter
--- OUTSIDE RECORDS SUMMARY | 2024-11-05 04:51 | XMS_ITS | Encounter Summary ---
Author Organization [employer] Address [address] [place] [address] Care Team Providers Care Electric Range Assembler Name Role Phone Carl Patton MD Primary Care Provider [phone] Encounter Details Date Type Department Care Team (Late st Contact Info) Description 12/30/2020 Transcribed Document [facility] [place] Family Medicine [facility] [place] [address] ProviderLucy MD [address] [place] [address] [id number] Social History Tobacco Use Types Packs/Day Years Used Date Smoking Tobacco: Never Assessed Sex and Gender Information Value Date Recorded Sex Assigned at Not on file Legal Sex Male 5:20 PM CDT Gender Identity Not on file Sexual Orientation Not on file documented as of this encounter Miscellaneous Notes * Cerner Conversion Note - Lucy ProviderMD - 12/30/2020 7:09 PM CDT [facility] [place] [address] [place] [address] Visit Date/Time: 12/30/2020 19:09:58 МАРИНА HALL The above patient was seen in the hospital today and needs to be excused from work/school until Return to Work/School Date: 01/05/2021 Electronically signed by Charlene [facility] Conversion Supervisor Histology Cerner at 08/31/2022 10:41 PM CDT documented in this encounter Plan of Treatment Not on file documented as of this encounter Visit Diagnoses Not on filedocumented in this encounter Care Teams Electric Range Assembler Relationship Specialty Start Date End Date Carl Patton MD [address] [place] [address] PCP - General Family Medicine 06/03/23 documented as of this encounter
--- OUTSIDE RECORDS SUMMARY | 2024-11-05 04:52 | XMS_ITS | Encounter Summary ---
Author Organization [employer] Address [address] [place] [address] Care Team Providers Care Freight Caller Name Role Phone Carl Patton MD Primary Care Provider [phone] Reason for Referral * CAT Scan (Routine) - Closed Specialty Diagnoses / Procedures Referred By Contac t Referred To Contact Radiology Diagnoses Chronic kidney disease, unspecified CKD stage Procedures CTA abdomen & pelvis John Douglas MD [address] [place] [address] Phone: tel: fax: Referral ID Status Reason Start Date Expiration Date Visits Re quested Visits Authorized [id number] Closed 03/22/2024 04/20/2024 1 1 Encounter Details Date Type Department Care Team (Late st Contact Info) Description 03/22/2024 Outside Orders [facility] Central Scheduling [address] [place] [address] John Douglas MD [address] [place] [address] Chronic kidney disease, unspecified CKD stage (Primary [...] [facility] No 06/03/2023 Do you [...] Primary documented in this encounter Care Teams Freight Caller Relationship Specialty Start Date End Date Carl Patton MD [address] [place] [address] PCP - General Family Medicine 06/03/23 documented as of this encounter
--- OUTSIDE RECORDS SUMMARY | 2024-11-05 04:52 | XMS_ITS | Clinical Summary ---
Author Organization [facility] Address [address] [place], [place] [id number] Phone [email or web address] Care Team Providers Care Community Chest Officer Name Role Phone Noah Wagner Primary Care Provider [phone] Allergies No known active allergies Medications desipramine [...] Tobacco use disorder 04/12/2007 Overview (10/12/2017): Immunizations Immunization Administration Dates Next Due Tdap (ADACEL BOOSTRIX) [...] 63 12/26/2023 5:50 AM EDT Temperature 36.9 C (98.4 F) 12/26/2023 5:50 AM EDT Respiratory Rate 18 12/26/2023 5:50 AM EDT [...] Exam 09/18/1981 Hep B Infection Screening - Triple Screen 09/18/1981 Colorectal Cancer Screening 09/18/1993 Covid-19 Immunization ( season) 2024 08/20/2020 Influenza Immunization (Season Ended) 2025 02/18/2022, 02/25/2021, 03/04/2020, Additional history exists Tetanus Diphtheria and Pertussis Immunization (5 - Td or Tdap) 12/12/2031 12/11/2021, [...] OPT OUT NO COPAY NB Care Teams Community Chest Officer Relationship Specialty Start Date End Date Noah Wagner[address] [address] PCP - General Family Medicine 04/07/20
--- OUTSIDE RECORDS SUMMARY | 2024-11-05 04:52 | XMS_ITS | Encounter Summary ---
Author Organization [facility] [employer] Address [address] [place] [address] Care Team Providers Care Websphere Process Server Developer Name Role Phone Carl Patton MD Primary Care Provider [phone] Encounter Details Date Type Department Care Team (Late st Contact Info) Description 07/06/2021 Transcribed Document [facility] [place] [address] ProviderLucy MD [address] [place] [address] Social History Tobacco Use Types Packs/Day Years Used Date Smoking Tobacco: Never Assessed Sex and Gender Information Value Date Recorded Sex Assigned at Not on file Legal Sex Male 5:20 PM CDT Gender Identity Not on file Sexual Orientation Not on file documented as of this encounter Miscellaneous Notes * Cerner Conversion Note - Historical ProviderMD - 07/06/2021 12:08 PM DIGITAL ARCHIVIST Electronically signed by Charlene [facility] Conversion Caustic Loader Cerner at 08/31/2022 10:30 PM CDT documented in this encounter Plan of Treatment Not on file documented as of this encounter Visit Diagnoses Not on filedocumented in this encounter Care Teams Websphere Process Server Developer Relationship Specialty Start Date End Date Carl Patton MD [address] [place] [address] PCP - General Family Medicine 06/03/23 documented as of this encounter
--- OUTSIDE RECORDS SUMMARY | 2024-11-05 04:52 | XMS_ITS | Data Portability ---
Author Organization [facility] TERESA Ventura Address [address] [place] [id number] Assessment No assessment recorded. Plan of Treatment [...] SNOMED-CT Code Diagnosis ICD10 Code Diagnosis Note [id number] ОЛЕГ RODRIGUEZ MD [facility] [address] [place] [id number] 1 09/20/2018 11:04:24 09/20/2018 16:26:54 Health Concerns Section Related Observation LastModified by Organization Detai ls LastModified Time None Recorded Concern Status LastModified by Organization Details LastModified Time None Recorded Advance Directives Directive None Recorded Payers Insurance Date Sequence Insurance Name Policy Number Policy Spencer Covered Member ID Spencer Member ID Guarantor Name 06/10/2023 1 [place] [id number] Arjun Melton [id number] Arjun Melton 09/20/2018 [facility] [employer] (BA) Arjun Melton [id number] Arjun Melton
--- OUTSIDE RECORDS SUMMARY | 2024-11-05 04:52 | XMS_ITS | Referral Summary ---
Author Organization [employer] Address [address] [place] [address] Care Team Providers Care Manager Of Hospital Name Role Phone Carl Patton MD Primary Care Provider [phone] Encounters Date Type Department Care Team Description 09/25/2024 Refill [facility] Cardiology [address] [place] [address] Helena Romero MD 09/21/2024 Refill [facility] Cardiology [address] [place] [address] Helena Romero MD 08/30/2024 Refill [facility] Cardiology [address] [place] [address] Helena Romero MD from Last 3 Months Allergies No known active allergies Medications lisinopriL (PRINIVIL,ZESTRI L) 10 MG tablet Take 1 tablet (10 mg total) by mouth daily. 05/30/2023 Active famotidine (PEPCID) 40 MG tablet Take 1 tablet (40 mg total) by mouth daily. 04/19/2023 Active acetaminophen (TYLENOL) 325 MG tablet Take by mouth every 6 (six) hours if needed. Active aspirin 81 MG EC tablet Take 1 tablet (81 mg total) by mouth daily. 03/03/2023 Active ranolazine (RANEXA) 500 MG 12 hr tablet Take 1 tablet (500 mg total) by mouth 2 (two) times daily. 180 tablet 06/24/2023 Active atorvastatin (LIPITOR) 80 MG tablet Take 1 tablet (80 mg total) by mouth nightly. 90 tablet 3 06/24/2023 Active clopidogreL (PLAVIX) 75 mg tablet Take 1 tablet (75 mg total) by mouth daily. 90 tablet 3 06/24/2023 Active metoprolol succinate (TOPROL-XL) 50 MG 24 hr tablet Take 1 tablet (50 mg total) by mouth daily. 90 tablet 3 06/24/2023 Active isosorbide mononitrate (IMDUR) 30 MG 24 hr tablet Take 1 tablet (30 mg total) by mouth every morning. 90 tablet 3 06/24/2023 Active Active Problems Problem Noted Date Diagnosed [...] place to sleep or slept in a long term (including now)? No 06/04/2023 Utilities Answer Date [...] Do you speak a language other than Beninese at [facility]? No 06/03/2023 Do you want help with [...] 73 06/24/2023 1:24 PM EST Temperature 36.7 C (98.1 F) 06/07/2023 1:50 PM EST Respiratory Rate 17 06/07/2023 1:50 PM EST [...] - 249 mg/dL 06/04/2023 9:[address] [facility] Cholesterol 235(H) 0 - 199 mg/dL 06/04/2023 9:[address] [facility] Comment: 200 to 239 mg/dL = Moderate (borderline) >239 mg/dL = High HDL Cholesterol 55 >=40 mg/dL 06/04/2023 9:[address] [facility] Comment: >=60 mg/dL = Desirable <40 mg/dL = Increased Risk All other components are listed individually or are calculations VLDL Cholesterol 23.4 5 - 40 mg/dL 06/04/2023 9:[address] [facility] Cholesterol/HDL ratio 4.3(H) 0.0 - 3.2 06/04/2023 9:[address] [facility] LDl/HDL Ratio 3 0 - 4 06/04/2023 9:[address] [facility] RISK COMP 4 06/04/2023 9:21 AM [facility] LDL Cholesterol, Calculated 157(H) 0 - 99 mg/dL 06/04/2023 9:21 AM [facility] Blood Venipuncture / Unknown 06/04/2023 8:35 AM EST 06/04/2023 8:53 AM EST Matilde Welch MD LAB BLOOD ORDERABLES Sharyn bhakta Result [facility] [address] [phone] from Last 3 Months or Most Recently Relevant to Health Maintenance Insurance [employer] K12 CROSS/BLUE SHIELD Advance Directives For more information, please contact: [phone] * Full Code (Latest Code Status on File) Date Activated Date Inactivated Comments 06/06/2023 12:34 PM 06/07/2023 4:41 PM * Full Code Date Activated Date Inactivated Comments 06/03/2023 10:28 AM 06/06/2023 12:34 PM Care Teams Manager Of Hospital Relationship Specialty Start Date End Date Carl Patton MD [address] [place] [address] PCP - General Family Medicine 06/03/23
--- OUTSIDE RECORDS SUMMARY | 2024-11-05 04:52 | XMS_ITS | Clinical Summary ---
Author Organization [facility] Address [address] [place] [address] Care Team Providers Care Nursing Attendant Name Role Phone Noah Wagner MD Primary Care Provider [phone] Social History Tobacco Use Types Packs/Day Years Used Date Smoking Tobacco: Never Assessed Sex and Gender Information Value Date Recorded Sex Assigned at Not on file Legal Sex Male 8:26 PM EDT Gender Identity Not on file Sexual Orientation Not on file Plan of Treatment Upcoming Encounters Date Type Department Care Team (Late st Contact Info) Description 12/04/2024 9:50 AM EDT Consult [facility] [address] [place] [address] Bhupinder Ardon MD [address] [place] [address] Health Maintenance Due Date Last Done Comments [facility]-Depression Screening 1965 [facility]-HIV Screening 1965 [facility]-Hepatitis C Screening 1965 [facility]-Infant/Child/Adol SDOH Screenings 1965 [facility]- SDOH Screenings 09/18/1981 [facility]-Adult SDOH Screenings 09/18/1981 CT Colonography 09/18/2008 Colonoscopy 09/18/2008 FIT-DNA 09/18/2008 FIT 09/18/2008 FOBT 09/18/2008 Sigmoidoscopy 09/18/2008 [facility]-Colorectal Cancer Screening 09/18/2008 [id number] Vaccine ( season) 2024 08/20/2020 [facility]-Influenza Vaccine (Season Ended) 2025 02/18/2022, 02/25/2021, 03/04/2020, Additional history exists [facility]-DTaP,Tdap,and Td Vaccines (5 - Td or Tdap) 12/12/2031 12/11/2021, 04/13/2021, 07/25/2019, Additional history exists [facility]-RSV Vaccine: 60+ Years or (1 - 1-dose 75+ series) 09/18/2038 [facility]-Pneumococcal Vaccine: 50+ Years Completed 08/12/2022, 07/30/2016 [facility]-Zoster Vaccines Completed 11/01/2022, HPV Vaccines Aged Out No longer eligi ble based on patient's age to complete this topic [facility]-HIB Vaccines Aged Out No longer e [...] patient's age to complete this topic Insurance MICK Care Teams Nursing Attendant Relationship Specialty Start Date End Date Noah Wagner MD [address] [place] [address] [address] [place] [address] PCP - General 09/26/20
--- OUTSIDE RECORDS SUMMARY | 2024-11-05 04:52 | XMS_ITS | Encounter Summary ---
Author Organization [employer] Address [address] [place] [address] Care Team Providers Care Hadoop Engineer Name Role Phone Stanislaw Martinez MD Primary Care Provider [phone] Encounter Details Date Type Department Care Team (Late st Contact Info) Description 07/06/2021 Transcribed Document [facility] [place] Family Medicine [address] [place] [address] ProviderLucy MD [address] [place] [address] Social History Tobacco Use Types Packs/Day Years Used Date Smoking Tobacco: Never Assessed Sex and Gender Information Value Date Recorded Sex Assigned at Not on file Legal Sex Male 5:20 PM CDT Gender Identity Not on file Sexual Orientation Not on file documented as of this encounter Miscellaneous Notes * Cerner Conversion Note - Lucy Scott MD - 07/06/2021 12:08 PM PLANER SETTER [address] [place] [address] PERSON INFORMATION Name ISABEL МАРИНА C Age 55 Years 1965 Sex Male Language Montenegrin PCP STANISLAW MARTINEZ [facility] Marital Status Single Med Service Emergency Medicine Acct# Arrival 01/12/2021 11:39:00 Visit Reason Chest pain; CP SINCE TUESDAY Acuity 2 - Emergent LOS 000 06:23 Depart Date: 01/12/21 06:02 PM Address: [address] [place] [address] [place] [address] Comment: PROVIDER INFORMATION DIAGNOSIS PHYS DOC NOTES [...] When: STANISLAW MARTINEZ [address] [facility] [address] [place] [address] Business (1) Within 2 to 3 days Comment: Electronically signed by Srinivas Chang Conversion Patient Relations Coordinator Cerner at 08/31/2022 10:41 PM CDT documented in this encounter Plan of Treatment Not on file documented as of this encounter Visit Diagnoses Not on filedocumented in this encounter Care Teams Hadoop Engineer Relationship Specialty Start Date End Date Stanislaw Martinez MD [address] [place] [address] PCP - General Family Medicine 06/03/23 documented as of this encounter
--- OUTSIDE RECORDS SUMMARY | 2024-11-05 04:52 | XMS_ITS | Encounter Summary ---
Author Organization [employer] Address [address] [facility] [place] [address] Care Team Providers Care Package Designer Name Role Phone Carl Patton MD Primary Care Provider [phone] Encounter Details Date Type Department Care Team (Late st Contact Info) Description 01/12/2021 Transcribed Document [facility] Family Medicine [facility] [place] [address] ProviderLucy MD [address] [place] [address] Social History Tobacco Use Types Packs/Day Years [...] Performed On: 01/12/2021 11:56 EDT by SONDRA BAEAZ RN ED Triage Across the Room Chief Complaint : Pt presents with chest pain since , had stent placed on tuesday by Nick. CP woke pt up today. nitro taken at 0530am with relief. SOA on exertion Triage Date/Time : 01/12/2021 11:56 EDT SONDRA BAEZA RN - 01/12/2021 11:56 EDT DCP GENERIC CODE Tracking Acuity : 2 - Emergent Tracking Group : [facility] ED SONDRA BAEZA RN - 01/12/2021 [...] 11:59:15 EDT) Problems(Active) Allergic rhinitis (SNOMED CT :590530848 ) Name of Problem: Allergic rhinitis ; Recorder: COLLIN AVERY RN; Confirmation: Confirmed ; Classification: Patient Stated ; Code: 432010638 ; Contributor System: Txt4 ; Last Updated: 12/30/2020 8:57 EDT ; Life Cycle Date: 12/30/2020 ; Life Cycle Status: Active ; Vocabulary: SNOMED CT At risk for sleep apnea (IMO :42992542 ) Name of Problem: At risk for sleep apnea ; Recorder: SYSTEM, SYSTEM; Confirmation: Confirmed ; Classification: Medical ; Code: 38131949 ; Last Updated: 12/30/2020 9:12 EDT ; Life Cycle Date: 12/30/2020 ; Life Cycle Status: Active ; Vocabulary: IMO Chest pain (SNOMED CT :33845514 ) Name of Problem: Chest pain ; Recorder: COLLIN AVERY RN; Confirmation: Confirmed ; Classification: Patient Stated ; Code: 15203178 ; Contributor System: PowerChart ; Last Updated: 12/30/2020 9:00 EDT ; Life Cycle Date: 12/30/2020 ; Life Cycle Status: Active ; Vocabulary: SNOMED CT COPD, moderate (SNOMED CT :078247245 ) Name of Problem: COPD, moderate ; Recorder: NEERAJ HAYWARD RN; Confirmation: Confirmed ; Classification: Patient Stated ; Code: 294800455 ; Contributor System: PowerChart ; Last Updated: 09/05/2014 7:33 EDT ; Life Cycle Date: 09/05/2014 ; Life Cycle Status: Active ; Vocabulary: SNOMED CT Fatigue (SNOMED CT :402888112 ) Name of Problem: Fatigue ; Recorder: COLLIN AVERY RN; Confirmation: Confirmed ; Classification: Patient Stated ; Code: 179602329 ; Contributor System: PowerChart ; Last Updated: 12/30/2020 9:01 EDT ; Life Cycle Date: 12/30/2020 ; Life Cycle Status: Active ; Vocabulary: SNOMED CT GERD - Gastro-esophageal reflux disease (SNOMED CT :0147226259 ) Name of Problem: GERD - Gastro-esophageal reflux disease ; Recorder: COLLIN AVERY RN; Confirmation: Confirmed ; Classification: Patient Stated ; Code: 3617155028 ; Contributor System: PowerChart ; Last Updated: 12/30/2020 8:58 EDT ; Life Cycle Date: 12/30/2020 ; Life Cycle Status: Active ; Vocabulary: SNOMED CT HTN (hypertension) (SNOMED CT :1771557135 ) Name of Problem: HTN (hypertension) ; Recorder: FAUSTINO BARNETT MD; Confirmation: Confirmed ; Classification: Medical ; Code: 9977502333 ; Contributor System: PowerChart ; Last Updated: 08/27/2014 11:22 EDT ; Life Cycle Date: 08/27/2014 ; Life Cycle Status: Active ; Responsible Provider: FAUSTINO BARNETT MD; Vocabulary: SNOMED CT Shortness of breath (SNOMED CT :424333259 ) Name of Problem: Shortness of breath ; Recorder: COLLIN AVERY RN; Confirmation: Confirmed ; Classification: Patient Stated ; Code: 614595417 ; Contributor System: Txt4 ; Last Updated: 12/30/2020 9:01 EDT ; Life Cycle Date: 12/30/2020 ; Life Cycle Status: Active ; Vocabulary: SNOMED CT Smoker (SNOMED CT :411770503 ) Name of Problem: Smoker ; Recorder: COLLIN AVERY RN; Confirmation: Confirmed ; Classification: Patient Stated ; Code: 777629258 ; Contributor System: Txt4 ; Last Updated: 12/30/2020 8:57 EDT ; Life Cycle Date: 12/30/2020 ; Life Cycle Status: Active ; Vocabulary: SNOMED CT Diagnoses(Active) Chest pain Date: 01/12/2021 ; Diagnosis Type: Reason For Visit ; Confirmation: Complaint of ; Clinical Dx: Chest pain ; Classification: Medical ; Clinical Service: Non-Specified ; Code: PNED ; Probability: 0 ; Diagnosis Code: [id number] ED Height and Weight Height Source : Stated Height Entry Format : [place] Height, Feet : 5 ft(Converted to: 152 cm, 60 Inch) Height, Inches : 8 Inch(Converted to: 0 ft 8 Inch, 20.32 cm) Clinical Height : 172.72 cm Weight Source, ED : Critical estimated dosing weight Weight Entry Format : [place] Weight, Pounds : 165 lb Clinical Dosing Weight : 75 kg Body Surface Area (BSA) : 1.89 m2 Body Mass Index : 25.1 kg/m2 (HI) [place] Body Weight (IBW) : 67.45 kg SONDRA [...] on filedocumented in this encounter Care Teams Package Designer Relationship Specialty Start Date End Date Carl Patton MD [address] [place] [address] PCP - General Family Medicine 06/03/23 documented as of this encounter
--- OUTSIDE RECORDS SUMMARY | 2024-11-05 04:52 | XMS_ITS | Encounter Summary ---
Author Organization [employer] Address [facility] [place] [address] Care Team Providers Care Starcher And Tenter Range Feeder Name Role Phone Carl Patton MD Primary Care Provider [phone] Encounter Details Date Type Department Care Team (Late st Contact Info) Description 12/30/2020 Transcribed Document [facility] [place] [address] ProviderLucy MD [address] [place] [id number] Social History Tobacco Use Types Packs/Day Years [...] Source : Measured Height Entry Format : [place] Height, Feet : 5 ft(Converted to: 152 cm, 60 Inch) Height, Inches : 8 Inch(Converted to: 0 ft 8 Inch, 20.32 cm) Clinical Height : 172.72 cm Weight Source : Standing scale Weight Entry Format : [place] Clinical Dosing Weight : 75 kg Weight, Pounds : 165 lb Weight, Ounces : 0 oz Body Surface Area (BSA) : 1.89 m2 Body Mass Index : 25.1 kg/m2 (HI) [place] Body Weight : 67 kg COLLIN AVERY [...] COLLIN AVERY RN - 12/30/2020 9:06 EDT [place] Suicide Severity Rating Scale (C-SSRS) CSSRS Past [...] Info Legal Guardian : No Support Person/Patient Cooler Tender : No Want Family/Rep/Phys Notified of Admit : No Emergency Contact #1 : [place] Emergency Contact #1 Emergency Contact #1 Relationship : girlfriend Emergency Contact #2 : x Emergency Contact #2 Phone Number : x Emergency Contact #2 Relationship : x Primary Language : [place] Citizen Preferred Communication Mode : Verbal Communication Barrier : None Gas Leak Tester Needed : COLLIN Rousseau RN - 12/30/2020 [...] Scale Risk Level : 0-24 Low Risk [place] Interventions : Adequate lighting, Assistive devices [...] on filedocumented in this encounter Care Teams Starcher And Tenter Range Feeder Relationship Specialty Start Date End Date Carl Patton MD [address] [place] [address] PCP - General Family Medicine 06/03/23 documented as of this encounter
--- OUTSIDE RECORDS SUMMARY | 2024-11-05 04:52 | XMS_ITS | Encounter Summary ---
Author Organization [employer] Address [address] [place] [id number] Care Team Providers Care Management Intern Name Role Phone Carl Patton MD Primary Care Provider [phone] Encounter Details Date Type Department Care Team (Late st Contact Info) Description 12/30/2020 Transcribed Document [facility] [place] [facility] [place] [address] ProviderLucy MD [address] [place] [id number] Social History Tobacco Use Types Packs/Day Years [...] on filedocumented in this encounter Care Teams Management Intern Relationship Specialty Start Date End Date Carl Patton MD [address] [place] [address] PCP - General Family Medicine 06/03/23 documented as of this encounter
--- OUTSIDE RECORDS SUMMARY | 2024-11-05 04:52 | XMS_ITS | Clinical Summary ---
Author Organization [employer] Address [address] [place] [address] Care Team Providers Care Manager Packaging Name Role Phone Carl Patton MD Primary Care Provider [phone] Allergies No known active allergies Medications lisinopriL [...] Type Department Care Team Description 09/25/2024 Refill [facility] Cardiology [address] [place] [address] Helena Romero MD 09/21/2024 Refill [facility] Cardiology [address] [place] [address] Helena Romero MD 08/30/2024 Refill [facility] Cardiology [address] [place] [address] Helena Romero MD from Last 3 Months Social History Tobacco [...] Never 06/03/2023 How often does anyone, simran smis family and friends, insult or talk down [...] speak a language other than Hungarian at [facility]? No 06/03/2023 Do you want help [...] 09/18/1978 Hepatitis C Screening 09/18/1981 COVID-19 VACCINE (2023-2 5 season) 2024 08/20/2020 Tobacco Cessation Counseling and Screening (12+) 06/24/2024 06/24/2023 Influenza Vaccine (Season Ended) 2025 03/04/20 20 Lipid Panel 06/04/2026 06/04/2023, 06/03/2023 DTAP/TDAP/TD VACCINES (5 - T d or Tdap) 12/12/2031 12/11/2021, 04/13/2021, 07/25/2019, Additional history exists Respiratory Syncytial Virus (RSV) Adult or (1 - 1-dose 75+ series) 09/18/2038 Pneumococcal 50+ years Completed 08/12/2022, 2016 Shingles Vaccine (Zoster) Completed 11/01/2022, Procedures Procedure Name Priority Date/Time Associated Diagnosis Comments LIPID PANEL STAT 06/04/2023 8:35 AM EST from Last 3 Months or Most Recently Relevant to Health Maintenance Results * (ABNORMAL) Lipid panel (06/04/2023 8:35 AM EST) Triglycerides 117 0 - 249 mg/dL 06/04/2023 9:21 AM [facility] Cholesterol 235(H) 0 - 199 mg/dL 06/04/2023 9:21 AM [facility] Comment: 200 to 239 mg/dL = Moderate (borderline) >239 mg/dL = High HDL Cholesterol 55 >=40 mg/dL 06/04/2023 9:21 AM [facility] Comment: >=60 mg/dL = Desirable <40 mg/dL = Increased Risk All other components are listed individually or are calculations VLDL Cholesterol 23.4 5 - 40 mg/dL 06/04/2023 9:21 AM [facility] Cholesterol/HDL ratio 4.3(H) 0.0 - 3.2 06/04/2023 9:21 AM [facility] LDl/HDL Ratio 3 0 - 4 06/04/2023 9:21 AM [facility] RISK COMP 4 06/04/2023 9:21 AM [facility] LDL Cholesterol, Calculated 157(H) 0 - 99 mg/dL 06/04/2023 9:21 AM [facility] Blood Venipuncture / Unknown 06/04/2023 8:35 AM EST 06/04/2023 8:53 AM EST Matilde Welch MD LAB BLOOD ORDERABLES Sharyn bhakta Result [facility] [address] [place] [address], [facility] [phone] from Last 3 Months or Most Recently Relevant to Health Maintenance Insurance [place] [id number] BLUE CROSS/BLUE SHIELD Advance Directives For more information, please contact: [phone] * Full Code (Latest Code Status on File) Date Activated Date Inactivated Comments 06/06/2023 12:34 PM 06/07/2023 4:41 PM * Full Code Date Activated Date Inactivated Comments 06/03/2023 10:28 AM 06/06/2023 12:34 PM Care Teams Manager Packaging Relationship Specialty Start Date End Date Carl Patton MD [address] [place] [address] PCP - General Family Medicine 06/03/23
--- OUTSIDE RECORDS SUMMARY | 2024-11-05 04:52 | XMS_ITS | Patient Health Record ---
Author Organization [facility] Address [address] [facility] [address] [facility] [address] [place] [id number] Care Team Providers Care Prepper Name Role Phone Elodia Patton Primary Care Provider [phone] Shawn Mcgee Unavailable [phone] Tank Shadna Unavailable [phone] Allergies Allergen (clinical drug ingredient) Drug/Non Drug [...] Interpretation:Normal Performing Lab: Notes/Report: Test performed by [facility] [address] [place], [place] [address] [place] , [address], [place] [address] Marcus Gunderson MD, Manager Filter CLIA: [id number] Allergen, Food, Alpha Galactose (Alpha-Gal) IgE <0.1 <0.10-0.34 kU/L Allergy Footnotes Reviewed date:08/08/2024 05:14:55 PM Interpretation:Normal Performing Lab: Notes/Report: Test performed by [facility], [address] , [place] [address] Marcus Gunderson MD, Manager Filter CLIA: [id number] Allergy Footnotes SEE COMMENT Reference Ranges and [...] >=50.00 kU/L Very high level of sensitization CBC Venipuncture (in house) Reviewed date:10/26/2024 10:54:13 [...] Interpretation:191 Performing Lab: Notes/Report: Test performed by [facility] [address] [place] [address] , [place] [address] Marcus Gunderson MD, Manager Filter CLIA: [id number] Amylase 191 28-100 U/L P-Comprehensive Metabolic Pa quita (CMP) Reviewed date:10/26/2024 10:54:13 AM Interpretation:Na 132, Chl 93, Creat 1.72, Parmjit 10.8, eGFR 45 Performing Lab: Notes/Report: Test performed by [facility] [address] [place] [address] , [place] [address] Marcus Gunderson MD, Manager Filter CLIA: [id number] Sodium 132 135-145 mmol/L Potassium 4.6 3.5-5.3 [...] 0.3 <0.2-1.2 mg/dL A/G Ratio 2.0 1.1-2.5 W-F-Ifqqkiqc Protein (CRP) Reviewed date:10/26/2024 10:54:13 AM Interpretation:Normal Performing Lab: Notes/Report: Test performed by [facility] [address] , [place] [address] Marcus Gunderson MD, Manager Filter CLIA: [id number] C-Reactive Protein (CRP) 0.26 <0.50 mg/dL P-Sed Rate (ESR) Reviewed date:10/26/2024 10:54:13 AM Interpretation:Normal Performing Lab: Notes/Report: Test performed by [facility] [address] , [facility] [place] [address] Marcus Gunderson MD, Manager Filter CLIA: [id number] Erythrocyte Sedimentation Rate (ESR), Automated 5 <21 mm/hr P-Lipase Reviewed date:10/26/2024 10:54:13 AM Interpretation:154.1 Performing Lab: Notes/Report: Test performed by [facility] [address] , [place] [address] Marcus Gunderson MD, Manager Filter CLIA: [id number] Lipase 154.1 13.0-60.0 u/L P-TSH reflex to FT4 Reviewed date:10/26/2024 10:54:13 AM Interpretation:Normal Performing Lab: Notes/Report: Test performed by [facility] [address] , [place] [address] Marcus Gunderson MD, Manager Filter CLIA: [id number] TSH reflex to FT4 1.88 0.43-5.25 mU/L H-Iron Reviewed date:01/10/2024 10:40:14 AM Interpretation: Performing Lab: Notes/Report: H-Ferritin Reviewed date:01/10/2024 10:40:01 AM Interpretation: Performing Lab: Notes/Report: H-CMP Reviewed date:01/10/2024 10:39:13 AM Interpretation: Performing Lab: Notes/Report: H-CBC Reviewed date:01/10/2024 10:38:58 AM Interpretation: Performing Lab: Notes/Report: Urinalysis - Inhouse Reviewed date:08/21/2024 12:48:50 PM [...] date:10/23/2024 03:27:37 PM Interpretation: Performing Lab: Notes/Report: CBC Venipuncture (in house) Reviewed date:11/30/2023 10:24:51 AM Interpretation: Performing Lab: Notes/Report: lymph 7.7 15 - 50 mid 6.4 2 - 15 gran 72.3 35 - 80 rbc 4.38 3.5 - 5.5 hgb 12.1 11.5 - 16.5 hct 36.1 35 - 55 mcv 82.4 75 - 100 mch 27.6 25 - 35 mchc 33.5 31 - 38 platlet 473 100 - 400 P-Vitamin B12 Reviewed date:11/30/2023 10:24:51 AM Interpretation:Normal Performing Lab: Notes/Report: Test performed by [facility] [address] [place] [address] , [address], [place] [address] Marcus Gunderson MD, Manager Filter CLIA: [id number] Vitamin B12 9071 027-2220 pg/mL P-Comprehensive Metabolic Pa quita (CMP) Reviewed date:11/30/2023 10:24:51 AM Interpretation:K+ 3.4, Cr 1.69, gfr 46 Performing Lab: Notes/Report: Test performed by [facility] [address] [place] [address] , [address], [place] [address] Marcus Gunderson MD, Manager Filter CLIA: [id number] Sodium 137 135-145 mmol/L Potassium 3.4 3.5-5.3 mmol/L Chloride 99 97-108 mmol/L CO2 26 22-32 mmol/L Glucose 89 65-99 mg/dL BUN 13 8-23 mg/dL Creatinine 1.69 0.70-1.30 mg/dL Calcium 9.5 8.6-10.4 mg/dL eGFR by Creatinine 46 >59 mL/min/1.73m2 Protein 6.3 6.0-8.3 g/dL Albumin 4.3 3.5-5.3 g/dL Alkaline Phosphatase 53 40-129 IU/L ALT (SGPT) 8 <5-55 IU/L AST (SGOT) 10 <5-46 IU/L Bilirubin, Total <0.2 <0.2-1.2 mg/dL A/G Ratio 2.1 1.1-2.5 mg/dL P-Vitamin D 25-Hydroxy Reviewed date:11/30/2023 10:24:51 AM Interpretation:49.8 Performing Lab: Notes/Report: Test performed by [facility] [address] [place] [address] , [address], [place] [address] Marcus Gunderson MD, Manager Filter CLIA: [id number] Vitamin D 25-Hydroxy 49.8 30.0-100.0 ng/mL Interpretation of Vitamin D 25 OH: < 20 ng/mL - Deficiency 20 - 29 ng/mL - Insufficiency 30 - 100 ng/mL - Sufficiency > 100 ng/mL - Super-therapeutic- toxicity may occur above this level. Clinical correlation required. P-Ferritin Reviewed date:11/30/2023 10:24:51 AM Interpretation:19.8 Performing Lab: Notes/Report: Test performed by [facility] [address] [place] [address] , [address], [place] [address] Marcus Gunderson MD, Manager Filter CLIA: [id number] Ferritin 19.8 30.0-400.0 ng/mL P-Iron Reviewed date:11/30/2023 10:24:51 AM Interpretation:20 Performing Lab: Notes/Report: Test performed by [facility], [address] , [address], [place] [address] Marcus Gunderson MD, Manager Filter CLIA: [id number] Iron 20 59-158 ug/dL H-Food Allergy Profile Reviewed date:04/25/2024 09:05:24 AM Interpretation:Negative Performing Lab: Notes/Report: CLASSDESC Comment . Levels of Specific IgE Class Description of Class ----- < 0.10 0 Negative 0.10 - 0.31 0/I Equivocal/Low 0.32 - 0.55 I Low 0.56 - 1.40 II Moderate 1.41 - 3.90 III High 3.91 - 19.00 IV Very High 19.01 - 100.00 V Very High >100.00 Very High EGGWHT <0.10 Class 0 kU/L MILK <0.10 Class 0 kU/L CODFISH <0.10 Class 0 kU/L WHEAT <0.10 Class 0 kU/L CORN <0.10 Class 0 kU/L PEANUT <0.10 Class 0 kU/L SOYBEAN <0.10 Class 0 kU/L SHRIMP <0.10 Class 0 kU/L CLAM <0.10 Class 0 kU/L WALNUT <0.10 Class 0 kU/L SCALLOP <0.10 Class 0 kU/L SESAMEP <0.10 Class 0 kU/L Performed at: [facility] [id number] Secretarial Stenographer: Aleida Russell MD, Phone: [phone] H-Urea Breath Test Reviewed date:04/25/2024 09:05:13 AM Interpretation:Negative Performing Lab: Notes/Report: Patient Height (inches): 58.00 Patient Weight (pounds): 142 HPYBREATHR Negative Negative Performed at: [facility] [id number] Secretarial Stenographer: Jaime Jung PhD, Phone: [phone] P-Basic Metabolic Panel (BMP ) Reviewed date:01/19/2024 08:27:07 AM Interpretation: Performing Lab: Notes/Report: Test performed by [facility] [address] [place] [address] , [address], [place] [address] Marcus Gunderson MD, Manager Filter CLIA: [id number] Sodium 138 135-145 mmol/L Potassium 4.1 3.5-5.3 mmol/L Chloride 99 97-108 mmol/L CO2 27 22-32 mmol/L Glucose 106 65-99 mg/dL BUN 12 8-23 mg/dL Creatinine 1.66 0.70-1.30 mg/dL Calcium 9.1 8.6-10.4 mg/dL eGFR by Creatinine 47 >59 mL/min/1.73m2 H-Iron Reviewed date:01/12/2024 08:40:54 AM Interpretation:37 Performing Lab: Notes/Report: SHARE RESULTS OF CMP WITH DONN MANNING FE 37 49-181 ug/dL H-Ferritin Reviewed date:01/12/2024 08:40:54 AM Interpretation:10.1 Performing Lab: Notes/Report: SHARE RESULTS OF CMP WITH DONN MANNING NATY 10.1 17.9-464 ng/ml H-CMP Reviewed date:01/12/2024 08:40:54 AM Interpretation:N 133, cR 2.2, GFR 31, AST 15, ALT 9, PROT 6.1 Performing Lab: Notes/Report: SHARE RESULTS OF CMP WITH DONN MANINNG NA 133 136-145 mmol/L K 3.8 3.5-5.1 mmoL/L CL 101 98-107 mmol/L CO2 29 22.0-30.0 mmol/L GAP 6.8 5-15 mEq/L BUN 17 9-20 mg/dl CREATT 2.20 0.66-1.25 mg/dl GFRAA 37 >60 ML/MIN EGFR 31 >60 ml/min GLU 77 74-100 mg/dl CA 8.6 8.4-10.2 mg/dl BILIT 0.3 0.2-1.3 mg/dl AST 15 17-59 U/L ALT 9 12-78 U/L TP 6.1 6.3-8.2 g/dl ALB 3.6 3.5-5.0 g/dl GLOB 2.5 1.3-3.2 g/dL AGRATIO 1.4 1.1-1.8 ALP 47 38-126 U/L H-CBC Reviewed date:01/12/2024 08:40:54 AM Interpretation:rbc 4.21, hgb 11.6, hct 37.2, mchc 31.2, plt 477 Performing Lab: Notes/Report: WBC 8.5 4.8-10.8 K/mm3 RBC 4.21 4.60-6.20 M/mm3 HGB 11.6 14.1-18.0 g/dL HCT 37.2 42.0-52.0 % MCV 88.3 80-94 fl MCH 27.5 27.0-31.2 pg MCHC 31.2 31.8-35.4 g/dL RDW 16.1 11.5-17.5 % PLT 477 142-424 K/mm3 MPV 8.0 7.4-10.4 fl NE% 63.8 37.0-80.0 % LY% 21.7 10-50 % MO% 6.6 1.7-9.3 % EO% 6.8 0.1-12.0 % BA% 1.1 0.1-2.0 % NE# 5.4 1.8-7.8 K/mm3 LY# 1.8 0.7-4.5 K/mm3 MO# 0.6 0.1-1.0 K/mm3 EO# 0.6 0.0-0.4 K/mm3 BA# 0.1 0-0.2 K/mm3 Reason For Referral Reason Iron infusions due t o low iron level Diagnosis 1 Iron deficiency (E61 .1) [facility] Referring Provider First Name Shanda Referring Provider Last Name Tank Referring Provider Speciality Physician Vending Machine Coin Collector Referred Provider Specialty Hematology General Notes Dimple Berg 01/12/20 11:57:59 AM > faxed referral and labs to [facility] Oncology Referral Priority Routine Diagnosis 1 Esophageal dysphagia (R13.19) Referral Organization [facility] Referring Provider First Name Shanda Referring Provider Last Name Tank Referring Provider Speciality Physician Vending Machine Coin Collector Referred Provider Gastroenterology, . Referred Provider Specialty Gastroentero logy General Notes Shanda Fu 04/19 3:56:09 PM > Needs first available with Dr. Vinson.Morena Brynn 04/19/2024 4:04:05 PM > faxed to Morena Wallace Brynn 04/23/2024 10:39:20 AM > 05/02/2024 at 03:30pm Referral Priority Routine Medications Medication SIG (Take, Route, Frequency, Duration) Notes Start Date End Date Status Dymista 137-50 MCG/ACT 1 spray in each nostril Nasally Twice a day for 30 days 10/25/2024 Active Metoclopramide HCl 5 MG 1 tablet before meals Orally three times a day as needed for 30 days 08/20/2024 Not-Taking Voquezna 20 MG 1 tablet Orally Once a day for 30 day(s) Not-Taking Plavix 75 MG 1 tablet Orally Once a day for 30 day(s) Active Metoprolol Succinate ER 50 MG 1/2 tab Not-Taking Pramipexole Dihydrochloride 0.125 MG 1 tablet Orally Once a day for 90 days 10/25/2024 Active Pantoprazole Sodium 40 MG 1 tablet Orall y Once a day Not-Taking Iberogast - as directed Orally Not-Taking dexAMETHasone 2 MG 1 tablet Orally twic e a day for 5 days 10/25/2024 Active Irbesartan 150 MG 1 tablet Orally Once a day for 30 day(s) Active Isosorbide Mononitrate ER 60 MG 1 tablet in the morning Orally Once a day Not-Taking Librax 5-2.5 MG 1 capsule before cortney ls Orally Three times a day for 30 days 07/30/2024 Not-Taking amLODIPine Besylate 5 MG 1 tablet Orally Once a day for 90 days Not-Taking Nitroglycerin 0.4 MG 1 tab(s) sublingual ly every 5 minutes Active Sucralfate 1 GM 2 Orally Twice a day for 30 days 07/30/2024 Not-Taking Align - as directed Orally N ot-Taking Immunizations Vaccine Route Administration Date Status Comme nts Tetanus Tdap-Adacel (over 7yrs) Unknown 07/30/2016 Admi nistered Tetanus Tdap-Adacel (over 7yrs) Unknown 07/25/2019 Admi nistered Tetanus Tdap-Adacel (over 7yrs) Unknown 04/13/2021 Admi nistered Tetanus Tdap-Adacel (over 7yrs) Unknown 12/11/2021 Admi nistered Shingrix Unknown 08/12/2022 Administered Shingrix Unknown 11/01/2022 Administered Prevnar (PCV20) Unknown 08/12/2022 Administered PNEUMOVAX 23 VACCINE Unknown 07/30/2016 Administered Fluzone PF Quad (6-35 months) Unknown 02/08/2017 Admini stered Fluzone PF Quad (6-35 months) Unknown 02/25/2021 Admini stered Fluzone PF Quad (6-35 months) Unknown 02/18/2022 Admini stered COVID 19 Pfizer Unknown 08/20/2020 Administered Problems Problem Type SNOMED Code ICD Code Onset Dates Problem Status W/U Status Risk Notes Problem 45779035 Essential (prima ry) hypertension (I10) Active confirmed Problem Coronary arteriosclerosis (41675025) ASCVD (arteriosclerotic cardiovascular disease) (I25.10) Active confirmed Problem 40044951 Vitamin D defici ency (E55.9) Active confirmed Problem 557928043 Vitamin B12 defi ciency (E53.8) Active confirmed Problem 23636047 Essential hypert ension (I10) Active confirmed Problem 828738693 Hypertriglycerid emia (E78.1) Active confirmed Problem 90289211 NSTEMI (non-ST elevated myocardial infarction) (I21.4) Active confirmed Problem Dyspepsia (830273666) Dyspepsia (K30) Active confirmed Problem Dysphagia (70477024) Dysphagia (R13.10) Active confirmed Problem 819102006 Ischemic cardiomyopathy (I25.5) Active confirmed Problem 69692710 Chronic rhinitis (J31.0) Active confirmed Problem 33546499 Restless leg (G25.81) Active confirmed Problem 278441381 Renal insufficie ncy (N28.9) Active confirmed Problem 897789637 Chronic GERD (K21.9) Active confirmed Problem 44485574 Chronic obstruct alok pulmonary disease, unspecified COPD type (J44.9) Active confirmed Problem 896640960 GERD with esopha gitis (K21.0) Active confirmed Problem 430782772 Status post destiny nary artery stent placement (Z95.5) Active confirmed Problem 56576626 SMOOTH (obstructive sleep apnea) (G47.33) Active confirmed Problem 60792176 Hyperlipidemia, unspecified hyperlipidemia type (E78.5) Active confirmed Problem 514667920 Esophageal spasm (K22.4) Active confirmed Problem 986923214 Atherosclerosis of hughes coronary artery without angina pectoris, unspecified whether hughes or transplanted heart (I25.10) Active confirmed Problem 9800402 Chronic gastriti s without bleeding, unspecified gastritis type (K29.50) Active confirmed Problem 595340969 Esophageal dysmo tility (K22.4) Active confirmed Problem 94374866 Oropharyngeal dysphagia (R13.12) Active confirmed Problem 75661427 Bilateral hearin g loss, unspecified hearing loss type (H91.93) Active confirmed Problem 746331496 Renal artery blade nosis (I70.1) Active confirmed Problem 5566764 Gastritis withou t bleeding, unspecified chronicity, unspecified gastritis type (K29.70) Active confirmed Problem 401984910 Gastroesophageal reflux disease, unspecified whether esophagitis present (K21.9) Active confirmed Problem 315773579 Coronary artery disease involving hughes coronary artery of hughes heart with unstable angina pectoris (I25.110) Active confirmed Problem 795122299 Stage 3a chronic kidney disease (CKD) (N18.31) Active confirmed Vital Signs Heart Rate 97 /min 10/25/2024 Blood pressure diastolic 68 mm Hg 10/25/2024 Height 68.75 in 10/25/2024 Blood pressure systolic 112 mm Hg 10/25/2024 Weight 133 lbs 10/25/2024 BMI 19.78 kg/m2 10/25/2024 Encounters Encounter Location Date Provider Diagnosis [facility] [address] [facility] [address] [place] [id number] 11/23/2023 Shanda Fu Essential hypertensi on I10 ; Coronary artery disease involving hughes coronary artery of hughes heart with unstable angina pectoris I25.110 ; Chronic GERD K21.9 ; Dysphagia, unspecified type R13.10 ; Status post coronary artery stent placement Z95.5 ; Stage 3a chronic kidney disease (CKD) N18.31 ; Iron deficiency E61.1 ; Vitamin D deficiency E55.9 and Vitamin B12 deficiency E53.8 [facility] [facility] [place] [facility] [address] [place] [id number] 12/23/2023 Shanda Crowdy Essential hypertensi on I10 ; Stage 3a chronic kidney disease (CKD) N18.31 ; Iron deficiency E61.1 ; Dizziness R42 ; Elevated blood pressure reading R03.0 and Bilateral hearing loss, unspecified hearing loss type H91.93 [facility] [address] [place] [address] [place] [id number] 01/18/2024 Shanda Crowdy Renal insufficiency N28.9 [facility] [address] [place] [facility] [address] [place] [id number] 04/19/2024 Shanda Crowdy Nausea and vomiting in adult R11.2 ; Esophageal dysphagia R13.19 ; Esophageal spasm K22.4 and Gastritis without bleeding, unspecified chronicity, unspecified gastritis type K29.70 [facility] [address] [place] [facility] [address] [place], [place] [id number] 07/12/2024 Shanda Crowdy Esophageal dysmotili ty K22.4 ; Chronic gastritis without bleeding, unspecified gastritis type K29.50 ; Chronic GERD K21.9 and Weight loss R63.4 [facility] [address] [place], [place] [id number] 07/30/2024 Elodia Patton Weight loss R63.4 ; Dysphagia R13.10 and Dyspepsia K30 [facility] [address] [place], [place] [id number] 08/20/2024 Elodia Patton Oropharyngeal dyspha selwyn R13.12 ; Dysuria R30.0 and BMI 20.0-20.9, adult Z68.20 [facility] [address] [place], [place] [id number] 10/25/2024 Shawn [place] Chronic rhinitis J31 .0 ; Nausea R11.0 ; Weight loss R63.4 ; Renal insufficiency N28.9 and Restless leg G25.81 [facility] [address] [place], [place] [id number] 10/23/2024 Elodia Patton [facility] [address] [place] [facility] [address] [place], [place] [id number] 10/26/2024 Shawn [place] [facility] [address] [place], [place] [id number] 11/29/2023 Shanda Pachecojoao Iron deficiency E61. 1 [facility] [address] [place], [place] [id number] 01/12/2024 Shanda Pachecojoao Iron deficiency E61. 1 [facility] [address] [place], [place] [id number] 01/19/2024 Shanda Pachecojoao [facility] [address] [place], [place] [id number] 01/25/2024 Elodia Patton [facility] [address] [place], [place] [id number] 04/20/2024 Shanda Fu [facility] [address] [place], [place] [id number] 04/25/2024 Shanda Pachecojoao [facility] [address] [place], [place] [id number] 07/12/2024 Shanda Tank Assessments Encounter Date Diagnosis (ICD Code) Assessment Notes Treatment Notes Treatment Clinical Notes Section Notes 11/23/2023 Essential hypertension (ICD-10 - I10) 11/23/2023 Coronary artery disease involving hughes coronary artery of hughes heart with unstable angina pectoris (ICD-10 - I25.110) Will continue to follow with cardiology. 12/23/2023 Essential hypertension (ICD-10 - I10) BP has come down. Hearing loss and dizziness have resolved. He has not started his irbesartan because timoteo had to order it. He is picking it up today and will take one today. Will monitor BP at home. 12/23/2023 Stage 3a chronic kidney disease (CKD) (ICD-10 - N18.31) Will get labs. 01/12/2024 Iron deficiency (ICD-10 - E61.1) 01/18/2024 Renal insufficiency (ICD-10 - N28.9) 11/29/2023 Iron deficiency (ICD-10 - E61.1) 04/19/2024 Nausea and vomiting in adult (ICD-10 - R11.2) 04/19/2024 Esophageal dysphagia (ICD-10 - R13.19) 07/12/2024 Chronic gastritis without bleeding, unspecified gastritis type (ICD-10 - K29.50) 07/12/2024 Esophageal dysmotility (ICD-10 - K22.4) The patient has been taking voquezna, iberogast, and align with no improvement. He will call and get a f/u with Dr. Vinson. We will try again to get records from Dr. Douglas and to obtain the MRI report. 07/30/2024 Weight loss (ICD-10 - R63.4) 07/30/2024 Dysphagia (ICD-10 - R13.10) 08/20/2024 Dysuria (ICD-10 - R30.0) 08/20/2024 Oropharyngeal dysphagia (ICD-10 - R13.12) 10/25/2024 Chronic rhinitis (ICD-10 - J31.0) 10/25/2024 Nausea (ICD-10 - R11.0) 07/12/2024 Chronic GERD (ICD-10 - K21.9) 08/20/2024 BMI 20.0-20.9, adult (ICD-10 - Z68.20) 10/25/2024 Weight loss (ICD-10 - R63.4) 07/30/2024 Dyspepsia (ICD-10 - K30) 04/19/2024 Esophageal spasm (ICD-10 - K22.4) 12/23/2023 Iron deficiency (ICD-10 - E61.1) Will get labs. 11/23/2023 Chronic GERD (ICD-10 - K21.9) 11/23/2023 Dysphagia, unspecified type (ICD-10 - R13.10) A new referral has already been made. 07/12/2024 Weight loss (ICD-10 - R63.4) 04/19/2024 Gastritis without bleeding, unspecified chronicity, unspecified gastritis type (ICD-10 - K29.70) Will speak with cardiology to see if he can stop his aspirin. 12/23/2023 Dizziness (ICD-10 - R42) Resolved. 10/25/2024 Renal insufficiency (ICD-10 - N28.9) 10/25/2024 Restless leg (ICD-10 - G25.81) 12/23/2023 Elevated blood pressure reading (ICD-10 - R03.0) Improved. 11/23/2023 Status post coronary artery stent placement (ICD-10 - Z95.5) 11/23/2023 Stage 3a chronic kidney disease (CKD) (ICD-10 - N18.31) 12/23/2023 Bilateral hearing loss, unspecified hearing loss type (ICD-10 - H91.93) Resolved. 11/23/2023 Iron deficiency (ICD-10 - E61.1) 11/23/2023 Vitamin D deficiency (ICD-10 - E55.9) 11/23/2023 Vitamin B12 deficiency (ICD-10 - E53.8) Plan Of Treatment Pending Test Test Name Order Date Cardiac Stress Test Exercise Cardiolyte 01/12/2022 Insurance Providers Payer Name Payer Address Payer Phone Subscriber Number Group Number Insured Name Patient Relationship to Insured Coverage Start Date Coverage End Date [facility]LY [facility] [employer] [address] [place] [address] [id number] МАРИНА HALL Self - patient is the insured Medications Administered Medication Instructions Date of Administration Dosage Notes B-12 11/08/2018 1 mL B-12 11/20/2018 1 mL Dexamethasone 07/02/2019 1 mL Medical (General) History Medical History History ICD Code M I 06/03/2023, with PCI and 1 stent placed, then 4 stents placed 2 weeks later Coronary Artery Disease Esophageal reflux Restless Leg Syndrome Renal Insufficiency hyperlipidemia hypertriglyceridemia Surgical History Surgery Date(Month/Year) C4-C5 Neck Fusion 2016 Neck- Central Mandaeism 12/31/2019 Hospitalization History Reason Date(Month/Year) M I 06/03/2023
--- OUTSIDE RECORDS SUMMARY | 2024-11-05 04:52 | XMS_ITS | Encounter Summary ---
Author Organization [employer] Address [address] [place] [id number] Care Team Providers Care Food Production Associate Name Role Phone Carl Patton MD Primary Care Provider [phone] Encounter Details Date Type Department Care Team (Late st Contact Info) Description 12/30/2020 Transcribed Document [facility] Family Medicine Critical [facility] hospital [place], [place] [id number] ProviderLucy MD [address] [place] [id number] Social History Tobacco Use Types Packs/Day Years [...] On: 12/30/2020 19:13 EDT by ANTONIO VICTOR, biometrics head Documentation Discharge Date/Time : 12/30/2020 19:20 EDT [...] 12/30/2020 19:13 EDT Electronically signed by Charlene, [facility] Conversion Manager Industrial Cerner at 08/31/2022 10:42 PM CDT documented in this encounter Plan of Treatment Not on file documented as of this encounter Visit Diagnoses Not on filedocumented in this encounter Care Teams Food Production Associate Relationship Specialty Start Date End Date Carl Patton MD [address] [place] [address] PCP - General Family Medicine 06/03/23 documented as of this encounter
--- OUTSIDE RECORDS SUMMARY | 2024-11-05 04:52 | XMS_ITS | Encounter Summary ---
Author Organization [employer] In [employer]atives Address [address] [facility] [place] [address] Care Team Providers Care Plate Mill Mill Hand Name Role Phone Carl Patton MD Primary Care Provider [phone] Reason for Visit * Reason Comments Medication Refill Encounter Details Date Type Department Care Team (Late st Contact Info) Description 09/21/2024 Refill [facility] Cardiology [address] [place] [address] Helena Romero MD [address] [facility] [address] [place] [address] Social History Tobacco Use Types Packs/Day Years [...] to sleep or slept in a senior living (including now)? No 06/04/2023 Utilities Answer Date Recorded In the past 12 months, has t he [employer], gas, oil, or water [employer] threatened to shut off services in your [...] Do you speak a language other than Kazakh at [facility]? No 06/03/2023 Do you want [...] on filedocumented in this encounter Care Teams Plate Mill Mill Hand Relationship Specialty Start Date End Date Carl Patton MD [address] [place] [address] PCP - General Family Medicine 06/03/23 documented as of this encounter
--- OUTSIDE RECORDS SUMMARY | 2024-11-05 04:52 | XMS_ITS | Encounter Summary ---
Author Organization [facility] In iatives Address [address] [place] [address] Care Team Providers Care Business Records Manager Name Role Phone Carl Patton MD Primary Care Provider [phone] Reason for Visit * Reason Comments Medication Refill Encounter Details Date Type Department Care Team (Late st Contact Info) Description 09/25/2024 Refill [facility] Cardiology [address] [place] [address] Helena Romero MD [address] [facility] [address] [place] [address] Social History Tobacco Use Types Packs/Day Years [...] place to sleep or slept in a [facility] (including now)? No 06/04/2023 Utilities Answer Date Recorded In the past 12 months, has t he [employer], gas, oil, or water [employer] threatened to shut off services in your [...] Do you speak a language other than Thai at [facility]? No 06/03/2023 Do you want help [...] on filedocumented in this encounter Care Teams Business Records Manager Relationship Specialty Start Date End Date Carl Patton MD [address] [place] [address] PCP - General Family Medicine 06/03/23 documented as of this encounter
--- OUTSIDE RECORDS SUMMARY | 2024-11-05 04:52 | XMS_ITS | Encounter Summary ---
Author Organization [email or web address] In iatives Address [facility] [place] [address] Care Team Providers Care Wire Mesh Gate Assembler Name Role Phone Carl Patton MD Primary Care Provider [phone] Encounter Details Date Type Department Care Team (Late st Contact Info) Description 01/18/2021 Transcribed Document [facility] Cardiology [address] [place], [place] [id number] Helena Romero MD [address] [place] [address] [address] [place] [address] Social History Tobacco Use Types Packs/Day Years [...] 1. Normal study. 2. Ejection fraction 63%. /[id number] Helena Romero MD NMF/AQ / NMF / MODL /[id number] documented in this encounter Plan of Treatment Not on file documented as of this encounter Visit Diagnoses Not on filedocumented in this encounter Care Teams Wire Mesh Gate Assembler Relationship Specialty Start Date End Date Carl Patton MD [address] [place] [address] PCP - General Family Medicine 06/03/23 documented as of this encounter
--- OUTSIDE RECORDS SUMMARY | 2024-11-05 04:52 | XMS_ITS | Encounter Summary ---
Author Organization [employer] In [employer] Address [address] [place] [address] Care Team Providers Care Portal Architect Name Role Phone Carl Patton MD Primary Care Provider [phone] Encounter Details Date Type Department Care Team (Late st Contact Info) Description 01/13/2021 Transcribed Document [facility] [place] [facility] [place] [address] ProviderLucy MD [address] [place] [id number] Social History Tobacco Use Types Packs/Day Years [...] on filedocumented in this encounter Care Teams Portal Architect Relationship Specialty Start Date End Date Carl Patton MD [address] [place] [address] PCP - General Family Medicine 06/03/23 documented as of this encounter
--- OUTSIDE RECORDS SUMMARY | 2024-11-05 04:52 | XMS_ITS | Encounter Summary ---
Author Organization [employer] In [employer]atives Address [address] [place] [address] Care Team Providers Care Rubber Press Tender Name Role Phone Carl Patton MD Primary Care Provider [phone] Reason for Visit * Reason Comments Medication Refill Encounter Details Date Type Department Care Team (Late st Contact Info) Description 08/30/2024 Refill [facility] Cardiology [address] [place] [address] Helena Romero MD [address] [facility] [address] [place] [address] Social History Tobacco Use Types Packs/Day Years [...] the past 12 months, has t he [email or web address], gas, oil, or water [employer] threatened to shut off services in your [...] Do you speak a language other than Amharic at [facility]? No 06/03/2023 Do you want [...] on filedocumented in this encounter Care Teams Rubber Press Tender Relationship Specialty Start Date End Date Carl Patton MD [address] [place] [address] PCP - General Family Medicine 06/03/23 documented as of this encounter
[2024-11-05 05:00] LABS: Basophils # 0.1 K/mm3 (0-0.2); Basophils % 0.8 % (0.1-2.0); Eosinophils # 0.5 Kmm3 (0.0-0.4); Eosinophils % 4.1 % (0.1-12.0); Hematocrit 36.9 % (42.0-52.0); Hemoglobin 12.2 g/dL (14.1-18.0); Immature Granulocytes # 0.18 10^3uL; Immature Granulocytes % 1.6 %; Lymphocytes # 2.5 K/mm3 (0.7-4.5); Lymphocytes % 22.9 % (10-50); Mean Corpuscular HGB Conc 33.1 g/dL (31.8-35.4); Mean Corpuscular Volume 84.6 fl (80-94); Monocytes # 0.9 K/mm3 (0.1-1.0); Monocytes % 8.3 % (1.7-9.3); Neutrophils # 6.9 K/mm3 (1.8-7.8); Neutrophils % 62.3 % (37.0-80.0); Nucleated Red Blood Cells # 0 10^3/uL; Nucleated Red Blood Cells % 0 %; Platelet Count 538 K/mm3 (142-424); Red Blood Count 4.36 M/mm3 (4.60-6.20); Red Cell Distribution Width 13.1 % (11.5-17.5); Red Cell Distribution Width-SD 40.2 fL
[2024-11-05 05:11] LABS: Alanine Aminotransferase 13 U/L (12-78); Albumin Level 3.9 g/dl (3.5-5.0); Albumin/Globulin Ratio 1.5 (1.1-1.8); Alkaline Phosphatase 48 U/L (38-126); Anion Gap 7.5 mEq/L (5-15); Aspartate Amino Transferase 17 U/L (17-59); Bilirubin,Total 0.5 mg/dl (0.2-1.3); Blood Urea Nitrogen 45 mg/dl (9-20); Calcium 11.8 mg/dl (8.4-10.2); Carbon Dioxide 31 mmol/L (22.0-30.0); Chloride 94 mmol/L (98-107); Creatinine Clearance Estimated 51 mL/min (50-200); Estimated Glomerular Filt Rate 56 ml/min (>60); GFR (African American) 68 ML/MIN (>60); Globulin 2.6 g/dL (1.3-3.2); Glucose 137 mg/dl (74-100); Lipase 109 U/L (23-300); Potassium 4.5 mmoL/L (3.5-5.1); Sodium 128 mmol/L (136-145); Total Protein,Serum 6.5 g/dl (6.3-8.2)
[2024-11-05 05:16] LABS: D-Dimer 0.45 ug/mL (0.0-0.5)
[2024-11-05 05:26] LABS: Troponin I < 0.01 ng/ml (0.00-0.034)
[2024-11-05 05:31] LABS: Troponin I < 0.01 ng/ml (0.00-0.034)
[2024-11-05] MEDS: 0.9 % SODIUM CHLORIDE 1000ML 1,000 ML 999 ML IV ×2 (05:36→06:36)
[2024-11-05 06:22] LABS: Magnesium 1.4 mg/dl (1.6-2.3)
[2024-11-05] MEDS: MAGNESIUM SULFATE IN WATER 2 GM/50 ML PIGGYBACK IV ×2 (06:37)
--- NOTE | 2024-11-05 07:53 | CA_ITS ---
APPROVED REPORT EXAM: Comprehensive 2D, Doppler, and color-flow Echocardiogram Retail Consultant: Jyoti East RT(R) Ht: 5 ft 8 in Wt: 133lbs BSA: 1.72 BP: 122/91 mmHg Indications: syncope, chest pain, CAD, renal artery stenosis 2D Dimensions LVEF (Borges's) 58.20 % M: 52 - 72 LV Volume 79.70 mL M: 62 - 150 LV Volume Index 46.3 mL/m2 M: 34 - 74 LA Volume 13.30 mL LA Volume Index 7.73 mL/m2 (M/F) 16-34 EF AP4 55.20 % EF AP2 60.7 % EF BP 58.2 % GL Strain -15.5 % M-Mode Dimensions RVDd 2.22 cm (0.9-2.6) LA Diam 2.48 cm (1.9-4.0) LVDd 5.01 cm (3.5-5.7) LVDs 4.04 cm (3.5-5.7) IVSd 0.56 cm (0.6-1.1) PWd 0.56 cm (0.6-1.1) EF (Teich) 39.60% FS 19.40% EDV (Teich) 118.80 mL ESV (Teich) 71.70 mL LV Diastology E Decel Time 253 (160-240 msec) E/A Ratio 1.3 Mitral Valve MV E Max Regulo. 83.0 (40-130 cm/s) MV A Velocity 65.0 (40-130 cm/s) E/A Ratio 1.27 MV PHT 74.0 ms Left Ventricle The left ventricle is normal size. The left ventricular systolic function is normal. The left ventricular ejection fraction is within the normal range. There is increased LV wall thickness. There is normal LV segmental wall motion. The left ventricular diastolic function is normal. LVEF is 60%. Right Ventricle The right ventricle is normal size. The right ventricular systolic function is normal. Atria The left atrium size is normal. The right atrium size is normal. There is no Doppler evidence of interatrial shunt. Aortic Valve Aortic valve is mildly thickened. There is no aortic valvular stenosis. Mild aortic regurgitation. Mitral Valve The mitral valve is normal in structure. No evidence of mitral valve stenosis. Mild mitral regurgitation. Tricuspid Valve Tricuspid valve is grossly normal in structure and function. Trace tricuspid regurgitation. There is insufficient TR jet to estimate RVSP. Pulmonic Valve The pulmonary valve is normal in structure. Trace pulmonic regurgitation. Great Vessels The aortic root is normal in size. IVC is normal in size and collapses >50% with inspiration. Pericardium There is no pericardial effusion. Other Information Study Quality: Fair Conclusion Normal biventricular systolic function. Mild MR, mild AI. Electronically signed by : Alivia Hall MD 11/05/2024 12:12:48
--- NOTE | 2024-11-05 08:05 | PC.NURSE ---
Addendum entered by Ketty Dotson RN 11/05/24 08:05: time of call was 0745 Original Note: notified house of admission
--- NOTE | 2024-11-05 08:06 | HMH.PHAINT1 ---
Pharmacy Intervention Comments: MEDICATION RECONCILIATION COMPLETED ON PATIENT USING EXTERNAL FILL HISTORY FROM PHARMACY. -ROSITA VASQUEZ, TINAD
[2024-11-05 08:54] LABS: Troponin I < 0.01 ng/ml (0.00-0.034)
--- NOTE | 2024-11-05 09:41 | P.HP_ITS ---
History of Present Illness *Admission Date: 11/05/24 *Reason for visit:: Syncope *History of present illness: 59-year-old male with a of coronary artery disease, hypertension, chronic kidney disease, COPD presents for chest pain. He reports he has been feeling generally weak and bad over the last few days. He started having chest pain and shortness of breath yesterday. This morning when he woke up he was not feeling well. He was in the shower and apparently passed out. His significant other heard a crash and came into the bathroom and found him. Family thinks that he passed out because he has not been eating or drinking much. He has had weight loss. He admits depression related to these unresolved issues. He has been having issues for months, has seen a GI doctor, has had endoscopy by Dr. Vinson, has seen a vascular surgeon, Dr. Cid, but they have never been able to follow-up with a satisfactory explanation for his symptoms. He has had recent past cardiology evaluations. Including a heart cath 08/12/23. He has even been screened for AlphaGal. Recently has gone off of some medications. Taking 1/2 dose of Irbesartan 150mg and 1/2 of Clopidogrel 75mg. Recent RX pramipexole. [facility] Disclaimer: The information contained in this section may have been updated after the patient was seen, as this information can be updated by other users. Medical History (Updated 11/05/24 @ 09:56 by Dorota Patton MD) Hyponatremia Depression HTN (hypertension) Renal artery stenosis Chronic renal insufficiency, stage II (mild) Metatarsal fracture Fatigue SMOOTH (obstructive sleep apnea) COPD (chronic obstructive pulmonary disease) Pectus excavatum Right atrial enlargement Tobacco user HLD (hyperlipidemia) CAD (coronary artery disease) Surgical History History of neck surgery History of coronary artery stent placement H/O shoulder surgery Hx of knee surgery Family History Father Family history of myocardial infarction Social History (Updated 11/05/24 @ 09:21 by Polina Cobian RN) Smoking Status: Current every day smoker tobacco type: cigarettes packs per day: 1 second hand exposure: Yes alcohol intake: never substance use type: denies use current occupational status: employed Travel in the last 8 weeks?: None household members: significant other housing: house current occupation: [employer] current occupational exposures/hazards: No caffeine: Yes Have you lived/traveled outside US in past 30 days?: No Contact w/someone who lives/traveled outside US past 30 days?: No Exposure to someone with infectious disease in past 14 days?: No Do you have a fever (greater than 100.4 F or 38 C)?: No Have you tested positive for COVID-19?: No Exposed to someone with COVID-19 in past 14 days?: No Do you have a sore throat?: No Do you have a cough?: No Do you have any weakness?: No Do you have any diarrhea?: No Are you experiencing any unusual bleeding?: No Do you have any muscle aches/pain?: No Do you have any abdominal pain?: No Are you experiencing loss of taste or smell?: No Other Medical History Have you received the Flu Vaccine for this season: No Have you received the Pneumonia Vaccine: Yes Review of Systems Review of Systems Review of systems:: pertinent systems reviewed and negative unless documented below Constitutional Constitutional: Reports as per HPI and Reports weight loss Eyes Eyes: Reports system reviewed and no additional complaints, except as documented ENT Ears, Nose, Mouth, and Throat: Reports dysphagia and Reports other (Scheduled to see ENT in November due to difficulty swallowing) *Cardiovascular Cardiovascular: Reports as per HPI, Reports chest pain, Reports lightheadedness and Reports syncope *Respiratory Respiratory: Reports system reviewed and no additional complaints, except as documented *Gastrointestinal Gastrointestinal: Reports as per HPI, Denies abdominal pain, Denies change in bowel habits, Reports dysphagia, Denies fecal incontinence, Denies hematochezia, Denies loose stools, Denies melena and Reports nausea *Genitourinary Genitourinary: Reports system reviewed and no additional complaints, except as documented *Musculoskeletal Musculoskeletal: Reports as per HPI Integumentary/Breasts Skin/Breast: Reports rash and Reports unusual bruising *Neurologic Neurologic: Reports as per HPI, Denies convulsions and Reports syncope Psychiatric Psychiatric: Reports depression Endocrine Endocrine: Reports system reviewed and no additional complaints, except as documented Hematologic/Lymphatic Hematologic/Lymphatic: Reports as per HPI Allergic/Immunologic Allergic/Immunologic: Reports as per HPI Meds Home Medications and Allergies Home Medications ?Medication ?Instructions ?Recorded ?Confirmed ?Type nitroglycerin 0.4 mg sublingual 0.4 mg sublingual Q5MI PANTOGRAPHER PRN Chest 08/13/24 11/05/24 History tablet Pain azelastine 137 mcg-fluticasone 50 1 spray intranasal B ID 11/05/24 11/05/24 History mcg/spray nasal spray clopidogrel 75 mg tablet 37.5 mg PO DAILY 11/05/24 History irbesartan 150 mg tablet 75 mg PO DAILY 11/05/2410/15 History ondansetron 8 mg disintegrating 8 mg PO Q12HP PRN naus ea and 11/05/24 11/05/24 History tablet vomiting pramipexole 0.125 mg tablet 0.125 mg PO DAILY 11/05/24 11/05/24 History New Prescriptions to Start Prescriptions: Allergies Allergy/AdvReac Type Severity Reaction Status Date / Time No Known Allergies Allergy Verified 11/02/24 10:44 Exam Data for Last 24 hours Vital signs and Labs for Last 24 Hours: Temp Pulse Resp BP Pulse Ox O2 Del Method 98.1 F 76 16 144/74 H 100 Room Air 11/05/24 09:30 11/05/24 09:30 11/05/24 09:30 11/05/24 09:30 11/05/24 09:30 11/05/24 09:30 Laboratory Results - last 24 hr 11/05/24 04:45: WBC 11.0 H, RBC 4.36 L, Hgb 12.2 L, Hct 36.9 L, MCV 84.6, MCH 28.0, MCHC 33.1, RDW 13.1, Plt Count 538 H, MPV 9.0, Neut % (Auto) 62.3, Lymph % (Auto) 22.9, Phillips % (Auto) 8.3, Eos % (Auto) 4.1, Baso % (Auto) 0.8, Neut # (Auto) 6.9, Lymph # (Auto) 2.5, Phillips # (Auto) 0.9, Eos # (Auto) 0.5 H, Baso # (Auto) 0.1, D-Dimer 0.45, Sodium 128 L, Potassium 4.5, Chloride 94 L, Carbon Dioxide 31 H, Anion Gap 7.5, BUN 45 H, Creatinine 1.30 H, Estimated Creat Clear 51, Estimated GFR 56 L, Est GFR ( Amer) 68, Glucose 137 H, Calcium 11.8 H , Magnesium 1.4 L, Total Bilirubin 0.5, AST 17, ALT 13, Alkaline Phosphatase 48, Troponin I < 0.01 11/05/24 04:45: Troponin I < 0.01, Total Protein 6.5, Albumin 3.9, Globulin 2.6, Albumin/Globulin Ratio 1.5, Lipase 109 11/05/24 08:02: Troponin I < 0.01 I & O for Last 24 hours: Intake & Output 11/02/24 11/03/24 11/04/24 11/05/24 11:59 11:59 11:59 11:59 Output Total 0 / 0 Balance 0 / 0 Weight 131 lb 14.4 oz Constitutional Constitutional: no acute distress *Routine HEENT Exam Head: Present normocephalic and atraumatic Eye: Present EOMI and PERRL; Absent conjunctival icterus ENT: Present mucous membranes moist *Routine Neck Exam Neck: Present supple and full ROM; Absent trauma Routine Chest/Breast/Axilla Exam Chest wall: Absent tenderness *Routine Respiratory Exam Respiratory: Present decreased breath sounds and CTA bilaterally *Routine Cardiovascular Exam Cardiovascular: Present RRR; Absent murmur or tachycardia *Routine Abdominal Exam Abdominal: Present soft and normoactive bowel sounds; Absent tenderness, distended, rebound, guarding, rigid, obese, organomegaly or mass *Routine Rectal Exam Rectal:: deferred *Routine Genitalia Exam Genitalia:: deferred *Routine Extremities Exam Extremities: Absent cyanosis, clubbing or edema Routine Back/Spine/Pelvis Exam Back/Spine: Present full ROM *Routine Skin Exam Skin: Present intact (mihai) and ecchymosis; Absent mottling, jaundice or rash *Routine Neurological Exam Neurological: Present alert and oriented X3 Routine Psychiatric Exam Psychiatric: Present depressed; Absent normal affect (blunted) Assessment and Plan *Assessment and plan (1) Syncope: Status: Acute Category: Medical Code(s): R55 - Syncope and collapse (2) Globus sensation: Status: Acute Category: Medical Code(s): R09.A2 - Foreign body sensation, throat (3) Dysphagia: Status: Acute Category: Medical Code(s): R13.10 - Dysphagia, unspecified (4) Hyponatremia: Status: Acute Category: Medical Code(s): E87.1 - Hypo-osmolality and hyponatremia (5) Depression: Status: Acute Category: Medical Code(s): F32.A - Depression, unspecified (6) Tobacco user: Status: Chronic Category: Social Hx Code(s): Z72.0 - Tobacco use (7) History of coronary artery stent placement: Status: Acute Category: Surgical Code(s): Z95.5 - Presence of coronary angioplasty implant and graft (8) CAD (coronary artery disease): Status: Chronic Qualifiers: Coronary Disease-Associated Artery/Lesion type: [place] artery [place] vs. transplanted heart: [place] heart Associated angina: with other forms of angina Qualified Code(s): I25.118 - Atherosclerotic heart disease of [place] coronary artery with other forms of angina pectoris Category: Medical Code(s): I25.10 - Atherosclerotic heart disease of [place] coronary artery without angina pectoris (9) Pectus excavatum: Status: Chronic Category: Medical Code(s): Q67.6 - Pectus excavatum Plan Cardiac consultation. Note normal lipase and liver functions.
--- NOTE | 2024-11-05 10:57 | P.CONCA_ITS ---
History of Present Illness History of Present Illness Consult date: 11/05/24 Requesting physician: Dorota Patton Consult reason: chest pain Chief complaint: CP, syncope Additional Medical History:: 1. CAD is present. -Medical management in 07/2023. Endothelial dysfunction. -MART to circ and first OM, RCA, circ in 06/2023. -[facility], 06/06/2023, Dr. Khalil, 3.0 x 28 mm Synergy MART to mid to distal circumflex with crossing of OM but with REED-3 flow.Remaining mild plaque in mid LAD. Mild to moderate disease of RCA noted. -DAPT on ASA/Plavix 2. HTN - Limited echo, 06/2023, EF 60% with normal RV size and function. 3. HLD- LDL 57 (07/2023), -on statin therapy 4. GERD, on PPI therapy -EGD/Colonoscopy 07/2024, unremarkable per patient 5. CKD, stage III with creatinine 1.8 (08/2023) GFR 39. -He is followed by Nephrology 6. DONIS is present. -BMS to left renal artery in 06/2023 7. Intermittent smoker. History of present illness: 59-year-old male with a of coronary artery disease, hypertension, chronic kidney disease, COPD presents for chest pain. He reports he has been feeling generally weak and bad over the last few days. He started having chest pain and shortness of breath yesterday. This morning when he woke up he was not feeling well. He was in the shower and apparently passed out. His significant other heard a crash and came into the bathroom and found him. Family thinks that he passed out because he has not been eating or drinking much. He has had weight loss. He admits depression related to these unresolved issues. He has been having issues for months, has seen a GI doctor, has had endoscopy by Dr. Vinson, has seen a vascular surgeon, Dr. Cid, but they have never been able to follow-up with a satisfactory explanation for his symptoms. He has had recent past cardiology evaluations. Including a heart cath 08/12/23. He has even been screened for AlphaGal. Recently has gone off of some medications. Taking 1/2 dose of Irbesartan 150mg and 1/2 of Clopidogrel 75mg. Recent RX pramipexole. The above per Dr. Patton. Events as noted above confirmed with the patient and his . He has had a greater than 30 pound weight loss over the last year. He does relate some heartburn/burning/difficulty swallowing symptoms over the last few months without etiology after GI and vascular surgery evaluations. Patient does have extensive coronary artery disease with prior coronary stenting's in early 2023. Troponins this admission are normal. EKG is sinus with tachycardia at 111 bpm with possible biatrial enlargement with poor R wave progression anteriorly consistent with prior tracings. No acute change compared to June 2023 tracing. [facility] Disclaimer: The information contained in this section may have been updated after the patient was seen, as this information can be updated by other users. Medical History (Updated 11/05/24 @ 11:18 by ISAÍAS Mckenzie) Hyponatremia Depression HTN (hypertension) Renal artery stenosis Chronic renal insufficiency, stage II (mild) Metatarsal fracture Fatigue SMOOTH (obstructive sleep apnea) COPD (chronic obstructive pulmonary disease) Pectus excavatum Right atrial enlargement Tobacco user HLD (hyperlipidemia) CAD (coronary artery disease) Surgical History History of neck surgery History of coronary artery stent placement H/O shoulder surgery Hx of knee surgery Family History Father Family history of myocardial infarction Social History (Updated 11/05/24 @ 09:21 by Polina Cobian RN) Smoking Status: Current every day smoker tobacco type: cigarettes packs per day: 1 second hand exposure: Yes alcohol intake: never substance use type: denies use current occupational status: employed Travel in the last 8 weeks?: None household members: significant other housing: house current occupation: [employer] current occupational exposures/hazards: No caffeine: Yes Have you lived/traveled outside [place] in past 30 days?: No Contact w/someone who lives/traveled outside US past 30 days?: No Exposure to someone with infectious disease in past 14 days?: No Do you have a fever (greater than 100.4 F or 38 C)?: No Have you tested positive for COVID-19?: No Exposed to someone with COVID-19 in past 14 days?: No Do you have a sore throat?: No Do you have a cough?: No Do you have any weakness?: No Do you have any diarrhea?: No Are you experiencing any unusual bleeding?: No Do you have any muscle aches/pain?: No Do you have any abdominal pain?: No Are you experiencing loss of taste or smell?: No Review of Systems Review of Systems Review of systems:: pertinent systems reviewed and negative unless documented below Constitutional Constitutional: Reports weight loss *Cardiovascular Cardiovascular: Reports chest pain, Reports dyspnea on exertion and Reports syncope *Respiratory Respiratory: Reports dyspnea on exertion *Gastrointestinal Gastrointestinal: Reports heartburn and Reports vomiting *Neurologic Neurologic: Reports as per HPI, Denies convulsions and Reports syncope Exam Data for Last 24 hours Vital signs and Labs for Last 24 Hours: Temp Pulse Resp BP Pulse Ox O2 Del Method 98.1 F 76 16 144/74 H 100 Room Air 11/05/24 09:30 11/05/24 09:30 11/05/24 09:30 11/05/24 09:30 11/05/24 09:30 11/05/24 09:30 Laboratory Results - last 24 hr 11/05/24 04:45: WBC 11.0 H, RBC 4.36 L, Hgb 12.2 L, Hct 36.9 L, MCV 84.6, MCH 28.0, MCHC 33.1, RDW 13.1, Plt Count 538 H, MPV 9.0, Neut % (Auto) 62.3, Lymph % (Auto) 22.9, [place] % (Auto) 8.3, Eos % (Auto) 4.1, Baso % (Auto) 0.8, Neut # (Auto) 6.9, Lymph # (Auto) 2.5, [place] # (Auto) 0.9, Eos # (Auto) 0.5 H, Baso # (Auto) 0.1, D-Dimer 0.45, Sodium 128 L, Potassium 4.5, Chloride 94 L, Carbon Dioxide 31 H, Anion Gap 7.5, BUN 45 H, Creatinine 1.30 H, Estimated Creat Clear 51, Estimated GFR 56 L, Est GFR ( Amer) 68, Glucose 137 H, Calcium 11.8 H , Magnesium 1.4 L, Total Bilirubin 0.5, AST 17, ALT 13, Alkaline Phosphatase 48, Troponin I < 0.01 11/05/24 04:45: Troponin I < 0.01, Total Protein 6.5, Albumin 3.9, Globulin 2.6, Albumin/Globulin Ratio 1.5, Lipase 109 11/05/24 08:02: Troponin I < 0.01 I & O for Last 24 hours: Intake & Output 11/02/24 11/03/24 11/04/24 11/05/24 11:59 11:59 11:59 11:59 Output Total 200 / 200 Balance -200 / -200 Weight 131 lb 14.4 oz Constitutional Constitutional: no acute distress *Routine Respiratory Exam Respiratory: Present decreased breath sounds and CTA bilaterally; Absent rales, rhonchi or wheezes *Routine Cardiovascular Exam Cardiovascular: Present RRR and tachycardia; Absent murmur, gallop or rubs *Routine Extremities Exam Extremities: Absent edema Meds Home Medications and Allergies Home Medications ?Medication ?Instructions ?Recorded ?Confirmed ?Type nitroglycerin 0.4 mg sublingual 0.4 mg sublingual Q5MI SPECIAL AGENT PRN Chest 08/13/24 11/05/24 History tablet Pain azelastine 137 mcg-fluticasone 50 1 spray intranasal B ID 11/05/24 11/05/24 History mcg/spray nasal spray clopidogrel 75 mg tablet 37.5 mg PO DAILY 11/05/24 History irbesartan 150 mg tablet 75 mg PO DAILY 11/05/2410/15 History ondansetron 8 mg disintegrating 8 mg PO Q12HP PRN naus ea and 11/05/24 11/05/24 History tablet vomiting pramipexole 0.125 mg tablet 0.125 mg PO DAILY 11/05/24 11/05/24 History New Prescriptions to Start Prescriptions: Allergies Allergy/AdvReac Type Severity Reaction Status Date / Time No Known Allergies Allergy Verified 11/02/24 10:44 Assessment and Plan *Assessment and plan (1) Syncope: Status: Acute Qualifiers: Syncope type: unspecified Qualified Code(s): R55 - Syncope and collapse Category: Medical Code(s): R55 - Syncope and collapse (2) Chest pain: Status: Acute Qualifiers: Chest pain type: other chest pain Qualified Code(s): R07.89 - Other chest pain Category: Medical Code(s): R07.9 - Chest pain, unspecified (3) CAD (coronary artery disease): Status: Chronic Qualifiers: Associated angina: with other forms of angina Coronary Disease- Associated Artery/Lesion type: [place] artery [place] vs. transplanted heart: [place] heart Qualified Code(s): I25.118 - Atherosclerotic heart disease of [place] coronary artery with other forms of angina pectoris Category: Medical Code(s): I25.10 - Atherosclerotic heart disease of [place] coronary artery without angina pectoris (4) History of coronary artery stent placement: Status: Acute Category: Surgical Code(s): Z95.5 - Presence of coronary angioplasty implant and graft (5) Fatigue: Status: Chronic Qualifiers: Fatigue type: chronic, unspecified Qualified Code(s): R53.82 - Chronic fatigue, unspecified Category: Medical Code(s): R53.83 - Other fatigue (6) HTN (hypertension): Status: Acute Qualifiers: Hypertension type: unspecified Qualified Code(s): I10 - Essential (primary) hypertension Category: Medical Code(s): I10 - Essential (primary) hypertension (7) Abnormal weight loss: Status: Acute Category: Medical Code(s): R63.4 - Abnormal weight loss (8) Hyponatremia: Status: Acute Category: Medical Code(s): E87.1 - Hypo-osmolality and hyponatremia (9) Hypomagnesemia: Status: Acute Category: Medical Code(s): E83.42 - Hypomagnesemia Plan 1. Chest pain with syncope -Troponins normal -EKG with poor R wave progression anteriorly, chronic with no acute changes this admission -Known coronary artery disease with prior coronary stenting early 2023 -Patient has reduced his clopidogrel to 1/2 tablet daily. He is not on aspirin therapy. -Recommend left heart catheterization today for further evaluation of coronary artery disease. Patient agrees to proceed. 2. Dysphagia with weight loss of greater than 30 pounds over the last 6 months -Recent GI evaluation without etiology -LFTs and lipase normal 3. History of hypertension -Home medications have been decreased per patient (no metoprolol in a month, half dose of irbesartan) 4. Hyperlipidemia -Check lipid panel this admission 5. Electrolyte disorders (hyponatremia and hypomagnesemia) -Replacements ordered -Sodium 128 and magnesium 1.4 6. Chronic kidney disease, stage III -Creatinine 1.3 with GFR 56 this admission 7. Hypercalcemia at 11.8 Proceed with [facility] today check Echo Further recommendations to follow pending above results Monitor blood pressure and heart rate with recommendations on blood pressure management at discharge Addendum: MART to proximal RCA. DAPT with ASA/Plavix Monitor overnight to watch vitals and assess for recurrent syncope with plans for discharge in AM. Resume irbesartan 75 mg daily
--- NOTE | 2024-11-05 11:03 | IR_ITS ---
APPROVED REPORT Patient Location: Inpatient Organ Pipe Voicer: Sanjiv Olivo, RT (R) PROCEDURES Left heart catheterization Left ventriculogram Selective coronary angiogram Drug-eluting stent deployment to the ostial proximal dominant right coronary INDICATION Coronary artery disease, Syncope, Unstable angina, Informed consent was obtained prior to the procedure. COMPLICATIONS None Estimated Blood Loss: Less than 10 mls TECHNIQUE One percent lidocaine was used to anesthetize the right groin. The right femoral artery was accessed via the Seldinger technique. A 4-Somali sheath was placed in the right femoral artery. The JL-4 and JR-4 catheter was also used to perform left heart catheterization left ventriculogram and selective coronary angiogram. At the end the diagnostic angiogram therapeutic Was administered given a therapeutic ACT 4 Somali sheath was exchanged for a 6 Somali sheath. A JR4 guide catheter was placed in the right coronary artery. There was immediate dampening with the pressure which went to 0 upon engagement. The catheter was pulled back into the right coronary cusp and a Choice PT extra-support wire was advanced. A 3 mm x 15 mm Festus frontier stent was deployed at 24 eboni reducing the stenosis to 0%. There is no dampening upon deployment of the stent. At the end the procedure the apparatus was removed the groin is reprepped closure change sheath was removed hemostasis was achieved using Angio-Seal device patient was transferred to the postop putting in stable condition ANGIOGRAPHIC RESULTS The left main artery Normal The left anterior descending artery Is proximally normal and then has mid vessel 30 to 40% concentric stenosis. The circumflex artery Is nondominant and has stents in the proximal to mid segment which are widely patent with minimal in-stent restenosis. All obtuse marginal arteries are widely patent The right coronary artery Is dominant and has an ostial 60 to 70% stenosis with severe dampening upon engagement with both a 4 Somali JR4 and 6 Somali JR4 catheter. This is followed by stents in the proximal mid and distal segment which are widely patent with mild concentric in-stent restenosis. There is a slight stepdown from the stent into the [place] vessel creating a 30% stenosis The RODRIGUEZ ventriculogram reveals Preserved 55% The left ventricular end-diastolic pressure 10 mmHg IMPRESSION Severe ostial dominant right disease as described above Successful stenting of the ostial proximal right coronary severe disease reduced to 0% with 1 drug-eluting stent Preserved ejection fraction Normal LVEDP PLAN 1. Dual antiplatelet therapy 2. Cardiac rehabilitation 3. Avoidance of tobacco product 4. Risk factor modification 5. LDL less than 55 achieved with high intensity statin Electronically signed by : Александр Barillas MD 11/05/2024 13:27:48
[2024-11-05 11:58] LABS: Hepatitis C Ab Qual. W/ RFX NEGATIVE (Negative)
--- NOTE | 2024-11-05 12:33 | PC.NURSE ---
PATIENT TAKEN TO CHEMICAL WEIGHER BY WHEELCHAIR AT THIS TIME Chong LEAL, SRNA
[2024-11-05] MEDS: 0.9 % SODIUM CHLORIDE 500 ML 25 ML IV (12:44)
[2024-11-05] MEDS: diphenhydrAMINE 50MG/ML VIAL 50 MG IV (12:44)
[2024-11-05] MEDS: HEPARIN 1,000 UNITS/500ML NS (CATH LAB) 3000 UNIT IV (12:44)
[2024-11-05] MEDS: MIDAZOLAM HCL 1MG/ML 5ML VIAL 1 MG IV (12:45)
[2024-11-05] MEDS: LIDOCAINE 1% 10ML MDV 10 ML IJ (12:45)
[2024-11-05] MEDS: FENTANYL 100MCG/2ML VIAL 50 MCG IV (12:45)
[2024-11-05] MEDS: HEPARIN 1,000 UNITS/ML 10ML VIAL (CATH LAB) 5000 UNIT IV (13:23)
[2024-11-05] MEDS: CLOPIDOGREL 300MG TABLET 600 MG PO (13:26)
[2024-11-05] MEDS: ENOXAPARIN 40MG/0.4ML SYRINGE 40 MG SUBCUT (13:56)
[2024-11-05] MEDS: IOPAMIDOL-370 (76%);100ML BOTTLE 80 ML IV (14:34)
[2024-11-05 14:36] LABS: CATHL Activated Clotting Time > 400 SEC (74-125)
[2024-11-05] MEDS: IRBESARTAN 75MG TABLET 75 MG PO (15:22)
[2024-11-05] MEDS: 0.9 % SODIUM CHLORIDE 1000ML 1,000 ML 100 ML IV (15:22)
--- NOTE | 2024-11-05 18:24 | PC.NURSE ---
HEART CATH WITH STENT PLACEMENT TODAY FEMORAL APPROACH. DSG TO INCISION SITE C/D/I. HAS SLEPT SINCE ARRIVAL TO FLOOR FROM GRAPHIC DESIGN PROFESSOR. TOLERATING ROOM AIR. NO COMPLAINTS.
[2024-11-05] MEDS: SUCRALFATE 1GM/10ML SUSP UDC 1 GM PO (19:45)
--- NOTE | 2024-11-05 20:46 | PC.NURSE ---
193 right fem dsg saturated - removed dressing, no active bleed - replaced with fresh dsg - checked frequently between this and 2044 and site remains clear. patient denies CP, SOA. pedal pulses 2+
[2024-11-06] VITALS (32 sets, daily range): BP systolic 82–157; BP diastolic 51–77; PULSE 70–103; RESP 14–18; TEMP 36.6–37.1; O2SAT 95–100; BMI 20.3
[2024-11-06] MEDS: 0.9 % SODIUM CHLORIDE 1000ML 1,000 ML 100 ML IV ×3 (00:05→23:14)
[2024-11-06] MEDS: SUCRALFATE 1GM/10ML SUSP UDC 1 GM PO ×4 (05:37→20:44)
[2024-11-06] MEDS: METOCLOPRAMIDE 10MG TABLET 5 MG PO (05:37)
[2024-11-06 06:28] LABS: Basophils # 0.1 K/mm3 (0-0.2); Basophils % 0.6 % (0.1-2.0); Eosinophils # 0.2 Kmm3 (0.0-0.4); Eosinophils % 1.4 % (0.1-12.0); Hematocrit 21.5 % (42.0-52.0); Immature Granulocytes % 0.9 %; Lymphocytes # 1.8 K/mm3 (0.7-4.5); Lymphocytes % 16.4 % (10-50); Mean Corpuscular HGB Conc 32.6 g/dL (31.8-35.4); Mean Corpuscular Hemoglobin 27.6 pg (27.0-31.2); Mean Corpuscular Volume 84.6 fl (80-94); Mean Platelet Volume 9.5 fl (7.4-10.4); Monocytes # 0.6 K/mm3 (0.1-1.0); Monocytes % 5.8 % (1.7-9.3); Neutrophils # 8.2 K/mm3 (1.8-7.8); Neutrophils % 74.9 % (37.0-80.0); Nucleated Red Blood Cells # 0 10^3/uL; Nucleated Red Blood Cells % 0 %; Platelet Count 343 K/mm3 (142-424); Red Blood Count 2.54 M/mm3 (4.60-6.20); Red Cell Distribution Width 13.3 % (11.5-17.5); Red Cell Distribution Width-SD 41.4 fL
--- NOTE | 2024-11-06 06:50 | PC.NURSE ---
notified dr dueñas of patient h/h drop from to 12/03. ordered type and screen and repeat cbc.
[2024-11-06 06:51] LABS: Albumin Level 2.5 g/dl (3.5-5.0); Chloride 105 mmol/L (98-107); Potassium 4.4 mmoL/L (3.5-5.1); Sodium 132 mmol/L (136-145)
[2024-11-06 06:54] LABS: Alanine Aminotransferase 9 U/L (12-78); Albumin/Globulin Ratio 1.1 (1.1-1.8); Alkaline Phosphatase 41 U/L (38-126); Anion Gap 10.4 mEq/L (5-15); Aspartate Amino Transferase 22 U/L (17-59); Bilirubin,Total 0.1 mg/dl (0.2-1.3); Blood Urea Nitrogen 62 mg/dl (9-20); Calcium 7.7 mg/dl (8.4-10.2); Carbon Dioxide 21 mmol/L (22.0-30.0); Creatinine Clearance Estimated 56 mL/min (50-200); Estimated Glomerular Filt Rate 62 ml/min (>60); GFR (African American) 74 ML/MIN (>60); Globulin 2.3 g/dL (1.3-3.2); Glucose 91 mg/dl (74-100); Total Protein,Serum 4.8 g/dl (6.3-8.2)
--- NOTE | 2024-11-06 07:04 | CT_ITS ---
FINAL REPORT TECHNIQUE: Axial images through the abdomen and pelvis were performed without contrast.This study was performed with techniques to keep radiation doses as low as reasonably achievable, (ALARA). Individualized dose reduction techniques using automated exposure control or adjustment of mA and/or kV according to the patient's size were employed. CLINICAL HISTORY: R/O RETROPERITONEAL BLEED, heart cath yesterday COMPARISON: 10/16/2024 FINDINGS: ABDOMEN: The lung bases are clear. The heart size is normal. Limited images of the liver are unremarkable. Increased density is seen within nondistended gallbladder which likely represents vicarious excretion of contrast. The spleen is normal. No adrenal mass is identified. The aorta is normal in caliber. There is no significant free fluid or adenopathy. There is no nephrolithiasis. There is no hydronephrosis. Bowel is unremarkable. There is no evidence of retroperitoneal bleed. PELVIS: The appendix is normal. There is no retroperitoneal hemorrhage. Minimal retained contrast is seen in the urinary bladder likely related to recent heart catheterization. Minimal stranding seen in the right inguinal region also likely related to recent heart cath. There is no significant free fluid or adenopathy. IMPRESSION: No evidence of retroperitoneal hemorrhage. Reviewed, Interpreted and Dictated by Dorota Ashley MD Transcribed by Miriam Arriaga Authenticated and [facility]
[2024-11-06 07:21] LABS: Basophils # 0.1 K/mm3 (0-0.2); Basophils % 0.7 % (0.1-2.0); Eosinophils # 0.2 Kmm3 (0.0-0.4); Eosinophils % 1.3 % (0.1-12.0); Hematocrit 22.9 % (42.0-52.0); Hemoglobin 7.5 g/dL (14.1-18.0); Immature Granulocytes # 0.15 10^3uL; Immature Granulocytes % 1.1 %; Lymphocytes % 21.9 % (10-50); Mean Corpuscular HGB Conc 32.8 g/dL (31.8-35.4); Mean Corpuscular Volume 85.4 fl (80-94); Mean Platelet Volume 9.1 fl (7.4-10.4); Monocytes # 0.7 K/mm3 (0.1-1.0); Monocytes % 5.4 % (1.7-9.3); Neutrophils # 9.5 K/mm3 (1.8-7.8); Neutrophils % 69.6 % (37.0-80.0); Nucleated Red Blood Cells # 0 10^3/uL; Nucleated Red Blood Cells % 0 %; Platelet Count 398 K/mm3 (142-424); Red Blood Count 2.68 M/mm3 (4.60-6.20); Red Cell Distribution Width 13.4 % (11.5-17.5); Red Cell Distribution Width-SD 41.7 fL; White Blood Count 13.7 K/mm3 (4.8-10.8)
--- NOTE | 2024-11-06 07:31 | US_ITS ---
FINAL REPORT CLINICAL HISTORY: AAA R/O-- hx of heart cath yesterday FINDINGS: ULTRASOUND ABDOMINAL AORTA Findings: Sagittal and transverse images with Doppler exam was performed of the aorta. There is no evidence of abdominal aortic aneurysm. Aorta measures up to 2.3 cm. Moderate plaque disease is noted. Proximal iliac vessels are normal in caliber. Aorta is patent by Doppler exam without gross stenosis. IMPRESSION: No evidence of aortic aneurysm Reviewed, Interpreted and Dictated by Dorota Ashley MD Transcribed by Miriam Arriaga Authenticated and [facility]
--- NOTE | 2024-11-06 08:06 | P.PN_ITS ---
Subjective *Date: 11/06/24 *Time: 09:00 Interval history: Patient states he does not feel well today. Describes pain in his lower abdomen. He is somewhat nauseated. He has not vomited. He describes dysuria. He was hot during the night. Patient does denies shortness of breath and chest pain. Laboratory data this morning shows a white blood cell count of 13,700 with a hemoglobin of 7.5 hematocrit of 22.9. Platelet count is normal at 398,000. Blood chemistries with a sodium of 132 and potassium of 4.4. BUN is 62 and creatinine is 1.2. Due to abdominal discomfort and drop in his hemoglobin patient had a CT of the abdomen pelvis which revealed no evidence of retroperitoneal hemorrhage. Exam Data for Last 24 hours Vital signs and Labs for Last 24 Hours: Temp Pulse Resp BP Pulse Ox O2 Del Method 98.5 F 99 H 16 107/65 L 99 Room Air 11/06/24 04:00 11/06/24 04:00 11/06/24 04:00 11/06/24 04:00 11/06/24 04:00 11/06/24 07:00 Laboratory Results - last 24 hr 11/05/24 04:45: HCV Ab RODOLFO w/Rflx PCR Qn Negative 11/05/24 08:02: Troponin I < 0.01 11/05/24 13:14: Activated Clotting Time > 400 H* 11/06/24 05:27: WBC 11.0 H, RBC 2.54 L D, Hgb 7.0 L, Hct 21.5 L, MCV 84.6, MCH 27.6, MCHC 32.6, RDW 13.3, Plt Count 343 D, MPV 9.5, Neut % (Auto) 74.9, Lymph % (Auto) 16.4, [place] % (Auto) 5.8, Eos % (Auto) 1.4, Baso % (Auto) 0.6, Neut # (Auto) 8.2 H, Lymph # (Auto) 1.8, [place] # (Auto) 0.6, Eos # (Auto) 0.2, Baso # (Auto) 0.1, Sodium 132 L, Potassium 4.4, Chloride 105, Carbon Dioxide 21 L, Anion Gap 10.4, BUN 62 H D, Creatinine 1.20, Estimated Creat Clear 56, Estimated GFR 62, Est GFR ( Amer) 74, Glucose 91, Calcium 7.7 L, Magnesium 2.0 D, Total Bilirubin 0.1 L, AST 22 D, ALT 9 L D, Alkaline Phosphatase 41, Total Protein 4.8 L D, Albumin 2.5 L D, Globulin 2.3, Albumin/Globulin Ratio 1.1 11/06/24 07:09: WBC 13.7 H, RBC 2.68 L, Hgb 7.5 L, Hct 22.9 L, MCV 85.4, MCH 28.0, MCHC 32.8, RDW 13.4, Plt Count 398, MPV 9.1, Neut % (Auto) 69.6, Lymph % (Auto) 21.9, [place] % (Auto) 5.4, Eos % (Auto) 1.3, Baso % (Auto) 0.7, Neut # (Auto) 9.5 H, Lymph # (Auto) 3.0, [place] # (Auto) 0.7, Eos # (Auto) 0.2, Baso # (Auto) 0.1, Blood Type Cancelled 11/06/24 07:09: Blood Type O Positive, Antibody Screen Cancelled, Crossmatch (AHG) See Detail I & O for Last 24 hours: Intake & Output 11/03/24 11/04/24 11/05/24 11/06/24 11:59 11:59 11:59 11:59 Intake Total 2020 Output Total 200 / 200 1670 / 1670 Balance -200 / -200 351 / 351 Weight 131 lb 14.441 oz 134 lb 3.2 oz Constitutional Constitutional: no acute distress Comments: He appears not to feel well. *Routine Respiratory Exam Respiratory: Present CTA bilaterally (Anteriorly and posteriorly) *Routine Cardiovascular Exam Cardiovascular: Present RRR *Routine Abdominal Exam Abdominal: Present soft, normoactive bowel sounds (Hyperactive) and tenderness (All lower quadrants); Absent distended *Routine Extremities Exam Extremities: Absent edema or calf tenderness *Routine Neurological Exam Neurological: Present alert and oriented X3 Assessment and Plan *Assessment and plan (1) Syncope: Status: Acute Qualifiers: Syncope type: unspecified Qualified Code(s): R55 - Syncope and collapse Category: Medical Code(s): R55 - Syncope and collapse (2) Chest pain: Status: Acute Qualifiers: Chest pain type: other chest pain Qualified Code(s): R07.89 - Other chest pain Category: Medical Code(s): R07.9 - Chest pain, unspecified (3) CAD (coronary artery disease): Status: Chronic Qualifiers: Associated angina: with other forms of angina Coronary Disease- Associated Artery/Lesion type: [place] artery [place] vs. transplanted heart: [place] heart Qualified Code(s): I25.118 - Atherosclerotic heart disease of [place] coronary artery with other forms of angina pectoris Category: Medical Code(s): I25.10 - Atherosclerotic heart disease of [place] coronary artery without angina pectoris (4) History of coronary artery stent placement: Status: Acute Category: Surgical Code(s): Z95.5 - Presence of coronary angioplasty implant and graft (5) Fatigue: Status: Chronic Qualifiers: Fatigue type: chronic, unspecified Qualified Code(s): R53.82 - Chronic fatigue, unspecified Category: Medical Code(s): R53.83 - Other fatigue (6) HTN (hypertension): Status: Acute Qualifiers: Hypertension type: unspecified Qualified Code(s): I10 - Essential (primary) hypertension Category: Medical Code(s): I10 - Essential (primary) hypertension (7) Abnormal weight loss: Status: Acute Category: Medical Code(s): R63.4 - Abnormal weight loss (8) Hyponatremia: Status: Acute Category: Medical Code(s): E87.1 - Hypo-osmolality and hyponatremia (9) Hypomagnesemia: Status: Acute Category: Medical Code(s): E83.42 - Hypomagnesemia (10) Anemia: Status: Acute Category: Medical Code(s): D64.9 - Anemia, unspecified Plan As per orders of Dr. Patton and Dr. Barillas: Patient will receive 2 units of packed red blood cells. He is having aortic ultrasound. CT of abdomen and pelvis has been completed. He will be started on a Protonix drip. Dr. Vinson has been consulted.
[2024-11-06] MEDS: PANTOPRAZOLE SODIUM 80 MG in 0.9 % SODIUM CHLORIDE 100 ML 10 MG IV ×2 (08:31→17:31)
--- NOTE | 2024-11-06 09:23 | EXP.CARD.PN ---
Subjective Subjective Date: 11/06/24 Time: 09:23 Principal diagnosis: Angina, GI bleed Interval history: 59-year-old white male lying in bed in no acute distress. Did not have a restful night due to multiple visits from nursing staff regarding his drop in hemoglobin and subsequent evaluation/therapies. Patient's hemoglobin dropped from 12.2 down to 7.5 post cardiac cath and stenting. Patient denies any abdominal pain and there is no significant bruising or hematoma at the femoral access site. Palpable pulses in the feet noted. Abdominal/pelvis CT this morning shows no evidence of retroperitoneal hemorrhage. IV Protonix and 2 units of blood have been ordered but not yet started. Consult for GI has been placed for further evaluation. Patient recently had upper and lower endoscopy within the last 12 months in an attempt to find out why he is losing weight. Per dietitian, she was informed that patient drinks about 12 Mountain Dew's per day for 2 days in a row and then will vomit for 2 days and then restart the cycle over again. He has over the last several months reduced his number of medications on his own because he felt like he was taking too many Exam Data for Last 24 hours Vital signs and Labs for Last 24 Hours: Temp Pulse Resp BP Pulse Ox O2 Del Method 98.5 F 99 H 16 107/65 L 99 Room Air 11/06/24 04:00 11/06/24 04:00 11/06/24 04:00 11/06/24 04:00 11/06/24 04:00 11/06/24 07:00 Laboratory Results - last 24 hr 11/05/24 04:45: HCV Ab RODOLFO w/Rflx PCR Qn Negative 11/05/24 13:14: Activated Clotting Time > 400 H* 11/06/24 05:27: WBC 11.0 H, RBC 2.54 L D, Hgb 7.0 L, Hct 21.5 L, MCV 84.6, MCH 27.6, MCHC 32.6, RDW 13.3, Plt Count 343 D, MPV 9.5, Neut % (Auto) 74.9, Lymph % (Auto) 16.4, [place] % (Auto) 5.8, Eos % (Auto) 1.4, Baso % (Auto) 0.6, Neut # (Auto) 8.2 H, Lymph # (Auto) 1.8, [place] # (Auto) 0.6, Eos # (Auto) 0.2, Baso # (Auto) 0.1, Sodium 132 L, Potassium 4.4, Chloride 105, Carbon Dioxide 21 L, Anion Gap 10.4, BUN 62 H D, Creatinine 1.20, Estimated Creat Clear 56, Estimated GFR 62, Est GFR ( Amer) 74, Glucose 91, Calcium 7.7 L, Magnesium 2.0 D, Total Bilirubin 0.1 L, AST 22 D, ALT 9 L D, Alkaline Phosphatase 41, Total Protein 4.8 L D, Albumin 2.5 L D, Globulin 2.3, Albumin/Globulin Ratio 1.1, Blood Type Confirm O Positive 11/06/24 07:09: WBC 13.7 H, RBC 2.68 L, Hgb 7.5 L, Hct 22.9 L, MCV 85.4, MCH 28.0, MCHC 32.8, RDW 13.4, Plt Count 398, MPV 9.1, Neut % (Auto) 69.6, Lymph % (Auto) 21.9, [place] % (Auto) 5.4, Eos % (Auto) 1.3, Baso % (Auto) 0.7, Neut # (Auto) 9.5 H, Lymph # (Auto) 3.0, [place] # (Auto) 0.7, Eos # (Auto) 0.2, Baso # (Auto) 0.1, Blood Type Cancelled 11/06/24 07:09: Blood Type O Positive, Antibody Screen Cancelled 11/06/24 07:09: Antibody Screen Negative, Crossmatch (AHG) See Detail I & O for Last 24 hours: Intake & Output 11/03/24 11/04/24 11/05/24 11/06/24 11:59 11:59 11:59 11:59 Intake Total 2020 Output Total 200 / 550 1670 / 1670 Balance -200 / -550 351 / 351 Weight 131 lb 14.441 oz 134 lb 3.2 oz Constitutional Constitutional: no acute distress *Routine Respiratory Exam Respiratory: Present CTA bilaterally *Routine Cardiovascular Exam Cardiovascular: Present RRR; Absent murmur, gallop or rubs *Routine Extremities Exam Extremities: Absent edema Progress Note: A&P Assessment and plan (1) Syncope: Status: Acute (2) Chest pain: Status: Acute (3) CAD (coronary artery disease): Status: Chronic (4) History of coronary artery stent placement: Status: Acute (5) Fatigue: Status: Chronic (6) HTN (hypertension): Status: Acute (7) Abnormal weight loss: Status: Acute (8) Hyponatremia: Status: Acute (9) Hypomagnesemia: Status: Acute (10) Anemia: Status: Acute Assessment and Plan Assessment and Plan for All Diagnoses:: 1. Chest pain with syncope -Troponins normal -EKG with poor R wave progression anteriorly, chronic with no acute changes this admission -MART to prox RCA on 11/05/2024 -DAPT with ASA/Plavix 2. Dysphagia with weight loss of greater than 30 pounds over the last 6 months -Recent GI evaluation without etiology over the last 10 months -LFTs and lipase normal 3. History of hypertension -Home medications have been decreased per patient (no metoprolol in a month, half dose of irbesartan) 4. Hyperlipidemia -LDL 104, 07/2024 off statin -resumed statin 11/06/2024 5. Electrolyte disorders (hyponatremia and hypomagnesemia) -Replacements ordered -Sodium 128 up to 132 and magnesium 1.4 up to 2.0 6. Chronic kidney disease, stage III -Creatinine 1.2 with GFR 62 this admission 7. Hypercalcemia at 11.8 -now down to 7.7 8. Anemia with dark black stool after coronary stenting with no evidence of retroperitoneal bleed on abdominal/pelvis CT -Hgb down to 7.0-7.5 -transfusing 2 units PRBC's -IV protonix -GI evaluation Transfused 2 units of blood IV Protonix started GI evaluation ordered Continue DAPT therapy due to coronary stenting yesterday Discussed with Dr. Barillas and will get abdominal CTA to assess for mesenteric ischemia in setting of decreased appetite, early satiety and wt loss.
--- NOTE | 2024-11-06 10:17 | CT_ITS ---
FINAL REPORT TECHNIQUE: Pre-and postcontrast images of the abdomen and pelvis were performed by computed tomography. Extensive 3-D reconstruction images were performed. A CTA was performed. This study was performed with techniques to keep radiation doses as low as reasonably achievable (ALARA). Individualized dose reduction techniques using automated exposure control or adjustment of mA and/or kV according to the patient''s size were employed. CLINICAL HISTORY: Early satiety, wt loss COMPARISON: Noncontrast CT performed earlier today. FINDINGS: ABDOMEN: The lung bases are clear. Gallbladder is normal. Precontrast images demonstrate no evidence of nephrolithiasis. There are numerous hypodensities in the bilateral kidneys which can be seen with infection, embolic infarcts or vasculitis. There is mild left renal atrophy. No adrenal masses are identified. The liver, spleen and pancreas are unremarkable. Bowel is unremarkable. There is no free fluid in the pelvis. Mild stranding is seen in the right inguinal region likely related to recent catheterization. CTA: The abdominal aorta is proper caliber. There is mild plaque disease without aneurysm or dissection. Celiac axis and SMA are widely patent. There are mild bilateral renal artery stenoses. There is a left renal artery stent in place. BIPIN is widely patent. Long segment stenoses are seen of the iliacs measuring up to 50%, left greater than right. There is no femoral artery pseudoaneurysm identified. IMPRESSION: No evidence of active bleeding or iliofemoral pseudoaneurysm. Iliac artery stenoses. Abnormal enhancement of the kidneys as above which could represent embolic disease or infection. Reviewed, Interpreted and Dictated by Dorota Ashley MD Transcribed by Miriam Arriaga Authenticated and [facility]
[2024-11-06 10:52] LABS: Microscopic, Urine URINE MICROSCOPIC (MICROSCOPIC)
[2024-11-06 10:54] LABS: Appearance,Urine CLEAR (Clear); Bilirubin,Urine Negative (Negative); Blood, Urine Negative (Negative); Color,Urine YELLOW (Yellow); Glucose,Urine (UA) Negative (Negative); Ketones,Urine Negative (Negative); Leukocyte Esterase,Urine Negative (Negative); Nitrate,Urine Negative (Negative); Protein,Urine Negative (Negative); Specific Gravity, Urine <= 1.005 (1.005-1.030); Urobilinogen,Urine 0.2 EU/dl (0.2)
[2024-11-06] MEDS: SODIUM CHLORIDE 0.9% 10ML SYR (RAD ONLY) 10 ML IV (11:20)
[2024-11-06] MEDS: 0.9 % SODIUM CHLORIDE 50 ML VIAL IV (11:20)
[2024-11-06] MEDS: IOPAMIDOL-370 (76%);100ML BOTTLE 100 ML IV (11:20)
--- NOTE | 2024-11-06 11:30 | PC.NURSE ---
Patient needed a second iv access to give blood transfusion and protonix drip. Attempted to gain access by three rn's but unable to do so. US IV was obtained but RN stated patient had very little options if patient needed other access. Dr. Patton and Dr. Barillas notified of difficulty obtaining access and decision to insert central line was made. Patient also moved to stepdown due to medical concerns of possible decompensation and the need for close monitoring.
[2024-11-06 11:38] LABS: Bacteria,Urine Trace /lpf
--- NOTE | 2024-11-06 11:53 | XR_ITS ---
FINAL REPORT TECHNIQUE: Single view chest CLINICAL HISTORY: central line placement COMPARISON: 11/05/2024 FINDINGS: A single view of the chest was obtained. There is a left subclavian central venous catheter with the tip in the SVC. The heart and mediastinum are within normal limits. The lungs are clear. There is no pneumothorax. IMPRESSION: No acute cardiopulmonary process. Left subclavian central venous catheter with the tip in the SVC. Reviewed, Interpreted and Dictated by Dorota Ashley MD Transcribed by Miriam Arriaga Authenticated and [facility]
[2024-11-06] MEDS: MORPHINE 4MG/ML SYRINGE 8 MG IV (12:00)
--- NOTE | 2024-11-06 12:14 | PC.NURSE ---
Assisted Zac Barillas MD with insertion of cental line, pt drapped in sterile fashion and began insertion. Consent signed bt pt SO per pt request. Pt tolerated procedure, blood return via all 3 ports, x-ray t verify placement
[2024-11-06] MEDS: ASPIRIN EC 81MG TABLET 81 MG PO (12:18)
[2024-11-06] MEDS: CLOPIDOGREL 75MG TAB 75 MG PO (12:19)
[2024-11-06] MEDS: METOCLOPRAMIDE 5MG TABLET 5 MG PO ×2 (12:19→15:50)
--- NOTE | 2024-11-06 12:19 | PC.NURSE ---
Dr Barillas verified placement of central line on x-ray
--- NOTE | 2024-11-06 13:18 | P.CONS_ITS ---
History of Present Illness *Admission Date: 11/05/24 *History of present illness: 59-year-old male with a of coronary artery disease, hypertension, chronic kidney disease, COPD presents for chest pain. He reports he has been feeling generally weak and bad over the last few days. He started having chest pain and shortness of breath yesterday. This morning when he woke up he was not feeling well. He was in the shower and apparently passed out. His significant other heard a crash and came into the bathroom and found him. Family thinks that he passed out because he has not been eating or drinking much. He has had weight loss. He admits depression related to these unresolved issues. He has been having issues for months, has seen a GI doctor, has had endoscopy by Dr. Vinson, has seen a vascular surgeon, Dr. Cid, but they have never been able to follow-up with a satisfactory explanation for his symptoms. He has had recent past cardiology evaluations. Including a heart cath 08/12/23. He has even been screened for AlphaGal. Recently has gone off of some medications. Taking 1/2 dose of Irbesartan 150mg and 1/2 of Clopidogrel 75mg. Recent RX pramipexole. Per H&P This is a 59-year-old male who saw Dr. Vinson in May for EGD with concerns for nausea, retrosternal chest pressure, dysphagia/difficulty swallowing and globus sensation. He has lost weight. Patient has already seen GI in [place] and had a panendoscopy. No significant findings on EGD but for blanching of the gastric mucosa that was concerning for gastric or mesenteric angina. The patient followed back up with Dr. Douglas again after discussion with Dr. Vinson who still felt that there was no evidence of arterial abnormalities. The patient is status postacute [place] in May 2023. He has been on Plavix. He has seen Dr. Khoury previously for chronic anemia felt likely to be related to chronic renal dysfunction. Patient's hemoglobin normally runs between 10 and 12. He did have a syncopal episode at home and was found to be acutely dehydrated upon arrival to the ER with very low sodium and magnesium levels. He was treated with 2 L normal saline in the ER and placed on 100 mL/h afterwards. His hemoglobin was 12.2 initially. He was seen by cardiology and underwent heart cath yesterday about 1:00. He did have single stent placed. Was treated with heparin and then daily Lovenox. Patient had a drop in hemoglobin down to 7.0 and then 7.5, normocytic and normochromic. He reports a single episode of melena in stool this morning. He has not had any further bleeding or melena. We are awaiting Hemoccult testing if he has another bowel movement. BUN elevated at 62. He is currently receiving 2 units packed red cells. No hypotension. He is mildly tachycardic intermittently. Patient reports he feels terrible . He is able to answer questions appropriately [facility] Disclaimer: The information contained in this section may have been updated after the patient was seen, as this information can be updated by other users. Medical History (Updated 11/06/24 @ 14:33 by Gita Joseph APRN) Hyponatremia Depression HTN (hypertension) Renal artery stenosis Chronic renal insufficiency, stage II (mild) Metatarsal fracture Fatigue SMOOTH (obstructive sleep apnea) COPD (chronic obstructive pulmonary disease) Pectus excavatum Right atrial enlargement Tobacco user HLD (hyperlipidemia) CAD (coronary artery disease) Surgical History History of neck surgery History of coronary artery stent placement H/O shoulder surgery Hx of knee surgery Family History Father Family history of myocardial infarction Social History (Updated 11/05/24 @ 09:21 by Polina Cobian RN) Smoking Status: Current every day smoker tobacco type: cigarettes packs per day: 1 second hand exposure: Yes alcohol intake: never substance use type: denies use current occupational status: employed Travel in the last 8 weeks?: None household members: significant other housing: house current occupation: [employer] current occupational exposures/hazards: No caffeine: Yes Have you lived/traveled outside [place] in past 30 days?: No Contact w/someone who lives/traveled outside US past 30 days?: No Exposure to someone with infectious disease in past 14 days?: No Do you have a fever (greater than 100.4 F or 38 C)?: No Have you tested positive for COVID-19?: No Exposed to someone with COVID-19 in past 14 days?: No Do you have a sore throat?: No Do you have a cough?: No Do you have any weakness?: No Do you have any diarrhea?: No Are you experiencing any unusual bleeding?: No Do you have any muscle aches/pain?: No Do you have any abdominal pain?: No Are you experiencing loss of taste or smell?: No Review of Systems *Cardiovascular Cardiovascular: Reports syncope *Neurologic Neurologic: Reports as per HPI, Denies convulsions and Reports syncope Meds Home Medications and Allergies Home Medications ?Medication ?Instructions ?Recorded ?Confirmed ?Type nitroglycerin 0.4 mg sublingual 0.4 mg sublingual Q5MI REBAR FAB[employer]ICATOR PRN Chest 08/13/24 11/05/24 History tablet Pain azelastine 137 mcg-fluticasone 50 1 spray intranasal B ID 11/05/24 11/05/24 History mcg/spray nasal spray clopidogrel 75 mg tablet 37.5 mg PO DAILY 11/05/24 History irbesartan 150 mg tablet 75 mg PO DAILY 11/05/2410/15 History ondansetron 8 mg disintegrating 8 mg PO Q12HP PRN naus ea and 11/05/24 11/05/24 History tablet vomiting pramipexole 0.125 mg tablet 0.125 mg PO DAILY 11/05/24 11/05/24 History New Prescriptions to Start Prescriptions: Allergies Allergy/AdvReac Type Severity Reaction Status Date / Time No Known Allergies Allergy Verified 11/02/24 10:44 Exam (Inpt) Vital signs and Labs for Last 24 Hours: Temp Pulse Resp BP Pulse Ox O2 Del Method 98.1 F 89 18 107/65 L 99 Room Air 11/06/24 12:40 11/06/24 12:40 11/06/24 12:40 11/06/24 12:40 11/06/24 12:40 11/06/24 08:00 Laboratory Results - last 24 hr 11/05/24 13:14: Activated Clotting Time > 400 H* 11/06/24 05:27: WBC 11.0 H, RBC 2.54 L D, Hgb 7.0 L, Hct 21.5 L, MCV 84.6, MCH 27.6, MCHC 32.6, RDW 13.3, Plt Count 343 D, MPV 9.5, Neut % (Auto) 74.9, Lymph % (Auto) 16.4, [place] % (Auto) 5.8, Eos % (Auto) 1.4, Baso % (Auto) 0.6, Neut # (Auto) 8.2 H, Lymph # (Auto) 1.8, [place] # (Auto) 0.6, Eos # (Auto) 0.2, Baso # (Auto) 0.1, Sodium 132 L, Potassium 4.4, Chloride 105, Carbon Dioxide 21 L, Anion Gap 10.4, BUN 62 H D, Creatinine 1.20, Estimated Creat Clear 56, Estimated GFR 62, Est GFR ( Amer) 74, Glucose 91, Calcium 7.7 L, Magnesium 2.0 D, Total Bilirubin 0.1 L, AST 22 D, ALT 9 L D, Alkaline Phosphatase 41, Total Protein 4.8 L D, Albumin 2.5 L D, Globulin 2.3, Albumin/Globulin Ratio 1.1, Blood Type Confirm O Positive 11/06/24 07:09: WBC 13.7 H, RBC 2.68 L, Hgb 7.5 L, Hct 22.9 L, MCV 85.4, MCH 28.0, MCHC 32.8, RDW 13.4, Plt Count 398, MPV 9.1, Neut % (Auto) 69.6, Lymph % (Auto) 21.9, [place] % (Auto) 5.4, Eos % (Auto) 1.3, Baso % (Auto) 0.7, Neut # (Auto) 9.5 H, Lymph # (Auto) 3.0, [place] # (Auto) 0.7, Eos # (Auto) 0.2, Baso # (Auto) 0.1, Blood Type Cancelled 11/06/24 07:09: Blood Type O Positive, Antibody Screen Cancelled 11/06/24 07:09: Antibody Screen Negative, Crossmatch (AHG) See Detail 11/06/24 07:42: Urine Color Yellow, Urine Appearance Clear, Urine pH 6.0, Ur Specific [place] <= 1.005, Urine Protein Negative, Urine Glucose (UA) Negative, Urine Ketones Negative, Urine Blood Negative, Urine Nitrate Negative, Urine Bilirubin Negative, Urine Urobilinogen 0.2, Ur Leukocyte Esterase Negative, Urine RBC None, Urine WBC 3-5, Ur Squamous Epith Cells 3-5, Urine Bacteria Trace I & O for Labs for Last 24 Hours: Intake & Output 11/04/24 11/05/24 11/06/24 11/07/24 11:59 11:59 11:59 11:59 Intake Total 2021 0 Output Total 200 1670 Balance -200 351 0 Weight 59.83 kg 60.872 kg Results Labs 11/06/24 07:09 11/06/24 05:27 Labs: Laboratory Results - last 24 hr 11/05/24 13:14: Activated Clotting Time > 400 H* 11/06/24 05:27: WBC 11.0 H, RBC 2.54 L D, Hgb 7.0 L, Hct 21.5 L, MCV 84.6, MCH 27.6, MCHC 32.6, RDW 13.3, Plt Count 343 D, MPV 9.5, Neut % (Auto) 74.9, Lymph % (Auto) 16.4, [place] % (Auto) 5.8, Eos % (Auto) 1.4, Baso % (Auto) 0.6, Neut # (Auto) 8.2 H, Lymph # (Auto) 1.8, [place] # (Auto) 0.6, Eos # (Auto) 0.2, Baso # (Auto) 0.1, Sodium 132 L, Potassium 4.4, Chloride 105, Carbon Dioxide 21 L, Anion Gap 10.4, BUN 62 H D, Creatinine 1.20, Estimated Creat Clear 56, Estimated GFR 62, Est GFR ( Amer) 74, Glucose 91, Calcium 7.7 L, Magnesium 2.0 D, Total Bilirubin 0.1 L, AST 22 D, ALT 9 L D, Alkaline Phosphatase 41, Total Protein 4.8 L D, Albumin 2.5 L D, Globulin 2.3, Albumin/Globulin Ratio 1.1, Blood Type Confirm O Positive 11/06/24 07:09: WBC 13.7 H, RBC 2.68 L, Hgb 7.5 L, Hct 22.9 L, MCV 85.4, MCH 28.0, MCHC 32.8, RDW 13.4, Plt Count 398, MPV 9.1, Neut % (Auto) 69.6, Lymph % (Auto) 21.9, [place] % (Auto) 5.4, Eos % (Auto) 1.3, Baso % (Auto) 0.7, Neut # (Auto) 9.5 H, Lymph # (Auto) 3.0, [place] # (Auto) 0.7, Eos # (Auto) 0.2, Baso # (Auto) 0.1, Blood Type Cancelled 11/06/24 07:09: Blood Type O Positive, Antibody Screen Cancelled 11/06/24 07:09: Antibody Screen Negative, Crossmatch (AHG) See Detail 11/06/24 07:42: Urine Color Yellow, Urine Appearance Clear, Urine pH 6.0, Ur Specific [place] <= 1.005, Urine Protein Negative, Urine Glucose (UA) Negative, Urine Ketones Negative, Urine Blood Negative, Urine Nitrate Negative, Urine Bilirubin Negative, Urine Urobilinogen 0.2, Ur Leukocyte Esterase Negative, Urine RBC None, Urine WBC 3-5, Ur Squamous Epith Cells 3-5, Urine Bacteria Trace Assessment and Plan *Assessment and plan (1) Anemia: Status: Acute Category: Medical Code(s): D64.9 - Anemia, unspecified (2) Complaint of melena: Status: Acute Category: Medical Code(s): K92.1 - Melena Plan Patient has chronic anemia usually hemoglobin runs between 10 and 12. He was dehydrated on admission and received 2 L of normal saline in the ER and then placed on IV fluids 100 mL/h afterwards. Did undergo cardiac cath with heparin yesterday afternoon. He is normally on Plavix. Single episode of black stool this morning. No further melena. Awaiting Hemoccult testing if patient has another bowel. Patient is currently getting his first of 2 packed red blood cell units infused. Blood pressure is stable. Heart rate, mildly tachycardic. No chest pain. Is on both sucralfate and high-dose Protonix. No findings of ulcer or other concerning abnormality that would lead to blood loss on EGD in May but a current [place] score of 11. Dr. Vinson is out for the week. I believe it is reasonable to let the patient complete both packed red cell infusions and stabilize. We can reevaluate in the morning with the Hemoccult result and repeat hemoglobin testing. If he has further melena, recommend EGD and can discuss with Dr. Valderrama in the morning.
--- NOTE | 2024-11-06 13:34 | PC.NURSE ---
pt arrived to the ICU via bed with ICU and med/surg staff
[2024-11-06] MEDS: ONDANSETRON 4MG/2ML VIAL 4 MG IV (16:58)
--- NOTE | 2024-11-06 17:01 | PC.NURSE ---
pt alert and oriented. lung sounds cta. NSR on monitor. left subclavian triple lumen noted. abdomen soft, intermittent pain to lower abdomen. pt reports tenderness has improved since this am. No bm or vomiting since transferring to unit. pt has reported one episode of nausea, medicated per jul. pt voiding per urinal. pt received 2 units of blood this shift. pt has been sleeping intermittently. family at bedside. call light w/i reach.
[2024-11-06 17:09] LABS: POC Glucose,Bedside 91 (70-110)
--- NOTE | 2024-11-06 17:19 | PC.NURSE ---
password set up at this time: [id number].
--- NOTE | 2024-11-06 17:28 | PC.NURSE ---
lab at bedside for post H&H.
[2024-11-06 17:39] LABS: Hematocrit 25.1 % (42.0-52.0)
[2024-11-06 17:48] LABS: Hemoglobin 8.7 g/dL (14.1-18.0)
--- NOTE | 2024-11-06 18:56 | PC.NURSE ---
sequential hose placed at this time.
[2024-11-06] MEDS: ATORVASTATIN 40MG TABLET 40 MG PO (20:31)
--- NOTE | 2024-11-06 21:00 | PC.NURSE ---
Order rec. Via telephone from Dr Patton for H&H now and CBC and BMP in the morning
[2024-11-06 21:11] LABS: Hematocrit 25.7 % (42.0-52.0); Hemoglobin 8.7 g/dL (14.1-18.0)
[2024-11-07] VITALS (11 sets, daily range): BP systolic 115–166; BP diastolic 63–72; PULSE 68–91; RESP 13–19; TEMP 36.7–37.1; O2SAT 97–100; BMI 20.7
[2024-11-07] MEDS: PANTOPRAZOLE SODIUM 80 MG in 0.9 % SODIUM CHLORIDE 100 ML 10 MG IV ×4 (03:07→22:15)
[2024-11-07 04:37] LABS: Basophils # 0.1 K/mm3 (0-0.2); Basophils % 0.8 % (0.1-2.0); Eosinophils # 0.2 Kmm3 (0.0-0.4); Eosinophils % 2.6 % (0.1-12.0); Hematocrit 23.5 % (42.0-52.0); Hemoglobin 8.1 g/dL (14.1-18.0); Immature Granulocytes # 0.05 10^3uL; Immature Granulocytes % 0.6 %; Lymphocytes # 1.3 K/mm3 (0.7-4.5); Lymphocytes % 14.8 % (10-50); Mean Corpuscular HGB Conc 34.5 g/dL (31.8-35.4); Mean Corpuscular Hemoglobin 29.5 pg (27.0-31.2); Mean Corpuscular Volume 85.5 fl (80-94); Mean Platelet Volume 9.5 fl (7.4-10.4); Monocytes # 0.8 K/mm3 (0.1-1.0); Monocytes % 9.2 % (1.7-9.3); Neutrophils # 6.3 K/mm3 (1.8-7.8); Nucleated Red Blood Cells # 0 10^3/uL; Nucleated Red Blood Cells % 0 %; Platelet Count 268 K/mm3 (142-424); Red Blood Count 2.75 M/mm3 (4.60-6.20); Red Cell Distribution Width 13.9 % (11.5-17.5); Red Cell Distribution Width-SD 43.1 fL; White Blood Count 8.7 K/mm3 (4.8-10.8)
[2024-11-07 04:54] LABS: Anion Gap 7.9 mEq/L (5-15); Blood Urea Nitrogen 42 mg/dl (9-20); Calcium 8.2 mg/dl (8.4-10.2); Carbon Dioxide 22 mmol/L (22.0-30.0); Chloride 105 mmol/L (98-107); Creatinine Clearance Estimated 52 mL/min (50-200); Estimated Glomerular Filt Rate 56 ml/min (>60); GFR (African American) 68 ML/MIN (>60); Glucose 94 mg/dl (74-100); Potassium 3.9 mmoL/L (3.5-5.1); Sodium 131 mmol/L (136-145)
[2024-11-07] MEDS: METOCLOPRAMIDE 5MG TABLET 5 MG PO ×3 (06:53→15:35)
[2024-11-07] MEDS: SUCRALFATE 1GM/10ML SUSP UDC 1 GM PO ×4 (06:53→20:33)
[2024-11-07] MEDS: IRBESARTAN 75MG TABLET 75 MG PO (08:21)
[2024-11-07] MEDS: CLOPIDOGREL 75MG TAB 75 MG PO (08:21)
--- NOTE | 2024-11-07 08:27 | P.PN_ITS ---
Subjective *Date: 11/07/24 *Time: 08:27 Interval history: Patient is feeling a little better today. He denies any pain. He has been seen by cardiology and GI. He was able to eat a small amount. Medical Exam Vital signs and Labs for Last 24 Hours: Vital Signs Temp Pulse Pulse Resp BP BP Pulse Ox 11/07/24 08:00 80 11/07/24 08:00 98.6 F 81 13 136/68 98 11/07/24 06:52 11/07/24 06:00 68 14 140/72 100 11/07/24 05:00 11/07/24 04:00 76 11/07/24 04:00 76 16 154/68 H 99 11/07/24 03:00 11/07/24 02:01 77 14 166/71 H 100 11/07/24 02:00 17 11/07/24 00:45 11/07/24 00:00 91 H 11/07/24 00:00 98.7 F 78 14 149/72 H 98 11/06/24 23:00 11/06/24 22:00 83 14 156/75 H 99 11/06/24 21:00 79 17 157/66 H 100 11/06/24 21:00 11/06/24 20:00 77 11/06/24 20:00 11/06/24 20:00 98.6 F 78 16 147/73 H 99 11/06/24 19:00 11/06/24 19:00 78 14 132/68 99 11/06/24 18:59 80 18 144/70 H 99 11/06/24 16:46 11/06/24 16:34 98.8 F 78 18 140/68 100 11/06/24 16:32 98.5 F 79 18 134/67 100 11/06/24 16:00 90 11/06/24 16:00 98.5 F 75 18 110/68 100 11/06/24 15:50 98.0 F 80 18 100 11/06/24 15:45 98.0 F 80 18 128/70 100 11/06/24 15:30 98.0 F 85 18 129/70 100 11/06/24 15:15 98.0 F 87 18 128/67 100 11/06/24 15:10 98.0 F 101 H 18 82/64 L 100 11/06/24 15:05 98.0 F 89 18 122/65 100 11/06/24 15:00 11/06/24 15:00 98.0 F 75 18 126/63 100 11/06/24 14:50 82 18 139/57 L 100 11/06/24 14:45 82 18 139/51 L 100 11/06/24 14:10 78 18 116/62 100 11/06/24 14:03 100 11/06/24 13:40 80 11/06/24 13:34 98.0 F 86 18 113/61 100 11/06/24 13:10 98.1 F 85 16 110/64 100 11/06/24 13:00 11/06/24 12:55 98.0 F 70 16 120/77 100 11/06/24 12:40 98.1 F 89 18 107/65 L 99 11/06/24 12:25 98.1 F 95 H 18 108/62 L 100 11/06/24 12:20 97.8 F 98 H 18 116/59 L 99 11/06/24 12:15 98.1 F 103 H 18 89/59 L 100 11/06/24 12:10 98.0 F 90 18 90/55 L 100 11/06/24 12:00 100 H 11/06/24 12:00 98.0 F 92 H 18 122/64 96 11/06/24 11:00 O2 Del Method 11/07/24 08:00 11/07/24 08:00 Room Air 11/07/24 06:52 Room Air 11/07/24 06:00 11/07/24 05:00 Room Air 11/07/24 04:00 11/07/24 04:00 11/07/24 03:00 Room Air 11/07/24 02:01 11/07/24 02:00 Room Air 11/07/24 00:45 Room Air 11/07/24 00:00 11/07/24 00:00 Room Air 11/06/24 23:00 Room Air 11/06/24 22:00 11/06/24 21:00 11/06/24 21:00 Room Air 11/06/24 20:00 11/06/24 20:00 Room Air 11/06/24 20:00 11/06/24 19:00 Room Air 11/06/24 19:00 Room Air 11/06/24 18:59 Room Air 11/06/24 16:46 Room Air 11/06/24 16:34 11/06/24 16:32 Room Air 11/06/24 16:00 11/06/24 16:00 11/06/24 15:50 Room Air 11/06/24 15:45 11/06/24 15:30 11/06/24 15:15 11/06/24 15:10 11/06/24 15:05 11/06/24 15:00 Room Air 11/06/24 15:00 11/06/24 14:50 11/06/24 14:45 11/06/24 14:10 11/06/24 14:03 11/06/24 13:40 11/06/24 13:34 Room Air 11/06/24 13:10 11/06/24 13:00 Room Air 11/06/24 12:55 11/06/24 12:40 11/06/24 12:25 11/06/24 12:20 11/06/24 12:15 11/06/24 12:10 11/06/24 12:00 11/06/24 12:00 11/06/24 11:00 Room Air Intake and Output 11/06/24 11/07/24 11/07/24 19:59 03:59 11:59 Intake Total 738.11 / 2563.11 1825 / 2563.11 Output Total 600 / 1949 450 / 1950 900 / 1950 Balance 138.11 / 613.11 -450 / 613.11 925 / 613.11 Intake: Intake, Oral Amount 120 / 360 240 / 360 Intake, Total IV Amount 365 / 1950 1585 / 1950 0.9 % Sodium Chloride 1000ML 1, 161 / 1602 1441 / 1602 000 ml @ 100 mls/hr IV .Q10H LASHON Rx#:[id number] Pantoprazole Sodium 80 mg In 0. 204 / 348 144 / 348 9 % Sodium Chloride 100 ml @ 10 mls/hr IV .Q10H LASHON Rx#: [id number] Intake (Blood Product) Amt 253.11 / 253.11 Red Blood Cells Unit 3.11 / 3.11 [id number] Red Blood Cells Unit 250 / 250 [id number] Output: Output, Urine Amount 600 / 1950 450 / 1950 900 / 1950 Other: Number of Voids 1 Weight 136 lb 11.2 oz Patient Weight 11/07/24 11:59 Weight 136 lb 11.2 oz Laboratory Results - last 24 hr 11/06/24 05:27: Blood Type Confirm O Positive 11/06/24 07:09: Blood Type O Positive, Antibody Screen Negative, Crossmatch (AHG) See Detail 11/06/24 07:42: Urine Color Yellow, Urine Appearance Clear, Urine pH 6.0, Ur Specific [place] <= 1.005, Urine Protein Negative, Urine Glucose (UA) Negative, Urine Ketones Negative, Urine Blood Negative, Urine Nitrate Negative, Urine Bilirubin Negative, Urine Urobilinogen 0.2, Ur Leukocyte Esterase Negative, Urine RBC None, Urine WBC 3-5, Ur Squamous Epith Cells 3-5, Urine Bacteria Trace 11/06/24 17:02: POC Glucose 91 11/06/24 17:30: Hgb 8.7 L D, Hct 25.1 L 11/06/24 21:06: Hgb 8.7 L, Hct 25.7 L 11/07/24 04:13: WBC 8.7 D, RBC 2.75 L, Hgb 8.1 L, Hct 23.5 L, MCV 85.5, MCH 29.5, MCHC 34.5, RDW 13.9, Plt Count 268 D, MPV 9.5, Neut % (Auto) 72.0, Lymph % (Auto) 14.8, [place] % (Auto) 9.2, Eos % (Auto) 2.6, Baso % (Auto) 0.8, Neut # (Auto) 6.3, Lymph # (Auto) 1.3, [place] # (Auto) 0.8, Eos # (Auto) 0.2, Baso # (Auto) 0.1, Sodium 131 L, Potassium 3.9, Chloride 105, Carbon Dioxide 22, Anion Gap 7.9, BUN 42 H D, Creatinine 1.30 H, Estimated Creat Clear 52, Estimated GFR 56 L, Est GFR ( Amer) 68, Glucose 94, Calcium 8.2 L I & O for Labs for Last 24 Hours: Intake & Output 11/04/24 11/05/24 11/06/24 11/07/24 11:59 11:59 11:59 11:59 Intake Total 2020 2563.11 / 2563.11 Output Total 200 / 550 1670 / 1670 1950 / 1949 Balance -200 / -550 351 / 351 613.11 / 613.11 Weight 131 lb 14.441 oz 134 lb 3.2 oz 136 lb 11.2 oz Constitutional: Present no acute distress Respiratory: Present normal respiratory effort Cardiac: Present Reg Rate and Rhythm GI: Present normal bowel sounds; Absent tenderness Extremities: Present normal inspection and full ROM Skin: Present intact; Absent erythema Neuro: Present Grossly Intact and moves all extremities Assessment and Plan *Assessment and plan (1) Syncope: Status: Acute Qualifiers: Syncope type: unspecified Qualified Code(s): R55 - Syncope and collapse Category: Medical Code(s): R55 - Syncope and collapse (2) Chest pain: Status: Acute Qualifiers: Chest pain type: other chest pain Qualified Code(s): R07.89 - Other chest pain Category: Medical Code(s): R07.9 - Chest pain, unspecified (3) CAD (coronary artery disease): Status: Chronic Qualifiers: Coronary Disease-Associated Artery/Lesion type: [place] artery [place] vs. transplanted heart: [place] heart Associated angina: with other forms of angina Qualified Code(s): I25.118 - Atherosclerotic heart disease of [place] coronary artery with other forms of angina pectoris Category: Medical Code(s): I25.10 - Atherosclerotic heart disease of [place] coronary artery without angina pectoris (4) History of coronary artery stent placement: Status: Acute Category: Surgical Code(s): Z95.5 - Presence of coronary angioplasty implant and graft (5) Fatigue: Status: Chronic Qualifiers: Fatigue type: chronic, unspecified Qualified Code(s): R53.82 - Chronic fatigue, unspecified Category: Medical Code(s): R53.83 - Other fatigue (6) HTN (hypertension): Status: Acute Qualifiers: Hypertension type: unspecified Qualified Code(s): I10 - Essential (primary) hypertension Category: Medical Code(s): I10 - Essential (primary) hypertension (7) Abnormal weight loss: Status: Acute Category: Medical Code(s): R63.4 - Abnormal weight loss (8) Hyponatremia: Status: Acute Category: Medical Code(s): E87.1 - Hypo-osmolality and hyponatremia (9) Hypomagnesemia: Status: Acute Category: Medical Code(s): E83.42 - Hypomagnesemia (10) Anemia: Status: Acute Category: Medical Code(s): D64.9 - Anemia, unspecified Plan HGB is down to 8.1 today. Aortic ultrasound shows no aneurysm. CT of abdomen and pelvis showed no evidence of active bleeding or iliofemoral pseudoaneurysm. Iliac artery stenoses and abnormal enhancement of the kidneys which could represent embolic disease or infection. Cardiology and GI to follow. Will discuss further care with Dr. Patton.
[2024-11-07] MEDS: ONDANSETRON 4MG/2ML VIAL 4 MG IV (08:28)
[2024-11-07] MEDS: 0.9 % SODIUM CHLORIDE 1000ML 1,000 ML 100 ML IV (09:00)
--- NOTE | 2024-11-07 11:01 | P.PN_ITS ---
Subjective Subjective Date: 11/07/24 Time: 10:00 Principal diagnosis: Angina, GI bleed Interval history: No further BM overnight. Denies CP and abomdinal pain. Vitals stable. Hgb 8. Exam Data for Last 24 hours Vital signs and Labs for Last 24 Hours: Temp Pulse Resp BP Pulse Ox O2 Del Method 98.6 F 73 13 129/65 100 Room Air 11/07/24 08:00 11/07/24 10:46 11/07/24 08:00 11/07/24 10:46 11/07/24 08:00 11/07/24 08:46 Laboratory Results - last 24 hr 11/06/24 07:09: Blood Type O Positive, Antibody Screen Negative, Crossmatch (AHG) See Detail 11/06/24 07:30: Cortisol 14.2 11/06/24 07:42: Urine RBC None, Urine WBC 3-5, Ur Squamous Epith Cells 3-5, Urine Bacteria Trace 11/06/24 17:02: POC Glucose 91 11/06/24 17:30: Hgb 8.7 L D, Hct 25.1 L 11/06/24 21:06: Hgb 8.7 L, Hct 25.7 L 11/07/24 04:13: WBC 8.7 D, RBC 2.75 L, Hgb 8.1 L, Hct 23.5 L, MCV 85.5, MCH 29.5, MCHC 34.5, RDW 13.9, Plt Count 268 D, MPV 9.5, Neut % (Auto) 72.0, Lymph % (Auto) 14.8, [place] % (Auto) 9.2, Eos % (Auto) 2.6, Baso % (Auto) 0.8, Neut # (Auto) 6.3, Lymph # (Auto) 1.3, [place] # (Auto) 0.8, Eos # (Auto) 0.2, Baso # (Auto) 0.1, Sodium 131 L, Potassium 3.9, Chloride 105, Carbon Dioxide 22, Anion Gap 7.9, BUN 42 H D, Creatinine 1.30 H, Estimated Creat Clear 52, Estimated GFR 56 L, Est GFR ( Amer) 68, Glucose 94, Calcium 8.2 L I & O for Last 24 hours: Intake & Output 11/04/24 11/05/24 11/06/24 06/25/25 23:59 23:59 23:59 23:59 Intake Total 360 / 600 2399.11 / 2399.11 1825 / 1825 Output Total 1020 / 1020 1600 / 1600 1350 / 1350 Balance -660 / -420 799.11 / 799.11 475 / 475 Weight 131 lb 14.441 oz 134 lb 3.2 oz 136 lb 11.2 oz Constitutional Constitutional: no acute distress and cooperative *Routine HEENT Exam Eye: Present PERRL *Routine Respiratory Exam Respiratory: Present CTA bilaterally; Absent accessory muscle use, wheezes or crackles *Routine Cardiovascular Exam Cardiovascular: Present RRR, Normal S1 and Normal S2; Absent murmur, gallop or rubs Comments: right groin cath site soft/normal on inspectin and palpation *Routine Abdominal Exam Abdominal: Present soft; Absent tenderness *Routine Extremities Exam Extremities: Present pulses intact; Absent cyanosis or edema *Routine Skin Exam Skin: Present intact; Absent erythema or wounds *Routine Neurological Exam Neurological: Present alert and oriented X3 Routine Psychiatric Exam Psychiatric: Present cooperative Progress Note: A&P Assessment and plan (1) Syncope: Status: Acute (2) Chest pain: Status: Acute (3) CAD (coronary artery disease): Status: Chronic (4) History of coronary artery stent placement: Status: Acute (5) Fatigue: Status: Chronic (6) HTN (hypertension): Status: Acute (7) Abnormal weight loss: Status: Acute (8) Hyponatremia: Status: Acute (9) Hypomagnesemia: Status: Acute (10) Anemia: Status: Acute Assessment and Plan Assessment and Plan for All Diagnoses:: 1. CAD with with syncope -Troponins normal -EKG with poor R wave progression anteriorly, chronic with no acute changes this admission -MART to prox RCA on 11/05/2024 -DAPT on hold, Plavix only due to GI bleed. Discussed risk/benefits with pt/family and possibility of stent thrombosis. Advised immediate medical care if CP. 2. Dysphagia with weight loss of greater than 30 pounds over the last 6 months -Recent GI evaluation without etiology over the last 10 months -LFTs and lipase normal -melena here x1 with hgb drop from 12 to 7. GI following. -neg for mesentric ischemia per recent vascular surgeyr evaluation, Dr. Pennington. 3. History of hypertension -Home medications have been decreased per patient due to weight loss and decreased PO intake (no metoprolol in a month, half dose of irbesartan) 4. Hyperlipidemia -LDL 104, 07/2024 off statin -resumed statin 11/06/2024 5. Electrolyte disorders (hyponatremia and hypomagnesemia) -Replacements ordered -Sodium 128 up to 132 and magnesium 1.4 up to 2.0 6. Chronic kidney disease, stage III -Creatinine 1.2 with GFR 62 this admission 7. Hypercalcemia at 11.8 -now down to 7.7 8. Anemia with dark black stool after coronary stenting with no evidence of retroperitoneal bleed on abdominal/pelvis CT -Hgb down to 7.0-7.5 -transfusing 2 units PRBC's -IV protonix -GI evaluation - had normal pandendoscopy in May. They are approaching with watchful/waiting for now. Gen Surg consult if further melena. CV stable, no changes today. Will recheck orthostatics and monitor for further bleeding.
--- NOTE | 2024-11-07 12:47 | P.CONS_ITS ---
History of Present Illness *Admission Date: 11/05/24 *Reason for visit:: Possible gastrointestinal hemorrhage *History of present illness: This is a 59-year-old gentleman seen in consultation for possible esophagogastroduodenoscopy. He has a complex medical history and has undergone multiple interventions over the past few months including esophagogastroduodenoscopy in May of this year (Dr. Vinson). He underwent heart cath on November 05, 2024. A significant drop in hemoglobin noted status post heart cath. No obvious evidence of procedural hemorrhage. 1 reported episode of melena noted. He underwent transfusion of 2 units of packed red blood cells with initial posttransfusion hemoglobin of 8.7. Hemoglobin of 8.1 this morning noted. No additional bowel movements/melena noted. Gastroenterology consultation completed yesterday with recommendations for possible repeat esophagogastroduodenoscopy to be completed if additional evidence of melena noted. Dr. Vinson currently out of town. Forwarded from admission H&P: 59-year-old male with a of coronary artery disease, hypertension, chronic kidney disease, COPD presents for chest pain. He reports he has been feeling generally weak and bad over the last few days. He started having chest pain and shortness of breath yesterday. This morning when he woke up he was not feeling well. He was in the shower and apparently passed out. His significant other heard a crash and came into the bathroom and found him. Family thinks that he passed out because he has not been eating or drinking much. He has had weight loss. He admits depression related to these unresolved issues. He has been having issues for months, has seen a GI doctor, has had endoscopy by Dr. Vinson, has seen a vascular surgeon, Dr. Cid, but they have never been able to follow-up with a satisfactory explanation for his symptoms. He has had recent past cardiology evaluations. Including a heart cath 08/12/23. He has even been screened for AlphaGal. Recently has gone off of some medications. Taking 1/2 dose of Irbesartan 150mg and 1/2 of Clopidogrel 75mg. Recent RX pramipexole. Per H&P This is a 59-year-old male who saw Dr. Vinson in May for EGD with concerns for nausea, retrosternal chest pressure, dysphagia/difficulty swallowing and globus sensation. He has lost weight. Patient has already seen GI in [place] and had a panendoscopy. No significant findings on EGD but for blanching of the gastric mucosa that was concerning for gastric or mesenteric angina. The patient followed back up with Dr. Douglas again after discussion with Dr. Vinson who still felt that there was no evidence of arterial abnormalities. The patient is status postacute [place] in May 2023. He has been on Plavix. He has seen Dr. Khoury previously for chronic anemia felt likely to be related to chronic renal dysfunction. Patient's hemoglobin normally runs between 10 and 12. He did have a syncopal episode at home and was found to be acutely dehydrated upon arrival to the ER with very low sodium and magnesium levels. He was treated with 2 L normal saline in the ER and placed on 100 mL/h afterwards. His hemoglobin was 12.2 initially. He was seen by cardiology and underwent heart cath yesterday about 1:00. He did have single stent placed. Was treated with heparin and then daily Lovenox. Patient had a drop in hemoglobin down to 7.0 and then 7.5, normocytic and normochromic. He reports a single episode of melena in stool this morning. He has not had any further bleeding or melena. We are awaiting Hemoccult testing if he has another bowel movement. BUN elevated at 62. He is currently receiving 2 units packed red cells. No hypotension. He is mildly tachycardic intermittently. Patient reports he feels terrible . He is able to answer questions appropriately [facility] Disclaimer: The information contained in this section may have been updated after the patient was seen, as this information can be updated by other users. Medical History (Updated 11/07/24 @ 12:51 by Surinder Valderrama MD) Hyponatremia Depression HTN (hypertension) Renal artery stenosis Chronic renal insufficiency, stage II (mild) Metatarsal fracture Fatigue SMOOTH (obstructive sleep apnea) COPD (chronic obstructive pulmonary disease) Pectus excavatum Right atrial enlargement Tobacco user HLD (hyperlipidemia) CAD (coronary artery disease) Surgical History History of neck surgery History of coronary artery stent placement H/O shoulder surgery Hx of knee surgery Family History Father Family history of myocardial infarction Social History (Updated 11/05/24 @ 09:21 by Polina Cobian RN) Smoking Status: Current every day smoker tobacco type: cigarettes packs per day: 1 second hand exposure: Yes alcohol intake: never substance use type: denies use current occupational status: employed Travel in the last 8 weeks?: None household members: significant other housing: house current occupation: [employer] current occupational exposures/hazards: No caffeine: Yes Have you lived/traveled outside [place] in past 30 days?: No Contact w/someone who lives/traveled outside US past 30 days?: No Exposure to someone with infectious disease in past 14 days?: No Do you have a fever (greater than 100.4 F or 38 C)?: No Have you tested positive for COVID-19?: No Exposed to someone with COVID-19 in past 14 days?: No Do you have a sore throat?: No Do you have a cough?: No Do you have any weakness?: No Do you have any diarrhea?: No Are you experiencing any unusual bleeding?: No Do you have any muscle aches/pain?: No Do you have any abdominal pain?: No Are you experiencing loss of taste or smell?: No Review of Systems *Cardiovascular Cardiovascular: Reports syncope *Neurologic Neurologic: Reports as per HPI, Denies convulsions and Reports syncope Meds Home Medications and Allergies Home Medications ?Medication ?Instructions ?Recorded ?Confirmed ?Type nitroglycerin 0.4 mg sublingual 0.4 mg sublingual Q5MI [employer] PRN Chest 08/13/24 11/05/24 History tablet Pain azelastine 137 mcg-fluticasone 50 1 spray intranasal B ID 11/05/24 11/05/24 History mcg/spray nasal spray clopidogrel 75 mg tablet 37.5 mg PO DAILY 11/05/24 History irbesartan 150 mg tablet 75 mg PO DAILY 11/05/2410/15 History ondansetron 8 mg disintegrating 8 mg PO Q12HP PRN naus ea and 11/05/24 11/05/24 History tablet vomiting pramipexole 0.125 mg tablet 0.125 mg PO DAILY 11/05/24 11/05/24 History New Prescriptions to Start Prescriptions: Allergies Allergy/AdvReac Type Severity Reaction Status Date / Time No Known Allergies Allergy Verified 11/02/24 10:44 Exam (Inpt) Vital signs and Labs for Last 24 Hours: Temp Pulse Resp BP Pulse Ox O2 Del Method 98.6 F 70 14 128/64 100 Room Air 11/07/24 08:00 11/07/24 12:00 11/07/24 12:00 11/07/24 12:00 11/07/24 12:00 11/07/24 12:00 Laboratory Results - last 24 hr 11/06/24 07:09: Blood Type O Positive, Antibody Screen Negative, Crossmatch (AHG) See Detail 11/06/24 07:30: Cortisol 14.2 11/06/24 17:02: POC Glucose 91 11/06/24 17:30: Hgb 8.7 L D, Hct 25.1 L 11/06/24 21:06: Hgb 8.7 L, Hct 25.7 L 11/07/24 04:13: WBC 8.7 D, RBC 2.75 L, Hgb 8.1 L, Hct 23.5 L, MCV 85.5, MCH 29.5, MCHC 34.5, RDW 13.9, Plt Count 268 D, MPV 9.5, Neut % (Auto) 72.0, Lymph % (Auto) 14.8, [place] % (Auto) 9.2, Eos % (Auto) 2.6, Baso % (Auto) 0.8, Neut # (Auto) 6.3, Lymph # (Auto) 1.3, [place] # (Auto) 0.8, Eos # (Auto) 0.2, Baso # (Auto) 0.1, Sodium 131 L, Potassium 3.9, Chloride 105, Carbon Dioxide 22, Anion Gap 7.9, BUN 42 H D, Creatinine 1.30 H, Estimated Creat Clear 52, Estimated GFR 56 L, Est GFR ( Amer) 68, Glucose 94, Calcium 8.2 L I & O for Labs for Last 24 Hours: Intake & Output 11/05/24 11/06/24 11/07/24 11/08/24 11:59 11:59 11:59 11:59 Intake Total 2020 2563.11 / 2563.11 Output Total 200 / 550 1670 / 1670 2099 Balance -200 / -550 351 / 351 463.11 / 463.11 Weight 131 lb 14.441 oz 134 lb 3.2 oz 136 lb 11.2 oz Constitutional: no acute distress Respiratory: Absent respiratory distress Cardiac: Absent Tachycardia Results Labs 11/07/24 04:13 11/07/24 04:13 Labs: Laboratory Results - last 24 hr 11/06/24 07:09: Blood Type O Positive, Antibody Screen Negative, Crossmatch (AHG) See Detail 11/06/24 07:30: Cortisol 14.2 11/06/24 17:02: POC Glucose 91 11/06/24 17:30: Hgb 8.7 L D, Hct 25.1 L 11/06/24 21:06: Hgb 8.7 L, Hct 25.7 L 11/07/24 04:13: WBC 8.7 D, RBC 2.75 L, Hgb 8.1 L, Hct 23.5 L, MCV 85.5, MCH 29.5, MCHC 34.5, RDW 13.9, Plt Count 268 D, MPV 9.5, Neut % (Auto) 72.0, Lymph % (Auto) 14.8, [place] % (Auto) 9.2, Eos % (Auto) 2.6, Baso % (Auto) 0.8, Neut # (Auto) 6.3, Lymph # (Auto) 1.3, [place] # (Auto) 0.8, Eos # (Auto) 0.2, Baso # (Auto) 0.1, Sodium 131 L, Potassium 3.9, Chloride 105, Carbon Dioxide 22, Anion Gap 7.9, BUN 42 H D, Creatinine 1.30 H, Estimated Creat Clear 52, Estimated GFR 56 L, Est GFR ( Amer) 68, Glucose 94, Calcium 8.2 L Assessment and Plan *Assessment and plan (1) Complaint of melena: Status: Acute Category: Medical Code(s): K92.1 - Melena (2) Anemia: Status: Acute Qualifiers: Anemia type: unspecified type Qualified Code(s): D64.9 - Anemia, unspecified Category: Medical Code(s): D64.9 - Anemia, unspecified Plan Possible repeat esophagogastroduodenoscopy pending results of repeat hemoglobin/hematocrit in a.m. and pending any recurrence of symptomatology (melena, etc.).
--- NOTE | 2024-11-07 13:43 | PC.NURSE ---
Report given to FROYLAN Berg on Medical Surgical. Patient transferred by agency appointments supervisor Evelina, to Room 219.
--- NOTE | 2024-11-07 17:05 | PC.NURSE ---
recieved pt from step-down unit around 1345. pt has been A&Ox4. Vital signs stable tolerating room air. right groin cath site c/d/i. Protonix gtt infusing at 10mL/hr at this time per JUL. Full liquid diet. NPO at midnight for possible scope. Monitoring Hgb. Pt up stand-by. Pt resting comfortably with no further needs voiced at this time. Call light within reach.
[2024-11-07] MEDS: ATORVASTATIN 40MG TABLET 40 MG PO (20:33)
[2024-11-08] VITALS (36 sets, daily range): BP systolic 120–186; BP diastolic 56–85; PULSE 60–77; RESP 15–19; TEMP 36.3–37.1; O2SAT 95–100; BMI 19.9
--- NOTE | 2024-11-08 01:57 | ECG_ITS ---
APPROVED REPORT Exam: Resting ECG HR:70 bpm ECG Measurements Heart Rate 70 AXES [place] 157 P 73 QRSd 93 QRS 34 QT 381 T 51 QTc 401 Conclusion SINUS RHYTHM NORMAL ECG UNCONFIRMED REPORT Electronically signed by : Afshin Ann MD 11/08/2024 08:32:59
--- NOTE | 2024-11-08 02:14 | PC.NURSE ---
At 01:39, a 31-beat run of V-TACH was captured on cardiac telemetry from the patient before returning to normal sinus rhythm. The patient was previously running normal sinus rhythm as well. At 01:57, an EKG was obtained by Zac CEDEÑO and Blanca CEDEÑO; the unofficial EKG report was reviewed by ER provider, Elodia Solis MD. Normal sinus rhythm was exhibited per MD-signed EKG report. Vital signs were stable (see vital sign assessment for 01:45). The patient did not endorse any chest pain, dizziness, or any other abnormal symptoms. Ekaterina Mcgee MD was paged from the almond blancher operator (on-call for Abdi COLUNGA); at 02:12, Arely COLUNGA was notified about the V-TACH run, vital signs, and patient status. He stated to continue to monitor the patient. No new orders or interventions were obtained. The patient is resting with eyes closed, respirations are even and unlabored, and he remains in no apparent distress at this time.
--- NOTE | 2024-11-08 03:17 | PC.NURSE ---
Changed out trashes and blue bags at this time [id number]
--- NOTE | 2024-11-08 04:37 | PC.NURSE ---
Blue bags and trashes were taken out at this time [id number]. Patient's call light is within reach and pt does not need anything
--- NOTE | 2024-11-08 05:00 | PC.NURSE ---
Patient is alert and oriented x4. He was observed to have eyes closed, respirations even and unlabored on room air, and no apparent distress throughout the majority of the night. Patient has not had any complaints of further dizziness, denies chest pain, has not reported any tarry stools this shift, or had any other abnormalities. Anxiety symptoms (-). Scheduled medications were administered as appropriately per MAR. Protonix drip continues to infuse at 10 mL/hr through peripheral IV site. Auscultation of heart, lungs, and bowels were within normal findings. Patient ambulates independently with supervision (precaution due to previous syncope episodes) in his room/to the bathroom. Patient was able to tolerate consuming vanilla ice cream for a bedtime snack; he has remained NPO since midnight pending repeat scope per Lavelle COLUNGA. Left subclavian central line (triple lumen) remains patent and intact; labs drawn. At this time, the patient is resting in bed without any further complaints. No further runs of V-TACH noted since 01:39 (see previous note) on cardiac telemetry. Vital signs table. No new needs thus far. Call light within reach.
[2024-11-08 05:08] LABS: Basophils # 0.1 K/mm3 (0-0.2); Basophils % 0.7 % (0.1-2.0); Eosinophils # 0.3 Kmm3 (0.0-0.4); Eosinophils % 3.7 % (0.1-12.0); Hematocrit 21.3 % (42.0-52.0); Hemoglobin 7.4 g/dL (14.1-18.0); Immature Granulocytes # 0.03 10^3uL; Immature Granulocytes % 0.3 %; Lymphocytes # 1.3 K/mm3 (0.7-4.5); Lymphocytes % 14.4 % (10-50); Mean Corpuscular HGB Conc 34.7 g/dL (31.8-35.4); Mean Corpuscular Hemoglobin 29.7 pg (27.0-31.2); Mean Corpuscular Volume 85.5 fl (80-94); Mean Platelet Volume 9.3 fl (7.4-10.4); Monocytes # 0.7 K/mm3 (0.1-1.0); Monocytes % 8.4 % (1.7-9.3); Neutrophils # 6.3 K/mm3 (1.8-7.8); Neutrophils % 72.5 % (37.0-80.0); Nucleated Red Blood Cells # 0 10^3/uL; Nucleated Red Blood Cells % 0 %; Platelet Count 238 K/mm3 (142-424); Red Blood Count 2.49 M/mm3 (4.60-6.20); Red Cell Distribution Width 13.3 % (11.5-17.5); Red Cell Distribution Width-SD 41.5 fL; White Blood Count 8.7 K/mm3 (4.8-10.8)
--- NOTE | 2024-11-08 06:33 | P.PN_ITS ---
Subjective Patient reports: no new complaints Narrative: No additional bowel movements; therefore, no additional reports of melena Exam Data for Last 24 hours Vital signs and Labs for Last 24 Hours: Temp Pulse Resp BP Pulse Ox O2 Del Method 98.2 F 60 15 120/65 99 Room Air 11/08/24 01:45 11/08/24 04:00 11/08/24 03:15 11/08/24 03:15 11/08/24 03:15 11/08/24 03:15 Laboratory Results - last 24 hr 11/06/24 07:30: Cortisol 14.2 11/08/24 05:00: WBC 8.7, RBC 2.49 L, Hgb 7.4 L, Hct 21.3 L, MCV 85.5, MCH 29.7, MCHC 34.7, RDW 13.3, Plt Count 238, MPV 9.3, Neut % (Auto) 72.5, Lymph % (Auto) 14.4, [place] % (Auto) 8.4, Eos % (Auto) 3.7, Baso % (Auto) 0.7, Neut # (Auto) 6.3, Lymph # (Auto) 1.3, [place] # (Auto) 0.7, Eos # (Auto) 0.3, Baso # (Auto) 0.1 I & O for Last 24 hours: Intake & Output 11/05/24 11/06/24 11/07/24 11/08/24 11:59 11:59 11:59 11:59 Intake Total 2020 / 2020 2563.11 / 2563.11 941 / 941 Output Total 200 / 550 1670 / 1670 2099 / 2100 300 / 300 Balance -200 / -550 351 / 351 463.11 / 463.11 641 / 641 Weight 131 lb 14.441 oz 134 lb 3.2 oz 136 lb 11.2 oz 131 lb 8 oz Constitutional Constitutional: no acute distress *Routine Respiratory Exam Respiratory: Absent respiratory distress *Routine Cardiovascular Exam Cardiovascular: Absent tachycardia Progress Note: A&P Assessment and plan (1) Anemia: Status: Acute Assessment and plan: Hemoglobin 7.4 this a.m. Initially proceed with esophagogastroduodenoscopy this morning I have discussed the risks and benefits including, but not limited to: Bleeding Infection Damage to surrounding tissue Inherent risks of sedation The patient agrees to proceed. (2) Complaint of melena: Status: Acute
--- NOTE | 2024-11-08 06:34 | PC.NURSE ---
Ice filled and table is wiped. call light within reach, patient does not need anything at this time. [id number]
--- NOTE | 2024-11-08 06:38 | PC.NURSE ---
Patient left floor with staff for Pre-Op at 06:37.
[2024-11-08] MEDS: EPINEPHrine 0.1 MG/ML 10ML SYRINGE (CRASH CART) 1 MG (07:23)
--- NOTE | 2024-11-08 07:26 | [facility].SCOPE ---
Procedure: Date: 11/08/24 Patient Date of :: 1965 Procedure Performed:: Esophagogastroduodenoscopy with epinephrine injection and biopsy Indications:: Melena Performing Provider:: Surinder Valderrama MD Referring Provider:: Dr. Patton Sedation:: Monitored anesthesia care Procedure:: After informed consent was obtained the patient was taken to the endoscopy suite. Sedation ensued after the patient was transferred to the left lateral decubitus position. Pulse, blood pressure, and oxygen saturation were monitored throughout the procedure. The endoscope was advanced beyond the duodenal bulb. Retroflexion within the gastric lumen was accomplished. The gastroscope was carefully removed and the patient was transferred to recovery in stable condition. Please see findings and specimens below for detail. Findings:: Prepyloric/pyloric channel ulcerations (adjacent ulcerations) No active bleeding No clot at base 10 mL of epinephrine injected circumferentially around ulcers Antral biopsy obtained Specimens:: Antral biopsy Recommendations:: Continue medical therapy for peptic ulcer disease Continue to follow serial hemoglobin/hematocrit Repeat esophagogastroduodenoscopy in 6-8 weeks Follow-up pathology Complications:: No immediate Estimated blood obtained (mL): 1 Colonoscopy Component Colonoscopy Component Was a colonoscopy performed during today's procedure?: No
[2024-11-08] MEDS: ONDANSETRON 4MG/2ML VIAL 4 MG IV (07:56)
--- NOTE | 2024-11-08 08:02 | PC.NURSE ---
Pt arrived to med/surg floor via bed @[id number]
--- NOTE | 2024-11-08 08:23 | XR_ITS ---
FINAL REPORT CLINICAL HISTORY: epigastric pain COMPARISON: 11/06/2024 FINDINGS: No acute pulmonary opacity is present. There is no evidence of effusion or pneumothorax. Mediastinum is unremarkable. Heart size is normal. IMPRESSION: No acute abnormality. Reviewed, Interpreted and Dictated by Dorota Ashley MD Transcribed by Mariaelena Gomez Authenticated and [facility]
--- NOTE | 2024-11-08 08:25 | EXP.ACUTE.PN ---
Subjective *Date: 11/08/24 *Time: 08:25 Interval history: Patient just returned from his EGD. He had prepyloric/pyloric ulcerations. Epi was injected around the ulcers. The patient is now having epigastric pain and nausea. Medical Exam Vital signs and Labs for Last 24 Hours: Vital Signs Temp Pulse Pulse Pulse Pulse Pulse Pulse 11/08/24 07:38 71 11/08/24 07:30 97.4 F L 72 11/08/24 05:00 11/08/24 04:00 60 11/08/24 03:15 70 11/08/24 03:00 11/08/24 01:45 98.2 F 75 11/08/24 01:00 11/08/24 00:00 70 11/08/24 00:00 98.4 F 77 11/07/24 23:00 11/07/24 21:00 11/07/24 20:00 11/07/24 20:00 70 11/07/24 20:00 98.2 F 74 11/07/24 18:44 11/07/24 17:00 11/07/24 16:00 70 11/07/24 16:00 98.1 F 75 11/07/24 15:00 11/07/24 13:00 11/07/24 12:00 70 11/07/24 12:00 70 11/07/24 11:00 11/07/24 10:46 73 76 86 11/07/24 10:00 79 11/07/24 08:46 Resp BP BP BP BP BP Pulse Ox 11/08/24 07:38 16 126/74 96 11/08/24 07:30 16 130/79 96 11/08/24 05:00 11/08/24 04:00 11/08/24 03:15 15 120/65 99 11/08/24 03:00 11/08/24 01:45 16 128/69 98 11/08/24 01:00 11/08/24 00:00 11/08/24 00:00 17 120/60 99 11/07/24 23:00 11/07/24 21:00 11/07/24 20:00 11/07/24 20:00 11/07/24 20:00 19 131/67 97 11/07/24 18:44 11/07/24 17:00 11/07/24 16:00 11/07/24 16:00 16 153/70 H 99 11/07/24 15:00 11/07/24 13:00 11/07/24 12:00 11/07/24 12:00 14 128/64 100 11/07/24 11:00 11/07/24 10:46 129/65 117/63 115/67 11/07/24 10:00 14 128/68 100 11/07/24 08:46 O2 Del Method 11/08/24 07:38 Room Air 11/08/24 07:30 Room Air 11/08/24 05:00 Room Air 11/08/24 04:00 11/08/24 03:15 Room Air 11/08/24 03:00 Room Air 11/08/24 01:45 Room Air 11/08/24 01:00 Room Air 11/08/24 00:00 11/08/24 00:00 Room Air 11/07/24 23:00 Room Air 11/07/24 21:00 Room Air 11/07/24 20:00 Room Air 11/07/24 20:00 11/07/24 20:00 Room Air 11/07/24 18:44 Room Air 11/07/24 17:00 Room Air 11/07/24 16:00 11/07/24 16:00 11/07/24 15:00 Room Air 11/07/24 13:00 Room Air 11/07/24 12:00 11/07/24 12:00 Room Air 11/07/24 11:00 Room Air 11/07/24 10:46 11/07/24 10:00 Room Air 11/07/24 08:46 Room Air Intake and Output 11/07/24 11/08/24 11/08/24 19:59 03:59 11:59 Intake Total 600 / 941 341 / 941 Output Total 300 / 300 0 / 300 0 / 300 Balance 300 / 641 341 / 641 0 / 641 Intake: Intake, Oral Amount 600 / 838 238 / 838 Infusion Intake 103 / 103 Pantoprazole Sodium 80 mg In 0. 103 / 103 9 % Sodium Chloride 100 ml @ 10 mls/hr IV .Q10H [facility] Rx#: [id number] Output: Output, Urine Amount 300 / 300 0 / 300 0 / 300 Other: Number of Unmeasured Voids 1 2 Weight 131 lb 8 oz Patient Weight 11/08/24 11:59 Weight 131 lb 8 oz Laboratory Results - last 24 hr 11/06/24 07:30: Cortisol 14.2 11/08/24 05:00: WBC 8.7, RBC 2.49 L, Hgb 7.4 L, Hct 21.3 L, MCV 85.5, MCH 29.7, MCHC 34.7, RDW 13.3, Plt Count 238, MPV 9.3, Neut % (Auto) 72.5, Lymph % (Auto) 14.4, [place] % (Auto) 8.4, Eos % (Auto) 3.7, Baso % (Auto) 0.7, Neut # (Auto) 6.3, Lymph # (Auto) 1.3, [place] # (Auto) 0.7, Eos # (Auto) 0.3, Baso # (Auto) 0.1 I & O for Labs for Last 24 Hours: Intake & Output 11/05/24 11/06/24 11/07/24 11/08/24 11:59 11:59 11:59 11:59 Intake Total 2020 / 2020 2563.11 / 2563.11 941 / 941 Output Total 200 / 550 1670 / 1670 2100 / 2100 300 / 300 Balance -200 / -550 351 / 351 463.11 / 463.11 641 / 641 Weight 131 lb 14.441 oz 134 lb 3.2 oz 136 lb 11.2 oz 131 lb 8 oz Constitutional: Present no acute distress Respiratory: Present normal respiratory effort Cardiac: Present Reg Rate and Rhythm GI: Present tenderness (epigastric) and normal bowel sounds Extremities: Present normal inspection and full ROM Skin: Present intact; Absent erythema Neuro: Present Grossly Intact and moves all extremities Assessment and Plan *Assessment and plan (1) Syncope: Status: Acute Qualifiers: Syncope type: unspecified Qualified Code(s): R55 - Syncope and collapse Category: Medical Code(s): R55 - Syncope and collapse (2) Chest pain: Status: Acute Qualifiers: Chest pain type: other chest pain Qualified Code(s): R07.89 - Other chest pain Category: Medical Code(s): R07.9 - Chest pain, unspecified (3) CAD (coronary artery disease): Status: Chronic Qualifiers: Coronary Disease-Associated Artery/Lesion type: [place] artery [place] vs. transplanted heart: [place] heart Associated angina: with other forms of angina Qualified Code(s): I25.118 - Atherosclerotic heart disease of [place] coronary artery with other forms of angina pectoris Category: Medical Code(s): I25.10 - Atherosclerotic heart disease of [place] coronary artery without angina pectoris (4) History of coronary artery stent placement: Status: Acute Category: Surgical Code(s): Z95.5 - Presence of coronary angioplasty implant and graft (5) Fatigue: Status: Chronic Qualifiers: Fatigue type: chronic, unspecified Qualified Code(s): R53.82 - Chronic fatigue, unspecified Category: Medical Code(s): R53.83 - Other fatigue (6) HTN (hypertension): Status: Acute Qualifiers: Hypertension type: unspecified Qualified Code(s): I10 - Essential (primary) hypertension Category: Medical Code(s): I10 - Essential (primary) hypertension (7) Abnormal weight loss: Status: Acute Category: Medical Code(s): R63.4 - Abnormal weight loss (8) Hyponatremia: Status: Acute Category: Medical Code(s): E87.1 - Hypo-osmolality and hyponatremia (9) Hypomagnesemia: Status: Acute Category: Medical Code(s): E83.42 - Hypomagnesemia (10) Anemia: Status: Acute Qualifiers: Anemia type: unspecified type Qualified Code(s): D64.9 - Anemia, unspecified Category: Medical Code(s): D64.9 - Anemia, unspecified (11) Complaint of melena: Status: Acute Category: Medical Code(s): K92.1 - Melena (12) Pyloric ulcer: Status: Acute Category: Medical Code(s): K25.9 - Gastric ulcer, unspecified as acute or chronic, without hemorrhage or perforation Plan Will order morphine for pain this am. He has had antiemetics. Will also get an EKG. H&H has decreased. Will transfuse with 2 more units of PRBC's.
[2024-11-08] MEDS: MORPHINE 2MG/ML SYRINGE 2 MG IV (09:01)
[2024-11-08] MEDS: CLOPIDOGREL 75MG TAB 75 MG PO (09:17)
[2024-11-08] MEDS: IRBESARTAN 75MG TABLET 75 MG PO (09:17)
--- NOTE | 2024-11-08 10:25 | EXP.CARD.PN ---
Subjective Subjective Date: 11/08/24 Time: 10:26 Principal diagnosis: Angina, GI bleed Interval history: 59-year-old white male in bed sleeping after EGD this a.m. EGD results showed prepyloric/pyloric channel ulcers with no active bleeding or clot. Biopsy was taken. Exam Data for Last 24 hours Vital signs and Labs for Last 24 Hours: Temp Pulse Resp BP Pulse Ox O2 Del Method 97.4 F L 71 16 126/74 96 Room Air 11/08/24 07:30 11/08/24 07:38 11/08/24 07:38 11/08/24 07:38 11/08/24 07:38 11/08/24 07:38 Laboratory Results - last 24 hr 11/08/24 05:00: WBC 8.7, RBC 2.49 L, Hgb 7.4 L, Hct 21.3 L, MCV 85.5, MCH 29.7, MCHC 34.7, RDW 13.3, Plt Count 238, MPV 9.3, Neut % (Auto) 72.5, Lymph % (Auto) 14.4, [place] % (Auto) 8.4, Eos % (Auto) 3.7, Baso % (Auto) 0.7, Neut # (Auto) 6.3, Lymph # (Auto) 1.3, [place] # (Auto) 0.7, Eos # (Auto) 0.3, Baso # (Auto) 0.1 I & O for Last 24 hours: Intake & Output 11/05/24 11/06/24 11/07/24 11/08/24 11:59 11:59 11:59 11:59 Intake Total 2020 2563.11 / 2563.11 941 / 941 Output Total 200 / 550 1670 / 1670 2100 / 2100 300 / 300 Balance -200 / -550 351 / 351 463.11 / 463.11 641 / 641 Weight 131 lb 14.441 oz 134 lb 3.2 oz 136 lb 11.2 oz 131 lb 8 oz Progress Note: A&P Assessment and plan (1) Syncope: Status: Acute (2) Chest pain: Status: Acute (3) CAD (coronary artery disease): Status: Chronic (4) History of coronary artery stent placement: Status: Acute (5) Fatigue: Status: Chronic (6) HTN (hypertension): Status: Acute (7) Abnormal weight loss: Status: Acute (8) Hyponatremia: Status: Acute (9) Hypomagnesemia: Status: Acute (10) Anemia: Status: Acute (11) Complaint of melena: Status: Acute (12) Pyloric ulcer: Status: Acute Assessment and Plan Assessment and Plan for All Diagnoses:: 1. CAD with with syncope -Troponins normal -EKG with poor R wave progression anteriorly, chronic with no acute changes this admission -MART to prox RCA on 11/05/2024 -DAPT on hold, Plavix only due to GI bleed. Discussed risk/benefits with pt/family and possibility of stent thrombosis. Advised immediate medical care if CP. 2. Dysphagia with weight loss of greater than 30 pounds over the last 6 months -Recent GI evaluation without etiology over the last 10 months -LFTs and lipase normal -melena here x1 with hgb drop from 12 to 7. GI following. -neg for mesentric ischemia per recent vascular surgery evaluation, Dr. Pennington. -EGD this admit shows prepyloric/pyloric channel ulcerations without active bleeding or clot 3. History of hypertension -Home medications have been decreased per patient due to weight loss and decreased PO intake (no metoprolol in a month, half dose of irbesartan) 4. Hyperlipidemia -LDL 104, 07/2024 off statin -resumed statin 11/06/2024 5. Electrolyte disorders (hyponatremia and hypomagnesemia) -Replacements ordered -Sodium 128 up to 131 and magnesium 1.4 up to 2.0 6. Chronic kidney disease, stage III -Creatinine 1.2 with GFR 62 this admission 7. Hypercalcemia at 11.8 -now down to 8.2 8. Anemia with dark black stool after coronary stenting with no evidence of retroperitoneal bleed on abdominal/pelvis CT -Hgb down to 7.0-7.5 -transfusing 2 units PRBC's -IV protonix -GI evaluation - had normal pandendoscopy in May. -EGD this admit shows prepyloric/pyloric channel ulcerations without active bleeding. CV stable, no changes today.
[2024-11-08 10:29] LABS: Albumin Level 2.7 g/dl (3.5-5.0); Chloride 101 mmol/L (98-107); Potassium 3.7 mmoL/L (3.5-5.1); Sodium 132 mmol/L (136-145)
[2024-11-08 10:32] LABS: Alanine Aminotransferase 11 U/L (12-78); Albumin/Globulin Ratio 1.4 (1.1-1.8); Alkaline Phosphatase 43 U/L (38-126); Anion Gap 9.7 mEq/L (5-15); Aspartate Amino Transferase 17 U/L (17-59); Bilirubin,Total 0.3 mg/dl (0.2-1.3); Blood Urea Nitrogen 20 mg/dl (9-20); Carbon Dioxide 25 mmol/L (22.0-30.0); Creatinine Clearance Estimated 65 mL/min (50-200); Estimated Glomerular Filt Rate 76 ml/min (>60); GFR (African American) 92 ML/MIN (>60); Globulin 1.9 g/dL (1.3-3.2); Glucose 88 mg/dl (74-100); Total Protein,Serum 4.6 g/dl (6.3-8.2)
[2024-11-08] MEDS: METOCLOPRAMIDE 5MG TABLET 5 MG PO ×2 (12:19→16:53)
[2024-11-08] MEDS: SUCRALFATE 1GM/10ML SUSP UDC 1 GM PO ×3 (12:19→21:20)
[2024-11-08] MEDS: FERROUS SULFATE 325MG TABLET 325 MG PO ×2 (12:20→21:20)
[2024-11-08] MEDS: PANTOPRAZOLE SODIUM 80 MG in 0.9 % SODIUM CHLORIDE 100 ML 10 MG IV ×2 (12:33→21:55)
[2024-11-08 18:04] LABS: Hematocrit 27.7 % (42.0-52.0)
[2024-11-08 18:15] LABS: Hemoglobin 9.6 g/dL (14.1-18.0)
--- NOTE | 2024-11-08 18:22 | PC.NURSE ---
pt is A&Ox4. Vital signs stable tolerating room air. Pt received two units of blood today per order. Pt tolerated well. Post H&H is 9.6. Pt had a EGD today. Diet advanced to regular per MD. Pt resting comfortably in bed with no further needs voiced at this time. Call light within reach.
[2024-11-08] MEDS: ATORVASTATIN 40MG TABLET 40 MG PO (21:20)
[2024-11-09] VITALS: BP 142/71; PULSE 68; PULSE 70; RESP 17; TEMP 36.7; O2SAT 96
[2024-11-09 04:00] VITALS: BP 140/66; PULSE 60; PULSE 68; RESP 16; TEMP 36.7; O2SAT 93
--- NOTE | 2024-11-09 04:05 | PC.NURSE ---
Addendum entered by Debbie Alston RN 11/09/24 05:00: Normal sinus rhythm on telemetry. Original Note: Patient is alert and oriented x4. He was observed to have eyes closed, respirations even and unlabored on room air, and no apparent distress throughout the majority of the night. Patient has not had any complaints of any pain or nausea during this shift. Scheduled medications administered as appropriately per JUL. Protonix drip continues to infuse at 10 mL/hr through peripheral IV site. Auscultation of heart, lungs, and bowels remain within normal findings. Patient continues to ambulate independently with supervision. He has been using a urinal at the bedside for voiding needs this shift; urine output measured and documented accordingly. No bowel movement this shift. Patient has tolerated a regular diet with soft foods given. At this time, the patient is resting in bed with no new needs voiced thus far. Labs to be drawn from left subclavian (triple lumen) central line this morning. Call light is within reach.
[2024-11-09] MEDS: METOCLOPRAMIDE 5MG TABLET 5 MG PO (06:10)
[2024-11-09] MEDS: SUCRALFATE 1GM/10ML SUSP UDC 1 GM PO (06:10)
[2024-11-09 06:45] LABS: Basophils % 0.5 % (0.1-2.0); Eosinophils # 0.3 Kmm3 (0.0-0.4); Hematocrit 27.6 % (42.0-52.0); Hemoglobin 9.5 g/dL (14.1-18.0); Immature Granulocytes # 0.03 10^3uL; Immature Granulocytes % 0.3 %; Lymphocytes # 1.3 K/mm3 (0.7-4.5); Lymphocytes % 15.2 % (10-50); Mean Corpuscular HGB Conc 34.4 g/dL (31.8-35.4); Mean Corpuscular Hemoglobin 29.1 pg (27.0-31.2); Mean Corpuscular Volume 84.4 fl (80-94); Mean Platelet Volume 9.7 fl (7.4-10.4); Monocytes # 0.6 K/mm3 (0.1-1.0); Monocytes % 7.1 % (1.7-9.3); Neutrophils # 6.4 K/mm3 (1.8-7.8); Neutrophils % 73.9 % (37.0-80.0); Nucleated Red Blood Cells # 0 10^3/uL; Nucleated Red Blood Cells % 0 %; Platelet Count 263 K/mm3 (142-424); Red Blood Count 3.27 M/mm3 (4.60-6.20); Red Cell Distribution Width 13.2 % (11.5-17.5); Red Cell Distribution Width-SD 40.1 fL; White Blood Count 8.6 K/mm3 (4.8-10.8)
[2024-11-09 08:00] VITALS: BP 154/72; PULSE 71; RESP 18; TEMP 37.1; O2SAT 97
--- NOTE | 2024-11-09 08:12 | EXP.SURG.PN ---
Subjective Patient reports: no new complaints Narrative: Spoke with patient via phone. He states that he is feeling fine and is hopeful that he will be discharged today. Exam Data for Last 24 hours Vital signs and Labs for Last 24 Hours: Temp Pulse Resp BP Pulse Ox O2 Del Method 98.0 F 68 16 140/66 93 L Room Air 11/09/24 04:00 11/09/24 04:00 11/09/24 04:00 11/09/24 04:00 11/09/24 04:00 11/09/24 06:50 Laboratory Results - last 24 hr 11/06/24 07:09: Blood Type O Positive, Antibody Screen Negative, Crossmatch (AHG) See Detail 11/08/24 04:55: Sodium 132 L, Potassium 3.7, Chloride 101, Carbon Dioxide 25, Anion Gap 9.7, BUN 20 D, Creatinine 1.00 D, Estimated Creat Clear 65, Estimated GFR 76, Est GFR ( Amer) 92 D, Glucose 88, Calcium 8.0 L, Total Bilirubin 0.3, AST 17, ALT 11 L, Alkaline Phosphatase 43, Total Protein 4.6 L, Albumin 2.7 L, Globulin 1.9, Albumin/Globulin Ratio 1.4 11/08/24 17:56: Hgb 9.6 L D, Hct 27.7 L 11/09/24 06:22: WBC 8.6, RBC 3.27 L D, Hgb 9.5 L, Hct 27.6 L, MCV 84.4, MCH 29.1, MCHC 34.4, RDW 13.2, Plt Count 263, MPV 9.7, Neut % (Auto) 73.9, Lymph % (Auto) 15.2, [place] % (Auto) 7.1, Eos % (Auto) 3.0, Baso % (Auto) 0.5, Neut # (Auto) 6.4, Lymph # (Auto) 1.3, [place] # (Auto) 0.6, Eos # (Auto) 0.3, Baso # (Auto) 0.0 I & O for Last 24 hours: Intake & Output 11/06/24 11/07/24 11/08/24 11/09/24 11:59 11:59 11:59 11:59 Intake Total 2020 2563.11 / 2563.11 941 / 941 1116.37 / 1116.37 Output Total 1670 / 1670 2100 / 2100 300 / 300 1725 / 1725 Balance 351 / 351 463.11 / 463.11 641 / 641 -608.63 / -608.63 Weight 134 lb 3.2 oz 136 lb 11.2 oz 131 lb 8 oz 132 lb 7 oz Constitutional Comments: deferred Progress Note: A&P Assessment and plan (1) Pyloric ulcer: Status: Acute Assessment and plan: No active bleeding noted per EGD yesterday. Continue medical management as per primary service F/U antral bx. (2) Anemia: Status: Acute Assessment and plan: HGB stable this AM Assessment and Plan Assessment and Plan for All Diagnoses:: outpatient follow-up to be scheduled at discharge
--- NOTE | 2024-11-09 08:24 | EXP.ACUTE.PN ---
Subjective *Date: 11/09/24 *Time: 08:24 Interval history: Patient is feeling better today. His pain has resolved. He was able to eat breakfast. He is anxious to go home. Medical Exam Vital signs and Labs for Last 24 Hours: Vital Signs Temp Pulse Pulse Resp BP BP Pulse Ox 11/09/24 06:50 11/09/24 05:00 11/09/24 04:00 60 11/09/24 04:00 98.0 F 68 16 140/66 93 L 11/09/24 03:00 11/09/24 01:00 11/09/24 00:00 70 11/09/24 00:00 98.0 F 68 17 142/71 H 96 11/08/24 23:00 11/08/24 21:00 11/08/24 20:00 11/08/24 20:00 70 11/08/24 20:00 98.3 F 64 19 126/56 L 96 11/08/24 18:47 11/08/24 17:45 98.8 F 72 18 156/68 H 100 11/08/24 17:00 11/08/24 16:45 98.6 F 70 16 172/85 H 100 11/08/24 16:00 60 11/08/24 16:00 98.5 F 65 16 161/71 H 100 11/08/24 16:00 98.5 F 65 16 161/71 H 100 11/08/24 15:45 67 18 143/66 H 100 11/08/24 15:45 67 18 143/66 H 100 11/08/24 15:15 65 16 161/71 H 100 11/08/24 15:00 98.8 F 69 16 136/73 100 11/08/24 15:00 11/08/24 14:55 98.8 F 68 18 151/70 H 100 11/08/24 14:50 98.7 F 69 18 149/65 H 100 11/08/24 14:45 98.7 F 71 16 145/72 H 100 11/08/24 14:44 98.5 F 68 16 148/67 H 100 11/08/24 14:00 98.5 F 70 18 154/77 H 100 11/08/24 13:50 98.6 F 69 16 138/68 98 11/08/24 13:00 11/08/24 12:50 98.6 F 69 16 138/68 98 11/08/24 12:35 67 16 143/66 H 100 11/08/24 12:20 98.3 F 74 18 145/72 H 95 11/08/24 12:05 74 18 145/66 H 95 11/08/24 12:00 70 11/08/24 12:00 69 18 143/66 H 100 11/08/24 11:55 98.2 F 67 18 138/65 100 11/08/24 11:50 98.1 F 66 16 127/66 99 11/08/24 11:43 97.9 F 67 18 144/65 H 100 11/08/24 11:00 11/08/24 10:40 98 F 70 16 155/71 H 100 11/08/24 10:10 66 18 175/78 H 100 11/08/24 09:40 75 16 172/76 H 100 11/08/24 09:10 67 18 173/76 H 100 11/08/24 09:00 11/08/24 08:40 98.1 F 68 18 159/64 H 99 11/08/24 08:25 97.9 F 75 18 186/77 H 100 O2 Del Method 11/09/24 06:50 Room Air 11/09/24 05:00 Room Air 11/09/24 04:00 11/09/24 04:00 11/09/24 03:00 Room Air 11/09/24 01:00 Room Air 11/09/24 00:00 11/09/24 00:00 Room Air 11/08/24 23:00 Room Air 11/08/24 21:00 Room Air 11/08/24 20:00 Room Air 11/08/24 20:00 11/08/24 20:00 11/08/24 18:47 Room Air 11/08/24 17:45 11/08/24 17:00 Room Air 11/08/24 16:45 11/08/24 16:00 11/08/24 16:00 11/08/24 16:00 11/08/24 15:45 11/08/24 15:45 11/08/24 15:15 11/08/24 15:00 11/08/24 15:00 Room Air 11/08/24 14:55 11/08/24 14:50 11/08/24 14:45 11/08/24 14:44 11/08/24 14:00 11/08/24 13:50 11/08/24 13:00 Room Air 11/08/24 12:50 11/08/24 12:35 11/08/24 12:20 11/08/24 12:05 11/08/24 12:00 11/08/24 12:00 11/08/24 11:55 11/08/24 11:50 11/08/24 11:43 11/08/24 11:00 Room Air 11/08/24 10:40 Room Air 11/08/24 10:10 Room Air 11/08/24 09:40 Room Air 11/08/24 09:10 Room Air 11/08/24 09:00 Room Air 11/08/24 08:40 Room Air 11/08/24 08:25 Room Air Intake and Output 11/08/24 11/09/24 11/09/24 19:59 03:59 11:59 Intake Total 756.37 / 1116.37 360 / 1116.37 Output Total 600 / 1725 225 / 1725 900 / 1725 Balance 156.37 / -608.63 135 / -608.63 -900 / -608.63 Intake: Intake, Oral Amount 480 / 630 150 / 630 Infusion Intake 210 / 210 Pantoprazole Sodium 80 mg In 0. 210 / 210 9 % Sodium Chloride 100 ml @ 10 mls/hr IV .Q10H [facility] Rx#: [id number] Intake (Blood Product) Amt 276.37 / 276.37 Red Blood Cells Unit 0.37 / 0.37 [id number] Red Blood Cells Unit 276 / 276 [id number] Output: Output, Urine Amount 600 / 1725 225 / 1725 900 / 1725 Other: Number of Unmeasured Voids 0 Weight 132 lb 7 oz Patient Weight 11/09/24 11:59 Weight 132 lb 7 oz Laboratory Results - last 24 hr 11/06/24 07:09: Blood Type O Positive, Antibody Screen Negative, Crossmatch (AHG) See Detail 11/08/24 04:55: Sodium 132 L, Potassium 3.7, Chloride 101, Carbon Dioxide 25, Anion Gap 9.7, BUN 20 D, Creatinine 1.00 D, Estimated Creat Clear 65, Estimated GFR 76, Est GFR ( Amer) 92 D, Glucose 88, Calcium 8.0 L, Total Bilirubin 0.3, AST 17, ALT 11 L, Alkaline Phosphatase 43, Total Protein 4.6 L, Albumin 2.7 L, Globulin 1.9, Albumin/Globulin Ratio 1.4 11/08/24 17:56: Hgb 9.6 L D, Hct 27.7 L 11/09/24 06:22: WBC 8.6, RBC 3.27 L D, Hgb 9.5 L, Hct 27.6 L, MCV 84.4, MCH 29.1, MCHC 34.4, RDW 13.2, Plt Count 263, MPV 9.7, Neut % (Auto) 73.9, Lymph % (Auto) 15.2, [place] % (Auto) 7.1, Eos % (Auto) 3.0, Baso % (Auto) 0.5, Neut # (Auto) 6.4, Lymph # (Auto) 1.3, [place] # (Auto) 0.6, Eos # (Auto) 0.3, Baso # (Auto) 0.0 I & O for Labs for Last 24 Hours: Intake & Output 11/06/24 11/07/24 11/08/24 11/09/24 11:59 11:59 11:59 11:59 Intake Total 2020 2563.11 / 2563.11 941 / 941 1116.37 / 1116.37 Output Total 1670 / 1670 2100 / 2100 300 / 300 1725 / 1725 Balance 351 / 351 463.11 / 463.11 641 / 641 -608.63 / -608.63 Weight 134 lb 3.2 oz 136 lb 11.2 oz 131 lb 8 oz 132 lb 7 oz Constitutional: Present no acute distress Respiratory: Present normal respiratory effort Cardiac: Present Reg Rate and Rhythm GI: Present soft and normal bowel sounds; Absent tenderness, guarding or rebound Extremities: Present normal inspection and full ROM Skin: Present intact; Absent erythema Neuro: Present Grossly Intact and moves all extremities Assessment and Plan *Assessment and plan (1) Syncope: Status: Acute Qualifiers: Syncope type: unspecified Qualified Code(s): R55 - Syncope and collapse Category: Medical Code(s): R55 - Syncope and collapse (2) Chest pain: Status: Acute Qualifiers: Chest pain type: other chest pain Qualified Code(s): R07.89 - Other chest pain Category: Medical Code(s): R07.9 - Chest pain, unspecified (3) Pyloric ulcer: Status: Acute Category: Medical Code(s): K25.9 - Gastric ulcer, unspecified as acute or chronic, without hemorrhage or perforation (4) CAD (coronary artery disease): Status: Chronic Qualifiers: Coronary Disease-Associated Artery/Lesion type: [place] artery [place] vs. transplanted heart: [place] heart Associated angina: with other forms of angina Qualified Code(s): I25.118 - Atherosclerotic heart disease of [place] coronary artery with other forms of angina pectoris Category: Medical Code(s): I25.10 - Atherosclerotic heart disease of [place] coronary artery without angina pectoris (5) History of coronary artery stent placement: Status: Acute Category: Surgical Code(s): Z95.5 - Presence of coronary angioplasty implant and graft (6) Fatigue: Status: Chronic Qualifiers: Fatigue type: chronic, unspecified Qualified Code(s): R53.82 - Chronic fatigue, unspecified Category: Medical Code(s): R53.83 - Other fatigue (7) HTN (hypertension): Status: Acute Qualifiers: Hypertension type: unspecified Qualified Code(s): I10 - Essential (primary) hypertension Category: Medical Code(s): I10 - Essential (primary) hypertension (8) Abnormal weight loss: Status: Acute Category: Medical Code(s): R63.4 - Abnormal weight loss (9) Hyponatremia: Status: Acute Category: Medical Code(s): E87.1 - Hypo-osmolality and hyponatremia (10) Hypomagnesemia: Status: Acute Category: Medical Code(s): E83.42 - Hypomagnesemia (11) Anemia: Status: Acute Qualifiers: Anemia type: unspecified type Qualified Code(s): D64.9 - Anemia, unspecified Category: Medical Code(s): D64.9 - Anemia, unspecified (12) Complaint of melena: Status: Acute Category: Medical Code(s): K92.1 - Melena (13) Severe protein-calorie malnutrition: Status: Acute Category: Medical Code(s): E43 - Unspecified severe protein-calorie malnutrition Plan H&H has improved with transfusion and is stable this am. Renal function is normal. Patient can likely be discharged today and will need f/u with cardiology, Dr. Valderrama, and Dr. Vinson. He may need a PillCam outpatient as well. Will discuss further care with Dr. Patton.
--- NOTE | 2024-11-09 09:00 | EXP.CARD.PN ---
Subjective Subjective Date: 11/09/24 Time: 09:00 Principal diagnosis: Angina, GI bleed Interval history: 59-year-old white male in bed in no acute distress. Patient was able to eat breakfast today with no pain or discomfort. States he feels significantly better today. No further bloody bowel movements Exam Data for Last 24 hours Vital signs and Labs for Last 24 Hours: Temp Pulse Resp BP Pulse Ox O2 Del Method 98.0 F 68 16 140/66 93 L Room Air 11/09/24 04:00 11/09/24 04:00 11/09/24 04:00 11/09/24 04:00 11/09/24 04:00 11/09/24 06:50 Laboratory Results - last 24 hr 11/06/24 07:09: Blood Type O Positive, Antibody Screen Negative, Crossmatch (AHG) See Detail 11/08/24 04:55: Sodium 132 L, Potassium 3.7, Chloride 101, Carbon Dioxide 25, Anion Gap 9.7, BUN 20 D, Creatinine 1.00 D, Estimated Creat Clear 65, Estimated GFR 76, Est GFR ( Amer) 92 D, Glucose 88, Calcium 8.0 L, Total Bilirubin 0.3, AST 17, ALT 11 L, Alkaline Phosphatase 43, Total Protein 4.6 L, Albumin 2.7 L, Globulin 1.9, Albumin/Globulin Ratio 1.4 11/08/24 17:56: Hgb 9.6 L D, Hct 27.7 L 11/09/24 06:22: WBC 8.6, RBC 3.27 L D, Hgb 9.5 L, Hct 27.6 L, MCV 84.4, MCH 29.1, MCHC 34.4, RDW 13.2, Plt Count 263, MPV 9.7, Neut % (Auto) 73.9, Lymph % (Auto) 15.2, [place] % (Auto) 7.1, Eos % (Auto) 3.0, Baso % (Auto) 0.5, Neut # (Auto) 6.4, Lymph # (Auto) 1.3, [place] # (Auto) 0.6, Eos # (Auto) 0.3, Baso # (Auto) 0.0 I & O for Last 24 hours: Intake & Output 11/06/24 11/07/24 11/08/24 11/09/24 11:59 11:59 11:59 11:59 Intake Total 2020 2563.11 / 2563.11 941 / 941 1116.37 / 1116.37 Output Total 1670 / 1670 2099 / 2099 300 / 300 1725 / 1725 Balance 351 / 351 463.11 / 463.11 641 / 641 -608.63 / -608.63 Weight 134 lb 3.2 oz 136 lb 11.2 oz 131 lb 8 oz 132 lb 7 oz Constitutional Constitutional: no acute distress *Routine Respiratory Exam Respiratory: Present CTA bilaterally; Absent rhonchi or wheezes *Routine Cardiovascular Exam Cardiovascular: Present RRR; Absent murmur, gallop or rubs Progress Note: A&P Assessment and plan (1) Syncope: Status: Acute (2) Chest pain: Status: Acute (3) Pyloric ulcer: Status: Acute (4) CAD (coronary artery disease): Status: Chronic (5) History of coronary artery stent placement: Status: Acute (6) Fatigue: Status: Chronic (7) HTN (hypertension): Status: Acute (8) Abnormal weight loss: Status: Acute (9) Hyponatremia: Status: Acute (10) Hypomagnesemia: Status: Acute (11) Anemia: Status: Acute (12) Complaint of melena: Status: Acute (13) Severe protein-calorie malnutrition: Status: Acute Assessment and Plan Assessment and Plan for All Diagnoses:: 1. CAD with with syncope -Troponins normal -EKG with poor R wave progression anteriorly, chronic with no acute changes this admission -MART to prox RCA on 11/05/2024 -Plavix only due to GI bleed. Discussed risk/benefits with pt/family and possibility of stent thrombosis. Advised immediate medical care if CP. 2. Dysphagia with weight loss of greater than 30 pounds over the last 6 months -Recent GI evaluation without etiology over the last 10 months -LFTs and lipase normal -melena here x1 with hgb drop from 12 to 7. GI following. -neg for mesentric ischemia per recent vascular surgery evaluation, Dr. Pennington. -EGD this admit shows prepyloric/pyloric channel ulcerations without active bleeding or clot 3. History of hypertension -Home medications have been decreased per patient due to weight loss and decreased PO intake (no metoprolol in a month, half dose of irbesartan) -Stable on irbesartan only 4. Hyperlipidemia -LDL 104, 07/2024 off statin -resumed statin 11/06/2024 5. Electrolyte disorders (hyponatremia and hypomagnesemia) -Replacements ordered -Sodium 128 up to 131 and magnesium 1.4 up to 2.0 6. Chronic kidney disease, stage III -Creatinine 1.0 with GFR 76 at discharge 7. Hypercalcemia at 11.8 -now down to 8.0 at discharge 8. Anemia with dark black stool after coronary stenting with no evidence of retroperitoneal bleed on abdominal/pelvis CT -Hgb down to 7.0-7.5 -transfusing 2 units PRBC's with stable hemoglobin at 9.5 at time of discharge -IV protonix -GI evaluation - had normal pandendoscopy in May. -EGD this admit shows prepyloric/pyloric channel ulcerations without active bleeding. Clinically stable from a cardiac standpoint for discharge home. Home medication recommendations: Plavix 75 mg daily Irbesartan 75 mg daily Atorvastatin 40 mg daily Follow-up in office in 1 to 2 weeks
[2024-11-09] MEDS: CLOPIDOGREL 75MG TAB 75 MG PO (09:01)
[2024-11-09] MEDS: FERROUS SULFATE 325MG TABLET 325 MG PO (09:01)
[2024-11-09] MEDS: IRBESARTAN 75MG TABLET 75 MG PO (09:01)
--- NOTE | 2024-11-09 09:59 | PC.NURSE ---
Per Dr. Abdi almeida to remove left chest triple lumen line.
--- NOTE | 2024-11-09 10:02 | PC.NURSE ---
Left chest and two iv's removed.
--- NOTE | 2024-11-09 10:17 | PC.NURSE ---
Central Line removed. No signs or symptoms of infection. DSG placed.
--- NOTE | 2024-11-12 08:23 | P.DS_ITS ---
General Admission date:: 11/05/24 Discharge date: 11/09/24 HPI HPI HPI: This is a 59-year-old gentleman seen in consultation for possible esophagogastroduodenoscopy. He has a complex medical history and has undergone multiple interventions over the past few months including esophagogastroduodenoscopy in May of this year (Dr. Vinson). He underwent heart cath on November 05, 2024. A significant drop in hemoglobin noted status post heart cath. No obvious evidence of procedural hemorrhage. 1 reported episode of melena noted. He underwent transfusion of 2 units of packed red blood cells with initial posttransfusion hemoglobin of 8.7. Hemoglobin of 8.1 this morning noted. No additional bowel movements/melena noted. Gastroenterology consultation completed yesterday with recommendations for possible repeat esophagogastroduodenoscopy to be completed if additional evidence of melena noted. Dr. Vinson currently out of town. Forwarded from admission H&P: 59-year-old male with a of coronary artery disease, hypertension, chronic kidney disease, COPD presents for chest pain. He reports he has been feeling generally weak and bad over the last few days. He started having chest pain and shortness of breath yesterday. This morning when he woke up he was not feeling well. He was in the shower and apparently passed out. His significant other heard a crash and came into the bathroom and found him. Family thinks that he passed out because he has not been eating or drinking much. He has had weight loss. He admits depression related to these unresolved issues. He has been having issues for months, has seen a GI doctor, has had endoscopy by Dr. Vinson, has seen a vascular surgeon, Dr. Cid, but they have never been able to follow-up with a satisfactory explanation for his symptoms. He has had recent past cardiology evaluations. Including a heart cath 08/12/23. He has even been screened for AlphaGal. Recently has gone off of some medications. Taking 1/2 dose of Irbesartan 150mg and 1/2 of Clopidogrel 75mg. Recent RX pramipexole. Per H&P This is a 59-year-old male who saw Dr. Vinson in May for EGD with concerns for nausea, retrosternal chest pressure, dysphagia/difficulty swallowing and globus sensation. He has lost weight. Patient has already seen GI in [place] and had a panendoscopy. No significant findings on EGD but for blanching of the gastric mucosa that was concerning for gastric or mesenteric angina. The patient followed back up with Dr. Douglas again after discussion with Dr. Vinson who still felt that there was no evidence of arterial abnormalities. The patient is status postacute [place] in May 2023. He has been on Plavix. He has seen Dr. Khoury previously for chronic anemia felt likely to be related to chronic renal dysfunction. Patient's hemoglobin normally runs between 10 and 12. He did have a syncopal episode at home and was found to be acutely dehydrated upon arrival to the ER with very low sodium and magnesium levels. He was treated with 2 L normal saline in the ER and placed on 100 mL/h afterwards. His hemoglobin was 12.2 initially. He was seen by cardiology and underwent heart cath yesterday about 1:00. He did have single stent placed. Was treated with heparin and then daily Lovenox. Patient had a drop in hemoglobin down to 7.0 and then 7.5, normocytic and normochromic. He reports a single episode of melena in stool this morning. He has not had any further bleeding or melena. We are awaiting Hemoccult testing if he has another bowel movement. BUN elevated at 62. He is currently receiving 2 units packed red cells. No hy potension. He is mildly tachycardic intermittently. Patient reports he feels terrible . He is able to answer questions appropriately Hospital Course Hospital Course Hospital Course: Patient had a cardiac cath on 11/05/2024 and was found to have severe ostial dominant right disease with successful stenting. He was followed by cardiology throughout his stay. Following day after the cardiac cath he did have a drop in his hemoglobin. He did not feel well. He described some lower abdominal pain. Hemoglobin had dropped to 7.5. He did have abdominal CT and CTA which showed no active bleeding and he did not have an aortic aneurysm. Gastroenterology was consulted. Stool was positive for blood. He did have an EGD which showed prepyloric ulcers with no active bleeding. He was treated with epinephrine and biopsies were taken. Patient also was noted to be on a Protonix drip. Patient did require infusion of 2 units of packed red blood cells. Hemoglobin stabilized and patient began to feel better. He had no further abnormal stools. He was able to eat breakfast and on 11/09/2024 he was anxious to go home. Hemoglobin at that time was 9.5 with hematocrit of 27.6. Creatinine was at 1. Patient was to be discharged on Plavix 75 mg daily, irbesartan 75 mg daily and atorvastatin 40 mg daily. He was to follow-up in the office of [facility] as well as with cardiology. Other meds as per [facility]. Following our notes from procedure per Dr. Valderrama: Procedure Performed:: Esophagogastroduodenoscopy with epinephrine injection and biopsy Indications:: Melena Performing Provider:: Surinder Valderrama MD Findings:: Prepyloric/pyloric channel ulcerations (adjacent ulcerations) No active bleeding No clot at base 10 mL of epinephrine injected circumferentially around ulcers Antral biopsy obtained Specimens:: Antral biopsy Recommendations:: Continue medical therapy for peptic ulcer disease Continue to follow serial hemoglobin/hematocrit Repeat esophagogastroduodenoscopy in 6-8 weeks Follow-up pathology Complications:: No immediate Estimated blood obtained (mL): 1 Exam Data for Last 24 hours Vital signs and Labs for Last 24 Hours: Temp Pulse Resp BP Pulse Ox O2 Del Method 98.7 F 71 18 154/72 H 97 Room Air 11/09/24 08:00 11/09/24 08:00 11/09/24 08:00 11/09/24 08:00 11/09/24 08:00 11/09/24 09:00 I & O for Last 24 hours: Intake & Output 11/09/24 11/10/24 11/11/24 11/12/24 11:59 11:59 11:59 11:59 Intake Total 1356.37 / 1356.37 Output Total 2024 Balance -668.63 / -668.63 Weight 132 lb 7 oz Narrative: [facility] 11/09/2024 Constitutional: Present no acute distress Respiratory: Present normal respiratory effort Cardiac: Present Reg Rate and Rhythm GI: Present soft and normal bowel sounds; Absent tenderness, guarding or rebound Extremities: Present normal inspection and full ROM Skin: Present intact; Absent erythema Neuro: Present Grossly Intact and moves all extremities Results Data Completed and Pending Completed studies during hospitalization [Text1]: 11/06/24 07:09: Blood Type O Positive, Antibody Screen Negative, Crossmatch (AHG) See Detail 11/08/24 04:55: Sodium 132 L, Potassium 3.7, Chloride 101, Carbon Dioxide 25, Anion Gap 9.7, BUN 20 D, Creatinine 1.00 D, Estimated Creat Clear 65, Estimated GFR 76, Est GFR ( Amer) 92 D, Glucose 88, Calcium 8.0 L, Total Bilirubin 0.3, AST 17, ALT 11 L, Alkaline Phosphatase 43, Total Protein 4.6 L, Albumin 2.7 L, Globulin 1.9, Albumin/Globulin Ratio 1.4 11/08/24 17:56: Hgb 9.6 L D, Hct 27.7 L 11/09/24 06:22: WBC 8.6, RBC 3.27 L D, Hgb 9.5 L, Hct 27.6 L, MCV 84.4, MCH 29.1, MCHC 34.4, RDW 13.2, Plt Count 263, MPV 9.7, Neut % (Auto) 73.9, Lymph % (Auto) 15.2, [place] % (Auto) 7.1, Eos % (Auto) 3.0, Baso % (Auto) 0.5, Neut # (Auto) 6.4, Lymph # (Auto) 1.3, [place] # (Auto) 0.6, Eos # (Auto) 0.3, Baso # (Auto) 0.0 11/08/2024 CXR IMPRESSION: No acute abnormality. 11/06/2024 CTA of abdomen IMPRESSION: No evidence of active bleeding or iliofemoral pseudoaneurysm. Iliac artery stenoses. Abnormal enhancement of the kidneys as above which could represent embolic disease or infection. 11/06/2024 CT of Abd/pelvis IMPRESSION: No evidence of retroperitoneal hemorrhage 11/05/2024 ECHO Conclusion Normal biventricular systolic function. Mild MR, mild AI. 11/05/2024 cardiac cath IMPRESSION Severe ostial dominant right disease as described above Successful stenting of the ostial proximal right coronary severe disease reduced to 0% with 1 drug-eluting stent Preserved ejection fraction Normal LVEDP PLAN 1. Dual antiplatelet therapy 2. Cardiac rehabilitation 3. Avoidance of tobacco product 4. Risk factor modification 5. LDL less than 55 achieved with high intensity statin DS: Diagnosis Discharge Diagnosis (1) Syncope: Status: Acute Code(s): R55 - Syncope and collapse Qualifiers: Syncope type: unspecified Qualified Code(s): R55 - Syncope and collapse (2) Chest pain: Status: Acute Code(s): R07.9 - Chest pain, unspecified Qualifiers: Chest pain type: other chest pain Qualified Code(s): R07.89 - Other chest pain (3) Pyloric ulcer: Status: Acute Code(s): K25.9 - Gastric ulcer, unspecified as acute or chronic, without hemorrhage or perforation (4) CAD (coronary artery disease): Status: Chronic Code(s): I25.10 - Atherosclerotic heart disease of [place] coronary artery without angina pectoris Qualifiers: Coronary Disease-Associated Artery/Lesion type: [place] artery [place] vs. transplanted heart: [place] heart Associated angina: with other forms of angina Qualified Code(s): I25.118 - Atherosclerotic heart disease of [place] coronary artery with other forms of angina pectoris (5) History of coronary artery stent placement: Status: Acute Code(s): Z95.5 - Presence of coronary angioplasty implant and graft (6) Fatigue: Status: Chronic Code(s): R53.83 - Other fatigue Qualifiers: Fatigue type: chronic, unspecified Qualified Code(s): R53.82 - Chronic fatigue, unspecified (7) HTN (hypertension): Status: Acute Code(s): I10 - Essential (primary) hypertension Qualifiers: Hypertension type: unspecified Qualified Code(s): I10 - Essential (primary) hypertension (8) Abnormal weight loss: Status: Acute Code(s): R63.4 - Abnormal weight loss (9) Hyponatremia: Status: Acute Code(s): E87.1 - Hypo-osmolality and hyponatremia (10) Hypomagnesemia: Status: Acute Code(s): E83.42 - Hypomagnesemia (11) Anemia: Status: Acute Code(s): D64.9 - Anemia, unspecified Qualifiers: Anemia type: unspecified type Qualified Code(s): D64.9 - Anemia, unspecified (12) Complaint of melena: Status: Acute Code(s): K92.1 - Melena (13) Severe protein-calorie malnutrition: Status: Acute Code(s): E43 - Unspecified severe protein-calorie malnutrition Meds Home Medications and Allergies Home Medications ?Medication ?Instructions ?Recorded ?Confirmed ?Type nitroglycerin 0.4 mg sublingual 0.4 mg sublingual Q5MI [facility] PRN Chest 08/13/24 11/05/24 History tablet Pain azelastine 137 mcg-fluticasone 50 1 spray intranasal B ID 11/05/24 11/05/24 History mcg/spray nasal spray clopidogrel 75 mg tablet 37.5 mg PO DAILY 11/05/24 History irbesartan 150 mg tablet 75 mg PO DAILY 11/05/2410/15 History ondansetron 8 mg disintegrating 8 mg PO Q12HP PRN naus ea and 11/05/24 11/05/24 History tablet vomiting pramipexole 0.125 mg tablet 0.125 mg PO DAILY 11/05/24 11/05/24 History atorvastatin 40 mg tablet 40 mg PO HS #90 tabs 5 Rx esomeprazole magnesium 40 mg 40 mg PO DAILY #60 caps 0 11/09/24 Rx capsule,delayed release ferrous sulfate 325 mg (65 mg 325 mg PO BID #100 tabs 11/09/24 Rx iron) tablet metoclopramide HCl 5 mg tablet 5 mg PO AC #90 tabs Rx sucralfate 100 mg/mL oral 1 g (10 mL) PO ACHS #500 mL 11/09/24 Rx suspension New Prescriptions to Start Prescriptions: atorvastatin Dorota Patton esomeprazole magnesium Dorota Patton ferrous sulfate Dorota Patton metoclopramide HCl Dorota Patton sucralfate Dorota Patton Allergies Allergy/AdvReac Type Severity Reaction Status Date / Time No Known Allergies Allergy Verified 11/02/24 10:44 Discharge Plan Disposition Patient Disposition: Home, Self-Care Discharge Order Discharge Orders: Discharge Order (Routine); Ordered 11/09/24 Ordered By: Dorota Patton Follow up Plan Follow up with: Prateek Vinson II, MD [Staff Physician, Gastroenterology] - 11/29/24 12:00 pm Dorota Patton MD [Staff Physician, Medical] - 11/19/24 3:15 pm Ramana Rao PA [Physician Catering Sales Manager, Cardiology] - 11/15/24 3:00 pm Surinder Valderrama MD [Staff Physician, General Surgery] - 11/21/24 1:30 pm Prescriptions/Medication Reconciliation: New atorvastatin 40 mg Tablet 40 mg PO HS Qty: 90 1RF sucralfate 100 mg/mL Suspension 1 g PO ACHS Qty: 500 3RF metoclopramide HCl 5 mg Tablet 5 mg PO AC Qty: 90 3RF ferrous sulfate 325 mg (65 mg iron) Tablet 325 mg PO BID Qty: 100 3RF esomeprazole magnesium 40 mg capsule,delayed release(DR/EC) 40 mg PO DAILY Qty: 60 2RF Continued nitroglycerin 0.4 mg tablet, sublingual 0.4 mg sublingual Q5MINP PRN (Reason: Chest Pain) Patient Comments: DISSOLVE ONE TABLET UNDER THE TONGUE EVERY 5 MINUTES NEEDED FOR CHEST PAIN. DO NOT EXCEED A TOTAL OF 3 DOSES IN 15 MINUTES Rx Instructions: DISSOLVE ONE TABLET UNDER THE TONGUE EVERY 5 MINUTES NEEDED FOR CHEST PAIN. DO NOT EXCEED A TOTAL OF 3 DOSES IN 15 MINUTES pramipexole 0.125 mg tablet 0.125 mg PO DAILY Patient Comments: TAKE 1 TABLET BY MOUTH ONCE DAILY azelastine-fluticasone 137-50 mcg/spray spray,non-aerosol 1 spray INTRANASAL BID Patient Comments: USE 1 SPRAY(S) IN EACH NOSTRIL TWICE DAILY clopidogrel 75 mg tablet 37.5 mg PO DAILY Rx Instructions: pt takes 1/2 pill of 75 mg ondansetron 8 mg tablet,disintegrating 8 mg PO Q12HP PRN (Reason: nausea and vomiting) irbesartan 150 mg tablet 75 mg PO DAILY Patient Comments: TAKE 1 TABLET BY MOUTH ONCE DAILY Rx Instructions: 0.5 tablet of 150 mg Other Ambulatory Orders: Basic Metabolic Panel (Routine) Timeframe: 20241115 Facility: [facility] - Location: Laboratory Ordered By: Александр Barillas Complete Blood Count Auto Diff (Routine) Timeframe: 20241115 Facility: [facility] - Location: Laboratory Ordered By: Александр Barillas Problem Reconciliation Problems Reviewed?: Yes Patient Discharge Instructions ACTIVITY: Ambulate as tolerated DIET: regular diet Patient Instructions: DI for Syncope in Adults (Fainting), DI for Blood Transfusion, DI for Cardiac Catheterization, DI for Hyponatremia, DI for Surgical Site Infection, DI for Coronary Artery Disease, DI for Central Line- Associated Bloodstream Infections, Stop Light Infection Print Language: British Providers Primary Care Provider: Provider,Referral Admit Provider: Droota Patton Attending Provider: Dorota Patton
== END 2024-11-09 11:30 | disposition home or self-care (01) | DRG 321 ==
LOC: ER 06:49 → 2ND 07:51 → ICU 11-06 11:23 → 2ND 11-07 13:32
PROVIDERS: Emergency Medicine; Internal Medicine; Internal Medicine Adolescent Medicine; Nurse Practitioner Family; Physician Assistant; Student in an Organized Health Care Education/Training Program; Surgery; Admitting Provider Family Medicine; Emergency Provider Student in an Organized Health Care Education/Training Program; Visit Provider Family Medicine
PROC: 4A023N7 Measurement of Cardiac Sampling and Pressure, Left Heart, Percutaneous Approach (ICD-10-PCS; CPT 93452; principal; 2024-11-05 11:15)
PROC: 0DJ08ZZ Inspection of Upper Intestinal Tract, Via Natural or Artificial Opening Endoscopic (ICD-10-PCS; principal; 2024-11-08 07:00)
DX: I25.110 Atherosclerotic heart disease of native coronary artery with unstable angina pectoris (principal); E43 Unspecified severe protein-calorie malnutrition; K25.0 Acute gastric ulcer with hemorrhage; T82.855A Stenosis of coronary artery stent, initial encounter; E87.1 Hypo-osmolality and hyponatremia; E86.0 Dehydration; E83.42 Hypomagnesemia; J44.9 Chronic obstructive pulmonary disease, unspecified; I12.9 Hypertensive chronic kidney disease with stage 1 through stage 4 chronic kidney disease, or unspecified chronic kidney disease; E78.5 Hyperlipidemia, unspecified; G47.33 Obstructive sleep apnea (adult) (pediatric); F17.210 Nicotine dependence, cigarettes, uncomplicated; R13.10 Dysphagia, unspecified; F32.A Depression, unspecified; Q67.6 Pectus excavatum; K21.9 Gastro-esophageal reflux disease without esophagitis; N18.30 Chronic kidney disease, stage 3 unspecified; I70.1 Atherosclerosis of renal artery; E83.52 Hypercalcemia; D64.9 Anemia, unspecified; Y71.1 Therapeutic (nonsurgical) and rehabilitative cardiovascular devices associated with adverse incidents; Z79.899 Other long term (current) drug therapy; Z28.21 Immunization not carried out because of patient refusal; Z95.820 Peripheral vascular angioplasty status with implants and grafts; Z82.49 Family history of ischemic heart disease and other diseases of the circulatory system; Z79.02 Long term (current) use of antithrombotics/antiplatelets; Z68.20 Body mass index [BMI] 20.0-20.9, adult
CPT/HCPCS: 36415; 36430; 71045; 74175; 74176; 76706; 80048; 80053; 81001; 82533; 82962; 83690; 83735; 84484; 85014; 85018; 85025; 85347; 85378; 86803; 86850; 93005; 93306; 99152; C1725; C1751; C1760; C1769; C1874; C1894; J0171; J1200; J1644; J1650; J2250; J2270; J2405; J2470; J3010; J3475; J7030; P9016; Q9967

== ENCOUNTER 2024-11-15 13:38 | Outpatient (CLI) | payer BC, SELFPAY ==
--- OUTSIDE RECORDS SUMMARY | 2024-07-30 11:15 | XMS_ITS ---
Author Organization [facility] Address [facility] [address] [facility] [address] [place] [id number] Care Team Providers Care Pathology Manager Name Role Phone Elodia Patton Primary Care Provider [phone] Allergies Allergen (clinical drug ingredient) Drug/Non Drug [...] Interpretation:Normal Performing Lab: Notes/Report: Test performed by [facility] [address] [place], [place] [address]Dr. [address] , [place] [address] Marcus Gunderson MD, Service Clerk CLIA: [id number] Allergen, Food, Alpha Galactose (Alpha-Gal) IgE <0.1 <0.10-0.34 kU/L Allergy Footnotes Reviewed date:08/08/2024 05:14:55 PM Interpretation:Normal Performing Lab: Notes/Report: Test performed by [facility] [address] [place], [place] [address]Dr. [address] , [place] [address] Marcus Gunderson MD, Service Clerk CLIA: [id number] Allergy Footnotes SEE COMMENT Reference Ranges and [...] 75 MG 1 tablet Orally Once a day; Duration: 30 day(s) Active amLODIPine Besylate 5 MG 1 tablet Orally Once a day; Duration: 90 days Active Metoprolol Succinate ER 50 MG 1/2 tab Active Sucralfate 1 GM 2 Orally Twice a day ; Duration: 30 days 07/30/2024 Active Iberogast - as directed Orally Active Irbesartan 150 MG 1 tablet Orally Once a day; Duration: 30 day(s) Active Nitroglycerin 0.4 MG 1 tab(s) sublingual ly every 5 minutes Active Voquezna 20 MG 1 tablet Orally Once a day; Duration: 30 day(s) Active Align - as directed Orally A ctive Librax 5-2.5 MG 1 capsule before cortney ls Orally Three times a day; Duration: 30 days 07/30/2024 Active Problems Problem Type SNOMED Code ICD Code Onset Dates Problem Status W/U Status Risk Notes Problem Dysphagia (35392686) Dysphagia (R13.10) Active confirmed Problem Dyspepsia (K30) Active confirmed Vital Signs Blood pressure systolic 142 mm Hg 07/31/19 25 Blood pressure diastolic 70 mm Hg 025 Heart Rate 65 /min 07/30/2024 Height 68.75 in 07/30/2024 Weight 137.2 lbs 07/30/2024 BMI 20.41 kg/m2 07/30/2024 Encounters Encounter Location Date Provider Diagnosis [facility] [address] [place] [phone] 07/30/2024 Elodia Patton Weight loss R63.4 ; Dysphagia R13.10 and Dyspepsia K30 Assessments Encounter Date Diagnosis (ICD Code) Assessment Notes Treatment Notes Treatment Clinical Notes Section Notes 07/30/2024 Weight loss (ICD-10 - R63.4) 07/30/2024 Dysphagia (ICD-10 - R13.10) 07/30/2024 Dyspepsia (ICD-10 - K30) Plan Of Treatment Medication Medication Name Sig Start Date Stop Date Notes Sucralfate 1 GM 2 Orally Twice a day; Duration: 30 days Librax 5-2.5 MG 1 capsule before cortney ls Orally Three times a day; Duration: 30 days 07/30/2024 Next Appt Details Follow Up: 3 Weeks, Reason: Provider Name:Elodia Payne er, 11/19/2024 03:15:00 PM, [address], [address], [place], [phone], Progress Notes * МАРИНА HALLDOB: [birth year] (59 yo M)Acc No.[id number]:07/30/2024 Progress Notes Patient: МАРИНА WALKER Provider: Elodia Patton M.D. :1965 A ge:58 Y S ex:Male Date:07/30/2024 Address:[address] [place] [address] , [id number] Subjective: * Chief Complaints: * 1 . [...] * Surgical History: C 4-C5 Neck Fusion 2015, [facility]- [facility] 12/31/2019. * Hospitalization/Major Diagno stic Procedure: M [...] G eneral Examination: General Appearance: N AD. H EENT: u nremarkable.?Oral cavity: n o lesions, mucosa moist and WNL, no erythema. N consuelo: s upple, no lymphadenopathy. C hest: n ormal shape and expansion. H eart: R SR. L ungs: c lear to auscultation. A bdomen: s oft , nontender , no organomegaly or masses, surgical scar , hyperactive BS. N eurologic Exam: I ntact, gait normal. S kin: n ormal, no rash.?Peripheral pulses: n ormal (2+) bilaterally. E xtremities: n o leg edema. Assessment: * Assessment: [...] while patient in office. 2.?Dysphagia?LAB: P-Alpha Gal, Dnctsrpob-Fkxzz-6,3-Galactose (Alpha-Gal) IgE (Collection Date & Time - 07/30/2024 03:10 PM)?Normal* Value Reference Range G bggrboqw-Cxnhz-2,3-Galactose (Alpha-Gal) IgE <0.1 <0.10-0.34 - kU/L * [...] 90 Capsule, Refills 2. ?LAB: P-Alpha Gal, Eyrpredch-Pexxa-7,3-Galactose (Alpha-Gal) IgE (Collection Date & Time - 07/30/2024 03:10 PM)?Normal* Value Reference Range G yoqqeyjp-Rtjro-3,3-Galactose (Alpha-Gal) IgE <0.1 <0.10-0.34 - kU/L * [...] A llergy Footnotes SEE COMMENT - * [facility], IT support 08/02/2024 03:30:07 : This order was created by the Interface. Maryana Castro 08/08/2024 5:14:16 PM >Patient informed of normal results. * Procedure Codes: 3 6416 CAPILLARY BLOOD DRAW, [address]0006 CBC WITH AUTO DIFF, 3077F SYST BP = 140 MM HG6 IT, 3078F DIAST BP < 80 MM HG * Follow Up: 3 Weeks * Images: Billing Information: * Visit Code: 34175 Office Visit, Est Pt., Level 4. * Procedure Codes: 88979 CAPILLARY BLOOD DRAW. 31043 CBC WITH AUTO DIFF. 3077F SYST BP = 140 MM HG6 IT. 3078F DIAST BP < 80 MM HG. * Electronic signature of Elodia Patton MD on 11/15/2024 at 01:47 PM EDT Sign off status: Pending * Provider: Elodia Patton M.D. Date: 0 07/30/2024 Generated for Printi ng/Lucie/eTransmitting on: 0 11/15/2024 01:47 PM EDT History and Physical Notes * HPI [...]
--- OUTSIDE RECORDS SUMMARY | 2024-08-20 11:15 | XMS_ITS ---
Author Organization [facility] Address [facility] [address] [place] [phone] Care Team Providers Care Computer Specialist Name Role Phone Elodia Patton Primary Care [...] W/U Status Risk Notes Problem Oropharyngeal dysphagia (14403595) Oropharyngeal dysphagia (R13.12) Active confirmed Vital Signs Blood pressure systolic 140 mm Hg 08/21/19 25 Blood pressure diastolic 70 mm Hg 025 Heart Rate 66 /min 08/20/2024 Height 68.75 in 08/20/2024 Weight 140.4 lbs 08/20/2024 BMI 20.88 kg/m2 08/20/2024 Encounters Encounter Location Date Provider Diagnosis [facility] [address] [facility] 36 [facility] [address] [place] [id number] 08/20/2024 Elodia Patton Oropharyngeal dyspha selwyn R13.12 [...] 4 Weeks, Reason: Provider Name:Elodia Payne er, 11/19/2024 03:15:00 PM, [address] [facility], [address], [place], [phone], Progress Notes * KARINA HALL: [birth year] (59 yo M)Acc No.[id number]:08/20/2024 Progress Notes Patient: МАРИНА WALKER Provider: Elodia Patton M.D. :1965 A ge:58 Y S ex:Male Date:08/20/2024 Address:[address] [place] [address] [id number] Subjective: * Chief Complaints: * 1 . [...] C 4-C5 Neck Fusion 2015, [facility]- [facility] [employer] 12/31/2019. * Hospitalization/Major Diagno stic Procedure: M [...] ysuria - R30.0 ? 3 . B ME 20.0-20.9, adult - Z68.20 Plan: * Treatment: [...] * Images: Billing Information: * Visit Code: 62632 Office Visit, Est Pt., Level 3. * Procedure Codes: 75931 Urinalysis, no micro. 3077F SYST BP = 140 MM HG6 IT. 3078F DIAST BP < 80 MM HG. * Electronic signature of Elodia Patton MD on 11/15/2024 at 01:47 PM EDT Sign off status: Pending * Provider: Elodia Patton M.D. Date: 0 08/20/2024 Generated for Jacinto mendieta/Lucie/eTransmitting on: 0 11/15/2024 01:47 PM EDT History [...]
--- OUTSIDE RECORDS SUMMARY | 2024-10-25 06:00 | XMS_ITS ---
Author Organization [facility] Address [address] [facility] [address] [facility] [address] [place] [id number] Care Team Providers Care Library Technical Assistant Name Role Phone Elodia Patton Primary Care Provider Shawn Mcgee Unavailable [phone] Allergies Allergen (clinical drug ingredient) Drug/Non Drug Allergy documented on EMR Reaction Allergy Type Onset Date Status hydroxyzine hydrOXYzine Unknown Drug Allergy Act alok Results Component Value Reference Range Notes CBC Venipuncture (in house) Reviewed date:10/26/2024 10:54:13 AM Interpretation:Normal Performing Lab: Notes/Report: Normal wbc 7.1 3.5 - 10 lymph 22.1 15 - 50 mid 7.0 2 - 15 gran 70.9 35 - 80 rbc 5.27 3.5 - 5.5 hgb 14.7 11.5 - 16.5 hct 44.5 35 - 55 mcv 84.4 75 - 100 mch 27.9 25 - 35 mchc 33.1 31 - 38 platlet 459 100 - 400 P-Amylase Reviewed date:10/26/2024 10:54:13 AM Interpretation:191 Performing Lab: Notes/Report: Test performed by [facility] [address] [place] [address] , [address], [place] [address] Marcus Gunderson MD, Driver Guide CLIA: [id number] Amylase 191 28-100 U/L P-Comprehensive Metabolic Pa quita (CMP) Reviewed date:10/26/2024 10:54:13 AM Interpretation:Na 132, Chl 93, Creat 1.72, Parmjit 10.8, eGFR 45 Performing Lab: Notes/Report: Test performed by [facility] [address] [place] [address] Natanael Connors, [address], [place] [address] Marcus Gunderson MD, Driver Guide CLIA: [id number] Sodium 132 135-145 mmol/L Potassium 4.6 3.5-5.3 mmol/L Chloride 93 97-108 mmol/L CO2 25 22-32 mmol/L Glucose 71 65-99 mg/dL BUN 20 8-23 mg/dL Creatinine 1.72 0.70-1.30 mg/dL Calcium 10.8 8.6-10.4 mg/dL eGFR by Creatinine 45 >59 mL/min/1.73m2 Protein 7.1 6.0-8.3 g/dL Albumin 4.7 3.5-5.3 g/dL Alkaline Phosphatase 63 40-129 IU/L ALT (SGPT) 9 <5-55 IU/L AST (SGOT) 19 <5-46 IU/L Bilirubin, Total 0.3 <0.2-1.2 mg/dL A/G Ratio 2.0 1.1-2.5 S-B-Ctedjtow Protein (CRP) Reviewed date:10/26/2024 10:54:13 AM Interpretation:Normal Performing Lab: Notes/Report: Test performed by [facility] [address] [place] [address] , [place] [address] Marcus Gunderson MD, Driver Guide CLIA: [id number] C-Reactive Protein (CRP) 0.26 <0.50 mg/dL P-Sed Rate (ESR) Reviewed date:10/26/2024 10:54:13 AM Interpretation:Normal Performing Lab: Notes/Report: Test performed by [facility] [address] [place] [address] , [facility] [address], [place] [address] Marcus Gunderson MD, Driver Guide CLIA: [id number] Erythrocyte Sedimentation Rate (ESR), Automated 5 <21 mm/hr P-Lipase Reviewed date:10/26/2024 10:54:13 AM Interpretation:154.1 Performing Lab: Notes/Report: Test performed by [facility] [address] [place] [address] , [address], [place] [address] Marcus Gunderson MD, Driver Guide CLIA: [id number] Lipase 154.1 13.0-60.0 u/L P-TSH reflex to FT4 Reviewed date:10/26/2024 10:54:13 AM Interpretation:Normal Performing Lab: Notes/Report: Test performed by [facility] [email or web address] [address] [place] [address] , [address], [place] [address] Marcus Gunderson MD, Driver Guide CLIA: [id number] TSH reflex to FT4 1.88 0.43-5.25 mU/L REASON FOR VISIT B/P low and weak and dizzy Medications Medication SIG (Take, Route, Frequency, Duration) Notes Start Date End Date Status Plavix 75 MG 1 tablet Orally Once a day; Duration: 30 day(s) Active Metoprolol Succinate ER 50 MG 1/2 tab Not-Taking Pantoprazole Sodium 40 MG 1 tablet Orall y Once a day Not-Taking dexAMETHasone 2 MG 1 tablet Orally twic e a day; Duration: 5 days 10/25/2024 Active Irbesartan 150 MG 1 tablet Orally Once a day; Duration: 30 day(s) Active Pramipexole Dihydrochloride 0.125 MG 1 tablet Orally Once a day; Duration: 90 days 10/25/2024 Active Iberogast - as directed Orally Not-Taking Isosorbide Mononitrate ER 60 MG 1 tablet in the morning Orally Once a day Not-Taking Dymista 137-50 MCG/ACT 1 spray in each nostril Nasally Twice a day; Duration: 30 days 10/25/2024 Active Align - as directed Orally N ot-Taking Librax 5-2.5 MG 1 capsule before cortney ls Orally Three times a day; Duration: 30 days 07/30/2024 Not-Takin g amLODIPine Besylate 5 MG 1 tablet Orally Once a day; Duration: 90 days Not-Takin g Sucralfate 1 GM 2 Orally Twice a day ; Duration: 30 days 07/30/2024 Not-Taking Metoclopramide HCl 5 MG 1 tablet before meals Orally three times a day as needed; Duration: 30 days 08/20/2024 Not-Taking Voquezna 20 MG 1 tablet Orally Once a day; Duration: 30 day(s) Not-Taking Nitroglycerin 0.4 MG 1 tab(s) sublingual ly every 5 minutes Active Problems Problem Type SNOMED Code ICD Code Onset Dates Problem Status W/U Status Risk Notes Problem Chronic rhinitis (90419554) Chronic rhinitis (J31.0) Active confirmed Vital Signs Blood pressure systolic 112 mm Hg 10/26/19 25 Blood pressure diastolic 68 mm Hg 025 Heart Rate 97 /min 10/25/2024 Height 68.75 in 10/25/2024 Weight 133 lbs 10/25/2024 BMI 19.78 kg/m2 10/25/2024 Encounters Encounter Location Date Provider Diagnosis [facility] [address] [facility] [address] [facility] [address] [place] [id number] 10/25/2024 Shawn Mcgee Chronic rhinitis J31 .0 ; Nausea R11.0 ; Weight loss R63.4 ; Renal insufficiency N28.9 and Restless leg G25.81 Assessments Encounter Date Diagnosis (ICD Code) Assessment Notes Treatment Notes Treatment Clinical Notes Section Notes 10/25/2024 Chronic rhinitis (ICD-10 - J31.0) 10/25/2024 Nausea (ICD-10 - R11.0) 10/25/2024 Weight loss (ICD-10 - R63.4) 10/25/2024 Renal insufficiency (ICD-10 - N28.9) 10/25/2024 Restless leg (ICD-10 - G25.81) Plan Of Treatment Medication Medication Name Sig Start Date Stop Date Notes dexAMETHasone 2 MG 1 tablet Orally twic e a day; Duration: 5 days 10/25/2024 Pramipexole Dihydrochloride 0.125 MG 1 tablet Orally Once a day; Duration: 90 days 10/25/2024 Dymista 137-50 MCG/ACT 1 spray in each n ostril Nasally Twice a day; Duration: 30 days 10/25/2024 Next Appt Details Follow Up: 5 Weeks, Reason: Provider Name:Elodia Payne , 11/19/2024 03:15:00 PM, [facility] [address] [facility], [address], [place], [id number], Progress Notes * МАРИНА HALLDOB: [birth year] (59 yo M)Acc No.[id number]:10/25/2024 Progress Notes Patient: МАРИНА WALKER Provider: Ekaterina Mcgee M.D. :1965 A ge:59 Y S ex:Male Date:10/25/2024 Address:[address] [place] [address] Judd Irby [id number] Pcp:Elodia Patton Subjective: * Chief Complaints: * 1 . B/P low and weak and dizzy. * HPI: C ardiology: 59 year old male presents with c/o Dizziness. c/o Hypotension P t present today with c/o blood pressures running low. Pt sts that he has been getting dizzy on and off for about week. Pt sts that yesterday a job that typically takes him 30 minutes took him 2 hours because he kept having to stop due to being dizzy and feeling close to syncope. G astroenterology: EGD P t sts that he has had an EGD done previously but c/o difficulty swallowing and sts that he has so much phlegm in his throat in the mornings that he stays nauseous. Pt also c/o a lot of indigestion and heartburn. * ROS: D ERMATOLOGY: no R ceci. n o H ria. G ASTROENTEROLOGY: no N ausea. n o V omiting. n o D iarrhea.? U ROLOGY: no D ifficulty urinating. n o B lood in urine. * Medical History: Zac I 06/03/2023, with PCI and 1 stent placed, then 4 stents placed 2 weeks later, Coronary Artery Disease, Esophageal reflux, Restless Leg Syndrome, Renal Insufficiency, Hyperlipidemia, Hypertriglyceridemia. * Surgical History: C 4-C5 Neck Fusion 2015, Neck- [facility] [employer] 12/31/2019. * Hospitalization/Major Diagno stic Procedure: Zac I 06/03/2023. * Family History: F ather: [...] arital Status: Single. * Medications: T aking Irbesartan 150 MG Tablet 1 tablet Orally Once a day , Taking Plavix 75 MG Tablet 1 tablet Orally Once a day , Taking Nitroglycerin 0.4 MG Tablet Sublingual 1 tab(s) sublingually every 5 minutes , Not-Taking Pantoprazole Sodium 40 MG Tablet Delayed Release 1 tablet Orally Once a day , Not-Taking Metoprolol Succinate ER 50 MG Tablet Extended Release 24 Hour 1/2 tab , Not-Taking Sucralfate 1 GM Tablet 2 Orally Twice a day , Not-Taking Librax 5-2.5 MG Capsule 1 capsule before meals Orally Three times a day , Not-Taking amLODIPine Besylate 5 MG Tablet 1 tablet Orally Once a day , Not-Taking Metoclopramide HCl 5 MG Tablet 1 tablet before meals Orally three times a day as needed , Not-Taking Voquezna 20 MG Tablet 1 [...] ydrOXYzine: Side Effects. Objective: * Vitals: W t: 133, Temp: 98.1, BP: 112/68, HR: 97, Nurse: MARCELA, Ht: 68.75, BMI:19.78. * Examination: G eneral Examination: General Appearance: N AD. O ral cavity: n o lesions, mucosa moist and WNL, no erythema. H eart: R SR. L ungs: c lear to auscultation.?Peripheral pulses: n ormal (2+) bilaterally. E xtremities: n o leg edema. Assessment: * Assessment: 1. C hronic rhinitis - J31.0 (Primary) 2 . N ausea - R11.0 3 . W eight loss - R63.4 4 . R enal insufficiency - N28.9 5 . R estless leg - G25.81 Plan: * Treatment: 2. N ausea L AB: P-Amylase (Collection Date & Time - 10/25/2024 09:57 AM) 1 91 Value Reference Range A mylase 191 H 28-100 - U/L * Kelin Tovar 10/26/2024 10: 54:04 AM EDT > See phone encounter ?LAB: P-Comprehensive Metabolic Panel (CMP) (Collection Date & Time - 10/25/2024 09:57 AM)?Na 132, Chl 93, Creat 1.72, Parmjit 10.8, eGFR 45* Value Reference Range A /G Ratio 2.0 1.1-2.5 - * A lbumin 4.7 3.5-5.3 - g/dL * A lkaline Phosphatase 63 40-129 - IU/L * A LT (SGPT) 9 <5-55 - IU/L * A ST (SGOT) 19 <5-46 - IU/L * B ilirubin, Total 0.3 <0.2-1.2 - mg/dL * B UN 20 8-23 - mg/dL * C alcium 10.8 H 8.6-10.4 - mg/dL * C hloride 93 L 97-108 - mmol/L * C O2 25 22-32 - mmol/L * C reatinine 1.72 H 0.70-1.30 - mg/dL * G lucose 71 65-99 - mg/dL * P otassium 4.6 3.5-5.3 - mmol/L * S odium 132 L 135-145 - mmol/L * P rotein 7.1 6.0-8.3 - g/dL * e GFR by Creatinine 45 L >59 - mL/min/1.73m2 * Kelin Tovar 10/26/2024 10: 54:04 AM EDT > See phone encounter ?LAB: P-Lipase (Collection Date & Time - 10/25/2024 09:57 AM)?154.1* Value Reference Range L ipase 154.1 H 13.0-60.0 - u/L * Kelin Tovar 10/26/2024 10: 54:04 AM EDT > See phone encounter ?LAB: CBC Venipuncture (in house) (Collection Date & Time - 10/25/2024)? Normal* Value Reference Range w bc 7.1 3.5 - 10 * l ymph 22.1 15 - 50 * m id 7.0 2 - 15 * g ran 70.9 35 - 80 * r bc 5.27 3.5 - 5.5 * h gb 14.7 11.5 - 16.5 * h ct 44.5 35 - 55 * m cv 84.4 75 - 100 * m ch 27.9 25 - 35 * m chc 33.1 31 - 38 * p latlet 459 100 - 400 * Kelin Tovar 10/25/2024 12: 15:42 PM EDT > Kelin Tovar 10/26/2024 10:54:04 AM EDT > See phone encounter 3.?Weight loss?LAB: G-W-Nrqjbfce Protein (CRP) (Collection Date & Time - 10/25/2024 09:57 AM)?Normal* Value Reference Range C -Reactive Protein (CRP) 0.26 <0.50 - mg/dL * Kelin Tovar 10/26/2024 10: 54:04 AM EDT > See phone encounter ?LAB: P-Sed Rate (ESR) (Collection Date & Time - 10/25/2024 09:57 AM)?Normal * Value Reference Range E rythrocyte Sedimentation Rate (ESR), Automated 5 <21 - mm/hr * Kelin Tovar 10/26/2024 10: 54:04 AM EDT > See phone encounter ?LAB: P-TSH reflex to FT4 (Collection Date & Time - 10/25/2024 09:57 AM)? Normal* Value Reference Range T SH reflex to FT4 1.88 0.43-5.25 - mU/L * Kelin Tovar 10/26/2024 10: 54:04 AM EDT > See phone encounter 4.?Renal insufficiency?LAB: P-Comprehensive Metabolic Panel (CMP) (Collection Date & Time - 10/25/2024 09:57 AM)?Na 132, Chl 93, Creat 1.72, Parmjit 10.8, eGFR 45* Value Reference Range A /G Ratio 2.0 1.1-2.5 - * A lbumin 4.7 3.5-5.3 - g/dL * A lkaline Phosphatase 63 40-129 - IU/L * A LT (SGPT) 9 <5-55 - IU/L * A ST (SGOT) 19 <5-46 - IU/L * B ilirubin, Total 0.3 <0.2-1.2 - mg/dL * B UN 20 8-23 - mg/dL * C alcium 10.8 H 8.6-10.4 - mg/dL * C hloride 93 L 97-108 - mmol/L * C O2 25 22-32 - mmol/L * C reatinine 1.72 H 0.70-1.30 - mg/dL * G lucose 71 65-99 - mg/dL * P otassium 4.6 3.5-5.3 - mmol/L * S odium 132 L 135-145 - mmol/L * P rotein 7.1 6.0-8.3 - g/dL * e GFR by Creatinine 45 L >59 - mL/min/1.73m2 * Kelin Tovar 10/26/2024 10: 54:04 AM EDT > See phone encounter 5.?Restless leg? Start Pramipexole Dihydrochloride Tablet, 0.125 MG, 1 tablet, Orally, Once a day, 90 days, 90 Tablet, Refills 1.?? * Procedure Codes: 8 5025 CBC WITH AUTO DIFF, G8783 BP SCR PRFRM RCMDD DEFIND SCR INTVL, G8752 MOST RECENT SYSTOLIC BP < 140MM HG, G8754 MOST RECENT DIASTOLIC BP < 90MM HG * Follow Up: 5 Weeks * Images: Billing Information: * Visit Code: 15540 Office Visit, Est Pt., Level 4. * Procedure Codes: 84525 CBC WITH AUTO DIFF. G8783 BP SCR PRFRM RCMDD DEFIND SCR INTVL. G8752 MOST RECENT SYSTOLIC BP < 140MM HG. G8754 MOST RECENT DIASTOLIC BP < 90MM HG. * Electronic signature of Nika Mcgee MD on 11/15/2024 at 01:47 PM EDT Sign off status: Pending * Provider: Ekaterina Mcgee M.D. Date: 0 10/25/2024 Generated for Jacinto mendieta/Lucie/Johanny on: 0 11/15/2024 01:47 PM EDT History and Physical Notes * HPI (History of Present Illness) Category Sub-Category Detail Notes Category Not es Cardiology Dizziness Hypotension Pt present today wit h c/o blood pressures running low. Pt sts that he has been getting dizzy on and off for about week. Pt sts that yesterday a job that typically takes him 30 minutes took him 2 hours because he kept having to stop due to being dizzy and feeling close to syncope Gastroenterology EGD Pt sts that he has had an EGD done previously but c/o difficulty swallowing and sts that he has so much phlegm in his throat in the mornings that he stays nauseous. Pt also c/o a lot of indigestion and heartburn Examination Category Sub-Category Detail Notes Category Not es General Examination Heart: RSR Lungs: clear to auscultatio n Extremities: no leg edema General Appearance: NAD Oral cavity: no lesions, mucosa m oist and WNL, no erythema Peripheral pulses: normal (2+) bilatera lly
--- OUTSIDE RECORDS SUMMARY | 2024-11-15 13:47 | XMS_ITS | Clinical Summary ---
Author Organization Healthcare Address [address] [place] [address] Care Team Providers Care Vegetable Handler Name Role Phone Noah Wagner MD Primary Care Provider [phone] Social History Tobacco Use Types Packs/Day Years Used Date Smoking Tobacco: Never Assessed Sex and Gender Information Value Date Recorded Sex Assigned at Not on file Legal Sex Male 8:26 PM EDT Gender Identity Not on file Sexual Orientation Not on file Plan of Treatment Upcoming Encounters Date Type Department Care Team (Late st Contact Info) Description 12/04/2024 9:50 AM EDT Consult [facility] [address] [place] [address] Bhupinder Ardon MD [address] [place] [address] Health Maintenance Due Date Last Done Comments [facility]-Depression Screening 1965 [facility]-HIV Screening 1965 [facility]-Hepatitis C Screening 1965 [facility]-Infant/Child/Adol SDOH Screenings 1965 [facility]- SDOH Screenings 09/18/1981 [facility]-Adult SDOH Screenings 09/18/1981 CT Colonography 09/18/2008 Colonoscopy 09/18/2008 FIT-DNA 09/18/2008 FIT 09/18/2008 FOBT 09/18/2008 Sigmoidoscopy 09/18/2008 [facility]-Colorectal Cancer Screening 09/18/2008 [id number] Vaccine ( season) 2024 08/20/2020 [facility]-Influenza Vaccine (#1) 01/14/202502/18, 02/25/2021, 03/04/2020, Additional history exists [facility]-DTaP,Tdap,and Td [...] complete this topic Insurance MICK Care Teams Vegetable Handler Relationship Specialty Start Date End Date Noah Wagner MD [address] [place] [address] #1 #1 ANNE Whaley [id number] PCP - General 09/26/20
--- OUTSIDE RECORDS SUMMARY | 2024-11-15 13:47 | XMS_ITS | Clinical Summary ---
Author Organization [facility] Address [address] [place], [place] [id number] Phone [email or web address] Care Team Providers Care Residential Sales Associate Name Role Phone Noah Wagner Primary Care Provider [phone] Allergies No known active allergies Medications desipramine [...] OPT OUT NO COPAY NB Care Teams Residential Sales Associate Relationship Specialty Start Date End Date Noah Wagner[address] [address] PCP - General Family Medicine 04/07/20
--- OUTSIDE RECORDS SUMMARY | 2024-11-15 13:47 | XMS_ITS | Data Portability ---
Author Organization [facility] TERESA Ventura Address [address] [place] [id number] Assessment No assessment recorded. Plan of Treatment [...] SNOMED-CT Code Diagnosis ICD10 Code Diagnosis Note [id number] ОЛЕГ RODRIGUEZ MD [facility] [address] [place] [phone] 09/20/2018 11:04:24 09/20/2018 16:26:54 Health Concerns Section Related Observation LastModified by Organization Detai ls LastModified Time None Recorded Concern Status LastModified by Organization Details LastModified Time None Recorded Advance Directives Directive None Recorded Payers Insurance Date Sequence Insurance Name Policy Number Policy Spencer Covered Member ID Spencer Member ID Guarantor Name 06/10/2023 1 [place] [id number] Arjun Melton [id number] Arjun Melton 09/20/2018 [facility] [employer] (BA) Arjun Melton [id number] Arjun Melton
--- OUTSIDE RECORDS SUMMARY | 2024-11-15 13:48 | XMS_ITS | Patient Health Record ---
Author Organization [facility] Address [address] [facility] [address] [facility] [address] [place] [id number] Care Team Providers Care Washer Engineer Name Role Phone Elodia Patton Primary Care Provider Shawn Mcgee Unavailable [phone] Shanda Fu Unavailable [phone] Allergies Allergen (clinical drug ingredient) Drug/Non Drug Allergy documented on EMR Reaction Allergy Type Onset Date Status hydroxyzine hydrOXYzine Unknown Drug Allergy Act alok Results Component Value Reference Range Notes CBC Venipuncture (in house) Reviewed date:11/30/2023 10:24:51 [...] Interpretation:Normal Performing Lab: Notes/Report: Test performed by [facility] [address] [place], [place] [address] [place] , [address], [place] [address] Marcus Gunderson MD, Mgmt Analyst CLIA: [id number] Vitamin B12 2306 119-2305 pg/mL P-Comprehensive Metabolic Pa quita (CMP) Reviewed date:11/30/2023 10:24:51 AM Interpretation:K+ 3.4, Cr 1.69, gfr 46 Performing Lab: Notes/Report: Test performed by [facility] [address] [place], [place] [address] [place] , [address], [place] [address] Marcus Gunderson MD, Mgmt Analyst CLIA: [id number] Sodium 137 135-145 mmol/L Potassium 3.4 3.5-5.3 [...] <0.2-1.2 mg/dL A/G Ratio 2.1 1.1-2.5 mg/dL P-Ferritin Reviewed date:11/30/2023 10:24:51 AM Interpretation:19.8 Performing Lab: Notes/Report: Test performed by [facility] [address] [place] [address] , [facility] [address] Marcus Gunderson MD, Mgmt Analyst CLIA: [id number] Ferritin 19.8 30.0-400.0 ng/mL P-Iron Reviewed date:11/30/2023 10:24:51 AM Interpretation:20 Performing Lab: Notes/Report: Test performed by [facility] [address] [place] [address] , [place] [address] Marcus uGnderson MD, Mgmt Analyst CLIA: [id number] Iron 20 59-158 ug/dL P-Vitamin D 25-Hydroxy Reviewed date:11/30/2023 10:24:51 AM Interpretation:49.8 Performing Lab: Notes/Report: Test performed by [facility] [address] [place] [address] , [place] [address] Marcus Gunderson MD, Mgmt Analyst CLIA: [id number] Vitamin D 25-Hydroxy 49.8 30.0-100.0 ng/mL Interpretation of Vitamin D 25 OH: < 20 ng/mL - Deficiency 20 - 29 ng/mL - Insufficiency 30 - 100 ng/mL - Sufficiency > 100 ng/mL - Super-therapeutic- toxicity may occur above this level. Clinical correlation required. P-Basic Metabolic Panel (BMP ) Reviewed date:01/19/2024 08:27:07 AM Interpretation: Performing Lab: Notes/Report: Test performed by [facility] [address] [place], [place] [address] [place] , [address], [place] [address] Marcus Gunderson MD, Mgmt Analyst CLIA: [id number] Sodium 138 135-145 mmol/L Potassium 4.1 3.5-5.3 mmol/L Chloride 99 97-108 mmol/L CO2 27 22-32 mmol/L Glucose 106 65-99 mg/dL BUN 12 8-23 mg/dL Creatinine 1.66 0.70-1.30 mg/dL Calcium 9.1 8.6-10.4 mg/dL eGFR by Creatinine 47 >59 mL/min/1.73m2 CBC Fingerstick (in house) Reviewed date:07/31/2024 10:05:54 [...] Interpretation:Normal Performing Lab: Notes/Report: Test performed by [facility] [address] [place], [place] [address] [place] , [address], [place] [address] Marcus Gunderson MD, Mgmt Analyst CLIA: [id number] Allergen, Food, Alpha Galactose (Alpha-Gal) IgE <0.1 <0.10-0.34 kU/L Allergy Footnotes Reviewed date:08/08/2024 05:14:55 PM Interpretation:Normal Performing Lab: Notes/Report: Test performed by [facility] [address] [place] [address] , [address], [place] [address] Marcus Gunderson MD, Mgmt Analyst CLIA: [id number] Allergy Footnotes SEE COMMENT Reference Ranges and [...] >=50.00 kU/L Very high level of sensitization Urinalysis - Inhouse Reviewed date:08/21/2024 12:48:50 PM [...] Lab: Notes/Report: CBC Venipuncture (in house) Reviewed date:10/26/2024 10:54:13 [...] Interpretation:191 Performing Lab: Notes/Report: Test performed by [facility] [address] [place] [address] , [address], [place] [address] Marcus Gunderson MD, Mgmt Analyst CLIA: [id number] Amylase 191 28-100 U/L P-Comprehensive Metabolic Pa quita (CMP) Reviewed date:10/26/2024 10:54:13 AM Interpretation:Na 132, Chl 93, Creat 1.72, Parmjit 10.8, eGFR 45 Performing Lab: Notes/Report: Test performed by [facility] [address] [place] [address] , [address], [place] [address] Marcus Gunderson MD, Mgmt Analyst CLIA: [id number] Sodium 132 135-145 mmol/L Potassium 4.6 3.5-5.3 [...] 0.3 <0.2-1.2 mg/dL A/G Ratio 2.0 1.1-2.5 Z-M-Cwvipooo Protein (CRP) Reviewed date:10/26/2024 10:54:13 AM Interpretation:Normal Performing Lab: Notes/Report: Test performed by [facility] [address] [place] [address] , [address], [place] [address] Marcus Gunderson MD, Mgmt Analyst CLIA: [id number] C-Reactive Protein (CRP) 0.26 <0.50 mg/dL P-Sed Rate (ESR) Reviewed date:10/26/2024 10:54:13 AM Interpretation:Normal Performing Lab: Notes/Report: Test performed by [facility] [address] [place] [address] [address]anael [address], [address], [place] [address] Marcus Gunderson MD, Mgmt Analyst CLIA: [id number] Erythrocyte Sedimentation Rate (ESR), Automated 5 <21 mm/hr P-Lipase Reviewed date:10/26/2024 10:54:13 AM Interpretation:154.1 Performing Lab: Notes/Report: Test performed by [facility], [address], [place] [address] Marcus Gunderson MD, Mgmt Analyst CLIA: [id number] Lipase 154.1 13.0-60.0 u/L P-TSH reflex to FT4 Reviewed date:10/26/2024 10:54:13 AM Interpretation:Normal Performing Lab: Notes/Report: Test performed by [facility], [address] , [address], [place] [address] Marcus Gunderson MD, Mgmt Analyst CLIA: [id number] TSH reflex to FT4 1.88 0.43-5.25 mU/L H-CBC Reviewed date:11/09/2024 11:55:48 AM Interpretation: Performing Lab: Notes/Report: WBC 13.7 4.8-10.8 K/mm3 RBC 2.68 4.60-6.20 M/mm3 HGB 7.5 14.1-18.0 g/dL HCT 22.9 42.0-52.0 % MCV 85.4 80-94 fl MCH 28.0 27.0-31.2 pg MCHC 32.8 31.8-35.4 g/dL RDW-SD 41.7 RDW 13.4 11.5-17.5 % PLT 398 142-424 K/mm3 MPV 9.1 7.4-10.4 fl NE% 69.6 37.0-80.0 % LY% 21.9 10-50 % MO% 5.4 1.7-9.3 % EO% 1.3 0.1-12.0 % BA% 0.7 0.1-2.0 % NRBC% 0 IG% 1.1 NE# 9.5 1.8-7.8 K/mm3 LY# 3.0 0.7-4.5 K/mm3 MO# 0.7 0.1-1.0 K/mm3 EO# 0.2 0.0-0.4 Kmm3 BA# 0.1 0-0.2 K/mm3 NRBC# 0 IG# 0.15 H-Hemoglobin/Hematocrit Reviewed date:11/09/2024 11:55:49 AM Interpretation: Performing Lab: Notes/Report: HGB 8.7 14.1-18.0 g/dL Delta: 7.5 on 11/06/24 HCT 25.1 42.0-52.0 % H-Cortisol Reviewed date:11/09/2024 11:55:48 AM Interpretation: Performing Lab: Notes/Report: BROWN 14.2 6.2-19.4 ug/dL Please Note: The reference interval and flagging for this test is for an AM collection. If this is a PM collection please use: Cortisol PM: 2.3-11.9 Performed at: [address] [id number] Nurse Companion: Jaime Jung PhD, Phone: [phone] H-UA Reviewed date:11/06/2024 01:28:38 PM Interpretation: Performing Lab: Notes/Report: Method to collect specimen clean catch UCOL YELLOW Yellow UAPP CLEAR Clear UPH 6.0 5.0-8.5 USG <= 1.005 1.005-1.030 UPRO Negative Negative UGLU Negative Negative UKET Negative Negative UBLD Negative Negative UNIT Negative Negative UBIL Negative Negative UURO 0.2 0.2 EU/dl ULEU Negative Negative UMICU URINE MICROSCOPIC MICROSCOPIC URBC None 0-3 #/hpf UWBC 3-5 0-3 #/hpf USQEPI 3-5 0-5 #/hpf UBACT Trace NONE /lpf H-Hemoglobin/Hematocrit Reviewed date:11/09/2024 11:55:48 AM Interpretation: Performing Lab: Notes/Report: Comment: STAT HGB 8.7 14.1-18.0 g/dL HCT 25.7 42.0-52.0 % H-CBC Reviewed date:11/09/2024 11:55:48 AM Interpretation: Performing Lab: Notes/Report: WBC 8.7 4.8-10.8 K/mm3 Delta: 13.7 o n 11/06/24 RBC 2.75 4.60-6.20 M/mm3 HGB 8.1 14.1-18.0 g/dL HCT 23.5 42.0-52.0 % MCV 85.5 80-94 fl MCH 29.5 27.0-31.2 pg MCHC 34.5 31.8-35.4 g/dL RDW-SD 43.1 RDW 13.9 11.5-17.5 % PLT 268 142-424 K/mm3 Delta: 398 on 11/06/24-0709 MPV 9.5 7.4-10.4 fl NE% 72.0 37.0-80.0 % LY% 14.8 10-50 % MO% 9.2 1.7-9.3 % EO% 2.6 0.1-12.0 % BA% 0.8 0.1-2.0 % NRBC% 0 IG% 0.6 NE# 6.3 1.8-7.8 K/mm3 LY# 1.3 0.7-4.5 K/mm3 MO# 0.8 0.1-1.0 K/mm3 EO# 0.2 0.0-0.4 Kmm3 BA# 0.1 0-0.2 K/mm3 NRBC# 0 IG# 0.05 H-BMP Reviewed date:11/09/2024 11:55:48 AM Interpretation: Performing Lab: Notes/Report: NA 131 136-145 mmol/L K 3.9 3.5-5.1 mmoL/L CL 105 98-107 mmol/L CO2 22 22.0-30.0 mmol/L GAP 7.9 5-15 mEq/L BUN 42 9-20 mg/dl Delta: 62 on 11/06/24-526 CREATT 1.30 0.66-1.25 mg/dl CRCLE 52 50-200 mL/min GFRAA 68 >60 ML/MIN EGFR 56 >60 ml/min GLU 94 74-100 mg/dl CA 8.2 8.4-10.2 mg/dl H-Food Allergy Profile Reviewed date:04/25/2024 09:05:24 AM Interpretation:Negative Performing Lab: Notes/Report: CLASSDESC Comment . Levels of Specific IgE Class Description of Class --- ----- < 0.10 0 Negative 0.10 - [...] SESAMEP <0.10 Class 0 kU/L Performed at: [facility] [address] [id number] Nurse Companion: Aleida Russell MD, Phone: [phone] H-Urea Breath Test Reviewed date:04/25/2024 09:05:13 AM Interpretation:Negative Performing Lab: Notes/Report: Patient Height (inches): 58.00 Patient Weight (pounds): 142 HPYBREATHR Negative Negative Performed at: [facility] [address] [id number] Nurse Companion: Jaime Jung PhD, Phone: [phone] H-Iron Reviewed date:01/10/2024 10:40:14 AM Interpretation: Performing Lab: Notes/Report: H-Ferritin Reviewed date:01/10/2024 10:40:01 AM Interpretation: Performing Lab: Notes/Report: H-CMP Reviewed date:01/10/2024 10:39:13 AM Interpretation: Performing Lab: Notes/Report: H-CBC Reviewed date:01/10/2024 10:38:58 AM Interpretation: Performing Lab: Notes/Report: H-CBC Reviewed date:01/12/2024 08:40:54 AM Interpretation:rbc 4.21, [...] 0.6 0.0-0.4 K/mm3 BA# 0.1 0-0.2 K/mm3 H-CMP Reviewed date:01/12/2024 08:40:54 AM Interpretation:N 133, cR 2.2, GFR 31, AST 15, ALT 9, PROT 6.1 Performing Lab: Notes/Report: SHARE RESULTS OF CMP WITH EDUARDO, CARDIOLOGY NA 133 136-145 mmol/L K 3.8 3.5-5.1 [...] AGRATIO 1.4 1.1-1.8 ALP 47 38-126 U/L H-Ferritin Reviewed date:01/12/2024 08:40:54 AM Interpretation:10.1 Performing Lab: Notes/Report: SHARE RESULTS OF CMP WITH JHILL, CARDIOLOGY NATY 10.1 17.9-464 ng/ml H-Iron Reviewed date:01/12/2024 08:40:54 AM Interpretation:37 Performing Lab: Notes/Report: SHARE RESULTS OF CMP WITH DONN MANNING FE 37 49-181 ug/dL H-Hemoglobin/Hematocrit Reviewed date:11/09/2024 11:55:48 AM Interpretation: Performing Lab: Notes/Report: HGB 9.6 14.1-18.0 g/dL Delta: 7.4 on 11/08/24-0500 HCT 27.7 42.0-52.0 % Reason For Referral Reason Iron infusions due t o low iron level Diagnosis 1 Iron deficiency (E61 .1) Referral Organization [facility] Referring Provider First Name Shanda Referring Provider Last Name Tank Referring Provider Speciality Physician Fitness And Wellness Director Referred Provider Specialty Hematology General Notes Dimple Berg 01/12/20 11:57:59 AM > faxed referral and labs to [facility] Oncology Referral Priority Routine Diagnosis 1 Esophageal dysphagia (R13.19) Referral Organization [facility] Referring Provider First Name Shanda Referring Provider Last Name Tank Referring Provider Speciality Physician Fitness And Wellness Director Referred Provider Gastroenterology, . Referred Provider Specialty [...] a day; Duration: 30 days 10/25/2024 Active Metoclopramide HCl 5 MG 1 tablet before meals Orally three times a day as needed; Duration: 30 days 08/20/2024 Not-Taking Voquezna 20 MG 1 tablet Orally Once a day; Duration: 30 day(s) Not-Taking Plavix 75 MG 1 tablet Orally Once a day; Duration: 30 day(s) Active Metoprolol Succinate ER 50 MG 1/2 tab Not-Taking Pramipexole Dihydrochloride 0.125 MG 1 tablet Orally Once a day; Duration: 90 days 10/25/2024 Active Pantoprazole Sodium 40 MG 1 tablet Orall y Once a day Not-Taking Iberogast - as directed Orally Not-Taking dexAMETHasone 2 MG 1 tablet Orally twic e a day; Duration: 5 days 10/25/2024 Active Irbesartan 150 MG 1 tablet Orally Once a day; Duration: 30 day(s) Active Isosorbide Mononitrate ER 60 MG 1 tablet in the morning Orally Once a day Not-Taking Librax 5-2.5 MG 1 capsule before cortney ls Orally Three times a day; Duration: 30 days 07/30/2024 Not-Takin g amLODIPine Besylate 5 MG 1 tablet Orally Once a day; Duration: 90 days Not-Takin g Nitroglycerin 0.4 MG 1 tab(s) sublingual ly every 5 minutes Active Sucralfate 1 GM 2 Orally Twice a day ; Duration: 30 days 07/30/2024 Not-Taking Align - as directed Orally N ot-Taking Immunizations Vaccine Route Administration Date Status Comme nts COVID 19 Pfizer Unknown 08/20/2020 Administered Fluzone PF Quad (6-35 months) Unknown 02/08/2017 Admini stered Fluzone PF Quad (6-35 months) Unknown 02/25/2021 Admini stered Fluzone PF Quad (6-35 months) Unknown 02/18/2022 Admini stered PNEUMOVAX 23 VACCINE Unknown 07/30/2016 Administered Prevnar (PCV20) Unknown 08/12/2022 Administered Shingrix Unknown 08/12/2022 Administered Shingrix Unknown 11/01/2022 Administered Tetanus Tdap-Adacel (over 7yrs) Unknown 07/30/2016 Admi nistered Tetanus Tdap-Adacel (over 7yrs) Unknown 07/25/2019 Admi nistered Tetanus Tdap-Adacel (over 7yrs) Unknown 04/13/2021 Admi nistered Tetanus Tdap-Adacel (over 7yrs) Unknown 12/11/2021 Admi nistered Problems Problem Type SNOMED Code ICD Code Onset Dates Problem Status W/U Status Risk Notes Problem Essential hypertension (58496420) Essential (primary) hypertension (I10) Active confirmed Problem Coronary arteriosclerosis (38437625) ASCVD (arteriosclerotic cardiovascular disease) (I25.10) Active confirmed Problem Vitamin D deficiency (80356151) Vitamin D deficiency (E55.9) Active confirmed Problem Vitamin B12 deficiency (205698670) Vitamin B12 deficiency (E53.8) Active confirmed Problem Essential hypertension (31438112) Essential hypertension (I10) Active confirmed Problem Hypertriglyceridemia (960499161) Hypertriglyceridemia (E78.1) Active confirmed Problem Acute non-ST segment elevation myocardial infarction (458157779) NSTEMI (non-ST elevated myocardial infarction) (I21.4) Active confirmed Problem Dyspepsia (749290359) Dyspepsia (K30) Active co nfirmed Problem Dysphagia (64325665) Dysphagia (R13.10) Active confirmed Problem Hypomagnesemia (887878208) Hypomagnesemia (E83.42) Active confirmed Problem Ischemic cardiomyopathy (419919523) Ischemic cardiomyopathy (I25.5) Active confirmed Problem Chronic rhinitis (27891725) Chronic rhinitis (J31.0) Active confirmed Problem Restless legs (56591645) Restless leg (G25.81) Active confirmed Problem Renal insufficiency (468620083) Renal insufficiency (N28.9) Active confirmed Problem Gastroesophageal reflux disease (disorder) (616432687) Chronic GERD (K21.9) Active confirmed Problem COPD - Chronic obstructive pulmonary disease (12295856) Chronic obstructive pulmonary disease, unspecified COPD type (J44.9) Active confirmed Problem Gastroesophageal reflux disease with esophagitis (disorder) (476988724) GERD with esophagitis (K21.0) Active confirmed Problem History of placement of stent for coronary artery disease (situation) (231357218) Status post coronary artery stent placement (Z95.5) Active confirmed Problem Obstructive sleep apnea syndrome (48559228) SMOOTH (obstructive sleep apnea) (G47.33) Active confirmed Problem Hyperlipidaemia (15335174) Hyperlipidemia, unspecified hyperlipidemia type (E78.5) Active confirmed Problem Esophageal spasm (62344541) Esophageal spasm (K22.4) Active confirmed Problem Atherosclerotic hear t disease of [place] coronary artery without angina pectoris (596978459424333) Atherosclerosis of [place] coronary artery without angina pectoris, unspecified whether [place] or transplanted heart (I25.10) Active confirmed Problem Atrophic gastritis (21563382) Chronic gastritis without bleeding, unspecified gastritis type (K29.50) Active confirmed Problem Esophageal dysmotility (270978201) Esophageal dysmotility (K22.4) Active confirmed Problem Oropharyngeal dysphagia (07018885) Oropharyngeal dysphagia (R13.12) Active confirmed Problem Hearing loss (35164597) Bilateral hearing loss, unspecified hearing loss type (H91.93) Active confirmed Problem Renal artery stenosi s (157817195) Renal artery stenosis (I70.1) Active confirmed Problem Gastroduodenitis (223703233) Gastritis without bleeding, unspecified chronicity, unspecified gastritis type (K29.70) Active confirmed Problem Gastroesophageal reflux disease (795209711) Gastroesophageal reflux disease, unspecified whether esophagitis present (K21.9) Active confirmed Problem Unstable angina co-occurrent and due to coronary arteriosclerosis (05037776388871119) Coronary artery disease involving [place] coronary artery of [place] heart with unstable angina pectoris (I25.110) Active confirmed Problem Chronic kidney disease stage 3A (disorder) (591284567) Stage 3a chronic kidney disease (CKD) (N18.31) Active confirmed Vital Signs Heart Rate 97 /min 10/25/2024 Blood pressure diastolic 68 mm Hg 10/25/2024 Height 68.75 in 10/25/2024 Blood pressure systolic 112 mm Hg 10/25/2024 Weight 133 lbs 10/25/2024 BMI 19.78 kg/m2 10/25/2024 Encounters Encounter Location Date Provider Diagnosis [facility] [address] [facility] [address] [id number] 11/23/2023 Shanda Crowdy Essential hypertensi on I10 ; Coronary artery disease involving [place] coronary artery of [place] heart with unstable angina pectoris I25.110 ; Chronic GERD K21.9 ; Dysphagia, unspecified type R13.10 ; Status post coronary artery stent placement Z95.5 ; Stage 3a chronic kidney disease (CKD) N18.31 ; Iron deficiency E61.1 ; Vitamin D deficiency E55.9 and Vitamin B12 deficiency E53.8 [facility] [address] [facility] [address] [place] [id number] 12/23/2023 Shanda Juniordy Essential hypertensi on I10 ; Stage 3a chronic kidney disease (CKD) N18.31 ; Iron deficiency E61.1 ; Dizziness R42 ; Elevated blood pressure reading R03.0 and Bilateral hearing loss, unspecified hearing loss type H91.93 [facility] [address] [place] [id number] 01/18/2024 Shanda Crowdy Renal insufficiency N28.9 [facility] [address] [place] [id number] 04/19/2024 Shanda Crowdy Nausea and vomiting in adult R11.2 ; Esophageal dysphagia R13.19 ; Esophageal spasm K22.4 and Gastritis without bleeding, unspecified chronicity, unspecified gastritis type K29.70 [facility] [address] [place], [place] [id number] 07/12/2024 Shanda Crowdy Esophageal dysmotili ty K22.4 ; Chronic gastritis without bleeding, unspecified gastritis type K29.50 ; Chronic GERD K21.9 and Weight loss R63.4 [facility] [address] [place] [id number] 07/30/2024 Elodia Patton Weight loss R63.4 ; Dysphagia R13.10 and Dyspepsia K30 [facility] [address] [place] [id number] 08/20/2024 Elodia Patton Oropharyngeal dyspha selwyn R13.12 ; Dysuria R30.0 and BMI 20.0-20.9, adult Z68.20 [facility] [address] [place] [id number] 10/25/2024 Shawn Elsie Chronic rhinitis J31 .0 ; Nausea R11.0 ; Weight loss R63.4 ; Renal insufficiency N28.9 and Restless leg G25.81 [facility] [address] [place], [place] [id number] 11/29/2023 Shanda Crowdy Iron deficiency E61. 1 [facility] [address] [place], [place] [id number] 01/12/2024 Shanda Crowdy Iron deficiency E61. 1 [facility] [address] [place], [place] [id number] 01/19/2024 Shanda Fu [facility] [address] [place], [place] [id number] 01/25/2024 Elodia Patton [facility] [address] [place] [id number] 04/20/2024 Shanda Fu [facility] [address] [place], [place] [id number] 04/25/2024 Shanda Fu [facility] [address] [place] [id number] 07/12/2024 Shanda Fu [facility] [address] [place] [id number] 10/23/2024 Elodia Patton [facility] [address] [place], [place] [id number] 10/26/2024 Shawn Mcgee [facility] [address] [place], [place] [id number] 11/05/2024 Elodia Patton Assessments Encounter Date Diagnosis (ICD Code) Assessment Notes Treatment Notes Treatment Clinical Notes Section Notes 11/23/2023 Essential hypertension (ICD-10 - I10) 11/23/2023 Coronary artery disease involving [place] coronary artery of [place] heart with unstable angina pectoris (ICD-10 - [...] Date Cardiac Stress Test Exercise Cardiolyte 01/12/2022 Next Appt Details Provider Name:Elodia Payne er, 11/19/2024 03:15:00 PM, [address], [address], [place], [place], [id number], Insurance Providers Payer Name Payer Address Payer Phone Subscriber Number Group Number Insured Name Patient Relationship to Insured Coverage Start Date Coverage End Date [employer] [address] [place] [address] [id number] МАРИНА HALL Self - patient is the [...] Date(Month/Year) C4-C5 Neck Fusion 2016 Neck- [facility] 12/31/2019 Hospitalization History Reason Date(Month/Year) M I 06/03/2023
[2024-11-15 14:29] LABS: Chloride 97 mmol/L (98-107); Sodium 133 mmol/L (136-145)
[2024-11-15 14:30] LABS: Potassium 3.5 mmoL/L (3.5-5.1)
[2024-11-15 14:33] LABS: Anion Gap 11.5 mEq/L (5-15); Blood Urea Nitrogen 7 mg/dl (9-20); Calcium 9.2 mg/dl (8.4-10.2); Carbon Dioxide 28 mmol/L (22.0-30.0); Creatinine,Serum 1.30 mg/dl (0.66-1.25); Estimated Glomerular Filt Rate 56 ml/min (>60); GFR (African American) 68 ML/MIN (>60); Glucose 87 mg/dl (74-100)
[2024-11-15 14:58] LABS: Hematocrit 30.1 % (42.0-52.0); Hemoglobin 9.7 g/dL (14.1-18.0); Immature Granulocytes % 0.4 %; Mean Corpuscular HGB Conc 32.2 g/dL (31.8-35.4); Mean Corpuscular Hemoglobin 28.1 pg (27.0-31.2); Mean Corpuscular Volume 87.2 fl (80-94); Nucleated Red Blood Cells % 0 %; Platelet Count 558 K/mm3 (142-424); Red Blood Count 3.45 M/mm3 (4.60-6.20); Red Cell Distribution Width-SD 43.0 fL; White Blood Count 7.9 K/mm3 (4.8-10.8)
== END 2024-11-15 23:59 | disposition home or self-care (01) ==
LOC: LAB 13:38
PROVIDERS: PCP Family Medicine; Visit Provider Internal Medicine
DX: Z48.812 Encounter for surgical aftercare following surgery on the circulatory system (principal); Z95.5 Presence of coronary angioplasty implant and graft
CPT/HCPCS: 36415; 80048; 85025

== ENCOUNTER 2024-11-22 08:10 | Outpatient (CLI) | payer BC, SELFPAY ==
--- OUTSIDE RECORDS SUMMARY | 2024-08-20 11:15 | XMS_ITS ---
Author Organization [facility] Address [facility] [address] [place] [phone] Care Team Providers Care Automobile Technician Name Role Phone Elodia Patton Primary Care Provider Allergies Allergen (clinical drug ingredient) Drug/Non Drug Allergy documented on EMR Reaction Allergy Type Onset Date Status hydroxyzine hydrOXYzine Unknown Drug Allergy Act alok Results Component Value Reference Range Notes Urinalysis - Inhouse Reviewed date:08/21/2024 12:48:50 PM Interpretation: Performing Lab: Notes/Report: Color/Clarity Clear Leuk Neg Nitrite Neg Urobili 3.2 Protein Neg pH 7.0 Blood Neg Sp. Gr. 1.010 Ketone Neg Bili Neg Gluc Neg Modified barium swallow Reviewed date:10/23/2024 03:27:37 PM Interpretation: Performing Lab: Notes/Report: Modified barium swallow Reviewed date:10/23/2024 03:27:37 PM Interpretation: Performing Lab: Notes/Report: Modified barium swallow Reviewed date:10/23/2024 03:27:37 PM Interpretation: Performing Lab: Notes/Report: REASON FOR VISIT 3 Week Follow Up Medications Medication SIG (Take, Route, Frequency, Duration) Notes Start Date End Date Status Metoclopramide HCl 5 MG 1 tablet before meals Orally three times a day as needed; Duration: 30 days 08/20/2024 Active Isosorbide Mononitrate ER 60 MG 1 tablet in the morning Orally Once a day Not-Taking amLODIPine Besylate 5 MG 1 tablet Orally Once a day; Duration: 90 days Active Librax 5-2.5 MG 1 capsule before cortney ls Orally Three times a day; Duration: 30 days 07/30/2024 Active Sucralfate 1 GM 2 Orally Twice a day ; Duration: 30 days 07/30/2024 Active Iberogast - as directed Orally Not-Taking Nitroglycerin 0.4 MG 1 tab(s) sublingual ly every 5 minutes Active Metoprolol Succinate ER 50 MG 1/2 tab Active Plavix 75 MG 1 tablet Orally Once a day; Duration: 30 day(s) Active Irbesartan 150 MG 1 tablet Orally Once a day; Duration: 30 day(s) Active Align - as directed Orally N ot-Taking Voquezna 20 MG 1 tablet Orally Once a day; Duration: 30 day(s) Not-Taking Pantoprazole Sodium 40 MG 1 tablet Orall y Once a day Active Problems Problem Type SNOMED Code ICD Code Onset Dates Problem Status W/U Status Risk Notes Problem Oropharyngeal dysphagia (17530429) Oropharyngeal dysphagia (R13.12) Active confirmed Vital Signs Weight 140.4 lbs 08/20/2024 Blood pressure systolic 140 mm Hg 08/21/19 25 Blood pressure diastolic 70 mm Hg 025 Heart Rate 66 /min 08/20/2024 Height 68.75 in 08/20/2024 BMI 20.88 kg/m2 08/20/2024 Encounters Encounter Location Date Provider Diagnosis [facility] [address] [facility] [address] [place] [id number] 08/20/2024 Elodia Patton Oropharyngeal dyspha selwyn R13.12 ; Dysuria R30.0 and BMI 20.0-20.9, adult Z68.20 Assessments Encounter Date Diagnosis (ICD Code) Assessment Notes Treatment Notes Treatment Clinical Notes Section Notes 08/20/2024 Oropharyngeal dysphagia (ICD-10 - R13.12) 08/20/2024 Dysuria (ICD-10 - R30.0) 08/20/2024 BMI 20.0-20.9, adult (ICD-10 - Z68.20) Plan Of Treatment Medication Medication Name Sig Start Date Stop Date Notes Metoclopramide HCl 5 MG 1 tablet before meals Orally three times a day as needed; Duration: 30 days 08/20/2024 Next Appt Details Follow Up: 4 Weeks, Reason: Provider Name:Elodia Payne er, 12/17/2024 03:30:00 PM, [address] [facility], [address], [place], [phone], Progress Notes * KARINA HALL: [birth year] (59 yo M)Acc No.[id number]:08/20/2024 Progress Notes Patient: МАРИНА WALKER Provider: Elodia Patton M.D. :1965 A ge:58 Y S ex:Male Date:08/20/2024 Address:[address] [place] [address] [id number] Subjective: * Chief Complaints: * 1 . 3 Week Follow Up. * HPI: G astroenterology: The patient is here for a follow up on Acid reflux and Dysphagia. Pt states he is doing about the same. Pt states will sometimes vomiting and it is nothing but bile. Pt states sometimes it feels like his food gets stuck and he can't swallow it down and other times it goes down the wrong way and he gets choked. See 06/07/[address] Vinson which contains detail about his evaluations. 58 year old male presents with c/o Dysphagia. c/o Acid Reflux. c/o Vomiting. * ROS: D ERMATOLOGY: no R ceci. n o H ria. G ASTROENTEROLOGY: no N ausea. n o V omiting. n o D iarrhea.? U ROLOGY: no D ifficulty urinating. n o B lood in urine. * Medical History: M I 06/03/2023. * Surgical History: C 4-C5 Neck Fusion 2015, [facility]- [facility] [employer] 12/31/2019. * Hospitalization/Major Diagno stic Procedure: M [...] arital Status: Single. * Medications: T aking Pantoprazole Sodium 40 MG Tablet Delayed Release 1 tablet Orally Once a day , Taking Irbesartan 150 MG Tablet 1 tablet Orally Once a day , Taking Plavix 75 MG Tablet 1 tablet Orally Once a day , Taking Metoprolol Succinate ER 50 MG Tablet Extended Release 24 Hour 1/2 tab , Taking Nitroglycerin 0.4 MG Tablet Sublingual 1 tab(s) sublingually every 5 minutes , Taking Sucralfate 1 GM Tablet 2 Orally Twice a day , Taking Librax 5-2.5 MG Capsule 1 capsule before meals Orally Three times a day , Taking amLODIPine Besylate 5 MG Tablet 1 tablet Orally Once a day , Not-Taking Voquezna 20 MG Tablet 1 tablet Orally Once a day , Not-Taking Align - Capsule as directed Orally , Not-Taking Iberogast - Capsule as directed Orally , Not-Taking Isosorbide Mononitrate ER 60 MG Tablet Extended Release 24 Hour 1 tablet in the morning Orally Once a day , Medication List reviewed and reconciled with the patient * Allergies: h ydrOXYzine: Side Effects. Objective: * Vitals: W t:140.4, Temp:98.1, BP:140/70, HR:66, Nurse:KAROLINA, Ht: 68.75, BMI:20.88. * Examination: G eneral Examination: General Appearance: [...] o leg edema. Assessment: * Assessment: 1. O ropharyngeal dysphagia - R13.12 (Primary) 2 . D ysuria - R30.0 ? 3 . B NH 20.0-20.9, adult - Z68.20 Plan: * Treatment: 2.?Dysuria?LAB: Urinalysis - Inhouse (Collection Date & Time - 08/20/2024)* Value Reference Range C olor/Clarity Clear * L euk Neg * N itrite Neg * U robili 3.2 * P rotein Neg * p H 7.0 * B lood Neg * S p. Gr. 1.010 * K etone Neg * B aggie Neg * G kush Neg * Tiff No 08/20/2024 4:51:58 PM > * Procedure Codes: 8 1002 Urinalysis, no micro, 3077F SYST BP = 140 MM HG6 IT, 3078F DIAST BP < 80 MM HG * Follow Up: 4 Weeks * Images: Billing Information: * Visit Code: 16280 Office Visit, Est Pt., Level 3. * Procedure Codes: 44212 Urinalysis, no micro. 3077F SYST BP = 140 MM HG6 IT. 3078F DIAST BP < 80 MM HG. * Electronic signature of Elodia Patton MD on 11/22/2024 at 08:13 AM EDT Sign off status: Pending * Provider: Elodia Patton M.D. Date: 0 08/20/2024 Generated for Lorai ng/Andreasg/eTransmitting on: 0 11/22/2024 08:13 AM EDT History and Physical Notes * HPI (History of Present Illness) Category Sub-Category Detail Notes Category Not es Gastroenterology Vomiting Dysphagia Acid Reflux Examination Category Sub-Category Detail Notes Category Not [...]
--- OUTSIDE RECORDS SUMMARY | 2024-10-25 06:00 | XMS_ITS ---
Author Organization [facility] Address [address] [facility] [address] [facility] [address] [place] [id number] Care Team Providers Care Vamp Wetter Name Role Phone Elodia Patton Primary Care Provider [phone] Shawn Mcgee Unavailable [phone] Allergies Allergen (clinical drug ingredient) Drug/Non Drug [...] Interpretation:191 Performing Lab: Notes/Report: Test performed by [facility] [address] [place] [address] , [address], [place] [address] Marcus Gunderson MD, Liaison Planner CLIA: [id number] Amylase 191 28-100 U/L P-Comprehensive Metabolic Pa quita (CMP) Reviewed date:10/26/2024 10:54:13 AM Interpretation:Na 132, Chl 93, Creat 1.72, Parmjit 10.8, eGFR 45 Performing Lab: Notes/Report: Test performed by [facility] [address] [place] [address] Natanael Connors, [address], [place] [address] Marcus Gundersno MD, Liaison Planner CLIA: [id number] Sodium 132 135-145 mmol/L Potassium 4.6 3.5-5.3 [...] 0.3 <0.2-1.2 mg/dL A/G Ratio 2.0 1.1-2.5 Q-X-Feuwpzht Protein (CRP) Reviewed date:10/26/2024 10:54:13 AM Interpretation:Normal Performing Lab: Notes/Report: Test performed by [facility] [address] [place] [address] , [place] [address] Marcus Gunderson MD, Liaison Planner CLIA: [id number] C-Reactive Protein (CRP) 0.26 <0.50 mg/dL P-Sed Rate (ESR) Reviewed date:10/26/2024 10:54:13 AM Interpretation:Normal Performing Lab: Notes/Report: Test performed by [employer] [facility] [address] [place] [address] , [facility] [address], [place] [address] Marcus Gunderson MD, Liaison Planner CLIA: [id number] Erythrocyte Sedimentation Rate (ESR), Automated 5 <21 mm/hr P-Lipase Reviewed date:10/26/2024 10:54:13 AM Interpretation:154.1 Performing Lab: Notes/Report: Test performed by [facility] [address] [place] [address] , [address], [place] [address] Marcus Gunderson MD, Liaison Planner CLIA: [id number] Lipase 154.1 13.0-60.0 u/L P-TSH reflex to FT4 Reviewed date:10/26/2024 10:54:13 AM Interpretation:Normal Performing Lab: Notes/Report: Test performed by [facility] [facility] [address] [place] [address] , [address], [place] [address] Marcus Gunderson MD, Liaison Planner CLIA: [id number] TSH reflex to FT4 1.88 0.43-5.25 mU/L [...] W/U Status Risk Notes Problem Chronic rhinitis (J31.0) Active confirmed Vital Signs Weight 133 lbs 10/25/2024 Blood pressure systolic 112 mm Hg 10/26/19 25 Blood pressure diastolic 68 mm Hg 025 Heart Rate 97 /min 10/25/2024 Height 68.75 in 10/25/2024 BMI 19.78 kg/m2 10/25/2024 Encounters Encounter Location Date Provider Diagnosis [facility] [address] [facility] [address] [facility] [address] [place] [id number] 10/25/2024 Shawn Mcgee Chronic rhinitis J31 .0 [...] Up: 5 Weeks, Reason: Provider Name:Elodia Payne er, 12/17/2024 03:30:00 PM, [address] [facility] [address] [facility], [address], [place], [id number], Progress Notes * МАРИНА HALLDOB: [birth year] (59 yo M)Acc No.[id number]:10/25/2024 Progress Notes Patient: МАРИНА WALKER Provider: Ekaterina Mcgee M.D. :1965 A ge:59 Y S ex:Male Date:10/25/2024 Address:[address] [address] Judd Irby [id number] Pcp:Elodia Patton Subjective: * Chief Complaints: * [...] in urine. * Medical History: M I 06/03/2023, with PCI and 1 stent placed, then 4 stents placed 2 weeks later, Coronary Artery Disease, Esophageal reflux, Restless Leg Syndrome, Renal Insufficiency, Hyperlipidemia, Hypertriglyceridemia. * Surgical History: C 4-C5 Neck Fusion 2015, Neck- [facility] [employer] 12/31/2019. * Hospitalization/Major Diagno stic Procedure: M [...] EDT > See phone encounter 3.?Weight loss?LAB: C-Z-Eewifyet Protein (CRP) (Collection Date & Time - [...] * Images: Billing Information: * Visit Code: 88463 Office Visit, Est Pt., Level 4. * Procedure Codes: 04923 CBC WITH AUTO DIFF. G8783 BP SCR PRFRM RCMDD DEFIND SCR INTVL. G8752 MOST RECENT SYSTOLIC BP < 140MM HG. G8754 MOST RECENT DIASTOLIC BP < 90MM HG. * Electronic signature of Nika Mcgee MD on 11/22/2024 at 08:12 AM EDT Sign off status: Pending * Provider: Ekaterina Mcgee M.D. Date: 0 10/25/2024 Generated for Jacinto mendieta/Lucie/Johanny on: 0 11/22/2024 08:12 AM EDT History and Physical Notes * [...]
--- OUTSIDE RECORDS SUMMARY | 2024-11-19 11:15 | XMS_ITS ---
Author Organization [facility] Address [facility] [address] [place] [id number] Care Team Providers Care Feed Elevator Worker Name Role Phone Elodia Patton Primary Care Provider [phone] Allergies Allergen (clinical drug ingredient) Drug/Non Drug Allergy documented on EMR Reaction Allergy Type Onset Date Status hydroxyzine hydrOXYzine Unknown Drug Allergy Act alok REASON FOR VISIT [facility] F/U Medications Medication SIG (Take, Route, Frequency, Duration) Notes Start Date End Date Status Metoclopramide HCl 5 MG 1 tablet before meals Orally three times a day as needed; Duration: 30 days 08/20/2024 Active Voquezna 20 MG 1 tablet Orally Once a day; Duration: 30 day(s) Not-Taking Align - as directed Orally N ot-Taking Iberogast - as directed Orally Not-Taking Isosorbide Mononitrate ER 60 MG 1 tablet in the morning Orally Once a day Not-Taking Metoprolol Succinate ER 50 MG 1/2 tab Not-Taking Sucralfate 1 GM 2 Orally Twice a day ; Duration: 30 days 07/30/2024 Not-Taking Librax 5-2.5 MG 1 capsule before cortney ls Orally Three times a day; Duration: 30 days 07/30/2024 Not-Takin g amLODIPine Besylate 5 MG 1 tablet Orally Once a day; Duration: 90 days Not-Takin g Pantoprazole Sodium 40 MG 1 tablet Orall y Once a day Not-Taking Plavix 75 MG 1 tablet Orally Once a day; Duration: 30 day(s) Active Nitroglycerin 0.4 MG 1 tab(s) sublingual ly every 5 minutes Active Pramipexole Dihydrochloride 0.125 MG 1 tablet Orally Once a day; Duration: 90 days 10/25/2024 Active Irbesartan 150 MG 1 tablet Orally Once a day; Duration: 30 day(s) Active Esomeprazole Magnesium 40 MG 1 capsule 1/2 to 1 hour before morning meal Orally Once a day Active Ferrous Sulfate 325 (65 Fe) MG 1 tablet Orally twice a day Active Sucralfate 1 GM/10ML 10 mL Orally 3 time s a day Active Atorvastatin Calcium 40 MG 1 tablet Oral ly Once a day Active Problems Problem Type SNOMED Code ICD Code Onset Dates Problem Status W/U Status Risk Notes Problem Carotid stenosis, bilateral (I65.23) Active confirmed Vital Signs Weight 135.2 lbs 11/19/2024 Blood pressure systolic 140 mm Hg 11/20/19 25 Blood pressure diastolic 74 mm Hg 025 Heart Rate 79 /min 11/19/2024 Height 68.75 in 11/19/2024 BMI 20.11 kg/m2 11/19/2024 Encounters Encounter Location Date Provider Diagnosis [facility] [address], [place] [id number] 11/19/2024 Elodia Patton Esophageal dysphagia R13.19 ; ASCVD (arteriosclerotic cardiovascular disease) I25.10 ; Atherosclerosis of [place] coronary artery without angina pectoris, unspecified whether [place] or transplanted heart I25.10 ; Status post coronary artery stent placement Z95.5 ; Gastritis without bleeding, unspecified chronicity, unspecified gastritis type K29.70 ; Hypomagnesemia E83.42 and Carotid stenosis, bilateral I65.23 Assessments Encounter Date Diagnosis (ICD Code) Assessment Notes Treatment Notes Treatment Clinical Notes Section Notes 11/19/2024 Esophageal dysphagia (ICD-10 - R13.19) 11/19/2024 ASCVD (arteriosclerotic cardiovascular disease) (ICD-10 - I25.10) 11/19/2024 Atherosclerosis of [place] coronary artery without angina pectoris, unspecified whether [place] or transplanted heart (ICD-10 - I25.10) 11/19/2024 Status post coronary artery stent placement (ICD-10 - Z95.5) 11/19/2024 Gastritis without bleeding, unspecified chronicity, unspecified gastritis type (ICD-10 - K29.70) 11/19/2024 Hypomagnesemia (ICD-10 - E83.42) 11/19/2024 Carotid stenosis, bilateral (ICD-10 - I65.23) Plan Of Treatment Pending Test Test Name Order Date Carotid Duplex 11/19/2024 Next Appt Details Follow Up: 4 Weeks, Reason: Provider Name:Elodia Payne er, 12/17/2024 03:30:00 PM, [address], [address], [place], [id number], Progress Notes * МАРИНА HALLDOB: [birth year] (59 yo M)Acc No.[id number]:11/19/2024 Progress Notes Patient: МАРИНА WALKER Provider: Elodia aPtton M.D. :1965 A ge:59 Y S ex:Male Date:11/19/2024 Address:[address] [place] Subjective: * Chief Complaints: * 1 . [facility] F/U. * HPI: H PI: 59 year old male presents with c/o Here for follow up on: h ospitalization. Pt states he had one stent placed and also had GI bleed due to ulcer. Pt states he is doing some better. Pt states he is eating better. Pt states he does have some occasional mild chest pain and shortness of breath. * ROS: D ERMATOLOGY: no R ceci. [...] arital Status: Single. * Medications: T aking Esomeprazole Magnesium 40 MG Capsule Delayed Release 1 capsule 1/2 to 1 hour before morning meal Orally Once a day , Taking Ferrous Sulfate 325 (65 Fe) MG Tablet 1 tablet Orally twice a day , Taking Sucralfate 1 GM/10ML Suspension 10 mL Orally 3 times a day , Taking Atorvastatin Calcium 40 MG Tablet 1 tablet Orally Once a day , Taking Irbesartan 150 MG Tablet 1 tablet Orally Once a day , Taking Plavix 75 MG Tablet 1 tablet Orally Once a day , Taking Nitroglycerin 0.4 MG Tablet Sublingual 1 tab(s) sublingually every 5 minutes , Taking Pramipexole Dihydrochloride 0.125 MG Tablet 1 tablet Orally Once a day , Taking Metoclopramide HCl 5 MG Tablet 1 tablet before meals Orally three times a day as needed , Not-Taking Pantoprazole Sodium 40 MG Tablet [...] the morning Orally Once a day , Discontinued Dymista 137-50 MCG/ACT Suspension 1 spray in each nostril Nasally Twice a day , Discontinued dexAMETHasone 2 MG Tablet 1 tablet Orally twice a day , Medication List reviewed and reconciled with the patient * Allergies: h ydrOXYzine: Side Effects. Objective: * Vitals: W t: 135.2, Temp: 98.2, BP: 140/74, HR: 79, O2 Sat: 99% on RA, Nurse: KAROLINA, Ht: 68.75, BMI:20.11. * Examination: G eneral Examination: General Appearance: N AD. H EENT: b ilateral carotid bruits. O ral cavity: n o lesions, mucosa moist and WNL, no erythema. N consuelo: s upple, no lymphadenopathy. C hest: n ormal shape and expansion. H eart: R SR. L ungs: c lear to auscultation. A bdomen: s oft and nontender, no organomegaly or masses.?Neurologic Exam: I ntact, gait normal. S kin: n ormal, no rash. P eripheral pulses: n ormal . E xtremities: n o leg edema. Assessment: * Assessment: 1. E sophageal dysphagia - R13.19 (Primary) 2 . A SCVD (arteriosclerotic cardiovascular disease) - I25.10 3 . A therosclerosis of [place] coronary artery without angina pectoris, unspecified whether [place] or transplanted heart - I25.10 4 . Status post coronary artery stent placement - Z95.5 5 . G astritis without bleeding, unspecified chronicity, unspecified gastritis type - K29.70 6 . H ypomagnesemia - E83.42 7 . C arotid stenosis, bilateral - I65.23 Plan: * Treatment: * Follow Up: 4 Weeks * Images: Billing Information: * Visit Code: * Procedure Codes: * Electronic signature of Elodia Patton MD on 11/22/2024 at 08:12 AM EDT Sign off status: Pending * Provider: Elodia Patton M.D. Date: 11/19/2024 Generated for Jacinto mendieta/Lucie/eTransmitting on: 11/22/2024 08:12 AM EDT History and Physical Notes * HPI (History of Present Illness) Category Sub-Category Detail Notes Category Not es HPI Here for follow up on: bebetoi franchesca. Pt states he had one stent placed and also had GI bleed due to ulcer. Pt states he is doing some better. Pt states he is eating better. Pt states he does have some occasional mild chest pain and shortness of breath Examination Category Sub-Category Detail Notes Category Not es General Examination HEENT: bilateral carotid bru its Heart: RSR Lungs: clear to auscultatio n Abdomen: soft and nontender, no organomegaly or masses Extremities: no leg edema General Appearance: NAD Skin: normal, no rash Neurologic Exam: Intact, gait normal Neck: supple, no lymphaden opathy Oral cavity: no lesions, mucosa m oist and WNL, no erythema Peripheral pulses: normal Chest: normal shape and exp ansion
--- NOTE | 2024-11-22 | CA_ITS ---
FINAL REPORT CLINICAL HISTORY: HTN, HLD, Smoker, multiple cardiac stents, renal stent FINDINGS: The peak systolic velocity of the right common carotid artery is 98 cm/s. The peak systolic velocity of the right internal carotid artery is 105 cm/s and end diastolic velocity 37 cm/s. The ICA/CCA ratio is 1.2. A small amount of plaque is present. The right external carotid artery is patent. The right vertebral artery is patent with antegrade flow. The peak systolic velocity of the left common carotid artery is 73 cm/s. The peak systolic velocity of the left internal carotid artery is 385 cm/s and end diastolic velocity 127 cm/s. The ICA/CCA ratio is 5.3. A significant amount of plaque is present. The left external carotid artery is patent.The left vertebral artery is patent with antegrade flow. IMPRESSION: Less than 50% carotid stenoses on the right. 70 to 99% carotid stenosis on the left. CTA would be of value. Reviewed, Interpreted and Dictated by John Hayes MD Transcribed by Freda Sparks Authenticated and [facility]
--- OUTSIDE RECORDS SUMMARY | 2024-11-22 08:12 | XMS_ITS | Encounter Summary ---
Author Organization [employer] ([place]) Address [address] [place] [address] Care Team Providers Care Silk Spooler Name Role Phone Stanislaw Martinez MD Primary Care Provider [phone] Encounter Details Date Type Department Care Team (Late st Contact Info) Description 12/30/2020 Transcribed Document [facility] [place] [facility] [place] [address] ProviderLucy MD [address] [place] [address] Social History Tobacco Use Types Packs/Day Years Used Date Smoking Tobacco: Never Assessed Sex and Gender Information Value Date Recorded Sex Assigned at Not on file Legal Sex Male 5:20 PM CDT Gender Identity Not on file Sexual Orientation Not on file documented as of this encounter Miscellaneous Notes * Cerner Conversion Note - Lcuy Scott MD - 12/30/2020 7:07 PM CDT [facility] [place] [address] [place] [place] [address] МАРИНА HALL :1965 Visit Time:12/30/2020 Your Visit Summary Your Care Team Admitting Physician - DEBBY ROMERO MD-CAR Attending Physician - DEBBY ROMERO MD-CAR Primary Care Physician - STANISLAW MARTINEZ MD-[facility] Referring Physician - DEBBY ROMERO MD-CAR [...] Comments Call for follow up appointment Where: [address] [place] [address] [address] [place] [id number]- Medications What How Much When Instructions Next [...] cause a heart attack (myocardial infarction or [place]). This condition may also be called coronary [...] these instructions at home: Medicines ??? Take xzmu-pqs-suullrc and prescription medicines only as told by [...] provider. Document Revised: 01/19/2019 Document Reviewed: 01/09/2019 [employer] Patient Education ?? 2020 [employer]. What you need to know about coronavirus disease 2019 (COVID-19) Missing Image - the embedded image is not supported https://www.cdc.gov/coronavirus/2019-ncov/ HYPERLINK https://www.cdc.gov/coronavirus/2019-ncov/cases-in-us.html cases-in-us.html. How does COVID-19 spread? The virus that causes COVID-19 probably emerged from an animal source, but now it seems to be spreading from person to person. It???s important to note that kyjuqu-on-cxuolv spread can happen on a continuum. Some [...] least 20 seconds. Use an alcohol-based hand shipsmith that contains at least 60% alcohol if [...] you are awake and alert. ??? Take ikjr-xhb-muskioz and prescription medicines only as told by [...] provider. Document Revised: 04/14/2018 Document Reviewed: 08/21/2016 [employer] Patient Education ?? 2020 [employer]. Transradial Angiogram A transradial angiogram is an [...] including vitamins, herbs, eye drops, creams, and qkdz-toq-vfsnikr medicines. ??? Any problems you or family [...] tells you to take them. ??? Taking kgdr-vvh-yfitryf medicines, vitamins, herbs, and supplements. Exams and [...] provider. Document Revised: 03/26/2019 Document Reviewed: 03/26/2019 [employer] Patient Education ?? 2020 [employer] Radial Site Care This sheet gives [...] these instructions at home: Medicines ??? Take rlbx-ljh-tskcnja and prescription medicines only as told by your health care provider. Insertion site care ??? Follow instructions from your health care provider about how to take care of your insertion site. Make sure you: ? Wash your hands with soap and water before you change your bandage (dressing). If soap and water are not available, use hand shipsmith. ? Change your dressing as told by [...] Reviewed: 06/07/2018 Elsevier Patient Education ?? 2020 [employer] Emergency Awareness and Preventative Care STROKE is an EMERGENCY Every Minute Counts Act FAST and Check for these signs: FACE Does the face look uneven? ARM Does one arm drift down? SPEECH Does their speech sound strange? TIME Call at any sign of stroke Stroke Risk [...] Assistance with quitting is available by contacting 3-076-MYMQNOW. This is a free resource providing counseling, support, and referral. Or you may contact your personal physician. [employer] Suicide Prevention Lifeline: The National Suicide Prevention [...] was given the opportunity to ask questions. Patient/Canteen Manager Name: Patient/Canteen Manager Signature: Relationship to Patient: Clinician/Hospital Canteen Manager Signature: Date: Electronically signed by Interface, [facility] Conversion Substation Operator Transforming Cerner at 08/31/2022 10:54 PM CDT documented in this encounter Plan of Treatment Not on file documented as of this encounter Visit Diagnoses Not on filedocumented in this encounter Care Teams Silk Spooler Relationship Specialty Start Date End Date Stanislaw Martinez MD [address] [place] [address] PCP - General Family Medicine 06/03/23 documented as of this encounter
--- OUTSIDE RECORDS SUMMARY | 2024-11-22 08:12 | XMS_ITS | Encounter Summary ---
Author Organization [employer] ([place], [place], [place], [place]) Address [address] [place] [address] Care Team Providers Care Ceramics Instructor Name Role Phone Carl Patton MD Primary Care Provider [phone] Encounter Details Date Type Department Care Team (Late st Contact Info) Description 12/30/[address] [facility] [place] Family Medicine [address] [place] [address] ProviderLucy MD [address] [place] [address] Social History Tobacco Use Types Packs/Day Years Used Date Smoking Tobacco: Never Assessed Sex and Gender Information Value Date Recorded Sex Assigned at Not on file Legal Sex Male 5:20 PM CDT Gender Identity Not on file Sexual Orientation Not on file documented as of this encounter Miscellaneous Notes * Cerner Conversion Note - Historical ProviderMD - 12/30/2020 7:09 PM CDT [facility] [place] [address] Visit Date/Time: 12/30/2020 19:09:58 МАРИНА HALL The above patient was seen in the hospital today and needs to be excused from work/school until Return to Work/School Date: 01/05/2021 Electronically signed by Charlene [facility] Conversion Drafter (Cad) Electronic Cerner at 08/31/2022 10:41 PM CDT documented in this encounter Plan of Treatment Not on file documented as of this encounter Visit Diagnoses Not on filedocumented in this encounter Care Teams Ceramics Instructor Relationship Specialty Start Date End Date Carl Patton MD [address] [place] [address] PCP - General Family Medicine 06/03/23 documented as of this encounter
--- OUTSIDE RECORDS SUMMARY | 2024-11-22 08:12 | XMS_ITS | Encounter Summary ---
Author Organization [employer] ([place], [place], [place], [place]) Address [address] [place] [address] Care Team Providers Care Card Runner Name Role Phone Carl Patton MD Primary Care Provider [phone] Encounter Details Date Type Department Care Team (Late st Contact Info) Description 12/30/2020 Transcribed Document [facility] [place] [facility] [place] [address] ProviderLucy MD [address] [place] [id number] Social History Tobacco Use Types Packs/Day Years [...] Patient Referral Reason Comment : Advance directive Diabetes Trainer Services Provided : Yes Diabetes Trainer Services Provided Comment : Living will Ministry Provided to : Patient, Family/Significant other Alevism Preference : Other: No JACK ALFARO 12/30/2020 [...] Family/Significant other supported, Information provided Spiritual and Alevism : Spiritual/Alevism support provided JACK ALFARO 12/30/2020 12:50 EDT documented in this encounter Plan of Treatment Not on file documented as of this encounter Visit Diagnoses Not on filedocumented in this encounter Care Teams Card Runner Relationship Specialty Start Date End Date Carl Patton MD [address] [place] [address] PCP - General Family Medicine 06/03/23 documented as of this encounter
--- OUTSIDE RECORDS SUMMARY | 2024-11-22 08:12 | XMS_ITS | Encounter Summary ---
Author Organization [employer] ([place], [place], [place], [place]) Address [address] [place] [address] Care Team Providers Care Beef Cattle Grazier Name Role Phone Carl Patton MD Primary Care Provider [phone] Encounter Details Date Type Department Care Team (Late st Contact Info) Description 12/30/2020 Transcribed Document [facility] [place] [facility] [place] [address] ProviderLucy MD [address] [place] [address] Social History Tobacco Use Types Packs/Day [...] - 12/30/2020 12:48 EDT Electronically signed by Charlene [facility] Conversion Drafter Detail Cerner at 08/31/2022 10:43 PM CDT documented in this encounter Plan of Treatment Not on file documented as of this encounter Visit Diagnoses Not on filedocumented in this encounter Care Teams Beef Cattle Grazier Relationship Specialty Start Date End Date Carl Patton MD [address] [place] [address] PCP - General Family Medicine 06/03/23 documented as of this encounter
--- OUTSIDE RECORDS SUMMARY | 2024-11-22 08:12 | XMS_ITS | Encounter Summary ---
Author Organization [employer] ([place], [place], [place], [place]) Address [address] [place] [address] Care Team Providers Care Clinical Staff Educator Name Role Phone Carl aPtton MD Primary Care Provider [phone] Encounter Details Date Type Department Care Team (Late st Contact Info) Description 12/30/2020 Transcribed Document [facility] [place] [address] ProviderLucy MD [address] [place] [address] Social History Tobacco Use Types Packs/Day Years Used Date Smoking Tobacco: Never Assessed Sex and Gender Information Value Date Recorded Sex Assigned at Not on file Legal Sex Male 5:20 PM CDT Gender Identity Not on file Sexual Orientation Not on file documented as of this encounter Miscellaneous Notes * [employer] Conversion Note - Historical ProviderMD - 12/30/2020 9:06 AM CDT Pre Procedure Adult Entered On: 12/30/2020 9:12 EDT Performed On: 12/30/2020 9:06 EDT by COLLIN AVERY RN Height and Weight, Clinical Dosing Height Source : Measured Height Entry Format : [place] Height, Feet : 5 ft(Converted to: 152 cm, 60 Inch) Height, Inches : 8 Inch(Converted to: 0 ft 8 Inch, 20.32 cm) Clinical Height : 172.72 cm Weight Source : Standing scale Weight Entry Format : [place] Clinical Dosing Weight : 75 kg Weight, Pounds : 165 lb Weight, Ounces : 0 oz Body Surface Area (BSA) : 1.89 m2 Body Mass Index : 25.1 kg/m2 (HI) [place] Body Weight : 67 kg COLLIN AVERY [...] (Last Updated: 09/05/2014 07:36:20 EDT by NEERAJ HAYWARD, FROYLAN) Alcohol Use History Yes. Days/Week: 1. # [...] (Last Updated: 08/15/2015 02:03:46 EDT by Zahra Low, FROYLAN) Home/Environment: Lives with Significant other. Living situation: [...] COLLIN AVERY RN - 12/30/2020 9:06 EDT [place] Suicide Severity Rating Scale (C-SSRS) CSSRS Past [...] Info Legal Guardian : No Support Person/Patient Electric Relay Tester : No Want Family/Rep/Phys Notified of Admit : No Emergency Contact #1 : [place] Emergency Contact #1 Emergency Contact #1 Relationship : girlfriend Emergency Contact #2 : x Emergency Contact #2 Phone Number : x Emergency Contact #2 Relationship : x Primary Language : Liberian Preferred Communication Mode : Verbal Communication Barrier : None Product Architect Needed : No COLLIN AVERY RN - 12/30/2020 9:06 EDT Sleep Apnea [...] ABCs Fall Injury Risk Identification : None LE Hx Falls Immediate/Within 3 Months : No Le Secondary Diagnosis : No LE Use of Ambulatory Aid : Bed rest/Nurse assist LE IV Therapy or IV Access : Yes Le Gait/Transferring : Normal, bedrest, immobile Le Mental Status : Oriented to own ability Le Fall Risk Score : 20 LE Fall Scale Risk Level : 0-24 Low Risk [place] Fall Interventions : Adequate lighting, Assistive devices [...] filedocumented in this encounter Care Teams Clinical Staff Educator Relationship Specialty Start Date End Date Carl Patton MD [address] [place] [address] PCP - General Family Medicine 06/03/23 documented as of this encounter
--- OUTSIDE RECORDS SUMMARY | 2024-11-22 08:12 | XMS_ITS | Encounter Summary ---
Author Organization [employer] ([place], [place], [place], [place]) Address [address] [place] [address] Care Team Providers Care General Handling Supervisor Name Role Phone Carl Patton MD Primary Care Provider [phone] Encounter Details Date Type Department Care Team (Late st Contact Info) Description 12/30/2020 Transcribed Document [facility] [place] [address] [place] [address] ProviderLucy MD [address] [place] [address] [id number] Social History Tobacco Use Types Packs/Day Years Used Date Smoking Tobacco: Never Assessed Sex and Gender Information Value Date Recorded Sex Assigned at Not on file Legal Sex Male 5:20 PM CDT Gender Identity Not on file Sexual Orientation Not on file documented as of this encounter Miscellaneous Notes * [employer] Conversion Note - Lucy ProviderMD - 12/30/2020 7:05 PM CDT Stroke/Warfarin Instructions Entered On: 12/30/2020 19:06 EDT Performed On: 12/30/2020 19:05 EDT by ANTONIO VICTOR RN Stroke/Warfarin Instructions Stroke/TIA Discharge Ins : N/A Warfarin Discharge Ins : N/A ANTONIO VICTOR RN - 12/30/2020 19:05 EDT documented in this encounter Plan of Treatment Not on file documented as of this encounter Visit Diagnoses Not on filedocumented in this encounter Care Teams General Handling Supervisor Relationship Specialty Start Date End Date Carl Patton MD [address] [place] [address] PCP - General Family Medicine 06/03/23 documented as of this encounter
--- OUTSIDE RECORDS SUMMARY | 2024-11-22 08:12 | XMS_ITS | Encounter Summary ---
Author Organization [employer] ([place], [place], [place], [place]) Address [address] [place] [address] Care Team Providers Care Lawn Mower Mechanic Name Role Phone Carl Patton MD Primary Care Provider [phone] Encounter Details Date Type Department Care Team (Late st Contact Info) Description 12/30/2020 Transcribed Document [facility] [place] [facility] [place] [address] ProviderLucy MD [address] [place] [id number] Social History Tobacco Use Types Packs/Day Years [...] On: 12/30/2020 19:13 EDT by ANTONIO VICTOR, information technology administrator Documentation Discharge Date/Time : 12/30/2020 19:20 EDT [...] Printed materials Teaching Evaluation : Verbalizes understanding ANTONIO VICTOR, FROYLAN - 12/30/2020 19:13 EDT Electronically signed by Charlene [facility] Conversion Systems Program Manager Cerner at 08/31/2022 10:42 PM CDT documented in this encounter Plan of Treatment Not on file documented as of this encounter Visit Diagnoses Not on filedocumented in this encounter Care Teams Lawn Mower Mechanic Relationship Specialty Start Date End Date Carl Patton MD [address] [place] [address] PCP - General Family Medicine 06/03/23 documented as of this encounter
--- OUTSIDE RECORDS SUMMARY | 2024-11-22 08:13 | XMS_ITS | Encounter Summary ---
Author Organization [employer] ([place], [place], [place], [place]) Address [address] [place] [address] Care Team Providers Care Records Assistant Name Role Phone Carl Patton MD Primary Care Provider [phone] Encounter Details Date Type Department Care Team (Late st Contact Info) Description 01/18/2021 Transcribed Document [facility] [address] [place] [id number] [place] [address] [place] [address] [address] [place] [address] Social History Tobacco Use Types Packs/Day Years [...] 1. Normal study. 2. Ejection fraction 63%. /[id number] Helena Romero MD NMF/AQ / NMF / MODL /[id number] documented in this encounter Plan of Treatment Not on file documented as of this encounter Visit Diagnoses Not on filedocumented in this encounter Care Teams Records Assistant Relationship Specialty Start Date End Date Carl Patton MD [address] [place] [address] PCP - General Family Medicine 06/03/23 documented as of this encounter
--- OUTSIDE RECORDS SUMMARY | 2024-11-22 08:13 | XMS_ITS | Encounter Summary ---
Author Organization [employer] ([place], [place], [place], [place]) Address [address] [place] [address] Care Team Providers Care Control System Computer Scientist Name Role Phone Carl Patton MD Primary Care Provider [phone] Encounter Details Date Type Department Care Team (Late st Contact Info) Description 01/13/2021 Transcribed Document [facility] [place] [facility] [place] [address] ProviderLucy MD [address] [place] [address] Social History Tobacco Use Types Packs/Day [...] 08:55 (MAGGIE ARANGO) No further action required Electronically signed by Charlene [facility] Conversion Director Of Hospitality Cerner at 08/31/2022 10:29 PM CDT documented in this encounter Plan of Treatment Not on file documented as of this encounter Visit Diagnoses Not on filedocumented in this encounter Care Teams Control System Computer Scientist Relationship Specialty Start Date End Date Carl Patton MD [address] [place] [address] PCP - General Family Medicine 06/03/23 documented as of this encounter
--- OUTSIDE RECORDS SUMMARY | 2024-11-22 08:13 | XMS_ITS | Clinical Summary ---
Author Organization Healthcare Address [address] [place] [address] Care Team Providers Care Glue Sprayer Name Role Phone Noah Wagner MD Primary Care Provider [phone] Social History Tobacco Use Types Packs/Day Years Used Date Smoking Tobacco: Never Assessed Sex and Gender Information Value Date Recorded Sex Assigned at Not on file Legal Sex Male 8:26 PM EDT Gender Identity Not on file Sexual Orientation Not on file Plan of Treatment Upcoming Encounters Date Type Department Care Team (Late st Contact Info) Description 12/04/2024 9:50 AM EDT Consult [facility] [address] [place] [address] Bhupinder Ardon MD [address] [place] [address] Health Maintenance Due Date Last Done Comments [facility]-Depression Screening 1965 [facility]-HIV Screening 1963 [facility]-Hepatitis C Screening 1965 [facility]-Infant/Child/Adol SDOH Screenings 1965 [facility]- SDOH Screenings 09/18/1981 [facility]-Adult SDOH Screenings 09/18/1981 CT Colonography 09/18/2008 Colonoscopy 09/18/2008 FIT-DNA 09/18/2008 FIT 09/18/2008 FOBT 09/18/2008 Sigmoidoscopy 09/18/2008 [facility]-Colorectal Cancer Screening 09/18/2008 [id number] Vaccine ( season) 2024 08/20/2020 [facility]-Influenza Vaccine [...] complete this topic Insurance MICK Care Teams Glue Sprayer Relationship Specialty Start Date End Date Noah Wagner MD [address] [place] [address] [address] [place] [address] PCP - General 09/26/20
--- OUTSIDE RECORDS SUMMARY | 2024-11-22 08:13 | XMS_ITS | Patient Health Record ---
Author Organization [facility] Address [address] [facility] [address] [place] [phone] Care Team Providers Care Anesthesia Attending Name Role Phone Elodia Patton Primary Care Provider Shawn Mcgee Unavailable [phone] Shanda Fu Unavailable [phone] Allergies Allergen (clinical drug ingredient) Drug/Non Drug [...] Interpretation:191 Performing Lab: Notes/Report: Test performed by [facility] [address] [place] [address] , [address], [place] [address] Marcus Gunderson MD, Photographer CLIA: [id number] Amylase 191 28-100 U/L P-Comprehensive Metabolic Pa quita (CMP) Reviewed date:10/26/2024 10:54:13 AM Interpretation:Na 132, Chl 93, Creat 1.72, Parmjit 10.8, eGFR 45 Performing Lab: Notes/Report: Test performed by [facility] [address] [place] [address] , [address], [place] [address] Marcus Gunderson MD, Photographer CLIA: [id number] Sodium 132 135-145 mmol/L Potassium 4.6 3.5-5.3 [...] 0.3 <0.2-1.2 mg/dL A/G Ratio 2.0 1.1-2.5 Q-Q-Qnvzrmrg Protein (CRP) Reviewed date:10/26/2024 10:54:13 AM Interpretation:Normal Performing Lab: Notes/Report: Test performed by [facility] [address] [place] [address] , [address] [id number] Marcus Gunderson MD, Photographer CLIA: [id number] C-Reactive Protein (CRP) 0.26 <0.50 mg/dL P-Sed Rate (ESR) Reviewed date:10/26/2024 10:54:13 AM Interpretation:Normal Performing Lab: Notes/Report: Test performed by [facility] [address] [place] [address] , [address], [place] [address] Marcus Gunderson MD, Photographer CLIA: [id number] Erythrocyte Sedimentation Rate (ESR), Automated 5 <21 mm/hr P-Lipase Reviewed date:10/26/2024 10:54:13 AM Interpretation:154.1 Performing Lab: Notes/Report: Test performed by [facility] [address] , [address], [place] [address] Marcus Gunderson MD, Photographer CLIA: [id number] Lipase 154.1 13.0-60.0 u/L P-TSH reflex to FT4 Reviewed date:10/26/2024 10:54:13 AM Interpretation:Normal Performing Lab: Notes/Report: Test performed by [facility] [address] , [address], [place] [address] Marcus Gunderson MD, Photographer CLIA: [id number] TSH reflex to FT4 1.88 0.43-5.25 mU/L H-Cortisol Reviewed date:11/09/2024 11:55:48 AM Interpretation: Performing Lab: Notes/Report: BROWN 14.2 6.2-19.4 ug/dL Please Note: The reference interval and flagging for this test is for an AM collection. If this is a PM collection please use: Cortisol PM: 2.3-11.9 Performed at: [facility] Lab[address] [id number] Painter Sign Maintenance: Jaime Jung PhD, Phone: [phone] H-UA Reviewed date:11/06/2024 01:28:38 PM Interpretation: Performing [...] 8.7 4.8-10.8 K/mm3 Delta: 13.7 o n 11/06/24-708 RBC 2.75 4.60-6.20 M/mm3 HGB 8.1 14.1-18.0 g/dL HCT 23.5 42.0-52.0 % MCV 85.5 80-94 fl MCH 29.5 27.0-31.2 pg MCHC 34.5 31.8-35.4 g/dL RDW-SD 43.1 RDW 13.9 11.5-17.5 % PLT 268 142-424 K/mm3 Delta: 398 on 11/06/24-09 MPV 9.5 7.4-10.4 fl NE% 72.0 37.0-80.0 [...] 94 74-100 mg/dl CA 8.2 8.4-10.2 mg/dl H-CBC Reviewed date:11/09/2024 11:55:48 AM Interpretation: Performing [...] 0.1 0-0.2 K/mm3 NRBC# 0 IG# 0.15 P-Alpha Gal, Galactose-Alpha -1,3-Galactose (Alpha-Gal) IgE Reviewed date:08/08/2024 05:14:55 PM Interpretation:Normal Performing Lab: Notes/Report: Test performed by [facility], [address] , [address], [place] [address] Marcus Gunderson MD, Photographer CLIA: [id number] Allergen, Food, Alpha Galactose (Alpha-Gal) IgE <0.1 <0.10-0.34 kU/L CBC Fingerstick (in house) Reviewed date:07/31/2024 10:05:54 [...] - 38 plat 369 100 - 400 H-Iron Reviewed date:01/10/2024 10:40:14 AM Interpretation: Performing Lab: Notes/Report: H-Ferritin Reviewed date:01/10/2024 10:40:01 AM Interpretation: Performing Lab: Notes/Report: H-CMP Reviewed date:01/10/2024 10:39:13 AM Interpretation: Performing Lab: Notes/Report: H-CBC Reviewed date:01/10/2024 10:38:58 AM Interpretation: Performing Lab: Notes/Report: H-Iron Reviewed date:01/12/2024 08:40:54 AM Interpretation:37 Performing [...] Lab: Notes/Report: SHARE RESULTS OF CMP WITH [facility] NA 133 136-145 mmol/L K 3.8 [...] 0.6 0.0-0.4 K/mm3 BA# 0.1 0-0.2 K/mm3 CBC Venipuncture (in house) Reviewed date:11/30/2023 10:24:51 [...] Interpretation:Normal Performing Lab: Notes/Report: Test performed by [facility] [address] [place] [address] , [place] [address] Marcus Gunderson MD, Photographer CLIA: [id number] Vitamin B12 3998 641-8744 pg/mL P-Comprehensive Metabolic Pa quita (CMP) Reviewed date:11/30/2023 10:24:51 AM Interpretation:K+ 3.4, Cr 1.69, gfr 46 Performing Lab: Notes/Report: Test performed by [facility] [address] [place] [address] , [address], [place] [address] Marcus Gunderson MD, Photographer CLIA: [id number] Sodium 137 135-145 mmol/L Potassium 3.4 3.5-5.3 [...] Interpretation:19.8 Performing Lab: Notes/Report: Test performed by [facility] [address] [place] [address] , [place] [address] Marcus Gunderson MD, Photographer CLIA: [id number] Ferritin 19.8 30.0-400.0 ng/mL P-Iron Reviewed date:11/30/2023 10:24:51 AM Interpretation:20 Performing Lab: Notes/Report: Test performed by [facility] [address] [place] [address] Natanael Connors, [place] [address] Marcus Gunderson MD, Photographer CLIA: [id number] Iron 20 59-158 ug/dL P-Vitamin D 25-Hydroxy Reviewed date:11/30/2023 10:24:51 AM Interpretation:49.8 Performing Lab: Notes/Report: Test performed by [facility] [address] [place] [address] , [address], [place] [address] Marcus Gunderson MD, Photographer CLIA: [id number] Vitamin D 25-Hydroxy 49.8 30.0-100.0 ng/mL Interpretation of Vitamin D 25 OH: < 20 ng/mL - Deficiency 20 - 29 ng/mL - Insufficiency 30 - 100 ng/mL - Sufficiency > 100 ng/mL - Super-therapeutic- toxicity may occur above this level. Clinical correlation required. H-Urea Breath Test Reviewed date:04/25/2024 09:05:13 AM Interpretation:Negative Performing Lab: Notes/Report: Patient Height (inches): 58.00 Patient Weight (pounds): 142 HPYBREATHR Negative Negative Performed at: [facility] [id number] Painter Sign Maintenance: Jaime Jung PhD, Phone: [phone] H-Food Allergy Profile Reviewed date:04/25/2024 09:05:24 AM [...] SESAMEP <0.10 Class 0 kU/L Performed at: [facility] Lab[address] [id number] Painter Sign Maintenance: Aleida Russlel MD, Phone: [phone] H-Hemoglobin/Hematocrit Reviewed date:11/09/2024 11:55:48 AM Interpretation: Performing Lab: Notes/Report: HGB 9.6 14.1-18.0 g/dL Delta: 7.4 on 11/08/24-0500 HCT 27.7 42.0-52.0 % H-Hemoglobin/Hematocrit Reviewed date:11/09/2024 11:55:49 AM Interpretation: Performing Lab: Notes/Report: HGB 8.7 14.1-18.0 g/dL Delta: 7.5 on 11/06/24-0709 HCT 25.1 42.0-52.0 % P-Basic Metabolic Panel (BMP ) Reviewed date:01/19/2024 08:27:07 AM Interpretation: Performing Lab: Notes/Report: Test performed by [facility] [address] [place], [place] [address] , [address], [place] [id number] Marcus Gunderson MD, Photographer CLIA: [id number] Sodium 138 135-145 mmol/L Potassium 4.1 3.5-5.3 mmol/L Chloride 99 97-108 mmol/L CO2 27 22-32 mmol/L Glucose 106 65-99 mg/dL BUN 12 8-23 mg/dL Creatinine 1.66 0.70-1.30 mg/dL Calcium 9.1 8.6-10.4 mg/dL eGFR by Creatinine 47 >59 mL/min/1.73m2 Allergy Footnotes Reviewed date:08/08/2024 05:14:55 PM Interpretation:Normal Performing Lab: Notes/Report: Test performed by [facility] [address] [place], [place] [address] , [address], [place] [address] Marcus Gunderson MD, Photographer CLIA: [id number] Allergy Footnotes SEE COMMENT Reference Ranges and [...] >=50.00 kU/L Very high level of sensitization Reason For Referral Reason Iron infusions due t o low iron level Diagnosis 1 Iron deficiency (E61 .1) [facility] Referring Provider First Name Shanda Referring Provider Last Name Tank Referring Provider Speciality Physician Surveillance System Monitor Referred Provider Specialty Hematology General Notes Dimple Berg 01/12/20 11:57:59 AM > faxed referral and labs to [facility] Oncology Referral Priority Routine Diagnosis 1 Esophageal dysphagia (R13.19) Ref[facility] Referring Provider First Name Shanda Referring Provider Last Name Tank Referring Provider Speciality Physician Surveillance System Monitor Referred Provider Gastroenterology, . Referred Provider Specialty Gastroentero logy General Notes Shanda Fu 04/19 3:56:09 PM > Needs first available with Dr. Vinson.Morena Brynn 04/19/2024 4:04:05 PM > faxed to Morena Wallace Brynn 04/23/2024 10:39:20 AM > 05/02/2024 at 03:30pm Referral Priority Routine Medications Medication SIG (Take, Route, Frequency, Duration) Notes Start Date End Date Status Irbesartan 150 MG 1 tablet Orally Once a day; Duration: 30 day(s) Active Metoclopramide HCl 5 MG 1 tablet before meals Orally three times a day as needed; Duration: 30 days 08/20/2024 Active Plavix 75 MG 1 tablet Orally Once a day; Duration: 30 day(s) Active Voquezna 20 MG 1 tablet Orally Once a day; Duration: 30 day(s) Not-Taking Nitroglycerin 0.4 MG 1 tab(s) sublingual ly every 5 minutes Active Align - as directed Orally N ot-Taking Esomeprazole Magnesium 40 MG 1 capsule 1/2 to 1 hour before morning meal Orally Once a day Active Metoprolol Succinate ER 50 MG 1/2 tab Not-Taking Ferrous Sulfate 325 (65 Fe) MG 1 tablet Orally twice a day Active Sucralfate 1 GM 2 Orally Twice a day ; Duration: 30 days 07/30/2024 Not-Taking Sucralfate 1 GM/10ML 10 mL Orally 3 time s a day Active Librax 5-2.5 MG 1 capsule before cortney ls Orally Three times a day; Duration: 30 days 07/30/2024 Not-Takin g Atorvastatin Calcium 40 MG 1 tablet Oral ly Once a day Active amLODIPine Besylate 5 MG 1 tablet Orally Once a day; Duration: 90 days Not-Takin g Iberogast - as directed Orally Not-Taking Pramipexole Dihydrochloride 0.125 MG 1 tablet Orally Once a day; Duration: 90 days 10/25/2024 Active Isosorbide Mononitrate ER 60 MG 1 tablet in the morning Orally Once a day Not-Taking Pantoprazole Sodium 40 MG 1 tablet Orall y Once a day Not-Taking Immunizations Vaccine Route Administration Date Status Comme [...] W/U Status Risk Notes Problem Essential hypertension (87336558) Essential (primary) hypertension (I10) Active confirmed Problem Coronary arteriosclerosis (20989534) ASCVD (arteriosclerotic cardiovascular disease) (I25.10) Active confirmed Problem Vitamin D deficiency (95026257) Vitamin D deficiency (E55.9) Active confirmed Problem Vitamin B12 deficiency (228234139) Vitamin B12 deficiency (E53.8) Active confirmed Problem Essential hypertension (40946676) Essential hypertension (I10) Active confirmed Problem Hypertriglyceridemia (904803771) Hypertriglyceridemia (E78.1) Active confirmed Problem Acute non-ST segment elevation myocardial infarction (708257194) NSTEMI (non-ST elevated myocardial infarction) (I21.4) Active confirmed Problem Dyspepsia (029742517) Dyspepsia (K30) Active co nfirmed Problem Dysphagia (92072690) Dysphagia (R13.10) Active confirmed Problem Hypomagnesemia (943952969) Hypomagnesemia (E83.42) Active confirmed Problem Ischemic cardiomyopathy (423332057) Ischemic cardiomyopathy (I25.5) Active confirmed Problem Chronic rhinitis (34334720) Chronic rhinitis (J31.0) Active confirmed Problem Restless legs (81285628) Restless leg (G25.81) Active confirmed Problem Renal insufficiency (140165371) Renal insufficiency (N28.9) Active confirmed Problem Gastroesophageal reflux disease (disorder) (941942665) Chronic GERD (K21.9) Active confirmed Problem COPD - Chronic obstructive pulmonary disease (73109384) Chronic obstructive pulmonary disease, unspecified COPD type (J44.9) Active confirmed Problem Gastroesophageal reflux disease with esophagitis (disorder) (935109430) GERD with esophagitis (K21.0) Active confirmed Problem History of placement of stent for coronary artery disease (situation) (937309113) Status post coronary artery stent placement (Z95.5) Active confirmed Problem Obstructive sleep apnea syndrome (72408119) SMOOTH (obstructive sleep apnea) (G47.33) Active confirmed Problem Hyperlipidaemia (46520806) Hyperlipidemia, unspecified hyperlipidemia type (E78.5) Active confirmed Problem Occlusion and stenosis of multiple and bilateral cerebral arteries (673221182) Carotid stenosis, bilateral (I65.23) Active confirmed Problem Esophageal spasm (81501399) Esophageal spasm (K22.4) Active confirmed Problem Atherosclerotic hear t disease of shinnecock coronary artery without angina pectoris (047929774741439) Atherosclerosis of shinnecock coronary artery without angina pectoris, unspecified whether shinnecock or transplanted heart (I25.10) Active confirmed Problem Atrophic gastritis (26955471) Chronic gastritis without bleeding, unspecified gastritis type (K29.50) Active confirmed Problem Esophageal dysmotility (601348492) Esophageal dysmotility (K22.4) Active confirmed Problem Oropharyngeal dysphagia (83842067) Oropharyngeal dysphagia (R13.12) Active confirmed Problem Hearing loss (68956325) Bilateral hearing loss, unspecified hearing loss type (H91.93) Active confirmed Problem Renal artery stenosi s (060163484) Renal artery stenosis (I70.1) Active confirmed Problem Gastroduodenitis (038262062) Gastritis without bleeding, unspecified chronicity, unspecified gastritis type (K29.70) Active confirmed Problem Gastroesophageal reflux disease (321023416) Gastroesophageal reflux disease, unspecified whether esophagitis present (K21.9) Active confirmed Problem Unstable angina co-occurrent and due to coronary arteriosclerosis (21893170288077386) Coronary artery disease involving shinnecock coronary artery of shinnecock heart with unstable angina pectoris (I25.110) Active confirmed Problem Chronic kidney disease stage 3A (disorder) (609094067) Stage 3a chronic kidney disease (CKD) (N18.31) Active confirmed Vital Signs Heart Rate 79 /min 11/19/2024 Blood pressure diastolic 74 mm Hg 11/19/2024 Height 68.75 in 11/19/2024 Blood pressure systolic 140 mm Hg 11/19/2024 Weight 135.2 lbs 11/19/2024 BMI 20.11 kg/m2 11/19/2024 Encounters Encounter [facility] Date [facility] 36 [facility] [address] [place] [id number] 11/23/2023 Sahnda Fu Essential hypertensi on I10 ; Coronary artery disease involving shinnecock coronary artery of shinnecock heart with unstable angina pectoris I25.110 ; Chronic GERD K21.9 ; Dysphagia, unspecified type R13.10 ; Status post coronary artery stent placement Z95.5 ; Stage 3a chronic kidney disease (CKD) N18.31 ; Iron deficiency E61.1 ; Vitamin D deficiency E55.9 and Vitamin B12 deficiency E53.8 [facility] 36 [facility] [address] [place] [id number] 12/23/2023 Shanda Crowdy Essential hypertensi on I10 ; Stage 3a chronic kidney disease (CKD) N18.31 ; Iron deficiency E61.1 ; Dizziness R42 ; Elevated blood pressure reading R03.0 and Bilateral hearing loss, unspecified hearing loss type H91.93 [facility] [facility] [address] [place] [id number] 01/18/2024 Shanda Crowdy Renal insufficiency N28.9 [facility] [place] [facility] [facility] [address] [place] [id number] 04/19/2024 Shanda Crowdy Nausea and vomiting in adult R11.2 ; Esophageal dysphagia R13.19 ; Esophageal spasm K22.4 and Gastritis without bleeding, unspecified chronicity, unspecified gastritis type K29.70 [facility] [place] 12[address] [facility] [address] [place] [id number] 07/12/2024 Shanda Crowdy Esophageal dysmotili ty K22.4 ; Chronic gastritis without bleeding, unspecified gastritis type K29.50 ; Chronic GERD K21.9 and Weight loss R63.4 [facility] 12[facility] [address] [place] [id number] 07/30/2024 Elodia Patton Weight loss R63.4 ; Dysphagia R13.10 and Dyspepsia K30 [facility] [place] 12[facility] [address] [place] [id number] 08/20/2024 Elodia Patton Oropharyngeal dyspha selwyn R13.12 ; Dysuria R30.0 and BMI 20.0-20.9, adult Z68.20 [facility] 12[facility] [address] [place] [id number] 10/25/2024 Shawn Hilliards Chronic rhinitis J31 .0 ; Nausea R11.0 ; Weight loss R63.4 ; Renal insufficiency N28.9 and Restless leg G25.81 [facility] [address] [place] [id number] 11/19/2024 Elodia Patton Esophageal dysphagia R13.19 ; ASCVD (arteriosclerotic cardiovascular disease) I25.10 ; Atherosclerosis of shinnecock coronary artery without angina pectoris, unspecified whether shinnecock or transplanted heart I25.10 ; Status post coronary artery stent placement Z95.5 ; Gastritis without bleeding, unspecified chronicity, unspecified gastritis type K29.70 ; Hypomagnesemia E83.42 and Carotid stenosis, bilateral I65.23 [facility] [address] [place], [place] [id number] 11/29/2023 Shanda Crowdy Iron deficiency E61. 1 [facility] [address] [place], [place] [id number] 01/12/2024 Shanda Crowdy Iron deficiency E61. 1 [facility] [address] [place], [place] [id number] 01/19/2024 Shanda Crowdy [facility] [address] [place], [place] [id number] 01/25/2024 Elodia Patton [facility] [address] [place] [id number] 04/20/2024 Shanda Crowdy [facility] [address] [place] [id number] 04/25/2024 Shanda Crowdy [facility] [address] [place], [place] [id number] 07/12/2024 Shanda Crowdy [facility] [address] [place] [id number] 10/23/2024 Elodia Patton [facility] [address] [place], [place] [id number] 10/26/2024 Shawn Mcgee [facility] [address] [place], [place] [id number] 11/05/2024 Elodia Patton Assessments Encounter Date Diagnosis (ICD Code) Assessment Notes Treatment Notes Treatment Clinical Notes Section Notes 11/23/2023 Essential hypertension (ICD-10 - I10) 11/23/2023 Coronary artery disease involving shinnecock coronary artery of shinnecock heart with unstable angina pectoris (ICD-10 - [...] - J31.0) 10/25/2024 Nausea (ICD-10 - R11.0) 11/19/2024 ASCVD (arteriosclerotic cardiovascular disease) (ICD-10 - I25.10) 11/19/2024 Esophageal dysphagia (ICD-10 - R13.19) 11/19/2024 Atherosclerosis of shinnecock coronary artery without angina pectoris, unspecified whether shinnecock or transplanted heart (ICD-10 - I25.10) 07/12/2024 Chronic GERD (ICD-10 - K21.9) 08/20/2024 [...] Resolved. 10/25/2024 Renal insufficiency (ICD-10 - N28.9) 11/19/2024 Status post coronary artery stent placement (ICD-10 - Z95.5) 11/19/2024 Gastritis without bleeding, unspecified chronicity, unspecified gastritis type (ICD-10 - K29.70) 10/25/2024 Restless leg (ICD-10 - G25.81) 12/23/2023 Elevated blood pressure reading (ICD-10 - R03.0) Improved. 11/23/2023 Status post coronary artery stent placement (ICD-10 - Z95.5) 11/23/2023 Stage 3a chronic kidney disease (CKD) (ICD-10 - N18.31) 12/23/2023 Bilateral hearing loss, unspecified hearing loss type (ICD-10 - H91.93) Resolved. 11/19/2024 Hypomagnesemia (ICD-10 - E83.42) 11/19/2024 Carotid stenosis, bilateral (ICD-10 - I65.23) 11/23/2023 Iron deficiency (ICD-10 - E61.1) 11/23/2023 Vitamin D deficiency (ICD-10 - E55.9) 11/23/2023 Vitamin B12 deficiency (ICD-10 - E53.8) Plan Of Treatment Pending Test Test Name Order Date Cardiac Stress Test Exercise Cardiolyte 01/12/2022 Carotid Duplex 11/19/2024 Next Appt Details Provider Name:Elodia Payne er, 12/17/2024 03:30:00 PM, [address], [place], [id number], Insurance Providers Payer Name Payer Address Payer Phone Subscriber Number Group Number Insured Name Patient Relationship to Insured Coverage Start Date [facility]age End Date [facility] [employer] [facility] [address] [place] [address] [id number] МАРИНА HALL Self - patient is the [...] Date(Month/Year) C4-C5 Neck Fusion 2016 [facility] 12/31/2019 Hospitalization History Reason Date(Month/Year) M I 06/03/2023
--- OUTSIDE RECORDS SUMMARY | 2024-11-22 08:13 | XMS_ITS | Data Portability ---
Author Organization [facility] TERESA Ventura Address [address] [place] [phone] Assessment No assessment recorded. Plan of Treatment [...] SNOMED-CT Code Diagnosis ICD10 Code Diagnosis Note [id number] ОЛЕГ RODRIGUEZ MD [facility] [address] [place] [phone] 09/20/2018 11:04:24 09/20/2018 16:26:54 Health Concerns Section Related Observation LastModified by Organization Detai ls LastModified Time None Recorded Concern Status LastModified by Organization Details LastModified Time None Recorded Advance Directives Directive None Recorded Payers Insurance Date Sequence Insurance Name Policy Number Policy Spencer Covered Member ID Spencer Member ID Guarantor Name 06/10/2023 1 [place] [id number] Arjun Melton [id number] Arjun Melton 09/20/2018 [facility] [employer] (BA) Arjun Melton [id number] Arjun Melton
--- OUTSIDE RECORDS SUMMARY | 2024-11-22 08:13 | XMS_ITS | Encounter Summary ---
Author Organization [employer] ([place], [place], [place], [place]) Address [address] [place] [address] Care Team Providers Care Dye Reel Operator Helper Name Role Phone Carl Patton MD Primary Care Provider [phone] Reason for Visit * Reason Comments Medication Refill Encounter Details Date Type Department Care Team (Late st Contact Info) Description 09/25/2024 Refill [facility] [address] [place] [address] Helena Romero MD [address] [facility] [address] [place] [address] Social History Tobacco Use Types Packs/Day Years [...] of Transportation (Non-Medical) Not on file 06/04/2023 Utilities Answer Date Recorded In the past 12 months, has t he electric, gas, oil, or water company threatened to shut off services in your home? No 06/03/2023 Food Insecurity Answer Date Recorded Within [...] Do you speak a language other than [place] at [facility]? No 06/03/2023 Do you want help with school or training? For example, starting or completing job training or getting a high school diploma, GED or equivalent. No 06/03/2023 Physical Activity Answer Date Recorded Number of minutes of exercise per week 420 06/03/2023 Substance Use Answer Date Recorded How [...] on filedocumented in this encounter Care Teams Dye Reel Operator Helper Relationship Specialty Start Date End Date Carl Patton MD [address] [place] [address] PCP - General Family Medicine 06/03/23 documented as of this encounter
--- OUTSIDE RECORDS SUMMARY | 2024-11-22 08:13 | XMS_ITS | Encounter Summary ---
Author Organization [employer] ([place], [place], [place], [place]) Address [address] [place] [address] Care Team Providers Care Demand Planning Analyst Name Role Phone Carl Patton MD Primary Care Provider [phone] [phone] Reason for Visit * Reason Comments Medication Refill Encounter Details Date Type Department Care Team (Late st Contact Info) Description 08/30/2024 Refill [facility] Cardiology [address] [place] [address] Helena Romero MD [address] [facility] [address] [place] [address] Social History Tobacco Use Types Packs/Day Years [...] Do you speak a language other than [place] Zealander at [facility]? No 06/03/2023 Do you want [...] on filedocumented in this encounter Care Teams Demand Planning Analyst Relationship Specialty Start Date End Date Carl Patton MD [address] [place] [address] PCP - General Family Medicine 06/03/23 documented as of this encounter
--- OUTSIDE RECORDS SUMMARY | 2024-11-22 08:13 | XMS_ITS | Encounter Summary ---
Author Organization [employer] ([place], [place], [place], [place]) Address [address] [place] [address] Care Team Providers Care Infantryman Name Role Phone Carl Patton MD Primary Care Provider [phone] [phone] Encounter Details Date Type Department Care Team (Late st Contact Info) Description 01/12/2021 Transcribed Document [facility] Family Medicine [place] [address] ProviderLucy MD [address] [place] [address] [id number] Social History Tobacco Use Types Packs/Day Years [...] : 2 - Emergent Tracking Group : [facility] ED SONDRA BAEZA RN - [...] 11:59:15 EDT) Problems(Active) Allergic rhinitis (SNOMED CT :594667314 ) Name of Problem: Allergic rhinitis ; Recorder: COLLIN AVERY RN; Confirmation: Confirmed ; Classification: Patient Stated ; Code: 250637667 ; Contributor System: [employer] ; Last Updated: 12/30/2020 8:57 EDT ; Life Cycle Date: 12/30/2020 ; Life Cycle Status: Active ; Vocabulary: SNOMED CT At risk for sleep apnea (IMO :56511685 ) Name of Problem: At risk for sleep apnea ; Recorder: SYSTEM, SYSTEM; Confirmation: Confirmed ; Classification: Medical ; Code: 76492260 ; Last Updated: 12/30/2020 9:12 EDT ; Life Cycle Date: 12/30/2020 ; Life Cycle Status: Active ; Vocabulary: IMO Chest pain (SNOMED CT :60775736 ) Name of Problem: Chest pain ; Recorder: COLLIN AVERY RN; Confirmation: Confirmed ; Classification: Patient Stated ; Code: 64730655 ; Contributor System: [employer] ; Last Updated: 12/30/2020 9:00 EDT ; Life Cycle Date: 12/30/2020 ; Life Cycle Status: Active ; Vocabulary: SNOMED CT COPD, moderate (SNOMED CT :208891330 ) Name of Problem: COPD, moderate ; Recorder: NEERAJ HAYWARD RN; Confirmation: Confirmed ; Classification: Patient Stated ; Code: 899454939 ; Contributor System: [employer] ; Last Updated: 09/05/2014 7:33 EDT ; Life Cycle Date: 09/05/2014 ; Life Cycle Status: Active ; Vocabulary: SNOMED CT Fatigue (SNOMED CT :775878803 ) Name of Problem: Fatigue ; Recorder: COLLIN AVERY RN; Confirmation: Confirmed ; Classification: Patient Stated ; Code: 115212336 ; Contributor System: [employer] ; Last Updated: 12/30/2020 9:01 EDT ; Life Cycle Date: 12/30/2020 ; Life Cycle Status: Active ; Vocabulary: SNOMED CT GERD - Gastro-esophageal reflux disease (SNOMED CT :6207282365 ) Name of Problem: GERD - Gastro-esophageal reflux disease ; Recorder: COLLIN AVERY RN; Confirmation: Confirmed ; Classification: Patient Stated ; Code: 8335866085 ; Contributor System: [employer] ; Last Updated: 12/30/2020 8:58 EDT ; Life Cycle Date: 12/30/2020 ; Life Cycle Status: Active ; Vocabulary: SNOMED CT HTN (hypertension) (SNOMED CT :9922503140 ) Name of Problem: HTN (hypertension) ; Recorder: FAUSTINO BARNETT MD; Confirmation: Confirmed ; Classification: Medical ; Code: 9147769225 ; Contributor System: [employer] ; Last Updated: 08/27/2014 11:22 EDT ; Life Cycle Date: 08/27/2014 ; Life Cycle Status: Active ; Responsible Provider: FAUSTINO BARNETT MD; Vocabulary: SNOMED CT Shortness of breath (SNOMED CT :020356526 ) Name of Problem: Shortness of breath ; Recorder: COLLIN AVERY RN; Confirmation: Confirmed ; Classification: Patient Stated ; Code: 562944428 ; Contributor System: [employer] ; Last Updated: 12/30/2020 9:01 EDT ; Life Cycle Date: 12/30/2020 ; Life Cycle Status: Active ; Vocabulary: SNOMED CT Smoker (SNOMED CT :761464942 ) Name of Problem: Smoker ; Recorder: COLLIN AVERY RN; Confirmation: Confirmed ; Classification: Patient Stated ; Code: 220869106 ; Contributor System: [employer] ; Last Updated: 12/30/2020 8:57 EDT ; Life Cycle Date: 12/30/2020 ; Life Cycle Status: Active ; Vocabulary: SNOMED CT Diagnoses(Active) Chest pain Date: 01/12/2021 ; Diagnosis Type: Reason For Visit ; Confirmation: Complaint of ; Clinical Dx: Chest pain ; Classification: Medical ; Clinical Service: Non-Specified ; Code: PNED ; Probability: 0 ; Diagnosis Code: [id number] ED Height and Weight Height Source : Stated Height Entry Format : [place] Height, Feet : 5 ft(Converted to: 152 cm, 60 Inch) Height, Inches : 8 Inch(Converted to: 0 ft 8 Inch, 20.32 cm) Clinical Height : 172.72 cm Weight Source, ED : Critical estimated dosing weight Weight Entry Format : [place] Weight, Pounds : 165 lb Clinical Dosing Weight : 75 kg Body Surface Area (BSA) : 1.89 m2 Body Mass Index : 25.1 kg/m2 (HI) [place] Body Weight (IBW) : 67.45 kg SONDRA [...] on filedocumented in this encounter Care Teams Infantryman Relationship Specialty Start Date End Date Carl Patton MD [address] [place] [address] PCP - General Family Medicine 06/03/23 documented as of this encounter
--- OUTSIDE RECORDS SUMMARY | 2024-11-22 08:13 | XMS_ITS | Encounter Summary ---
Author Organization [employer] ([place], [place], [place], [place]) Address [address] [place] [address] Care Team Providers Care Records Section Supervisor Name Role Phone Stanislaw Martinez MD Primary Care Provider [phone] [phone] Encounter Details Date Type Department Care Team (Late st Contact Info) Description 07/06/2021 Transcribed Document [facility] Medicine [address] [place] [address] ProviderLucy MD [address] [place] [address] Social History Tobacco Use Types Packs/Day Years Used Date Smoking Tobacco: Never Assessed PRAPARE - Transportation Answer Date Re corded [...] Do you speak a language other than Croatian at [facility]? No 06/03/2023 Do you want help with [...] Notes * Cerner Conversion Note - Historical Provider, - 07/06/2021 12:08 PM ART THERAPIST [address] [place] [address] PERSON INFORMATION Name МАРИНА HALL Age 55 Years 1965 Sex Male Language Croatian PCP STANISLAW MARTINEZ MD-[facility] Marital Status Single Med Service Emergency Medicine Acct# Arrival 01/12/2021 11:39:00 Visit Reason Chest pain; CP SINCE TUESDAY Acuity 2 - Emergent LOS 000 06:23 Depart Date: 01/12/21 06:02 PM Address: [address] [place] [address] [place] [address] Comment: PROVIDER INFORMATION DIAGNOSIS PHYS DOC NOTES [...] With: Address: When: STANISLAW MARTINEZ [address] [facility] [address] [place] [address] Business (1) Within 2 to 3 days Comment: documented in this encounter Plan of Treatment Not on file documented as of this encounter Visit Diagnoses Not on filedocumented in this encounter Care Teams Records Section Supervisor Relationship Specialty Start Date End Date Stanislaw Martinez MD [address] [facility] [address] [place] [address] PCP - General Family Medicine 06/03/23 documented as of this encounter
--- OUTSIDE RECORDS SUMMARY | 2024-11-22 08:13 | XMS_ITS | Clinical Summary ---
Author Organization [facility] Address [address] [place], [place] [address] Phone [email or web address] Care Team Providers Care Public Works Supervisor Name Role Phone Noah Wagner Primary [...] ( season) 2024 08/20/2020 Influenza Immunization (#1) 2025 10/0 10/2021, 02/25/2021, 03/04/2020, Additional history exists Tetanus Diphtheria [...] OPT OUT NO COPAY NB Care Teams Public Works Supervisor Relationship Specialty Start Date End Date Noah Wagner[address] [address] PCP - General Family Medicine 04/07/20
--- OUTSIDE RECORDS SUMMARY | 2024-11-22 08:13 | XMS_ITS | Encounter Summary ---
Author Organization [employer] ([place], [place], [place], [place]) Address [address] [place] [address] Care Team Providers Care Computer Technical Specialist Name Role Phone Carl Patton MD Primary Care Provider [phone] [phone] Reason for Visit * Reason Comments Medication Refill Encounter Details Date Type Department Care Team (Late st Contact Info) Description 09/21/2024 Refill [facility] Cardiology [address] [place] [address] Helena Romero MD [address] [facility] [address] [place] [address] Social History Tobacco Use Types Packs/Day Years [...] help 06/03/2023 Family and Community Support Answer Jr e Recorded If for any reason you need h elp with day-to-day activities such as bathing, preparing meals, shopping, managing finances, etc., do you get the help you need? I don't need any help 06/03/2023 Feeling Lonely or Isolated 0 06/03 Educational Attainment Answer Date Betr rded Do you speak a language other than Chadian at [facility]? No 06/03/2023 Do you want [...] on filedocumented in this encounter Care Teams Computer Technical Specialist Relationship Specialty Start Date End Date Carl Patton MD [address] [place] [address] PCP - General Family Medicine 06/03/23 documented as of this encounter
--- OUTSIDE RECORDS SUMMARY | 2024-11-22 08:13 | XMS_ITS | Encounter Summary ---
Author Organization [email or web address] ([place], [place], [place], [place]) Address [address] [place] [address] Care Team Providers Care Passenger Service Agent Name Role Phone Carl Patton MD Primary Care Provider [phone] [phone] Encounter Details Date Type Department Care Team (Late st Contact Info) Description 07/06/2021 Transcribed Document [facility] [place] Medicine [address] [place] [address] ProviderLucy MD [address] [place] [address] Social History Tobacco Use Types [...] speak a language other than Hungarian at [facility]? No 06/03/2023 Do you [...] - Historical Provider, - 07/06/2021 12:08 PM DATA ENTRY PROCESSOR Electronically signed by Charlene [facility] Conversion Silk Screen Printer Cerner at 08/31/2022 10:30 PM CDT documented in this encounter Plan of Treatment Not on file documented as of this encounter Visit Diagnoses Not on filedocumented in this encounter Care Teams Passenger Service Agent Relationship Specialty Start Date End Date Carl Patton MD [address] [place] [address] PCP - General Family Medicine 06/03/23 documented as of this encounter
--- OUTSIDE RECORDS SUMMARY | 2024-11-22 08:14 | XMS_ITS | Referral Summary ---
Author Organization [employer] ([place], [place], [place], [place]) Address [address] [place] [address] Care Team Providers Care Bisque Finisher Name Role Phone Carl Patton MD Primary Care Provider [phone] [phone] Encounters Date Type Department Care Team Description 09/25/2024 Refill [facility] Cardiology [address] [place] [address] Helena Romero MD 09/21/2024 Refill [facility] Cardiology [address] [place] [address] Helena Romero MD 08/30/2024 Refill [facility] Cardiology [address] [place] [address] Helena Romero MD from Last 3 [...] Do you speak a language other than Rwandan at [facility]? No 06/03/2023 Do you want help with [...] 0 - 249 mg/dL 06/04/2023 9:21 AM [facility] Cholesterol 235(H) 0 - 199 mg/dL 06/04/2023 9:21 AM [facility] Comment: 200 to 239 mg/dL = Moderate (borderline) >239 mg/dL = High HDL Cholesterol 55 >=40 mg/dL 06/04/2023 9:21 AM [facility] Comment: >=60 mg/dL = Desirable <40 mg/dL = Increased Risk All other components are listed individually or are calculations VLDL Cholesterol 23.4 5 - 40 mg/dL 06/04/2023 9:21 AM [facility] Cholesterol/HDL ratio 4.3(H) 0.0 - 3.2 06/04/2023 9:21 AM [facility] LDl/HDL Ratio 3 0 - 4 06/04/2023 9:21 AM [facility] RISK COMP 4 06/04/2023 9:21 AM [facility] LDL Cholesterol, Calculated 157(H) 0 - 99 mg/dL 06/04/2023 9:21 AM [facility] Blood Venipuncture / Unknown 06/04/2023 8:35 AM EST 06/04/2023 8:53 AM EST Matilde Welch MD LAB BLOOD ORDERABLES Sharyn bhakta Result [facility] [address] [phone] from Last 3 Months or Most Recently Relevant to Health Maintenance Insurance BLUE CROSS/BLUE SHIELD Advance Directives For more information, please contact: [phone] * Full Code (Latest Code Status on File) Date Activated Date Inactivated Comments 06/06/2023 12:34 PM 06/07/2023 4:41 PM * Full Code Date Activated Date Inactivated Comments 06/03/2023 10:28 AM 06/06/2023 12:34 PM Care Teams Bisque Finisher Relationship Specialty Start Date End Date Carl Patton MD [address] [place] [address] PCP - General Family Medicine 06/03/23
--- OUTSIDE RECORDS SUMMARY | 2024-11-22 08:14 | XMS_ITS | Encounter Summary ---
Author Organization [employer] ([place], [place], [place], [place]) Address [address] [place] [address] Care Team Providers Care Title Attorney Name Role Phone Carl Patton MD Primary Care Provider [phone] [phone] Reason for Referral * CAT Scan (Routine) - Closed Specialty Diagnoses / Procedures Referred By Contac t Referred To Contact Radiology Diagnoses Chronic kidney disease, unspecified CKD stage Procedures CTA abdomen & pelvis John Douglas MD [address] [place] [address] Phone: tel: fax: Referral ID Status Reason Start Date Expiration Date Visits Re quested Visits Authorized [id number] Closed 03/22/2024 04/20/2024 1 1 Encounter Details Date Type Department Care Team (Late st Contact Info) Description 03/22/2024 Outside Orders [facility] Central Scheduling [address] [place] [address] John Douglas MD [address] [place] [address] Chronic kidney disease, unspecified CKD stage (Primary [...] Do you speak a language other than Telugu at [facility]? No 06/03/2023 Do you want [...] Primary documented in this encounter Care Teams Title Attorney Relationship Specialty Start Date End Date Carl Patton MD [address] [place] [address] PCP - General Family Medicine 06/03/23 documented as of this encounter
--- OUTSIDE RECORDS SUMMARY | 2024-11-22 08:14 | XMS_ITS | Clinical Summary ---
Author Organization [employer] ([place], [place], [place], [place]) Address [address] [place] [address] Care Team Providers Care Mold Sheet Cleaner Name Role Phone Carl Patton MD Primary Care Provider +1 [phone] Allergies No known active allergies Medications lisinopriL [...] Type Department Care Team Description 09/25/2024 Refill [facility] Cardiology [address] [place] [address] Helena Romero MD 09/21/2024 Refill [facility] Cardiology [address] [place] [address] Helena Romero MD 08/30/2024 Refill [facility] Cardiology [address] [place] [address] Helena Romero MD from Last 3 [...] Do you speak a language other than Libyan at [facility]? No 06/03/2023 Do you want help with [...] HIV Screening 09/18/1978 Hepatitis C Screening 09/18/1981 Respiratory Syncytial Virus (RSV) Adult or (1 - Risk 60-74 years 1-dose series) 2023 COVID-19 VACCINE (2 - 2023-2 5 season) 2024 08/20/2020 Tobacco Cessation Counseling and Screening (12+) 06/24/2024 06/24/2023 Influenza Vaccine (#1) 2025 03/04/2020 Lipid Panel 06/04/2026 06/04/2023, 06/03/2023 DTAP/TDAP/TD VACCINES (5 - T d or Tdap) 12/12/2031 12/11/2021, 04/13/2021, 07/25/2019, Additional history exists Pneumococcal 50+ years Completed 08/12/2022, 2016 Shingles Vaccine (Zoster) Completed 11/01/2022, Procedures Procedure Name Priority Date/Time Associated Diagnosis Comments LIPID PANEL STAT 06/04/2023 8:35 AM EST from Last 3 Months or Most Recently Relevant to Health Maintenance Results * (ABNORMAL) Lipid panel (06/04/2023 8:35 AM EST) Triglycerides 117 0 - 249 mg/dL 06/04/2023 9:21 AM [facility] Cholesterol 235(H) 0 - 199 mg/dL 06/04/2023 9:21 AM [facility] Comment: 200 to 239 mg/dL = Moderate (borderline) >239 mg/dL = High HDL Cholesterol 55 >=40 mg/dL 06/04/2023 9:21 AM [facility] Comment: >=60 mg/dL = Desirable <40 mg/dL = Increased Risk All other components are listed individually or are calculations VLDL Cholesterol 23.4 5 - 40 mg/dL 06/04/2023 9:21 AM [facility] Cholesterol/HDL ratio 4.3(H) 0.0 - 3.2 06/04/2023 9:21 AM [facility] LDl/HDL Ratio 3 0 - 4 06/04/2023 9:21 AM [facility] RISK COMP 4 06/04/2023 9:21 AM [facility] LDL Cholesterol, Calculated 157(H) 0 - 99 mg/dL 06/04/2023 9:21 AM EST [facility] Blood Venipuncture / Unknown 06/04/2023 8:35 AM EST 06/04/2023 8:53 AM EST Matilde Welch MD LAB BLOOD ORDERABLES Sharyn bhakta Result [facility] [address] [place], [place] [address] [phone] from Last 3 Months or Most Recently Relevant to Health Maintenance Insurance [place] [id number] BLUE CROSS/BLUE SHIELD Advance Directives For more information, please contact: [phone] * Full Code (Latest Code Status on File) Date Activated Date Inactivated Comments 06/06/2023 12:34 PM 06/07/2023 4:41 PM * Full Code Date Activated Date Inactivated Comments 06/03/2023 10:28 AM 06/06/2023 12:34 PM Care Teams Mold Sheet Cleaner Relationship Specialty Start Date End Date Carl Patton MD [address] [place] [address] PCP - General Family Medicine 06/03/23
== END 2024-11-22 23:59 | disposition home or self-care (01) ==
LOC: RT 08:11
PROVIDERS: PCP Family Medicine; Visit Provider Family Medicine
DX: I65.23 Occlusion and stenosis of bilateral carotid arteries (principal); I10 Essential (primary) hypertension; E78.5 Hyperlipidemia, unspecified; F17.200 Nicotine dependence, unspecified, uncomplicated; Z95.818 Presence of other cardiac implants and grafts; Z95.828 Presence of other vascular implants and grafts
CPT/HCPCS: 93880

== ENCOUNTER 2024-12-27 07:56 | Outpatient (CLI) | payer BC, SELFPAY ==
--- OUTSIDE RECORDS SUMMARY | 2024-10-25 06:00 | XMS_ITS ---
Author Organization [facility] Address [address] [facility] [address] [facility] [address] [place] [phone] Care Team Providers Care Sheet Metal Duct Installer Name Role Phone Elodia Patton Primary Care Provider Shawn Mcgee Unavailable [phone] Allergies Allergen (clinical drug ingredient) Drug/Non Drug [...] Interpretation:191 Performing Lab: Notes/Report: Test performed by [facility] [address] [place] [address] , [address], [place] [address] Marcus Gunderson MD, Automatic Spinning Lathe Operator CLIA: [id number] Amylase 191 28-100 U/L P-Comprehensive Metabolic Pa quita (CMP) Reviewed date:10/26/2024 10:54:13 AM Interpretation:Na 132, Chl 93, Creat 1.72, Parmjit 10.8, eGFR 45 Performing Lab: Notes/Report: Test performed by [facility] [address] [place] [address] Natanael Connors, [address], [place] [address] Marcus Gunderson MD, Automatic Spinning Lathe Operator CLIA: [id number] Sodium 132 135-145 mmol/L Potassium 4.6 3.5-5.3 [...] 0.3 <0.2-1.2 mg/dL A/G Ratio 2.0 1.1-2.5 X-S-Yviirnbd Protein (CRP) Reviewed date:10/26/2024 10:54:13 AM Interpretation:Normal Performing Lab: Notes/Report: Test performed by [facility] [address] [place] [address] , [place] [address] Marcus Gunderson MD, Automatic Spinning Lathe Operator CLIA: [id number] C-Reactive Protein (CRP) 0.26 <0.50 mg/dL P-Sed Rate (ESR) Reviewed date:10/26/2024 10:54:13 AM Interpretation:Normal Performing Lab: Notes/Report: Test performed by [facility] [address] [place] [address] , [facility] [address], [place] [address] Marcus Gunderson MD, Automatic Spinning Lathe Operator CLIA: [id number] Erythrocyte Sedimentation Rate (ESR), Automated 5 <21 mm/hr P-Lipase Reviewed date:10/26/2024 10:54:13 AM Interpretation:154.1 Performing Lab: Notes/Report: Test performed by [facility] [address] [place] [address] , [address], [place] [address] Marcus Gunderson MD, Automatic Spinning Lathe Operator CLIA: [id number] Lipase 154.1 13.0-60.0 u/L P-TSH reflex to FT4 Reviewed date:10/26/2024 10:54:13 AM Interpretation:Normal Performing Lab: Notes/Report: Test performed by [employer] [address] [place] [address] , [address], [place] [address] Marcus Gunderson MD, Automatic Spinning Lathe Operator CLIA: [id number] TSH reflex to FT4 1.88 0.43-5.25 mU/L [...] W/U Status Risk Notes Problem Chronic rhinitis (49563314) Chronic rhinitis (J31.0) Active confirmed Vital Signs Weight 133 lbs 10/25/2024 Blood pressure systolic 112 mm Hg 10/26/19 25 Blood pressure diastolic 68 mm Hg 025 Heart Rate 97 /min 10/25/2024 Height 68.75 in 10/25/2024 BMI 19.78 kg/m2 10/25/2024 Encounters Encounter Location Date Provider Diagnosis [facility] [address] [facility] [address] [facility] [address] [place] [id number] 10/25/2024 Shawn Mcgee Chronic rhinitis J31 .0 [...] 5 Weeks, Reason: Provider Name:Elodia Payne , 01/07/2025 03:15:00 PM, [address] [place] [address] [facility], [address], [place], [phone], Progress Notes * МАРИНА HALLDOB: [birth year] (59 yo M)Acc No.[id number]:10/25/2024 Progress Notes Patient: МАРИНА WALKER Provider: Ekaterina Mcgee M.D. :1965 A ge:59 Y S ex:Male Date:10/25/2024 Address:[address] [place] [address] Judd Irby [id number] Pcp:Elodia Patton Subjective: * Chief Complaints: * [...] EDT > See phone encounter 3.?Weight loss?LAB: M-U-Hprlxdvz Protein (CRP) (Collection Date & Time - [...] * Images: Billing Information: * Visit Code: 29608 Office Visit, Est Pt., Level 4. * Procedure Codes: 67897 CBC WITH AUTO DIFF. G8783 BP SCR PRFRM RCMDD DEFIND SCR INTVL. G8752 MOST RECENT SYSTOLIC BP < 140MM HG. G8754 MOST RECENT DIASTOLIC BP < 90MM HG. * Electronic signature of Nika Mcgee MD on 12/27/2024 at 07:58 AM EDT Sign off status: Pending * Provider: Ekaterina Mcgee M.D. Date: 0 10/25/2024 Generated for Jacinto mendieta/Lucie/Johanny on: 0 12/27/2024 07:58 AM EDT History and Physical Notes * [...]
--- OUTSIDE RECORDS SUMMARY | 2024-11-19 11:15 | XMS_ITS ---
Author Organization [facility] Address [address] [facility] [address] [place] [id number] Care Team Providers Care Painter Helper Sign Name Role Phone Elodia Patton Primary Care Provider Allergies Allergen (clinical drug ingredient) Drug/Non Drug Allergy documented on EMR Reaction Allergy Type Onset Date Status hydroxyzine hydrOXYzine Unknown Drug Allergy Act alok Results Component Value Reference Range Notes Carotid Duplex Reviewed date:11/26/2024 02:37:43 PM Interpretation:Abnormal Performing Lab: Notes/Report: Abnormal REASON FOR VISIT [facility] F/U Medications Medication SIG (Take, Route, Frequency, [...] 11/19/2024 Encounters Encounter Location Date [facility] [address], [place] [id number] 11/19/2024 Elodia Patton Esophageal dysphagia R13.19 ; ASCVD (arteriosclerotic cardiovascular disease) I25.10 ; Atherosclerosis of [place] coronary artery without angina pectoris, unspecified whether [place] or transplanted heart I25.10 ; Status post coronary artery stent placement Z95.5 ; Gastritis without bleeding, unspecified chronicity, unspecified gastritis type K29.70 ; Hypomagnesemia E83.42 and Carotid stenosis, bilateral I65.23 Assessments Encounter Date Diagnosis (ICD Code) Assessment Notes Treatment Notes Treatment Clinical Notes Section Notes 11/19/2024 Esophageal dysphagia (ICD-10 - R13.19) 11/19/2024 ASCVD (arteriosclerotic cardiovascular disease) (ICD-10 - I25.10) 11/19/2024 Atherosclerosis of [place] coronary artery without angina pectoris, unspecified whether [place] or transplanted heart (ICD-10 - I25.10) 11/19/2024 Status post coronary artery stent placement (ICD-10 - Z95.5) 11/19/2024 Gastritis without bleeding, unspecified chronicity, unspecified gastritis type (ICD-10 - K29.70) 11/19/2024 Hypomagnesemia (ICD-10 - E83.42) 11/19/2024 Carotid stenosis, bilateral (ICD-10 - I65.23) Plan Of Treatment Next Appt Details Follow Up: 4 Weeks, Reason: Provider Name:Elodia Payne er, 01/07/2025 03:15:00 PM, [address], [address] , [place], [place], [id number], Progress Notes * МАРИНА HALLDOB: [birth year] (59 yo M)Acc No.[id number]:11/19/2024 Progress Notes Patient: МАРИНА WALKER Provider: Elodia Patton M.D. :1965 A ge:59 Y S ex:Male Date:11/19/2024 Address:[address] [place] [address] [place], [place] Subjective: * Chief Complaints: * 1 . [facility] F/U. * HPI: H PI: 59 year [...] C 4-C5 Neck Fusion 2015, Neck- [facility] 12/31/2019. * Hospitalization/Major Diagno stic Procedure: M [...] - I25.10 3 . A therosclerosis of [place] coronary artery without angina pectoris, unspecified whether [place] or transplanted heart - I25.10 4 . Status post coronary artery stent placement - Z95.5 5 . G astritis without bleeding, unspecified chronicity, unspecified gastritis type - K29.70 6 . H ypomagnesemia - E83.42 7 . C arotid stenosis, bilateral - I65.23 Plan: * Treatment: * Follow Up: 4 Weeks * Images: Billing Information: * Visit Code: 25645 Office Visit, Est Pt., Level 3. * Procedure Codes: * Electronic signature of Elodia Patton MD on 12/27/2024 at 07:59 AM EDT Sign off status: Pending * Provider: Elodia Patton M.D. Date: 11/19/2024 Generated for Jacinto mendieta/Lucie/eTransmitting on: 12/27/2024 07:59 AM EDT History and Physical Notes * HPI (History of Present Illness) Category Sub-Category Detail Notes Category Not es HPI Here for follow up on: elizabeth sorensen. Pt states he had one stent placed [...]
--- OUTSIDE RECORDS SUMMARY | 2024-12-04 09:50 | XMS_ITS | Encounter Summary ---
Author Organization Healthcare Address [address] [place] [address] Care Team Providers Care Photovoltaic Technician Name Role Phone System, Provider Not In MD Primary Care Provider Unavailable Encounter Details Date Type Department Care Team (Late st Contact Info) Description 12/04/2024 9:50 AM EDT Consult [facility] [address], [address] [place] [address] Bhupinder Ardon MD [address] [place] [address] Vasomotor rhinitis (Primary Dx); Gastroesophageal reflux disease, unspecified whether esophagitis present; Dyspepsia; Unintentional weight loss; Dysphagia, unspecified type; Current smoker Social History Tobacco Use Types Packs/Day Years Used Date Smoking Tobacco: Some Days Cigarettes Smokeless Tobacco: Never Tobacco Cessation:Ready to Q uit: Not Asked; Counseling Given: Not Answered Alcohol Use Standard Drinks/Week Comments Never 0 (1 standard drink = 0.6 oz pur e alcohol) AUDIT-C Answer Date Recorded Q1: How often do you have a drink containing alcohol? Never 12/04/2024 Q2: How many drinks containi ng alcohol do you have on a typical day when you are drinking? Patient does not drink Q3: How often do you have si x or more drinks on one occasion? Never 12/04/2024 Sex and Gender Information Value Date Recorded Sex Assigned at Not on file Legal Sex Male 8:26 PM EDT Gender Identity Not on file Sexual Orientation Not on file documented as of this encounter Last Filed Vital Signs Vital Sign Reading Time Taken Comments Blood Pressure 144/82 12/04/2024 9:28 AM EDT Pulse 79 12/04/2024 9:28 AM EDT Temperature - - Respiratory Rate - - Oxygen Saturation - - Inhaled Oxygen Concentration - - Weight 66 kg (145 lb 8.1 oz) 12/04/2024 9:28 AM EDT Height 172.7 cm (5' 8 ) 12/04/2024 9:28 AM EDT Body Mass Index 22.12 12/04/2024 9:28 AM EDT documented in this encounter Functional Status * AUDIT-C Score Answer Date of Assessment Author 0 12/04/2024 9:28 AM EDT Blanca Pratt * Question Answer Date of Assessment Author Q1: How often do you have a drink containing alcohol? Never 12/04/2024 9:28 AM EDT Gamaliel Pratt Q2: How many drinks containing alcohol do you have on a typical day when you are drinking? Patient does not drink 12/04/2024 9:28 AM EDT Gamaliel Pratt Q3: How often do you have six or more drinks on one occasion? Never 12/04/2024 9:28 AM EDT Gamaliel Pratt documented as of this encounter Miscellaneous Notes * Progress Notes - Carl Irwin MD - 12/04/2024 9:50 AM EDT CC: Reflux, burning in throat, and weight loss secondary to these I had the pleasure of seeing your patient today in clinic. Arjun Melton is a 59 y.o. male that presents with complaints of dyspepsia, reflux, burning in his throat, and weight loss secondary to these. He states that for approximately the past year he has been dealing with difficulty with acid reflux, especially over night. He says that he has progressively had to elevate the head of his bead and sleep on his back secondary to feeling like he has constant phlegm running down his throat. He says that it is so bad that he occasionally wakes up in the middle of the night with burning pain in his throat needing to get the phlegm out. Most often, he wakes up in the morning and has to cough/ vomit up a large amount of phlegm. It is typically white and thick. Occasionally it will look yellow/green. He reports that when he eats he gets very congested and is unable to breathe through his nose. He has tried multiple medications for his symptoms, including multiple PPIs, vonoprazan, azelastine-fluticasone, cetirizine, claritin, and xyzal. Nothing has seemed to help his symptoms. He reportshe takes a large amount of tums in an effort to relieve the pain/reflux. Recently had thyroid biopsy, has had two coronary stents, and multiple EGDs/colonoscopy within the past year. Multiple EGDs were to investigate these symptoms, recently had an ulcer found 10/2024, however reports he has been negative for h pylori. Visit Vitals BP (!) 144/82 (BP Location: Left arm, Patient Position: Sitting, BP Cuff Size: Adult) Pulse 79 Ht 1.727 m (5' 8 ) Wt 66 kg (145 lb 8.1 oz) BMI 22.12 kg/m?? Smoking Status Some Days BSA 1.78 m?? Allergies[1] Active Ambulatory Problems Diagnosis Date Noted No Active Ambulatory Problems Resolved Ambulatory Problems Diagnosis Date Noted No Resolved Ambulatory Problems No Additional Past Medical History Family history has been reviewed and is noncontributory. Social history as noted above Current Scheduled Medications[2] Current Continuous Medications[3] Current PRN Medications[4] 14 point ROS was negative with the exception of those listed in the HPI General: patient is awake, nontoxic appearing, and in no acute distress. Skin: No overtly ulcerated, cellulitic, or indurated lesions of the head or neck. Head: Normocephalic and atraumatic. Sinuses are nontender to palpation. Ears: The pinnas are well formed. External auditory canals are nonstenotic without cerumen impaction bilaterally. Tympanic membranes are intact bilaterally without evidence of effusion or active infection appreciated. Eyes: Extraocular muscles are intact. The sclera and conjunctiva are normal. No ptosis is appreciated. Nose: The nasal dorsum is without scar or deformity. No mucopurulence or polyps are appreciated. The nasal airways are patent bilaterally. Oral cavity: No mucosal masses or lesions are appreciated. Floor of mouth is soft and the tongue has full range of motion. There is appropriate incisor opening without trismus. There are no fasciculations of the tongue. Oropharynx: No mucosal masses or lesions are appreciated. The uvula is midline. Neck: The neck is soft and supple. No crepitus, masses, or lymphadenopathy are appreciated. The trachea is in midline. Circulatory: regular rate and rhythm, pulses 2+ bilaterally Pulmonary: no wheezing, no stridor PROCEDURE NOTE: Transnasal Fiberoptic Laryngoscopy PREOPERATIVE DIAGNOSIS: Dyspepsia, reflux, vasomotor rhinitis, throat pain, dysphagia POSTOPERATIVE DIAGNOSIS: Same as above PROCEDURE: Informed consent was obtained and all questions regarding the procedure were answered. Under topical anesthesia (2% Lidocaine and Ephedrine), the flexible laryngoscope was introduced and the findings noted. Following this, the procedure was terminated. The patient tolerated the procedurewell without apparent complications and was returned to ambulatory status to be followed as an outpatient. FINDINGS: The nasopharynx, oropharynx and hypopharynx were normal in appearance without suspicious masses or lesions. There is full mobility of bilateral true vocal folds without evidence of lesions or masses.The subglottis is widely patent. There is no pooling of secretions. A/P Arjun Melton is a 59 y.o. male that presents with complaints of dyspepsia, reflux, burning in his throat, and weight loss secondary to these. Given his description of his symptoms, sounds most concerning for reflux. Would recommend optimizing his GERD regimen. Recommended continuing to take hisesomeprazole in the morning and prescribed famotidine for the evening, given timing of symptoms. Ifno improvement, provided information regarding gaviscon. For vasomotor rhinitis, prescribed ipratropium nasal spray for use three times daily. Will schedule for follow up in 6 weeks after trialing these interventions. RTC in 6 weeks. Carl Irwin MD Internal Medicine - PGY3 [1] Allergies Allergen Reactions Hydroxyzine Other - please document in the comment field [2] [3] [4] Cosigned by Bhupinder Ardon MD at 12/05/2024 7:22 PM EDT Associated attestation - Bhupinder Ardon MD - 12/05/2024 7:22 PM EDT I saw and evaluated the patient. I discussed the case with the resident/fellow and agree with the findings and plan as documented. I was present for the entire procedure. documented in this encounter Plan of Treatment Upcoming Encounters Date Type Department Care Team (Late st Contact Info) Description 01/15/2025 4:10 PM EDT Office Visit [facility] [address] [place] [address] Bhupinder Ardon MD [address] [place] [address] documented as of this encounter Visit Diagnoses Diagnosis Vasomotor rhinitis- Primary Allergic rhinitis, cause unspecified Gastroesophageal reflux disease, unspecified whether esophagitis present Dyspepsia Dyspepsia and other specified disorders of function of stomach Unintentional weight loss Loss of weight Dysphagia, unspecified type Current smoker documented in this encounter Additional Health Concerns Assessment Noted Time A fall risk assessment has been complete d for the patient 12/04/2024 9:29 AM EDT A Body Mass Index follow-up plan has been documented for the patient 12/05/2024 7:22 PM EDT documented as of this encounter Care Teams Photovoltaic Technician Relationship Specialty Start Date End Date System, Provider Not In, [place] [address] PCP - General Family Medicine 12/04/24 documented as of this encounter
--- OUTSIDE RECORDS SUMMARY | 2024-12-17 11:30 | XMS_ITS ---
Author Organization [facility] Address [address] [facility] [address] [facility] [address] [place] [id number] Care Team Providers Care Credit Collections Rep Name Role Phone Elodia Patton Primary Care Provider Allergies Allergen (clinical drug ingredient) Drug/Non Drug Allergy documented on EMR Reaction Allergy Type Onset Date Status hydroxyzine hydrOXYzine Unknown Drug Allergy Act alok Results Component Value Reference Range Notes CBC Fingerstick (in house) Reviewed date:12/18/2024 11:10:34 AM Interpretation:Normal Performing Lab: Notes/Report: Normal wbc 8.9 3.5 - 10 lym 20.3% 15 - 50 mid 5.1% 2 - 15 gran 74.6% 35 - 80 rbc 4.25 3.5 - 5.5 hgb 12.3 11.5 - 16.5 hct 36.6 35 - 55 mcv 86.2 75 - 100 mch 29.0 25 - 35 mchc 33.6 31 - 38 plat 460 100 - 400 P-Basic Metabolic Panel (BMP ) Reviewed date:12/18/2024 11:10:34 AM Interpretation:satisfactory Performing Lab: Notes/Report: Test performed by [facility] [address] [place] [address] , [address], [place] [address] Marcus Gunderson MD, Mail Carrier And Clerk CLIA: [id number] Sodium 134 135-145 mmol/L Potassium 3.5 3.5-5.3 mmol/L Chloride 99 97-108 mmol/L CO2 25 20-32 mmol/L Glucose 115 65-99 mg/dL BUN 8 8-23 mg/dL Creatinine 1.30 0.70-1.30 mg/dL Calcium 8.9 8.6-10.4 mg/dL eGFR by Creatinine 62 >59 mL/min/1.73m2 Reason For Referral Reason Follow up Diagnosis 1 Esophageal dysmotili ty (K22.4) [facility] Referring Provider First Name Elodia Jeffrey Referring Provider Last Name Abdi Referring Provider [facility] ctice Referred Organization [facility] OP Referred Provider SINDY VINSON Referred Address [address] [place] [place],[id number], Referred Provider Specialty Gastroentero logy General Notes Dimple Berg 2024 04:12:32 PM > faxed to Dr. Vinson Referral Priority Routine Reason follow-up. ACTUALLY HAS APPT IN . CAROTID STENOSIS IS NEW FINDING THAT NEEDS TO BE ADDRESSED Diagnosis 1 Status post coronary artery stent placement (Z95.5) [facility] Referring Provider First Name Elodia Jeffrey Referring Provider Last Name Abdi Referring Provider [facility] ctice Referred Provider Александр Barillas Referred Provider Specialty Cardiovascul ar Disease General Notes Dimple Berg 2024 04:02:41 PM > faxed to [facility] Cardiology Referral Priority Routine REASON FOR VISIT 1 Month F/U Medications Medication SIG (Take, Route, Frequency, Duration) Notes Start Date End Date Status Isosorbide Mononitrate ER 60 MG 1 tablet in the morning Orally Once a day Not-Taking Iberogast - as directed Orally Not-Taking Escitalopram Oxalate 10 MG 1 tablet Oral ly Once a day; Duration: 30 days 12/17/2024 Active Align - as directed Orally N ot-Taking Voquezna 20 MG 1 tablet Orally Once a day; Duration: 30 day(s) Not-Taking amLODIPine Besylate 5 MG 1 tablet Orally Once a day; Duration: 90 days Not-Takin g Librax 5-2.5 MG 1 capsule before cortney ls Orally Three times a day; Duration: 30 days 07/30/2024 Not-Takin g Sucralfate 1 GM 2 Orally Twice a day ; Duration: 30 days 07/30/2024 Not-Taking Metoprolol Succinate ER 50 MG 1/2 tab Not-Taking Pantoprazole Sodium 40 MG 1 tablet Orall y Once a day Not-Taking Pramipexole Dihydrochloride 0.125 MG 1 tablet Orally Once a day; Duration: 90 days 10/25/2024 Active Nitroglycerin 0.4 MG 1 tab(s) sublingual ly every 5 minutes Active Plavix 75 MG 1 tablet Orally Once a day; Duration: 30 day(s) Active Irbesartan 150 MG 1 tablet Orally Once a day; Duration: 30 day(s) Active Metoclopramide HCl 5 MG 1 tablet before meals Orally three times a day as needed; Duration: 30 days 08/20/2024 Active Atorvastatin Calcium 40 MG 1 tablet Oral ly Once a day Active Sucralfate 1 GM/10ML 10 mL Orally 3 time s a day Active Ferrous Sulfate 325 (65 Fe) MG 1 tablet Orally twice a day Active Esomeprazole Magnesium 40 MG 1 capsule 1/2 to 1 hour before morning meal Orally Once a day Active Problems Problem Type SNOMED Code ICD Code Onset Dates Problem Status W/U Status Risk Notes Problem Reactive depression (situational) (70658788) Situational depression (F43.21) Active confirmed Vital Signs Weight 134.0 lbs 12/17/2024 Blood pressure systolic 120 mm Hg 12/18/19 25 Blood pressure diastolic 74 mm Hg 025 Heart Rate 80 /min 12/17/2024 Height 68.75 in 12/17/2024 BMI 19.93 kg/m2 12/17/2024 Encounters Encounter Location Date Provider Diagnosis [facility] [address] [facility] [address] [place], [place] [id number] 12/17/2024 Elodia Patton ASCVD (arteriosclero tic cardiovascular disease) I25.10 ; Chronic GERD K21.9 ; Esophageal dysmotility K22.4 ; Carotid stenosis, bilateral I65.23 ; Status post coronary artery stent placement Z95.5 ; Situational depression F43.21 ; History of GI bleed Z87.19 and Body mass index (BMI) of 19.0 to 19.9 in adult Z68.1 Assessments Encounter Date Diagnosis (ICD Code) Assessment Notes Treatment Notes Treatment Clinical Notes Section Notes 12/17/2024 ASCVD (arteriosclerotic cardiovascular disease) (ICD-10 - I25.10) 12/17/2024 Chronic GERD (ICD-10 - K21.9) 12/17/2024 Esophageal dysmotility (ICD-10 - K22.4) 12/17/2024 Carotid stenosis, bilateral (ICD-10 - I65.23) 12/17/2024 Status post coronary artery stent placement (ICD-10 - Z95.5) 12/17/2024 Situational depression (ICD-10 - F43.21) 12/17/2024 History of GI bleed (ICD-10 - Z87.19) 12/17/2024 Body mass index (BMI) of 19.0 to 19.9 in adult (ICD-10 - Z68.1) Plan Of Treatment Medication Medication Name Sig Start Date Stop Date Notes Escitalopram Oxalate 10 MG 1 tablet Oral ly Once a day; Duration: 30 days 12/17/2024 Pending Test Test Name Order Date CTA : Neck 12/17/2024 Referrals Referral Date Details 12/17/2024 12/17/2024, Follow u p, SINDY VINSON, [address] [place] [address], [place], [place], [id number], 12/17/2024 12/17/2024, follow-u p. ACTUALLY HAS APPT IN . CAROTID STENOSIS IS NEW FINDING THAT NEEDS TO BE ADDRESSED, Александр Barillas Next Appt Details Follow Up: 4 Weeks, Reason: Provider Name:Elodia Payne er, 01/07/2025 03:15:00 PM, [address], [address], [place], [place], [id number], Progress Notes * МАРИНА HALLDOB: [birth year] (59 yo M)Acc No.[id number]:12/17/2024 Progress Notes Patient: МАРИНА WALKER Provider: Elodia Patton M.D. :1965 A ge:59 Y S ex:Male Date:12/17/2024 Address:[address] [place] [address] [place] [id number] Subjective: * Chief Complaints: * 1 . 1 Month F/U. * HPI: G astroenterology: The pt is here for a follow up on GI bleed. Pt states he has noticed some sunny stools but thinks it is due to the iron pill twice a day. Pt denies any black stools. Pt states he does have some occasional abdominal pain. Pt states he had a carotid duplex. See Pt docs. 59 year old male presents with c/o Abdominal Pain e pigastric. c/o Nausea. Denies : Vomiting. D enies : Diarrhea. D enies : Fever.?Denies : melena. C ardiology: Has cardiology appt in January. Carotid study showed severe stenosis of left carotid artery. CTA was suggested. This has not yet received attention from cardiology. * ROS: D ERMATOLOGY: no R ceci. [...] C 4-C5 Neck Fusion 2015, Neck- [employer] 12/31/2019. * Hospitalization/Major Diagno stic Procedure: M [...] M arital Status: Single. * Medications: T tessa Esomeprazole Magnesium 40 MG Capsule Delayed Release [...] Side Effects. Objective: * Vitals: W t: 134.0, Temp: 98.1, BP: 120/74, HR: 80, Nurse: KAROLINA, Ht: 68.75, BMI:19.93. * Examination: G eneral Examination: General Appearance: N AD, weight noted. H EENT: b ilateral carotid bruits. O ral cavity: n o lesions, mucosa moist and WNL, no erythema. N consuelo: s upple, no lymphadenopathy. C hest: n ormal shape and expansion. H eart: R SR. L ungs: c lear to auscultation. A bdomen: s oft and nontender, no organomegaly or masses. N eurologic Exam: I ntact, gait normal. S kin: n ormal, no rash. P eripheral pulses: n ormal . E xtremities: n o leg edema. Assessment: * Assessment: 1. A SCVD (arteriosclerotic cardiovascular disease) - I25.10 (Primary) 2 . C hronic GERD - K21.9 3 . E sophageal dysmotility - K22.4 4 .?Carotid stenosis, bilateral - I65.23 5 . S tatus post coronary artery stent placement - Z95.5 6 . S ituational depression - F43.21 7 . H istory of GI bleed - Z87.19 8 . B macey mass index (BMI) of 19.0 to 19.9 in adult - Z68.1 Plan: * Treatment: Value Reference Range B UN 8 8-23 - mg/dL * C alcium 8.9 8.6-10.4 - mg/dL * C hloride 99 97-108 - mmol/L * C O2 25 20-32 - mmol/L * C reatinine 1.30 0.70-1.30 - mg/dL * G lucose 115 H 65-99 - mg/dL * P otassium 3.5 3.5-5.3 - mmol/L * S odium 134 L 135-145 - mmol/L * e GFR by Creatinine 62 >59 - mL/min/1.73m2 * Maryana Castro 12/18/2024 11: 10:11 AM EDT > Patient informed of normal results. 2.?Esophageal dysmotility? Referral To:SINDY VINSON??Gastroenterology ?Reason:Follow up 3.?Carotid stenosis, bilateral?Imaging: CTA : Neck* Dimple Berg 12/17/2024 04:18 :47 PM EDT >auth#[id number]; valid 12/17/2024- 01/15/2025; CPT code 15613; faxed to [facility] Scheduling 4.?Status post coronary artery stent placement? Referral To:Александр Barillas??Cardiovascular Disease ?Reason:follow-up. ACTUALLY HAS APPT IN . CAROTID STENOSIS IS NEW FINDING THAT NEEDS TO BE ADDRESSED 5.?Situational depression? Start Escitalopram Oxalate Tablet, 10 MG, 1 tablet, Orally, Once a day, 30 days, 30, Refills 3. ? * Labs: * L ab: CBC Fingerstick (in house) (Collection Date & Time - 12/17/2024) N ormal Value Reference Range w bc 8.9 3.5 - 10 * l ym 20.3% 15 - 50 * m id 5.1% 2 - 15 * g ran 74.6% 35 - 80 * r bc 4.25 3.5 - 5.5 * h gb 12.3 11.5 - 16.5 * h ct 36.6 35 - 55 * m cv 86.2 75 - 100 * m ch 29.0 25 - 35 * m chc 33.6 31 - 38 * p lat 460 100 - 400 * Maryana Castro 12/18/2024 11: 10:11 AM EDT > Patient informed of normal results. * Procedure Codes: 8 5025 CBC WITH AUTO DIFF, 3074F SYST BP LT 130 MM HG, 3078F DIAST BP < 80 MM HG * Follow Up: 4 Weeks * Images: Billing Information: * Visit Code: 53911 Office Visit, Est Pt., Level 4. * Procedure Codes: 47603 CBC WITH AUTO DIFF. 3074F SYST BP LT 130 MM HG. 3078F DIAST BP < 80 MM HG. * Electronic signature of Elodia Patton MD on 12/27/2024 at 07:59 AM EDT Sign off status: Pending * Provider: Elodia Patton M.D. Date: 0 12/17/2024 Generated for Printi ng/Fatorrig/eTransmitting on: 0 12/27/2024 07:59 AM EDT History and Physical Notes * HPI (History of Present Illness) Category Sub-Category Detail Notes Category Not es Gastroenterology Fever Vomiting Abdominal Pain epigastric Diarrhea Nausea melena Examination Category Sub-Category Detail Notes Category Not es General Examination HEENT: bilateral carotid bru its Heart: RSR Lungs: clear to auscultatio n Abdomen: soft and nontender, no organomegaly or masses Extremities: no leg edema General Appearance: NAD, weight noted Skin: normal, no rash Neurologic Exam: Intact, gait normal Neck: supple, no lymphaden opathy Oral cavity: no lesions, mucosa m oist and WNL, no erythema Peripheral pulses: normal Chest: normal shape and exp ansion Consultation Request Notes Referral Date Referring Provider Referred Provider Not es 12/17/2024 Elodia Patton E[facility] Follow up 12/17/2024 Elodia Patton Matthew follo w-up. ACTUALLY HAS APPT IN . CAROTID STENOSIS IS NEW FINDING THAT NEEDS TO BE ADDRESSED
--- OUTSIDE RECORDS SUMMARY | 2024-12-27 07:59 | XMS_ITS | Encounter Summary ---
Author Organization [employer] ([place], [place], [place], [place]) Address [address] [place] [address] Care Team Providers Care Turnstile Collector Name Role Phone Carl Patton MD Primary Care Provider [phone] Encounter Details Date Type Department Care Team (Late st Contact Info) Description 12/30/2020 Transcribed Document [facility] [address] [place] [address] ProviderLucy MD [address] [place] [address] Social History Tobacco Use Types Packs/Day Years Used Date Smoking Tobacco: Never Assessed Sex and Gender Information Value Date Recorded Sex Assigned at Not on file Legal Sex Male 5:20 PM CDT Gender Identity Not on file Sexual Orientation Not on file documented as of this encounter Miscellaneous Notes * Cerner Conversion Note - Historical ProviderMD - 12/30/2020 7:09 PM CDT [facility] [place] [address] Visit Date/Time: 12/30/2020 19:09:58 МАРИНА HALL The above patient was seen in the hospital today and needs to be excused from work/school until Return to Work/School Date: 01/05/2021 Electronically signed by Charlene [facility] Conversion Physician Vice President Cerner at 08/31/2022 10:41 PM CDT documented in this encounter Plan of Treatment Not on file documented as of this encounter Visit Diagnoses Not on filedocumented in this encounter Care Teams Turnstile Collector Relationship Specialty Start Date End Date Carl Patton MD [address] [place] [address] PCP - General Family Medicine 06/03/23 documented as of this encounter
--- OUTSIDE RECORDS SUMMARY | 2024-12-27 07:59 | XMS_ITS | Encounter Summary ---
Author Organization [employer] ([place], [place], [place], [place]) Address [address] [place] [address] Care Team Providers Care Journalists And Other Writers Name Role Phone Carl Patton MD Primary Care Provider +1 [phone] Encounter Details Date Type Department Care Team (Late st Contact Info) Description 12/30/2020 Transcribed Document [facility] [place] Family Medicine [place] [address] ProviderLucy MD [address] [place] [address] Social History Tobacco Use Types Packs/Day [...] Source : Measured Height Entry Format : Kimball Height, Feet : 5 ft(Converted to: 152 cm, 60 Inch) Height, Inches : 8 Inch(Converted to: 0 ft 8 Inch, 20.32 cm) Clinical Height : 172.72 cm Weight Source : Standing scale Weight Entry Format : Kimball Clinical Dosing Weight : 75 kg Weight, Pounds : 165 lb Weight, Ounces : 0 oz Body Surface Area (BSA) : 1.89 m2 Body Mass Index : 25.1 kg/m2 (HI) [place] Body Weight : 67 kg COLLIN AVERY [...] COLLIN AVERY RN - 12/30/2020 9:06 EDT [place] Suicide Severity Rating Scale (C-SSRS) CSSRS Past [...] Info Legal Guardian : No Support Person/Patient Night Time Nanny : No Want Family/Rep/Phys Notified of Admit : No Emergency Contact #1 : [place] Emergency Contact #1 Emergency Contact #1 Relationship : girlfriend Emergency Contact #2 : x Emergency Contact #2 Phone Number : x Emergency Contact #2 Relationship : x Primary Language : Spanish Preferred Communication Mode : Verbal Communication Barrier : None Clearance Rep Needed : No COLLIN AVERY RN - [...] Scale Bean Sensory Perception : No impairment Eban Moisture : Rarely moist Bean Activity : [...] Mental Status : Oriented to own ability El Fall Risk Score : 20 LE Fall Scale Risk Level : 0-24 Low Risk [place] Fall Interventions : Adequate lighting, Assistive devices [...] on filedocumented in this encounter Care Teams Journalists And Other Writers Relationship Specialty Start Date End Date Carl Patton MD [address] [place] [address] PCP - General Family Medicine 06/03/23 documented as of this encounter
--- OUTSIDE RECORDS SUMMARY | 2024-12-27 07:59 | XMS_ITS | Encounter Summary ---
Author Organization [employer] ([place], [place], [place], [place]) Address [address] [place] [address] Care Team Providers Care Wind Technician Name Role Phone Stanislaw Martinez MD Primary Care Provider [phone] [phone] Encounter Details Date Type Department Care Team (Late st Contact Info) Description 12/30/2020 Transcribed Document [facility] [place] [address] ProviderLucy MD [address] [place] [address] Social History Tobacco Use Types Packs/Day Years Used Date Smoking Tobacco: Never Assessed Sex and Gender Information Value Date Recorded Sex Assigned at Not on file Legal Sex Male 5:20 PM CDT Gender Identity Not on file Sexual Orientation Not on file documented as of this encounter Miscellaneous Notes * Cerner Conversion Note - Lucy Scott MD - 12/30/2020 7:07 PM CDT [facility] [place] [address] [address] МАРИНА HALL :1965 Visit Time:12/30/2020 Your Visit Summary Your Care Team Admitting Physician - DEBBY ROMERO MD-CAR Attending Physician - DEBBY ROMERO MD-CAR Primary Care Physician - STANISLAW MARTINEZ MD-[facility] Referring Physician - DEBBY ROMERO MD-CAR [...] Comments Call for follow up appointment Where: [address] [place] [address] [address] [place] [id number]- Medications What How Much When Instructions Next [...] cause a heart attack (myocardial infarction or IA). This condition may also be called coronary [...] these instructions at home: Medicines ??? Take oxkg-swx-cqjdqjo and prescription medicines only as told by [...] provider. Document Revised: 01/19/2019 Document Reviewed: 01/09/2019 ElseSemblee_ Patient Education ?? 2020 [employer]IQ. What you need to know about coronavirus disease 2019 (COVID-19) Missing Image - the embedded image is not supported https://www.cdc.gov/coronavirus/2019-ncov/ HYPERLINK https://www.cdc.gov/coronavirus/2019-ncov/cases-in-us.html cases-in-us.html. How does COVID-19 spread? The virus that causes COVID-19 probably emerged from an animal source, but now it seems to be spreading from person to person. It???s important to note that wzbptm-ci-spbmxc spread can happen on a continuum. Some [...] least 20 seconds. Use an alcohol-based hand hangar attendant that contains at least 60% alcohol if [...] you are awake and alert. ??? Take qfka-fta-ylnbgzq and prescription medicines only as told by [...] provider. Document Revised: 04/14/2018 Document Reviewed: 08/21/2016 Shozu Patient Education ?? 2020 [employer]. Transradial Angiogram A transradial angiogram is an [...] including vitamins, herbs, eye drops, creams, and azsj-qsm-dksdrzq medicines. ??? Any problems you or family [...] tells you to take them. ??? Taking crig-scf-czfrehp medicines, vitamins, herbs, and supplements. Exams and [...] provider. Document Revised: 03/26/2019 Document Reviewed: 03/26/2019 Shozu Patient Education ?? 2020 [employer] Inc. Radial Site Care This sheet gives [...] these instructions at home: Medicines ??? Take pygn-lxm-ojgesyp and prescription medicines only as told by your health care provider. Insertion site care ??? Follow instructions from your health care provider about how to take care of your insertion site. Make sure you: ? Wash your hands with soap and water before you change your bandage (dressing). If soap and water are not available, use hand hangar attendant. ? Change your dressing as told by [...] Reviewed: 06/07/2018 Elsevier Patient Education ?? 2020 ElseSemblee_ Inc. Emergency Awareness and Preventative Care STROKE [...] Assistance with quitting is available by contacting 5-533-ILMKNOW. This is a free resource providing counseling, support, and referral. Or you may contact your personal physician. [employer] Suicide Prevention Lifeline: The National Suicide Prevention [...] was given the opportunity to ask questions. Patient/Configuration Management Administrator Name: Patient/Configuration Management Administrator Signature: Relationship to Patient: Clinician/Hospital Configuration Management Administrator Signature: Date: Electronically signed by Interface, [facility] Conversion Mine Deputy Cerner at 08/31/2022 10:54 PM CDT documented in this encounter Plan of Treatment Not on file documented as of this encounter Visit Diagnoses Not on filedocumented in this encounter Care Teams Wind Technician Relationship Specialty Start Date End Date Stanislaw Martinez MD [address] [place] [address] PCP - General Family Medicine 06/03/23 documented as of this encounter
--- OUTSIDE RECORDS SUMMARY | 2024-12-27 07:59 | XMS_ITS | Encounter Summary ---
Author Organization [employer] ([place], [place], [place], [place]) Address [address] [place] [address] Care Team Providers Care Commercial Fishing Vessel Operator Name Role Phone Carl Patton MD Primary Care Provider [phone] [phone] Encounter Details Date Type Department Care Team (Late st Contact Info) Description 12/30/[address] [facility] [place] Family [place] [address] ProviderLucy MD [address] [place] [id number] Social History Tobacco Use Types Packs/Day Years [...] Patient Referral Reason Comment : Advance directive Eight Arm Operator Services Provided : Yes Eight Arm Operator Services Provided Comment : Living will Ministry Provided to : Patient, Family/Significant other Gnosticist Preference : Other: No JACK ALFARO 12/30/2020 [...] Family/Significant other supported, Information provided Spiritual and Gnosticist : Spiritual/Gnosticist support provided JACK ALFARO 12/30/2020 12:50 EDT Electronically signed by Charlene [facility] Conversion Drain Tile Machine Operator Cerner at 08/31/2022 10:41 PM CDT documented in this encounter Plan of Treatment Not on file documented as of this encounter Visit Diagnoses Not on filedocumented in this encounter Care Teams Commercial Fishing Vessel Operator Relationship Specialty Start Date End Date Carl Patton MD [address] [place] [address] PCP - General Family Medicine 06/03/23 documented as of this encounter
--- OUTSIDE RECORDS SUMMARY | 2024-12-27 07:59 | XMS_ITS | Encounter Summary ---
Author Organization [employer] ([place], [place], [place], [place]) Address [address] [place] [address] Care Team Providers Care Product Introduction Manager Name Role Phone Carl Patton MD Primary Care Provider [phone] [phone] Encounter Details Date Type Department Care Team (Late st Contact Info) Description 12/30/2020 Transcribed Document [facility] [place] Family Medicine [facility] [place] [address] ProviderLucy MD [address] [place] [id number] Social History Tobacco Use Types Packs/Day Years [...] On: 12/30/2020 19:13 EDT by ANTONIO VICTOR, animal attendants and trainers Documentation Discharge Date/Time : 12/30/2020 19:20 EDT [...] 12/30/2020 19:13 EDT Electronically signed by Charlene [facility] Conversion Fruit Grader Cerner at 08/31/2022 10:42 PM CDT documented in this encounter Plan of Treatment Not on file documented as of this encounter Visit Diagnoses Not on filedocumented in this encounter Care Teams Product Introduction Manager Relationship Specialty Start Date End Date Carl Patton MD [address] [place] [address] PCP - General Family Medicine 06/03/23 documented as of this encounter
--- OUTSIDE RECORDS SUMMARY | 2024-12-27 07:59 | XMS_ITS | Encounter Summary ---
Author Organization [employer] ([place], [place], [place], [place]) Address [address] [place] [address] Care Team Providers Care Cementer Helper Name Role Phone Carl Patton MD Primary Care Provider [phone] Encounter Details Date Type Department Care Team (Late st Contact Info) Description 12/30/2020 Transcribed Document [facility] [place] Family Medicine [facility] [place] [address] ProviderLucy MD [address] [place] [address] Social History Tobacco Use Types Packs/Day [...] 12/30/2020 12:48 EDT Electronically signed by Charlene [facility] Conversion Cut Pressman Cerner at 08/31/2022 10:43 PM CDT documented in this encounter Plan of Treatment Not on file documented as of this encounter Visit Diagnoses Not on filedocumented in this encounter Care Teams Cementer Helper Relationship Specialty Start Date End Date Carl Patton MD [address] [place] [address] PCP - General Family Medicine 06/03/23 documented as of this encounter
--- OUTSIDE RECORDS SUMMARY | 2024-12-27 07:59 | XMS_ITS | Encounter Summary ---
Author Organization [employer] ([place], [place], [place], [place]) Address [address] [place] [address] Care Team Providers Care Bucket Chucker Name Role Phone Carl Patton MD Primary Care Provider [phone] Encounter Details Date Type Department Care Team (Late st Contact Info) Description 12/30/2020 Transcribed Document [facility] [place] [address] [place] [address] ProviderLucy MD [address] [place] [id number] Social History Tobacco Use Types Packs/Day Years [...] on filedocumented in this encounter Care Teams Bucket Chucker Relationship Specialty Start Date End Date Carl Patton MD [address] [place] [address] PCP - General Family Medicine 06/03/23 documented as of this encounter
--- OUTSIDE RECORDS SUMMARY | 2024-12-27 08:00 | XMS_ITS | Clinical Summary ---
Author Organization [employer] ([place], [place], [place], [place]) Address [address] [place] [address] Care Team Providers Care Risk Mgr Name Role Phone Carl Patton MD Primary Care Provider [phone] [phone] Allergies No known active allergies Medications lisinopriL [...] speak a language other than Bolivian at [place]? No 06/03/2023 Do you want help with [...] - 249 mg/dL 06/04/2023 9:21 AM EST [facility] Cholesterol 235(H) 0 - 199 mg/dL 06/04/2023 9:21 AM [facility] Comment: 200 to 239 mg/dL = Moderate (borderline) >239 mg/dL = High HDL Cholesterol 55 >=40 mg/dL 06/04/2023 9:21 AM EST [facility] Comment: >=60 mg/dL = Desirable <40 mg/dL = Increased Risk All other components are listed individually or are calculations VLDL Cholesterol 23.4 5 - 40 mg/dL 06/04/2023 9:21 AM EST [facility] Cholesterol/HDL ratio 4.3(H) 0.0 - 3.2 06/04/2023 9:21 AM EST [facility] LDl/HDL Ratio 3 0 - 4 06/04/2023 9:21 AM EST [facility] RISK COMP 4 06/04/2023 9:21 AM EST [facility] LDL Cholesterol, Calculated 157(H) 0 - 99 mg/dL 06/04/2023 9:21 AM EST [facility] Blood Venipuncture / Unknown 06/04/2023 8:35 AM EST 06/04/2023 8:53 AM EST us Matilde Welch MD LAB BLOOD ORDERABLES Sharyn bhakta Result [facility] [address] [phone] from Last 3 Months or Most Recently Relevant to Health Maintenance Insurance [place] [id number] BLUE CROSS/BLUE SHIELD Advance Directives For more information, please contact: [phone] * Full Code (Latest Code Status on File) Date Activated Date Inactivated Comments 06/06/2023 12:34 PM 06/07/2023 4:41 PM * Full Code Date Activated Date Inactivated Comments 06/03/2023 10:28 AM 06/06/2023 12:34 PM Care Teams Risk Mgr Relationship Specialty Start Date End Date Carl Patton MD [address] [place] [address] PCP - General Family Medicine 06/03/23
--- OUTSIDE RECORDS SUMMARY | 2024-12-27 08:00 | XMS_ITS | Clinical Summary ---
Author Organization [facility] Address [address] [place], [place] [id number] Phone [email or web address] Care Team Providers Care Waste Handling Technician Name Role Phone Noah Wagner Primary Care Provider [phone] Allergies No known active allergies Medications desipramine [...] Colonography 1965 Colonoscopy 1965 Colorectal Cancer Screening Combo 1965 DNA Cologuard 1965 Dental Cleaning/Exam 1965 FIT or FOBT Test 1965 HIV Screening 1965 Hepatitis C Screening 1965 Sigmoidoscopy 1965 Annual Preventive Exam 09/18/1981 Hep B Infection Screening - Triple Screen 09/18/1981 Covid-19 Immunization ( season) 2024 08/20/2020 Influenza Immunization (#1) 2025 10/0 10/2021, 02/25/2021, 03/04/2020, Additional history exists Tetanus Diphtheria and Pertussis Immunization (5 - Td or Tdap) 12/12/2031 12/11/2021, 04/13/2021, 07/25/2019, Additional history exists Pneumococcal: 65+ Years Discontinued 08/12/2022, 07/30 Pneumococcal: Ped (0 to 5 Yrs) and [...] OPT OUT NO COPAY NB Care Teams Waste Handling Technician Relationship Specialty Start Date End Date Noah Wagner [address] [place] [address] PCP - General Family Medicine 04/07/20
--- OUTSIDE RECORDS SUMMARY | 2024-12-27 08:00 | XMS_ITS | Clinical Summary ---
Author Organization [facility] Address [address] [place] [address] Care Team Providers Care Electronics Department Manager Name Role Phone Noah Wagner MD Primary Care Provider [phone] Allergies No known active allergies Medications metoprolol [...] 74 12/31/2019 10:31 AM EDT Temperature 36.6 C (97.8 F) 09/26/2020 1:28 PM EDT Respiratory Rate 18 12/31/2019 1:00 PM EDT Oxygen Saturation 97% 12/31/2019 1:00 PM EDT Inhaled Oxygen Concentration - - Weight 75 kg (165 lb 6.4 oz) 09/26/2020 1:28 PM EDT Height 172.7 cm (5' 8 ) 09/26/2020 1:28 PM EDT Body Mass Index 25.15 09/26/2020 1:28 PM EDT Plan of Treatment Health Maintenance Due Date Last Done Comments COLOGUARD 09/18/2008 COLON CANCER SCREENING 5 YEA R SIGMOIDOSCOPY 09/18/2008 COLONOSCOPY 09/18/2008 COLORECTAL CANCER SCREENING 09/18/2008 CT COLONOGRAPHY 09/18/2008 FECAL OCCULT BLOOD TEST 09/18/2008 FIT Testing (1 year) 09/18/2008 ANNUAL PHYSICAL 06/20/2018 HEPATITIS C SCREENING 06/20/2018 COVID-19 Vaccine (2 - 2023-2 5 season) 2024 08/20/2020 INFLUENZA VACCINE 02/13/2025 02/18/2022, , 03/04/2020, Additional history exists TDAP/TD VACCINES (5 - Td or Tdap) 12/12/2031 12/11/2021, 04/13/2021, 07/25/2019, Additional history exists Pneumococcal Vaccine 50+ Completed 08/12/2022, 07/14 ZOSTER VACCINE Completed 11/01/2022, 08/12/2022 Medical Devices Implanted Type Area Team Leader Device Identifier Shelf Expiration Date Model / Serial / Lot Implant Implant Description:Fusion cervical Kt Seal Hemos Abs Floseal Matrx Fast/Prep 10ml - [id number] Implanted:Qty : 1 on 12/31/2019 by Victoriano Perales MD at [facility] Implant N/A: Spine Cervical takokat [id number] / / Bone Lordotic Asr [id number] Fzd - [id number] - [id number] Implanted:Qty : 1 on 12/31/2019 by Victoriano Perales MD at [facility] Implant N/A: Spine Cervical [employer] A [employer] 07/23/2022 [id number] / [id number] / Scrw St Zevo 2thrd S/Tap 3.5x13mm - [id number] Implanted:Qty : 4 on 12/31/2019 by Victoriano Perales MD at [facility] Implant N/A: Spine Cervical [employer] [id number] / / Plt Acp Zevo 1lvl 17mm Ns - [id number] Implanted:Qty : 1 on 12/31/2019 by Victoriano Perales MD at [facility] Implant N/A: Spine Cervical [employer] [id number] / / [place] [address] [address] [place] [address] WORKERS COMPENSATION Care Teams Electronics Department Manager Relationship Specialty Start Date End Date Noah Wagner MD [address] [place] [address] PCP - General Family Medicine 11/05/15
--- OUTSIDE RECORDS SUMMARY | 2024-12-27 08:00 | XMS_ITS | Encounter Summary ---
Author Organization [employer] ([place], [place], [place], [place]) Address [address] [place] [address] Care Team Providers Care Sliver Cutter Name Role Phone Stanislaw Martinez MD Primary Care Provider [phone] Encounter Details Date Type Department Care Team (Late st Contact Info) Description 07/06/2021 Transcribed Document [facility] [place] Family Medicine [address] [place] [address] ProviderLucy MD [address] [place] [address] Social History Tobacco Use Types [...] Do you speak a language other than Monegasque at [facility]? No 06/03/2023 Do you want help [...] - Historical Provider, - 07/06/2021 12:08 PM LOSS PREVENTION OPERATIONS MANAGER [address] [place] [address] PERSON INFORMATION Name МАРИНА HALL Age 55 Years 1965 Sex Male Language Monegasque PCP STANISLAW MARTINEZ MD-[facility] Marital Status Single Med Service Emergency Medicine Acct# Arrival 01/12/2021 11:39:00 Visit Reason Chest pain; CP SINCE TUESDAY Acuity 2 - Emergent LOS 000 06:23 Depart Date: 01/12/21 06:02 PM Address: [address] [place] [address] [place] [address] Comment: PROVIDER INFORMATION DIAGNOSIS PHYS DOC NOTES [...] When: STANISLAW MARTINEZ [address] [facility] [address] [place] [address] Business (1) Within 2 to 3 days Comment: documented in this encounter Plan of Treatment Not on file documented as of this encounter Visit Diagnoses Not on filedocumented in this encounter Care Teams Sliver Cutter Relationship Specialty Start Date End Date Stanislaw Martinez MD [address] [facility] [address] [place] [address] PCP - General Family Medicine 06/03/23 documented as of this encounter
--- OUTSIDE RECORDS SUMMARY | 2024-12-27 08:00 | XMS_ITS | Encounter Summary ---
Author Organization [employer] ([place], [place], [place], [place]) Address [address] [place] [address] Care Team Providers Care Softball Core Molder Name Role Phone Carl Patton MD Primary Care Provider [phone] Reason for Visit * Reason Comments Medication Refill Encounter Details Date Type Department Care Team (Late st Contact Info) Description 09/25/2024 Refill [facility] Cardiology [address] [place] [address] Helena Romero MD [address] [facility] [address] [place] [address] Social History Tobacco Use Types Packs/Day Years [...] Do you speak a language other than Tanzanian at [facility]? No 06/03/2023 Do you want help with [...] on filedocumented in this encounter Care Teams Softball Core Molder Relationship Specialty Start Date End Date Carl Patton MD [address] [place] [address] PCP - General Family Medicine 06/03/23 documented as of this encounter
--- OUTSIDE RECORDS SUMMARY | 2024-12-27 08:00 | XMS_ITS | Encounter Summary ---
Author Organization [employer] ([place], [place], [place], [place]) Address [address] [place] [address] Care Team Providers Care Tool Maintenance Worker Name Role Phone Carl Patton MD Primary Care Provider [phone] [phone] Encounter Details Date Type Department Care Team (Late st Contact Info) Description 01/12/2021 Transcribed Document [facility] [place] [address] ProviderLucy MD [address] [place] [address] [id number] Social History Tobacco Use Types Packs/Day Years [...] : 2 - Emergent Tracking Group : [facility] ED SONDRA BAEZA RN - [...] 11:59:15 EDT) Problems(Active) Allergic rhinitis (SNOMED CT :297024247 ) Name of Problem: Allergic rhinitis ; Recorder: COLLIN AVERY RN; Confirmation: Confirmed ; Classification: Patient Stated ; Code: 212688144 ; Contributor System: Nexio ; Last Updated: 12/30/2020 8:57 EDT ; Life Cycle Date: 12/30/2020 ; Life Cycle Status: Active ; Vocabulary: SNOMED CT At risk for sleep apnea (IMO :45093497 ) Name of Problem: At risk for sleep apnea ; Recorder: SYSTEM, SYSTEM; Confirmation: Confirmed ; Classification: Medical ; Code: 33832050 ; Last Updated: 12/30/2020 9:12 EDT ; Life Cycle Date: 12/30/2020 ; Life Cycle Status: Active ; Vocabulary: IMO Chest pain (SNOMED CT :15281494 ) Name of Problem: Chest pain ; Recorder: COLLIN AVERY RN; Confirmation: Confirmed ; Classification: Patient Stated ; Code: 96845744 ; Contributor System: PowerChart ; Last Updated: 12/30/2020 9:00 EDT ; Life Cycle Date: 12/30/2020 ; Life Cycle Status: Active ; Vocabulary: SNOMED CT COPD, moderate (SNOMED CT :593108529 ) Name of Problem: COPD, moderate ; Recorder: NEERAJ HAYWARD RN; Confirmation: Confirmed ; Classification: Patient Stated ; Code: 255000926 ; Contributor System: PowerChart ; Last Updated: 09/05/2014 7:33 EDT ; Life Cycle Date: 09/05/2014 ; Life Cycle Status: Active ; Vocabulary: SNOMED CT Fatigue (SNOMED CT :033810471 ) Name of Problem: Fatigue ; Recorder: COLLIN AVERY RN; Confirmation: Confirmed ; Classification: Patient Stated ; Code: 009962562 ; Contributor System: PowerChart ; Last Updated: 12/30/2020 9:01 EDT ; Life Cycle Date: 12/30/2020 ; Life Cycle Status: Active ; Vocabulary: SNOMED CT GERD - Gastro-esophageal reflux disease (SNOMED CT :8651341945 ) Name of Problem: GERD - Gastro-esophageal reflux disease ; Recorder: COLLIN AVERY RN; Confirmation: Confirmed ; Classification: Patient Stated ; Code: 5503761937 ; Contributor System: PowerChart ; Last Updated: 12/30/2020 8:58 EDT ; Life Cycle Date: 12/30/2020 ; Life Cycle Status: Active ; Vocabulary: SNOMED CT HTN (hypertension) (SNOMED CT :2365343768 ) Name of Problem: HTN (hypertension) ; Recorder: FAUSTINO BARNETT MD; Confirmation: Confirmed ; Classification: Medical ; Code: 6444451132 ; Contributor System: PowerChart ; Last Updated: 08/27/2014 11:22 EDT ; Life Cycle Date: 08/27/2014 ; Life Cycle Status: Active ; Responsible Provider: FAUSTINO BARNETT MD; Vocabulary: SNOMED CT Shortness of breath (SNOMED CT :889590352 ) Name of Problem: Shortness of breath ; Recorder: COLLIN AVERY RN; Confirmation: Confirmed ; Classification: Patient Stated ; Code: 131389305 ; Contributor System: Nexio ; Last Updated: 12/30/2020 9:01 EDT ; Life Cycle Date: 12/30/2020 ; Life Cycle Status: Active ; Vocabulary: SNOMED CT Smoker (SNOMED CT :607194113 ) Name of Problem: Smoker ; Recorder: COLLIN AVERY RN; Confirmation: Confirmed ; Classification: Patient Stated ; Code: 492398850 ; Contributor System: Nexio ; Last Updated: 12/30/2020 8:57 EDT ; Life Cycle Date: 12/30/2020 ; Life Cycle Status: Active ; Vocabulary: SNOMED CT Diagnoses(Active) Chest pain Date: 01/12/2021 ; Diagnosis Type: Reason For Visit ; Confirmation: Complaint of ; Clinical Dx: Chest pain ; Classification: Medical ; Clinical Service: Non-Specified ; Code: PNED ; Probability: 0 ; Diagnosis Code: [id number] ED Height and Weight Height Source : Stated Height Entry Format : [place] Height, Feet : 5 ft(Converted to: 152 cm, 60 Inch) Height, Inches : 8 Inch(Converted to: 0 ft 8 Inch, 20.32 cm) Clinical Height : 172.72 cm Weight Source, ED : Critical estimated dosing weight Weight Entry Format : [place] Weight, Pounds : 165 lb Clinical Dosing Weight : 75 kg Body Surface Area (BSA) : 1.89 m2 Body Mass Index : 25.1 kg/m2 ([place]) [place] Body Weight (IBW) : 67.45 kg SONDRA [...] on filedocumented in this encounter Care Teams Tool Maintenance Worker Relationship Specialty Start Date End Date Carl Patton MD [address] [place] [address] PCP - General Family Medicine 06/03/23 documented as of this encounter
--- OUTSIDE RECORDS SUMMARY | 2024-12-27 08:00 | XMS_ITS | Encounter Summary ---
Author Organization [employer] ([place], [place], [place], [place]) Address [address] [place] [address] Care Team Providers Care Art Objects Repairer Name Role Phone Carl Patton MD Primary Care Provider [phone] Reason for Visit * Reason Comments Medication Refill Encounter Details Date Type Department Care Team (Late st Contact Info) Description 08/30/2024 Refill [facility] Cardiology [address] [place] [address] Helena Romero MD [address] [facility] [address] [place] [address] Social History Tobacco Use Types Packs/Day Years [...] Do you speak a language other than Uzbek at [facility]? No 06/03/2023 Do you want help with [...] on filedocumented in this encounter Care Teams Art Objects Repairer Relationship Specialty Start Date End Date Carl Patton MD [address] [place] [address] PCP - General Family Medicine 06/03/23 documented as of this encounter
--- OUTSIDE RECORDS SUMMARY | 2024-12-27 08:00 | XMS_ITS | Referral Summary ---
Author Organization [employer] ([place], [place], [place], [place]) Address [address] [place] [address] Care Team Providers Care Conditioning Coach Name Role Phone Carl Patton MD Primary Care Provider [phone] [phone] Allergies No known active allergies Medications lisinopriL [...] you speak a language other than [place] at [place]? No 06/03/2023 Do you want help with [...] 0 - 249 mg/dL 06/04/2023 9:21 AM [facility] Cholesterol 235(H) 0 - 199 mg/dL 06/04/2023 9:21 AM EST [facility] Comment: 200 to 239 mg/dL = Moderate (borderline) >239 mg/dL = High HDL Cholesterol 55 >=40 mg/dL 06/04/2023 9:21 AM [facility] Comment: >=60 mg/dL = Desirable <40 mg/dL = Increased Risk All other components are listed individually or are calculations VLDL Cholesterol 23.4 5 - 40 mg/dL 06/04/2023 9:21 AM [facility] Cholesterol/HDL ratio 4.3(H) 0.0 - 3.2 06/04/2023 9:21 AM EST [facility] LDl/HDL Ratio 3 0 - 4 06/04/2023 9:21 AM EST [facility] RISK COMP 4 06/04/2023 9:21 AM EST [facility] LDL Cholesterol, Calculated 157(H) 0 - 99 mg/dL 06/04/2023 9:21 AM EST [facility] Blood Venipuncture / Unknown 06/04/2023 8:35 AM EST 06/04/2023 8:53 AM EST us Matilde Welch MD LAB BLOOD ORDERABLES Sharyn bhakta Result [facility] [address] [phone] from Last 3 Months or Most Recently Relevant to Health Maintenance Insurance [address] [id number] BLUE CROSS/BLUE SHIELD Advance Directives For more information, please contact: [phone] * Full Code (Latest Code Status on File) Date Activated Date Inactivated Comments 06/06/2023 12:34 PM 06/07/2023 4:41 PM * Full Code Date Activated Date Inactivated Comments 06/03/2023 10:28 AM 06/06/2023 12:34 PM Care Teams Conditioning Coach Relationship Specialty Start Date End Date Carl Patton MD [address] [place] [address] PCP - General Family Medicine 06/03/23
--- OUTSIDE RECORDS SUMMARY | 2024-12-27 08:00 | XMS_ITS | Encounter Summary ---
Author Organization [employer] ([place], [place], [place], [place]) Address [address] [place] [address] Care Team Providers Care Guardian Family Member Name Role Phone Carl Patton MD Primary Care Provider [phone] [phone] Reason for Referral * CAT Scan (Routine) - Closed Specialty Diagnoses / Procedures Referred By Contac t Referred To Contact Radiology Diagnoses Chronic kidney disease, unspecified CKD stage Procedures CTA abdomen & pelvis John Douglas MD [address] [place] [address] Phone: tel: fax: Referral ID Status Reason Start Date Expiration Date Visits Re quested Visits Authorized [id number] Closed 03/22/2024 04/20/2024 1 1 Encounter Details Date Type Department Care Team (Late st Contact Info) Description 03/22/2024 Outside Orders [facility] Central Scheduling [address] [place] [address] John Douglas MD [address] [place] [address] Chronic kidney disease, unspecified CKD stage (Primary [...] speak a language other than Belarusian at [facility]? No 06/03/2023 Do you want help [...] Primary documented in this encounter Care Teams Guardian Family Member Relationship Specialty Start Date End Date Carl Patton MD [address] [place] [address] PCP - General Family Medicine 06/03/23 documented as of this encounter
--- OUTSIDE RECORDS SUMMARY | 2024-12-27 08:00 | XMS_ITS | Clinical Summary ---
Author Organization [facility] Address [address] [place] [address] Care Team Providers Care Sports Management Intern Name Role Phone System, Provider Not In MD Primary Care Provider Unavailable Allergies Active Allergy Reactions Criticality Noted Date Comments Hydroxyzine Other - please docum ent in the comment field Low 12/04/2024 Medications acetaminophen (Tylenol) 325 MG tablet Take by mouth every 6 hours as needed. Active amLODIPine (Norvasc) 5 MG tablet 1 (one) time each day at the same time. Active atorvastatin (Lipitor) 40 MG tablet Take 1 tablet by mouth. Active Plavix 75 MG tablet 1 (one) time each day at the same time. Active esomeprazole (NexIUM) [address] capsule 1 (one) time each day at the same time. Active ferrous gluconate (Fergon) 324 (38 Fe) MG tablet Take 1 tablet by mouth daily. 4 Active ferrous sulfate 325 (65 Fe) MG tablet Take 1 tablet by mouth 2 times a day. Active irbesartan (Avapro) 150 MG tablet 1 (one) time each day at the same time. 4 Active metoclopramide (Reglan) 10 MG tablet TAKE 1 TABLET BY MOUTH BEFORE MEAL(S) ADMINISTER 30 MINUTES BEFORE MEALS 5 Active sucralfate (Carafate) 1 g tablet every 12 hours. 5 Active ipratropium (Atrovent) 0.06 % nasal sprayIndications :Vasomotor rhinitis Administer 2 sprays into each nostril 3 times a day for 21 days. 15 mL 5 Active famotidine (Pepcid) 20 MG tabletIndication s:Gastroesophage al reflux disease, unspecified whether esophagitis present Take 1 tablet by mouth nightly. 90 tablet 3 Active Active Problems No known active problems Encounters Date Type Department Care Team Description 12/04/2024 9:50 AM EDT Consult [facility] Otolaryngology [address] [place] [address] Bhupinder Ardon MD Vasomotor rhinitis (Primary Dx); Gastroesophageal reflux disease, unspecified whether esophagitis present; Dyspepsia; Unintentional weight loss; Dysphagia, unspecified type; Current smoker 12/04/2024 Travel from Last 3 Months Social History [...] Mass Index 22.12 12/04/2024 9:28 AM EDT Plan of Treatment Upcoming Encounters Date Type Department Care Team (Late st Contact Info) Description 01/15/2025 4:10 PM EDT Office Visit [facility] Otolaryngology [address] [place] [address] Bhupinder Ardon MD [address] [place] [address] Health Maintenance Due Date Last Done Comments [facility]-Depression Screening 1963 [facility]-HIV Screening 1963 [facility]-Hepatitis C Screening 1965 [facility]-Infant/Child/Adol SDOH Screenings 1963 [facility]- SDOH Screenings 09/18/1981 [facility]-Adult SDOH Screenings 09/18/1981 CT Colonography 09/18/2008 Colonoscopy 09/18/2008 FIT-DNA 09/18/2008 FIT 09/18/2008 FOBT 09/18/2008 Sigmoidoscopy 09/18/2008 [facility]-Colorectal Cancer Screening 09/18/2008 [id number] Vaccine ( season) 2024 08/20/2020 [facility]-Influenza Vaccine (#1) 01/14/202502/18, 02/25/2021, 03/04/2020, Additional history exists [facility]-DTaP,Tdap,and Td Vaccines (5 - Td or Tdap) 12/12/2031 12/11/2021, 04/13/2021, 07/25/2019, Additional history exists [facility]-RSV Vaccine: 60+ Years or (1 - 1-dose 75+ series) 09/18/2038 [facility]-Pneumococcal Vaccine: 50+ Years Completed 08/12/2022, 07/30/2016 [facility]-Zoster Vaccines Completed 11/01/2022, 3 HPV Vaccines Aged Out No longer eligi [...] complete this topic Insurance [employer] Care Teams Sports Management Intern Relationship Specialty Start Date End Date System, Provider Not In[place] [address] PCP - General Family Medicine 12/04/24
--- OUTSIDE RECORDS SUMMARY | 2024-12-27 08:00 | XMS_ITS | Encounter Summary ---
Author Organization [employer] ([place], [place], [place], [place]) Address [address] [place] [address] Care Team Providers Care Planer Offbearer Name Role Phone Carl Patton MD Primary Care Provider [phone] [phone] Encounter Details Date Type Department Care Team (Late st Contact Info) Description 01/13/2021 Transcribed Document [facility] [place] [address] ProviderLucy MD [address] [place] [address] Social History Tobacco Use Types Packs/Day [...] further action required Electronically signed by [facility] Conversion Criminal Justice Teacher Cerner at 08/31/2022 10:29 PM CDT documented in this encounter Plan of Treatment Not on file documented as of this encounter Visit Diagnoses Not on filedocumented in this encounter Care Teams Planer Offbearer Relationship Specialty Start Date End Date Carl Patton MD [address] [place] [address] PCP - General Family Medicine 06/03/23 documented as of this encounter
--- OUTSIDE RECORDS SUMMARY | 2024-12-27 08:00 | XMS_ITS | Encounter Summary ---
Author Organization [employer] ([place], [place], [place], [place]) Address [address] [place] [address] Care Team Providers Care Lieutenant Governor Name Role Phone Carl Patton MD Primary Care Provider [phone] [phone] Reason for Visit * Reason Comments Medication Refill Encounter Details Date Type Department Care Team (Late st Contact Info) Description 09/21/2024 Refill [facility] Cardiology [address] [place] [address] Helena Romero MD [address] [facility] [address] [place] [address] Social History Tobacco Use Types Packs/Day Years [...] Do you speak a language other than Emirati at [facility]? No 06/03/2023 Do you want help [...] on filedocumented in this encounter Care Teams Lieutenant Governor Relationship Specialty Start Date End Date Carl Patton MD [address] [place] [address] PCP - General Family Medicine 06/03/23 documented as of this encounter
--- OUTSIDE RECORDS SUMMARY | 2024-12-27 08:00 | XMS_ITS | Encounter Summary ---
Author Organization [facility] Address [address] [place] [address] Care Team Providers Care Provider Network Mgr Name Role Phone System, Provider Not In MD Primary Care Provider Unavailable Encounter Details Date Type Department Care Team (Latest Contact Info) Description 12/04/2024 Travel Social History Tobacco Use Types Packs/Day Years Used Date Smoking Tobacco: Some Days Cigarettes Smokeless Tobacco: Never Alcohol Use Standard Drinks/Week Comments Never 0 [...] on file documented as of this encounter Functional Status * AUDIT-C Score Answer Date of Assessment Author 0 12/04/2024 9:28 AM Blanca Mays * Question Answer Date of Assessment Author Q1: How often do you have a drink containing alcohol? Never 12/04/2024 9:28 AM Gamaliel Mays Q2: How many drinks containing alcohol do you have on a typical day when you are drinking? Patient does not drink 12/04/2024 9:28 AM Gamaliel Mays Q3: How often do you have six or more drinks on one occasion? Never 12/04/2024 9:28 AM Gamaliel Mays documented as of this encounter Plan of Treatment Upcoming Encounters Date Type Department Care Team (Late st Contact Info) Description 01/15/2025 4:10 PM EDT Office Visit [facility] Otolaryngology [address], [address] [place] [address] Bhupinder Ardon MD [address] [place] [address] documented as of this encounter Visit Diagnoses Not on filedocumented in this encounter Additional Health Concerns Assessment Noted Time A fall risk assessment has been complete d for the patient 12/04/2024 9:29 AM EDT A Body Mass Index follow-up plan has been documented for the patient 12/05/2024 7:22 PM EDT documented as of this encounter Care Teams Provider Network Mgr Relationship Specialty Start Date End Date System, Provider Not In, [place] [address] PCP - General Family Medicine 12/04/24 documented as of this encounter
--- OUTSIDE RECORDS SUMMARY | 2024-12-27 08:00 | XMS_ITS | Encounter Summary ---
Author Organization [employer] ([place], [place], [place], [place]) Address [address] [place] [address] Care Team Providers Care Furniture Repair Technician Name Role Phone Carl Patton MD Primary Care Provider [phone] [phone] Encounter Details Date Type Department Care Team (Late st Contact Info) Description 01/18/2021 Transcribed Document [facility] Cardiology [address] [place] [address] [place] [address] [place] [address] [address] [place] [address] Social History Tobacco Use Types Packs/Day Years [...] 1. Normal study. 2. Ejection fraction 63%. /[id number] Helena Romero MD NMF/AQ / NMF / MODL /[id number] documented in this encounter Plan of Treatment Not on file documented as of this encounter Visit Diagnoses Not on filedocumented in this encounter Care Teams Furniture Repair Technician Relationship Specialty Start Date End Date Carl Patton MD [address] [place] [address] PCP - General Family Medicine 06/03/23 documented as of this encounter
--- OUTSIDE RECORDS SUMMARY | 2024-12-27 08:00 | XMS_ITS | Patient Health Record ---
Author Organization [facility] Address [address] [facility] 36 [facility] [address] [place] [id number] Care Team Providers Care In Service Educator Name Role Phone Elodia Patton Primary Care Provider [phone] Shawn Mcgee Unavailable [phone] Shanda Fu Unavailable [phone] Allergies Allergen (clinical drug ingredient) Drug/Non Drug [...] Interpretation:191 Performing Lab: Notes/Report: Test performed by [facility] [address] [place], [place] [email or web address] [place] , [address], [place] [address] Marcus Gunderson MD, Head Greenskeeper CLIA: [id number] Amylase 191 28-100 U/L P-Comprehensive Metabolic Pa quita (CMP) Reviewed date:10/26/2024 10:54:13 AM Interpretation:Na 132, Chl 93, Creat 1.72, Parmjit 10.8, eGFR 45 Performing Lab: Notes/Report: Test performed by [facility] [address] [place] [address] , [address], [place] [address] Marcus Gunderson MD, Head Greenskeeper CLIA: [id number] Sodium 132 135-145 mmol/L Potassium 4.6 3.5-5.3 [...] 0.3 <0.2-1.2 mg/dL A/G Ratio 2.0 1.1-2.5 A-P-Rcfoibsy Protein (CRP) Reviewed date:10/26/2024 10:54:13 AM Interpretation:Normal Performing Lab: Notes/Report: Test performed by [facility] [address] , [place] [address] Marcus Gunderson MD, Head Greenskeeper CLIA: [id number] C-Reactive Protein (CRP) 0.26 <0.50 mg/dL P-Sed Rate (ESR) Reviewed date:10/26/2024 10:54:13 AM Interpretation:Normal Performing Lab: Notes/Report: Test performed by [facility] [address] , [place] [address] Marcus Gunderson MD, Head Greenskeeper CLIA: [id number] Erythrocyte Sedimentation Rate (ESR), Automated 5 <21 mm/hr P-Lipase Reviewed date:10/26/2024 10:54:13 AM Interpretation:154.1 Performing Lab: Notes/Report: Test performed by [facility] [address] , [address], [place] [address] Marcus Gunderson MD, Head Greenskeeper CLIA: [id number] Lipase 154.1 13.0-60.0 u/L P-TSH reflex to FT4 Reviewed date:10/26/2024 10:54:13 AM Interpretation:Normal Performing Lab: Notes/Report: Test performed by [facility] [address] [place] [address] , [place] [address] Marcus Gunderson MD, Head Greenskeeper CLIA: [id number] TSH reflex to FT4 1.88 0.43-5.25 mU/L Carotid Duplex Reviewed date:11/26/2024 02:37:43 PM Interpretation:Abnormal Performing Lab: Notes/Report: Abnormal CBC Fingerstick (in house) Reviewed date:12/18/2024 11:10:34 [...] Interpretation:satisfactory Performing Lab: Notes/Report: Test performed by [facility] [address] [place] [address] , [address], [place] [address] Marcus Gunderson MD, Head Greenskeeper CLIA: [id number] Sodium 134 135-145 mmol/L Potassium 3.5 3.5-5.3 mmol/L Chloride 99 97-108 mmol/L CO2 25 20-32 mmol/L Glucose 115 65-99 mg/dL BUN 8 8-23 mg/dL Creatinine 1.30 0.70-1.30 mg/dL Calcium 8.9 8.6-10.4 mg/dL eGFR by Creatinine 62 >59 mL/min/1.73m2 H-Hemoglobin/Hematocrit Reviewed date:11/09/2024 11:55:49 AM Interpretation: Performing Lab: Notes/Report: HGB 8.7 14.1-18.0 g/dL Delta: 7.5 on 11/06/24-0709 HCT 25.1 42.0-52.0 % H-Cortisol Reviewed date:11/09/2024 11:55:48 AM Interpretation: Performing Lab: Notes/Report: BROWN 14.2 6.2-19.4 ug/dL Please Note: The reference interval and flagging for this test is for an AM collection. If this is a PM collection please use: Cortisol PM: 2.3-11.9 Performed at: [facility] [id number] Religious Studies Professor: Jaime Jung PhD, Phone: [phone] H-Hemoglobin/Hematocrit Reviewed date:11/09/2024 11:55:48 AM Interpretation: Performing Lab: Notes/Report: Comment: STAT HGB 8.7 14.1-18.0 g/dL HCT 25.7 42.0-52.0 % H-CBC Reviewed date:11/09/2024 11:55:48 AM Interpretation: Performing Lab: Notes/Report: WBC 8.7 4.8-10.8 K/mm3 Delta: 13.7 o n 11/06/24-09 RBC 2.75 4.60-6.20 M/mm3 HGB 8.1 14.1-18.0 g/dL HCT 23.5 42.0-52.0 % MCV 85.5 80-94 fl MCH 29.5 27.0-31.2 pg MCHC 34.5 31.8-35.4 g/dL RDW-SD 43.1 RDW 13.9 11.5-17.5 % PLT 268 142-424 K/mm3 Delta: 398 on 11/06/24-708 MPV 9.5 7.4-10.4 fl NE% 72.0 37.0-80.0 [...] NRBC# 0 IG# 0.15 H-Hemoglobin/Hematocrit Reviewed date:11/09/2024 11:55:48 AM Interpretation: Performing Lab: Notes/Report: HGB 9.6 14.1-18.0 g/dL Delta: 7.4 on 11/08/24-0500 HCT 27.7 42.0-52.0 % P-Basic Metabolic Panel (BMP ) Reviewed date:01/19/2024 08:27:07 AM Interpretation: Performing Lab: Notes/Report: Test performed by [facility] [employer] [facility] , [address], [place] [address] Marcus Gunderson MD, Head Greenskeeper CLIA: [id number] Sodium 138 135-145 mmol/L Potassium 4.1 3.5-5.3 mmol/L Chloride 99 97-108 mmol/L CO2 27 22-32 mmol/L Glucose 106 65-99 mg/dL BUN 12 8-23 mg/dL Creatinine 1.66 0.70-1.30 mg/dL Calcium 9.1 8.6-10.4 mg/dL eGFR by Creatinine 47 >59 mL/min/1.73m2 Urinalysis - Inhouse Reviewed date:08/21/2024 12:48:50 PM [...] 03:27:37 PM Interpretation: Performing Lab: Notes/Report: CBC Fingerstick (in house) Reviewed date:07/31/2024 10:05:54 [...] Interpretation:Normal Performing Lab: Notes/Report: Test performed by [facility] [address] [place] [address] , [place] [address] Marcus Gunderson MD, Head Greenskeeper CLIA: [id number] Allergen, Food, Alpha Galactose (Alpha-Gal) IgE <0.1 <0.10-0.34 kU/L Allergy Footnotes Reviewed date:08/08/2024 05:14:55 PM Interpretation:Normal Performing Lab: Notes/Report: Test performed by [facility] [address] [place] [address] , [address], [place] [address] Marcus Gunderson MD, Head Greenskeeper CLIA: [id number] Allergy Footnotes SEE COMMENT Reference Ranges and [...] >=50.00 kU/L Very high level of sensitization H-CBC Reviewed date:01/12/2024 08:40:54 AM Interpretation:rbc 4.21, [...] SHARE RESULTS OF CMP WITH DONN MANNING NA 133 136-145 mmol/L K 3.8 3.5-5.1 [...] WITH DONN MANNING NATY 10.1 17.9-464 ng/ml H-Iron Reviewed date:01/12/2024 08:40:54 AM Interpretation:37 Performing Lab: Notes/Report: SHARE RESULTS OF CMP WITH DONN MANNING FE 37 49-181 ug/dL H-UA Reviewed date:11/06/2024 01:28:38 PM Interpretation: Performing [...] 3-5 0-5 #/hpf UBACT Trace NONE /lpf H-Urea Breath Test Reviewed date:04/25/2024 09:05:13 AM Interpretation:Negative Performing Lab: Notes/Report: Patient Height (inches): 58.00 Patient Weight (pounds): 142 HPYBREATHR Negative Negative Performed at: [facility] [employer] [id number] Religious Studies Professor: Jaime Jung PhD, Phone: [phone] H-Food Allergy Profile Reviewed date:04/25/2024 09:05:24 AM [...] SESAMEP <0.10 Class 0 kU/L Performed at: - [facility] [address] [id number] Religious Studies Professor: Aleida Russell MD, Phone: [phone] Reason For Referral Reason Iron infusions due t o low iron level Diagnosis 1 Iron deficiency (E61 .1) [facility] Referring Provider First Name Shanda Referring Provider Last Name Tank Referring Provider Speciality Physician Installer Soft Top Referred Provider Specialty Hematology General Notes Dimple Berg 01/12/20 11:57:59 AM > faxed referral and labs to [facility] Oncology Referral Priority Routine Diagnosis 1 Esophageal dysphagia (R13.19) [facility] Referring Provider First Name Shanda Referring Provider Last Name Tank Referring Provider Speciality Physician Installer Soft Top Referred Provider Gastroenterology, . Referred Provider Specialty Gastroentero logy General Notes Shanda Fu 04/19 3:56:09 PM > Needs first available with Dr. Vinson.Morena Brynn 04/19/2024 4:04:05 PM > faxed to Morena Wallace Brynn 04/23/2024 10:39:20 AM > 05/02/2024 at 03:30pm Referral Priority Routine Reason Follow up Diagnosis 1 Esophageal dysmotili ty (K22.4) Referral Organization [facility] Referring Provider First Name Elodia Jeffrey Referring Provider Last Name Abdi Referring Provider [facility] ctice Referred Organization [facility] OP Referred Provider SINDY VINSON Referred Address [address] [place] [address] [id number], Referred Provider Specialty Gastroentero logy General Notes Dimple Berg 2024 04:12:32 PM > faxed to Dr. Vinson Referral Priority Routine Reason follow-up. ACTUALLY HAS APPT IN . CAROTID STENOSIS IS NEW FINDING THAT NEEDS TO BE ADDRESSED Diagnosis 1 Status post coronary artery stent placement (Z95.5) Referral Organization [facility] Referring Provider First Name Elodia Jeffrey Referring Provider Last Name Abdi Referring Provider [facility] ctice Referred Provider Александр Barillas Referred Provider Specialty Cardiovascul ar Disease General Notes Dimple Berg 2024 04:02:41 PM > faxed to [facility] Cardiology Referral Priority Routine Medications Medication SIG (Take, Route, Frequency, Duration) Notes Start Date End Date Status Pramipexole Dihydrochloride 0.125 MG 1 tablet Orally Once a day; Duration: 90 days 10/25/2024 Active Nitroglycerin 0.4 MG 1 tab(s) sublingual ly every 5 minutes Active Isosorbide Mononitrate ER 60 MG 1 tablet in the morning Orally Once a day Not-Taking Iberogast - as directed Orally Not-Taking Escitalopram Oxalate 10 MG 1 tablet Oral ly Once a day; Duration: 30 days 12/17/2024 Active Irbesartan 150 MG 1 tablet Orally Once a day; Duration: 30 day(s) Active Align - as directed Orally N ot-Taking Atorvastatin Calcium 40 MG 1 tablet Oral ly Once a day Active Voquezna 20 MG 1 tablet Orally Once a day; Duration: 30 day(s) Not-Taking Sucralfate 1 GM/10ML 10 mL Orally 3 time s a day Active amLODIPine Besylate 5 MG 1 tablet Orally Once a day; Duration: 90 days Not-Takin g Ferrous Sulfate 325 (65 Fe) MG 1 tablet Orally twice a day Active Librax 5-2.5 MG 1 capsule before cortney ls Orally Three times a day; Duration: 30 days 07/30/2024 Not-Takin g Esomeprazole Magnesium 40 MG 1 capsule 1/2 to 1 hour before morning meal Orally Once a day Active Sucralfate 1 GM 2 Orally Twice a day ; Duration: 30 days 07/30/2024 Not-Taking Metoprolol Succinate ER 50 MG 1/2 tab Not-Taking Pantoprazole Sodium 40 MG 1 tablet Orall y Once a day Not-Taking Metoclopramide HCl 5 MG 1 tablet before meals Orally three times a day as needed; Duration: 30 days 08/20/2024 Active Plavix 75 MG 1 tablet Orally Once a day; Duration: 30 day(s) Active Immunizations Vaccine Route Administration Date Status Comme [...] W/U Status Risk Notes Problem Essential hypertension (06920871) Essential (primary) hypertension (I10) Active confirmed Problem Coronary arteriosclerosis (71444725) ASCVD (arteriosclerotic cardiovascular disease) (I25.10) Active confirmed Problem Vitamin D deficiency (42442051) Vitamin D deficiency (E55.9) Active confirmed Problem Vitamin B12 deficiency (158641874) Vitamin B12 deficiency (E53.8) Active confirmed Problem Essential hypertension (62226567) Essential hypertension (I10) Active confirmed Problem Hypertriglyceridemia (622537834) Hypertriglyceridemia (E78.1) Active confirmed Problem Acute non-ST segment elevation myocardial infarction (595498053) NSTEMI (non-ST elevated myocardial infarction) (I21.4) Active confirmed Problem Dyspepsia (961961725) Dyspepsia (K30) Active co nfirmed Problem Dysphagia (66407559) Dysphagia (R13.10) Active confirmed Problem Hypomagnesemia (037776089) Hypomagnesemia (E83.42) Active confirmed Problem Ischemic cardiomyopathy (359107522) Ischemic cardiomyopathy (I25.5) Active confirmed Problem Chronic rhinitis (61975259) Chronic rhinitis (J31.0) Active confirmed Problem Restless legs (22132312) Restless leg (G25.81) Active confirmed Problem Reactive depression (situational) (23852252) Situational depression (F43.21) Active confirmed Problem Renal insufficiency (634821983) Renal insufficiency (N28.9) Active confirmed Problem Gastroesophageal reflux disease (disorder) (043130502) Chronic GERD (K21.9) Active confirmed Problem COPD - Chronic obstructive pulmonary disease (31108275) Chronic obstructive pulmonary disease, unspecified COPD type (J44.9) Active confirmed Problem Gastroesophageal reflux disease with esophagitis (disorder) (830266713) GERD with esophagitis (K21.0) Active confirmed Problem History of placement of stent for coronary artery disease (situation) (400067790) Status post coronary artery stent placement (Z95.5) Active confirmed Problem Obstructive sleep apnea syndrome (03805311) SMOOTH (obstructive sleep apnea) (G47.33) Active confirmed Problem Hyperlipidaemia (16673258) Hyperlipidemia, unspecified hyperlipidemia type (E78.5) Active confirmed Problem Occlusion and stenosis of multiple and bilateral cerebral arteries (042005779) Carotid stenosis, bilateral (I65.23) Active confirmed Problem Esophageal spasm (99648658) Esophageal spasm (K22.4) Active confirmed Problem Atherosclerotic hear t disease of afogn[place] coronary artery without angina pectoris (978877201727812) Atherosclerosis of afogn[place] coronary artery without angina pectoris, unspecified whether afogn[place] or transplanted heart (I25.10) Active confirmed Problem Atrophic gastritis (82531060) Chronic gastritis without bleeding, unspecified gastritis type (K29.50) Active confirmed Problem Esophageal dysmotility (678463036) Esophageal dysmotility (K22.4) Active confirmed Problem Oropharyngeal dysphagia (56635161) Oropharyngeal dysphagia (R13.12) Active confirmed Problem Hearing loss (88453677) Bilateral hearing loss, unspecified hearing loss type (H91.93) Active confirmed Problem Renal artery stenosi s (645516696) Renal artery stenosis (I70.1) Active confirmed Problem Gastroduodenitis (644984733) Gastritis without bleeding, unspecified chronicity, unspecified gastritis type (K29.70) Active confirmed Problem Gastroesophageal reflux disease (702553650) Gastroesophageal reflux disease, unspecified whether esophagitis present (K21.9) Active confirmed Problem Unstable angina co-occurrent and due to coronary arteriosclerosis (65903902142366988) Coronary artery disease involving afognak coronary artery of af[place] heart with unstable angina pectoris (I25.110) Active confirmed Problem Chronic kidney disease stage 3A (disorder) (769611622) Stage 3a chronic kidney disease (CKD) (N18.31) Active confirmed Vital Signs Heart Rate 80 /min 12/17/2024 Blood pressure diastolic 74 mm Hg 12/17/2024 Height 68.75 in 12/17/2024 Blood pressure systolic 120 mm Hg 12/17/2024 Weight 134.0 lbs 12/17/2024 BMI 19.93 kg/m2 12/17/2024 Encounters Encounter Location Date Provider Diagnosis Bernice [address] [facility] [address] [place] [id number] 01/18/2024 Shanda Tank Renal insufficiency N28.9 [facility] [address] [place] [id number] 04/19/2024 Shanda Tank Nausea and vomiting in adult R11.2 ; Esophageal dysphagia R13.19 ; Esophageal spasm K22.4 and Gastritis without bleeding, unspecified chronicity, unspecified gastritis type K29.70 [facility] [address] [place] [id number] 07/12/2024 Shanda Tank Esophageal dysmotili ty K22.4 ; Chronic gastritis without bleeding, unspecified gastritis type K29.50 ; Chronic GERD K21.9 and Weight loss R63.4 [facility] [address] [place] [id number] 07/30/2024 Elodia Patton Weight loss R63.4 ; Dysphagia R13.10 and Dyspepsia K30 [facility] [address] [place] [id number] 08/20/2024 Elodia Patton Oropharyngeal dyspha selwyn R13.12 ; Dysuria R30.0 and BMI 20.0-20.9, adult Z68.20 [facility] [address] [place] [id number] 10/25/2024 Shawn Falconer Chronic rhinitis J31 .0 ; Nausea R11.0 ; Weight loss R63.4 ; Renal insufficiency N28.9 and Restless leg G25.81 [facility] [address] [place] [id number] 11/19/2024 Elodia Patton Esophageal dysphagia R13.19 ; ASCVD (arteriosclerotic cardiovascular disease) I25.10 ; Atherosclerosis of afogn[place] coronary artery without angina pectoris, unspecified whether af[place] or transplanted heart I25.10 ; Status post coronary artery stent placement Z95.5 ; Gastritis without bleeding, unspecified chronicity, unspecified gastritis type K29.70 ; Hypomagnesemia E83.42 and Carotid stenosis, bilateral I65.23 [facility] [address] [place], [place] [id number] 12/17/2024 Elodia Patton ASCVD (arteriosclero tic cardiovascular disease) I25.10 ; Chronic GERD K21.9 ; Esophageal dysmotility K22.4 ; Carotid stenosis, bilateral I65.23 ; Status post coronary artery stent placement Z95.5 ; Situational depression F43.21 ; History of GI bleed Z87.19 and Body mass index (BMI) of 19.0 to 19.9 in adult Z68.1 [facility] [address] [place], [place] [id number] 01/12/2024 Shanda Crowdy Iron deficiency E61. 1 [facility] [address] [place], [place] [id number] 01/19/2024 Shanda Crowdy [facility] [address] [place], [place] [id number] 01/25/2024 Elodia Patton [facility] [address] [place], [place] [id number] 04/20/2024 Hsanda Crowdy [facility] [address] [place], [place] [id number] 04/25/2024 Shanda Crowdy [facility] [address] [place], [place] [id number] 07/12/2024 Shanda Crowdy [facility] [address] [place] [id number] 10/23/2024 Elodia Patton [facility] [address] [place] [id number] 10/26/2024 Shawn Mcgee [facility] [address] [place], [place] [id number] 11/05/2024 Elodia Patton [facility] [address] [place], [place] [id number] 11/22/2024 Elodia Patton [facility] [address] [facility] [address] [place], [place] [id number] 12/03/2024 Elodia Patton Assessments Encounter Date Diagnosis (ICD Code) Assessment Notes Treatment Notes Treatment Clinical Notes Section Notes 08/20/2024 Dysuria (ICD-10 - R30.0) 08/20/2024 Oropharyngeal dysphagia (ICD-10 - R13.12) 07/30/2024 Weight loss (ICD-10 - R63.4) 07/30/2024 Dysphagia (ICD-10 - R13.10) 07/12/2024 Chronic gastritis without bleeding, unspecified gastritis type (ICD-10 - K29.50) 07/12/2024 Esophageal dysmotility (ICD-10 - K22.4) The patient has been taking voquezna, iberogast, and align with no improvement. He will call and get a f/u with Dr. Vinson. We will try again to get records from Dr. Douglas and to obtain the MRI report. 01/12/2024 Iron deficiency (ICD-10 - E61.1) 01/18/2024 Renal insufficiency (ICD-10 - N28.9) 04/19/2024 Nausea and vomiting in adult (ICD-10 - R11.2) 04/19/2024 Esophageal dysphagia (ICD-10 - R13.19) 11/19/2024 ASCVD (arteriosclerotic cardiovascular disease) (ICD-10 - I25.10) 11/19/2024 Esophageal dysphagia (ICD-10 - R13.19) 12/17/2024 ASCVD (arteriosclerotic cardiovascular disease) (ICD-10 - I25.10) 12/17/2024 Chronic GERD (ICD-10 - K21.9) 10/25/2024 Chronic rhinitis (ICD-10 - J31.0) 10/25/2024 Nausea (ICD-10 - R11.0) 10/25/2024 Weight loss (ICD-10 - R63.4) 12/17/2024 Esophageal dysmotility (ICD-10 - K22.4) 11/19/2024 Atherosclerosis of afogn[place] coronary artery without angina pectoris, unspecified whether afognak or transplanted heart (ICD-10 - I25.10) 04/19/2024 Esophageal spasm (ICD-10 - K22.4) 07/12/2024 Chronic GERD (ICD-10 - K21.9) 08/20/2024 BMI 20.0-20.9, adult (ICD-10 - Z68.20) 07/30/2024 Dyspepsia (ICD-10 - K30) 07/12/2024 Weight loss (ICD-10 - R63.4) 04/19/2024 Gastritis without bleeding, unspecified chronicity, unspecified gastritis type (ICD-10 - K29.70) Will speak with cardiology to see if he can stop his aspirin. 11/19/2024 Status post coronary artery stent placement (ICD-10 - Z95.5) 12/17/2024 Carotid stenosis, bilateral (ICD-10 - I65.23) 10/25/2024 Renal insufficiency (ICD-10 - N28.9) 12/17/2024 Status post coronary artery stent placement (ICD-10 - Z95.5) 10/25/2024 Restless leg (ICD-10 - G25.81) 11/19/2024 Gastritis without bleeding, unspecified chronicity, unspecified gastritis type (ICD-10 - K29.70) 12/17/2024 Situational depression (ICD-10 - F43.21) 11/19/2024 Hypomagnesemia (ICD-10 - E83.42) 12/17/2024 History of GI bleed (ICD-10 - Z87.19) 11/19/2024 Carotid stenosis, bilateral (ICD-10 - I65.23) 12/17/2024 Body mass index (BMI) of 19.0 to 19.9 in adult (ICD-10 - Z68.1) Plan Of Treatment Pending Test Test Name Order Date CTA : Neck 12/17/2024 Next Appt Details Provider Name:Elodia Payne er, 01/07/2025 03:15:00 PM, [address], [place], [place], [id number], Insurance Providers Payer Name Payer Address Payer Phone Subscriber Number Group Number Insured Name Patient Relationship to Insured Coverage Start Date Coverage End Date [facility] [address] [place] [address] [id number] МАРИНА HALL Self - patient is the [...] Date(Month/Year) C4-C5 Neck Fusion 2016 [place]- [place] 12/31/2019 Hospitalization History Reason Date(Month/Year) M I 06/03/2023
--- OUTSIDE RECORDS SUMMARY | 2024-12-27 08:00 | XMS_ITS | Encounter Summary ---
Author Organization [employer] ([place], [place], [place], [place]) Address [address] [place] [address] Care Team Providers Care Able Seaman Name Role Phone Carl Patton MD Primary Care Provider [phone] Encounter Details Date Type Department Care Team (Late st Contact Info) Description 07/06/2021 Transcribed Document [facility] [address] [place] [address] ProviderLucy MD [address] [place] [address] Social History Tobacco Use Types [...] Do you speak a language other than [place] [facility]? 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
--- NOTE | 2024-12-27 08:06 | CT_ITS ---
FINAL REPORT TECHNIQUE: Following the administration of intravenous contrast, helically acquired axial multidetector CT images were obtained from the vertex to the aortic arch. Multiplanar, MIP and 3-D reconstructions were performed. This study was performed with techniques to keep radiation doses as low as reasonably achievable, (ALARA). Individualized dose reduction techniques using automated exposure control or adjustment of mA and/or kV according to the patient's size were employed. CLINICAL HISTORY: CAROTID STENOSIS COMPARISON: None FINDINGS: CTA NECK Thin section axial CT with contrast with multiplanar reconstruction NASCET criteria and technique was utilized during interpretation. Aortic arch: Arch shows no significant narrowing. Great vessel origins are widely patent . Right carotid: No significant stenosis is seen of the cervical common or internal carotid artery . Left carotid: The left common carotid artery is patent. There is plaque, partially calcified, present in the proximal left internal carotid artery with significant stenosis approaching 80%. The more distal left internal carotid artery is patent. Vertebrals: No significant stenosis is present . IMPRESSION: Calcified plaque is present in the proximal left internal carotid artery with significant stenosis of approximately 80%. No significant stenosis in the right carotid and bilateral vertebral arteries. Reviewed, Interpreted and Dictated by Jennifer Rosario MD Transcribed by Lesa Espinoza Authenticated and . [facility]
[2024-12-27] MEDS: IOPAMIDOL-370 (76%);100ML BOTTLE 80 ML IV (08:30)
[2024-12-27] MEDS: SODIUM CHLORIDE 0.9% 10ML SYR (RAD ONLY) 10 ML IV (08:30)
[2024-12-27] MEDS: 0.9 % SODIUM CHLORIDE 50 ML VIAL 10 ML IV (08:30)
== END 2024-12-27 23:59 | disposition home or self-care (01) ==
LOC: RAD 07:58
PROVIDERS: PCP Family Medicine; Visit Provider Family Medicine
DX: I65.22 Occlusion and stenosis of left carotid artery (principal)
CPT/HCPCS: 70498; Q9967